=== PATIENT | female | born 1940 | race Caucasian/White ===

== ENCOUNTER → 2019-07-02 | Outpatient (CLI) | payer MEDICARE, SELFPAY ==
[2019-07-02 11:42] LABS: Thyroid Stim Hormone (TSH) 3.13 uIU/mL (0.358-3.74)
[2019-07-02 12:14] LABS: Vitamin B12 382 pg/mL (211-911)
[2019-07-04 11:07] LABS: Ceruloplasmin 30.5 mg/dL (19.0-39.0)
[2019-07-04 12:59] LABS: Copper, Serum or Plasma 143 ug/dL (72-166)
[2019-07-04 13:06] LABS: ANTINUCLEAR ANTIBODIES DIRECT Negative (Negative)
== END | disposition home or self-care (01) ==
PROVIDERS: Family Provider Family Medicine; PCP Family Medicine; Referring Provider Psychiatry & Neurology Neurology; Visit Provider Psychiatry & Neurology Neurology
DX: R25.1 Tremor, unspecified (principal)
CPT/HCPCS: 36415; 82390; 82525; 82607; 84443; 86038

== ENCOUNTER → 2019-09-12 | Outpatient (CLI) | payer MEDICARE, SELFPAY ==
[2019-09-12 12:14] LABS: Hematocrit 33.5 % (37-47); Hemoglobin 10.7 g/dL (12.0-15.0); Mean Corp Hgb Conc 31.9 g/dL (32-36); Mean Corpuscular Hgb 28.8 pg (27.0-32.0); Mean Corpuscular Volume 90.1 fL (81-99); Mean Platelet Vol. 12.4 fl (6.2-12.0); Platelet Count 112 K/mm3 (150-450); RBC Distribution Width CV 13.3 % (11.6-14.6); RBC Distribution Width SD 43.8 fl (35.1-43.9); Red Blood Count 3.72 M/mm3 (4.2-5.4)
[2019-09-12 13:42] LABS: ALB/GLOB Ratio 0.8 RATIO (0.9-2.4); AST(SGOT) 31 U/L (15-37); Alanine Aminotransfer ALT/SGPT 36 U/L (13-56); Albumin, Serum 3.4 g/dL (3.2-5.0); Alkaline Phosphatase 78 U/L (45-117); Anion Gap 11 (5-15); BUN 68 mg/dL (7-18); BUN/Creat Ratio 40.5 RATIO (10-20); Chloride 106 mmol/L (98-107); Creatinine, Serum 1.68 mg/dL (0.55-1.02); EST Glomerular Filtration Rate 31 mL/min (>60); Est Glom Filt Rate - Afr Amer 38 mL/min (>60); Globulin 4.4 g/dL (2.2-4.2); Glucose 97 mg/dL (74-106); Potassium 3.7 mmol/L (3.5-5.1); Protein, Total 7.8 g/dL (6.4-8.2); Sodium Level 142 mmol/L (136-145)
== END | disposition home or self-care (01) ==
LOC: LAB 11:10
PROVIDERS: Family Provider Family Medicine; PCP Family Medicine; Referring Provider Psychiatry & Neurology Neurology; Visit Provider Psychiatry & Neurology Neurology
DX: R25.1 Tremor, unspecified (principal)
CPT/HCPCS: 36415; 80053; 85027

== ENCOUNTER → 2025-03-04 | Outpatient (CLI) | payer MEDICARE, OTHER, SELFPAY ==
--- NOTE | 2025-03-04 13:13 | VDUE_ITS ---
Reason For Study Reason For Study: Pre-op AVF planning Right Lower Arm Left Arm Distal Radial artery diameter 0.18 x 0.20 cm. Left Brachial artery diameter 0.41 x 0.43 mm. Proximal Radial artery waveform is triphasic . Left Brachial artery waveform is triphasic . Proximal Radial artery PSV = 130.0 cm/s. Left Brachial artery PSV = 164.4 cm/s. Right Arm Cephalic Vein at distal forearm measures 0.16 x 0.16 Right Brachial artery diameter 0.36 x 0.44 mm. cm. Right Brachial artery waveform is triphasic . Cephalic Vein at mid forearm measures 0.20 x 0.22 cm. Right Brachial artery PSV = 146.2 cm/s. Cephalic Vein proximal forearm measures 0.20 x 0.18 Cephalic Vein at distal forearm measures 0.19 x 0.19 cm. cm. Cephalic Vein distal upper arm measures 0.18 x 0.20 Cephalic Vein at mid forearm measures 0.20 x 0.19 cm. cm. Cephalic Vein proximal forearm measures 0.19 x 0.18 Cephalic Vein at mid upper arm measures 0.20 x 0.20 cm. cm. Cephalic Vein distal upper arm measures 0.24 x 0.23 Cephalic Vein at proximal upper arm measures 0.19 x cm. 0.21 cm. Cephalic Vein at mid upper arm measures 0.28 x 0.30 Unable to visualize Lt Basilic Vein. cm. Left Lower Arm Cephalic Vein at proximal upper arm measures 0.30 x Distal Radial artery diameter 0.22 x 0.22 mm. 0.32 cm. Proximal Radial artery waveform is triphasic . Proximal Basilic vein measures 0.57 x 0.63 cm. Proximal Radial artery PSV =162.9/2.3 cm/s. Mid Basilic vein measures 0.42 x 0.37 cm. Distal Basilic vein measures 0.48 x 0.51 cm. Procedure This was a bilateral upper extremity venous doppler examination. Exam performed in department. VL/Dialysis Vein Map PRE-OP BILAT Interpretation Summary Bilateral upper extremity veins patent with measurements above. Bilateral upper extremity arteries patent with normal waveforms and measurement s above. Ordering Physician: Lindsey Simon Referring Physician: Gigi Deleon Performed By: Dilip Lawrence RVT ???
== END | disposition home or self-care (01) ==
PROVIDERS: PCP Internal Medicine; Referring Provider Physician Assistant; Visit Provider Physician Assistant
DX: Z01.818 Encounter for other preprocedural examination (principal); N18.4 Chronic kidney disease, stage 4 (severe)
CPT/HCPCS: 93985

== ENCOUNTER 2025-04-27 05:27 | Day surgery (SDC) | payer MEDICARE, OTHER, SELFPAY ==
--- NOTE | 2025-04-06 10:44 | PAT.ANESEVAL ---
Pre-Assessment Diagnosis/Proposed Procedure Planned Operative Procedure(s): (R) Right Arm Arteriovenous Fistula,Creation Anesthesia History Anesthesia History - clinical transformation specialist: Anesthesia History - clinical transformation specialist Hx Hospitalization No 04/03/25 15:27 Any Problems With Anesthesia No 04/03/25 15:27 Cholinesterase deficiency No 04/03/25 15:27 You/Your Family Experience No 04/03/25 15:27 fever (hyperthermia) with Relationship Recent Exposure to Contagious Disease Does patient have nerve No 04/03/25 15:27 stimulator Patient instructed to have device shut off --Does patient have Pacemaker or ICD? When Was Last Pacemaker Check QUESTION #4 FULL TEXT: You/Your Family Experience fever (hyperthermia) with Anesthesia Last Oral Intake Last Oral intake: Last Oral Intake NPO since Meds taken in AM with sips of water? Meds patient instructed to take am of surgery PONV PONV - clinical transformation specialist: PONV - clinical transformation specialist Female Yes 04/03/25 15:27 HX of Motion Sickness No 04/03/25 15:27 HX of N/V After Surgery No 04/03/25 15:27 Non-Smoker Yes 04/03/25 15:27 Duration of Surgery greater No 04/03/25 15:27 than 60 minutes Number of Risk Factors 2 04/03/25 15:27 PONV Score Moderate Risk 04/03/25 15:27 Respiratory Assessment Respiratory Assessment - clinical transformation specialist: Respiratory Tract Infection Hx - clinical transformation specialist Hx Respiratory Tract Infection No 04/03/25 15:27 STOP Sleep Apnea STOP Sleep Apnea - clinical transformation specialist: STOP Sleep Apnea - clinical transformation specialist Hx Hypertension Yes: CONTROLLED ON MED 04/03/25 15:27 Hx Sleep Apnea No 04/03/25 15:27 CPAP BIPAP Do you snore loudly (louder No 04/03/25 15:27 than talking or can be heard Do you often feel tired/ No 04/03/25 15:27 fatigued/ sleepy during daytime? Has anyone observed you stop No 04/03/25 15:27 breathing during sleep? STOP Results Negative 04/03/25 15:27 QUESTION #5 FULL TEXT : Do you snore loudly (louder than talking or can be heard through closed doors)? 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 Specify any problems Hx of Preganancy in last 3 No 04/03/25 15:27 Months Nurse Filling Out Transfusion VCHRISTIN 04/03/25 15:27 & Questions: Date: 04/03/25 04/03/25 15:27 Time: 04/03/25 15:27 Patient unable to answer at this time (ie. confused, unrespo /Reproduction History /Reproductive History - clinical transformation specialist: /Reproductive Hx- clinical transformation specialist Hx Now No 04/03/25 15:27 Gestational Age (in weeks): EDC: Hx Hx Para Hx Section SAB No 04/03/25 15:27 PFSH Medical History (Updated 04/06/25 @ 10:33 by Evelyn Gorman) Wears dentures Wears glasses Post-menopausal Depression Diabetes Walker as ambulation aid Arthritis History of renal disease Tremor Stroke/cerebrovascular accident Non-smoker BiPAP (biphasic positive airway pressure) dependence Sleep apnea Shortness of breath on exertion History of pain when walking History of edema History of echocardiogram Cardiology follow-up encounter Anemia in chronic kidney disease Secondary hyperparathyroidism Essential hypertension CKD (chronic kidney disease), stage IV Home Medications ?Medication ?Instructions ?Recorded ?Last Taken ?Type acetaminophen 325 mg capsule 325 mg PO QHS 02/23/25 Unknown History allopurinol 100 mg tablet 100 mg PO DAILY 02/23/25 Unknown History amlodipine 10 mg tablet 10 mg PO QDAY 02/23/25 Unknown History aspirin 81 mg tablet,delayed 81 mg PO QDAY 02/23/25 Unknown History release atorvastatin 40 mg tablet 40 mg PO QDAY 02/23/25 Unknown History buspirone 10 mg tablet 10 mg PO BID 02/23/25 Unknown History calcitriol 0.5 mcg capsule 0.5 mcg PO QDAY 02/23/25 Unknown History cholecalciferol (vitamin D3) 25 25 mcg PO QDAY 02/23/25 Unknown History mcg (1,000 unit) capsule clonidine HCl 0.2 mg tablet 0.2 mg PO BID 02/23/25 Unknown History furosemide 40 mg tablet (Lasix) 40 mg PO BID 02/23/25 Unknown History hydralazine 25 mg tablet 25 mg PO TID 02/23/25 Unknown History magnesium oxide 400 mg (241.3 mg 400 mg PO BID 02/23/25 Unknown History magnesium) tablet melatonin 3 mg capsule 3 mg PO HS 02/23/25 Unknown History metolazone 5 mg tablet 5 mg PO Q12H 02/23/25 Unknown History ropinirole 0.25 mg tablet 0.5 mg PO QHS 02/23/25 Unknown History spironolactone 100 mg tablet 100 mg PO QDAY 02/23/25 Unknown History carboxymethylcellulose sodium 0.5 1 drp EACH EYE DAILY 04/06/25 Unknown History % eye drops (Refresh Tears) epoetin herbert-epbx 10,000 unit/mL 10,000 unit subcut .[id number] 04/06/25 Unknown History injection solution (Retacrit) Allergy/AdvReac Type Severity Reaction Status Date / Time No Known Allergies Allergy Verified 04/03/25 15:13 Surgical History Hx of bilateral cataract extraction Hx of eye surgery Hx of hernia repair Hx laparoscopic cholecystectomy Hx of hysterectomy History of renal stent Social History adopted: No current occupational exposures/hazards: No pets and animals: No history of recent travel: No Smoking Status: Never smoker Electronic Cigarette Use: not used second hand exposure: No alcohol intake: never substance use type: does not use diet: diabetic Audit: Pertinent Findings Pertinent Findings EKG Perinent findings: 07/2022: Sinus Bradycardia with Sinus arrhythmia, nonspecific T wave abnormality Echo (EF%) pertinent findings: TTE 10/2021: Normal LV size and systolic function LVEF of 55-60%; Mild TR with normal PA pressures Recommendation Anesthesia Recommendation Anesthesia recommendation: F/U recommended (She was admitted for decompensated heart failure in the last two years. I did not see a cardiology note, but she should have cardiac clearance done (along with having cardiology note available))
--- NOTE | 2025-04-20 19:34 | PAT.ANE_ITS ---
Pre-Assessment Diagnosis/Proposed Procedure Planned Operative Procedure(s): (R) Right Arm Arteriovenous Fistula,Creation Anesthesia History Anesthesia History - role player: Anesthesia History - role player Hx Hospitalization No 04/03/25 15:27 Any Problems With Anesthesia No 04/03/25 15:27 Cholinesterase deficiency No 04/03/25 15:27 You/Your Family Experience No 04/03/25 15:27 fever (hyperthermia) with Relationship Recent Exposure to Contagious Disease Does patient have nerve No 04/03/25 15:27 stimulator Patient instructed to have device shut off --Does patient have Pacemaker or ICD? When Was Last Pacemaker Check QUESTION #4 FULL TEXT: You/Your Family Experience fever (hyperthermia) with Anesthesia Last Oral Intake Last Oral intake: Last Oral Intake NPO since Meds taken in AM with sips of water? Meds patient instructed to take am of surgery PONV PONV - role player: PONV - role player Female Yes 04/03/25 15:27 HX of Motion Sickness No 04/03/25 15:27 HX of N/V After Surgery No 04/03/25 15:27 Non-Smoker Yes 04/03/25 15:27 Duration of Surgery greater No 04/03/25 15:27 than 60 minutes Number of Risk Factors 2 04/03/25 15:27 PONV Score Moderate Risk 04/03/25 15:27 Respiratory Assessment Respiratory Assessment - role player: Respiratory Tract Infection Hx - role player Hx Respiratory Tract Infection No 04/03/25 15:27 STOP Sleep Apnea STOP Sleep Apnea - role player: STOP Sleep Apnea - role player Hx Hypertension Yes: CONTROLLED ON MED 04/03/25 15:27 Hx Sleep Apnea No 04/03/25 15:27 CPAP BIPAP Do you snore loudly (louder No 04/03/25 15:27 than talking or can be heard Do you often feel tired/ No 04/03/25 15:27 fatigued/ sleepy during daytime? Has anyone observed you stop No 04/03/25 15:27 breathing during sleep? STOP Results Negative 04/03/25 15:27 QUESTION #5 FULL TEXT : Do you snore loudly (louder than talking or can be heard through closed doors)? 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 Specify any problems Hx of Preganancy in last 3 No 04/03/25 15:27 Months Nurse Filling Out Transfusion VCHRISTIN 04/03/25 15:27 & Questions: Date: 04/03/25 04/03/25 15:27 Time: 04/03/25 15:27 Patient unable to answer at this time (ie. confused, unrespo /Reproduction History /Reproductive History - role player: /Reproductive Hx- role player Hx Now No 04/03/25 15:27 Gestational Age (in weeks): EDC: Hx Hx Para Hx Section SAB No 04/03/25 15:27 PFSH Medical History Wears dentures Wears glasses Post-menopausal Depression Diabetes Walker as ambulation aid Arthritis History of renal disease Tremor Stroke/cerebrovascular accident Non-smoker BiPAP (biphasic positive airway pressure) dependence Sleep apnea Shortness of breath on exertion History of pain when walking History of edema History of echocardiogram Cardiology follow-up encounter Anemia in chronic kidney disease Secondary hyperparathyroidism Essential hypertension CKD (chronic kidney disease), stage IV Home Medications ?Medication ?Instructions ?Recorded ?Last Taken ?Type acetaminophen 325 mg capsule 325 mg PO PRN pain Unknown History allopurinol 100 mg tablet 50 mg PO DAILY 02/23/25 Unkn own History amlodipine 10 mg tablet 10 mg PO QDAY 02/23/25 Unkno wn History aspirin 81 mg tablet,delayed 81 mg PO QDAY 02/23/25 Un known History release atorvastatin 40 mg tablet 40 mg PO QDAY 02/23/25 Unkno wn History buspirone 10 mg tablet 10 mg PO BID 02/23/25 Unknow n History calcitriol 0.5 mcg capsule 0.5 mcg PO QDAY 02/23/25 Un known History cholecalciferol (vitamin D3) 25 25 mcg PO QDAY 5 Unknown History mcg (1,000 unit) capsule clonidine HCl 0.2 mg tablet 0.2 mg PO TID 02/23/25 Unk nown History furosemide 40 mg tablet (Lasix) 40 mg PO BID 02/23/25 Unknown History hydralazine 25 mg tablet 25 mg PO TID 02/23/25 Unknow n History magnesium oxide 400 mg (241.3 mg 400 mg PO BID 5 Unknown History magnesium) tablet melatonin 3 mg capsule 3 mg PO HS 02/23/25 Unknown History ropinirole 0.25 mg tablet 0.5 mg PO QHS 02/23/25 Unkno wn History spironolactone 100 mg tablet 100 mg PO QDAY 02/23/25 U nknown History carboxymethylcellulose sodium 0.5 1 drp EACH EYE DAILY 04/06/25 Unknown History % eye drops (Refresh Tears) epoetin herbert-epbx 10,000 unit/mL 10,000 unit subcut .Q 2WEEKS 04/06/25 Unknown History injection solution (Retacrit) Allergy/AdvReac Type Severity Reaction Status Date / Time No Known Allergies Allergy Verified 04/03/25 15:13 Surgical History Hx of bilateral cataract extraction Hx of eye surgery Hx of hernia repair Hx laparoscopic cholecystectomy Hx of hysterectomy History of renal stent Social History adopted: No current occupational exposures/hazards: No pets and animals: No history of recent travel: No Smoking Status: Never smoker Electronic Cigarette Use: not used second hand exposure: No alcohol intake: never substance use type: does not use diet: diabetic Audit: Pertinent Findings HISTORY of Pertinent Findings History of Pertinent Findings: EKG Pertinent Findings EKG Perinent findings 07/2022: Sinus Bradycardia 04/06/25 10:47 with Sinus arrhythmia, nonspecific T wave abnormality Echo Pertinent Findings Echo (EF%) pertinent findings TTE 10/2021: Normal LV size 04/06/25 10:47 and systolic function LVEF of 55-60%; Mild TR with normal PA pressures Pertinent Findings Consult pertinent findings: April 10, 2025. aVldo Gray CNP. No further testing needed prior to procedure. Patient is cleared for surgery. Recommendation Anesthesia Recommendation Anesthesia recommendation: OPTIMIZED for anesthesia
[2025-04-27] VITALS (8 sets, daily range): BP systolic 165–195; BP diastolic 45–63; PULSE 66–79; RESP 16–18; TEMP 36.3–36.9; O2SAT 92–97; BMI 26.2
--- OUTSIDE RECORDS SUMMARY | 2025-04-27 05:37 | XMS RPT_ITS | CCD ---
Author Organization [facility] ion [facility] [employer] [facility] Care Team Providers Care Dental Practice Manager Name Role Phone Unavailable Primary Care Provider UnavailAvelino Macias MD Primary Care Provider [phone] Avelino Deleon MD Primary Care Provider Avelino Deleon MD Primary Care Provider LAURIE STEIN Attending Unavailable LAURIE STEIN Attending Unavailable LATOUF, BUTROS Referring Unavailable Latouf, Butros Primary Care Provider Charlene PROCUREMENT SPECIALIST - ECONOMIC DEVELOPMENT DIRECTOR, Rosario K Unavailable CHARLIE SYED Referring Unavailable LATOUF, BUTROS Primary Care Unavailable NONE, PCP Referring Unavailable JOY PAGE Admitting Unavailable LATOUF, BUTROS Primary Care Unavailable REBECCA RODRIGUEZ Consulting Unavailable LAURIE TAMEZ Attending Unavailable Avelino Deleon MD Primary Care Provider [phone] Corporate, Doctor Attending Unavailable Devon Toussaint Attending Unavailable Devon Toussaint Referring Unavailable Corporate, Doctor Attending Unavailable Dr. Avelino Deleon MD Primary Care Provider [phone] Dr. Avelino Deleon MD Referring Provider [phone] Lindsey Godinez Attending Provider Lindsey Godinez Referring Provider Dr. Jose C Ashraf MD Attending Provider HAMZAH KILPATRICK Attending Unavailable LATOUF, BUTROS Primary Care Unavailable LUCY SNEED MD Attending Unava ilable LUCY SNEED MD Primary Care Unava ilable BUCKTOWARSINKaitlynn, LUCY HOWARD Admitting Unava ilable AVELINO DELEON MD Consulting Unavailable PROVIDER, UNKNOWN Consulting Unavailable PROVIDER, UNKNOWN Consulting Unavailable PROVIDER, UNKNOWN Consulting Unavailable BUCKTOWARLUCY GONZALES MD Attending Unava ilable BUCKTOWARSINKaitlynn, LUCY HOWARD Admitting Unava ilable BUCKTOWARSINKaitlynn, LUCY HOWARD Primary Care Unava ilable AVELINO DELEON MD Consulting Unavailable PROVIDER, UNKNOWN Consulting Unavailable PROVIDER, UNKNOWN Consulting Unavailable PROVIDER, UNKNOWN Consulting Unavailable BUCKTOWARSINKaitlynn, LUCY HOWARD Attending Unava ilable BUCKTOWARSING, LUCY HOWARD Admitting Unava ilable BUCKTOWARSING, LUCY HOWARD Primary Care Unava ilable LATOUAVELINO Domínguez MD Consulting Unavailable PROVIDER, UNKNOWN Consulting Unavailable PROVIDER, UNKNOWN Consulting Unavailable PROVIDER, UNKNOWN Consulting Unavailable BUCKTOWARSINKaitlynn, LUCY HOWARD Attending Unava ilable BUCKTOWARSINKaitlynn, LUCY HOWARD Primary Care Unava ilable BUCKTOWARCHRISTIAN, LUCY HOWARD Admitting Unava ilable LATOUAVELINO Domínguez MD Consulting Unavailable PROVIDER, UNKNOWN Consulting Unavailable PROVIDER, UNKNOWN Consulting Unavailable PROVIDER, UNKNOWN Consulting Unavailable BUCKTOWARLUCY GONZALES MD Primary Care Unava ilable BUCKTOWARCHRISTIAN, LUCY HOWARD Admitting Unava ilable BUCKTOWARSING, LUCY HOWARD Attending Unava ilable KENROYOUAVELINO Domínguez MD Consulting Unavailable PROVIDER, UNKNOWN Consulting Unavailable PROVIDER, UNKNOWN Consulting Unavailable PROVIDER, UNKNOWN Consulting Unavailable AVELINO DELEON MD Consulting Unavailable AVELINO DELEON MD Attending Unavailable AVELINO DELEON MD Primary Care Unavailable AVELINO DELEON MD Admitting Unavailable PROVIDER, UNKNOWN Consulting Unavailable PROVIDER, UNKNOWN Consulting Unavailable PROVIDER, UNKNOWN Consulting Unavailable AVELINO DELEON MD Attending Unavailable AVELINO DELEON MD Consulting Unavailable AVELINO DELEON MD Admitting Unavailable AVELINO DELEON MD Primary Care Unavailable PROVIDER, UNKNOWN Consulting Unavailable PROVIDER, UNKNOWN Consulting Unavailable PROVIDER, UNKNOWN Consulting Unavailable LUCY SNEED MD Referring Unava ilable AVELINO DELEON MD Attending Unavailable AVELINO DELEON MD Primary Care Unavailable AVELINO DELEON MD Consulting Unavailable AVELINO DELEON MD Admitting Unavailable PROVIDER, UNKNOWN Consulting Unavailable PROVIDER, UNKNOWN Consulting Unavailable PROVIDER, UNKNOWN Consulting Unavailable BUCKTOWARSINLUCY Calderón MD Attending Unava ilable BUCKTOWARSINLUCY Calderón MD Admitting Unava ilable BUCKTOWARLUCY GONZALES MD Primary Care Unava ilable LATOUCatrachita, AVELINO HOWARD Consulting Unavailable PROVIDER, UNKNOWN Consulting Unavailable PROVIDER, UNKNOWN Consulting Unavailable PROVIDER, UNKNOWN Consulting Unavailable YOLANDATOLUCY JAIME MD Attending Unava ilable BUCKTOWARCHRISTIAN, LUCY HOWARD Primary Care Unava ilable YOLANDATOWARLUCY GONZALES MD Admitting Unava ilable LATOUF, AVELINO HOWARD Consulting Unavailable PROVIDER, UNKNOWN Consulting Unavailable PROVIDER, UNKNOWN Consulting Unavailable PROVIDER, UNKNOWN Consulting Unavailable BUCKTOWARCHRISTIAN, LUCY HOWARD Attending Unava ilable BUCKTOWARSINLUCY Calderón MD Primary Care Unava ilable BUCKTOWARSINKaitlynn, LUCY HOWARD Admitting Unava ilable LATOUF, AVELINO HOWARD Consulting Unavailable PROVIDER, UNKNOWN Consulting Unavailable PROVIDER, UNKNOWN Consulting Unavailable PROVIDER, UNKNOWN Consulting Unavailable BUCKTOYENI, LUCY HOWARD Attending Unava ilable BUCKTOWARCHRISTIAN, LUCY HOWARD Primary Care Unava ilable BUCKTOWARSINKaitlnyn, LUCY HOWARD Admitting Unava ilable LATOUF, AVELINO HOWARD Referring Unavailable LATOUCatrachita, AVELINO HOWARD Consulting Unavailable PROVIDER, UNKNOWN Consulting Unavailable PROVIDER, UNKNOWN Consulting Unavailable PROVIDER, UNKNOWN Consulting Unavailable BUCKTOWARLUCY GONZALES MD Attending Unava ilable BUCKTOWARSINLUCY Calderón MD Primary Care Unava ilable YOLANDATOWARLUCY GONZALES MD Admitting Unava ilable LATOUF, AVELINO HOWARD Consulting Unavailable PROVIDER, UNKNOWN Consulting Unavailable PROVIDER, UNKNOWN Consulting Unavailable PROVIDER, UNKNOWN Consulting Unavailable BUCKTOLUCY JAIME MD Attending Unava ilable BUCKTOWARSINLUCY Calderón MD Primary Care Unava ilable BUCKTOWARCHRISTIAN, LUCY HOWARD Admitting Unava ilable LATOUF, AVELINO HOWARD Consulting Unavailable PROVIDER, UNKNOWN Consulting Unavailable PROVIDER, UNKNOWN Consulting Unavailable PROVIDER, UNKNOWN Consulting Unavailable BUCKTOLUCY JAIME MD Attending Unava ilable BUCKTOWARSINLUCY Calderón MD Primary Care Unava ilable BUCKTOWARCHRISTIAN, LUCY HOWARD Admitting Unava ilable LATOUF, AVELINO HOWARD Consulting Unavailable PROVIDER, UNKNOWN Consulting Unavailable PROVIDER, UNKNOWN Consulting Unavailable PROVIDER, UNKNOWN Consulting Unavailable AVELINO DELEON MD Attending Unavailable LATOUAVELINO Domínguez MD Primary Care Unavailable KENROYOUCatrachita, AVELINO HOWARD Consulting Unavailable LATOUF, AVELINO HOWARD Admitting Unavailable PROVIDER, UNKNOWN Consulting Unavailable PROVIDER, UNKNOWN Consulting Unavailable PROVIDER, UNKNOWN Consulting Unavailable LUCY SNEED MD Primary Care Unava ilable YOLANDATOWARLUCY GONZALES MD Attending Unava ilable BUCKTOWARSINKatilynn, LUCY HOWARD Admitting Unava ilable LATOUF, AVELINO HOWARD Referring Unavailable LATOUCatrachita, AVELINO HOWARD Consulting Unavailable PROVIDER, UNKNOWN Consulting Unavailable PROVIDER, UNKNOWN Consulting Unavailable PROVIDER, UNKNOWN Consulting Unavailable YOLANDATOWARLUCY GONZALES MD Primary Care Unava ilable BUCKTOWARSINKaitlynn, LUCY HOWARD Attending Unava ilable BUCKTOWARSINKaitlynn, LUCY HOWARD Admitting Unava ilable LATOUF, AVELINO HOWARD Consulting Unavailable PROVIDER, UNKNOWN Consulting Unavailable PROVIDER, UNKNOWN Consulting Unavailable PROVIDER, UNKNOWN Consulting Unavailable YOLANDATOLUCY JAIME MD Primary Care Unava ilable BUCKTOWARSINKaitlynn, LUCY HOWARD Attending Unava ilable BUCKTOWARSING, LUCY HOWARD Admitting Unava ilable LATOUF, AVELINO HOWARD Referring Unavailable LATFRANCOIS, AVELINO HOWARD Consulting Unavailable PROVIDER, UNKNOWN Consulting Unavailable PROVIDER, UNKNOWN Consulting Unavailable PROVIDER, UNKNOWN Consulting Unavailable YOLANDATOLUCY JAIME MD Referring Unava ilable LATOUF, AVELINO HOWARD Attending Unavailable MARY JO, AVELINO HOWARD Primary Care Unavailable AVELINO DELEON MD Consulting Unavailable MARY JO, AVELINO HOWARD Admitting Unavailable PROVIDER, UNKNOWN Consulting Unavailable PROVIDER, UNKNOWN Consulting Unavailable PROVIDER, UNKNOWN Consulting Unavailable AVELINO DELEON MD Attending Unavailable KENROYOUAVELINO Domínguez MD Primary Care Unavailable LATOUCatrachita, AVELINO HOWARD Admitting Unavailable LATOUF, AVELINO HOWARD Consulting Unavailable PROVIDER, UNKNOWN Consulting Unavailable PROVIDER, UNKNOWN Consulting Unavailable PROVIDER, UNKNOWN Consulting Unavailable YOLANDATOLUCY JAIME MD Attending Unava ilable BUCKTOWARSINKaitlynn, LUCY HOWARD Admitting Unava ilable BUCKTOWARSINLUCY Calderón MD Primary Care Unava ilable LATOUF, AVELINO HOWARD Consulting Unavailable PROVIDER, UNKNOWN Consulting Unavailable PROVIDER, UNKNOWN Consulting Unavailable PROVIDER, UNKNOWN Consulting Unavailable YOLANDATOLUYC JAIME MD Attending Unava ilable BUCKTOWARSING, BHAVNISH MD Primary Care Unava ilable YOLANDATOWARLUCY GONZALES MD Admitting Unava ilable LATOUFAVELINO MD Consulting Unavailable PROVIDER, UNKNOWN Consulting Unavailable PROVIDER, UNKNOWN Consulting Unavailable PROVIDER, UNKNOWN Consulting Unavailable BUCKTOWARLUCY GONZALES MD Attending Unava ilable YOLANDATOWARLUCY GONZALES MD Primary Care Unava ilable YOLANDATOWARCHRISTIAN, LUCY HOWARD Admitting Unava ilable LATOUF, AVELINO HOWARD Consulting Unavailable PROVIDER, UNKNOWN Consulting Unavailable PROVIDER, UNKNOWN Consulting Unavailable PROVIDER, UNKNOWN Consulting Unavailable LATOUAVELINO Domínguez MD Consulting Unavailable BUCKTOWARLUCY GONZALES MD Attending Unava ilable BUCKTOWARLUCY GONZALES MD Primary Care Unava ilable BUCKTOWARCHRISTIAN, LUCY HOWARD Admitting Unava ilable PROVIDER, UNKNOWN Consulting Unavailable PROVIDER, UNKNOWN Consulting Unavailable PROVIDER, UNKNOWN Consulting Unavailable BUCKTOLUCY JAIME MD Attending Unava ilable BUCKTOWARCHRISTIAN, LUCY HOWARD Admitting Unava ilable BUCKTOWARCHRISTIAN, LUCY HOWARD Primary Care Unava ilable LATOUCatrachita, AVELINO HOWARD Consulting Unavailable PROVIDER, UNKNOWN Consulting Unavailable PROVIDER, UNKNOWN Consulting Unavailable PROVIDER, UNKNOWN Consulting Unavailable BUCKTOWARLUCY GONZALES MD Admitting Unava ilable BUCKTOWARSINKaitlynn, LUCY HOWARD Attending Unava ilable BUCKTOWARCHRISTIAN, LUCY HOWARD Primary Care Unava ilable AVELINO DELEON MD Consulting Unavailable AVELINO DELEON MD Referring Unavailable PROVIDER, UNKNOWN Consulting Unavailable PROVIDER, UNKNOWN Consulting Unavailable PROVIDER, UNKNOWN Consulting Unavailable BUCKTOLUCY JAIME MD Attending Unava ilable BUCKTOWARSINKaitlynn, LUCY HOWARD Primary Care Unava ilable BUCKTOWARLUCY GONZALES MD Admitting Unava ilable LATOUF, AVELINO HOWARD Consulting Unavailable PROVIDER, UNKNOWN Consulting Unavailable PROVIDER, UNKNOWN Consulting Unavailable PROVIDER, UNKNOWN Consulting Unavailable BUCKTOLUCY JAIME MD Attending Unava ilable BUCKTOWARCHRISTIAN, LUCY HOWARD Primary Care Unava ilable YOLANDATOWARLUCY GONZALES MD Admitting Unava ilable LATOUCatrachita, AVELINO HOWARD Consulting Unavailable PROVIDER, UNKNOWN Consulting Unavailable PROVIDER, UNKNOWN Consulting Unavailable PROVIDER, UNKNOWN Consulting Unavailable BUCKTOLUCY JAIME MD Attending LUCY Sam MD Primary Care LUCY Sam MD Admitting AVELINO Bee MD Consulting Unavailable PROVIDER, UNKNOWN Consulting Unavailable PROVIDER, UNKNOWN Consulting Unavailable PROVIDER, UNKNOWN Consulting Unavailable Latouf, Butros Primary Care Unavailable Jose C Ashraf Attending Unavailable Latouf, Butros Primary Care Unavailable Simon, Lindsey Attending Unavailable Simon, Lindsey Referring Unavailable Cedar GlenJose C juan Attending Unavailable Latouf, Butros Primary Care Unavailable Latouf, Butros Primary Care Unavailable Latouf, Butros Referring Unavailable Lindsey Simon Attending Unavailable Latouf, Butros Referring Unavailable Jose C Ashraf Attending Unavailable Latouf, Butros Primary Care Unavailable Medications Current Medications Medication Drug Class(es) Dates Sig (Normalized) Sig (Original) calcitriol 0.0005 mg oral capsule (2 sources) Vitamin D3 Analog Start: 04-06-2025 take 1 capsule by mouth once daily calcitriol (ROCALTROL) 0.5 mcg capsule Take 0.5 mcg by mouth once daily. 04/06/2025 Active Start: 02-23-2025 take 1 capsule by mo uth once daily Calcitriol 0.5 mcg capsule Discontinued 0.5 ug PO daily February 23, 2025 12:00am chlorthalidone 25 mg oral tablet (12 sources) Thiazide-like Diuretic Start: 02-16-2024 End: 03-17-2024 take 0.5 tablet by mouth once daily chlorthalidone (Hygroton) 25 MG tablet Take 0.5 tablets (12.5 mg) by mouth daily. 15 tablet 0 02/16/2024 03/17/2024 Active Start: 02-13-2024 End: 02-16-2024 chlorthalidone (Hygroton) ta blet 12.5 mg Start: 02-18-2022 End: 04-10-2025 chlorthalidone (HYGROTON) 25 mg tablet Take 25 mg by mouth every 48 hours. 02/18/2022 04/10/2025 Discontinued (Discontinued by another Health Care Provider) End: 02-16-2024 take 1 tablet by mouth every other day chlorthalidone (Hygroton) 25 MG tablet Take 25 mg by mouth every other day. 0 02/16/2024 Discontinued (Stop taking at discharge) Comment on above: Take 25 mg by mouth every 48 hours. cloNIDine hydrochloride 0.2 mg oral tablet (14 sources) Central alpha-2 Adrenergic Agonist Start: take 1 tablet by mouth three times daily cloNIDine HCl (CATAPRES) 0.2 mg tablet Take 0.2 mg by mouth three times a day. 04/06/2025 Active Start: 02-23-2025 take 1 tablet by adali th twice daily Clonidine Hcl 0.2 mg tablet Discontinued 0.2 mg PO TWICE A DAY February 23, 2025 12:00am Start: 05-12-2022 End: 04-10-2025 take 1 tablet by mouth every eight hours as needed cloNIDine HCl (CATAPRES) 0.1 mg tablet Take 1 tablet by mouth every 8 hours as needed (For systolic > 180mmHG). 05/12/2022 04/10/2025 Discontinued (Dosage adjustment) Start: 12-07-2021 take 1 tablet by adali th twice daily cloNIDine HCl (CATAPRES) 0.1 mg tablet Take 1 tablet by mouth twice daily. 60 tablet 1 12/07/2021 Active Comment on above: Take 1 tablet by adali th twice daily. Take 1 tablet by adali th every 8 hours as needed (For systolic > 180mmHG). furosemide 40 mg oral tablet (2 sources) Loop Diuretic Start: 04-08-2025 take 1 tablet by mouth twice daily furosemide (LASIX) 40 mg tablet Take 40 mg by mouth two times a day. 04/08/2025 Active Start: 02-23-2025 take 1 tablet by adali th twice daily as needed Furosemide (Lasix) 40 mg tablet Discontinued 40 mg PO TWICE A DAY as needed February 23, 2025 12:00am metOLazone 5 mg oral tablet (2 sources) Thiazide-like Diuretic Start: 04-06-2025 take 1 tablet by mouth twice daily metOLazone (ZAROXOLYN) 5 mg tablet Take 5 mg by mouth two times a day. 04/06/2025 Active Start: 02-23-2025 take 1 tablet by adali th every twelve hours Metolazone 5 mg tablet Discontinued 5 mg PO Q12H February 23, 2025 12:00am rOPINIRole 0.5 mg oral tablet (2 sources) Nonergot Dopamine Agonist Start: 03-25-2025 take 1 tablet by mouth once daily in the evening rOPINIRole (REQUIP) 0.5 mg tablet Take 0.5 mg by mouth every evening. 03/25/2025 Active Start: 02-23-2025 take 1 tablet by adali th at bedtime Ropinirole 0.25 mg tablet Discontinued 0.25 mg PO AT BEDTIME February 23, 2025 12:00am administer 1-3 hours before bedtime spironolactone 100 mg oral tablet (18 sources) Aldosterone Antagonist Start: 03-31-2025 take 1 tablet by mouth once daily spironolactone (ALDACTONE) 100 mg tablet Take 100 mg by mouth once daily. 03/31/2025 Active Start: 02-23-2025 take 1 tablet by adali th once daily Spironolactone 100 mg tablet Discontinued 100 mg PO daily February 23, 2025 12:00am Start: 02-16-2024 End: 02-15-2025 take 1 tablet by mouth once daily spironolactone (Aldactone) 50 MG tablet Take 1 tablet (50 mg) by mouth daily. 30 tablet 11 02/16/2024 02/15/2025 Active Start: 02-16-2024 End: 02-16-2024 spironolactone (Aldactone) t ablet 50 mg Start: 05-13-2022 End: 04-10-2025 spironolactone (ALDACTONE) 2 5 mg tablet Take 1 tablet by mouth every 48 hours. 05/13/2022 04/10/2025 Discontinued (Dosage adjustment) Start: 12-20-2021 take 1 tablet by adali th once daily spironolactone (ALDACTONE) 100 mg tablet Take 1 tablet by mouth once daily. 90 tablet 3 12/20/2021 Active End: 02-16-2024 take 1 tablet by mouth once daily spironolactone (Aldactone) 25 MG tablet Take 25 mg by mouth daily. 0 02/16/2024 Discontinued (Stop taking at discharge) Comment on above: Take 1 tablet by adali th once daily. Take 1 tablet by adali th every 48 hours. Completed/Discontinued Medications Medication Drug Class(es) Dates Sig (Normalized) Sig (Original) acetaminophen 325 mg oral capsule (11 sources) Start: 04-21-2025 take 1 capsule by mouth once as needed Acetaminophen 325 mg capsule Discontinued 325 mg PO ONCE as needed February 23, 2025 12:00am Start: 02-11-2024 End: 02-16-2024 take 1 tablet by mouth every six hours as needed for pain and fever acetaminophen (Tylenol) tablet 650 mg take 1 tablet by adali th every four hours as needed acetaminophen 650 mg CR tablet Take 650 mg by mouth every 4 hours as needed. Active take 650 mg rectal r oute every four hours as needed for pain acetaminophen (Tylenol) 650 MG suppository Insert 650 mg into the rectum every 4 hours as needed for mild pain (1-3). 0 Active take 1 tablet by adali th every eight hours as needed acetaminophen (TYLENOL 8 HOUR) 650 mg CR tablet Take 650 mg by mouth every 8 hours as needed. 0 Active Comment on above: Take 650 mg by mouth every 8 hours as needed. Take 650 mg by mouth every 4 hours as needed. allopurinol 100 mg oral tablet (4 sources) Xanthine Oxidase Inhibitor Start: 02-23-2025 Allopurinol 100 mg tablet Discontinued 50 mg PO .every other day February 23, 2025 12:00am Start: 09-11-2023 allopurinol (Z YLOPRIM) 100 mg tablet Take 50 mg by mouth once daily. 09/11/2023 Active take 2 tablets by mo wih once daily allopurinol (Zyloprim) 100 MG tablet Take 200 mg by mouth daily. 0 Active amLODIPine 10 mg oral tablet (8 sources) Dihydropyridine Calcium Channel Guevara Start: 02-13-2024 End: 02-15-2025 take 1 tablet by mouth once daily Amlodipine 10 mg tablet Discontinued 10 mg PO daily February 23, 2025 12:00am Start: 02-12-2024 End: 02-13-2024 amLODIPine (Norvasc) tablet 5 mg aspirin 81 mg delayed release oral tablet (16 sources) Platelet Aggregation Inhibitor, Nonsteroidal Anti-inflammatory Drug Start: 02-23-2025 take 1 tablet by mouth once daily Aspirin 81 mg tablet,delayed release (DR/EC) Discontinued 81 mg PO daily February 23, 2025 12:00am Start: 12-07-2021 End: 03-17-2024 take 1 tablet by mouth once daily aspirin 81 MG EC tablet Take 1 tablet (81 mg) by mouth daily. 30 tablet 0 02/16/2024 03/17/2024 Active End: 04-10-2025 take 1 tablet by mouth once daily aspirin 325 mg tablet Take 325 mg by mouth once daily. 04/10/2025 Discontinued (Discontinued by another Health Care Provider) Comment on above: Take 1 tablet by adali th once daily. Take 325 mg by mouth once daily. atorvastatin 40 mg oral tablet (8 sources) HMG-CoA Reductase Inhibitor Start: End: take 1 tablet by mouth once daily Atorvastatin 40 mg tablet Discontinued 40 mg PO daily February 23, 2025 12:00am Start: 02-12-2024 End: 02-12-2024 atorvastatin (Lipitor) table t 40 mg bisacodyl 10 mg rectal suppository (2 sources) Stimulant Laxative Start: 02-11-2024 End: 02-16-2024 take 10 mg rectal route every twenty-four hours as needed for constipation bisacodyl (Dulcolax) suppository 10 mg busPIRone hydrochloride 10 mg oral tablet (13 sources) Start: 02-12-2024 End: 02-16-2024 busPIRone (Buspar) tablet 10 mg Start: 09-27-2021 take 1 tablet by adali th twice daily Buspirone 10 mg tablet Discontinued 10 mg PO TWICE A DAY February 23, 2025 12:00am Start: 09-27-2021 take 1 tablet by adali th once daily busPIRone (BUSPAR) 10 mg tablet Take 10 mg by mouth once daily. 0 09/27/2021 Active Comment on above: Take 10 mg by mouth once daily. Take 10 mg by mouth twice daily. carvedilol 25 mg oral tablet (8 sources) alpha-Adrenergic Guevara, beta-Adrenergic Guevara Start: 12-07-2021 take 0.5 tablet by mouth twice daily carvedilol (COREG) 25 mg tablet Take 0.5 tablets by mouth twice daily. 60 tablet 1 12/07/2021 Active End: 04-10-2025 take 1 tablet by mouth twice daily at mealtime carvedilol (COREG) 12.5 mg tablet Take 12.5 mg by mouth twice daily with meals. 04/10/2025 Discontinued (Discontinued by another Health Care Provider) Comment on above: Take 0.5 tablets by mouth twice daily. Take 12.5 mg by mout h twice daily with meals. cholecalciferol 0.025 mg oral capsule (12 sources) Vitamin D Start: 02-24-20 take 1 capsule by mouth once daily Cholecalciferol (Vitamin D3) 25 mcg (1,000 unit) capsule Discontinued 25 ug PO daily February 23, 2025 12:00am End: 04-10-2025 take 1 capsule by mouth once daily Cholecalciferol, Vitamin D3, 25 mcg (1,000 unit) cap Take 1,000 Units by mouth once daily. Active Cholecalciferol, Vitamin D3, (VITAMIN D) 25 mcg (1,000 unit) cap Take 1,000 Units by mouth once daily. 0 Active Comment on above: Take 1,000 Units by mouth once daily. clopidogrel 75 mg oral tablet (7 sources) P2Y12 Platelet Inhibitor Start: 2 End: 5 take 1 tablet by mouth once daily clopidogrel (PLAVIX) 75 mg tablet Take 1 tablet by mouth once daily. 90 tablet 05/04/2022 04/10/2025 Discontinued (Discontinued by another Health Care Provider) Comment on above: Take 1 tablet by adali th once daily. docusate sodium 50 mg / sennosides, jail 8.6 mg oral tablet (2 sources) Start: 4 End: 4 senna-docusate sodium (Senokot-S) 8.6-50 MG tablet 2 tablet doxazosin 2 mg oral tablet (12 sources) alpha-Adrenergic Guevara Start: 4 End: 4 doxazosin (Cardura) tablet 2 mg Start: 05-12-2022 End: 04-10-2025 take 1 tablet by mouth twice daily doxazosin (CARDURA) 4 mg tablet Take 1 tablet by mouth twice daily. 05/12/2022 04/10/2025 Discontinued (Discontinued by another Health Care Provider) Start: 11-28-2021 take 1 tablet by adali th once daily at bedtime doxazosin (CARDURA) 4 mg tablet Indications: Localized edema Take 1 tablet by mouth daily at bedtime. 90 tablet 3 11/28/2021 Active Comment on above: Take 1 tablet by adali th daily at bedtime. Take 1 tablet by adali th twice daily. 1 ml epoetin herbert 89462 unt/ml injection (2 sources) Erythropoiesis-sti mulating Agent End: 4 epoetin herbert (Epogen,Procrit) 78226 UNIT/ML injection Inject 10,000 Units under the skin every 14 (fourteen) days. 0 02/16/2024 Discontinued (Stop taking at discharge) escitalopram 20 mg oral tablet (10 sources) Serotonin Reuptake Inhibitor Start: End: 5 take 1 tablet by mouth once daily escitalopram oxalate (LEXAPRO) 20 mg tablet Take 20 mg by mouth once daily. 08/27/2021 04/10/2025 Discontinued (Discontinued by another Health Care Provider) Start: 08-27-2021 take 1 tablet by adali th every week escitalopram oxalate (LEXAPRO) 20 mg tablet Take 20 mg by mouth one time a week. 0 08/27/2021 Active Comment on above: Take 20 mg by mouth one time a week. Take 20 mg by mouth once daily. ferrous sulfate 325 mg oral tablet (10 sources) End: 04-10-2025 take 1 tablet by mouth once daily at breakfast ferrous sulfate 325 mg (65 mg iron) tablet Take 325 mg by mouth daily with breakfast. 04/10/2025 Discontinued (Discontinued by another Health Care Provider) End: 02-16-2024 take 1 tablet by mouth once daily at breakfast ferrous sulfate 325 (65 Fe) MG EC tablet Take 325 mg by mouth daily (with breakfast). Do not crush, chew, or split. 0 02/16/2024 Discontinued (Stop taking at discharge) Comment on above: Take 325 mg by mouth daily with breakfast. folic acid 1 mg oral tablet (2 sources) End: 4 take 1 tablet by mouth once daily folic acid (Folvite) 1 MG tablet Take 1 mg by mouth daily. 0 02/16/2024 Discontinued (Stop taking at discharge) gadobutrol (Gadavist) injection 12 mL (2 sources) Start: 4 End: 4 gadobutrol (Gadavist) injection 12 mL hydrALAZINE hydrochloride 25 mg oral tablet (11 sources) Arteriolar Vasodilator Start: 4 take 1 tablet by mouth three times daily Hydralazine 25 mg tablet Discontinued 25 mg PO THREE TIMES A DAY February 23, 2025 12:00am Start: 02-15-2024 End: 03-16-2024 hydrALAZINE (Apresoline) tab let 25 mg Start: 02-12-2024 End: 02-15-2024 take 10 mg intravenously every four hours as needed for hypertension hydrALAZINE (Apresoline) injection 10 mg Start: 12-07-2021 take 1 tablet by adali th three times daily hydrALAZINE (APRESOLINE) 25 mg tablet Take 1 tablet by mouth three times daily. 90 tablet 1 12/07/2021 Active Comment on above: Take 1 tablet by adali th three times daily. labetalol hydrochloride 5 mg/ml injectable solution (4 sources) beta-Adrenergic Guevara Start: 4 End: labetalol (Normodyne,Trandate) injection 10 mg losartan potassium 50 mg oral tablet (8 sources) Angiotensin 2 Receptor Guevara Start: 2 End: 5 take 1 tablet by mouth twice daily losartan (COZAAR) 50 mg tablet Take 1 tablet by mouth twice daily. 60 tablet 1 12/07/2021 04/10/2025 Discontinued (Discontinued by another Health Care Provider) Comment on above: Take 1 tablet by adali th twice daily. magnesium oxide 400 mg oral tablet (2 sources) Start: 5 take 1 tablet by mouth once daily Magnesium Oxide 400 mg (241.3 mg magnesium) tablet Discontinued 400 mg PO daily February 23, 2025 12:00am take 1 tablet by mouth twice anita ly magnesium oxide (MAG-OX) 400 mg (241.3 mg magnesium) tablet Take 400 mg by mouth two times a day. Active melatonin 3 mg oral capsule (1 source) Start: 02-23-2025 take 1 capsule by mouth at bedtime as needed Melatonin 3 mg capsule Discontinued 3 mg PO BEDTIME as needed February 23, 2025 12:00am niCARdipine (Cardene) infusion 20mg in 0.9 % sodium chloride 200mL (premix) (2 sources) Start: 02-11-2024 End: 02-12-2024 niCARdipine (Cardene) infusion 20mg in 0.9 % sodium chloride 200mL (premix) ondansetron ODT (Zofran-ODT) disintegrating tablet 4 mg (2 sources) Start: 02-11-2024 End: 02-16-2024 take 1 tablet by mouth every eight hours as needed for nausea and vomiting ondansetron ODT (Zofran-ODT) disintegrating tablet 4 mg patiromer 8400 mg powder for oral suspension (6 sources) Potassium Binder Start: 04-12-2022 End: 04-10-2025 take 1 dose by mouth once daily VELTASSA 8.4 gram pwpk MIX 1 PACKET IN WATER. DRINK BY MOUTH ONCE DAILY 04/12/2022 04/10/2025 Discontinued (Discontinued by another Health Care Provider) Comment on above: MIX 1 PACKET IN WATE R. DRINK BY MOUTH ONCE DAILY perflutren protein A microsphere (Optison) 3 mL in sodium chloride (PF) 0.9 % 10 mL IV syringe (2 sources) Start: 02-12-2024 End: 02-12-2024 perflutren protein A microsphere (Optison) 3 mL in sodium chloride (PF) 0.9 % 10 mL IV syringe polyethylene glycol 3350 85728 mg powder for oral solution (2 sources) Osmotic Laxative Start: 02-11-2024 End: 02-16-2024 take 17 g by mouth every twenty-four hours as needed for constipation polyethylene glycol (PEG) 3350 (Miralax) packet 17 g Potassium Chloride (1 source) POTASSIUM CHLORI DE 2.5 MEQ TAB prazosin 5 mg oral capsule (1 source) alpha-Adrenerg ic Guevara Start: 11-28-2021 take 1 capsule by mouth twice daily prazosin (MINIPRESS) 5 mg cap Indications: Localized edema Take 1 capsule by mouth twice daily. 180 capsule 3 11/28/2021 Active Comment on above: Take 1 capsule by [facility] twice daily. rosuvastatin calcium 10 mg oral tablet (10 sources) HMG-CoA Reductase Inhibitor End: 04-10-2025 take 1 tablet by mouth once daily rosuvastatin (CRESTOR) 10 mg tablet Take 10 mg by mouth once daily. 04/10/2025 Discontinued (Discontinued by another Health Care Provider) Comment on above: Take 10 mg by mouth once daily. sodium bicarbonate 650 mg oral tablet (6 sources) Start: 04-27-2022 End: 04-10-2025 sodium bicarbonate 650 mg tablet 04/27/2022 04/10/2025 Discontinued (Discontinued by another Health Care Provider) 5 ml sodium chloride 9 mg/ml injection (8 sources) Start: 02-11-2024 End: 02-16-2024 sodium chloride 0.9 % infusion Start: 02-11-2024 End: 02-16-2024 take 5-40 mL intravenously every twelve hours sodium chloride 0.9% (NS) flush 5-40 mL torsemide 20 mg oral tablet (8 sources) Loop Diuretic Start: 05-13-2022 End: 04-10-2025 take 1 tablet by mouth once daily torsemide (DEMADEX) 20 mg tablet Take 1 tablet by mouth once daily. 05/13/2022 04/10/2025 Discontinued (Discontinued by another Health Care Provider) Start: 12-07-2021 take 2 tablets by mo ut once daily torsemide (DEMADEX) 20 mg tablet Take 2 tablets by mouth once daily. 60 tablet 1 12/07/2021 Active Comment on above: Take 2 tablets by mo uth once daily. Take 1 tablet by adali once daily. Problems Active Problems Problem Classification Problem Date Documented Date Episodic/Chronic Acute cerebrovascular disease (8 sources) Ischemic stroke; Translations: [Cerebral infarction, unspecified] Onset: 4 02-12-2024 Chronic Chronic kidney disease (19 sources) Chronic kidney disease stage 4; Translations: [Chronic kidney disease, stage 4 (severe)] Onset: 2 05-12-2022 Chronic Congestive heart failure; nonhypertensive (1 source) Unspecified diastolic (congestive) heart failure; Translations: [Unspecified diastolic (congestive) heart failure] Onset: 5 Chronic Deficiency and other anemia (1 source) Anemia in chronic kidney disease; Translations: [Anemia in chronic kidney disease] Onset: 5 Chronic Deficiency and other anemia (1 source) Iron deficiency anemia, unspecified; Translations: [Iron deficiency anemia, unspecified] Onset: 5 Episodic Diabetes mellitus with complications (3 sources) Type 2 diabetes mellitus with diabetic chronic kidney disease; Translations: [Type 2 diabetes mellitus with other specified complication] Onset: 5 Chronic Diabetes mellitus without complication (8 sources) Diabetes mellitus; Translations: [Type 2 diabetes mellitus without complications] Onset: 2 11-24-2021 Chronic Disorders of lipid metabolism (2 sources) Hyperlipidemia; Translations: [Hyperlipidemia, unspecified] Onset: 5 04-10-2025 Chronic Essential hypertension (15 sources) Hypertensive disorder; Translations: [Essential (primary) hypertension] Onset: 2 11-24-2021 Chronic Fluid and electrolyte disorders (1 source) Hyperkalemia; Translations: [Hyperkalemia] Onset: 5 Episodic Hypertension with complications and secondary hypertension (4 sources) Renovascular hypertension; Translations: [Renovascular hypertension] Onset: 4 02-12-2024 Chronic Nutritional deficiencies (1 source) Vitamin D deficiency, unspecified; Translations: [Vitamin D deficiency, unspecified] Onset: 5 Chronic Other aftercare (1 source) Post-discharge follow-up; Translations: [Encounter for follow-up examination after completed treatment for conditions other than malignant neoplasm] Episodic Other diseases of kidney and ureters (1 source) Secondary hyperparathyroidism; Translations: [Secondary hyperparathyroidism of renal origin] 01-20-2025 Chronic Other endocrine disorders (1 source) Secondary hyperparathyroidism, not elsewhere classified; Translations: [Secondary hyperparathyroidism, not elsewhere classified] Onset: 5 Chronic Other eye disorders (1 source) Central corneal opacity, right eye; Translations: [Central corneal opacity, right eye] Onset: 4 Episodic Other hereditary and degenerative nervous system conditions (1 source) Restless legs syndrome; Translations: [Restless legs syndrome] Onset: 5 Chronic Other nutritional; endocrine; and metabolic disorders (2 sources) Severe obesity; Translations: [Class 3 severe obesity due to excess calories with serious comorbidity and body mass index (BMI) of 40.0 to 44.9 in adult ([facility])] Onset: 5 04-10-2025 Chronic Other nutritional; endocrine; and metabolic disorders (1 source) Body mass index (BMI) 40.0-44.9, adult; Translations: [Class 3 severe obesity due to excess calories with serious comorbidity and body mass index (BMI) of 40.0 to 44.9 in adult ([facility])] Onset: 5 Chronic Other nutritional; endocrine; and metabolic disorders (1 source) H/O: diabetes mellitus; Translations: [Personal history of other endocrine, nutritional and metabolic disease] Episodic Other nutritional; endocrine; and metabolic disorders (2 sources) Hyperuricemia without signs of inflammatory arthritis and tophaceous disease; Translations: [Hyperuricemia without signs of inflammatory arthritis and tophaceous disease] Onset: 5 Episodic Peripheral and visceral atherosclerosis (9 sources) Renal artery stenosis; Translations: [Atherosclerosis of renal artery] Onset: 2 05-04-2022 Chronic Residual codes; unclassified (9 sources) Obstructive sleep apnea syndrome; Translations: [Obstructive sleep apnea (adult) (pediatric)] Onset: 2 11-24-2021 Chronic Residual codes; unclassified (11 sources) Past history of procedure; Translations: [Personal history of other medical treatment] Onset: 2 12-07-2021 Episodic Residual codes; unclassified (1 source) Never smoked tobacco; Translations: [Other specified health status] Episodic Residual codes; unclassified (2 sources) Localized edema; Translations: [Localized edema] Onset: 4 Episodic Residual codes; unclassified (1 source) Non-smoker; Translations: [Other specified health status] Episodic Residual codes; unclassified (2 sources) Edema of left upper limb; Translations: [Localized edema] 02-12-2024 Episodic Residual codes; unclassified (1 source) Localized edema; Translations: [Localized edema] Onset: 4 Episodic Syncope (8 sources) Near syncope; Translations: [Syncope and collapse] Onset: 4 02-16-2024 Episodic Unclassified (1 source) Class 3 severe obesity due to excess calories with serious comorbidity and body mass index (BMI) of 40.0 to 44.9 in adult ([facility]); Translations: [Class 3 severe obesity due to excess calories with serious comorbidity and body mass index (BMI) of 40.0 to 44.9 in adult ([facility])] Onset: 5 Past or Other Problems Problem Classification Problem Date Documented Da te Episodic/Chronic Acute and unspecified renal failure (5 sources) [id number] renal failure; Translations: [Acute kidney failure, unspecified] Onset: 11-24-2021 Resolved: 07-08-2022 01-20-2022 Episodic Aortic; peripheral; and visceral artery aneurysms (4 sources) Femoral false aneurysm; 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] Onset: 05-06-2022 Resolved: 05-12-2022 Chronic Genitourinary symptoms and ill-defined conditions (1 source) Other difficulties with micturition; Translations: [Other difficulties with micturition] Onset: 2024 Episodic Other nervous system disorders (3 sources) Metabolic encephalopathy; Translations: [Metabolic encephalopathy] Onset: 05-08-2022 Resolved: 05-12-2022 05-12-2022 Chronic Other nervous system disorders (1 source) Tremor, unspecified; Translations: [Tremor, unspecified] Onset: 11-19-2024 Episodic Residual codes; unclassified (7 sources) Edema; Translations: [Edema, unspecified] Onset: 11-24-2021 11-24-2021 Episodic Residual codes; unclassified (9 sources) Bilateral lower limb edema; Translations: [Localized edema] Onset: 12-07-2021 12-07-2021 Episodic Results Test Name Value Interpretation Reference Range Facility FERRITIN [CCL]on 04-23-2025 Ferritin [Mass/Vol] 61.1 ng/mL Normal 14.7-205.1 [facility] Comment on above: Result Comment: [facility] [id number] [place], [place] [address]BdzdvjJose A Black III, M.D.[id number] Performed By: #### 2 66457 ####[facility],[address] [place] [address] CBC + DIFFon 04-22-2025 Baso # 0.04 x10EE3/UL Normal 0.00 - 0.10 [facility] Comment on above: Performed By: #### 2 81673 ####[address] [address] Basophils/100 WBC (Bld) 0.6 % Normal 0.0 - 2.0 [facility] Comment on above: Performed By: #### 2 76973 ####[facility],[address] [place] [address] CBC + DIFF Normal [facility] Comment on above: Result Comment: CBC- COMPLETE BLOOD COUNT Performed By: #### 2 36933 ####[facility],[address] [place] [address] EO # 0.03 x10EE3/UL Normal 0.00 - 0.50 [facility] Comment on above: Performed By: #### 2 34267 ####[facility],[address] [place] [address] Eosinophils/100 WBC (Bld) 0.5 % Normal 0.0 - 7.0 [facility] Comment on above: Performed By: #### 2 53112 ####[facility],[address] [place] [address] Erythrocyte distribution width (RBC) [Ratio] 14.5 % Normal 12.0 - 15.6 [facility] Comment on above: Performed By: #### 2 85492 ####[facility],[address] [place] [address] Hematocrit (Bld) [Volume fraction] 32.5 % Low 34.0 - 46.0 [facility] Comment on above: Performed By: #### 2 77592 ####[facility],[address] [place], [place] [id number] Hemoglobin (Bld) [Mass/Vol] 11.2 g/dL Low 12.0 - 16.0 [facility] Comment on above: Performed By: #### 2 66756 ####[facility],[address] [place], [place] [address] Lymph # 1.36 x10EE3/UL Normal 0.80 - 2.80 [facility] Comment on above: Performed By: #### 2 79464 ####[facility],[address] [place], [place] [id number] Lymphocytes/100 WBC (Bld) 21.7 % Normal 20.0 - 45.0 [facility] Comment on above: Performed By: #### 2 42973 ####[facility],[address] [place] [address] MANUAL DIFF N/A Normal [facility] Comment on above: Performed By: #### 2 11127 ####[facility],[address] [place] [address] MCH (RBC) [Entitic mass] 31 pg Normal 27 - 33 [facility] Comment on above: Performed By: #### 2 37507 ####[facility],[address] [place] [address] MCHC 34 X10 3 Normal 32 - 36 [facility] Comment on above: Performed By: #### 2 54429 ####[facility],[address] [place] [address] MCV (RBC) [Entitic vol] 91 fL Normal 80 - 99 [facility] Comment on above: Performed By: #### 2 91030 ####[facility],[address] [place] [address] [place] # 0.61 x10EE3/UL Normal 0.20 - 1.00 [facility] Comment on above: Performed By: #### 2 99858 ####[facility],[address] [place] [address] MONOS % 9.8 % Normal 0.0 - 10.0 [facility] Comment on above: Performed By: #### 2 40137 ####[facility],[address] [place] [address] Morphology Souleymane (Bld) [Interp] N/A Normal [facility] Comment on above: Performed By: #### 2 97344 ####[facility],[address] [place] [address] Neut # 4.22 x10EE3/UL Normal 1.50 - 7.10 [facility] Comment on above: Performed By: #### 2 58634 ####[facility],[address],[place] [address] Neutrophils/100 WBC (Bld) 67.4 % Normal 46.0 - 76.0 [facility] Comment on above: Performed By: #### 2 96559 ####[facility],[address] [place] [address] PLATELET 135 x10EE3/UL Low 150 - 450 [facility] Comment on above: Performed By: #### 2 98403 ####[facility],[address] [place] [address] 94148 Platelet mean volume (Bld) [Entitic vol] 9.9 fL Normal 6.6 - 10.5 [facility] Comment on above: Result Comment: AUTO MATED DIFFERENTIAL Performed By: #### 2 05514 ####[facility],[address] [place] [address] 81394 RBC 3.58 x 10EE6/UL Low 4.10 - 5.30 [facility] Comment on above: Performed By: #### 2 78885 ####[facility],[address] [place] [address]60 WBC 6.3 x 10EE3/UL Normal 4.5 - 10.8 [facility] Comment on above: Performed By: #### 2 21575 ####[facility],[address] [place] [address] 24057 Ferritin SerPl-mCncon 2024 Ferritin [Mass/Vol] 61.1 ng/mL Normal 14.7-205.1 [facility] Comment on above: Order Comment: Speci men Type: BLOOD SPECIMEN Ordering Facility: [facility] Address: [address] [place] [address] Performed By: #### 2 276-4 #### [facility] CLIA [id number] [address] [place] [address] [place] IRON AND TIBCon 04-22-2025 %SATURATION 36 % Normal [facility] Comment on above: Performed By: #### 2 20703 ####[facility],[address] [place] [address] Iron [Mass/Vol] 109 ug/dL Normal 50 - 170 [facility] Comment on above: Performed By: #### 2 84733 ####[facility],[address] [place] [address] 54642 TIBC 305 ug/dl Normal 250 - 450 [facility] Comment on above: Performed By: #### 2 39592 ####[facility],[address] [place] [address] 05207 UIBC 196 ug/dL Normal 155 - 355 [facility] Comment on above: Performed By: #### 2 94899 ####[facility],[address] [place] [address] 36971 RENAL FUNCTION PANELon 04-22 Albumin [Mass/Vol] 3.6 g/dL Normal 3.4 - 5.0 [facility] Comment on above: Performed By: #### 2 56030 ####[facility],[address] [place] [address] 41100 B/C RATIO 19 ratio Normal 0 - 30 [facility] Comment on above: Performed By: #### 2 42574 ####[facility],[address] [place] [address] Calcium [Mass/Vol] 12.6 mg/dL High 8.5 - 10.1 [facility] Comment on above: Performed By: #### 2 85245 ####[facility],[address] [place] [address]459 Chloride [Moles/Vol] 98 mmol/L Normal 98 - 107 [facility] Comment on above: Performed By: #### 2 61218 ####[facility],[address] [place] [address] 33265 CO2 [Moles/Vol] 27.3 mmol/L Normal 21.0 - 32.0 [facility] Comment on above: Performed By: #### 2 86085 ####[facility],[address] [place] [address] 20061 Creatinine [Mass/Vol] 3.24 mg/dL High 0.55 - 1.02 [facility] Comment on above: Performed By: #### 2 50399 ####[facility],[address] [place] [address]4410 Glucose [Mass/Vol] 123 mg/dL High 74 - 106 [facility] Comment on above: Performed By: #### 2 33026 ####[facility],[address] [place] [address] 61355 Phosphate [Mass/Vol] 4.8 mg/dL High 2.6 - 4.7 [facility] Comment on above: Performed By: #### 2 78694 ####[facility],[address] [place] [address] 19412 Potassium [Moles/Vol] 4.6 mmol/L Normal 3.5 - 5.1 [facility] Comment on above: Performed By: #### 2 71591 ####[facility],[address] [place] [address] 02828 RENAL FUNCTION PANEL Normal [facility] Comment on above: Result Comment: SUSAN L FUNCTION PANEL Performed By: #### 2 45235 ####[facility],[address] [place] [address] 34720 Sodium [Moles/Vol] 135 mmol/L Low 136 - 145 [facility] Comment on above: Performed By: #### 2 59893 ####[facility],[address] [place] [address] 55198 Urea nitrogen [Mass/Vol] 61 mg/dL High 7 - 18 [facility] Comment on above: Performed By: #### 2 97739 ####[facility],[address] [place] [address] MR/Enrico 04-20-2025 MR/[facility] Medical Records Department [address] [place] [address] [place] [address] PAT - Anesthesia 04/20/251933 MR#: [id number] Acct: [id number] Name: LUCHO BROWNE Rep #: [id number] : 1940 84 From: Praful Augustin MD PCP: Dr. Avelino Deleon MD Status:PRE SDC Y Race: C Location: 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 When Was Last Pacemaker Check QUESTION #4 FULL TEXT: You/Your Family Experience fever (hyperthermia) with Anesthesia Last Oral Intake Last Oral intake: Last Oral Intake NPO since Meds taken in AM with sips of water? 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 Has anyone observed you stop No 04/03/25 15:27 breathing during sleep? STOP Results Negative 04/03/25 15:27 QUESTION #5 FULL TEXT : Do you snore loudly (louder than talking or can be heard through closed doors)? 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 Specify any problems Hx of Preganancy in last 3 No 04/03/25 15:27 Months Nurse Filling Out Transfusion VCHRISTIN 04/03/25 15:27 Questions: Date: 04/03/25 04/03/25 15:27 Time: 15:04/03/25 15:27 Patient unable to answer at this time (ie. 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 cable equipment technician: /Reproductive Hx- submarine cable equipment technician Hx Now No 04/03/25 15:27 Gestational Age (in weeks): EDC: Hx Hx Para Hx Section SAB No 04/03/25 15:27 PFSH Medical History Wears dentures Wears glasses Post-menopausal Depression Diabetes Walker as ambulation aid Arthritis History of renal disease Tremor Stroke/cerebrovascular accident Non-smoker BiPAP (biphasic positive airway pressure) dependence Sleep apnea Shortness of breath on exertion History of pain when walking History of edema History of echocardiogram Cardiology follow-up encounter Anemia in chronic kidney disease Secondary hyperparathyroidism Essential hypertension CKD (chronic kidney disease), stage IV Home Medications ???Medication ???Instructions ???Recorded ???Last Taken ???Type acetaminophen 325 mg capsule 325 mg PO PRN pain 02/23/25 Unknow n History allopurinol 100 mg tablet 50 mg PO DAILY 02/23/25 Unknown Hi story amlodipine 10 mg tablet 10 mg PO QDAY 02/23/25 Unknown His tory aspirin 81 mg tablet,delayed 81 mg PO QDAY 02/23/25 Unknown His tory release atorvastatin 40 mg tablet 40 mg PO QDAY 02/23/25 Unknown His tory (more content not included)... Normal [facility] CNOVon 04-10-2025 CNOV Office Visit (CAUNDO ) LUCHO BROWNE ([id number]) 1940 F Date Time Provider Department 04/10/25 8:20 AM HAMZAH KILPATRICK During your visit today, we recorded the following information about you: Pulse Respiration Blood pressure Weight 66/minute 16/minute 132/60 107.2 kg Height 1.607 m Hamzah Kilpatrick APRN.ECONOMIC DEVELOPMENT DIRECTOR 04/10/2025 10:12 AM Signed Date: April 10, 2025 Chief Complaint: Upcoming fistula creation HISTORY OF PRESENT ILLNESS: Lucho Browne is a 84 year old female who presents to discuss cardiac clearance for right arm fistula creation surgery. Patient that she is scheduled for right arm fistula creation for dialysis in 4 days on 04/14/2025 with Vascular Surgeon Dr. Jose C Ashraf. 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 Patient underwent echocardiogram in 2020 which showed normal systolic function. Patient denies chest pain, palpitations, dyspnea, lightheadedness, or edema. Patient is clear from a cardiac standpoint for surgery. Revised Cardiac Risk Index: zero (4% risk of cardiac event). ALLERGIES No Known Allergies PAST MEDICAL HISTORY: PAST MEDICAL HISTORY Diagnosis Date Edema ESRD on dialysis ([facility]) [employer] Dr. 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 Normal systolic function. Moderate concentric LVH. Mild TR. History of stent insertion of renal artery 05/04/2022 Right renal artery stent. Vascular Surgeon Dr. Jerome Hanna. Hypertension Obstructive sleep apnea treated with bilevel positive airway pressure (BiPAP) PAST SURGICAL HISTORY Procedure Laterality Date HYSTERECTOMY N/A 1989 REMOVAL GALLBLADDER N/A 2011 History reviewed. No pertinent family history. SOCIAL HISTORY: Tobacco Use: Never Alcohol Use: Not Currently Drug Use: Not Currently Employer And Job Title: None on file Years Of Education Completed: Not specified Marital Status: MEDICATIONS: Current Outpatient Medications Medication Sig hydrALAZINE (APRESOLINE) 25 mg tablet Take 25 mg by mouth three times a day as needed. (Patient taking differently: Take 25 mg by mouth three times a day.) furosemide (LASIX) 40 mg tablet Take 40 mg by mouth two times a day. cloNIDine HCl (CATAPRES) 0.2 mg tablet Take 0.2 mg by mouth three times a day. Cholecalciferol, Vitamin D3, 25 mcg (1,000 unit) cap Take 1,000 Units by mouth once daily. spironolactone (ALDACTONE) 100 mg tablet Take 100 mg by mouth once daily. calcitriol (ROCALTROL) 0.5 mcg capsule Take 0.5 mcg by mouth once daily. aspirin, enteric coated (ASPIRIN, ENTERIC COATED) 81 mg EC tablet Take 81 mg by mouth once daily. amLODIPine (NORVASC) 10 mg tablet Take 10 mg by mouth once daily. allopurinol (ZYLOPRIM) 100 mg tablet Take 50 mg by mouth once daily. magnesium oxide (MAG-OX) 400 mg (241.3 mg magnesium) tablet Take 400 mg by mouth two times a day. metOLazone (ZAROXOLYN) 5 mg tablet Take 5 mg by mouth two times a day. rOPINIRole (REQUIP) 0.5 mg tablet Take 0.5 mg by mouth every evening. atorvastatin (LIPITOR) 40 mg tablet Take 40 mg by mouth daily at bedtime. acetaminophen 650 mg CR tablet Take 650 mg by mouth every 4 hours as needed. busPIRone (BUSPAR) 10 mg tablet Take 10 mg by mouth twice daily. No current facility-administered medications for this visit. I have personally reviewed the patients past medical history including social, family, surgical, diagnostics, and medications. REVIEW OF SYSTEMS: Review of Systems Constitutional: Negative for chills and fatigue. Respiratory: Negative for chest tightness and shortness of breath. Cardiovascular: Positive for leg swelling (chronic). Negative for chest pain and palpitations. Gastrointestinal: Negative. Musculoskeletal: Gait problem: ambulates with walker. Skin: Negative. Neurological: Negative for dizziness, syncope, weakness, light-headedness, numbness and headaches. Hematological: Does not bruise/bleed easily. Psychiatric/Behavioral: Negative for confusion and hallucinations. PHYSICAL EXAMINATION: BP 132/60 (BP Site: Left Arm, BP Position: Sitting) Pulse 66 Resp 16 Ht 160.7 cm (5' 3.25) Wt 107.2 kg (236 lb 5.3 oz) SpO2 97% BMI 41.53 kg/m? Last 3 Encounter BP Readings: Date: BP: 01/01/2023 132/60 07/12/2022 142/56 05/05/2022 116/40 Last 3 Encounter Pulse Readings: Date: Pulse: 01/01/2023 64 07/12/2022 57 05/05/2022 88 Last 3 Encounter Wt Readings: Date: Wt: 01/01/2023 101.2 kg (223 lb) 07/12/2022 93 kg (205 lb) 05/05/2022 104.6 kg (230 lb 11.2 oz) Physical Exam LABS: Glucose (mg/dL) Date Value 05/12/2022 196 12/14/2021 115 Potassium (mmol/L) Date Value 05/12/2022 4.1 12/14/2021 4.0 Sodium (mmol/L) Date Value 05/12/2022 139 12/14/2021 142 Chloride (mmol/L) Date Value 05/12/2022 109 12/14/2021 104 CO2 (mmol/L (more content not included)... Normal [facility] ECG COMPLETEon 04-10-2025 ECG COMPLETE Ventricular Rate : 6 5 BPM Atrial Rate : 65 BPM P-R Interval : 172 ms QRS Duration : 94 ms Q-T Interval : 424 ms QTC Calculation(Bazett) : 440 ms Calculated P [place] : 42 degrees Calculated R [place] : -5 degrees Calculated T [place] : 14 degrees Normal sinus rhythm Moderate voltage criteria for LVH, may be normal variant Borderline ECG No previous ECGs available Confirmed by BENJAMIN RUDD DO ([id number]) on 04/19/2025 6:33:25 PM NAME : LUCHO BROWNE PID : [id number] : 1940 Gender : Female Race : ORD : [id number] Procedure Date : Apr 10 2025 08:46:18 Edit Date : Apr 19 2025 18:33:26 Diagnosis: Normal sinus rhythm Moderate voltage criteria for LVH, may be normal variant Borderline ECG No previous ECGs available Confirmed by BENJAMIN RUDD DO ([id number]) on 04/19/2025 6:33:25 PM Test Reason : HCS Location : 2 : [place] Overread By : BENJAMIN RUDD DO Edited By : BENJAMIN RUDD DO Referred By : , Acquired by : , [facility] PTH, INTACT [CCL]on 04-09-20 25 PTH, Intact 40 pg/mL Normal 15-65 [facility] Comment on above: Result Comment: [facility] [place], [place] [address]Ogwflt Sofia NELSON M.D.[id number] Performed By: #### 2 49599 ####[address] [address] BMP with eGFRon 04-08-2025 AGE 84 years Normal [facility] Comment on above: Performed By: #### 2 44698 ####[address] [address] Anion gap [Moles/Vol] 14 mmol/L Normal 10 - 20 [facility] Comment on above: Performed By: #### 2 97425 ####[address] [address] BMP with eGFR Normal [facility] Comment on above: Result Comment: BASI C METABOLIC PANEL Performed By: #### 2 91253 ####[address] [address] Calcium [Mass/Vol] 12.3 mg/dL High 8.5 - 10.1 [facility] Comment on above: Performed By: #### 2 25994 ####[facility],[address] [place] [address] Chloride [Moles/Vol] 104 mmol/L Normal 98 - 107 [facility] Comment on above: Performed By: #### 2 66933 ####[facility],[address] [place] [address] CO2 [Moles/Vol] 28.0 mmol/L Normal 21.0 - 32.0 [facility] Comment on above: Performed By: #### 2 29810 ####[facility],[address] [place] [address] Creatinine [Mass/Vol] 3.36 mg/dL High 0.55 - 1.02 [facility] Comment on above: Performed By: #### 2 31690 ####[facility],[address] [place] [address]268 eGFR 13 ML/MINUTE Low 60 - 999 [facility] Comment on above: Performed By: #### 2 33801 ####[facility],[address] [place] [address] eGFR(AA) 16 ML/MINUTE Low 60 - 999 [facility] Comment on above: Result Comment: ACCO RDING TO THE NATIONAL KIDNEY DISEASE EDUCATION PROGRAM(NKDE), A NORMAL eGFRIS A VALUE GREATER THAN OR EQUAL TO 60 ML/MIN/1.73 SQ METERS.CHRONIC KIDNEY DISEASE: <60mL/MIN/1.73 SQ METERSKIDNEY FAILURE: <15mL/MIN/1.73 SQ METERSTHIS TEST SHOULD ONLY BE USED FOR PATIENTS 18 YEARS OF AGE AND OLDER. Performed By: #### 2 83788 ####[facility],[address] [place] [address] Glucose [Mass/Vol] 126 mg/dL High 74 - 106 [facility] Comment on above: Performed By: #### 2 09641 ####[facility],[address] [place] [address] Potassium [Moles/Vol] 4.4 mmol/L Normal 3.5 - 5.1 [facility] Comment on above: Performed By: #### 2 51821 ####[facility],[address] [place] [address] Sodium [Moles/Vol] 142 mmol/L Normal 136 - 145 [facility] Comment on above: Performed By: #### 2 65586 ####[facility],[address] [place] [address] Urea nitrogen [Mass/Vol] 69 mg/dL High 7 - 18 [facility] Comment on above: Performed By: #### 2 78684 ####[facility],[address] [place] [address] CBC + DIFFon 04-08-2025 Baso # 0.03 x10EE3/UL Normal 0.00 - 0.10 [facility] Comment on above: Performed By: #### 2 97960 ####[facility],[address] [place] [address] Basophils/100 WBC (Bld) 0.5 % Normal 0.0 - 2.0 [facility] Comment on above: Performed By: #### 2 99988 ####[facility],[address] [place] [address] CBC + DIFF Normal [facility] Comment on above: Result Comment: CBC- COMPLETE BLOOD COUNT Performed By: #### 2 47130 ####[facility],[address] [place] [address] EO # 0.03 x10EE3/UL Normal 0.00 - 0.50 [facility] Comment on above: Performed By: #### 2 86945 ####[facility],[address] [place] [address] Eosinophils/100 WBC (Bld) 0.6 % Normal 0.0 - 7.0 [facility] Comment on above: Performed By: #### 2 56230 ####[facility],[address] [place] [address] Erythrocyte distribution width (RBC) [Ratio] 15.5 % Normal 12.0 - 15.6 [facility] Comment on above: Performed By: #### 2 01484 ####[facility],[address] [place] [address] Hematocrit (Bld) [Volume fraction] 28.7 % Low 34.0 - 46.0 [facility] Comment on above: Performed By: #### 2 18393 ####[facility],[address] [place] [address] Hemoglobin (Bld) [Mass/Vol] 9.7 g/dL Low 12.0 - 16.0 [facility] Comment on above: Performed By: #### 2 29648 ####[facility],[address] [place] [address] Lymph # 1.36 x10EE3/UL Normal 0.80 - 2.80 [facility] Comment on above: Performed By: #### 2 39655 ####[facility],[address] [place] [address] Lymphocytes/100 WBC (Bld) 24.3 % Normal 20.0 - 45.0 [facility] Comment on above: Performed By: #### 2 71272 ####[facility],[address] [place], [place] [id number] MANUAL DIFF N/A Normal [facility] Comment on above: Performed By: #### 2 43742 ####[facility],[address] [place], [place] [address] MCH (RBC) [Entitic mass] 30 pg Normal 27 - 33 [facility] Comment on above: Performed By: #### 2 02298 ####[place] [id number] MCHC 34 X10 3 Normal 32 - 36 [facility] Comment on above: Performed By: #### 2 93563 ####[place] [id number] MCV (RBC) [Entitic vol] 90 fL Normal 80 - 99 [facility] Comment on above: Performed By: #### 2 60874 ####[facility],[address] [place] [address] [place] # 0.54 x10EE3/UL Normal 0.20 - 1.00 [facility] Comment on above: Performed By: #### 2 72112 ####[facility],[address] [place] [address] MONOS % 9.6 % Normal 0.0 - 10.0 [facility] Comment on above: Performed By: #### 2 57637 ####[facility],[address] [place] [address] Morphology Souleymane (Bld) [Interp] N/A Normal [facility] Comment on above: Performed By: #### 2 10515 ####[facility],[address] [place] [address] Neut # 3.63 x10EE3/UL Normal 1.50 - 7.10 [facility] Comment on above: Performed By: #### 2 08135 ####[facility],[address] [place] [address] Neutrophils/100 WBC (Bld) 65.0 % Normal 46.0 - 76.0 [facility] Comment on above: Performed By: #### 2 10168 ####[facility],[address] [place] [address] PLATELET 120 x10EE3/UL Low 150 - 450 [facility] Comment on above: Performed By: #### 2 92315 ####[facility],[address] [place] [address] Platelet mean volume (Bld) [Entitic vol] 9.3 fL Normal 6.6 - 10.5 [facility] Comment on above: Result Comment: AUTO MATED DIFFERENTIAL Performed By: #### 2 14902 ####[facility],[address],[place] [address] RBC 3.19 x 10EE6/UL Low 4.10 - 5.30 [facility] Comment on above: Performed By: #### 2 58633 ####[facility],[address] [place] [address] WBC 5.6 x 10EE3/UL Normal 4.5 - 10.8 [facility] Comment on above: Performed By: #### 2 24671 ####[facility],[address] [place] [address] PTH-Intact SerPl-mCncon - Parathyrin.intact [Mass/Vol] 40 pg/mL Normal 15-65 [facility] Comment on above: Order Comment: Speci men Type: BLOOD SPECIMEN Ordering Facility: [facility] Address: [address] [place], [place] [id number] Performed By: #### 2 731-8 #### [facility] CLIA [id number] [address] [place] [address] [place] URIC ACIDon 04-08-2025 Urate [Mass/Vol] 8.2 mg/dL High 2.6 - 6.0 [facility] Comment on above: Performed By: #### 2 17668 ####[facility],[address] [place] [address] VITAMIN D, 25 HYDROXYon VitD 37.60 ng/mL Normal 30.00 - 100 [facility] Comment on above: Result Comment: 25-O HD3 indicates both endogenous production and supplementation. 25-OHD2 is anindicator of exogenous sources, such as diet or supplementation. Therapy isbased on measurement of Total 25-OHD, with levels <20 ng/mL indicative ofVitamin D deficiency, while levels between 20 ng/mL and 30 ng/mL suggestinsufficiency. Optimal levels are >=30ng/mL.Vitamin D, 25-OH D3 Not EstablishedVitamin D, 25-OH D2 Not Established Performed By: #### 2 93557 ####[facility],[address] [place] [address] BMP with eGFRon 04-06-2025 AGE 84 years Normal [facility] Comment on above: Performed By: #### 2 47869 ####[facility],[address] [place] [address] Anion gap [Moles/Vol] 12 mmol/L Normal 10 - 20 [facility] Comment on above: Performed By: #### 2 30501 ####[facility],[address] [place] [address] BMP with eGFR Normal [facility] Comment on above: Result Comment: BASI C METABOLIC PANEL Performed By: #### 2 13147 ####[facility],[address] [place] [address] Calcium [Mass/Vol] 12.4 mg/dL High 8.5 - 10.1 [facility] Comment on above: Performed By: #### 2 65390 ####[facility],[address] [place], [place] [address] Chloride [Moles/Vol] 101 mmol/L Normal 98 - 107 [facility] Comment on above: Performed By: #### 2 11759 ####[facility],[address] [place] [address] CO2 [Moles/Vol] 27.6 mmol/L Normal 21.0 - 32.0 [facility] Comment on above: Performed By: #### 2 40223 ####[facility],[address] [place] [address] Creatinine [Mass/Vol] 3.47 mg/dL High 0.55 - 1.02 [facility] Comment on above: Performed By: #### 2 81321 ####[facility],[address] [place] [address]756 eGFR 13 ML/MINUTE Low 60 - 999 [facility] Comment on above: Performed By: #### 2 61485 ####[facility],[address] [place] [address] eGFR(AA) 15 ML/MINUTE Low 60 - 999 [facility] Comment on above: Result Comment: ACCO RDING TO THE NATIONAL KIDNEY DISEASE EDUCATION PROGRAM(NKDE), A NORMAL eGFRIS A VALUE GREATER THAN OR EQUAL TO 60 ML/MIN/1.73 SQ METERS.CHRONIC KIDNEY DISEASE: <60mL/MIN/1.73 SQ METERSKIDNEY FAILURE: <15mL/MIN/1.73 SQ METERSTHIS TEST SHOULD ONLY BE USED FOR PATIENTS 18 YEARS OF AGE AND OLDER. Performed By: #### 2 50056 ####[facility],[address] [place] [address] Glucose [Mass/Vol] 133 mg/dL High 74 - 106 [facility] Comment on above: Performed By: #### 2 87915 ####[address] [address] Potassium [Moles/Vol] 4.4 mmol/L Normal 3.5 - 5.1 [facility] Comment on above: Performed By: #### 2 52081 ####[facility],[address] [place] [address] Sodium [Moles/Vol] 136 mmol/L Normal 136 - 145 [facility] Comment on above: Performed By: #### 2 79491 ####[facility],[address] [place] [address] Urea nitrogen [Mass/Vol] 67 mg/dL High 7 - 18 [facility] Comment on above: Performed By: #### 2 03417 ####[facility],[address] [place] [address] CBC + DIFFon 04-06-2025 Baso # 0.04 x10EE3/UL Normal 0.00 - 0.10 [facility] Comment on above: Performed By: #### 2 46702 ####[address] [address] Basophils/100 WBC (Bld) 0.6 % Normal 0.0 - 2.0 [facility] Comment on above: Performed By: #### 2 45150 ####[place] [address] CBC + DIFF Normal [facility] Comment on above: Result Comment: CBC- COMPLETE BLOOD COUNT Performed By: #### 2 19126 ####[place] [address] EO # 0.02 x10EE3/UL Normal 0.00 - 0.50 [facility] Comment on above: Performed By: #### 2 50814 ####[place] [address] Eosinophils/100 WBC (Bld) 0.3 % Normal 0.0 - 7.0 [facility] Comment on above: Performed By: #### 2 44343 ####[place] [address] Erythrocyte distribution width (RBC) [Ratio] 15.5 % Normal 12.0 - 15.6 [facility] Comment on above: Performed By: #### 2 82833 ####[place] [address] Hematocrit (Bld) [Volume fraction] 30.2 % Low 34.0 - 46.0 [facility] Comment on above: Performed By: #### 2 83774 ####[facility],[address] [place] [address] Hemoglobin (Bld) [Mass/Vol] 10.2 g/dL Low 12.0 - 16.0 [facility] Comment on above: Performed By: #### 2 40180 ####[place] [address] Lymph # 1.66 x10EE3/UL Normal 0.80 - 2.80 [facility] Comment on above: Performed By: #### 2 74120 ####[address],[place] [address] Lymphocytes/100 WBC (Bld) 26.3 % Normal 20.0 - 45.0 [facility] Comment on above: Performed By: #### 2 71737 ####[facility],[address] [place] [address] MANUAL DIFF N/A Normal [facility] Comment on above: Performed By: #### 2 23251 ####[facility],[address] [place] [address] MCH (RBC) [Entitic mass] 31 pg Normal 27 - 33 [facility] Comment on above: Performed By: #### 2 50159 ####[facility],[address] [place] [address] MCHC 34 X10 3 Normal 32 - 36 [facility] Comment on above: Performed By: #### 2 27180 ####[facility],[address] [place] [address] MCV (RBC) [Entitic vol] 91 fL Normal 80 - 99 [facility] Comment on above: Performed By: #### 2 26425 ####[facility],[address] [place] [address] [place] # 0.63 x10EE3/UL Normal 0.20 - 1.00 [facility] Comment on above: Performed By: #### 2 60939 ####[facility],[address] [place] [address] MONOS % 9.9 % Normal 0.0 - 10.0 [facility] Comment on above: Performed By: #### 2 18731 ####[place] [address] Morphology Souleymane (Bld) [Interp] N/A Normal [facility] Comment on above: Performed By: #### 2 27273 ####[facility],[address],[place] [address] Neut # 3.97 x10EE3/UL Normal 1.50 - 7.10 [facility] Comment on above: Performed By: #### 2 77895 ####[facility],[address] [place] [address] Neutrophils/100 WBC (Bld) 62.9 % Normal 46.0 - 76.0 [facility] Comment on above: Performed By: #### 2 49182 ####[facility],[address] [place] [address] PLATELET 140 x10EE3/UL Low 150 - 450 [facility] Comment on above: Performed By: #### 2 15970 ####[facility],[address] [place] [address] Platelet mean volume (Bld) [Entitic vol] 9.0 fL Normal 6.6 - 10.5 [facility] Comment on above: Result Comment: AUTO MATED DIFFERENTIAL Performed By: #### 2 82215 ####[facility],[address] [place], [place] [id number] RBC 3.32 x 10EE6/UL Low 4.10 - 5.30 [facility] Comment on above: Performed By: #### 2 14473 ####[facility],[address] [place], [place] [id number] WBC 6.3 x 10EE3/UL Normal 4.5 - 10.8 [facility] Comment on above: Performed By: #### 2 46259 ####[facility],[address] [place], [place] [id number] CNPJennifer 04-06-2025 DOMINIQUEN Telephone (AMBER) LUCHO BROWNE ([id number]) 1940 F Date Time Provider Department 04/06/25 BENJAMIN RUDD During your visit today, we recorded the following information about you: Izzy Brian RN 04/06/2025 2:27 PM Signed Left message for patient's daughter Marixa, to return call. Received cardiac clearance from [facility] for a procedure on 04/14/25. Patient has not been seen in our office since 12/2022 and will need to be seen before getting cleared. Izzy Brian RN 04/07/2025 8:45 AM Signed Message left for Marixa to return call to schedule appointment for patient. Izzy Brian RN 04/08/2025 10:07 AM Signed Patient scheduled to see Hamzah Kilpatrick 04/10/25 Allergies As of Date: 04/06/2025 (No Known Allergies) Date Reviewed: 01/01/2023 Reviewed by: Fide Crouch MA - Fully Assessed Reason for Visit: Appointment [186] Prescriptions as of 04/08/2025 - acetaminophen 650 mg CR tablet Take 650 mg by mouth every 4 hours as needed. - doxazosin (CARDURA) 4 mg tablet Take 1 tablet by mouth twice daily. - spironolactone (ALDACTONE) 25 mg tablet Take 1 tablet by mouth every 48 hours. - torsemide (DEMADEX) 20 mg tablet Take 1 tablet by mouth once daily. - cloNIDine HCl (CATAPRES) 0.1 mg tablet Take 1 tablet by mouth every 8 hours as needed (For systolic > 180mmHG). - chlorthalidone (HYGROTON) 25 mg tablet Take 25 mg by mouth every 48 hours. - VELTASSA 8.4 gram pwpk MIX 1 PACKET IN WATER. DRINK BY MOUTH ONCE DAILY - sodium bicarbonate 650 mg tablet - aspirin 325 mg tablet Take 325 mg by mouth once daily. - carvedilol (COREG) 12.5 mg tablet Take 12.5 mg by mouth twice daily with meals. - clopidogrel (PLAVIX) 75 mg tablet Take 1 tablet by mouth once daily. - Cholecalciferol, Vitamin D3, 25 mcg (1,000 unit) cap Take 1,000 Units by mouth once daily. - losartan (COZAAR) 50 mg tablet Take 1 tablet by mouth twice daily. - busPIRone (BUSPAR) 10 mg tablet Take 10 mg by mouth twice daily. - escitalopram oxalate (LEXAPRO) 20 mg tablet Take 20 mg by mouth once daily. - ferrous sulfate 325 mg (65 mg iron) tablet Take 325 mg by mouth daily with breakfast. - rosuvastatin (CRESTOR) 10 mg tablet Take 10 mg by mouth once daily. 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 MR/[place] 04-06-2025 MR/[facility] Medical Records Department [address] [place] [address] PAT - Anesthesia 04/06/25 1044 MR#: [id number] Acct: [id number] Name: PAVANLUCHO TAFOYA Rep #: [id number] : 1940 84 From: Gustavo Sanford MD PCP: Dr. 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 When Was Last Pacemaker Check QUESTION #4 FULL TEXT: You/Your Family Experience fever (hyperthermia) with Anesthesia Last Oral Intake Last Oral intake: Last Oral Intake NPO since Meds taken in AM with sips of water? 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 Has anyone observed you stop No 04/03/25 15:27 breathing during sleep? STOP Results Negative 04/03/25 15:27 QUESTION #5 FULL TEXT : Do you snore loudly (louder than talking or can be heard through closed doors)? 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 Specify any problems Hx of Preganancy in last 3 No 04/03/25 15:27 Months Nurse Filling Out Transfusion VCHRISTIN 04/03/25 15:27 Questions: Date: 04/03/25 04/03/25 15:27 Time: 15:04/03/25 15:27 Patient unable to answer at this time (ie. 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 cable equipment technician: /Reproductive Hx- submarine cable equipment technician Hx Now No 04/03/25 15:27 Gestational Age (in weeks): EDC: Hx Hx Para Hx Section SAB No 04/03/25 15:27 [facility] Medical History (Updated 04/06/25 @ 10:33 by Evelyn Gorman) Wears dentures Wears glasses Post-menopausal Depression Diabetes Walker as ambulation aid Arthritis History of renal disease Tremor Stroke/cerebrovascular accident Non-smoker BiPAP (biphasic positive airway pressure) dependence Sleep apnea Shortness of breath on exertion History of pain when walking History of edema History of echocardiogram Cardiology follow-up encounter Anemia in chronic kidney disease Secondary hyperparathyroidism Essential hypertension CKD (chronic kidney disease), stage IV Home Medications ???Medication ???Instructions ???Recorded ???Last Taken ???Type acetaminophen 325 mg capsule 325 mg PO QHS 02/23/25 Unknown His tory allopurinol 100 mg tablet 100 mg PO DAILY 02/23/25 Unknown H istory amlodipine 10 mg tablet 10 mg PO QDAY 02/23/25 Unknown His tory aspirin 81 mg tablet,delayed 81 mg PO QDAY 02/23/25 Unknown His tory release atorvastatin 40 mg tablet 40 mg PO QDAY 02/23/25 Unknown His tory bus (more content not included)... Normal [facility] FERRITIN [CCL]on 03-26-2025 Ferritin [Mass/Vol] 74.0 ng/mL Normal 14.7-205.1 [facility] Comment on above: Result Comment: [facility] [address] [place], [place] [address]AtkitaJose A Black III, M.D.[id number] Performed By: #### 2 13524 ####[facility],[address] [facility] [address] MR/BMSRicha 03-26-2025 MR/KIMBERLY [facility] Vascular Surgery [address] [facility] [place] [address] OFFICE VISIT Date of Service: 03/26/25 MR#: [id number] Acct: [id number] Name: LUCHO BROWNE Rep #: [id number] : 1940 Provider: Dr. Jose C Ashraf MD Age/Sex: 84/F Location: [facility] Status: Signed Intake Vital Signs 03/26/25 14:28 Weight: 242 lb BP 150/61 H Blood Pressure Location Rt radial Position Sitting Respiration 18 Pulse 60 Pulse Source Monitor Temp 97.7 F L Temp Source Temporal Pulse Oximetry (%) 98 Oxygen Delivery Method room air Intake Visit Reasons: Discuss Vein Mapping Chief Complaint: New Patient Is patient in pain?: No Allergies No Known Allergies Allergy (Verified 03/26/25 14:28) Medications ???Medication ???Instructions ???Recorded ???Confirmed ???Type acetaminophen 325 mg capsule 325 mg PO ONCE PRN 02/23/25 History allopurinol 100 mg tablet 50 mg PO .every other day 02/23/25 03/26/25 History amlodipine 10 mg tablet 10 mg PO QDAY 02/23/25 03/26/25 Hi story aspirin 81 mg tablet,delayed 81 mg PO QDAY 02/23/25 03/26/25 Hi story release atorvastatin 40 mg tablet 40 mg PO QDAY 02/23/25 03/26/25 Hi story buspirone 10 mg tablet 10 mg PO BID 02/23/25 03/26/25 His tory calcitriol 0.5 mcg capsule 0.5 mcg PO QDAY 02/23/25 03/26/25 History cholecalciferol (vitamin D3) 25 25 mcg PO QDAY 02/23/25 03/26/25 H istory mcg (1,000 unit) capsule clonidine HCl 0.2 mg tablet 0.2 mg PO BID 02/23/25 03/26/25 Hi story furosemide 40 mg tablet (Lasix) 40 mg PO BID PRN 02/23/25 03/26/25 History hydralazine 25 mg tablet 25 mg PO TID 02/23/25 03/26/25 His tory magnesium oxide 400 mg (241.3 mg 400 mg PO QDAY 02/23/25 03/26/25 H istory magnesium) tablet melatonin 3 mg capsule 3 mg PO HS PRN 02/23/25 03/26/25 H istory metolazone 5 mg tablet 5 mg PO Q12H 02/23/25 03/26/25 His tory ropinirole 0.25 mg tablet 0.25 mg PO QHS 02/23/25 03/26/25 H istory spironolactone 100 mg tablet 100 mg PO QDAY 02/23/25 03/26/25 H istory Is last menstrual period known: No Post menopausal: Yes Patient : No Have you fallen in the past year?: Yes [facility] Medical History Anemia in chronic kidney disease Secondary hyperparathyroidism Essential hypertension CKD (chronic kidney disease), stage IV Social History adopted: No current occupational exposures/hazards: No pets and animals: No history of recent travel: No Smoking Status: Never smoker Electronic Cigarette Use: not used second hand exposure: No alcohol intake: never substance use type: does not use diet: diabetic HPI HPI HPI: LUCHO BROWNE, is a 84 F who presents to the office today for follow up discussion of dialysis options, has had her vein mapping complete. Followed for renal decline for several years, not yet on dialysis. ROS General General: Yes fatigue; No weight change, appetite, colon cancer, breast cancer or weakness HEENT HEENT: No difficulty swallowing, eye injury, eye surgery, swollen glands or hoarseness Endo Endocrine: Yes diabetes mellitus; No thyroid disease, thyroid cancer, Hair loss, heat intolerance or cold intolerance Skin Skin: No rash or changing moles Musc Musculoskeletal: No back problems, arthritis, rheumatoid arthritis, gout or joint pain Cardio Cardiovascular: Yes high blood pressure and shortness of breath with exertion; No murmur, pacemaker, heart disease, atrial fibrillation, heart attack, heart stent, palpitations or chest pain Psych Psychiatric: Yes depression and anxiety; No hearing voices Resp Respiratory: No shortness of breath, Yes sleep apnea, No cough, No COPD, No asthma, No emphysema and No wheezing Gastro Gastrointestinal: No abdominal pain, No nausea or vomiting, No diarrhea, No constipation, No blood in stool, No acid reflux, No hemorrhoids, No ulcers, No gallbladder problem and No black,tarry stools Samuel Hematologic: Yes blood thinners, No blood disorders, No bleeding, No anemia and No blood clots Neuro Neurologic: No system reviewed and no additional complaints, except as documented, No as per HPI, No abnormal gait, No abnormal hearing, No abnormal movements, No abnormal speech, No behavioral changes, No burning sensations, No confusion, No convulsions, Yes disequilibrium, No dizziness, No localized weakness, No frequent falls, No headache(s), No lack of coordination, No loss of vision, No memory loss, No numbness, No other visual disturbances, No radicular pain, Yes restless legs, No sensory deficit, No syncope, No tingling, Yes tremor(s), No weakness and Yes other (stroke) Exam Const General: cooperative, (more content not included)... Normal [facility] PTH, INTACT [CCL]on 03-26-20 25 PTH, Intact 40 pg/mL Normal 15-65 [facility] Comment on above: Result Comment: [facility] [place], [place] [address]EyythbOmalley III, M.D.[id number] Performed By: #### 2 27561 ####[address] [address] CBC + DIFFon 03-25-2025 Baso # 0.02 x10EE3/UL Normal 0.00 - 0.10 [facility] Comment on above: Performed By: #### 2 75544 ####[address] [address] Basophils/100 WBC (Bld) 0.3 % Normal 0.0 - 2.0 [facility] Comment on above: Performed By: #### 2 33414 ####[facility] [place] [address] CBC + DIFF Normal [facility] Comment on above: Result Comment: CBC- COMPLETE BLOOD COUNT Performed By: #### 2 06174 ####[facility],[address] [place] [address] EO # 0.03 x10EE3/UL Normal 0.00 - 0.50 [facility] Comment on above: Performed By: #### 2 58996 ####[facility],[address] [place] [address] Eosinophils/100 WBC (Bld) 0.5 % Normal 0.0 - 7.0 [facility] Comment on above: Performed By: #### 2 49038 ####[facility],[address] [place] [address] Erythrocyte distribution width (RBC) [Ratio] 15.2 % Normal 12.0 - 15.6 [facility] Comment on above: Performed By: #### 2 38624 ####[facility],[address] [place] [address] Hematocrit (Bld) [Volume fraction] 31.7 % Low 34.0 - 46.0 [facility] Comment on above: Performed By: #### 2 73504 ####[facility],[address] [place] [address] Hemoglobin (Bld) [Mass/Vol] 11.0 g/dL Low 12.0 - 16.0 [facility] Comment on above: Performed By: #### 2 52174 ####[facility],[address] [place] [address] Lymph # 1.22 x10EE3/UL Normal 0.80 - 2.80 [facility] Comment on above: Performed By: #### 2 01991 ####[facility],[address] [place] [address] Lymphocytes/100 WBC (Bld) 21.7 % Normal 20.0 - 45.0 [facility] Comment on above: Performed By: #### 2 15179 ####[facility],[address] [place] [address] MANUAL DIFF N/A Normal [facility] Comment on above: Performed By: #### 2 74362 ####[facility],[address] [place] [address] MCH (RBC) [Entitic mass] 32 pg Normal 27 - 33 [facility] Comment on above: Performed By: #### 2 89811 ####[facility],[address] [place] [address] MCHC 35 X10 3 Normal 32 - 36 [facility] Comment on above: Performed By: #### 2 76831 ####[facility],[address] [place] [address] MCV (RBC) [Entitic vol] 91 fL Normal 80 - 99 [facility] Comment on above: Performed By: #### 2 78361 ####[facility],[address] [place] [address] [place] # 0.50 x10EE3/UL Normal 0.20 - 1.00 [facility] Comment on above: Performed By: #### 2 57343 ####[facility],[address] [place] [address] MONOS % 8.9 % Normal 0.0 - 10.0 [facility] Comment on above: Performed By: #### 2 07797 ####[facility],[address] [place] [address] Morphology Souleymane (Bld) [Interp] N/A Normal [facility] Comment on above: Performed By: #### 2 70879 ####[facility],[address] [place] [address] Neut # 3.86 x10EE3/UL Normal 1.50 - 7.10 [facility] Comment on above: Performed By: #### 2 27360 ####[facility],[address] [place] [address] Neutrophils/100 WBC (Bld) 68.6 % Normal 46.0 - 76.0 [facility] Comment on above: Performed By: #### 2 80938 ####[facility],[address] [place] [address] PLATELET 145 x10EE3/UL Low 150 - 450 [facility] Comment on above: Performed By: #### 2 32761 ####[facility],[address] [place] [address] Platelet mean volume (Bld) [Entitic vol] 9.2 fL Normal 6.6 - 10.5 [facility] Comment on above: Result Comment: AUTO MATED DIFFERENTIAL Performed By: #### 2 65283 ####[facility],[address] [place] [address] RBC 3.49 x 10EE6/UL Low 4.10 - 5.30 [facility] Comment on above: Performed By: #### 2 29952 ####[facility],[address] [place] [address] WBC 5.6 x 10EE3/UL Normal 4.5 - 10.8 [facility] Comment on above: Performed By: #### 2 06226 ####[facility],[address] [place] [address] Ferritin SerPl-mCncon 2024 Ferritin [Mass/Vol] 74.0 ng/mL Normal 14.7-205.1 [facility] Comment on above: Order Comment: Speci men Type: BLOOD SPECIMEN Ordering Facility: [facility] Address: [address] [place] [address] Performed By: #### 2 276-4 #### [facility] CLIA [id number] [address] [place] [address] [place] IRON AND TIBCon 03-25-2025 %SATURATION 31 % Normal [facility] Comment on above: Performed By: #### 2 37967 ####[facility],[address] [place] [address] [place] [address] Iron [Mass/Vol] 96 ug/dL Normal 50 - 170 [facility] Comment on above: Performed By: #### 2 74096 ####[facility],[address] [place] [address] [place] [address] TIBC 310 ug/dl Normal 250 - 450 [facility] Comment on above: Performed By: #### 2 21862 ####[facility],[address] [place] [address] [place] [address] UIBC 214 ug/dL Normal 155 - 355 [facility] Comment on above: Performed By: #### 2 32092 ####[facility],[address] [place] [address] PTH-Intact SerPl-mCncon 03-06 Parathyrin.intact [Mass/Vol] 40 pg/mL Normal 15-65 [facility] Comment on above: Order Comment: Speci men Type: BLOOD SPECIMEN Ordering Facility: [facility] Address: [address] [place], [place] [address] Performed By: #### 2 731-8 #### [facility] CLIA [id number] [address] [place] [address] STATES OF [facility] RENAL FUNCTION PANELon 03-25 Albumin [Mass/Vol] 3.6 g/dL Normal 3.4 - 5.0 [facility] Comment on above: Performed By: #### 2 13906 ####[facility],[address] [place] [address] [place] [address] B/C RATIO 20 ratio Normal 0 - 30 [facility] Comment on above: Performed By: #### 2 26292 ####[facility],[address] [place] [address] Calcium [Mass/Vol] 12.4 mg/dL High 8.5 - 10.1 [facility] Comment on above: Performed By: #### 2 20840 ####[facility],[address] [place] [address] Chloride [Moles/Vol] 103 mmol/L Normal 98 - 107 [facility] Comment on above: Performed By: #### 2 46185 ####[facility],[address] [place] [address] CO2 [Moles/Vol] 26.4 mmol/L Normal 21.0 - 32.0 [facility] Comment on above: Performed By: #### 2 44194 ####[facility],[address] [place] [address] Creatinine [Mass/Vol] 3.36 mg/dL High 0.55 - 1.02 [facility] Comment on above: Performed By: #### 2 16064 ####[facility],[address] [place] [address]297 Glucose [Mass/Vol] 155 mg/dL High 74 - 106 [facility] Comment on above: Performed By: #### 2 70238 ####[facility],[address] [place] [address] Phosphate [Mass/Vol] 4.7 mg/dL Normal 2.6 - 4.7 [facility] Comment on above: Performed By: #### 2 14048 ####[facility],[address] [place] [address]64 Potassium [Moles/Vol] 4.6 mmol/L Normal 3.5 - 5.1 [facility] Comment on above: Performed By: #### 2 73438 ####[facility],[address] [place] [address] RENAL FUNCTION PANEL Normal [facility] Comment on above: Result Comment: SUSAN L FUNCTION PANEL Performed By: #### 2 87028 ####[facility],[address] [place] [address] Sodium [Moles/Vol] 140 mmol/L Normal 136 - 145 [facility] Comment on above: Performed By: #### 2 88817 ####[facility],[address] [facility] [address] Urea nitrogen [Mass/Vol] 66 mg/dL High 7 - 18 [facility] Comment on above: Performed By: #### 2 58985 ####[facility],[address] [facility] [address] Venous duplex ultrasound rep ortOrdered By: Jose C Ashraf on 03-05-2025 US Vein [facility] Cardiovascular Services [address] [place] [address] Dialysis Vein Map PRE-OP BILAT 03/04/25 1342 MR#: [id number] Acct: [id number] Name: LUCHO BROWNE Rep #:[id number] : 1940 84 From: Jose C Singh Attending Dr: EH Trevino Stat us: REG CLI Ordering Dr: Lindsey Simon Date: Location: [facility] Sex: F C Admitted: Reason For Study Reason For Study: Pre-op AVF planning Right Lower Arm Left Arm Distal Radial artery diameter 0.18 x 0.20 cm. Left Brachial artery diameter 0.41 x 0.43 mm. Proximal Radial artery waveform is triphasic . Left Brachial artery waveform is triphasic . Proximal Radial artery PSV = 130.0 cm/s. Left Brachial artery PSV = 164.4 cm/s. Right Arm Cephalic Vein at distal forearm measures 0.16 x 0.16 Right Brachial artery diameter 0.36 x 0.44 mm. cm. Right Brachial artery waveform is triphasic . Cephalic Vein at mid forearm measures 0.20 x 0.22 cm. Right Brachial artery PSV = 146.2 cm/s. Cephalic Vein proximal forearm measures 0.20 x 0.18 Cephalic Vein at distal forearm measures 0.19 x 0.19 cm. cm. Cephalic Vein distal upper arm measures 0.18 x 0.20 Cephalic Vein at mid forearm measures 0.20 x 0.19 cm. cm. Cephalic Vein proximal forearm measures 0.19 x 0.18 Cephalic Vein at mid upper arm measures 0.20 x 0.20 cm. cm. Cephalic Vein distal upper arm measures 0.24 x 0.23 Cephalic Vein at proximal upper arm measures 0.19 x cm. 0.21 cm. Cephalic Vein at mid upper arm measures 0.28 x 0.30 Unable to visualize Lt Basilic Vein. cm. Left Lower Arm Cephalic Vein at proximal upper arm measures 0.30 x Distal Radial artery diameter 0.22 x 0.22 mm. 0.32 cm. Proximal Radial artery waveform is triphasic . Proximal Basilic vein measures 0.57 x 0.63 cm. Proximal Radial artery PSV =162.9/2.3 cm/s. Mid Basilic vein measures 0.42 x 0.37 cm. Distal Basilic vein measures 0.48 x 0.51 cm. Procedure This was a bilateral upper extremity venous doppler examination. Exam performed in department. VL/Dialysis Vein Map PRE-OP BILAT Interpretation Summary Bilateral upper extremity veins patent with measurements above. Bilateral upper extremity arteries patent with normal waveforms and measurementsabove. Ordering Physician: Lindsey Simon Referring Physician: Avelino Deleon Performed By: Dilip Lawrence, T ??? 03/05/25745 Date _ Jose C Ashraf MD CC: EH Trevino; Dr. Avelino Deleon MD ~ Date Dictated: 03/04/25 1342 Date Transcribed: 03/05/25745 Cleaner And Dyer: Signed [facility] Work Phone: Dialysis Vein Map PRE-OP ANGELINE ATon 03-04-2025 Dialysis Vein Map PRE-OP BILAT [facility] [address] [place] [address] Dialysis Vein Map PRE-OP BILAT 03/04/25 1342 MR#: [id number] Acct: [id number] Name: LUCHO BROWNE Rep #: [id number] : 1940 84 From: Jose C Ashraf MD Attending Dr: EH Trevino Status: REG CLI Ordering Dr: Lindsey Simon Date: 03/04/25 Location: [facility] Sex: F C Admitted: Reason For Study Reason For Study: Pre-op AVF planning Right Lower Arm Left Arm Distal Radial artery diameter 0.18 x 0.20 cm. Left Brachial artery diameter 0.41 x 0.43 mm. Proximal Radial artery waveform is triphasic . Left Brachial artery waveform is triphasic . Proximal Radial artery PSV = 130.0 cm/s. Left Brachial artery PSV = 164.4 cm/s. Right Arm Cephalic Vein at distal forearm measures 0.16 x 0.16 Right Brachial artery diameter 0.36 x 0.44 mm. cm. Right Brachial artery waveform is triphasic . Cephalic Vein at mid forearm measures 0.20 x 0.22 cm. Right Brachial artery PSV = 146.2 cm/s. Cephalic Vein proximal forearm measures 0.20 x 0.18 Cephalic Vein at distal forearm measures 0.19 x 0.19 cm. cm. Cephalic Vein distal upper arm measures 0.18 x 0.20 Cephalic Vein at mid forearm measures 0.20 x 0.19 cm. cm. Cephalic Vein proximal forearm measures 0.19 x 0.18 Cephalic Vein at mid upper arm measures 0.20 x 0.20 cm. cm. Cephalic Vein distal upper arm measures 0.24 x 0.23 Cephalic Vein at proximal upper arm measures 0.19 x cm. 0.21 cm. Cephalic Vein at mid upper arm measures 0.28 x 0.30 Unable to visualize Lt Basilic Vein. cm. Left Lower Arm Cephalic Vein at proximal upper arm measures 0.30 x Distal Radial artery diameter 0.22 x 0.22 mm. 0.32 cm. Proximal Radial artery waveform is triphasic . Proximal Basilic vein measures 0.57 x 0.63 cm. Proximal Radial artery PSV =162.9/2.3 cm/s. Mid Basilic vein measures 0.42 x 0.37 cm. Distal Basilic vein measures 0.48 x 0.51 cm. Procedure This was a bilateral upper extremity venous doppler examination. Exam performed in department. VL/Dialysis Vein Map PRE-OP BILAT Interpretation Summary Bilateral upper extremity veins patent with measurements above. Bilateral upper extremity arteries patent with normal waveforms and measurements above. Ordering Physician: Lindsey Simon Referring Physician: Avelino Deleon Performed By: Dilip Lawrence, T ??? 03/05/2546 Date Jose C Ashraf MD CC: EH Trevino; Dr. Avelino Deleon MD Date Dictated: 03/04/25 1342 Date Transcribed: 03/05/25745 Cleaner And Dyer: Signed Normal [facility] FERRITIN [CCL]on 02-26-2025 Ferritin [Mass/Vol] 173.0 ng/mL Normal 14.7-205.1 [facility] Comment on above: Result Comment: [facility] [address] [place], [place] [address]OmyintJose A Black III, M.D.[id number] Performed By: #### 2 40874 ####[facility],[address] [place] [address] 23498 CBC + DIFFon 02-25-2025 Baso # 0.04 x10EE3/UL Normal 0.00 - 0.10 [facility] Comment on above: Performed By: #### 2 37820 ####[facility],[address] [place] [address] Basophils/100 WBC (Bld) 0.5 % Normal 0.0 - 2.0 [facility] Comment on above: Performed By: #### 2 68221 ####[facility],[address] [place] [address] CBC + DIFF Normal [facility] Comment on above: Result Comment: CBC- COMPLETE BLOOD COUNT Performed By: #### 2 19517 ####[facility],[address] [place] [address] EO # 0.04 x10EE3/UL Normal 0.00 - 0.50 [facility] Comment on above: Performed By: #### 2 08021 ####[facility],[address] [place], [place] [address] Eosinophils/100 WBC (Bld) 0.5 % Normal 0.0 - 7.0 [facility] Comment on above: Performed By: #### 2 50550 ####[facility],[address] [place] [address] Erythrocyte distribution width (RBC) [Ratio] 14.3 % Normal 12.0 - 15.6 [facility] Comment on above: Performed By: #### 2 51090 ####[facility],[address] [place] [address] Hematocrit (Bld) [Volume fraction] 28.0 % Low 34.0 - 46.0 [facility] Comment on above: Performed By: #### 2 20114 ####[facility],[address] [place], [place] [address] Hemoglobin (Bld) [Mass/Vol] 9.9 g/dL Low 12.0 - 16.0 [facility] Comment on above: Performed By: #### 2 44512 ####[facility] [facility] [place] [address] Lymph # 1.29 x10EE3/UL Normal 0.80 - 2.80 [facility] Comment on above: Performed By: #### 2 48385 ####[facility],[address] [place], [place] [address] Lymphocytes/100 WBC (Bld) 16.4 % Low 20.0 - 45.0 [facility] Comment on above: Performed By: #### 2 77462 ####[facility],[address] [place] [address] MANUAL DIFF N/A Normal [facility] Comment on above: Performed By: #### 2 66004 ####[facility],[address] [place] [address] MCH (RBC) [Entitic mass] 31 pg Normal 27 - 33 [facility] Comment on above: Performed By: #### 2 26433 ####[place] [address] MCHC 35 X10 3 Normal 32 - 36 [facility] Comment on above: Performed By: #### 2 81364 ####[place] [id number] MCV (RBC) [Entitic vol] 89 fL Normal 80 - 99 [facility] Comment on above: Performed By: #### 2 94689 ####[facility],[address] [place] [address] [place] # 0.59 x10EE3/UL Normal 0.20 - 1.00 [facility] Comment on above: Performed By: #### 2 14017 ####[address] [address] MONOS % 7.4 % Normal 0.0 - 10.0 [facility] Comment on above: Performed By: #### 2 16221 ####[facility],[address] [place] [address] 11735 Morphology Souleymane (Bld) [Interp] N/A Normal [facility] Comment on above: Performed By: #### 2 14806 ####[facility],[address] [place] [address] 81126 Neut # 5.92 x10EE3/UL Normal 1.50 - 7.10 [facility] Comment on above: Performed By: #### 2 62219 ####[facility],[address] [place] [address] 46775 Neutrophils/100 WBC (Bld) 75.3 % Normal 46.0 - 76.0 [facility] Comment on above: Performed By: #### 2 13889 ####[facility],[address] [place] [address] 10013 PLATELET 140 x10EE3/UL Low 150 - 450 [facility] Comment on above: Performed By: #### 2 70532 ####[facility],[address] [place] [address] 26693 Platelet mean volume (Bld) [Entitic vol] 9.4 fL Normal 6.6 - 10.5 [facility] Comment on above: Result Comment: AUTO MATED DIFFERENTIAL Performed By: #### 2 25588 ####[facility],[address] [place] [address] RBC 3.16 x 10EE6/UL Low 4.10 - 5.30 [facility] Comment on above: Performed By: #### 2 44834 ####[facility],[address] [place] [address] 96142 WBC 7.9 x 10EE3/UL Normal 4.5 - 10.8 [facility] Comment on above: Performed By: #### 2 44436 ####[facility],[address] [place], [place] [address] Ferritin SerPl-mCncon 2024 Ferritin [Mass/Vol] 173.0 ng/mL Normal 14.7-205.1 [facility] Comment on above: Order Comment: Speci men Type: BLOOD SPECIMEN Ordering Facility: [facility] Address: [address] [place] [address] Performed By: #### 2 276-4 #### [facility] CLIA [id number] [address] [place] [address] [place] IRON AND TIBCon 02-25-2025 %SATURATION 29 % Normal [facility] Comment on above: Performed By: #### 2 17475 ####[facility],[address] [place] [address] 04304 Iron [Mass/Vol] 75 ug/dL Normal 50 - 170 [facility] Comment on above: Performed By: #### 2 45075 ####[facility],[address] [place] [address] TIBC 257 ug/dl Normal 250 - 450 [facility] Comment on above: Performed By: #### 2 66849 ####[facility],[address] [place], [place] [address] UIBC 182 ug/dL Normal 155 - 355 [facility] Comment on above: Performed By: #### 2 85141 ####[facility],[address] [place] [address] 09617 RENAL FUNCTION PANELon 02-25 Albumin [Mass/Vol] 3.6 g/dL Normal 3.4 - 5.0 [facility] Comment on above: Performed By: #### 2 71661 ####[facility],[address] [place] [address] 82696 B/C RATIO 19 ratio Normal 0 - 30 [facility] Comment on above: Performed By: #### 2 61673 ####[facility],[address] [place] [address] 20152 Calcium [Mass/Vol] 11.8 mg/dL High 8.5 - 10.1 [facility] Comment on above: Performed By: #### 2 74159 ####[facility],[address] [place] [address] 08802 Chloride [Moles/Vol] 103 mmol/L Normal 98 - 107 [facility] Comment on above: Performed By: #### 2 51962 ####[facility],[address] [place] [address] 97956 CO2 [Moles/Vol] 28.8 mmol/L Normal 21.0 - 32.0 [facility] Comment on above: Performed By: #### 2 13515 ####[facility],[address] [place] [address] 09161 Creatinine [Mass/Vol] 3.44 mg/dL High 0.55 - 1.02 [facility] Comment on above: Performed By: #### 2 54674 ####[facility],[address] [place] [address] 26652 Glucose [Mass/Vol] 193 mg/dL High 74 - 106 [facility] Comment on above: Performed By: #### 2 76984 ####[facility],[address] [place] [address] 28278 Phosphate [Mass/Vol] 3.7 mg/dL Normal 2.6 - 4.7 [facility] Comment on above: Performed By: #### 2 98133 ####[facility],[address] [place] [address] 39836 Potassium [Moles/Vol] 4.5 mmol/L Normal 3.5 - 5.1 [facility] Comment on above: Performed By: #### 2 34965 ####[facility],[address] [place] [address] 49739 RENAL FUNCTION PANEL Normal [facility] Comment on above: Result Comment: SUSAN L FUNCTION PANEL Performed By: #### 2 60645 ####[facility],[address] [place] [address] 49380 Sodium [Moles/Vol] 139 mmol/L Normal 136 - 145 [facility] Comment on above: Performed By: #### 2 63810 ####[facility],[address] [place] [address] 05412 Urea nitrogen [Mass/Vol] 66 mg/dL High 7 - 18 [facility] Comment on above: Performed By: #### 2 51849 ####[facility],[address] [facility] [address] MR/BMSRicha 02-24-2025 MR/BMS.RUTH [facility] 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 Is patient in pain?: No Allergies No Known Allergies Allergy (Unverified 01/20/25 08:26) Medications ???Medication ???Instructions ???Recorded ???Confirmed ???Type acetaminophen 325 mg capsule 325 mg PO ONCE PRN 02/23/25 History allopurinol 100 mg tablet 50 mg PO .every other day 02/23/25 02/23/25 History amlodipine 10 mg tablet 10 mg PO QDAY 02/23/25 02/23/25 Hi story aspirin 81 mg tablet,delayed 81 mg PO QDAY 02/23/25 02/23/25 Hi story release atorvastatin 40 mg tablet 40 mg PO QDAY 02/23/25 02/23/25 Hi story buspirone 10 mg tablet 10 mg PO BID 02/23/25 02/23/25 His tory calcitriol 0.5 mcg capsule 0.5 mcg PO QDAY 02/23/25 02/23/25 History cholecalciferol (vitamin D3) 25 25 mcg PO QDAY 02/23/25 02/23/25 H istory mcg (1,000 unit) capsule clonidine HCl 0.2 mg tablet 0.2 mg PO BID 02/23/25 02/23/25 Hi story furosemide 40 mg tablet (Lasix) 40 mg PO BID PRN 02/23/25 02/23/25 History hydralazine 25 mg tablet 25 mg PO TID 02/23/25 02/23/25 His tory magnesium oxide 400 mg (241.3 mg 400 mg PO QDAY 02/23/25 02/23/25 H istory magnesium) tablet melatonin 3 mg capsule 3 mg PO HS PRN 02/23/25 02/23/25 H istory metolazone 5 mg tablet 5 mg PO Q12H 02/23/25 02/23/25 His tory ropinirole 0.25 mg tablet 0.25 mg PO QHS 02/23/25 02/23/25 H istory spironolactone 100 mg tablet 100 mg PO QDAY 02/23/25 02/23/25 H istory Is last menstrual period known: No Post menopausal: Yes Patient : No Have you fallen in the past year?: Yes PFSH Medical History Anemia in chronic kidney disease Secondary hyperparathyroidism Essential hypertension CKD (chronic kidney disease), stage IV Social History adopted: No service: No current occupational exposures/hazards: No pets and animals: No history of recent travel: No current gender identity: female Smoking Status: Never smoker Electronic Cigarette Use: not used second hand exposure: No alcohol intake: never substance use type: does not use diet: diabetic HPI HPI HPI: LUCHO BROWNE, is a 84 F who presents to the office today for consultation for dialysis access creation by Dr. Sneed from [facility]. She is accompanied to her appointment today by her daughter who helps to coordinate her healthcare. She is not yet on dialysis. 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 She is R hand dominant. She denies any history of arm/clavicle fracture, lymph node dissection, VTE, pacemaker/defibrillator placement, PICC line/med ports. She has not had any imaging with respect to dialysis access creation. ROS General General: Yes fatigue; No weight change, appetite, colon cancer, breast cancer or weakness HEENT HEENT: No difficulty swallowing, eye injury, eye surgery, swollen glands or hoarseness Endo Endocrine: Yes diabetes mellitus; No thyroid disease, thyroid cancer, Hair loss, heat intolerance or cold intolerance Skin Skin: No rash or changing moles Musc Musculoskeletal: No back problems, arthritis, rheumatoid arthritis, gout or joint pain Cardio Cardiovascular: Yes high blood pressure; No murmur, pacemaker, heart disease, atrial fibrillation, heart attack, heart stent, palpitations, shortness of breath with exertion or chest pain Psych Psychiatric: Yes depression and anxiety; No hearing voices Resp Respiratory: Yes shortness of breath, Yes sleep apnea, No cough, No COPD, No asthma, No emphysema and No wheezing Gastro Gastrointestinal: No abdominal pain, No nausea or vomiting, No diarrhea, No constipation, No blood in stool, No acid reflux, No hemorrhoids, No ulcers, No gallbladder problem and No black,tarry stools Samuel Hematologic: Yes blood thinners, No blood disorders, No bleeding, No anemia and No blood clots Neuro Neurologic: No system reviewed and no additional complaints, except as documented, No (more content not included)... Normal [facility] BMP with eGFRon 02-23-2025 AGE 84 years Normal [facility] Comment on above: Performed By: #### 2 53321 ####[facility],[address] [place] [address] Anion gap [Moles/Vol] 15 mmol/L Normal 10 - 20 [facility] Comment on above: Performed By: #### 2 39169 ####[facility],[address] [place] [address] BMP with eGFR Normal [facility] Comment on above: Result Comment: BASI C METABOLIC PANEL Performed By: #### 2 76095 ####[facility],[address] [place] [address] Calcium [Mass/Vol] 12.1 mg/dL High 8.5 - 10.1 [facility] Comment on above: Result Comment: REPE ATED Performed By: #### 2 19768 ####[facility],[address] [place] [address] 92525 Chloride [Moles/Vol] 103 mmol/L Normal 98 - 107 [facility] Comment on above: Performed By: #### 2 22456 ####[facility],[address] [place] [address] 64853 CO2 [Moles/Vol] 26.2 mmol/L Normal 21.0 - 32.0 [facility] Comment on above: Performed By: #### 2 52208 ####[facility],[address] [place] [address] 26082 Creatinine [Mass/Vol] 3.44 mg/dL High 0.55 - 1.02 [facility] Comment on above: Performed By: #### 2 39992 ####[facility],[address] [place] [address] 36908 eGFR 13 ML/MINUTE Low 60 - 999 [facility] Comment on above: Performed By: #### 2 79125 ####[facility],[address] [place] [address] 49192 eGFR(AA) 15 ML/MINUTE Low 60 - 999 [facility] Comment on above: Result Comment: ACCO RDING TO THE NATIONAL KIDNEY DISEASE EDUCATION PROGRAM(NKDE), A NORMAL eGFRIS A VALUE GREATER THAN OR EQUAL TO 60 ML/MIN/1.73 SQ METERS.CHRONIC KIDNEY DISEASE: <60mL/MIN/1.73 SQ METERSKIDNEY FAILURE: <15mL/MIN/1.73 SQ METERSTHIS TEST SHOULD ONLY BE USED FOR PATIENTS 18 YEARS OF AGE AND OLDER. Performed By: #### 2 64112 ####[facility],[address] [place] [address] 02779 Glucose [Mass/Vol] 142 mg/dL High 74 - 106 [facility] Comment on above: Performed By: #### 2 43107 ####[facility],[address] [place] [address] 14641 Potassium [Moles/Vol] 4.4 mmol/L Normal 3.5 - 5.1 [facility] Comment on above: Performed By: #### 2 53758 ####[facility],[address] [place] [address] 87318 Sodium [Moles/Vol] 140 mmol/L Normal 136 - 145 [facility] Comment on above: Performed By: #### 2 51859 ####[facility],[address] [place] [address] Urea nitrogen [Mass/Vol] 70 mg/dL High 7 - 18 [facility] Comment on above: Performed By: #### 2 46570 ####[facility],[address] [place] [address] CBC + DIFFon 01-28-2025 Baso # 0.04 x10EE3/UL Normal 0.00 - 0.10 [facility] Comment on above: Performed By: #### 2 18621 ####[facility],[address] [place] [address] 86340 Basophils/100 WBC (Bld) 0.6 % Normal 0.0 - 2.0 [facility] Comment on above: Performed By: #### 2 57010 ####[facility],[address] [place] [address] 39912 CBC + DIFF Normal [facility] Comment on above: Result Comment: CBC- COMPLETE BLOOD COUNT Performed By: #### 2 94212 ####[facility],[address] [place] [address] 95546 EO # 0.04 x10EE3/UL Normal 0.00 - 0.50 [facility] Comment on above: Performed By: #### 2 04919 ####[address] [address] Eosinophils/100 WBC (Bld) 0.6 % Normal 0.0 - 7.0 [facility] Comment on above: Performed By: #### 2 95410 ####[facility],[address] [place] [address] Erythrocyte distribution width (RBC) [Ratio] 14.7 % Normal 12.0 - 15.6 [facility] Comment on above: Performed By: #### 2 84001 ####[facility],[address] [place], [place] [address] Hematocrit (Bld) [Volume fraction] 30.8 % Low 34.0 - 46.0 [facility] Comment on above: Performed By: #### 2 84743 ####[facility],[address] [place] [address] Hemoglobin (Bld) [Mass/Vol] 10.5 g/dL Low 12.0 - 16.0 [facility] Comment on above: Performed By: #### 2 40551 ####[facility],[address] [place] [address] Lymph # 1.13 x10EE3/UL Normal 0.80 - 2.80 [facility] Comment on above: Performed By: #### 2 88551 ####[facility],[address] [place], [place] [address] Lymphocytes/100 WBC (Bld) 16.6 % Low 20.0 - 45.0 [facility] Comment on above: Performed By: #### 2 20812 ####[facility],[address] [place] [address] 69919 MANUAL DIFF N/A Normal [facility] Comment on above: Performed By: #### 2 06381 ####[facility],[address] [place] [address] 44969 MCH (RBC) [Entitic mass] 30 pg Normal 27 - 33 [facility] Comment on above: Performed By: #### 2 21213 ####[facility],[address] [place] [address] 07517 MCHC 34 X10 3 Normal 32 - 36 [facility] Comment on above: Performed By: #### 2 18497 ####[facility],[address] [place], [place] [address] MCV (RBC) [Entitic vol] 89 fL Normal 80 - 99 [facility] Comment on above: Performed By: #### 2 12662 ####[facility],[address] [place] [address] 30410 [place] # 0.55 x10EE3/UL Normal 0.20 - 1.00 [facility] Comment on above: Performed By: #### 2 74975 ####[facility],[address] [place] [address] 74001 MONOS % 8.0 % Normal 0.0 - 10.0 [facility] Comment on above: Performed By: #### 2 89564 ####[facility],[address] [place], [place] [address] Morphology Souleymane (Bld) [Interp] N/A Normal [facility] Comment on above: Performed By: #### 2 19135 ####[facility],[address] [place] [address] Neut # 5.09 x10EE3/UL Normal 1.50 - 7.10 [facility] Comment on above: Performed By: #### 2 61766 ####[facility],[address] [place] [address] 16562 Neutrophils/100 WBC (Bld) 74.3 % Normal 46.0 - 76.0 [facility] Comment on above: Performed By: #### 2 14404 ####[facility],[address] [place] [address] 61942 PLATELET 94 x10EE3/UL Low 150 - 450 [facility] Comment on above: Performed By: #### 2 98284 ####[facility],[address] [place] [address] 22855 Platelet mean volume (Bld) [Entitic vol] 10.2 fL Normal 6.6 - 10.5 [facility] Comment on above: Result Comment: AUTO MATED DIFFERENTIAL Performed By: #### 2 63265 ####[facility],[address] [place] [address] 43783 RBC 3.48 x 10EE6/UL Low 4.10 - 5.30 [facility] Comment on above: Performed By: #### 2 93139 ####[facility],[address] [place] [address] 40526 WBC 6.9 x 10EE3/UL Normal 4.5 - 10.8 [facility] Comment on above: Performed By: #### 2 74455 ####[facility],[address] [place] [address] 97585 FERRITIN [CCL]on 01-28-2025 Ferritin [Mass/Vol] 87.2 ng/mL Normal 14.7-205.1 [facility] Comment on above: Result Comment: [place], [place] [address]Jose A Black III, M.D.[id number] Performed By: #### 2 48870 ####[facility],[address] [place] [address] 62885 Ferritin SerPl-mCncon 2024 Ferritin [Mass/Vol] 87.2 ng/mL Normal 14.7-205.1 [facility] Comment on above: Order Comment: Speci men Type: BLOOD SPECIMEN Ordering Facility: [facility] Address: [address] [place], [place] [address] Performed By: #### 2 276-4 #### [facility] CLIA [id number] [address] [place] [address] [place] IRON AND TIBCon 01-28-2025 %SATURATION 34 % Normal [facility] Comment on above: Performed By: #### 2 52981 ####[facility],[address] [place] [address] 40317 Iron [Mass/Vol] 100 ug/dL Normal 50 - 170 [facility] Comment on above: Performed By: #### 2 59617 ####[facility],[address] [place] [address] 55211 TIBC 294 ug/dl Normal 250 - 450 [facility] Comment on above: Performed By: #### 2 25418 ####[facility],[address] [place] [address] 32384 UIBC 194 ug/dL Normal 155 - 355 [facility] Comment on above: Performed By: #### 2 82660 ####[facility],[address] [place] [address] 13475 RENAL FUNCTION PANELon 01-28 Albumin [Mass/Vol] 3.7 g/dL Normal 3.4 - 5.0 [facility] Comment on above: Performed By: #### 2 04245 ####[facility],[address] [place] [address] 50692 B/C RATIO 24 ratio Normal 0 - 30 [facility] Comment on above: Performed By: #### 2 79613 ####[facility],[address] [place] [address] 35915 Calcium [Mass/Vol] 11.3 mg/dL High 8.5 - 10.1 [facility] Comment on above: Performed By: #### 2 90379 ####[facility],[address] [place] [address] 24347 Chloride [Moles/Vol] 99 mmol/L Normal 98 - 107 [facility] Comment on above: Performed By: #### 2 29411 ####[facility],[address] [place] [address] 90309 CO2 [Moles/Vol] 26.0 mmol/L Normal 21.0 - 32.0 [facility] Comment on above: Performed By: #### 2 39443 ####[facility],[address] [place] [address] 37271 Creatinine [Mass/Vol] 3.47 mg/dL High 0.55 - 1.02 [facility] Comment on above: Performed By: #### 2 87057 ####[facility],[address] [place] [address] 12170 Glucose [Mass/Vol] 196 mg/dL High 74 - 106 [facility] Comment on above: Performed By: #### 2 55110 ####[facility],[address] [place] [address] 76005 Phosphate [Mass/Vol] 4.4 mg/dL Normal 2.6 - 4.7 [facility] Comment on above: Performed By: #### 2 21801 ####[facility],[address] [place] [address] 68189 Potassium [Moles/Vol] 5.2 mmol/L High 3.5 - 5.1 [facility] Comment on above: Performed By: #### 2 02614 ####[facility],[address] [place] [address] 85308 RENAL FUNCTION PANEL Normal [facility] Comment on above: Result Comment: SUSAN L FUNCTION PANEL Performed By: #### 2 69074 ####[facility],[address] [place] [address] 87164 Sodium [Moles/Vol] 136 mmol/L Normal 136 - 145 [facility] Comment on above: Performed By: #### 2 49408 ####[facility],[address] [place] [address] 61366 Urea nitrogen [Mass/Vol] 82 mg/dL High 7 - 18 [facility] Comment on above: Performed By: #### 2 43623 ####[facility],[address] [place] [address] [place] [address] PTH, INTACT [CCL]on 01-09-20 25 PTH, Intact 19 pg/mL Normal 15-65 [facility] Comment on above: Result Comment: [facility] [place], [place] [address]HvrvqrOmalley III, M.D.[id number] Performed By: #### 2 76023 ####[facility],[address] [place] [address] 34611 BMP with eGFRon 01-07-2025 AGE 84 years Normal [facility] Comment on above: Performed By: #### 2 78299 ####[facility],[address] [place] [address] 70696 Anion gap [Moles/Vol] 12 mmol/L Normal 10 - 20 [facility] Comment on above: Performed By: #### 2 26602 ####[facility],[address] [place] [address] 98744 BMP with eGFR Normal [facility] Comment on above: Result Comment: BASI C METABOLIC PANEL Performed By: #### 2 53579 ####[facility],[address] [place] [address] 89809 Calcium [Mass/Vol] 10.9 mg/dL High 8.5 - 10.1 [facility] Comment on above: Performed By: #### 2 10151 ####[facility],[address] [place] [address] 91590 Chloride [Moles/Vol] 101 mmol/L Normal 98 - 107 [facility] Comment on above: Performed By: #### 2 67164 ####[facility],[address] [place] [address] 83198 CO2 [Moles/Vol] 28.3 mmol/L Normal 21.0 - 32.0 [facility] Comment on above: Performed By: #### 2 20690 ####[facility],[address] [place] [address] 45877 Creatinine [Mass/Vol] 2.89 mg/dL High 0.55 - 1.02 [facility] Comment on above: Performed By: #### 2 86500 ####[facility],[address] [place] [address] 67002 eGFR 16 ML/MINUTE Low 60 - 999 [facility] Comment on above: Performed By: #### 2 53820 ####[facility],[address] [place] [address] 32618 eGFR(AA) 19 ML/MINUTE Low 60 - 999 [facility] Comment on above: Result Comment: ACCO RDING TO THE NATIONAL KIDNEY DISEASE EDUCATION PROGRAM(NKDE), A NORMAL eGFRIS A VALUE GREATER THAN OR EQUAL TO 60 ML/MIN/1.73 SQ METERS.CHRONIC KIDNEY DISEASE: <60mL/MIN/1.73 SQ METERSKIDNEY FAILURE: <15mL/MIN/1.73 SQ METERSTHIS TEST SHOULD ONLY BE USED FOR PATIENTS 18 YEARS OF AGE AND OLDER. Performed By: #### 2 72238 ####[address] [address] Glucose [Mass/Vol] 136 mg/dL High 74 - 106 [facility] Comment on above: Performed By: #### 2 21313 ####[address] [address] Potassium [Moles/Vol] 4.5 mmol/L Normal 3.5 - 5.1 [facility] [facility] Comment on above: Performed By: #### 2 60023 ####[address] [address] Sodium [Moles/Vol] 137 mmol/L Normal 136 - 145 [facility] Comment on above: Performed By: #### 2 48894 ####[address] [address] Urea nitrogen [Mass/Vol] 74 mg/dL High 7 - 18 [facility] Comment on above: Performed By: #### 2 42890 ####[address] [address] CBC + DIFFon 01-07-2025 Baso # 0.03 x10EE3/UL Normal 0.00 - 0.10 [facility] Comment on above: Performed By: #### 2 20672 ####[facility],[address] [place], [place] [address] Basophils/100 WBC (Bld) 0.5 % Normal 0.0 - 2.0 [facility] Comment on above: Performed By: #### 2 17953 ####[facility],[address] [place] [address] CBC + DIFF Normal [facility] Comment on above: Result Comment: CBC- COMPLETE BLOOD COUNT Performed By: #### 2 43825 ####[facility],[address] [place] [address] EO # 0.04 x10EE3/UL Normal 0.00 - 0.50 [facility] Comment on above: Performed By: #### 2 49580 ####[facility],[address] [place] [address] Eosinophils/100 WBC (Bld) 0.6 % Normal 0.0 - 7.0 [facility] Comment on above: Performed By: #### 2 72325 ####[facility],[address] [place] [address] Erythrocyte distribution width (RBC) [Ratio] 14.9 % Normal 12.0 - 15.6 [facility] Comment on above: Performed By: #### 2 62111 ####[facility],[address] [place] [address] Hematocrit (Bld) [Volume fraction] 28.7 % Low 34.0 - 46.0 [facility] Comment on above: Performed By: #### 2 23707 ####[facility],[address] [place], [place] [address] Hemoglobin (Bld) [Mass/Vol] 9.9 g/dL Low 12.0 - 16.0 [facility] Comment on above: Performed By: #### 2 93925 ####[facility],[address] [place] [address] Lymph # 1.48 x10EE3/UL Normal 0.80 - 2.80 [facility] Comment on above: Performed By: #### 2 40044 ####[facility],[address] [place] [address] Lymphocytes/100 WBC (Bld) 23.5 % Normal 20.0 - 45.0 [facility] Comment on above: Performed By: #### 2 70046 ####[facility],[address] [place] [address] MANUAL DIFF N/A Normal [facility] Comment on above: Performed By: #### 2 76080 ####[facility],[address] [place] [address] MCH (RBC) [Entitic mass] 31 pg Normal 27 - 33 [facility] Comment on above: Performed By: #### 2 83455 ####[facility],[address] [place] [address] MCHC 35 X10 3 Normal 32 - 36 [facility] Comment on above: Performed By: #### 2 30704 ####[facility],[address] [place], [place] [address] MCV (RBC) [Entitic vol] 90 fL Normal 80 - 99 [facility] Comment on above: Performed By: #### 2 04599 ####[facility],[address] [place] [address] [place] # 0.68 x10EE3/UL Normal 0.20 - 1.00 [facility] Comment on above: Performed By: #### 2 32301 ####[facility],[address] [place] [address] MONOS % 10.7 % High 0.0 - 10.0 [facility] Comment on above: Performed By: #### 2 55473 ####[facility],[address] [place] [address] Morphology Souleymane (Bld) [Interp] N/A Normal [facility] Comment on above: Performed By: #### 2 82405 ####[facility],[address] [place] [address] Neut # 4.09 x10EE3/UL Normal 1.50 - 7.10 [facility] Comment on above: Performed By: #### 2 27296 ####[facility],[address] [place] [address] Neutrophils/100 WBC (Bld) 64.8 % Normal 46.0 - 76.0 [facility] Comment on above: Performed By: #### 2 09248 ####[facility],[address] [place] [address] PLATELET 158 x10EE3/UL Normal 150 - 450 [facility] Comment on above: Performed By: #### 2 30005 ####[facility],[address] [place] [address] Platelet mean volume (Bld) [Entitic vol] 9.4 fL Normal 6.6 - 10.5 [facility] Comment on above: Result Comment: AUTO MATED DIFFERENTIAL Performed By: #### 2 06915 ####[facility],[address] [place] [address] RBC 3.20 x 10EE6/UL Low 4.10 - 5.30 [facility] Comment on above: Performed By: #### 2 56260 ####[facility],[address] [place] [address] WBC 6.3 x 10EE3/UL Normal 4.5 - 10.8 [facility] Comment on above: Performed By: #### 2 45689 ####[facility],[address] [place] [address] [facility] Parathyrin.intact [Mass/Vol] 19 pg/mL Normal 15-65 [facility] Comment on above: Order Comment: Speci men Type: BLOOD SPECIMEN Ordering Facility: [facility] Address: [address] [place] [address] Performed By: #### 2 731-8 #### [facility] CLIA [id number] [address] [place] [address] [place] URIC ACIDon 01-07-2025 Urate [Mass/Vol] 8.7 mg/dL High 2.6 - 6.0 [facility] Comment on above: Performed By: #### 2 17801 ####[facility],[address] [place] [address] URINE CREATININE AND PROTEIN RATIOon 01-07-2025 CREATININE UR 35.53 mg/dl Normal [facility] Comment on above: Performed By: #### 2 79346 ####[facility],[address] [place] [address] PC RATIO 1.34 mg/dL Normal 0.00 - 10.00 [facility] Comment on above: Performed By: #### 2 92554 ####[facility],[address] [place] [address] Protein (U) [Mass/Vol] 47.50 mg/dL High 0.00 - 10.00 [facility] Comment on above: Performed By: #### 2 65563 ####[facility],[address] [place] [address] VITAMIN D, 25 HYDROXYon VitD 40.30 ng/mL Normal 30.00 - 100 [facility] Comment on above: Result Comment: 25-O HD3 indicates both endogenous production and supplementation. 25-OHD2 is anindicator of exogenous sources, such as diet or supplementation. Therapy isbased on measurement of Total 25-OHD, with levels <20 ng/mL indicative ofVitamin D deficiency, while levels between 20 ng/mL and 30 ng/mL suggestinsufficiency. Optimal levels are >=30ng/mL.Vitamin D, 25-OH D3 Not EstablishedVitamin D, 25-OH D2 Not Established Performed By: #### 2 24071 ####[address] [address] PTH, INTACT [CCL]on 01-01-20 25 PTH, Intact 21 pg/mL Normal 15-65 [facility] Comment on above: Result Comment: [facility] [id number] [place], [place] [address]HyrbmfOmalley III, M.D.[id number] Performed By: #### 2 90022 ####[facility],[address] [place] [address] CBC + DIFFon 12-31-2024 Baso # 0.04 x10EE3/UL Normal 0.00 - 0.10 [facility] Comment on above: Performed By: #### 2 48533 ####[address] [address] Basophils/100 WBC (Bld) 0.6 % Normal 0.0 - 2.0 [facility] Comment on above: Performed By: #### 2 00607 ####[facility],[address] [place], [place] [address] CBC + DIFF Normal [facility] Comment on above: Result Comment: CBC- COMPLETE BLOOD COUNT Performed By: #### 2 64105 ####[address] [address] EO # 0.01 x10EE3/UL Normal 0.00 - 0.50 [facility] Comment on above: Performed By: #### 2 17269 ####[address] [address] Eosinophils/100 WBC (Bld) 0.2 % Normal 0.0 - 7.0 [facility] Comment on above: Performed By: #### 2 00897 ####[address] [address] Erythrocyte distribution width (RBC) [Ratio] 14.7 % Normal 12.0 - 15.6 [facility] Comment on above: Performed By: #### 2 15620 ####[place] [id number] Hematocrit (Bld) [Volume fraction] 31.1 % Low 34.0 - 46.0 [facility] Comment on above: Performed By: #### 2 24065 ####[facility],[address] [place], [place] [address] Hemoglobin (Bld) [Mass/Vol] 10.3 g/dL Low 12.0 - 16.0 [facility] Comment on above: Performed By: #### 2 55702 ####[facility],[address] [place] [address] Lymph # 1.28 x10EE3/UL Normal 0.80 - 2.80 [facility] Comment on above: Performed By: #### 2 13596 ####[facility],[address] [place] [address] Lymphocytes/100 WBC (Bld) 21.5 % Normal 20.0 - 45.0 [facility] Comment on above: Performed By: #### 2 06115 ####[facility],[address] [place], [place] [address] MANUAL DIFF N/A Normal [facility] Comment on above: Performed By: #### 2 92713 ####[facility],[address] [place], [place] [address] MCH (RBC) [Entitic mass] 30 pg Normal 27 - 33 [facility] Comment on above: Performed By: #### 2 95416 ####[facility],[address] [place], [place] [address] MCHC 33 X10 3 Normal 32 - 36 [facility] Comment on above: Performed By: #### 2 51923 ####[facility],[address] [place] [address] MCV (RBC) [Entitic vol] 90 fL Normal 80 - 99 [facility] Comment on above: Performed By: #### 2 60337 ####[facility],[address] [place], [place] [address] [place] # 0.48 x10EE3/UL Normal 0.20 - 1.00 [facility] Comment on above: Performed By: #### 2 00454 ####[facility],[address] [place] [address] MONOS % 8.0 % Normal 0.0 - 10.0 [facility] Comment on above: Performed By: #### 2 08477 ####[facility],[address] [place] [address] Morphology Souleymane (Bld) [Interp] N/A Normal [facility] Comment on above: Performed By: #### 2 33786 ####[facility],[address] [place] [address] Neut # 4.15 x10EE3/UL Normal 1.50 - 7.10 [facility] Comment on above: Performed By: #### 2 38828 ####[facility],[address] [place] [address] Neutrophils/100 WBC (Bld) 69.7 % Normal 46.0 - 76.0 [facility] Comment on above: Performed By: #### 2 85427 ####[facility],[address] [place] [address] PLATELET 123 x10EE3/UL Low 150 - 450 [facility] Comment on above: Performed By: #### 2 10291 ####[facility],[address] [place] [address] Platelet mean volume (Bld) [Entitic vol] 9.4 fL Normal 6.6 - 10.5 [facility] Comment on above: Result Comment: AUTO MATED DIFFERENTIAL Performed By: #### 2 79670 ####[facility],[address] [place] [address] RBC 3.47 x 10EE6/UL Low 4.10 - 5.30 [facility] Comment on above: Performed By: #### 2 72048 ####[facility],[address] [place] [address] WBC 6.0 x 10EE3/UL Normal 4.5 - 10.8 [facility] Comment on above: Performed By: #### 2 17860 ####[facility],[address] [place] [address] FERRITINon 12-31-2024 Ferritin [Mass/Vol] 45 ng/mL Normal 8 - 388 [facility] Comment on above: Performed By: #### 2 84890 ####[facility],[address] [place] [address]179 IRON AND TIBCon 12-31-2024 %SATURATION 30 % Normal [facility] Comment on above: Performed By: #### 2 60688 ####[facility],[address] [place] [address] Iron [Mass/Vol] 95 ug/dL Normal 50 - 170 [facility] Comment on above: Performed By: #### 2 88053 ####[facility],[address] [place] [address]68 TIBC 322 ug/dl Normal 250 - 450 [facility] Comment on above: Performed By: #### 2 82538 ####[facility],[address] [place] [address] UIBC 227 ug/dL Normal 155 - 355 [facility] Comment on above: Performed By: #### 2 82749 ####[facility],[address] [place] [address] PTH-Intact SerPl-mCncon 12-07 Parathyrin.intact [Mass/Vol] 21 pg/mL Normal 15-65 [facility] Comment on above: Order Comment: Speci men Type: BLOOD SPECIMEN Ordering Facility: [facility] Address: [address] [place], [place] [address] Performed By: #### 2 731-8 #### [facility] CLIA [id number] [address] [place] [address] [place] RENAL FUNCTION PANELon 12-31 Albumin [Mass/Vol] 3.5 g/dL Normal 3.4 - 5.0 [facility] Comment on above: Performed By: #### 2 25485 ####[facility],[address] [place] [address] B/C RATIO 25 ratio Normal 0 - 30 [facility] Comment on above: Performed By: #### 2 12917 ####[facility],[address] [place] [address] Calcium [Mass/Vol] 10.8 mg/dL High 8.5 - 10.1 [facility] Comment on above: Performed By: #### 2 12935 ####[facility],[address] [place] [address] Chloride [Moles/Vol] 104 mmol/L Normal 98 - 107 [facility] Comment on above: Performed By: #### 2 38420 ####[facility],[address] [place] [address] CO2 [Moles/Vol] 27.1 mmol/L Normal 21.0 - 32.0 [facility] Comment on above: Performed By: #### 2 07936 ####[facility],[address] [place] [address] Creatinine [Mass/Vol] 3.18 mg/dL High 0.55 - 1.02 [facility] Comment on above: Performed By: #### 2 86472 ####[facility],[address] [place] [address] Glucose [Mass/Vol] 165 mg/dL High 74 - 106 [facility] Comment on above: Performed By: #### 2 29821 ####[facility],[address] [place] [address] Phosphate [Mass/Vol] 5.8 mg/dL High 2.6 - 4.7 [facility] Comment on above: Performed By: #### 2 77016 ####[facility],[address] [place] [address] Potassium [Moles/Vol] 4.6 mmol/L Normal 3.5 - 5.1 [facility] Comment on above: Performed By: #### 2 47899 ####[facility],[address] [place] [address] 48854 RENAL FUNCTION PANEL Normal [facility] Comment on above: Result Comment: SUSAN L FUNCTION PANEL Performed By: #### 2 59472 ####[facility],[address] [place] [address] 22992 Sodium [Moles/Vol] 141 mmol/L Normal 136 - 145 [facility] Comment on above: Performed By: #### 2 55889 ####[facility],[address] [place] [address] Urea nitrogen [Mass/Vol] 78 mg/dL High 7 - 18 [facility] Comment on above: Performed By: #### 2 22350 ####[facility],[address] [place] [address] CBC + DIFFon 12-03-2024 Baso # 0.02 x10EE3/UL Normal 0.00 - 0.10 [facility] Comment on above: Performed By: #### 2 09526 ####[facility],[address] [place] [address]139 Basophils/100 WBC (Bld) 0.3 % Normal 0.0 - 2.0 [facility] Comment on above: Performed By: #### 2 63646 ####[facility],[address] [place] [address] 61476 CBC + DIFF Normal [facility] Comment on above: Result Comment: CBC- COMPLETE BLOOD COUNT Performed By: #### 2 80861 ####[facility],[address] [place] [address] EO # 0.02 x10EE3/UL Normal 0.00 - 0.50 [facility] Comment on above: Performed By: #### 2 64734 ####[facility],[address] [place], [place] [address] Eosinophils/100 WBC (Bld) 0.4 % Normal 0.0 - 7.0 [facility] Comment on above: Performed By: #### 2 90063 ####[facility],[address] [place] [address] Erythrocyte distribution width (RBC) [Ratio] 15.1 % Normal 12.0 - 15.6 [facility] Comment on above: Performed By: #### 2 69789 ####[facility],[address] [place] [address] Hematocrit (Bld) [Volume fraction] 28.9 % Low 34.0 - 46.0 [facility] Comment on above: Performed By: #### 2 31086 ####[facility],[address] [place] [address] Hemoglobin (Bld) [Mass/Vol] 9.9 g/dL Low 12.0 - 16.0 [facility] Comment on above: Performed By: #### 2 02591 ####[facility],[address] [place] [address] Lymph # 1.05 x10EE3/UL Normal 0.80 - 2.80 [facility] Comment on above: Performed By: #### 2 04665 ####[facility],[address] [place], [place] [address] Lymphocytes/100 WBC (Bld) 21.4 % Normal 20.0 - 45.0 [facility] Comment on above: Performed By: #### 2 49780 ####[facility],[address] [place] [address] MANUAL DIFF N/A Normal [facility] Comment on above: Performed By: #### 2 47105 ####[facility],[address] [place], [place] [address] MCH (RBC) [Entitic mass] 31 pg Normal 27 - 33 [facility] Comment on above: Performed By: #### 2 44237 ####[facility],[address] [place] [address] MCHC 34 X10 3 Normal 32 - 36 [facility] Comment on above: Performed By: #### 2 98130 ####[facility],[address] [place] [address] MCV (RBC) [Entitic vol] 90 fL Normal 80 - 99 [facility] Comment on above: Performed By: #### 2 50294 ####[place] [address] [place] # 0.42 x10EE3/UL Normal 0.20 - 1.00 [facility] Comment on above: Performed By: #### 2 53283 ####[facility],[address] [place] [address] MONOS % 8.5 % Normal 0.0 - 10.0 [facility] Comment on above: Performed By: #### 2 00992 ####[facility],[address] [place] [address] Morphology Souleymane (Bld) [Interp] N/A Normal [facility] Comment on above: Performed By: #### 2 96328 ####[place] [address] Neut # 3.41 x10EE3/UL Normal 1.50 - 7.10 [facility] Comment on above: Performed By: #### 2 84592 ####[place] [address] Neutrophils/100 WBC (Bld) 69.4 % Normal 46.0 - 76.0 [facility] Comment on above: Performed By: #### 2 32433 ####[place] [address] PLATELET 119 x10EE3/UL Low 150 - 450 [facility] Comment on above: Performed By: #### 2 65390 ####[facility],[address] [place] [address]793 Platelet mean volume (Bld) [Entitic vol] 9.4 fL Normal 6.6 - 10.5 [facility] Comment on above: Result Comment: AUTO MATED DIFFERENTIAL Performed By: #### 2 21256 ####[facility],[address] [place] [address] RBC 3.22 x 10EE6/UL Low 4.10 - 5.30 [facility] Comment on above: Performed By: #### 2 29554 ####[facility],[address] [place] [address] 12952 WBC 4.9 x 10EE3/UL Normal 4.5 - 10.8 [facility] Comment on above: Performed By: #### 2 40148 ####[facility],[address] [place] [address] 932[address] FERRITINon 12-03-2024 Ferritin [Mass/Vol] 53 ng/mL Normal 8 - 388 [facility] Comment on above: Performed By: #### 2 46889 ####[facility],[address] [place] [address] 72813 IRON AND TIBCon 12-03-2024 %SATURATION 33 % Normal [facility] Comment on above: Performed By: #### 2 71587 ####[facility],[address] [place] [address] 28416 Iron [Mass/Vol] 104 ug/dL Normal 50 - 170 [facility] Comment on above: Performed By: #### 2 97932 ####[facility],[address] [place] [address] 55332 TIBC 313 ug/dl Normal 250 - 450 [facility] Comment on above: Performed By: #### 2 06377 ####[facility],[address] [place] [address] 71933 UIBC 209 ug/dL Normal 155 - 355 [facility] Comment on above: Performed By: #### 2 65603 ####[facility],[address] [place] [address] 96711 RENAL FUNCTION PANELon 12-03 Albumin [Mass/Vol] 3.7 g/dL Normal 3.4 - 5.0 [facility] Comment on above: Performed By: #### 2 71893 ####[facility],[address] [place] [address] 77646 B/C RATIO 27 ratio Normal 0 - 30 [facility] Comment on above: Performed By: #### 2 58569 ####[facility],[address] [place] [address] 43016 Calcium [Mass/Vol] 10.2 mg/dL High 8.5 - 10.1 [facility] Comment on above: Performed By: #### 2 37521 ####[facility],[address] [place] [address] 77833 Chloride [Moles/Vol] 101 mmol/L Normal 98 - 107 [facility] Comment on above: Performed By: #### 2 12095 ####[facility],[address] [place] [address] 84867 CO2 [Moles/Vol] 28.8 mmol/L Normal 21.0 - 32.0 [facility] Comment on above: Performed By: #### 2 07204 ####[facility],[address] [place] [address] 49056 Creatinine [Mass/Vol] 3.01 mg/dL High 0.55 - 1.02 [facility] Comment on above: Performed By: #### 2 19871 ####[facility],[address] [place] [address] 74233 Glucose [Mass/Vol] 170 mg/dL High 74 - 106 [facility] Comment on above: Performed By: #### 2 83526 ####[facility],[address] [place] [address] 12645 Phosphate [Mass/Vol] 4.7 mg/dL Normal 2.6 - 4.7 [facility] Comment on above: Performed By: #### 2 35182 ####[facility],[address] [place] [address] 51774 Potassium [Moles/Vol] 4.7 mmol/L Normal 3.5 - 5.1 [facility] Comment on above: Performed By: #### 2 84175 ####[facility],[address] [place] [address] 28861 RENAL FUNCTION PANEL Normal [facility] Comment on above: Result Comment: SUSAN L FUNCTION PANEL Performed By: #### 2 59660 ####[facility],[address] [place] [address] 06047 Sodium [Moles/Vol] 138 mmol/L Normal 136 - 145 [facility] Comment on above: Performed By: #### 2 78339 ####[facility],[address] [place] [address] 97697 Urea nitrogen [Mass/Vol] 81 mg/dL High 7 - 18 [facility] Comment on above: Performed By: #### 2 54622 ####[facility],[address] [place] [address] 32033 CBC + DIFFon 11-06-2024 Baso # 0.02 x10EE3/UL Normal 0.00 - 0.10 [facility] Comment on above: Performed By: #### 2 92202 ####[facility],[address] [place] [address] 61994 Basophils/100 WBC (Bld) 0.5 % Normal 0.0 - 2.0 [facility] Comment on above: Performed By: #### 2 57041 ####[facility],[address] [place] [address] 25407 CBC + DIFF Normal [facility] Comment on above: Result Comment: CBC- COMPLETE BLOOD COUNT Performed By: #### 2 68750 ####[place] [address] EO # 0.03 x10EE3/UL Normal 0.00 - 0.50 [facility] Comment on above: Performed By: #### 2 79298 ####[place] [address] Eosinophils/100 WBC (Bld) 0.5 % Normal 0.0 - 7.0 [facility] Comment on above: Performed By: #### 2 23133 ####[place] [address] Erythrocyte distribution width (RBC) [Ratio] 14.6 % Normal 12.0 - 15.6 [facility] Comment on above: Performed By: #### 2 19629 ####[place] [address] Hematocrit (Bld) [Volume fraction] 27.9 % Low 34.0 - 46.0 [facility] Comment on above: Performed By: #### 2 33216 ####[place] [address] Hemoglobin (Bld) [Mass/Vol] 9.0 g/dL Low 12.0 - 16.0 [facility] Comment on above: Performed By: #### 2 90986 ####[place] [id number] Lymph # 1.16 x10EE3/UL Normal 0.80 - 2.80 [facility] Comment on above: Performed By: #### 2 73761 ####[place] [address] Lymphocytes/100 WBC (Bld) 23.3 % Normal 20.0 - 45.0 [facility] Comment on above: Performed By: #### 2 94005 ####[address] [place] [address] MANUAL DIFF N/A Normal [facility] Comment on above: Performed By: #### 2 29903 ####[facility],[address] [place] [address] MCH (RBC) [Entitic mass] 29 pg Normal 27 - 33 [facility] Comment on above: Performed By: #### 2 36045 ####[place] [address] MCHC 32 X10 3 Normal 32 - 36 [facility] Comment on above: Performed By: #### 2 70232 ####[place] [address] MCV (RBC) [Entitic vol] 90 fL Normal 80 - 99 [facility] Comment on above: Performed By: #### 2 49510 ####[place] [address] [place] # 0.48 x10EE3/UL Normal 0.20 - 1.00 [facility] Comment on above: Performed By: #### 2 64715 ####[place] [address] MONOS % 9.7 % Normal 0.0 - 10.0 [facility] Comment on above: Performed By: #### 2 77575 ####[facility],[address] [place] [address] Morphology Souleymane (Bld) [Interp] N/A Normal [facility] Comment on above: Performed By: #### 2 52913 ####[place] [address] Neut # 3.31 x10EE3/UL Normal 1.50 - 7.10 [facility] Comment on above: Performed By: #### 2 29287 ####[place] [address] Neutrophils/100 WBC (Bld) 66.1 % Normal 46.0 - 76.0 [facility] Comment on above: Performed By: #### 2 98526 ####[facility],[address] [place] [address] PLATELET 118 x10EE3/UL Low 150 - 450 [facility] Comment on above: Performed By: #### 2 23473 ####[facility],[address] [place] [address] Platelet mean volume (Bld) [Entitic vol] 9.1 fL Normal 6.6 - 10.5 [facility] Comment on above: Result Comment: AUTO MATED DIFFERENTIAL Performed By: #### 2 69574 ####[facility],[address] [place] [address] RBC 3.09 x 10EE6/UL Low 4.10 - 5.30 [facility] Comment on above: Performed By: #### 2 06706 ####[facility],[address] [place] [address] WBC 5.0 x 10EE3/UL Normal 4.5 - 10.8 [facility] Comment on above: Performed By: #### 2 60294 ####[facility],[address] [place] [address] FERRITINon 11-04-2024 Ferritin [Mass/Vol] 62 ng/mL Normal 8 - 388 [facility] Comment on above: Performed By: #### 2 14232 ####[facility],[address] [place], [place] [address] IRON AND TIBCon 11-04-2024 %SATURATION 27 % Normal [facility] Comment on above: Performed By: #### 2 73631 ####[facility],[address] [place], [place] [address] Iron [Mass/Vol] 92 ug/dL Normal 50 - 170 [facility] Comment on above: Performed By: #### 2 16650 ####[facility],[address],[place] [address] TIBC 335 ug/dl Normal 250 - 450 [facility] Comment on above: Performed By: #### 2 85428 ####[facility],[address] [place] [address] 65024 UIBC 243 ug/dL Normal 155 - 355 [facility] Comment on above: Performed By: #### 2 40432 ####[facility],[address] [place] [address] 57480 RENAL FUNCTION PANELon 11-04 Albumin [Mass/Vol] 3.5 g/dL Normal 3.4 - 5.0 [facility] Comment on above: Performed By: #### 2 06379 ####[facility],[address] [place], [place] [address] B/C RATIO 28 ratio Normal 0 - 30 [facility] Comment on above: Performed By: #### 2 67545 ####[facility],[address] [place] [address] 52514 Calcium [Mass/Vol] 10.0 mg/dL Normal 8.5 - 10.1 [facility] Comment on above: Performed By: #### 2 36403 ####[facility],[address] [place] [address] 07358 Chloride [Moles/Vol] 102 mmol/L Normal 98 - 107 [facility] Comment on above: Performed By: #### 2 28576 ####[facility],[address] [place] [address] 14277 CO2 [Moles/Vol] 28.3 mmol/L Normal 21.0 - 32.0 [facility] Comment on above: Performed By: #### 2 26906 ####[facility],[address] [place] [address] 96908 Creatinine [Mass/Vol] 2.72 mg/dL High 0.55 - 1.02 [facility] Comment on above: Performed By: #### 2 58936 ####[facility],[address] [place] [address] 39639 Glucose [Mass/Vol] 140 mg/dL High 74 - 106 [facility] Comment on above: Performed By: #### 2 44292 ####[facility],[address] [place] [address] 07533 Phosphate [Mass/Vol] 4.2 mg/dL Normal 2.6 - 4.7 [facility] Comment on above: Performed By: #### 2 99848 ####[facility],[address] [place] [address] 90772 Potassium [Moles/Vol] 4.6 mmol/L Normal 3.5 - 5.1 [facility] Comment on above: Performed By: #### 2 88883 ####[facility],[address] [place] [address] 82797 RENAL FUNCTION PANEL Normal [facility] Comment on above: Result Comment: SUSAN L FUNCTION PANEL Performed By: #### 2 26364 ####[facility],[address] [place] [address] 68967 Sodium [Moles/Vol] 141 mmol/L Normal 136 - 145 [facility] Comment on above: Performed By: #### 2 88222 ####[facility],[address] [place] [address] 09187 Urea nitrogen [Mass/Vol] 77 mg/dL High 7 - 18 [facility] Comment on above: Performed By: #### 2 67750 ####[facility],[address] [place] [address] 63431 PTH, INTACT [CCL]on 10-09-20 24 PTH, Intact 120 pg/mL High 15-65 [facility] Comment on above: Result Comment: [facility] [place], [place] [address]ZjxbdsJose A Black III, M.D.[id number] Performed By: #### 2 29345 ####[facility],[address] [place] [address] 04997 CBC + DIFFon 10-08-2024 Baso # 0.03 x10EE3/UL Normal 0.00 - 0.10 [facility] Comment on above: Performed By: #### 2 48712 ####[facility],[address] [place] [address] 53040 Basophils/100 WBC (Bld) 0.6 % Normal 0.0 - 2.0 [facility] Comment on above: Performed By: #### 2 61132 ####[facility],[address] [place] [address] 93644 CBC + DIFF Normal [facility] Comment on above: Result Comment: CBC- COMPLETE BLOOD COUNT Performed By: #### 2 70086 ####[facility],[address] [place] [address] 28213 EO # 0.02 x10EE3/UL Normal 0.00 - 0.50 [facility] Comment on above: Performed By: #### 2 01248 ####[facility],[address] [place] [address] 00133 Eosinophils/100 WBC (Bld) 0.4 % Normal 0.0 - 7.0 [facility] Comment on above: Performed By: #### 2 88411 ####[facility],[address] [place] [address] 25995 Erythrocyte distribution width (RBC) [Ratio] 14.6 % Normal 12.0 - 15.6 [facility] Comment on above: Performed By: #### 2 91050 ####[facility],[address] [place] [address] 09660 Hematocrit (Bld) [Volume fraction] 31.6 % Low 34.0 - 46.0 [facility] Comment on above: Performed By: #### 2 32492 ####[facility],[address] [place] [address] 16745 Hemoglobin (Bld) [Mass/Vol] 10.1 g/dL Low 12.0 - 16.0 [facility] Comment on above: Performed By: #### 2 72853 ####[facility],[address] [place] [address] Lymph # 1.11 x10EE3/UL Normal 0.80 - 2.80 [facility] Comment on above: Performed By: #### 2 90822 ####[facility],[address] [place], [place] [address] Lymphocytes/100 WBC (Bld) 19.9 % Low 20.0 - 45.0 [facility] Comment on above: Performed By: #### 2 55494 ####[facility],[address] [place], [place] [address] MANUAL DIFF N/A Normal [facility] Comment on above: Performed By: #### 2 06241 ####[facility],[address] [place] [address] MCH (RBC) [Entitic mass] 29 pg Normal 27 - 33 [facility] Comment on above: Performed By: #### 2 40591 ####[facility],[address] [place] [address] 81846 MCHC 32 X10 3 Normal 32 - 36 [facility] Comment on above: Performed By: #### 2 53653 ####[facility],[address] [place], [place] [address] MCV (RBC) [Entitic vol] 91 fL Normal 80 - 99 [facility] Comment on above: Performed By: #### 2 52202 ####[facility],[address] [place] [address] 20470 [place] # 0.45 x10EE3/UL Normal 0.20 - 1.00 [facility] Comment on above: Performed By: #### 2 27252 ####[facility],[address] [place] [address] 60878 MONOS % 8.1 % Normal 0.0 - 10.0 [facility] Comment on above: Performed By: #### 2 90188 ####[facility],[address] [place] [address] 50450 Morphology Souleymane (Bld) [Interp] N/A Normal [facility] Comment on above: Performed By: #### 2 12212 ####[facility],[address] [place] [address] 75282 Neut # 3.94 x10EE3/UL Normal 1.50 - 7.10 [facility] Comment on above: Performed By: #### 2 93152 ####[facility],[address] [place] [address] 69454 Neutrophils/100 WBC (Bld) 70.9 % Normal 46.0 - 76.0 [facility] Comment on above: Performed By: #### 2 32732 ####[address] [address] PLATELET 153 x10EE3/UL Normal 150 - 450 [facility] Comment on above: Performed By: #### 2 06845 ####[facility],[address] [place] [address] 48712 Platelet mean volume (Bld) [Entitic vol] 9.0 fL Normal 6.6 - 10.5 [facility] Comment on above: Result Comment: AUTO MATED DIFFERENTIAL Performed By: #### 2 22489 ####[facility],[address] [place] [address] 06737 RBC 3.48 x 10EE6/UL Low 4.10 - 5.30 [facility] Comment on above: Performed By: #### 2 66153 ####[facility],[address] [place] [address] 94266 WBC 5.6 x 10EE3/UL Normal 4.5 - 10.8 [facility] Comment on above: Performed By: #### 2 84711 ####[address] [address] FERRITINon 10-08-2024 Ferritin [Mass/Vol] 85 ng/mL Normal 8 - 388 [facility] Comment on above: Performed By: #### 2 58945 ####[facility],[address] [place] [address] 07052 IRON AND TIBCon 10-08-2024 %SATURATION 30 % Normal [facility] Comment on above: Performed By: #### 2 52108 ####[facility],[address] [place] [address] 66266 Iron [Mass/Vol] 92 ug/dL Normal 50 - 170 [facility] Comment on above: Performed By: #### 2 93023 ####[facility],[address] [place] [address] 61828 TIBC 310 ug/dl Normal 250 - 450 [facility] Comment on above: Performed By: #### 2 76491 ####[facility],[address] [place] [address] 92214 UIBC 218 ug/dL Normal 155 - 355 [facility] Comment on above: Performed By: #### 2 04096 ####[facility],[address] [place] [address] 93890 [facility]- Parathyrin.intact [Mass/Vol] 120 pg/mL High 15-65 [facility] Comment on above: Order Comment: Speci men Type: BLOOD SPECIMEN Ordering Facility: [facility] Address: [address] [place], [place] [id number] Performed By: #### 2 731-8 #### [facility] CLIA [id number] [address] [place] [address] [place] RENAL FUNCTION PANELon 10-08 Albumin [Mass/Vol] 3.8 g/dL Normal 3.4 - 5.0 [facility] Comment on above: Performed By: #### 2 94898 ####[facility],[address] [place] [address] 74436 B/C RATIO 25 ratio Normal 0 - 30 [facility] Comment on above: Performed By: #### 2 62005 ####[facility],[address] [place] [address] 56804 Calcium [Mass/Vol] 9.4 mg/dL Normal 8.5 - 10.1 [facility] Comment on above: Performed By: #### 2 18429 ####[facility],[address] [place] [address] 51491 Chloride [Moles/Vol] 102 mmol/L Normal 98 - 107 [facility] Comment on above: Performed By: #### 2 75323 ####[facility],[address] [place] [address] 48441 CO2 [Moles/Vol] 27.0 mmol/L Normal 21.0 - 32.0 [facility] Comment on above: Performed By: #### 2 50045 ####[facility],[address] [place] [address] 68276 Creatinine [Mass/Vol] 2.52 mg/dL High 0.55 - 1.02 [facility] Comment on above: Performed By: #### 2 35957 ####[facility],[address] [place] [address] 05098 Glucose [Mass/Vol] 171 mg/dL High 74 - 106 [facility] Comment on above: Performed By: #### 2 84342 ####[facility],[address] [place] [address] 02301 Phosphate [Mass/Vol] 4.7 mg/dL Normal 2.6 - 4.7 [facility] Comment on above: Performed By: #### 2 78251 ####[facility],[address] [place] [address] 94818 Potassium [Moles/Vol] 5.0 mmol/L Normal 3.5 - 5.1 [facility] Comment on above: Performed By: #### 2 83654 ####[facility],[address] [place] [address] RENAL FUNCTION PANEL Normal [facility] Comment on above: Result Comment: SUSAN L FUNCTION PANEL Performed By: #### 2 68223 ####[facility],[address] [place], [place] [address] Sodium [Moles/Vol] 140 mmol/L Normal 136 - 145 [facility] Comment on above: Performed By: #### 2 04678 ####[facility],[address] [place] [address] Urea nitrogen [Mass/Vol] 62 mg/dL High 7 - 18 [facility] Comment on above: Performed By: #### 2 81441 ####[facility],[address] [place] [address] CBC + DIFFon 09-10-2024 Baso # 0.05 x10EE3/UL Normal 0.00 - 0.10 [facility] Comment on above: Performed By: #### 2 03469 ####[facility],[address] [place] [address] 79337 Basophils/100 WBC (Bld) 0.8 % Normal 0.0 - 2.0 [facility] Comment on above: Performed By: #### 2 29389 ####[facility],[address] [place] [address] 87662 CBC + DIFF Normal [facility] Comment on above: Result Comment: CBC- COMPLETE BLOOD COUNT Performed By: #### 2 10077 ####[facility],[address] [place] [address] 48456 EO # 0.04 x10EE3/UL Normal 0.00 - 0.50 [facility] Comment on above: Performed By: #### 2 60033 ####[facility],[address] [place] [address] 38885 Eosinophils/100 WBC (Bld) 0.7 % Normal 0.0 - 7.0 [facility] Comment on above: Performed By: #### 2 05071 ####[facility],[address] [place] [address] 17143 Erythrocyte distribution width (RBC) [Ratio] 14.0 % Normal 12.0 - 15.6 [facility] Comment on above: Performed By: #### 2 99667 ####[facility],[address] [place] [address] 58452 Hematocrit (Bld) [Volume fraction] 28.6 % Low 34.0 - 46.0 [facility] Comment on above: Performed By: #### 2 98410 ####[facility],[address] [place] [address] Hemoglobin (Bld) [Mass/Vol] 9.4 g/dL Low 12.0 - 16.0 [facility] Comment on above: Performed By: #### 2 57784 ####[facility],[address] [place], [place] [address] Lymph # 1.12 x10EE3/UL Normal 0.80 - 2.80 [facility] Comment on above: Performed By: #### 2 96953 ####[facility],[address] [place], [place] [address] Lymphocytes/100 WBC (Bld) 19.0 % Low 20.0 - 45.0 [facility] Comment on above: Performed By: #### 2 88600 ####[facility],[address] [place] [address] 40780 MANUAL DIFF N/A Normal [facility] Comment on above: Performed By: #### 2 41680 ####[facility],[address] [place] [address] 78911 MCH (RBC) [Entitic mass] 30 pg Normal 27 - 33 [facility] Comment on above: Performed By: #### 2 43018 ####[facility],[address] [place] [address] 71110 MCHC 33 X10 3 Normal 32 - 36 [facility] Comment on above: Performed By: #### 2 20016 ####[facility],[address] [place] [address] 56632 MCV (RBC) [Entitic vol] 91 fL Normal 80 - 99 [facility] Comment on above: Performed By: #### 2 95721 ####[facility],[address] [place] [address] 57913 [place] # 0.45 x10EE3/UL Normal 0.20 - 1.00 [facility] Comment on above: Performed By: #### 2 43722 ####[facility],[address] [place] [address] 14749 MONOS % 7.6 % Normal 0.0 - 10.0 [facility] Comment on above: Performed By: #### 2 09552 ####[facility],[address] [place] [address] 97595 Morphology Souleymane (Bld) [Interp] N/A Normal [facility] Comment on above: Performed By: #### 2 77132 ####[facility],[address] [place] [address] 27414 Neut # 4.24 x10EE3/UL Normal 1.50 - 7.10 [facility] Comment on above: Performed By: #### 2 66741 ####[facility],[address] [place] [address] 17096 Neutrophils/100 WBC (Bld) 71.9 % Normal 46.0 - 76.0 [facility] Comment on above: Performed By: #### 2 48529 ####[facility],[address] [place] [address] 91412 PLATELET 140 x10EE3/UL Low 150 - 450 [facility] Comment on above: Performed By: #### 2 09881 ####[facility],[address] [place] [address] 53274 Platelet mean volume (Bld) [Entitic vol] 9.1 fL Normal 6.6 - 10.5 [facility] Comment on above: Result Comment: AUTO MATED DIFFERENTIAL Performed By: #### 2 02235 ####[facility],[address] [place] [address] 50269 RBC 3.15 x 10EE6/UL Low 4.10 - 5.30 [facility] Comment on above: Performed By: #### 2 55362 ####[facility],[address] [place] [address] 00168 WBC 5.9 x 10EE3/UL Normal 4.5 - 10.8 [facility] Comment on above: Performed By: #### 2 25046 ####[facility],[address] [place] [address] 12654 FERRITINon 09-10-2024 Ferritin [Mass/Vol] 101 ng/mL Normal 8 - 388 [facility] Comment on above: Performed By: #### 2 19205 ####[facility],[address] [place] [address] 04730 IRON AND TIBCon 09-10-2024 %SATURATION 29 % Normal [facility] Comment on above: Performed By: #### 2 58584 ####[facility],[address] [place] [address] 95796 Iron [Mass/Vol] 81 ug/dL Normal 50 - 170 [facility] Comment on above: Performed By: #### 2 72665 ####[facility],[address] [place] [address] 87934 TIBC 275 ug/dl Normal 250 - 450 [facility] Comment on above: Performed By: #### 2 17974 ####[facility],[address] [place] [address] 48722 UIBC 194 ug/dL Normal 155 - 355 [facility] Comment on above: Performed By: #### 2 94753 ####[facility],[address] [place] [address] 02691 RENAL FUNCTION PANELon 09-10 Albumin [Mass/Vol] 3.5 g/dL Normal 3.4 - 5.0 [facility] Comment on above: Performed By: #### 2 61815 ####[facility],[address] [place] [address] 34807 B/C RATIO 29 ratio Normal 0 - 30 [facility] Comment on above: Performed By: #### 2 06864 ####[facility],[address] [place] [address] 57542 Calcium [Mass/Vol] 9.3 mg/dL Normal 8.5 - 10.1 [facility] Comment on above: Performed By: #### 2 14648 ####[facility],[address] [place] [address] 62652 Chloride [Moles/Vol] 102 mmol/L Normal 98 - 107 [facility] Comment on above: Performed By: #### 2 65474 ####[facility],[address] [place] [address] 13853 CO2 [Moles/Vol] 26.5 mmol/L Normal 21.0 - 32.0 [facility] Comment on above: Performed By: #### 2 60054 ####[facility],[address] [place] [address] 03016 Creatinine [Mass/Vol] 2.70 mg/dL High 0.55 - 1.02 [facility] Comment on above: Performed By: #### 2 29785 ####[facility],[address] [place] [address] 22592 Glucose [Mass/Vol] 185 mg/dL High 74 - 106 [facility] Comment on above: Performed By: #### 2 90219 ####[facility],[address] [place] [address] 04163 Phosphate [Mass/Vol] 4.6 mg/dL Normal 2.6 - 4.7 [facility] Comment on above: Performed By: #### 2 52122 ####[facility],[address] [place] [address] 08341 Potassium [Moles/Vol] 5.0 mmol/L Normal 3.5 - 5.1 [facility] Comment on above: Performed By: #### 2 68921 ####[facility],[address] [place] [address] RENAL FUNCTION PANEL Normal [facility] Comment on above: Result Comment: SUSAN L FUNCTION PANEL Performed By: #### 2 91410 ####[facility],[address] [place] [address] Sodium [Moles/Vol] 140 mmol/L Normal 136 - 145 [facility] Comment on above: Performed By: #### 2 32878 ####[facility],[address] [place] [address] Urea nitrogen [Mass/Vol] 78 mg/dL High 7 - 18 [facility] Comment on above: Performed By: #### 2 32652 ####[facility],[address] [place] [address] CBC + DIFFon 08-20-2024 Baso # 0.02 x10EE3/UL Normal 0.00 - 0.10 [facility] Comment on above: Performed By: #### 2 38083 ####[facility],[address] [place] [address] 28413 Basophils/100 WBC (Bld) 0.5 % Normal 0.0 - 2.0 [facility] Comment on above: Performed By: #### 2 37950 ####[facility],[address] [place] [address] CBC + DIFF Normal [facility] Comment on above: Result Comment: CBC- COMPLETE BLOOD COUNT Performed By: #### 2 38710 ####[facility],[address] [place] [address] EO # 0.06 x10EE3/UL Normal 0.00 - 0.50 [facility] Comment on above: Performed By: #### 2 98267 ####[facility],[address] [place] [address] 87882 Eosinophils/100 WBC (Bld) 1.2 % Normal 0.0 - 7.0 [facility] Comment on above: Performed By: #### 2 07765 ####[facility],[address] [place], [place] [address] Erythrocyte distribution width (RBC) [Ratio] 14.9 % Normal 12.0 - 15.6 [facility] Comment on above: Performed By: #### 2 95005 ####[facility],[address] [place] [address] Hematocrit (Bld) [Volume fraction] 28.2 % Low 34.0 - 46.0 [facility] Comment on above: Performed By: #### 2 15001 ####[facility],[address] [place] [address] Hemoglobin (Bld) [Mass/Vol] 9.3 g/dL Low 12.0 - 16.0 [facility] Comment on above: Performed By: #### 2 45474 ####[facility],[address] [place] [address] 37201 Lymph # 1.05 x10EE3/UL Normal 0.80 - 2.80 [facility] Comment on above: Performed By: #### 2 89995 ####[facility],[address] [place], [place] [address] Lymphocytes/100 WBC (Bld) 21.7 % Normal 20.0 - 45.0 [facility] Comment on above: Performed By: #### 2 78636 ####[facility],[address] [place] [address] 39590 MANUAL DIFF N/A Normal [facility] Comment on above: Performed By: #### 2 80753 ####[facility],[address] [place] [address] 15727 MCH (RBC) [Entitic mass] 30 pg Normal 27 - 33 [facility] Comment on above: Performed By: #### 2 74429 ####[facility],[address] [place] [address] 72261 MCHC 33 X10 3 Normal 32 - 36 [facility] Comment on above: Performed By: #### 2 10215 ####[facility],[address] [place] [address] 60974 MCV (RBC) [Entitic vol] 92 fL Normal 80 - 99 [facility] Comment on above: Performed By: #### 2 32141 ####[facility],[address] [place] [address] [place] # 0.49 x10EE3/UL Normal 0.20 - 1.00 [facility] Comment on above: Performed By: #### 2 60240 ####[facility],[address] [place] [address] MONOS % 10.1 % High 0.0 - 10.0 [facility] Comment on above: Performed By: #### 2 56987 ####[facility],[address] [place], [place] [address] Morphology Souleymane (Bld) [Interp] N/A Normal [facility] Comment on above: Performed By: #### 2 59976 ####[facility],[address] [place] [address] Neut # 3.23 x10EE3/UL Normal 1.50 - 7.10 [facility] Comment on above: Performed By: #### 2 05035 ####[facility],[address] [place] [address] Neutrophils/100 WBC (Bld) 66.6 % Normal 46.0 - 76.0 [facility] Comment on above: Performed By: #### 2 02972 ####[facility],[address] [place], [place] [address] PLATELET 128 x10EE3/UL Low 150 - 450 [facility] Comment on above: Performed By: #### 2 96033 ####[facility],[address] [place] [address] 12663 Platelet mean volume (Bld) [Entitic vol] 9.2 fL Normal 6.6 - 10.5 [facility] Comment on above: Result Comment: AUTO MATED DIFFERENTIAL Performed By: #### 2 52167 ####[facility],[address] [place] [address] 26204 RBC 3.07 x 10EE6/UL Low 4.10 - 5.30 [facility] Comment on above: Performed By: #### 2 84567 ####[facility],[address] [place] [address] 99601 WBC 4.9 x 10EE3/UL Normal 4.5 - 10.8 [facility] Comment on above: Performed By: #### 2 20751 ####[facility],[address] [place] [address] 59870 CMP with eGFRon 08-20-2024 AGE 83 years Normal [facility] Comment on above: Performed By: #### 2 20371 ####[facility],[address] [place] [address] 55558 Albumin [Mass/Vol] 3.3 g/dL Low 3.4 - 5.0 [facility] Comment on above: Performed By: #### 2 93631 ####[facility],[address] [place] [address] 34438 Albumin/Globulin [Mass ratio] 1.0 {ratio} Normal 0.9 - 1.6 [facility] Comment on above: Performed By: #### 2 30056 ####[facility],[address] [place] [address] 17876 ALK PHOS 68 U/L Normal 46 - 116 [facility] Comment on above: Performed By: #### 2 54856 ####[facility],[address] [place] [address] 94515 ALT [Catalytic activity/Vol] 22 U/L Normal 16 - 63 [facility] Comment on above: Performed By: #### 2 39190 ####[facility],[address] [place] [address] 66630 Anion gap [Moles/Vol] 15 mmol/L Normal 10 - 20 [facility] Comment on above: Performed By: #### 2 11805 ####[facility],[address] [place] [address] 23086 AST [Catalytic activity/Vol] 20 U/L Normal 13 - 39 [facility] Comment on above: Performed By: #### 2 71235 ####[facility],[address] [place] [address] 33402 B/C RATIO 27 ratio Normal 0 - 30 [facility] Comment on above: Performed By: #### 2 21126 ####[facility],[address] [place] [address] 91264 Bilirubin [Mass/Vol] 0.5 mg/dL Normal 0.2 - 1.0 [facility] Comment on above: Performed By: #### 2 59073 ####[facility],[address] [place] [address] 13391 Calcium [Mass/Vol] 8.7 mg/dL Normal 8.5 - 10.1 [facility] Comment on above: Performed By: #### 2 57663 ####[facility],[address] [place] [address] 53836 Chloride [Moles/Vol] 103 mmol/L Normal 98 - 107 [facility] Comment on above: Performed By: #### 2 82441 ####[facility],[address] [place] [address] 74087 CMP with eGFR Normal [facility] Comment on above: Result Comment: COMP REHENSIVE METABOLIC PANEL Performed By: #### 2 25974 ####[facility],[address] [place] [address] 15428 CO2 [Moles/Vol] 27.3 mmol/L Normal 21.0 - 32.0 [facility] Comment on above: Performed By: #### 2 85918 ####[facility],[address] [place] [address] 77451 Creatinine [Mass/Vol] 2.47 mg/dL High 0.55 - 1.02 [facility] Comment on above: Performed By: #### 2 81360 ####[facility],[address] [place] [address] 48928 eGFR 19 ML/MINUTE Low 60 - 999 [facility] Comment on above: Performed By: #### 2 29835 ####[facility],[address] [place] [address] 77456 eGFR(AA) 23 ML/MINUTE Low 60 - 999 [facility] Comment on above: Result Comment: ACCO RDING TO THE NATIONAL KIDNEY DISEASE EDUCATION PROGRAM(NKDE), A NORMAL eGFRIS A VALUE GREATER THAN OR EQUAL TO 60 ML/MIN/1.73 SQ METERS.CHRONIC KIDNEY DISEASE: <60mL/MIN/1.73 SQ METERSKIDNEY FAILURE: <15mL/MIN/1.73 SQ METERSTHIS TEST SHOULD ONLY BE USED FOR PATIENTS 18 YEARS OF AGE AND OLDER. Performed By: #### 2 65445 ####[facility],[address] [place] [address] 04836 Globulin (S) [Mass/Vol] 3.3 g/dL Normal 1.5 - 3.8 [facility] Comment on above: Performed By: #### 2 04003 ####[facility],[address] [place] [address] 83962 Glucose [Mass/Vol] 132 mg/dL High 74 - 106 [facility] Comment on above: Performed By: #### 2 07987 ####[facility],[address] [place] [address] 43553 Potassium [Moles/Vol] 5.3 mmol/L High 3.5 - 5.1 [facility] Comment on above: Performed By: #### 2 22117 ####[facility] [place] [address] 75824 Protein [Mass/Vol] 6.6 g/dL Normal 6.4 - 8.2 [facility] Comment on above: Performed By: #### 2 04918 ####[facility],[address] [place] [address] 21237 Sodium [Moles/Vol] 140 mmol/L Normal 136 - 145 [facility] Comment on above: Performed By: #### 2 49571 ####[facility],[address] [place] [address] 58658 Urea nitrogen [Mass/Vol] 66 mg/dL High 7 - 18 [facility] Comment on above: Performed By: #### 2 30063 ####[facility],[address] [place] [address] 09972 FERRITINon 08-20-2024 Ferritin [Mass/Vol] 76 ng/mL Normal 8 - 388 [facility] Comment on above: Performed By: #### 2 68451 ####[facility],[address] [place] [address] 95178 HEMOGLOBIN A1C (POM)on 08-20 Glucose [Mass/Vol] 111.2 mg/dL High 0.0 - 0.0 [facility] Comment on above: Result Comment: BLDo HEMOGLOBIN A1C REFERENCE RANGESBLDo Suggested Diagnosis HbA1c(%) HbA1C (mmol/mol Diabetic >/=6.5 >/=48 Prediabetes 5.7 - 6.4 39 - 47 Normal <5.7 <39 Performed By: #### 2 17697 ####[facility],[address] [place] [address] 25642 HbA1c (Bld) [Mass fraction] 5.5 % Normal 0.0 - 6.5 [facility] Comment on above: Performed By: #### 2 57381 ####[facility],[address] [place] [address] 09925 IRON AND TIBCon 08-20-2024 %SATURATION 24 % Normal [facility] Comment on above: Performed By: #### 2 65986 ####[facility],[address] [place] [address] 60426 Iron [Mass/Vol] 62 ug/dL Normal 50 - 170 [facility] Comment on above: Performed By: #### 2 79432 ####[facility],[address] [place] [address] 38268 TIBC 260 ug/dl Normal 250 - 450 [facility] Comment on above: Performed By: #### 2 14917 ####[facility],[address] [place] [address] 62791 UIBC 198 ug/dL Normal 155 - 355 [facility] Comment on above: Performed By: #### 2 03602 ####[facility],[address] [place] [address] 97609 LIPID PROFILEon 08-20-2024 Cholesterol [Mass/Vol] 123 mg/dL Normal 0 - 240 [facility] Comment on above: Performed By: #### 2 59696 ####[facility],[address] [place] [address] 02294 Cholesterol in HDL [Mass/Vol] 38 mg/dL Low 40 - 60 [facility] Comment on above: Performed By: #### 2 51881 ####[facility],[address] [place] [address] 06334 Cholesterol in LDL [Mass/Vol] 67 mg/dL Normal 0 - 129 [facility] Comment on above: Performed By: #### 2 66813 ####[facility],[address] [place] [address] 45435 Cholesterol.total/Jyothi sterol in HDL [Mass ratio] 3.2 {ratio} Normal 0.0 - 5.0 [facility] Comment on above: Performed By: #### 2 06836 ####[facility],[address] [place] [address] 65092 Lipid 1996 panel Normal [facility] Comment on above: Result Comment: LIPI D PROFILE Performed By: #### 2 71125 ####[facility],[address] [place] [address] 71607 Triglyceride [Mass/Vol] 88 mg/dL Normal 0 - 150 [facility] Comment on above: Performed By: #### 2 55233 ####[facility],[address] [place] [address] 79659 TSHon 08-20-2024 TSH Qn 1.64 m[IU]/L Normal 0.35 - 3.74 [facility] Comment on above: Performed By: #### 2 21457 ####[facility],[address] [place] [address] 87709 URIC ACIDon 08-20-2024 Urate [Mass/Vol] 9.2 mg/dL High 2.6 - 6.0 [facility] Comment on above: Performed By: #### 2 77332 ####[address] [address] VITAMIN D, 25 HYDROXYon 08-05 VitD 37.50 ng/mL Normal 30.00 - 100 [facility] Comment on above: Result Comment: 25-O HD3 indicates both endogenous production and supplementation. 25-OHD2 is anindicator of exogenous sources, such as diet or supplementation. Therapy isbased on measurement of Total 25-OHD, with levels <20 ng/mL indicative ofVitamin D deficiency, while levels between 20 ng/mL and 30 ng/mL suggestinsufficiency. Optimal levels are >=30ng/mL.Vitamin D, 25-OH D3 Not EstablishedVitamin D, 25-OH D2 Not Established Performed By: #### 2 09663 ####[address] [address] PTH, INTACT [CCL]on 07-24-20 24 PTH, Intact 94 pg/mL High 15-65 [facility] Comment on above: Result Comment: [facility] [place], [place] [address]EnarncJose A Black III, M.D.[id number] Performed By: #### 2 71138 ####[facility],[address] [place] [address] 04839 BMP with eGFRon 07-23-2024 AGE 83 years Normal [facility] Comment on above: Performed By: #### 2 40235 ####[facility],[address] [place] [address] 28763 Anion gap [Moles/Vol] 14 mmol/L Normal 10 - 20 [facility] Comment on above: Performed By: #### 2 84997 ####[facility],[address] [place] [address] 59354 BMP with eGFR Normal [facility] Comment on above: Result Comment: BASI C METABOLIC PANEL Performed By: #### 2 51071 ####[facility],[address] [place] [address] 96587 Calcium [Mass/Vol] 8.9 mg/dL Normal 8.5 - 10.1 [facility] Comment on above: Performed By: #### 2 56658 ####[facility],[address] [place] [address] 00671 Chloride [Moles/Vol] 101 mmol/L Normal 98 - 107 [facility] Comment on above: Performed By: #### 2 31597 ####[facility],[address] [place] [address] 30086 CO2 [Moles/Vol] 28.4 mmol/L Normal 21.0 - 32.0 [facility] Comment on above: Performed By: #### 2 52075 ####[facility],[address] [place] [address] 54653 Creatinine [Mass/Vol] 2.37 mg/dL High 0.55 - 1.02 [facility] Comment on above: Performed By: #### 2 36793 ####[facility],[address] [place] [address] 91362 eGFR 20 ML/MINUTE Low 60 - 999 [facility] Comment on above: Performed By: #### 2 68193 ####[facility],[address] [place] [address] 30712 eGFR(AA) 24 ML/MINUTE Low 60 - 999 [facility] Comment on above: Result Comment: ACCO RDING TO THE NATIONAL KIDNEY DISEASE EDUCATION PROGRAM(NKDE), A NORMAL eGFRIS A VALUE GREATER THAN OR EQUAL TO 60 ML/MIN/1.73 SQ METERS.CHRONIC KIDNEY DISEASE: <60mL/MIN/1.73 SQ METERSKIDNEY FAILURE: <15mL/MIN/1.73 SQ METERSTHIS TEST SHOULD ONLY BE USED FOR PATIENTS 18 YEARS OF AGE AND OLDER. Performed By: #### 2 46473 ####[facility],[address] [place] [address] 85286 Glucose [Mass/Vol] 141 mg/dL High 74 - 106 [facility] Comment on above: Performed By: #### 2 62412 ####[facility],[address] [place] [address] 42519 Potassium [Moles/Vol] 5.2 mmol/L High 3.5 - 5.1 [facility] Comment on above: Performed By: #### 2 06388 ####[facility],[address] [place] [address] 43909 Sodium [Moles/Vol] 138 mmol/L Normal 136 - 145 [facility] Comment on above: Performed By: #### 2 72506 ####[facility],[address] [place] [address] 19212 Urea nitrogen [Mass/Vol] 65 mg/dL High 7 - 18 [facility] Comment on above: Performed By: #### 2 75658 ####[facility],[address] [place] [address] 42352 CBC + DIFFon 07-23-2024 Baso # 0.03 x10EE3/UL Normal 0.00 - 0.10 [facility] Comment on above: Performed By: #### 2 82054 ####[facility],[address] [place] [address] 55163 Basophils/100 WBC (Bld) 0.5 % Normal 0.0 - 2.0 [facility] Comment on above: Performed By: #### 2 37577 ####[facility],[address] [place], [place] [address] CBC + DIFF Normal [facility] Comment on above: Result Comment: CBC- COMPLETE BLOOD COUNT Performed By: #### 2 97306 ####[facility],[address] [place] [address] 76643 EO # 0.01 x10EE3/UL Normal 0.00 - 0.50 [facility] Comment on above: Performed By: #### 2 31464 ####[facility],[address] [place] [address] 37729 Eosinophils/100 WBC (Bld) 0.3 % Normal 0.0 - 7.0 [facility] Comment on above: Performed By: #### 2 36130 ####[facility],[address] [place] [address] Erythrocyte distribution width (RBC) [Ratio] 14.9 % Normal 12.0 - 15.6 [facility] Comment on above: Performed By: #### 2 98795 ####[facility],[address] [place], [place] [address] Hematocrit (Bld) [Volume fraction] 26.2 % Low 34.0 - 46.0 [facility] Comment on above: Performed By: #### 2 36825 ####[facility],[address] [place] [address] 53189 Hemoglobin (Bld) [Mass/Vol] 8.7 g/dL Low 12.0 - 16.0 [facility] Comment on above: Performed By: #### 2 68624 ####[facility],[address] [place] [address] 26703 Lymph # 1.18 x10EE3/UL Normal 0.80 - 2.80 [facility] Comment on above: Performed By: #### 2 49629 ####[facility],[address] [place] [address] 11168 Lymphocytes/100 WBC (Bld) 22.3 % Normal 20.0 - 45.0 [facility] Comment on above: Performed By: #### 2 96036 ####[facility],[address] [place] [address] 43011 MANUAL DIFF N/A Normal [facility] Comment on above: Performed By: #### 2 96673 ####[facility],[address] [place], [place] [address] MCH (RBC) [Entitic mass] 30 pg Normal 27 - 33 [facility] Comment on above: Performed By: #### 2 31137 ####[facility],[address] [place] [address] MCHC 33 X10 3 Normal 32 - 36 [facility] Comment on above: Performed By: #### 2 16531 ####[facility],[address] [place] [address] 37969 MCV (RBC) [Entitic vol] 90 fL Normal 80 - 99 [facility] Comment on above: Performed By: #### 2 62310 ####[facility],[address] [place] [address] 19979 [place] # 0.57 x10EE3/UL Normal 0.20 - 1.00 [facility] Comment on above: Performed By: #### 2 48533 ####[facility],[address] [place] [address] 49771 MONOS % 10.8 % High 0.0 - 10.0 [facility] Comment on above: Performed By: #### 2 19570 ####[facility],[address] [place] [address] 38851 Morphology Souleymane (Bld) [Interp] N/A Normal [facility] Comment on above: Performed By: #### 2 03140 ####[facility],[address] [place] [address] 90590 Neut # 3.51 x10EE3/UL Normal 1.50 - 7.10 [facility] Comment on above: Performed By: #### 2 59322 ####[facility],[address] [place] [address] 15621 Neutrophils/100 WBC (Bld) 66.2 % Normal 46.0 - 76.0 [facility] Comment on above: Performed By: #### 2 67579 ####[facility],[address] [place] [address] 84778 PLATELET 130 x10EE3/UL Low 150 - 450 [facility] Comment on above: Performed By: #### 2 70733 ####[facility],[address] [place] [address] 58881 Platelet mean volume (Bld) [Entitic vol] 9.4 fL Normal 6.6 - 10.5 [facility] Comment on above: Result Comment: AUTO MATED DIFFERENTIAL Performed By: #### 2 28652 ####[facility],[address] [place] [address] 10457 RBC 2.90 x 10EE6/UL Low 4.10 - 5.30 [facility] Comment on above: Performed By: #### 2 33634 ####[facility],[address] [place] [address] 59734 WBC 5.3 x 10EE3/UL Normal 4.5 - 10.8 [facility] Comment on above: Performed By: #### 2 64544 ####[facility],[address] [place] [address] 64392 PTH-Intact Lydial-sarthakon 07-06 Parathyrin.intact [Mass/Vol] 94 pg/mL High 15-65 [facility] Comment on above: Order Comment: Speci men Type: BLOOD SPECIMEN Ordering Facility: [facility] Address: [address] [place] [address] Performed By: #### 2 731-8 #### [facility] CLIA [id number] [address] [facility] [place] [address] [place] URIC ACIDon 07-23-2024 Urate [Mass/Vol] 9.0 mg/dL High 2.6 - 6.0 [facility] Comment on above: Performed By: #### 2 25065 ####[facility],[address] [place] [address] 19005 URINE CREATININE AND PROTEIN RATIOon 07-23-2024 CREATININE UR 77.20 mg/dl Normal [facility] Comment on above: Performed By: #### 2 94513 ####[facility],[address] [place] [address] 09459 PC RATIO 0.81 mg/dL Normal 0.00 - 10.00 [facility] Comment on above: Performed By: #### 2 85331 ####[facility],[address] [place] [address] 10252 Protein (U) [Mass/Vol] 62.80 mg/dL High 0.00 - 10.00 [facility] Comment on above: Performed By: #### 2 10228 ####[facility],[address] [place] [address] 73945 VITAMIN D, 25 HYDROXYon 07-06 VitD 36.00 ng/mL Normal 30.00 - 100 [facility] Comment on above: Result Comment: 25-O HD3 indicates both endogenous production and supplementation. 25-OHD2 is anindicator of exogenous sources, such as diet or supplementation. Therapy isbased on measurement of Total 25-OHD, with levels <20 ng/mL indicative ofVitamin D deficiency, while levels between 20 ng/mL and 30 ng/mL suggestinsufficiency. Optimal levels are >=30ng/mL.Vitamin D, 25-OH D3 Not EstablishedVitamin D, 25-OH D2 Not Established Performed By: #### 2 28694 ####[address] [address] CBC + DIFFon 07-16-2024 Baso # 0.03 x10EE3/UL Normal 0.00 - 0.10 [facility] Comment on above: Performed By: #### 2 50154 ####[facility],[address] [place] [address] 79600 Basophils/100 WBC (Bld) 0.5 % Normal 0.0 - 2.0 [facility] Comment on above: Performed By: #### 2 37115 ####[facility],[address] [place] [address] 31652 Basophils/100 WBC (Bld) 2.0 % Normal 0.0 - 2.0 [facility] Comment on above: Performed By: #### 2 32902 ####[facility],[address] [place] [address] 67491 CBC + DIFF Normal [facility] Comment on above: Result Comment: CBC- COMPLETE BLOOD COUNT Performed By: #### 2 25304 ####[facility],[address] [place] [address] 85387 CELL COUNT 100 Normal [facility] Comment on above: Performed By: #### 2 56851 ####[facility],[address] [place] [address] 36809 EO # 0.03 x10EE3/UL Normal 0.00 - 0.50 [facility] Comment on above: Performed By: #### 2 43478 ####[facility],[address] [place] [address] 93367 Eosinophils/100 WBC (Bld) 0.5 % Normal 0.0 - 7.0 [facility] Comment on above: Performed By: #### 2 60443 ####[facility],[address] [place] [address] 27850 Erythrocyte distribution width (RBC) [Ratio] 14.7 % Normal 12.0 - 15.6 [facility] Comment on above: Performed By: #### 2 14332 ####[facility],[address] [place] [address] 16223 Hematocrit (Bld) [Volume fraction] 30.1 % Low 34.0 - 46.0 [facility] Comment on above: Performed By: #### 2 89562 ####[facility],[address] [place] [address] 19253 Hemoglobin (Bld) [Mass/Vol] 10.2 g/dL Low 12.0 - 16.0 [facility] Comment on above: Performed By: #### 2 85645 ####[facility],[address] [place] [address] Lymph # 1.35 x10EE3/UL Normal 0.80 - 2.80 [facility] Comment on above: Performed By: #### 2 62035 ####[facility],[address] [place] [address] 05572 Lymphocytes/100 WBC (Bld) 19.4 % Low 20.0 - 45.0 [facility] Comment on above: Performed By: #### 2 97582 ####[facility],[address] [place] [address] 60610 Lymphocytes/100 WBC (Bld) 25 % Normal 20 - 45 [facility] Comment on above: Performed By: #### 2 62906 ####[facility],[address] [place] [address] 13742 MANUAL DIFF SEE BELOW Normal [facility] Comment on above: Performed By: #### 2 11301 ####[facility],[address] [place] [address] 90440 MCH (RBC) [Entitic mass] 30 pg Normal 27 - 33 [facility] Comment on above: Performed By: #### 2 86161 ####[facility],[address] [place] [address] 60541 MCHC 34 X10 3 Normal 32 - 36 [facility] Comment on above: Performed By: #### 2 88652 ####[facility],[address] [place] [address] MCV (RBC) [Entitic vol] 90 fL Normal 80 - 99 [facility] Comment on above: Performed By: #### 2 16786 ####[facility],[address] [place] [address] [place] # 0.60 x10EE3/UL Normal 0.20 - 1.00 [facility] Comment on above: Performed By: #### 2 48775 ####[facility],[address] [place] [address] MONOS 6 % Normal 0 - 10 [facility] Comment on above: Performed By: #### 2 59020 ####[facility],[address] [place] [address] MONOS % 8.5 % Normal 0.0 - 10.0 [facility] Comment on above: Performed By: #### 2 09743 ####[facility],[address] [place] [address] Morphology Souleymane (Bld) [Interp] REVIEWED Normal [facility] Comment on above: Performed By: #### 2 05740 ####[facility],[address] [place] [address] Neut # 4.98 x10EE3/UL Normal 1.50 - 7.10 [facility] Comment on above: Performed By: #### 2 30740 ####[facility],[address] [place] [address] Neutrophils/100 WBC (Bld) 71.2 % Normal 46.0 - 76.0 [facility] Comment on above: Performed By: #### 2 08376 ####[facility],[address] [place] [address] PLATELET 140 x10EE3/UL Low 150 - 450 [facility] Comment on above: Performed By: #### 2 76541 ####[facility],[address],[place] [address] Platelet mean volume (Bld) [Entitic vol] 9.0 fL Normal 6.6 - 10.5 [facility] Comment on above: Result Comment: AUTO MATED DIFFERENTIAL Performed By: #### 2 82461 ####[facility],[address] [place] [address] 02865 RBC 3.36 x 10EE6/UL Low 4.10 - 5.30 [facility] Comment on above: Performed By: #### 2 46368 ####[facility],[address] [place] [address] 15672 SEGS 67 % Normal 46 - 76 [facility] Comment on above: Performed By: #### 2 09911 ####[facility],[address] [place] [address] 94750 WBC 7.0 x 10EE3/UL Normal 4.5 - 10.8 [facility] Comment on above: Performed By: #### 2 84301 ####[facility],[address] [place] [address] 94297 FERRITINon 07-16-2024 Ferritin [Mass/Vol] 136 ng/mL Normal 8 - 388 [facility] Comment on above: Performed By: #### 2 18633 ####[facility],[address] [place] [address] 98433 IRON AND TIBCon 07-16-2024 %SATURATION 32 % Normal [facility] Comment on above: Performed By: #### 2 66160 ####[facility],[address] [place] [address] 77859 Iron [Mass/Vol] 92 ug/dL Normal 50 - 170 [facility] Comment on above: Performed By: #### 2 32290 ####[facility],[address] [place] [address] 98921 TIBC 285 ug/dl Normal 250 - 450 [facility] Comment on above: Performed By: #### 2 52699 ####[facility],[address] [place] [address] 62900 UIBC 193 ug/dL Normal 155 - 355 [facility] Comment on above: Performed By: #### 2 41372 ####[facility],[address] [place] [address] 60429 RENAL FUNCTION PANELon 07-16 Albumin [Mass/Vol] 3.8 g/dL Normal 3.4 - 5.0 [facility] Comment on above: Performed By: #### 2 36641 ####[facility],[address] [place] [address] 04771 B/C RATIO 27 ratio Normal 0 - 30 [facility] Comment on above: Performed By: #### 2 19959 ####[facility],[address] [place] [address] 59424 Calcium [Mass/Vol] 8.9 mg/dL Normal 8.5 - 10.1 [facility] Comment on above: Performed By: #### 2 45599 ####[facility],[address] [place] [address] 34854 Chloride [Moles/Vol] 99 mmol/L Normal 98 - 107 [facility] Comment on above: Performed By: #### 2 06933 ####[facility],[address] [place] [address] 55199 CO2 [Moles/Vol] 26.1 mmol/L Normal 21.0 - 32.0 [facility] Comment on above: Performed By: #### 2 98277 ####[facility],[address] [place] [address] 98526 Creatinine [Mass/Vol] 2.53 mg/dL High 0.55 - 1.02 [facility] Comment on above: Performed By: #### 2 47261 ####[facility],[address] [place] [address] 82007 Glucose [Mass/Vol] 110 mg/dL High 74 - 106 [facility] Comment on above: Performed By: #### 2 99019 ####[facility],[address] [place] [address] 52019 Phosphate [Mass/Vol] 4.5 mg/dL Normal 2.6 - 4.7 [facility] Comment on above: Performed By: #### 2 71289 ####[facility],[address] [place] [address] 82373 Potassium [Moles/Vol] 4.8 mmol/L Normal 3.5 - 5.1 [facility] Comment on above: Performed By: #### 2 36368 ####[facility],[address] [place] [address] 70903 RENAL FUNCTION PANEL Normal [facility] Comment on above: Result Comment: SUSAN L FUNCTION PANEL Performed By: #### 2 08908 ####[facility],[address] [place] [address] 53689 Sodium [Moles/Vol] 135 mmol/L Low 136 - 145 [facility] Comment on above: Performed By: #### 2 91797 ####[facility],[address] [place] [address] 97721 Urea nitrogen [Mass/Vol] 68 mg/dL High 7 - 18 [facility] Comment on above: Performed By: #### 2 90382 ####[facility],[address] [place] [address] 81079 CBC + DIFFon 06-17-2024 Baso # 0.03 x10EE3/UL Normal 0.00 - 0.10 [facility] Comment on above: Performed By: #### 2 29297 ####[facility],[address] [place] [address] 75284 Basophils/100 WBC (Bld) 0.4 % Normal 0.0 - 2.0 [facility] Comment on above: Performed By: #### 2 04340 ####[facility],[address] [place] [address] 47315 CBC + DIFF Normal [facility] Comment on above: Result Comment: CBC- COMPLETE BLOOD COUNT Performed By: #### 2 61365 ####[place] [address] EO # 0.03 x10EE3/UL Normal 0.00 - 0.50 [facility] Comment on above: Performed By: #### 2 83640 ####[place] [address] Eosinophils/100 WBC (Bld) 0.5 % Normal 0.0 - 7.0 [facility] Comment on above: Performed By: #### 2 78959 ####[place] [address] Erythrocyte distribution width (RBC) [Ratio] 13.8 % Normal 12.0 - 15.6 [facility] Comment on above: Performed By: #### 2 88235 ####[place] [address] Hematocrit (Bld) [Volume fraction] 29.7 % Low 34.0 - 46.0 [facility] Comment on above: Performed By: #### 2 42429 ####[place] [address] Hemoglobin (Bld) [Mass/Vol] 10.1 g/dL Low 12.0 - 16.0 [facility] Comment on above: Performed By: #### 2 70180 ####[place] [address] Lymph # 1.40 x10EE3/UL Normal 0.80 - 2.80 [facility] Comment on above: Performed By: #### 2 85715 ####[place] [address] Lymphocytes/100 WBC (Bld) 19.0 % Low 20.0 - 45.0 [facility] Comment on above: Performed By: #### 2 70727 ####[place] [address] MANUAL DIFF N/A Normal [facility] Comment on above: Performed By: #### 2 89455 ####[facility],[address] [place] [address] MCH (RBC) [Entitic mass] 30 pg Normal 27 - 33 [facility] Comment on above: Performed By: #### 2 33025 ####[facility],[address] [place] [address] MCHC 34 X10 3 Normal 32 - 36 [facility] Comment on above: Performed By: #### 2 10011 ####[facility],[address] [place] [address] MCV (RBC) [Entitic vol] 88 fL Normal 80 - 99 [facility] Comment on above: Performed By: #### 2 00615 ####[facility],[address] [place] [address] [place] # 0.62 x10EE3/UL Normal 0.20 - 1.00 [facility] Comment on above: Performed By: #### 2 59458 ####[facility],[address] [place] [address] MONOS % 8.4 % Normal 0.0 - 10.0 [facility] Comment on above: Performed By: #### 2 71378 ####[facility],[address] [place] [address] Morphology Souleymane (Bld) [Interp] N/A Normal [facility] Comment on above: Performed By: #### 2 17404 ####[facility],[address] [place] [address] Neut # 5.30 x10EE3/UL Normal 1.50 - 7.10 [facility] Comment on above: Performed By: #### 2 89883 ####[facility],[address] [place] [address] Neutrophils/100 WBC (Bld) 71.7 % Normal 46.0 - 76.0 [facility] Comment on above: Performed By: #### 2 09949 ####[facility],[address] [place] [address] 73264 PLATELET 140 x10EE3/UL Low 150 - 450 [facility] Comment on above: Performed By: #### 2 76808 ####[facility],[address] [place] [address] Platelet mean volume (Bld) [Entitic vol] 8.8 fL Normal 6.6 - 10.5 [facility] Comment on above: Result Comment: AUTO MATED DIFFERENTIAL Performed By: #### 2 93653 ####[facility],[address] [place] [address] RBC 3.38 x 10EE6/UL Low 4.10 - 5.30 [facility] Comment on above: Performed By: #### 2 19428 ####[facility],[address] [place], [place] [address] WBC 7.4 x 10EE3/UL Normal 4.5 - 10.8 [facility] Comment on above: Performed By: #### 2 85415 ####[facility],[address] [place] [address] FERRITINon 06-17-2024 Ferritin [Mass/Vol] 134 ng/mL Normal 8 - 388 [facility] Comment on above: Performed By: #### 2 35261 ####[facility],[address] [place], [place] [address] IRON AND TIBCon 06-17-2024 %SATURATION 32 % Normal [facility] Comment on above: Performed By: #### 2 38950 ####[facility],[address] [place] [address] 89073 Iron [Mass/Vol] 96 ug/dL Normal 50 - 170 [facility] Comment on above: Performed By: #### 2 36968 ####[facility],[address],[place] [address] TIBC 298 ug/dl Normal 250 - 450 [facility] Comment on above: Performed By: #### 2 20251 ####[facility],[address] [place] [address] 21941 UIBC 202 ug/dL Normal 155 - 355 [facility] Comment on above: Performed By: #### 2 43880 ####[facility],[address] [place] [address] 88448 RENAL FUNCTION PANELon 06-17 Albumin [Mass/Vol] 3.7 g/dL Normal 3.4 - 5.0 [facility] Comment on above: Performed By: #### 2 24577 ####[facility],[address] [place] [address] 79345 B/C RATIO 32 ratio High 0 - 30 [facility] Comment on above: Performed By: #### 2 16225 ####[facility],[address] [place] [address] 29144 Calcium [Mass/Vol] 9.1 mg/dL Normal 8.5 - 10.1 [facility] Comment on above: Performed By: #### 2 60930 ####[facility],[address] [place] [address] 48687 Chloride [Moles/Vol] 99 mmol/L Normal 98 - 107 [facility] Comment on above: Performed By: #### 2 36675 ####[facility],[address] [place] [address] 87692 CO2 [Moles/Vol] 27.2 mmol/L Normal 21.0 - 32.0 [facility] Comment on above: Performed By: #### 2 17970 ####[facility],[address] [place] [address] 87947 Creatinine [Mass/Vol] 2.40 mg/dL High 0.55 - 1.02 [facility] Comment on above: Performed By: #### 2 19525 ####[facility],[address] [place] [address] 26979 Glucose [Mass/Vol] 109 mg/dL High 74 - 106 [facility] Comment on above: Performed By: #### 2 44927 ####[facility],[address] [place] [address] 69799 Phosphate [Mass/Vol] 5.3 mg/dL High 2.6 - 4.7 [facility] Comment on above: Performed By: #### 2 41236 ####[facility],[address] [place] [address] 43779 Potassium [Moles/Vol] 4.9 mmol/L Normal 3.5 - 5.1 [facility] Comment on above: Performed By: #### 2 22901 ####[facility],[address] [place] [address] 00701 RENAL FUNCTION PANEL Normal [facility] Comment on above: Result Comment: SUSAN L FUNCTION PANEL Performed By: #### 2 60749 ####[facility],[address] [place] [address] 60413 Sodium [Moles/Vol] 136 mmol/L Normal 136 - 145 [facility] Comment on above: Performed By: #### 2 06476 ####[facility],[address] [place] [address] 40474 Urea nitrogen [Mass/Vol] 77 mg/dL High 7 - 18 [facility] Comment on above: Performed By: #### 2 77987 ####[facility],[address] [place] [address] 37453 PTH, INTACT [CCL]on 05-28- 24 PTH, Intact 129 pg/mL High 15-65 [facility] Comment on above: Result Comment: [facility] [place], [place] [address]TlebzjOmalley III, M.[id number] Performed By: #### 2 22451 ####[facility],[address] [place] [address] 03681 BMP with eGFRon 05-27-2024 AGE 83 years Normal [facility] Comment on above: Performed By: #### 2 62745 ####[facility],[address] [place] [address] 71355 Anion gap [Moles/Vol] 11 mmol/L Normal 10 - 20 [facility] Comment on above: Performed By: #### 2 91916 ####[facility],[address] [place] [address] 91584 BMP with eGFR Normal [facility] Comment on above: Result Comment: BASI C METABOLIC PANEL Performed By: #### 2 40202 ####[facility],[address] [place] [address] 90030 Calcium [Mass/Vol] 9.0 mg/dL Normal 8.5 - 10.1 [facility] Comment on above: Performed By: #### 2 79539 ####[facility],[address] [place] [address] 41216 Chloride [Moles/Vol] 104 mmol/L Normal 98 - 107 [facility] Comment on above: Performed By: #### 2 04969 ####[facility],[address] [place] [address] 24665 CO2 [Moles/Vol] 28.4 mmol/L Normal 21.0 - 32.0 [facility] Comment on above: Performed By: #### 2 28285 ####[facility],[address] [place] [address] 99101 Creatinine [Mass/Vol] 2.55 mg/dL High 0.55 - 1.02 [facility] Comment on above: Performed By: #### 2 95246 ####[facility],[address] [place] [address] 23058 eGFR 18 ML/MINUTE Low 60 - 999 [facility] Comment on above: Performed By: #### 2 29634 ####[facility],[address] [place] [address] 31017 eGFR(AA) 22 ML/MINUTE Low 60 - 999 [facility] Comment on above: Result Comment: ACCO RDING TO THE NATIONAL KIDNEY DISEASE EDUCATION PROGRAM(NKDE), A NORMAL eGFRIS A VALUE GREATER THAN OR EQUAL TO 60 ML/MIN/1.73 SQ METERS.CHRONIC KIDNEY DISEASE: <60mL/MIN/1.73 SQ METERSKIDNEY FAILURE: <15mL/MIN/1.73 SQ METERSTHIS TEST SHOULD ONLY BE USED FOR PATIENTS 18 YEARS OF AGE AND OLDER. Performed By: #### 2 12477 ####[address] [address] Glucose [Mass/Vol] 152 mg/dL High 74 - 106 [facility] Comment on above: Performed By: #### 2 87424 ####[address] [address] Potassium [Moles/Vol] 5.1 mmol/L Normal 3.5 - 5.1 [facility] Comment on above: Performed By: #### 2 42042 ####[address] [address] Sodium [Moles/Vol] 138 mmol/L Normal 136 - 145 [facility] Comment on above: Performed By: #### 2 48976 ####[address] [address] Urea nitrogen [Mass/Vol] 78 mg/dL High 7 - 18 [facility] Comment on above: Performed By: #### 2 07047 ####[address] [address] CBC + DIFFon 05-27-2024 Baso # 0.04 x10EE3/UL Normal 0.00 - 0.10 [facility] Comment on above: Performed By: #### 2 22014 ####[address] [address] Basophils/100 WBC (Bld) 0.8 % Normal 0.0 - 2.0 [facility] Comment on above: Performed By: #### 2 99665 ####[place] [address] CBC + DIFF Normal [facility] Comment on above: Result Comment: CBC- COMPLETE BLOOD COUNT Performed By: #### 2 46838 ####[facility],[address] [place] [address] EO # 0.02 x10EE3/UL Normal 0.00 - 0.50 [facility] Comment on above: Performed By: #### 2 47203 ####[place] [address] Eosinophils/100 WBC (Bld) 0.3 % Normal 0.0 - 7.0 [facility] Comment on above: Performed By: #### 2 14422 ####[place] [address] Erythrocyte distribution width (RBC) [Ratio] 14.0 % Normal 12.0 - 15.6 [facility] Comment on above: Performed By: #### 2 77312 ####[place] [address] Hematocrit (Bld) [Volume fraction] 29.1 % Low 34.0 - 46.0 [facility] Comment on above: Performed By: #### 2 95952 ####[facility],[address] [place] [address] Hemoglobin (Bld) [Mass/Vol] 9.7 g/dL Low 12.0 - 16.0 [facility] Comment on above: Performed By: #### 2 26049 ####[place] [address] Lymph # 1.01 x10EE3/UL Normal 0.80 - 2.80 [facility] Comment on above: Performed By: #### 2 27255 ####[facility],[address] [place] [address] Lymphocytes/100 WBC (Bld) 19.8 % Low 20.0 - 45.0 [facility] Comment on above: Performed By: #### 2 51915 ####[facility],[address] [place] [address] MANUAL DIFF N/A Normal [facility] Comment on above: Performed By: #### 2 14647 ####[facility],[address] [place] [address] MCH (RBC) [Entitic mass] 30 pg Normal 27 - 33 [facility] Comment on above: Performed By: #### 2 30137 ####[facility],[address] [place] [address] MCHC 34 X10 3 Normal 32 - 36 [facility] Comment on above: Performed By: #### 2 11599 ####[facility],[address] [place] [address] MCV (RBC) [Entitic vol] 90 fL Normal 80 - 99 [facility] Comment on above: Performed By: #### 2 54596 ####[facility],[address] [place] [address] [place] # 0.47 x10EE3/UL Normal 0.20 - 1.00 [facility] Comment on above: Performed By: #### 2 02213 ####[facility],[address] [place] [address] MONOS % 9.3 % Normal 0.0 - 10.0 [facility] Comment on above: Performed By: #### 2 41303 ####[place] [address] Morphology Souleymane (Bld) [Interp] N/A Normal [facility] Comment on above: Performed By: #### 2 31180 ####[facility],[address],[place] [address] Neut # 3.57 x10EE3/UL Normal 1.50 - 7.10 [facility] Comment on above: Performed By: #### 2 67566 ####[facility],[address] [place] [address] 63108 Neutrophils/100 WBC (Bld) 69.8 % Normal 46.0 - 76.0 [facility] Comment on above: Performed By: #### 2 74576 ####[facility],[address] [place] [address] 41008 PLATELET 102 x10EE3/UL Low 150 - 450 [facility] Comment on above: Performed By: #### 2 19142 ####[facility],[address] [place] [address] 79721 Platelet mean volume (Bld) [Entitic vol] 9.7 fL Normal 6.6 - 10.5 [facility] Comment on above: Result Comment: AUTO MATED DIFFERENTIAL Performed By: #### 2 63840 ####[facility],[address] [place] [address] 88193 RBC 3.23 x 10EE6/UL Low 4.10 - 5.30 [facility] Comment on above: Performed By: #### 2 76472 ####[facility],[address] [place] [address] 55415 WBC 5.1 x 10EE3/UL Normal 4.5 - 10.8 [facility] Comment on above: Performed By: #### 2 41735 ####[facility],[address] [place] [address] 94264 PTH-Intact SerPl-ncon 07- Parathyrin.intact [Mass/Vol] 129 pg/mL High 15-65 [facility] Comment on above: Order Comment: Speci men Type: BLOOD SPECIMEN Ordering Facility: [facility] Address: [address] [place], [place] [id number] Performed By: #### 2 731-8 #### [facility] CLIA [id number] [place] [address] [place] URIC ACIDon 05-27-2024 Urate [Mass/Vol] 9.0 mg/dL High 2.6 - 6.0 [facility] Comment on above: Performed By: #### 2 05951 ####[facility],[address] [place] [address] 51592 URINE CREATININE AND PROTEIN RATIOon 05-27-2024 CREATININE UR 33.37 mg/dl Normal [facility] Comment on above: Performed By: #### 2 33815 ####[facility],[address] [place] [address] 72786 PC RATIO 1.17 mg/dL Normal 0.00 - 10.00 [facility] Comment on above: Performed By: #### 2 77746 ####[facility],[address] [place] [address] 59339 Protein (U) [Mass/Vol] 39.00 mg/dL High 0.00 - 10.00 [facility] Comment on above: Performed By: #### 2 55392 ####[facility],[address] [place] [address] 06234 VITAMIN D, 25 HYDROXYon 05-06 VitD 35.10 ng/mL Normal 30.00 - 100 [facility] Comment on above: Result Comment: 25-O HD3 indicates both endogenous production and supplementation. 25-OHD2 is anindicator of exogenous sources, such as diet or supplementation. Therapy isbased on measurement of Total 25-OHD, with levels <20 ng/mL indicative ofVitamin D deficiency, while levels between 20 ng/mL and 30 ng/mL suggestinsufficiency. Optimal levels are >=30ng/mL.Vitamin D, 25-OH D3 Not EstablishedVitamin D, 25-OH D2 Not Established Performed By: #### 2 88834 ####[facility],[address] [place] [address] 47765 CBC (NO DIFF)on 05-14-2024 CBC panel Auto (Bld) Normal [facility] Comment on above: Result Comment: CBC( WITHOUT DIFFERENTIAL) Performed By: #### 2 01333 ####[facility],[address] [place] [address] Erythrocyte distribution width (RBC) [Ratio] 14.8 % Normal 12.0 - 15.6 [facility] Comment on above: Performed By: #### 2 78812 ####[facility],[address] [place] [address] Hematocrit (Bld) [Volume fraction] 32.4 % Low 34.0 - 46.0 [facility] Comment on above: Performed By: #### 2 90518 ####[facility],[address] [place] [address] Hemoglobin (Bld) [Mass/Vol] 11.1 g/dL Low 12.0 - 16.0 [facility] Comment on above: Performed By: #### 2 36204 ####[facility],[address] [place], [place] [address] MCH (RBC) [Entitic mass] 30 pg Normal 27 - 33 [facility] Comment on above: Performed By: #### 2 61821 ####[facility],[address] [place], [place] [address] MCHC 34 X10 3 Normal 32 - 36 [facility] Comment on above: Performed By: #### 2 81384 ####[facility],[address] [place] [address] 46299 MCV (RBC) [Entitic vol] 89 fL Normal 80 - 99 [facility] Comment on above: Performed By: #### 2 22488 ####[address] [address] PLATELET 125 x10EE3/UL Low 150 - 450 [facility] Comment on above: Performed By: #### 2 48148 ####[facility],[address] [place] [address] 97989 Platelet mean volume (Bld) [Entitic vol] 9.6 fL Normal 6.6 - 10.5 [facility] Comment on above: Performed By: #### 2 27098 ####[facility],[address] [place] [address] 47102 RBC 3.66 x 10EE6/UL Low 4.10 - 5.30 [facility] Comment on above: Performed By: #### 2 40886 ####[facility],[address] [place] [address] 37123 WBC 7.0 x 10EE3/UL Normal 4.5 - 10.8 [facility] Comment on above: Performed By: #### 2 81372 ####[facility],[address] [place] [address] 18750 FERRITINon 05-14-2024 Ferritin [Mass/Vol] 93 ng/mL Normal 8 - 388 [facility] Comment on above: Performed By: #### 2 57459 ####[facility],[address] [place] [address] 16577 IRON AND TIBCon 05-14-2024 %SATURATION 30 % Normal [facility] Comment on above: Performed By: #### 2 52942 ####[facility],[address] [place] [address] 62543 Iron [Mass/Vol] 94 ug/dL Normal 50 - 170 [facility] Comment on above: Performed By: #### 2 06378 ####[facility],[address] [place] [address] 66181 TIBC 311 ug/dl Normal 250 - 450 [facility] Comment on above: Performed By: #### 2 31195 ####[facility],[address] [place] [address] 10337 UIBC 217 ug/dL Normal 155 - 355 [facility] Comment on above: Performed By: #### 2 57408 ####[facility],[address] [place] [address] 14997 RENAL FUNCTION PANELon 05-14 Albumin [Mass/Vol] 3.4 g/dL Normal 3.4 - 5.0 [facility] Comment on above: Performed By: #### 2 02557 ####[facility],[address] [place] [address] 84757 B/C RATIO 31 ratio High 0 - 30 [facility] Comment on above: Performed By: #### 2 13129 ####[facility],[address] [place] [address] 26772 Calcium [Mass/Vol] 9.1 mg/dL Normal 8.5 - 10.1 [facility] Comment on above: Performed By: #### 2 74181 ####[facility],[address] [place] [address] 27145 Chloride [Moles/Vol] 100 mmol/L Normal 98 - 107 [facility] Comment on above: Performed By: #### 2 36428 ####[facility],[address] [place] [address] 52694 CO2 [Moles/Vol] 23.4 mmol/L Normal 21.0 - 32.0 [facility] Comment on above: Performed By: #### 2 37734 ####[facility],[address] [place] [address] 41413 Creatinine [Mass/Vol] 2.42 mg/dL High 0.55 - 1.02 [facility] Comment on above: Performed By: #### 2 94158 ####[facility],[address] [place] [address] 01498 Glucose [Mass/Vol] 227 mg/dL High 74 - 106 [facility] Comment on above: Performed By: #### 2 72937 ####[facility],[address] [place] [address] 69402 Phosphate [Mass/Vol] 4.1 mg/dL Normal 2.6 - 4.7 [facility] Comment on above: Performed By: #### 2 27025 ####[facility],[address] [place] [address] 68859 Potassium [Moles/Vol] 5.1 mmol/L Normal 3.5 - 5.1 [facility] Comment on above: Performed By: #### 2 23224 ####[facility],[address] [place] [address] 36666 RENAL FUNCTION PANEL Normal [facility] Comment on above: Result Comment: SUSAN L FUNCTION PANEL Performed By: #### 2 94436 ####[facility],[address] [place] [address] 18348 Sodium [Moles/Vol] 136 mmol/L Normal 136 - 145 [facility] Comment on above: Performed By: #### 2 36039 ####[facility],[address] [place] [address] 42443 Urea nitrogen [Mass/Vol] 74 mg/dL High 7 - 18 [facility] Comment on above: Performed By: #### 2 61740 ####[facility],[address] [place] [address] 13054 URINE CREATININE AND PROTEIN RATIOon 04-28-2024 CREATININE UR 35.65 mg/dl Normal [facility] Comment on above: Performed By: #### 2 [id number] ####[facility],[address] [place] [address] 45294 PC RATIO 1.36 mg/dL Normal 0.00 - 10.00 [facility] Comment on above: Performed By: #### 2 [id number] ####[facility],[address] [place] [address] 44561 Protein (U) [Mass/Vol] 48.50 mg/dL High 0.00 - 10.00 [facility] Comment on above: Performed By: #### 2 [id number] ####[facility],[address] [place] [address] 54466 BASIC METABOLIC PANELon - Anion gap [Moles/Vol] 9 mmol/L Normal 3-13 [facility] Comment on above: Performed By: #### L [id number] ####Event Lighting Specialist: PAO CARDOZO ([phone])[facility] ([facility])[address] [place] [address] Calcium [Mass/Vol] 8.8 mg/dL Normal 8.4-10.4 [facility] Comment on above: Performed By: #### L [id number] ####Event Lighting Specialist: PAO CARDOZO ([phone])[facility])[address] [place] [address] [place] Chloride [Moles/Vol] 110 mmol/L High 98-107 [facility] Comment on above: Performed By: #### L [id number] ####Event Lighting Specialist: PAO CARDOZO ([phone])[facility] ([facility])[address] [place] [address] CO2 [Moles/Vol] 21 mmol/L Low 22-30 [facility] Comment on above: Performed By: #### L [id number] ####Event Lighting Specialist: PAO CARDOZO ([phone])[facility] ([facility])[address] [place] [address] [place] Creatinine [Mass/Vol] 1.66 mg/dL High 0.52-1.04 [facility] Comment on above: Performed By: #### L AB15 ####Event Lighting Specialist: PAO CARDOZO ([phone])[facility] ([facility])[address] [place] [address] [place] GLOMERULAR FILTRATION RATE ML/MIN/1.73 SQ M.PREDICTED 30.9 mL/min/1.73m*2 Low >60.0 [facility] Comment on above: Result Comment: Calc ulation based on the Chronic Kidney Disease Epidemiology Collaboration (CKD-EPI) equation refit without adjustment for race Performed By: #### L [id number] ####Event Lighting Specialist: PAO CARDOZO ([phone])[facility] ([facility])[address] [place] [address] [place] Glucose [Mass/Vol] 149 mg/dL High 70-100 [facility] Comment on above: Performed By: #### L [id number] ####Event Lighting Specialist: PAO CARDOZO ([phone])[facility] ([facility])[address] [place] [address] Potassium [Moles/Vol] 4.4 mmol/L Normal 3.5-5.1 [facility] Comment on above: Performed By: #### L AB15 ####Event Lighting Specialist: PAO CARDOZO ([id number])[facility] ([facility])[address] [place] [address] Sodium [Moles/Vol] 140 mmol/L Normal 135-145 [facility] Comment on above: Performed By: #### L [id number] ####Event Lighting Specialist: PAO CARDOZO ([phone])[facility] ([facility])[address] [place] [address] Urea nitrogen [Mass/Vol] 50 mg/dL High 7-17 [facility] Comment on above: Performed By: #### L [id number] ####Event Lighting Specialist: PAO CARDOZO ([id number])[facility] ([facility])[address] [place] [address] Basic metabolic 1998 panelon 02-16-2024 Anion gap [Moles/Vol] 9 mmol/L 3 - 13 mmol/L [facility] Calcium [Mass/Vol] 8.8 mg/dL 8.4 - 10. 4 mg/dL [facility] Chloride [Moles/Vol] 110 mmol/L High 98 - 10 7 mmol/L [facility] CO2 [Moles/Vol] 21 mmol/L Low 22 - 30 mmol/L [facility] Creatinine [Mass/Vol] 1.66 mg/dL High 0.52 - 1.04 mg/dL [facility] GFR/1.73 sq M.predicted MDRD (S/P/Bld) [Vol rate/Area] 30.9 mL/min/{1.73_m2} Low - PINF [facility] Comment on above: Calculation based on the Chronic Kidney Disease Epidemiology Collaboration (CKD-EPI) equation refit without adjustment for race Glucose [Mass/Vol] 149 mg/dL High 70 - 100 mg/dL [facility] Interpretation and review of laboratory results Abnormal [facility] Potassium [Moles/Vol] 4.4 mmol/L 3.5 - 5.1 mmol/L [facility] Sodium [Moles/Vol] 140 mmol/L 135 - 145 mmol/L [facility] Urea nitrogen [Mass/Vol] 50 mg/dL High 7 - 17 mg/dL [facility] CARECOORDon 02-16-2024 [facility] DCP- [facility]- [facility]- No auth needed. Pt able to dc to facility once medically stable. Messaged Dr. Tamez to update on the above. Received message back from Dr Tamez who reports pt planned for dc today. DC orders completed. Family plans to transport pt to [facility]. Son Antonio in pt room- aware of dc. Updated RN on the above. No add'l needs for dc noted or identified at this time. Normal [facility] CBC (HEMOGRAM)on 02-16-2024 Erythrocyte distribution width (RBC) [Ratio] 14.1 % Normal 11.5-15.0 [facility] Comment on above: Performed By: #### L [id number] ####Event Lighting Specialist: PAO CARDOZO ([id number])[address] Hematocrit (Bld) [Volume fraction] 30.4 % Low 35.0-47.0 [facility] Comment on above: Performed By: #### L [id number] ####Event Lighting Specialist: PAO [id number])[address] Hemoglobin (Bld) [Mass/Vol] 9.8 g/dL Low 11.7-16.0 [facility] Comment on above: Performed By: #### L [id number] ####Event Lighting Specialist: PAO [id number])[address] IPF 6 Normal [facility] Comment on above: Performed By: #### L [id number] ####Event Lighting Specialist: PAO [id number])[facility] ([facility])[address] [place] [address] MCH (RBC) [Entitic mass] 30.0 pg Normal 26.0-34.0 [facility] Comment on above: Performed By: #### L [id number] ####Event Lighting Specialist: PAO CARDOZO ([phone])[facility])[address] [place] [address] MCHC 32.2 % Normal 30.5-36.0 [facility] Comment on above: Performed By: #### L [id number] ####Event Lighting Specialist: PAO CARDOZO ([id number])[facility] ([facility])[address] [place] [address] MCV (RBC) [Entitic vol] 93.0 fL Normal 77.0-99.0 S [facility] Comment on above: Performed By: #### L [id number] ####Event Lighting Specialist: PAO CARDOZO ([phone])[facility] ([facility])[address] [place] [address] Platelet mean volume (Bld) [Entitic vol] 12.8 fL High 9.0-12.7 [facility] Comment on above: Performed By: #### L [id number] ####Event Lighting Specialist: PAO CARDOZO ([id number])[facility] ([facility])[address] [place] [address] Platelets (Bld) [#/Vol] 73 10*3/uL Low 140-440 S [facility] Comment on above: Performed By: #### L [id number] ####Event Lighting Specialist: PAO CARDOZO ([id number])[facility] ([facility])[address] [place] [address] RBC (Bld) [#/Vol] 3.27 10*6/uL Low 3.80-5.20 [facility] Comment on above: Performed By: #### L [id number] ####Event Lighting Specialist: PAO CARDOZO ([phone])[facility])[address] [place] [address] WBC (Bld) [#/Vol] 5.5 10*3/uL Normal 3.6-10.7 [facility] Comment on above: Performed By: #### L [id number] ####Event Lighting Specialist: PAO CARDOZO ([id number])[facility] ([facility])[address] [place] [address] CBC panel Auto (Bld)on 02-15 Erythrocyte distribution width (RBC) [Ratio] 14.1 % 11.5 - 15.0 % [facility] Hematocrit (Bld) [Volume fraction] 30.4 % Low 35.0 - 47.0 % [facility] Hemoglobin (Bld) [Mass/Vol] 9.8 g/dL Low 11.7 - 16.0 g/dL [facility] Interpretation and review of laboratory results Abnormal [facility] IPF 6 [facility] MCH (RBC) [Entitic mass] 30.0 pg 26.0 - 34.0 pg [facility] MCHC (RBC) [Mass/Vol] 32.2 % 30.5 - 36.0 % [facility] MCV (RBC) [Entitic vol] 93.0 fL 77.0 - 99.0 fL [facility] Platelet mean volume (Bld) [Entitic vol] 12.8 fL High 9.0 - 12.7 fL [facility] Platelets (Bld) [#/Vol] 73 10*3/uL Low 140 - 440 10*3/uL [facility] RBC (Bld) [#/Vol] 3.27 10*6/uL Low 3.80 - 5.2 0 10*6/uL [facility] WBC (Bld) [#/Vol] 5.5 10*3/uL 3.6 - 10.7 10*3/uL [facility] Progress Noteon 02-16-2024 Progress Note Message left at [facility] facility to contact if they would like report on pt returning to them Normal [facility] Progress Note Pt with son Antonio at bedside notified of discharge status, pt and son state they would like to leave [facility]. Pt made ready to travel, pt transported to discharge via wheelchair son to transport back to [facility] Normal [facility] Progress Note Dr Tamez notified of pt family request to go over rest results Normal [facility] Progress Note OCCUPATIONAL THERAPY [facility] Treatment Note Name/MRN: Lucho Gillespie ([id number]) Date of : 1940 Age: 83 y.o. Room/Bed: W3-324/W3-324 B Discharge Recommendation: Care Home Facility Prior Level of Function ADL Assistance: Needs Assist Ambulation Assistance: Independent Transfer Assistance: Independent Assessment Max-mod assist for bed mobility, sit<->stand, standing, transfer, LE bathing, UE/LE dressing. Supv for UE bathing and grooming. Pt. Is deconditioned, fatigues quickly and HIGH risk for falls. See above for dc recommendation. Subjective Pt. Was in bed at the start of OT but now sitting in recliner. Pt. Denies pain, pleasant and agreeable to OT. Medical Precautions: No active isolations Proper PPE donned/doffed in accordance with facility standards. Fall Risk: Stephen Fall Risk Score: 85 (High Risk) Precautions/Restriction s: Lines/Drains/Airways: tele, chair alarm Family/Caregiver Present: none Objective ADLs Grooming: Supervision, after setup to wash/dry hands, face, shampoo cap and oral care UE Bathing: Supervision, after setup LE Bathing: Max Assist, after set up UE Dressing: Mod Assist, Max Assist, after set up [facility] gown LE Dressing: Max Assist after set up todon socks sitting EOB Bed Mobility Supine to sit: Mod Assist, Max Assist Rolling to right: Mod Assist, Max Assist Scooting: Mod Assist, Max Assist Transfers/Mobility Sit to stand: Min Assist, Mod Assist Stand to sit: Min Assist, Mod Assist Stand step: Mod Assist Bed to chair: Mod Assist Sitting balance: SBA Standing balance: Mod Assist Device(s) used: none Cognition - Arousal/alertness: appropriate responses to stimuli - Following commands: follows one step commands consistently - Safety judgement: decreased awareness of need for assistance and decreased awareness of need for safety - Initiation: does not require cues Plan Continue acute OT per plan of care. Safety/Education Safety Safety Devices in place: All fall risk precautions in place, call light within reach, left in chair, chair alarm in place, gait belt, patient at risk for falls, nurse notified, and no alarms engaged upon entry Restraints: No Education Education Given To: patient Education Provided: OT Role, Plan of Care, ADL Adaptive Strategies, Transfer Training, Orientation, Fall Prevention Education, and Benefits of Increasing Activity Education Method: Verbal and Demonstration Barriers to Learning: None Education Outcome: Verbalized Understanding, Demonstrated Understanding, and Continued Education Needed AM-PAC AM-PAC Inpatient Daily Activity Raw Score: 15 ADL Inpatient CMS G-Code Modifier: CK Goals Patient Stated Goal: home Encounter Problems Encounter Problems (Active) Balance Patient will maintain static standing balance for 3 minutes with CGA in order to demonstrate decreased risk of falling. (Progressing) Start: 02/13/24 Expected End: 03/12/24 Dressings Lower Extremities Patient will dress lower body with min assist (Slowly Progressing) Start: 02/13/24 Expected End: 03/12/24 Mobility Patient will demonstrate functional ambulation with CGA and LRD (Not Addressed) Start: 02/13/24 Expected End: 03/12/24 Toileting Patient will complete toileting tasks at bedside commode with CGA. (Not Addressed) Start: 02/13/24 Expected End: 03/12/24 Transfers Patient will complete functional transfer with least restrictive device with CGA in order to prepare for ambulation. (Progressing) Start: 02/13/24 Expected End: 03/12/24 Patient will perform bed mobility with min assist in order to improve independence and prepare for out of bed mobility. (Progressing) Start: 02/13/24 Expected End: 03/12/24 Encounter Problems (Resolved) Grooming Patient will complete daily grooming tasks with set up (Goal Met) Start: 02/13/24 Expected End: 03/12/24 Resolved: 02/16/24 Therapy Time Individual Co-treatment Time In 715 Time Out 08 Minutes 61 Timed Code Treatment Minutes: 61 Minutes (selfcare-3, ther act-1) ALICE Lambert [facility] Progress Note --- Attestation signed by Pérez Polanco MD at 02/16/2024 2:55 PM I have reviewed the above assessment and plan with the FORENSIC SPECIALIST. I agree with above note. Mri findings noted. Has right sided renal artery stent. BP regimen as outlined in PA note. 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 [facility] Progress Note Subjective/ 83 y.o. year old female who we are seeing in consultation for FREDO on CKD4. NAEON BP remains suboptimally controlled Edema is trace Camacho is absent, no issues with UOP No other new issues at this time No interval changes to [facility]. All interval notes/labs/imaging reviewed. Objective/ Vitals: 02/16/24 0231 02/16/24 0551 02/16/24 0820 02/16/24 1013 BP: (!) 172/62 (!) 162/68 (!) 172/88 BP Location: Right arm Right arm Patient Position: Lying Sitting Pulse: 77 64 Resp: 16 16 Temp: 36.4 ?C (97.5 ?F) 36.8 ?C (98.2 ?F) TempSrc: Temporal Temporal SpO2: 95% 96% Weight: Height: 24HR INTAKE/OUTPUT: Intake/Output Summary (Last 24 hours) at 02/16/2024 1217 Last data filed at 02/15/2024 1848 Gross per 24 hour Intake -- Output 1200 ml Net -1200 ml Constitutional: Alert, awake, no apparent distress Head: AT NC Neck: No JVD, no thyromegaly Cardiovascular: S1, S2 without m/r/g Respiratory: CTA B without w/r/r Abdomen: soft, nt, non-distended : Camacho is absent Ext: trace LE edema Scheduled Meds:amLODIPine, 10 mg, Oral, Daily aspirin, 81 mg, Oral, Daily atorvastatin, 40 mg, Oral, Nightly busPIRone, 10 mg, Oral, BID chlorthalidone, 12.5 mg, Oral, Daily cloNIDine, 0.1 mg, Oral, BID doxazosin, 2 mg, Oral, BID senna-docusate sodium, 2 tablet, Oral, BID sodium chloride 0.9%, 5-40 mL, IntraVENous, q12h spironolactone, 50 mg, Oral, Daily Continuous Infusions: PRN Meds:.PRN medications: acetaminophen OR acetaminophen, bisacodyl, hydrALAZINE, labetalol, ondansetron ODT OR ondansetron, polyethylene glycol (PEG) 3350, sodium chloride, sodium chloride 0.9% Data/ Recent Labs 02/14/2412902/15/2442802/16/24423 WBC 6.3 5.1 5.5 HGB 9.5* 9.1* 9.8* HCT 29.6* 28.4* 30.4* MCV 92.8 93.7 93.0 PLT 69* 65* 73* Recent Labs 02/14/2412902/15/2442802/16/24423 NA 140 139 140 K 4.7 4.5 4.4 CL 109* 111* 110* CO2 21* GLUCOSE 123* 132* 149* PHOS 3.7 -- -- MG 2.0 -- -- BUN 52* 52* 50* CREATININE 1.69* 1.79* 1.66* Imaging reviewed: MRA abdomen 02/15/2024: IMPRESSION: 1. Probable right proximal renal artery stent with associated susceptibility artifact limiting evaluation. If there is no history of stent placement, this appearance is suggestive of severe narrowing. 2. Moderate narrowing in the proximal left renal artery. 3. 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 4. T2 hyperintense lesions in the liver and spleen which are not fully characterized and nonspecific in etiology. Follow-up multiphase CT or MRI should be considered if these lesions have not been previously characterized. Assessment/ CKD stage 4 at baseline (N18.4) Acute ischemic stroke (I63.9) Uncontrolled hypertension (I10) Anemia Carotid artery stenosis Hx right renal stenosis (s/p stent 2019) FREDO on CKD4 (resolved) Plan/ -Scr fluctuating, likely around patient's baseline function given known hx of CKD stage 4, baseline scr likely 1.6-1.7 -BP noted, increase spironolactone to 50 mg daily -Continue with current regimen on discharge -Started on prn oral hydralazine 25 mg for SBP > 170 on discharge -MRI results reviewed: right renal artery with prior stent in place, left renal artery with moderate narrowing unchanged from prior exam, will require follow up -Rest of management per primary team From renal standpoint patient ok for discharge with close outpatient follow up with 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 Josette Morgan [facility], PA-C [facility] Office Normal [facility] BASIC METABOLIC PANELon 02-03 Anion gap [Moles/Vol] 5 mmol/L Normal 3-13 [facility] Comment on above: Performed By: #### L [id number] #### Event Lighting Specialist: APO CARDOZO ([id number]) [facility] ([facility]) [address] [place] [address] Calcium [Mass/Vol] 8.4 mg/dL Normal 8.4-10.4 [facility] Comment on above: Performed By: #### L [id number] #### Event Lighting Specialist: PAO CARDOZO ([id number]) [facility]) [address] [place] [address] [place] Chloride [Moles/Vol] 111 mmol/L High 98-107 [facility] Comment on above: Performed By: #### L [id number] #### Event Lighting Specialist: PAO CARDOZO ([id number]) [facility]) [address] [place] [address] [place] CO2 [Moles/Vol] 24 mmol/L Normal 22-30 [facility] Comment on above: Performed By: #### L [id number] #### Event Lighting Specialist: PAO CARDOZO ([phone]) [facility]) [address] [place] [address] [place] Creatinine [Mass/Vol] 1.79 mg/dL High 0.52-1.04 [facility] Comment on above: Performed By: #### L [id number] #### Event Lighting Specialist: PAO CARDOZO ([id number]) [facility]) [address] [place] [address] GLOMERULAR FILTRATION RATE ML/MIN/1.73 SQ M.PREDICTED 28.2 mL/min/1.73m*2 Low >60.0 [facility] Comment on above: Result Comment: Calc ulation based on the Chronic Kidney Disease Epidemiology Collaboration (CKD-EPI) equation refit without adjustment for race Performed By: #### L [id number] #### Event Lighting Specialist: PAO CARDOZO ([id number]) [facility] ([facility]) [address] [place] [address] [place] Glucose [Mass/Vol] 132 mg/dL High 70-100 [facility] Comment on above: Performed By: #### L [id number] #### Event Lighting Specialist: PAO CARDOZO ([phone]) [facility]) [address] [place] [address] Potassium [Moles/Vol] 4.5 mmol/L Normal 3.5-5.1 [facility] Comment on above: Performed By: #### L [id number] #### Event Lighting Specialist: PAO CARDOZO ([phone]) [facility] ([facility]) [address] [place] [address] [place] Sodium [Moles/Vol] 139 mmol/L Normal 135-145 [facility] Comment on above: Performed By: #### L [id number] #### Event Lighting Specialist: PAO CARDOZO ([id number]) [facility] ([facility]) [address] [place] [address] Urea nitrogen [Mass/Vol] 52 mg/dL High 7-17 [facility] Comment on above: Performed By: #### L [id number] #### Event Lighting Specialist: PAO CARDOZO ([phone]) [facility] ([facility]) [address] [place] [address] [place] Basic metabolic 1998 panelon 02-15-2024 Anion gap [Moles/Vol] 5 mmol/L 3 - 13 mmol/L [facility] Calcium [Mass/Vol] 8.4 mg/dL 8.4 - 10. 4 mg/dL [facility] Chloride [Moles/Vol] 111 mmol/L High 98 - 10 7 mmol/L [facility] CO2 [Moles/Vol] 24 mmol/L 22 - 30 mmol/L [facility] Creatinine [Mass/Vol] 1.79 mg/dL High 0.52 - 1.04 mg/dL [facility] GFR/1.73 sq M.predicted MDRD (S/P/Bld) [Vol rate/Area] 28.2 mL/min/{1.73_m2} Low - PINF [facility] Comment on above: Calculation based on the Chronic Kidney Disease Epidemiology Collaboration (CKD-EPI) equation refit without adjustment for race Glucose [Mass/Vol] 132 mg/dL High 70 - 100 mg/dL [facility] Potassium [Moles/Vol] 4.5 mmol/L 3.5 - 5.1 mmol/L [facility] Sodium [Moles/Vol] 139 mmol/L 135 - 145 mmol/L [facility] Urea nitrogen [Mass/Vol] 52 mg/dL High 7 - 17 mg/dL [facility] C-REACTIVE PROTEINon 024 CRP [Mass/Vol] 12.6 mg/L High <10.0 [facility] Comment on above: Performed By: #### L [id number] #### Event Lighting Specialist: PAO CARDOZO ([id number]) [facility] ([facility]) [address] [place] [address] CARECOORDon 02-15-2024 CARECOORD Tcc called and left VM for lulu VAZQUEZ and all clinicals and 7000 kia done. Med rec sent. They are expecting her today . Family to transport - staff to call report to call report to [phone] ext [phone] . MRI is done . Need discharge orders . Normal [facility] CBC (HEMOGRAM)on 02-15-2024 Erythrocyte distribution width (RBC) [Ratio] 14.4 % Normal 11.5-15.0 [facility] Comment on above: Performed By: #### L [id number] #### Event Lighting Specialist: PAO CARDOZO ([phone]) [facility] ([facility]) [address] [place] [address] Hematocrit (Bld) [Volume fraction] 28.4 % Low 35.0-47.0 [facility] Comment on above: Performed By: #### L [id number] #### Event Lighting Specialist: PAO CARDOZO ([phone]) [facility] ([facility]) [address] [place] [address] Hemoglobin (Bld) [Mass/Vol] 9.1 g/dL Low 11.7-16.0 [facility] Comment on above: Performed By: #### L [id number] #### Event Lighting Specialist: PAO CARDOZO ([id number]) [facility] ([facility]) [address] [place] [address] IPF 5 Normal [facility] Comment on above: Performed By: #### L [id number] #### Event Lighting Specialist: PAO CARDOZO ([phone]) [facility]) [address] [place] [address] MCH (RBC) [Entitic mass] 30.0 pg Normal 26.0-34.0 [facility] Comment on above: Performed By: #### L [id number] #### Event Lighting Specialist: PAO CARDOZO ([id number]) [facility] ([facility]) [address] [place] [address] MCHC 32.0 % Normal 30.5-36.0 [facility] Comment on above: Performed By: #### L [id number] #### Event Lighting Specialist: PAO CARDOZO ([phone]) [facility] ([facility]) [address] [place] [address] MCV (RBC) [Entitic vol] 93.7 fL Normal 77.0-99.0 S [facility] Comment on above: Performed By: #### L [id number] #### Event Lighting Specialist: PAO CARDOZO ([id number]) [facility] ([facility]) [address] [place] [address] Platelet mean volume (Bld) [Entitic vol] 12.8 fL High 9.0-12.7 [facility] Comment on above: Performed By: #### L [id number] #### Event Lighting Specialist: PAO CARDOZO ([phone]) [facility] ([facility]) [address] [place] [address] Platelets (Bld) [#/Vol] 65 10*3/uL Low 140-440 S [facility] Comment on above: Performed By: #### L [id number] #### Event Lighting Specialist: PAO CARDOZO ([id number]) [facility] ([facility]) [address] [place] [address] RBC (Bld) [#/Vol] 3.03 10*6/uL Low 3.80-5.20 [facility] Comment on above: Performed By: #### L [id number] #### Event Lighting Specialist: PAO CARDOZO ([id number]) [facility] ([facility]) [address] [place] [address] WBC (Bld) [#/Vol] 5.1 10*3/uL Normal 3.6-10.7 [facility] Comment on above: Performed By: #### L [id number] #### Event Lighting Specialist: PAO CARDOZO ([id number]) [facility] ([facility]) [address] [place] [address] CBC panel Auto (Bld)on 02-14 Erythrocyte distribution width (RBC) [Ratio] 14.4 % 11.5 - 15.0 % [facility] Hematocrit (Bld) [Volume fraction] 28.4 % Low 35.0 - 47.0 % [facility] Hemoglobin (Bld) [Mass/Vol] 9.1 g/dL Low 11.7 - 16.0 g/dL [facility] Interpretation and review of laboratory results Abnormal [facility] IPF 5 [facility] MCH (RBC) [Entitic mass] 30.0 pg 26.0 - 34.0 pg [facility] MCHC (RBC) [Mass/Vol] 32.0 % 30.5 - 36.0 % [facility] MCV (RBC) [Entitic vol] 93.7 fL 77.0 - 99.0 fL [facility] Platelet mean volume (Bld) [Entitic vol] 12.8 fL High 9.0 - 12.7 fL [facility] Platelets (Bld) [#/Vol] 65 10*3/uL Low 140 - 440 10*3/uL [facility] RBC (Bld) [#/Vol] 3.03 10*6/uL Low 3.80 - 5.2 0 10*6/uL [facility] WBC (Bld) [#/Vol] 5.1 10*3/uL 3.6 - 10.7 10*3/uL [facility] ESR (Bld) [Velocity]on 02-14 Interpretation and review of laboratory results Normal [facility] Laboratory - Chemistry and C hemistry - challengeon 02-15-2024 CRP [Mass/Vol] 12.6 mg/L High NINF - 10.0 mg/L [facility] Laboratory - Hematology and Cell countson 02-15-2024 ESR (Bld) [Velocity] 17 mm/h [facility] MRA Abdominal vessels WO and W contrast [place] 02-15-2024 Patient Name: LUCHO OLIVARES : 1940 Exam Date/Time: 02/15/2024 11:26 Procedure: MR ABDOMEN ANGIO W AND WO IV CONTRAST Ordering Provider: RODRIGUEZ PRANJAL Reason For Exam: Renal artery stenosis MR ANGIOGRAPHY OF THE AORTA WITH ATTENTION TO THE RENAL ARTERIES: Indication: Renal artery stenosis, acute on chronic kidney injury. Scan parameters: Coronal T1 and express T2 , gradient-echo along with dynamic contrast-enhanced MRA evaluation of the abdominal aorta was performed with administration of gadolinium. Multiplanar and three-dimensional reconstruction were evaluated as well. Comparison: Radiographs from 02/12/2024 Findings: The abdominal aorta maintains a normal caliber. There is moderate to severe narrowing of the celiac artery origin and mild narrowing of the SMA origin. A single renal artery is identified on the left and on the right. There is suggestion of stent within the proximal right renal artery with associated susceptibility artifact versus severe narrowing. Moderate narrowing is seen in the proximal left renal artery. No hydronephrosis. Fluid attenuation cyst in the left kidney measuring up to 5 cm with no enhancement. T2 hyperintense lesions are seen in the liver and spleen, suboptimally characterized but some of which demonstrate suggestion of peripheral nodular enhancement on postcontrast imaging suggestive of hemangiomas. The adrenals and pancreas are unremarkable. [facility] Cami, Maurisio Sahni MD - 02/15/2024 Patient Name: LUCHO GILLESPIE : 1940 [facility]#: [id number] Exam Date/Time: 02/15/2024 11:26 Procedure: MR ABDOMEN ANGIO W AND WO IV CONTRAST Ordering Provider: RODRIGUEZ PRANJAL Reason For Exam: Renal artery stenosis MR ANGIOGRAPHY OF THE AORTA WITH ATTENTION TO THE RENAL ARTERIES: Indication: Renal artery stenosis, acute on chronic kidney injury. Scan parameters: Coronal T1 and express T2 , gradient-echo along with dynamic contrast-enhanced MRA evaluation of the abdominal aorta was performed with administration of gadolinium. Multiplanar and three-dimensional reconstruction were evaluated as well. Comparison: Radiographs from 02/12/2024 Findings: The abdominal aorta maintains a normal caliber. There is moderate to severe narrowing of the celiac artery origin and mild narrowing of the SMA origin. A single renal artery is identified on the left and on the right. There is suggestion of stent within the proximal right renal artery with associated susceptibility artifact versus severe narrowing. Moderate narrowing is seen in the proximal left renal artery. No hydronephrosis. Fluid attenuation cyst in the left kidney measuring up to 5 cm with no enhancement. T2 hyperintense lesions are seen in the liver and spleen, suboptimally characterized but some of which demonstrate suggestion of peripheral nodular enhancement on postcontrast imaging suggestive of hemangiomas. The adrenals and pancreas are unremarkable. IMPRESSION: 1. Probable right proximal renal artery stent with associated susceptibility artifact limiting evaluation. If there is no history of stent placement, this appearance is suggestive of severe narrowing. 2. Moderate narrowing in the proximal left renal artery. 3. 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 4. T2 hyperintense lesions in the liver and spleen which are not fully characterized and nonspecific in etiology. Follow-up multiphase CT or MRI should be considered if these lesions have not been previously characterized. Report Dictated on Electronically Signed By: Maurisio Almanza DR Electronically Signed Date/Time: 02/15/2024 8:03 PM EDT [facility] Radiology Study observation (narrative) Nino naina MRA Abdominal vessels WO and W contrast IVOrdered By: Maurisio Almanza on 02-15-2024 [employer] Work Phone: No Panel Informationon 02-14 Interpretation and review of laboratory results Abnormal [facility] Progress Noteon 02-15-2024 Progress Note --- Attestation signed by Win Baez, PT at 02/15/2024 4:05 PM Recommend post-acute PT. If tolerance for activity increased, please consider rehab-level PT as an option for discharge PHYSICAL THERAPY [facility] Treatment Note Name/MRN: Lucho Gillespie ([id number]) Date of : 1940 Age: 83 y.o. Room/Bed: W3-324/W3-324 B Discharge Recommendation: Care Home Facility Equipment Needed: No Other: owns rollator Prior Level of Function ADL Assistance: Needs Assist Ambulation Assistance: Independent Transfer Assistance: Independent Assessment Patient performed bed mobility, CGA with minimal cueing for initiation of sequence, able to utilize BUE on bed rails to assist trunk movement, and perform AROM BLE movement. Patient able to bridge hips to move side to side when on bed but required Max x 2 to assist patient hips backwards in bed Patient required increased time sitting EOB due to lightheadedness but resolved with pursed lip breathing technique. Patient performed all transfers Min A with cues for hand placement. Patient able to increase amb distance, Min A, with minimal cueing for normalized gait pattern. Recommend SNF at discharge. Subjective Patient found supine in bed with son in room. Patient states increased fatigue from test done earlier that day. Patient notes wanting to keep Purewick in during bed mobility and transfers due to increased urgency to urinate during movement. Patient left supine in bed. Pain: Slight soreness in LUE from earlier test. Medical Precautions: No active isolations Proper PPE donned/doffed in accordance with facility standards. Fall Risk: Stephen Fall Risk Score: 85 (High Risk) Precautions/Restriction s: Lines/Drains/Airways: tele, Purewick Bed alarm and chair alarm Overall Cognitive Status: WNL Overall Orientation Status: Oriented x4 Family/Caregiver Present: child(katelyn) Objective Ambulation Ambulation 1 Assistive device(s) used: rollator Assist level: Min Assist Distance (ft): 50' x 1 Quality of gait: wide ASHLY, slow sultana Patient able to perform reciprocal stepping, cued for increased sultana. Transfers/Mobility Sit to stand: Min Assist Stand to sit: Min Assist Patient able to initiate transfer but requires verbal cueing for anterior trunk lean for sit to stand, and reaching BUE back when stand to sit. Device(s) used: none Exercises Exercises Straight Leg Raise: Supine x 10 reps, BLE Quad Sets: Supine x 10 reps, BLE Heelslides: Supine x10 reps, BLE Gluteal Sets: Supine, x 10 reps, BLE Hip Abduction: Supine x 10 reps, BLE Knee Long Arc Quad: Seated, x 10 reps, BLE Ankle Pumps: Supine x 10 reps, BLE Upper Extremity: BUE shouler flexion, elbow flexion, SA punches x 10 reps each Comments: all exercises AROM Bed Mobility Supine to sit: Contact Guard Sit to supine: Contact Guard Rolling to left: Contact Guard Scooting: Contact Guard for L<>R, Max A x2 for backward scooting Patient performed bridge for side to side movement but requires Max A x2 for backward movement in bed. Balance: good sitting EOB balance, able to perform BLE LAQ, patient demoing slight L lateral shift, cued for upright trunk Good immediate standing balance with cues for upright posture. Plan Continue acute PT per plan of care. Safety/Education Safety Safety Devices in place: All fall risk precautions in place, call light within reach, left in bed, bed alarm in place, and gait belt Restraints: No Education Gait training, bed mobility, Transfer training, TherEx, Postural education Outcome Measures AM-PAC AM-PAC Inpatient Mobility Raw Score (No Stairs) : 16 JH-HLM JH-HLM Score: Walked 25 ft or more (i.e. walked outside of room) Goals Patient Stated Goal: to go home Encounter Problems Encounter Problems (Active) Balance Patient will maintain dynamic standing balance for 8 minutes with supervision in order to demonstrate decreased risk of falling. (Progressing) Start: 02/13/24 Expected End: 03/12/24 Mobility Patient will ambulate 50 feet with supervision and least restrictive device in order to improve safety and independence with mobility. (Progressing) Start: 02/13/24 Expected End: 03/12/24 Transfers Patient will perform bed mobility with modified independence in order to improve independence and prepare for out of bed mobility. (Progressing) Start: 02/13/24 Expected End: 03/12/24 Patient will complete functional transfer with least restrictive device with supervision in order to prepare for ambulation. (Progressing) Start: 02/13/24 Expected End: 03/12/24 Therapy Time Individual Co-treatment Time In 1155 Time Out 1220 Minutes 25 Timed Code Treatment Minutes: 25 Minutes (gait, TP) Ysabel Robison, SPTBora Bell, HOSPICE FELLOW [facility] Progress Note OCCUPATIONAL THERAPY [facility] Name/MRN: Lucho Gillespie ([id number]) Date: 02/15/2024 OT attempted, pt OOR for MRI. Will reattempt as able. ALICE Holley [facility] Progress Note This is a non-bilabl e note. Following peripherally. PLT count stable. The labs we sent were normal. Smear without blasts. Awaiting MRI abdomen. Recommend follow up with previously scheduled intensive care nurse at discharge. Rosario Mace, PROCUREMENT SPECIALIST - ECONOMIC DEVELOPMENT DIRECTOR [facility] Progress Note --- Attestation signed by Rebecca Rodriguez MD at 02/15/2024 3:27 PM Patient was seen and examined by me. Notes reviewed and plan discussed with the PA. Agree with above note except Any variance is noted below. Renal function relatively stable. BP fluctuating. Await results of MRI for eval of renal art stenosis. Cont same Tx for HTN and add prn hydralazine. Rebecca Rodriguez MD [facility] [phone] [facility] Nephrology Progress Note Subjective/ 83 y.o. year old female who we are seeing in consultation for FREDO on CKD4. SUSIEEON Feels ok Blood pressure is improving Edema is trace Camacho is absent, no issues with UOP Responding to current rx No other new issues at this time No interval changes to [facility]. All interval notes/labs/imaging reviewed. Objective/ Vitals: 02/14/24 2300 02/15/24 0212 02/15/24 0400 02/15/24 0559 BP: 132/58 BP Location: Right arm Patient Position: Pulse: 71 63 61 71 Resp: 18 14 Temp: 36.5 ?C (97.7 ?F) 36.3 ?C (97.4 ?F) TempSrc: Temporal Temporal SpO2: 94% 95% Weight: Height: 24HR INTAKE/OUTPUT: No intake or output data in the 24 hours ending 02/15/24 0858 Constitutional: Alert, awake, no apparent distress Head: AT NC Neck: No JVD, no thyromegaly Cardiovascular: S1, S2 without m/r/g Respiratory: CTA B without w/r/r Abdomen: soft, nt, non-distended : Camacho is absent Ext: trace LE edema Scheduled Meds:amLODIPine, 10 mg, Oral, Daily aspirin, 81 mg, Oral, Daily atorvastatin, 40 mg, Oral, Nightly busPIRone, 10 mg, Oral, BID chlorthalidone, 12.5 mg, Oral, Daily cloNIDine, 0.1 mg, Oral, BID doxazosin, 2 mg, Oral, BID senna-docusate sodium, 2 tablet, Oral, BID sodium chloride 0.9%, 5-40 mL, IntraVENous, q12h spironolactone, 25 mg, Oral, Daily Continuous Infusions: PRN Meds:.PRN medications: acetaminophen OR acetaminophen, bisacodyl, hydrALAZINE, labetalol, ondansetron ODT OR ondansetron, polyethylene glycol (PEG) 3350, sodium chloride, sodium chloride 0.9% Data/ Recent Labs 02/13/2441302/14/2412902/15/24428 WBC 6.5 6.3 5.1 HGB 9.3* 9.5* 9.1* HCT 29.4* 29.6* 28.4* MCV 94.2 92.8 93.7 PLT 67* 69* 65* Recent Labs 02/13/2441302/14/2412902/15/24428 NA 139 140 139 K 4.5 4.7 4.5 CL 111* 109* 111* CO2 24 GLUCOSE 131* 123* 132* PHOS 4.1 3.7 -- MG 1.9 2.0 -- BUN 50* 52* 52* CREATININE 1.75* 1.69* 1.79* Assessment/ CKD stage 4 at baseline (N18.4) Acute ischemic stroke (I63.9) Uncontrolled hypertension (I10) Anemia Carotid artery stenosis FREDO on CKD4 (resolved) Plan/ -Scr fluctuating, likely around patient's baseline function given known hx of CKD stage 4, cont to trend to establish baseline -BP improving, c/w current regimen -Start on prn oral hydralazine 25 mg for SBP > 170 on discharge -Follow up on results of abdominal MRI w and w/o contrast to assess for renal artery stenosis -Rest of management per primary team -From renal standpoint patient ok for discharge planning with close outpatient 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 Thank you for the consult and the opportunity to participate in the care of this patient. Please do not hesitate to call with any questions or concerns. Josette Morgan [facility], PA-C [facility] Office Normal [facility] SEDIMENTATION RATE, AUTOMATE Don 02-15-2024 SEDIMENTATION RATE, ERYTHROCYTE 17 mm/hr Normal 0-20 [facility] Comment on above: Performed By: #### L [id number], [id number] ####Event Lighting Specialist: PAO CARDOZO ([id number])[facility] ([facility])[address] [place] [address] BASIC METABOLIC PANELon 02-03 Anion gap [Moles/Vol] 8 mmol/L Normal 3-13 [facility] Comment on above: Performed By: #### L [id number] #### Event Lighting Specialist: PAO CARDOZO ([id number]) [facility] ([facility]) [address] [place] [address] Calcium [Mass/Vol] 8.6 mg/dL Normal 8.4-10.4 [facility] Comment on above: Performed By: #### L [id number] #### Event Lighting Specialist: PAO CARDOZO ([id number]) [facility] ([facility]) [address] [place] [address] Chloride [Moles/Vol] 109 mmol/L High 98-107 [facility] Comment on above: Performed By: #### L [id number] #### Event Lighting Specialist: PAO CARDOZO ([phone]) [facility] ([facility]) [address] [place] [address] [place] CO2 [Moles/Vol] 24 mmol/L Normal 22-30 [facility] Comment on above: Performed By: #### L [id number] #### Event Lighting Specialist: PAO CARDOZO ([id number]) [facility] [address] [place] [address] [place] Creatinine [Mass/Vol] 1.69 mg/dL High 0.52-1.04 [facility] Comment on above: Performed By: #### L [id number] #### Event Lighting Specialist: PAO CARDOZO ([id number]) [facility]) [address] [place] [address] [place] GLOMERULAR FILTRATION RATE ML/MIN/1.73 SQ M.PREDICTED 30.2 mL/min/1.73m*2 Low >60.0 [facility] Comment on above: Result Comment: Calc ulation based on the Chronic Kidney Disease Epidemiology Collaboration (CKD-EPI) equation refit without adjustment for race Performed By: #### L [id number] #### Event Lighting Specialist: PAO CARDOZO ([id number]) [facility] ([facility]) [address] [place] [address] Glucose [Mass/Vol] 123 mg/dL High 70-100 [facility] Comment on above: Performed By: #### L [id number] #### Event Lighting Specialist: PAO CARDOZO ([id number]) [facility] [address] [place] [address] [place] Potassium [Moles/Vol] 4.7 mmol/L Normal 3.5-5.1 [facility] Comment on above: Performed By: #### L [id number] #### Event Lighting Specialist: PAO CARDOZO ([id number]) [facility] [address] [place] [address] Sodium [Moles/Vol] 140 mmol/L Normal 135-145 [facility] Comment on above: Performed By: #### L [id number] #### Event Lighting Specialist: PAO CARDOZO ([phone]) [facility] [address] [place] [address] Urea nitrogen [Mass/Vol] 52 mg/dL High 7-17 [facility] Comment on above: Performed By: #### L [id number] #### Event Lighting Specialist: PAO CARDOZO ([id number]) [facility] ([facility]) [address] [place] [address] Basic metabolic 1998 panelon 02-14-2024 Anion gap [Moles/Vol] 8 mmol/L 3 - 13 mmol/L [facility] Calcium [Mass/Vol] 8.6 mg/dL 8.4 - 10. 4 mg/dL [facility] Chloride [Moles/Vol] 109 mmol/L High 98 - 10 7 mmol/L [facility] CO2 [Moles/Vol] 24 mmol/L 22 - 30 mmol/L [facility] Creatinine [Mass/Vol] 1.69 mg/dL High 0.52 - 1.04 mg/dL [facility] GFR/1.73 sq M.predicted MDRD (S/P/Bld) [Vol rate/Area] 30.2 mL/min/{1.73_m2} Low - PINF [facility] Comment on above: Calculation based on the Chronic Kidney Disease Epidemiology Collaboration (CKD-EPI) equation refit without adjustment for race Glucose [Mass/Vol] 123 mg/dL High 70 - 100 mg/dL [facility] Potassium [Moles/Vol] 4.7 mmol/L 3.5 - 5.1 mmol/L [facility] Sodium [Moles/Vol] 140 mmol/L 135 - 145 mmol/L [facility] Urea nitrogen [Mass/Vol] 52 mg/dL High 7 - 17 mg/dL [facility] CBC W Auto Differential pane l (Bld)on 02-14-2024 Basophils (Bld) [#/Vol] 0.0 10*3/uL 0.0 - 0.2 10*3/uL [facility] Basophils/100 WBC (Bld) 0.3 % 0.0 - 2.0 % [facility] Eosinophils (Bld) [#/Vol] 0.2 10*3/uL 0.0 - 0.5 10*3/uL [facility] Eosinophils/100 WBC (Bld) 2.6 % 0.0 - 6.0 % [facility] Erythrocyte distribution width (RBC) [Ratio] 14.3 % 11.5 - 15.0 % [facility] Hematocrit (Bld) [Volume fraction] 29.6 % Low 35.0 - 47.0 % [facility] Hemoglobin (Bld) [Mass/Vol] 9.5 g/dL Low 11.7 - 16.0 g/dL [facility] Immature granulocytes (Bld) [#/Vol] 0.0 10*3/uL NINF - 0.1 10*3/uL [facility] Immature granulocytes/100 WBC (Bld) 0.5 % 0.0 - 2.0 % [facility] Interpretation and review of laboratory results Abnormal [facility] IPF 4 [facility] Lymphocytes (Bld) [#/Vol] 0.8 10*3/uL Low 1.0 - 4.3 10*3/uL [facility] Lymphocytes/100 WBC (Bld) 12.8 % Low 15.0 - 45.0 % [facility] MCH (RBC) [Entitic mass] 29.8 pg 26.0 - 34.0 pg [facility] MCHC (RBC) [Mass/Vol] 32.1 % 30.5 - 36.0 % [facility] MCV (RBC) [Entitic vol] 92.8 fL 77.0 - 99.0 fL [facility] Monocytes (Bld) [#/Vol] 0.5 10*3/uL 0.0 - 0.9 10*3/uL [facility] Monocytes/100 WBC (Bld) 7.5 % 5.0 - 13.0 % [facility] Neutrophils (Bld) [#/Vol] 4.8 10*3/uL 1.8 - 7.5 10*3/uL [facility] Neutrophils/100 WBC (Bld) 76.3 % 38.0 - 82.0 % [facility] Nucleated RBC/100 WBC (Bld) [Ratio] 0.0 % [facility] Platelet mean volume (Bld) [Entitic vol] 13.4 fL High 9.0 - 12.7 fL [facility] Platelets (Bld) [#/Vol] 69 10*3/uL Low 140 - 440 10*3/uL [facility] RBC (Bld) [#/Vol] 3.19 10*6/uL Low 3.80 - 5.2 0 10*6/uL [facility] WBC (Bld) [#/Vol] 6.3 10*3/uL 3.6 - 10.7 10*3/uL [facility] CBC WITH AUTO DIFFERENTIALon 02-14-2024 Basophils (Bld) [#/Vol] 0.0 10*3/uL Normal 0.0-0.2 [facility] Comment on above: Performed By: #### Sriram [id number], [id number] ####Event Lighting Specialist: PAO CARDOZO ([id number])[facility] ([facility])[address] [place] [address] Basophils/100 WBC (Bld) 0.3 % Normal 0.0-2.0 S [facility] Comment on above: Performed By: #### Sriram [id number], [id number] ####Event Lighting Specialist: PAO CARDOZO ([id number])[facility] ([facility])[address] [place] [address] Eosinophils (Bld) [#/Vol] 0.2 10*3/uL Normal 0.0-0.5 [facility] Comment on above: Performed By: #### L [id number], [id number] ####Event Lighting Specialist: PAO CARDOZO ([id number])[address] Eosinophils/100 WBC (Bld) 2.6 % Normal 0.0-6.0 [facility] Comment on above: Performed By: #### Sriram [id number], [id number] ####Event Lighting Specialist: PAO CARDOZO ([id number])[address] Erythrocyte distribution width (RBC) [Ratio] 14.3 % Normal 11.5-15.0 [facility] Comment on above: Performed By: #### Sriram [id number], [id number] ####Event Lighting Specialist: PAO CARDOZO ([id number])[address] Hematocrit (Bld) [Volume fraction] 29.6 % Low 35.0-47.0 [facility] Comment on above: Performed By: #### Sriram [id number], [id number] ####Event Lighting Specialist: PAO CARDOZO ([phone])[address] Hemoglobin (Bld) [Mass/Vol] 9.5 g/dL Low 11.7-16.0 [facility] Comment on above: Performed By: #### Sriram [id number], [id number] ####Event Lighting Specialist: PAO CARDOZO ([phone])[facility])[address] [place] [address] IMMATURE GRANS % 0.5 % Normal 0.0-2.0 [facility] Comment on above: Performed By: #### L [id number], [id number] ####Event Lighting Specialist: PAO CARDOZO ([phone])[address] IMMATURE GRANS ABSOLUTE 0.0 10*3/uL Normal <0.1 [facility] Comment on above: Performed By: #### Sriram [id number], [id number] ####Event Lighting Specialist: PAO CARDOZO ([phone])[address] IPF 4 Normal [facility] Comment on above: Performed By: #### Sriram [id number], [id number] ####Event Lighting Specialist: PAO CARDOZO ([phone])[facility])[address] [place] [address] Lymphocytes (Bld) [#/Vol] 0.8 10*3/uL Low 1.0-4.3 [facility] Comment on above: Performed By: #### Sriram [id number], [id number] ####Event Lighting Specialist: PAO CARDOZO ([id number])[address] Lymphocytes/100 WBC (Bld) 12.8 % Low 15.0-45.0 [facility] Comment on above: Performed By: #### Sriram [id number], [id number] ####Event Lighting Specialist: PAO CRADOZO ([phone])[address] MCH (RBC) [Entitic mass] 29.8 pg Normal 26.0-34.0 [facility] Comment on above: Performed By: #### Sriram [id number], [id number] ####Event Lighting Specialist: PAO CARDOZO ([phone])[address] MCHC 32.1 % Normal 30.5-36.0 [facility] Comment on above: Performed By: #### Sriram [id number], [id number] ####Event Lighting Specialist: PAO CARDOZO ([phone])[address] MCV (RBC) [Entitic vol] 92.8 fL Normal 77.0-99.0 [facility] Comment on above: Performed By: #### Sriram [id number], [id number] ####Event Lighting Specialist: PAO CARDOZO ([phone])[facility] ([facility])[address] [place] [address] Monocytes (Bld) [#/Vol] 0.5 10*3/uL Normal 0.0-0.9 [facility] Comment on above: Performed By: #### L [id number], [id number] ####Event Lighting Specialist: PAO CARDOZO ([phone])[facility] ([facility])[address] [place] [address] Monocytes/100 WBC (Bld) 7.5 % Normal 5.0-13.0 [facility] Comment on above: Performed By: #### Sriram [id number], [id number] ####Event Lighting Specialist: PAO CARDOZO ([id number])[facility] ([facility])[address] [place] [address] NEUTROPHILS ABSOLUTE 4.8 10*3/uL Normal 1.8-7.5 [facility] Comment on above: Performed By: #### Sriram [id number], [id number] ####Event Lighting Specialist: PAO CARDOZO ([phone])[facility] ([facility])[address] [place] [address] Neutrophils/100 WBC (Bld) 76.3 % Normal 38.0-82.0 [facility] Comment on above: Performed By: #### Sriram [id number], [id number] ####Event Lighting Specialist: PAO CARDOZO ([phone])[facility] ([facility])[address] [place] [address] NRBC 0.0 /100 WBCs Normal 0.0-2.0 [facility] Comment on above: Performed By: #### L [id number], [id number] ####Event Lighting Specialist: PAO CARDOZO ([phone])[facility])[address] [place] [address] Platelet mean volume (Bld) [Entitic vol] 13.4 fL High 9.0-12.7 [facility] Comment on above: Performed By: #### L [id number], [id number] ####Event Lighting Specialist: PAO CARDOZO ([id number])[facility] ([facility])[address] [place] [address] Platelets (Bld) [#/Vol] 69 10*3/uL Low 140-440 [facility] Comment on above: Performed By: #### L [id number], [id number] ####Event Lighting Specialist: PAO CARDOZO ([phone])[facility] ([facility])[address] [place] [address] RBC (Bld) [#/Vol] 3.19 10*6/uL Low 3.80-5.20 [facility] Comment on above: Performed By: #### L [id number], [id number] ####Event Lighting Specialist: PAO CARDOZO ([phone])[facility] ([facility])[address] [place] [address] WBC (Bld) [#/Vol] 6.3 10*3/uL Normal 3.6-10.7 [facility] Comment on above: Performed By: #### L [id number], [id number] ####Event Lighting Specialist: PAO CARDOZO ([phone])[facility] ([facility])[address] [place] [address] HEPATIC FUNCTION PANELon Albumin [Mass/Vol] 3.1 g/dL Low 3.5-5.0 [facility] Comment on above: Performed By: #### L [id number] #### Event Lighting Specialist: PAO CARDOZO ([phone]) [facility] ([facility]) [address] [place] [address] ALP [Catalytic activity/Vol] 58 U/L Normal 38-126 [facility] Comment on above: Performed By: #### L [id number] #### Event Lighting Specialist: PAO CARDOZO ([phone]) [facility]) [address] [place] [address] ALT [Catalytic activity/Vol] 18 U/L Normal 0-34 [facility] Comment on above: Performed By: #### L [id number] #### Event Lighting Specialist: PAO CARDOZO ([id number]) [facility]) [address] [place] [address] AST [Catalytic activity/Vol] 30 U/L Normal 15-46 [facility] Comment on above: Performed By: #### L [id number] #### Event Lighting Specialist: PAO CARDOZO ([phone]) [facility] ([facility]) [address] [place] [address] Bilirubin [Mass/Vol] 0.7 mg/dL Normal 0.2-1.3 [facility] Comment on above: Performed By: #### L [id number] #### Event Lighting Specialist: PAO CARDOZO ([id number]) [facility] ([facility]) [address] [place] [address] Bilirubin.indirect [Mass/Vol] 0.0 mg/dL Normal 0.0-0.3 [facility] Comment on above: Performed By: #### L [id number] #### Event Lighting Specialist: PAO CARDOZO ([id number]) [facility] ([facility]) [address] [place] [address] Protein [Mass/Vol] 6.1 g/dL Low 6.3-8.2 [facility] Comment on above: Performed By: #### L [id number] #### Event Lighting Specialist: PAO CARDOZO ([id number]) [facility] ([facility]) [address] [place] [address] Hepatic function 2000 panelo n 02-14-2024 Albumin [Mass/Vol] 3.1 g/dL Low 3.5 - 5.0 g/dL [facility] ALP [Catalytic activity/Vol] 58 U/L 38 - 126 U/L [facility] ALT [Catalytic activity/Vol] 18 U/L 0 - 34 U/L [facility] AST [Catalytic activity/Vol] 30 U/L 15 - 46 U/L [facility] Bilirubin [Mass/Vol] 0.7 mg/dL 0.2 - 1 .3 mg/dL [facility] Bilirubin.conjugated [Mass/Vol] 0.0 mg/dL 0.0 - 0.3 mg/dL [facility] Protein [Mass/Vol] 6.1 g/dL Low 6.3 - 8.2 g/dL [facility] IDNon 02-14-2024 IDN The patient is Moderately Stable - Low risk of patient condition declining or worsening The patient's goals for the shift include The clinical goals for the shift include safety Over the shift, the patient did not make progress toward the following goals. Barriers to progression include Problem: Knowledge Deficit Goal: Patient/family/caregive r demonstrates understanding of disease process, treatment plan, medications, and discharge instructions Outcome: Progressing Problem: Potential for Compromised Skin Integrity Goal: Skin Integrity is Maintained or Improved Outcome: Progressing Goal: Nutritional status is improving Outcome: Progressing Problem: Potential for Aspiration Goal: Non-ventilated patient's risk of aspiration is minimized Outcome: Progressing Normal [facility] LACTATE DEHYDROGENASEon 02-03 LDH [Catalytic activity/Vol] 213 U/L Normal 120-246 [facility] Comment on above: Performed By: #### L [id number] #### Event Lighting Specialist: PAO CARDOZO ([id number]) [facility] ([facility]) [address] [place] [address] Laboratory - Chemistry and C hemistry - challengeon 02-14-2024 TSH Qn 2.991 m[IU]/L [facility] h LDH Lactate to pyruvate reaction [Catalytic activity/Vol] 213 U/L 120 - 246 U/L [facility] Magnesium [Mass/Vol] 2.0 mg/dL 1.6 - 2 .3 mg/dL [facility] MAGNESIUMon 02-14-2024 Magnesium [Mass/Vol] 2.0 mg/dL Normal 1.6-2.3 [facility] Comment on above: Performed By: #### L [id number] #### Event Lighting Specialist: PAO CARDOZO ([phone]) [facility] ([facility]) [address] [place] [address] No Panel Informationon 02-13 Interpretation and review of laboratory results Normal [facility] Interpretation and review of laboratory results Abnormal [facility] PHOSPHORUSon 02-14-2024 Phosphate [Mass/Vol] 3.7 mg/dL Normal 2.5-4.5 [facility] Comment on above: Performed By: #### L [id number] #### Event Lighting Specialist: PAO CARDOZO ([id number]) [facility] ([facility]) [address] [place] [address] Phosphate [Moles/Vol]on 02-03 Phosphate [Mass/Vol] 3.7 mg/dL 2.5 - 4 .5 mg/dL [facility] Progress Noteon 02-14-2024 Progress Note PHYSICAL THERAPY [facility] Treatment Note Name/MRN: Lucho Gillespie ([id number]) Date of : 1940 Age: 83 y.o. Room/Bed: W3-324/W3-324 B Discharge Recommendation: Care Home Facility Equipment Needed: No Other: owns rollator Prior Level of Function ADL Assistance: Needs Assist Ambulation Assistance: Independent Transfer Assistance: Independent Assessment Patient able to perform all BLE exercises AROM increasing strength and mobility. Patient performed bed mobility Min A with minimal cueing for sequence, able to utilize BUE on bed rails to assist with trunk. Patient able to scoot to EOB Min A, with cues for anterior trunk lean. Patient performed sit to stand transfer, Mod A with cues for hand placement, and increased anterior trunk shift to initiate movement. Patient cued to not hold breath during transfers. Patient able to increase amb distance, CGA with minimal cueing for proper postural positioning in rollator for safety. Recommend IP rehab at discharge. Subjective Patient found supine in bed with daughter and son present. Patient agreeable to PT. Patient reported feeling lightheaded when sitting EOB, resolved after drinking water and taking deep breaths. Patient reported some fatigue in legs while ambulating. Patient left in bed. Pain: Pt denies any current pain. Medical Precautions: No active isolations Proper PPE donned/doffed in accordance with facility standards. Fall Risk: Stephen Fall Risk Score: 85 (High Risk) Precautions/Restriction s: Lines/Drains/Airways: tele, Purewick chair alarm Overall Cognitive Status: WNL Overall Orientation Status: Oriented x4 Family/Caregiver Present: child(katelyn) Objective Ambulation Ambulation 1 Assistive device(s) used: rollator Assist level: Contact Guard Distance (ft): 50' x 1 Quality of gait: wide ASHLY, slow sultana Patient cued for postural position in rollator for increased safety awareness. Patient cued for deep breathing. Transfers/Mobility Sit to stand: Mod Assist Stand to sit: Min Assist Patient cued for hand placement and anterior trunk shift. Patient performed two STS transfers decreasing assistance level on second trial to Min A/CGA Device(s) used: none Exercises Exercises Quad Sets: Supine x 10 reps, BLE Heelslides: Supine x10 reps, BLE Gluteal Sets: Supine, x 10 reps, BLE Hip Abduction: Supine x 10 reps, BLE Knee Long Arc Quad: Seated, x 10 reps, BLE Ankle Pumps: Supine x 10 reps, BLE Upper Extremity: BUE shouler flexion, elbow flexion, SA punches x 10 reps each Comments: all exercises AROM Bed Mobility Supine to sit: Min Assist Sit to supine: Min Assist Scooting: Min Assist Patient able to initiate bed mobility with BUE support on bed rails, patient cued to assist trunk movement with L elbow. Balance: Sitting EOB, SBA, x 3 minutes with cues for pursed lip breathing. Good immediate standing balance, with little to no cueing for correct posture. Plan Continue acute PT per plan of care. Safety/Education Safety Safety Devices in place: All fall risk precautions in place, call light within reach, left in bed, bed alarm in place, and gait belt Restraints: No Education Gait training, Transfer Training, Bed Mobility, TherEx Outcome Measures AM-PAC AM-PAC Inpatient Mobility Raw Score (No Stairs) : 16 JH-HLM JH-HLM Score: Walked 25 ft or more (i.e. walked outside of room) Goals Patient Stated Goal: to go home Encounter Problems Encounter Problems (Active) Balance Patient will maintain dynamic standing balance for 8 minutes with supervision in order to demonstrate decreased risk of falling. (Progressing) Start: 02/13/24 Expected End: 03/12/24 Mobility Patient will ambulate 50 feet with supervision and least restrictive device in order to improve safety and independence with mobility. (Progressing) Start: 02/13/24 Expected End: 03/12/24 Transfers Patient will perform bed mobility with modified independence in order to improve independence and prepare for out of bed mobility. (Progressing) Start: 02/13/24 Expected End: 03/12/24 Patient will complete functional transfer with least restrictive device with supervision in order to prepare for ambulation. (Progressing) Start: 02/13/24 Expected End: 03/12/24 Therapy Time Individual Co-treatment Time In 1500 Time Out 1534 Minutes 34 Timed Code Treatment Minutes: 34 Minutes (Gait, TP) Ysabel Robison, SPTA Joan Segal, HOSPICE FELLOW Normal [facility] RETICULOCYTESon 02-14-2024 Reticulocytes/100 RBC (Bld) 1.93 % Normal [facility] Comment on above: Result Comment: Newb orn < 5% Adults 0.4 - 2.0% Performed By: #### L [id number], [id number] ####Event Lighting Specialist: PAO CARDOZO ([id number])[facility] ([facility])[address] [place] [address] Reticulocytes panel (Bld)Ord ered By: Rico Recio on 02-14-2024 Reticulocytes/100 RBC (Bld) 1.93 % [facility] Comment on above: < 5% Adults 0.4 - 2.0% [facility] THYROID STIMULATING HORMONEo n 02-14-2024 THYROID STIMULATING HORMONE 2.991 uIU/mL Normal 0.465-4.680 [facility] Comment on above: Performed By: #### L [id number] #### Event Lighting Specialist: PAO CARDOZO ([phone]) [facility]) [address] [place] [address] TSH Qnon 02-14-2024 Interpretation and review of laboratory results Normal [facility] US ABDOMEN COMPLETEon 2023 US ABDOMEN COMPLETE Patient Name: LUCHO OLIVARES : 1940 Exam Date/Time: 02/14/2024 11:08 Procedure: US ABDOMEN COMPLETE Ordering Provider: MACE AMANDA Reason For Exam: THROMBOCYTOPENIA ULTRASOUND ABDOMEN COMPLETE EXAM DATE AND TIME: 02/14/2024 11:08 AM EDT INDICATION: 83 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 The remainder of the pancreas is obscured by bowel gas Liver: Cystic lesion in the right hepatic lobe, measuring 4.2 x 3.7 x 2.9 cm. This appears to contain echogenic thickened internal septations. No internal vascularity. Cystic lesion in the right hepatic lobe, measuring 1.4 x 1.5 x 1.4 cm. This contains a single echogenic slightly thickened septation. The liver is smooth in contour. Liver is normal in size. Mild coarsening of the hepatic echotexture. Gallbladder: Status post cholecystectomy. Per the applied technologist, the sonographic Monet's sign was negative. Bile ducts: No intrahepatic and extrahepatic biliary dilatation Common bile duct: 5 mm Right kidney: Normal size measuring 12.7 cm. No hydronephrosis. Mild right renal cortical thinning.. Left kidney: Normal size measuring 11.0 cm. 5.2 cm left renal cortical cyst, which contains a single slightly thickened internal septation. Mild left renal cortical thinning. Spleen: Upper normal size measuring 13.1 cm. Slightly echogenic lesion within the spleen, measuring 1.7 x 1.7 x 1.7 cm. Several additional smaller echogenic splenic lesions. Aorta and Inferior vena cava: Visualized portions are normal Ascites: None IMPRESSION: 1. Several slightly echogenic splenic lesions, which may represent hemangiomas, but are not definitively characterized. Cannot exclude splenic metastases, lymphoma, or other splenic neoplasm. Recommend further evaluation with multiphasic MRI of the abdomen. 2. Complex cystic hepatic lesions. Recommend attention on follow-up MRI. 3. Left renal cyst, containing a slightly thickened septation. Recommend attention on follow-up MRI. Report Dictated on Electronically Signed By: Yancy Bolivar MD Electronically Signed Date/Time: 02/14/2024 12:06 PM EDT [facility] US Abdomenon 02-14-2024 1. Several slightly echogenic splenic lesions, which may represent hemangiomas, but are not definitively characterized. Cannot exclude splenic metastases, lymphoma, or other splenic neoplasm. Recommend further evaluation with multiphasic MRI of the abdomen. 2. Complex cystic hepatic lesions. Recommend attention on follow-up MRI. 3. Left renal cyst, containing a slightly thickened septation. Recommend attention on follow-up MRI. 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 The remainder of the pancreas is obscured by bowel gas Liver: Cystic lesion in the right hepatic lobe, measuring 4.2 x 3.7 x 2.9 cm. This appears to contain echogenic thickened internal septations. No internal vascularity. Cystic lesion in the right hepatic lobe, measuring 1.4 x 1.5 x 1.4 cm. This contains a single echogenic slightly thickened septation. The liver is smooth in contour. Liver is normal in size. Mild coarsening of the hepatic echotexture. Gallbladder: Status post cholecystectomy. Per the applied technologist, the sonographic Monet's sign was negative. Bile ducts: No intrahepatic and extrahepatic biliary dilatation Common bile duct: 5 mm Right kidney: Normal size measuring 12.7 cm. No hydronephrosis. Mild right renal cortical thinning.. Left kidney: Normal size measuring 11.0 cm. 5.2 cm left renal cortical cyst, which contains a single slightly thickened internal septation. Mild left renal cortical thinning. Spleen: Upper normal size measuring 13.1 cm. Slightly echogenic lesion within the spleen, measuring 1.7 x 1.7 x 1.7 cm. Several additional smaller echogenic splenic lesions. 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 The remainder of the pancreas is obscured by bowel gas Liver: Cystic lesion in the right hepatic lobe, measuring 4.2 x 3.7 x 2.9 cm. This appears to contain echogenic thickened internal septations. No internal vascularity. Cystic lesion in the right hepatic lobe, measuring 1.4 x 1.5 x 1.4 cm. This contains a single echogenic slightly thickened septation. The liver is smooth in contour. Liver is normal in size. Mild coarsening of the hepatic echotexture. Gallbladder: Status post cholecystectomy. Per the applied technologist, the sonographic Monet's sign was negative. Bile ducts: No intrahepatic and extrahepatic biliary dilatation Common bile duct: 5 mm Right kidney: Normal size measuring 12.7 cm. No hydronephrosis. Mild right renal cortical thinning.. Left kidney: Normal size measuring 11.0 cm. 5.2 cm left renal cortical cyst, which contains a single slightly thickened internal septation. Mild left renal cortical thinning. Spleen: Upper normal size measuring 13.1 cm. Slightly echogenic lesion within the spleen, measuring 1.7 x 1.7 x 1.7 cm. Several additional smaller echogenic splenic lesions. Aorta and Inferior vena cava: Visualized portions are normal Ascites: None IMPRESSION: 1. Several slightly echogenic splenic lesions, which may represent hemangiomas, but are not definitively characterized. Cannot exclude splenic metastases, lymphoma, or other splenic neoplasm. Recommend further evaluation with multiphasic MRI of the abdomen. 2. Complex cystic hepatic lesions. Recommend attention on follow-up MRI. 3. Left renal cyst, containing a slightly thickened septation. Recommend attention on follow-up MRI. Report Dictated on Electronically Signed By: Yancy Bolivar MD Electronically Signed Date/Time: 02/14/2024 12:06 PM EDT [facility] Radiology Study observation (narrative) [facility]th US AbdomenOrdered By: Yancy Bolivar on 02-14-2024 [employer] Work Phone: BASIC METABOLIC PANELon 02-03 Anion gap [Moles/Vol] 7 mmol/L Normal 3-13 [facility] Comment on above: Performed By: #### L AB103, [id number], LAB15, LAB20, LAB68, LAB67, LAB69 ####Event Lighting Specialist: PAO CARDOZO ([phone])[facility])[address] [place] [address] Calcium [Mass/Vol] 8.4 mg/dL Normal 8.4-10.4 [facility] Comment on above: Performed By: #### L AB103, [id number], LAB15, LAB20, LAB68, LAB67, LAB69 ####Event Lighting Specialist: PAO CARDOZO ([id number])[facility] ([facility])[address] [place] [address] Chloride [Moles/Vol] 111 mmol/L High 98-107 [facility] Comment on above: Performed By: #### L AB103, [id number], LAB15, LAB20, LAB68, LAB67, LAB69 ####Event Lighting Specialist: PAO CARDOZO ([phone])[facility] ([facility])[address] [place] [address] CO2 [Moles/Vol] 21 mmol/L Low 22-30 [facility] Comment on above: Performed By: #### L AB103, [id number], LAB15, LAB20, LAB68, LAB67, LAB69 ####Event Lighting Specialist: PAO CARDOZO ([phone])[facility] ([facility])[address] [place] [address] Creatinine [Mass/Vol] 1.75 mg/dL High 0.52-1.04 [facility] Comment on above: Performed By: #### L AB103, [id number], LAB15, LAB20, LAB68, LAB67, LAB69 ####Event Lighting Specialist: PAO CARDOZO ([phone])[facility])[address] [place] [address] [place] GLOMERULAR FILTRATION RATE ML/MIN/1.73 SQ M.PREDICTED 29.0 mL/min/1.73m*2 Low >60.0 [facility] Comment on above: Result Comment: Calc ulation based on the Chronic Kidney Disease Epidemiology Collaboration (CKD-EPI) equation refit without adjustment for race Performed By: #### L AB103, [id number], LAB15, LAB20, LAB68, LAB67, LAB69 ####Event Lighting Specialist: PAO CARDOZO ([phone])[facility])[address] [place] [address] Glucose [Mass/Vol] 131 mg/dL High 70-100 [facility] Comment on above: Performed By: #### L AB103, [id number], LAB15, LAB20, LAB68, LAB67, LAB69 ####Event Lighting Specialist: PAO CARDOZO ([phone])[facility] ([facility])[address] [place] [address] Potassium [Moles/Vol] 4.5 mmol/L Normal 3.5-5.1 [facility] Comment on above: Performed By: #### L AB103, [id number], LAB15, LAB20, LAB68, LAB67, LAB69 ####Event Lighting Specialist: PAO CARDOZO ([phone])[facility] ([facility])[address] [place] [address] Sodium [Moles/Vol] 139 mmol/L Normal 135-145 [facility] Comment on above: Performed By: #### L AB103, [id number], LAB15, LAB20, LAB68, LAB67, LAB69 ####Event Lighting Specialist: PAO CARDOZO ([phone])[facility])[address] [place] [address] Urea nitrogen [Mass/Vol] 50 mg/dL High 7-17 [facility] Comment on above: Performed By: #### L AB103, [id number], LAB15, LAB20, LAB68, LAB67, LAB69 ####Event Lighting Specialist: PAO CARDOZO ([phone])[facility])[address] [place] [address] Basic metabolic 1998 panelon 02-13-2024 Anion gap [Moles/Vol] 7 mmol/L 3 - 13 mmol/L [facility] Calcium [Mass/Vol] 8.4 mg/dL 8.4 - 10. 4 mg/dL [facility] Chloride [Moles/Vol] 111 mmol/L High 98 - 10 7 mmol/L [facility] CO2 [Moles/Vol] 21 mmol/L Low 22 - 30 mmol/L [facility] Creatinine [Mass/Vol] 1.75 mg/dL High 0.52 - 1.04 mg/dL [facility] GFR/1.73 sq M.predicted MDRD (S/P/Bld) [Vol rate/Area] 29.0 mL/min/{1.73_m2} Low - PINF [facility] Comment on above: Calculation based on the Chronic Kidney Disease Epidemiology Collaboration (CKD-EPI) equation refit without adjustment for race Glucose [Mass/Vol] 131 mg/dL High 70 - 100 mg/dL [facility] Potassium [Moles/Vol] 4.5 mmol/L 3.5 - 5.1 mmol/L [facility] Sodium [Moles/Vol] 139 mmol/L 135 - 145 mmol/L [facility] Urea nitrogen [Mass/Vol] 50 mg/dL High 7 - 17 mg/dL [facility] CARECOORDon 02-13-2024 [facility] requested PT/OT/ PELLETISING EXTRUDER OPERATOR for PT/OT to see today. Normal [facility] CBC W Auto Differential pane l (Bld)Ordered By: Moon López on 02-13-2024 Basophils (Bld) [#/Vol] 0.0 10*3/uL 0.0 - 0.2 10*3/uL [facility] Basophils/100 WBC (Bld) 0.5 % 0.0 - 2.0 % [facility] Eosinophils (Bld) [#/Vol] 0.1 10*3/uL 0.0 - 0.5 10*3/uL [facility] Eosinophils/100 WBC (Bld) 2.2 % 0.0 - 6.0 % [facility] Erythrocyte distribution width (RBC) [Ratio] 14.5 % 11.5 - 15.0 % [facility] Hematocrit (Bld) [Volume fraction] 29.4 % Low 35.0 - 47.0 % [facility] Hemoglobin (Bld) [Mass/Vol] 9.3 g/dL Low 11.7 - 16.0 g/dL [facility] Immature granulocytes (Bld) [#/Vol] 0.0 10*3/uL NINF - 0.1 10*3/uL [facility] Immature granulocytes/100 WBC (Bld) 0.3 % 0.0 - 2.0 % [facility] Interpretation and review of laboratory results Abnormal [facility] IPF 4 [facility] Lymphocytes (Bld) [#/Vol] 0.8 10*3/uL Low 1.0 - 4.3 10*3/uL [facility] Lymphocytes/100 WBC (Bld) 11.6 % Low 15.0 - 45.0 % [facility] MCH (RBC) [Entitic mass] 29.8 pg 26.0 - 34.0 pg [facility] MCHC (RBC) [Mass/Vol] 31.6 % 30.5 - 36.0 % [facility] MCV (RBC) [Entitic vol] 94.2 fL 77.0 - 99.0 fL [facility] Monocytes (Bld) [#/Vol] 0.4 10*3/uL 0.0 - 0.9 10*3/uL [facility] Monocytes/100 WBC (Bld) 6.5 % 5.0 - 13.0 % [facility] Neutrophils (Bld) [#/Vol] 5.1 10*3/uL 1.8 - 7.5 10*3/uL [facility] Neutrophils/100 WBC (Bld) 78.9 % 38.0 - 82.0 % [facility] Nucleated RBC/100 WBC (Bld) [Ratio] 0.0 % [facility] Platelet mean volume (Bld) [Entitic vol] 13.2 fL High 9.0 - 12.7 fL [facility] Platelets (Bld) [#/Vol] 67 10*3/uL Low 140 - 440 10*3/uL [facility] RBC (Bld) [#/Vol] 3.12 10*6/uL Low 3.80 - 5.2 0 10*6/uL [facility] WBC (Bld) [#/Vol] 6.5 10*3/uL 3.6 - 10.7 10*3/uL [facility] CBC WITH AUTO DIFFERENTIALon 02-13-2024 Basophils (Bld) [#/Vol] 0.0 10*3/uL Normal 0.0-0.2 [facility] Comment on above: Performed By: #### L [id number] #### Event Lighting Specialist: PAO CARDOZO ([phone]) [facility] ([facility]) [address] [place] [address] Basophils/100 WBC (Bld) 0.5 % Normal 0.0-2.0 S [facility] Comment on above: Performed By: #### L [id number] #### Event Lighting Specialist: PAO CARDOZO ([phone]) [facility] ([facility]) [address] [place] [address] Eosinophils (Bld) [#/Vol] 0.1 10*3/uL Normal 0.0-0.5 [facility] Comment on above: Performed By: #### L [id number] #### Event Lighting Specialist: PAO CARDOZO ([phone]) [facility]) [address] [place] [address] Eosinophils/100 WBC (Bld) 2.2 % Normal 0.0-6.0 [facility] Comment on above: Performed By: #### L [id number] #### Event Lighting Specialist: PAO CARDOZO ([id number]) [facility] ([facility]) [address] [place] [address] Erythrocyte distribution width (RBC) [Ratio] 14.5 % Normal 11.5-15.0 [facility] Comment on above: Performed By: #### L [id number] #### Event Lighting Specialist: PAO CARDOZO ([id number]) [facility]) [address] [place] [address] Hematocrit (Bld) [Volume fraction] 29.4 % Low 35.0-47.0 [facility] Comment on above: Performed By: #### L [id number] #### Event Lighting Specialist: PAO CARDOZO ([id number]) [facility]) [address] [place] [address] Hemoglobin (Bld) [Mass/Vol] 9.3 g/dL Low 11.7-16.0 [facility] Comment on above: Performed By: #### L [id number] #### Event Lighting Specialist: PAO CARDOZO ([phone]) [facility]) [address] [place] [address] IMMATURE GRANS % 0.3 % Normal 0.0-2.0 [facility] Comment on above: Performed By: #### L [id number] #### Event Lighting Specialist: PAO CARDOZO ([phone]) [facility]) [address] [place] [address] IMMATURE GRANS ABSOLUTE 0.0 10*3/uL Normal <0.1 [facility] Comment on above: Performed By: #### L [id number] #### Event Lighting Specialist: PAO CARDOZO ([phone]) [facility]) [address] [place] [address] [place] IPF 4 Normal [facility] Comment on above: Performed By: #### L [id number] #### Event Lighting Specialist: PAO CARDOZO ([id number]) [facility]) [address] [place] [address] Lymphocytes (Bld) [#/Vol] 0.8 10*3/uL Low 1.0-4.3 [facility] Comment on above: Performed By: #### L [id number] #### Event Lighting Specialist: PAO CARDOZO ([phone]) [facility]) [address] [place] [address] Lymphocytes/100 WBC (Bld) 11.6 % Low 15.0-45.0 [facility] Comment on above: Performed By: #### L [id number] #### Event Lighting Specialist: PAO CARDOZO ([phone]) [facility]) [address] [place] [address] MCH (RBC) [Entitic mass] 29.8 pg Normal 26.0-34.0 [facility] Comment on above: Performed By: #### L [id number] #### Event Lighting Specialist: PAO CARDOZO ([phone]) [facility]) [address] [place] [address] MCHC 31.6 % Normal 30.5-36.0 [facility] Comment on above: Performed By: #### L [id number] #### Event Lighting Specialist: PAO CARDOZO ([phone]) [facility]) [address] [place] [address] MCV (RBC) [Entitic vol] 94.2 fL Normal 77.0-99.0 S [facility] Comment on above: Performed By: #### L [id number] #### Event Lighting Specialist: PAO CARDOZO ([id number]) [facility]) [address] [place] [address] Monocytes (Bld) [#/Vol] 0.4 10*3/uL Normal 0.0-0.9 [facility] Comment on above: Performed By: #### L [id number] #### Event Lighting Specialist: PAO CARDOZO ([id number]) [facility] ([facility]) [address] [place] [address] Monocytes/100 WBC (Bld) 6.5 % Normal 5.0-13.0 S [facility] Comment on above: Performed By: #### L [id number] #### Event Lighting Specialist: PAO CARDOZO ([phone]) [facility]) [address] [place] [address] NEUTROPHILS ABSOLUTE 5.1 10*3/uL Normal 1.8-7.5 [facility] Comment on above: Performed By: #### L [id number] #### Event Lighting Specialist: PAO CARDOZO ([phone]) [facility]) [address] [place] [address] Neutrophils/100 WBC (Bld) 78.9 % Normal 38.0-82.0 [facility] Comment on above: Performed By: #### L [id number] #### Event Lighting Specialist: PAO CARDOZO ([phone]) [facility] ([facility]) [address] [place] [address] NRBC 0.0 /100 WBCs Normal 0.0-2.0 [facility] Comment on above: Performed By: #### L [id number] #### Event Lighting Specialist: PAO CARDOZO ([id number]) [facility] ([facility]) [address] [place] [address] Platelet mean volume (Bld) [Entitic vol] 13.2 fL High 9.0-12.7 [facility] Comment on above: Performed By: #### L [id number] #### Event Lighting Specialist: PAO CARDOZO ([id number]) [facility] ([facility]) [address] [place] [address] Platelets (Bld) [#/Vol] 67 10*3/uL Low 140-440 S [facility] Comment on above: Performed By: #### L [id number] #### Event Lighting Specialist: PAO CARDOZO ([phone]) [facility] ([facility]) [address] [place] [address] RBC (Bld) [#/Vol] 3.12 10*6/uL Low 3.80-5.20 [facility] Comment on above: Performed By: #### L [id number] #### Event Lighting Specialist: PAO CARDOZO ([id number]) [facility] ([facility]) [address] [place] [address] WBC (Bld) [#/Vol] 6.5 10*3/uL Normal 3.6-10.7 [facility] Comment on above: Performed By: #### L [id number] #### Event Lighting Specialist: PAO CARDOZO ([phone]) [facility] ([facility]) [address] [place] [address] ECG 12-LEADon 02-13-2024 ECG 12-LEAD IMPRESSION: Sinus rhythm Atrial premature complex LVH by voltage Nonspecific T abnormalities, lateral leads Electronically Signed On 02-13-2024 10:34:21 EDT by Sixto Limon Normal [facility] FERRITINon 02-13-2024 Ferritin [Mass/Vol] 50 ng/mL Normal 11-264 [facility] Comment on above: Performed By: #### L AB103, [id number], LAB15, LAB20, LAB68, LAB67, LAB69 ####Event Lighting Specialist: PAO CARDOZO ([phone])[facility] ([facility])[address] [place] [address] FOLATEon 02-13-2024 FOLATE RESULT >20.0 Normal >=2.9 [facility] Comment on above: Performed By: #### L AB103, [id number], LAB15, LAB20, LAB68, LAB67, LAB69 ####Event Lighting Specialist: PAO CARDOZO ([phone])[facility] ([facility])[address] [place] [address] Ferritin [Mass/Vol]on 2023 Interpretation and review of laboratory results Normal [facility] HEPATIC FUNCTION PANELon Albumin [Mass/Vol] 3.1 g/dL Low 3.5-5.0 [facility] Comment on above: Performed By: #### L AB103, [id number], LAB15, LAB20, LAB68, LAB67, LAB69 ####Event Lighting Specialist: PAO CARDOZO ([phone])[facility] ([facility])[address] [place] [address] ALP [Catalytic activity/Vol] 59 U/L Normal 38-126 [facility] Comment on above: Performed By: #### L AB103, [id number], LAB15, LAB20, LAB68, LAB67, LAB69 ####Event Lighting Specialist: PAO CARDOZO ([phone])[facility] ([facility])[address] [place] [address] ALT [Catalytic activity/Vol] 17 U/L Normal 0-34 [facility] Comment on above: Performed By: #### L AB103, [id number], LAB15, LAB20, LAB68, LAB67, LAB69 ####Event Lighting Specialist: PAO CARDOZO ([phone])[facility] ([facility])[address] [place] [address] AST [Catalytic activity/Vol] 30 U/L Normal 15-46 [facility] Comment on above: Performed By: #### L AB103, [id number], LAB15, LAB20, LAB68, LAB67, LAB69 ####Event Lighting Specialist: PAO CARDOZO ([phone])[facility])[address] [place] [address] Bilirubin [Mass/Vol] 0.7 mg/dL Normal 0.2-1.3 [facility] Comment on above: Performed By: #### L AB103, [id number], LAB15, LAB20, LAB68, LAB67, LAB69 ####Event Lighting Specialist: PAO CARDOZO ([phone])[facility] ([facility])[address] [place] [address] Bilirubin.indirect [Mass/Vol] 0.0 mg/dL Normal 0.0-0.3 [facility] Comment on above: Performed By: #### L AB103, [id number], LAB15, LAB20, LAB68, LAB67, LAB69 ####Event Lighting Specialist: PAO CARDOZO ([phone])[facility])[address] [place] [address] Protein [Mass/Vol] 6.2 g/dL Low 6.3-8.2 [facility] Comment on above: Performed By: #### L AB103, [id number], LAB15, LAB20, LAB68, LAB67, LAB69 ####Event Lighting Specialist: PAO CARDOZO ([phone])[facility] ([facility])[address] [place] [address] HEPATITIS B SURFACE ANTIGENo n 02-13-2024 HEPATITIS B VIRUS SURFACE AG Not detected Normal Not Detected [facility] Comment on above: Performed By: #### L [id number], [id number] ####Event Lighting Specialist: PAO CARDOZO ([phone])[facility])[address] [place] [address] HEPATITIS C ANTIBODYon 02-12 HCV Ab IA Ql Not detected Normal Not Detected [facility] Comment on above: Result Comment: Toña ents with DETECTED Hepatitis C Ab results should have a new specimen submitted for supplemental testing with a Hepatitis C Quantitative RNA assay (viral load), if clinically indicated. Performed By: #### L [id number], [id number] ####Event Lighting Specialist: PAO CARDOZO ([phone])[facility])[address] [place] [address] Hepatic function 2000 panelo n 02-13-2024 Albumin [Mass/Vol] 3.1 g/dL Low 3.5 - 5.0 g/dL [facility] ALP [Catalytic activity/Vol] 59 U/L 38 - 126 U/L [facility] ALT [Catalytic activity/Vol] 17 U/L 0 - 34 U/L [facility] AST [Catalytic activity/Vol] 30 U/L 15 - 46 U/L [facility] Bilirubin [Mass/Vol] 0.7 mg/dL 0.2 - 1 .3 mg/dL [facility] Bilirubin.conjugated [Mass/Vol] 0.0 mg/dL 0.0 - 0.3 mg/dL [facility] Protein [Mass/Vol] 6.2 g/dL Low 6.3 - 8.2 g/dL [facility] Laboratory - Chemistry and C hemistry - challengeon 02-13-2024 Cobalamin (Vitamin B12) [Mass/Vol] 526 pg/mL 239 - 931 pg/mL [facility] Folate [Mass/Vol] ng/mL 2.9 - PINF ng/mL [facility] Ferritin [Mass/Vol] 50 ng/mL 11 - 264 ng/mL [facility] Magnesium [Mass/Vol] 1.9 mg/dL 1.6 - 2 .3 mg/dL [facility] Laboratory - Microbiology an d Antimicrobial susceptibilityon 02-13-2024 HBV surface Ag IA Ql Not detected Not Detected [facility] HCV Ab IA Ql Not detected Not Detected [facility] Comment on above: Patients with DETECT ED Hepatitis C Ab results should have a new specimen submitted for supplemental testing with a Hepatitis C Quantitative RNA assay (viral load), if clinically indicated. MAGNESIUMon 02-13-2024 Magnesium [Mass/Vol] 1.9 mg/dL Normal 1.6-2.3 [facility] Comment on above: Performed By: #### L AB103, [id number], LAB15, LAB20, LAB68, LAB67, LAB69 ####Event Lighting Specialist: PAO CARDOZO ([phone])[facility] ([address] No Panel Informationon 02-12 Interpretation and review of laboratory results Normal [facility] Left CCA dist EDV 12.8 cm/s [facility] ealt Left CCA dist PSV 89.1 cm/s [facility] Left CCA mid EDV 9.60 cm/s [facility] Left CCA mid PSV 72.80 cm/s [facility] Left CCA prox EDV 11.2 cm/s [facility] Left CCA prox PSV 110.2 cm/s [facility] Left ECA EDV 0.00 cm/s [facility] Left ECA PSV 130.8 cm/s [facility] Left ICA dist EDV 20.5 cm/s [facility] Left ICA dist PSV 114.8 cm/s [facility] Left ICA mid EDV 20.5 cm/s [facility] Left ICA mid PSV 126.2 cm/s [facility] Left ICA prox EDV 25.1 cm/s [facility] Left ICA prox PSV 112.5 cm/s [facility] Left ICA/CCA PSV 1.73 [facility] Left subclavian mid EDV 12.6 cm/s [facility] Left subclavian mid PSV 197.8 cm/s [facility] Left vertebral EDV 14.60 cm/s [facility] Left vertebral PSV 64.8 cm/s [facility] Right CCA dist EDV 8.5 cm/s [facility] Right cca dist PSV 81.9 cm/s [facility] Right CCA mid EDV 10.60 cm/s [facility] Right CCA mid PSV 88.40 cm/s [facility] Right CCA prox EDV 12.8 cm/s [facility] Right CCA prox PSV 103.7 cm/s [facility] Right ECA EDV 12.60 cm/s [facility] Right ECA PSV 179.8 cm/s [facility] Right ICA dist EDV 17.7 cm/s [facility] Right ICA dist PSV 84.2 cm/s [facility] Right ICA mid EDV 11.2 cm/s [facility] Right ICA mid PSV 89.1 cm/s [facility] Right ICA prox EDV 31.1 cm/s [facility] Right ICA prox PSV 202.5 cm/s [facility] Right ICA/CCA PSV 2.29 [facility] Right subclavian mid EDV 9.7 cm/s [facility] Right subclavian mid PSV 74.4 cm/s [facility] Right vertebral EDV 10.00 cm/s [facility] Right vertebral PSV 35.3 cm/s [facility] 60-69% stenosis in t he right internal carotid artery. Moderate, heterogeneous and calcific plaque in the right internal carotid artery. <50% stenosis in the left internal carotid artery. Mild, heterogeneous and calcific plaque in the left internal carotid artery. Normal antegrade flow involving the right vertebral artery. Normal antegrade flow involving the left vertebral artery. Right clavicle to bifurcation measurement: 3.5 cm. Right Carotid Common Carotid Artery: Patent. Mild plaque. Internal Carotid Artery: 60-69% stenosis in the proximal ICA. Moderate, heterogeneous and calcific plaque. External Carotid Artery: Patent. Vertebral Artery: Flow is antegrade. Subclavian Artery: Normal. Vertebral is exhibiting a pre steal waveform. Left Carotid Common Carotid Artery: Patent. Mild and heterogeneous plaque. Internal Carotid Artery: <50% stenosis. Mild, heterogeneous and calcific plaque. External Carotid Artery: Patent. Vertebral Artery: Flow is antegrade. Subclavian Artery: Normal. Associate Accountant Details A obregon scale, color Doppler imaging and spectral Doppler analysis ultrasound was performed. During the study longitudinal and transverse views were obtained. Pulsed wave doppler was performed. The exam was performed with the patient in the supine position. Overall the study quality was adequate. Study was technically difficult due to: acoustic shadowing, body habitus and bedside exam. 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 No evidence of deep vein thrombosis in the left lower extremity. No evidence of deep vein or superficial vein thrombosis in the right lower extremity. Vessels demonstrate normal compressibility, color filling, and phasic and spontaneous flow. Right Lower Venous No evidence of deep vein or superficial vein thrombosis. The common femoral, saphenofemoral junction, femoral, popliteal, gastrocnemius, soleal, greater saphenous, posterior tibial, and peroneal veins were imaged in the transverse view and showed normal compressibility. The common femoral, middle femoral, and popliteal veins were imaged in the longitudinal view and showed normal color filling and normal phasic and spontaneous flow. Left Lower Venous No evidence of deep vein thrombosis in the left lower extremity. Common Femoral Vein: Patent, normal phasicity, spontaneous, normal augmentation, compressible. Greater Saphenous Vein: Chronic non-occlusive thrombus located in the thigh region. Calf and ankle patent, compressible. Saphenofemoral Junction: Patent, compressible. Small Saphenous Vein: Patent, compressible. Profunda Femoral Vein: Patent. Femoral Vein: Patent, normal phasicity, spontaneous, normal augmentation, compressible. Popliteal Vein: Patent, normal phasicity, spontaneous, normal augmentation, compressible. Gastrocnemius Vein: Patent, compressible. Soleal Vein: Patent, compressible. Posterior Tibial Vein: Patent, compressible. Peroneal Vein: Patent, compressible. Associate Accountant Details A obregon scale, color Doppler imaging and spectral Doppler analysis ultrasound was performed. During the study longitudinal and transverse views were obtained. Pulsed wave doppler was performed. The exam was performed with the patient in the supine position. Overall the study quality was adequate. Study was technically difficult due to: body habitus, IV or catheters and bedside exam. CV CPACS Interpretation and review of laboratory results Normal [facility] Sinus rhythm Atrial premature complex LVH by voltage Nonspecific T abnormalities, lateral leads Electronically Signed On 02-13-2024 10:34:21 EDT by Sixto Limon Sixto Segura MD - 02/13/2024 IMPRESSION: Sinus rhythm Atrial premature complex LVH by voltage Nonspecific T abnormalities, lateral leads Electronically Signed On 02-13-2024 10:34:21 EDT by Sixto Limon [facility] Kris Shahid MD 02/13/2024 9:47 AM [facility] [address] [place] [id number] ROUTINE EEG REPORT Patient Name: Lucho Gillespie : 1940 Date of Study: 02/13/24 Duration Recorded: 22 minutes EEG#: [id number] HEATING EQUIPMENT INSTALLER: Rufina Beltran PROVIDER REQUESTING STUDY: Charlie Syed MD REASON FOR EXAM: Evaluate for seizures DIAGNOSIS TAG: Stroke Remote (RS) HISTORY: Lucho Gillespie is a 83 y.o. female patient with hypertension, renal artery stenosis, CKD and previous ischemic stroke-[facility] of sudden onset of right hemiparesis and aphasia. Received the initial phone call from OSH ER physician-patient had been given IV tenecteplase within the window at [place] ED. patient was markedly hypertensive with a systolic blood pressure in the 200s requiring Cardene infusion before she was able to safely receive the IV tenecteplase dose. CTA head and neck and noncontrast CT head revealed no acute LVO. Initial NIHSS of 14-patient was transported by ground ED to ED for stroke team evaluation. NIHSS improved to 8-patient with right arm drift, expressive and receptive aphasia, and a visual field deficit. On further evaluation patient was noted to have left eye ptosis as well as a large left pupil that was 4 mm and nonreactive to light, compared to the right pupil which was 2 mm and briskly reactive to light. Although this would be concerning for intracranial compression, patient's mental status was alert and interactive and neurological exam is actually improved. She was aphasic and unable to tell us if this was a previous finding due to for example and eye surgery. Therefore we obtained a stat CT head to ensure there was no hemorrhagic transformation after tenecteplase. Stat CT head revealed evidence of an old ischemic stroke with encephalomalacia in the left parietal occipital cortex. But there was no acute intracranial hemorrhage. Patient was taken to T2 ICU for continued post tenecteplase care-please see stroke order set. MEDICATIONS: Current Facility-Administered Medications Medication Dose Route Frequency Provider Last Rate Last Admin acetaminophen (Tylenol) tablet 650 mg 650 mg Oral q6h PRN Jose C Kiza, DO Or acetaminophen (Tylenol) suppository 650 mg 650 mg Rectal q6h PRN Jose C Kiza, DO amLODIPine (Norvasc) tablet 5 mg 5 mg Oral Daily Rosario Pratt, DO 5 mg at 02/12/241857 aspirin EC tablet 81 mg 81 mg Oral Daily Charlie Syed MD 81 mg at 02/12/241857 atorvastatin (Lipitor) tablet 40 mg 40 mg Oral Nightly Jose C Kiza, DO bisacodyl (Dulcolax) suppository 10 mg 10 mg Rectal Daily PRN Jose C Kiza, DO busPIRone (Buspar) tablet 10 mg 10 mg Oral BID Charlie Syed MD 10 mg at 02/12/242009 cloNIDine (Catapres) tablet 0.1 mg 0.1 mg Oral BID Charlie Syed MD 0.1 mg at 02/13/24 0602 hydrALAZINE (Apresoline) injection 10 mg 10 mg IntraVENous q4h PRN Charlie Syed MD 10 mg at 02/12/24 1806 labetalol (Normodyne,Trandate) injection 10 mg 10 mg IntraVENous q1h PRN Charlie Syed MD 10 mg at 02/12/24 1725 ondansetron ODT (Zofran-ODT) disintegrating tablet 4 mg 4 mg Oral q8h PRN Jose C Kiza, DO Or ondansetron (Zofran) injection 4 mg 4 mg IntraVENous q6h PRN Jose C Kiza, DO polyethylene glycol (PEG) 3350 (Miralax) packet 17 g 17 g Oral Daily PRN Jose C Kiza, DO sodium chloride 0.9 % infusion 5-250 mL/hr IntraVENous PRN Jose C Kiza, DO sodium chloride 0.9 % infusion 50 mL/hr IntraVENous Continuous Charlie Syed MD 50 mL/hr at 02/12/24 1622 50 mL/hr at 02/12/24 1622 sodium chloride 0.9% (NS) flush 5-40 mL 5-40 mL IntraVENous q12h Jose C Kiza, DO 10 mL at 02/12/24 2333 sodium chloride 0.9% (NS) flush 5-40 mL 5-40 mL IntraVENous PRN Jose C Kiza, DO spironolactone (Aldactone) tablet 25 mg 25 mg Oral Daily Rosario Pratt, DO 25 mg at 02/12/242009 TECHNICAL ASPECTS: This routine scalp EEG study with video was carried out at [facility]. Scalp electrodes were positioned in person by an computer technologist, following patient education, according to the 10-20 International system of electrode placement and maintained for integrity and quality of the recording. EEG data was recorded continuously and digitally stored. The computer technologist reviewed all automated detections and manual events and prepared the data for archiving and provider review. Referential and bipolar montages were used for review. TECHNOLOGIST NOTES: No skull or scalp defects were observed. BACKGROUND ACTIVITY: Posterior background activity: A continuous organized and well-modulated 8.5-9.5 Hz, 20-40 uV rhythm was seen over the posterior head regions bilaterally with a right sided predominance. Beta range: Fronto-centrally predominant beta ran (more content not included)... daPulse Interpretation and review of laboratory results Abnormal [facility] Better [employer] Interpretation and review of laboratory results Normal [facility] BG Medicine Better Bean No Panel InformationOrdered By: Juan Bacon on 02-13-2024 Case Report Peripheral Smear Marbin e: [id number] Authorizing Provider: Charlie Syed MD Collected: 02/13/2024413 Ordering Location: [facility] Surgical Trauma Neuro Received: 02/13/2024423 Intensive Care Unit STN ICU T2 Pathologist: Juan Bacon, Specimen: Blood, Venous [employer]in Phone: Pathologist Interpretation Location [facility], [address] [place] [address], CLIA: [id number]; Joint Commission: [facility]; CAP: [id number] iT[employer]in Phone: Pathology report final diagnosis Narrative b8rirDLmDDFojEKeVSVwMQm pnxRhYFPnqSXfD0LjiilkDI waSK7cFP8kjHsihRMkuXIzO IKdIjHpx6frg403gMTka2wi UVINNAtjNLNJMWu6q6urPIC UBWUyEB5vO572OXFvLRNngB XtWRGhWwX8Y495HZVfHSzxd gpazH8bems5cHylQ15ta3D1 VlvqP997KOlnjKudbKMfYgs pa2nscXI7XApgj5KpPFS1XD u9VUr2DFzncYH4bUPlrDvxa RNjZO8pi4fqvGG9czVrEZN1 lSbijVH9yWenwrjay7slbRW 9hEU3DRmwpMD1LJudCfZiQ9 bbRNCbqA8rY29gT0haMOMxr EojYOimBQBaiPN5EQG2HMUk v9lgLHYjdYTppDXjFaMfOBJ 5QmU9HApdDDW5gQbqwWN0NB oqrZ6qYDQpV52aStJwxLefA jBcZmktMzYwfXtcbGlzdGxl dmVsXGxldmVsbmZjMjNcbGV 2BQgmQsUjQdGyjVQ0GSqlNa HhaIR7APjveJXssKJ6YVfwi WH3SRe5XHi1HUzbYK97tSmr jRY9JPtxiY8gMAQwE12aFaG zoLscMBzmDQXzTOE1QC97CT oqs7FnJRQbpYpiEAFzjW5nE zIzXGxldmVsbmZjbjIzXGxl pxGiqxGgWYxmyrTcc9JxgnV bvCD5WGjzamNqjPG9iLrvMC VfaJ3jKLY3OR01cCcczNB9C DywmL0tGLMgK26uIuIouDfe GTThNQTdIDV1VB22JPulg6Y mMOVipYmgZAHmjN1xEmQaMZ xldmVsbmZjbjIzXGxldmVsa bHwYVilzkUba9JedwMgmXW0 ADlfrjAnzAO7jTgeZJEdlDk fYrIdSCc9FSc1v5bqIQUtgW 81fPZpxnW9rDyoIGzptZN6L jBcZmktMzYwfXtcbGlzdGxl dmVsXGxldmVsbmZjMjNcbGV 9KOelBgXiTlAmrVU5ZKqoRv LsxCT0NIvumDLxdAO9HOcxw WX9NNu8WEw8ZAxcNG10aRee cNC2YHvsgR9oHDRfD84sDsZ nsMfrIxFmKACaOJF4PE91LK hzh6WtPFLcxBnmHFCsqU6jZ zIzXGxldmVsbmZjbjIzXGxl qkAtdeEcEDbvnxOdp3CzvfM inTS0SLpzdgMouGX5rCbnCK DxrV8vAJV1IP76yKgpuJR5O XnjtR4bJFPsY74vBeIcjXqd WXLmDXZkCGO2CM31KHirf3F cUFOiiYbbJTMiqR6oBpZqVA xldmVsbmZjbjIzXGxldmVsa iUwKJtelkMzt7RyhqSqjRW9 NVaxwuGkoPN3xMwiUHChpJt wChFyEEs0XKi7x3vgJTKotL 62pUHgnkJ2bOsxMNocwHG9H DBcZmktMzYwfXtcbGlzdGxl dmVsXGxldmVsbmZjMjNcbGV 6RBhdHiOqLnVuvFD3HQjnAo EsyDV9WLxdvKMsrVT1ZXanw OQ1NCb3AXo6YSmlSI05tNou nQJ6PZprfU9mEPTgR30iBrC hdEz9FQBsCPWvPYF9QM20DD tll0XwWFQzoSkkSNYspB1aZ zIzXGxldmVsbmZjbjIzXGxl lkLpsoLaXGwbtmWkp6VygyZ prZD1BBhyofEneXR3kErhPF XiwV3cTNF1ON96kLcerIZ9Y HsmfK9nFQDrL91uFvUruUq6 UGRbDCDaIVZ7DZ41pTcyIxy bcWI0x1MylbFvQMN0XWVcPD lbCqommLS0e9EfmiLyUAYrk TuigKwrANV7EMXlYxT2APrf v4YycoVbziirVARdrE59ZXk bmlN4nXtrGRYbwaapNfM9SA xgNWBldkjeSHx4CAgkFZQoe JX0ZEVgkXDvY9UmHYZsMT4q yyh8FZD2XDpmLLAuLtV9XVM pyPNbAEOyoUjzDMiec683FE D0RtByZVZnnbMqeBixtG8mS nMyMCBQZXJpcGhlcmFsIGJs p78wCPXiHDFeVsvqSCUapMe oInFfWlhiSqQxYHugenM3GS conmWgbVi5eUTkoZyrkY1sU rHzUHKUy5Ooq9O4qKlfOULd k4Axb7Hjwp1coLApKR2feFl dEykmHGYjHGubm39um0N4wV 5jYW9zJX9qcKAwNR9ggMCnn HltcGhvcGVuaWEuXHBhciBS aLuuUM96zVAxwB2bZJScr3Z qLQIrmFPhfDNjt26koYUqGX XwR5pavgAfDCPeXWXyaFkma FghdaBbqO7bDRzlnNWpLNUu WlXydKKlPOBfFI9fLPPmFeB mcXBkejjiROYvs7Bqg6QkdC 3wtYDrgOB3wU6wONUlgsGpI 2Ugu68kQHDkyhDxa4SxZ2ki j64pKsWzquDuCQ7lGPCkmbd dd3QfeUTaT32xIUh7aU3oeu 4qjREkLGAlSZB6ftKnyfVeU FkrI9WjztGko5PsjYXozYHx HLXzNJ0ajMCjDZWreKzwbAT vLfbwPJXeFe2dxU1kbsFyn3 IijI4fn2MrtQC3b2H1xUEsH QccDSUyIA5gSJUtmo2= [employer] Work Phone: [employer] Work Phone: No Panel InformationOrdered By: Sixto Limon on 02-13-2024 P [place] 40 degrees [employer] Work Phone: MN Interval 191 ms [employer] Work Phone: QRS [place] -1 degrees [employer] Work Phone: QRSD Interval 96 ms [employer] Work Phone: QT Interval 415 ms [employer] Work Phone: QTC Interval 453 ms [employer] Work Phone: T Wave [place] 100 degrees [facility] Better [employer] Work Phone: [facility] Better [employer] Work Phone: Nursing Noteon 02-13-2024 Nursing Note Report called to [address]. Will put patient in for transport. Normal [facility] Nursing Note Dr. Syed talking with patient and family. Normal [facility] PHOSPHORUSon 02-13-2024 Phosphate [Mass/Vol] 4.1 mg/dL Normal 2.5-4.5 [facility] Comment on above: Performed By: #### L AB103, [id number], LAB15, LAB20, LAB68, LAB67, LAB69 ####Event Lighting Specialist: PAO CARDOZO ([phone])[facility] ([address] Phosphate [Moles/Vol]on 02-03 Phosphate [Mass/Vol] 4.1 mg/dL 2.5 - 4 .5 mg/dL [facility] Progress Noteon 02-13-2024 Progress Note ICU Transfer [facility] Transfer Med Reconciliation (resume home meds if able, convert to PO if able) Complete Antibiotics (name, indication, duration, convert to PO if able) None Steroid (indication, duration, convert to PO if able) None Anticipated Peavine Medications (ICU initiated) or Dose Changes and Indication Yes, indication BP regimen, prevent recurrence of HTN emergency Permanently Discontinued Home Medications and Reason for medication contraindication No Camacho Catheter (please remove if able. Note: place DC order) No Central Line (please remove if able. Note: place DC order) No Transfer Discussed with: Dr. Cooley If additional questions for ICU team within 24 hours of ICU transfer, page myself for clarifications. Normal [facility] Progress Note Speech-Language Pathology SPEECH LANGUAGE PATHOLOGY [facility] Language Treatment Note Patient Name: Lucho Gillespie Evaluation Date: 02/13/2024 Date of : 1940 Admission Date: 02/11/2024 11:08 PM Age: 83 y.o. Room/Bed: T2/T2-213 A Subjective Patient alert and cooperative. Seen upright in bed. Visitors at bedside - daughter. Spoke with RN Markie who cleared pt for treatment. Pain: RN managing pain. PPE Worn: surgical mask, gloves Objective & Assessment Language Treatment # of Activities: 1 Language Activity 1: Verbal explanation Patient completes multiple activities to increase verbal explanation. Patient is able to state why multiple sentences don't make sense and how to make them correct. Patient completes this activity independently with 100% accuracy. Patient is able to state a solution if a problem occurs from a given scenario with 100% accuracy and minimal cueing. Patient is asked to list at least three items for each given scenario things to do on the weekend. patient requires minimal cueing, but overall is able to complete this activity with 90% accuracy. Plan & Recommendations Plan: Please re-consult if indicated. 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 Speech therapy to sign off at this time. D/C Recommendations: OP speech therapy if desired Education Education Given: communication Given To: patient and daughter Response: verbalizes understanding Goals Patient Stated Goal: To rest. Encounter Problems Encounter Problems (Active) PELLETISING EXTRUDER OPERATOR Misc Verbal Explanation (Completed) Start: 02/12/24 Expected End: 02/26/24 Resolved: 02/13/24 Sequencing (Adequate for Discharge) Start: 02/12/24 Expected End: 02/26/24 Therapy Time PELLETISING EXTRUDER OPERATOR Individual Minutes Time In: 1445 Time Out: 1455 Minutes: 10 Carol Brian [facility] Progress Note --- Attestation signed by Robby Rosenberg MD at 02/13/2024 5:32 PM I have personally seen the patient and examined along with the resident. I personally obtained the mayen and relevent portions of the history and performed physical exam. I reviewed the chart including MAR, labs, and radiology and agree with the patient's plan of action as discussed with the resident. This note reflects my plan of care as I have edited the note to reflect my findings and my assessment and plan. ROS documentation was reviewed and negative unless otherwise stated in HPI. Chief Complaint: Acute ischemic stroke Additional pertinent interval history, ROS, and physical exam findings: Patient seen and examined. Awake, alert, oriented. Feeling improved. Denies further complaints. Moving extremities equally. Non-labored breathing. Assessment and Plan: Hypertensive Emergency in setting of prior strokes Transient aphasia/R hemiparesis s/p TNK Hx Remote L CHIEF JAILER stroke Thrombocytopenia CKD HLD Morbid obesity LISA - patient doing well today - US pending to rule out thrombosis - Renal artery US pending to evaluate stent patency - SBP goal <160 - continue home chlorthalidone daily, increase amlodipine, continue aldactone and clonidine. PRN meds available. - continue ASA/Statin - holding DVT ppx given thrombocytopenia - Hem/onc consult for thrombocytopenia and follow up. - PT/OT/speech eval - needs outpatient event monitoring to rule out etiologies such as Afib - outpatient neurology follow up. Code Status: Full Code Disposition: Transfer to [facility] Time spent preparing to see the patient, obtaining/reviewing separately obtained history, completing an appropriate medical examination of the patient, ordering medications/tests/proce dures, documenting clinical information on the EMR, and/or coordinating care is a subsequent visit: 50 minutes (Level III). Robby Rosenberg MD Pulmonary and Critical Care Medicine Attending Pager #[phone] ICU Progress Note Name: Lucho Gillespie : 1940(83 y.o.) Date: 02/13/24 Team: MICU Attending: Dr. Robby Rosenberg Subjective: Hospital Summary: Lucho Gillespie is an 83yo female w/PMHx of hypertension, renal artery stenosis, CKD and previous ischemic stroke who presented to [facility] as an OSH transfer from [place] for presumed CVA (NIH of 14) s/p TNK. Pt was found to have initial L facial and RUE weakness w/aphasia at SNF and brought to the hospital. Pt was also noted to be hypertensive w/SBP in 200's, started on a cardene gtt prior to TNK. Upon arrival, pt's NIH was 8, with partial hemianopia on the right, L facial palsy, RUE weakness, and tactile extinction/inattention. Anisocoria was noted that night, prompting head CT to r/o hemorrhage, in which it was negative. 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 Later it was learned from family that anisocoria has been present since prior stroke in 2021. Interval Events: Re-evaluation of pt shows resolution of facial weakness, UE weakness. Remaining are aphasia, improved, and her baseline anisocoria. Pt's LUE also became erythemetous w/purple discoloration, sensation in tact and painless, but venous duplex US of LUE was negative. MRI revealed remote L CHIEF JAILER infarct w/small lacunar ichemia in cerebellum and L frontal lobe. No evidence of new stroke. Pt deemed to not have had a stroke, but HTN emergency with stroke recrudescence. EEG negative for seizure activity, confirmed voltage asymmetry on the left posterior quadrant aligning w/prior stroke. TTE showed no embolic source, EF of 77%. US of Carotid Artery BL ordered, but not completed. Pt's HTN improved in that SBP<180 off Cardene gtt. Resumed much of her home medication, added amlodipine 10mg, and today adding chlorthalidone but 12.5mg daily rather than 25mg every other day. Thrombocytopenia noted, per family, this was noted in nephrology labs a few weeks ago OP and hematology referral was placed. Neurology ordered peripheral smear and duplex US of BL LE to r/o consumptive coagulopathy. Currently not on prophylaxis for DVT as a result. Pt stable and is cleared for transfer to [facility] for further HTN regimen and thrombocytopenia workup. Scheduled Meds:amLODIPine, 10 mg, Oral, Daily aspirin, 81 mg, Oral, Daily atorvastatin, 40 mg, Oral, Nightly busPIRone, 10 mg, Oral, BID chlorthalidone, 12.5 mg, Oral, Daily cloNIDine, 0.1 mg, Oral, BID sodium chloride 0.9%, 5-40 mL, IntraVENous, q12h spironolactone, 25 mg, Oral, Daily Continuous Infusions: Objective: Last Vitals: BP MAP (!) 170/58 (02/13/24 1000) 91 (02/13/24 1000) Arterial BP MAP Temp 36.8 ? (more content not included)... Normal [facility] VITAMIN B12on 02-13-2024 Cobalamin (Vitamin B12) [Mass/Vol] 526 pg/mL Normal 239-931 [facility] Comment on above: Performed By: #### L AB103, [id number], LAB15, LAB20, LAB68, LAB67, LAB69 ####Event Lighting Specialist: PAO CARDOZO ([phone])[facility] ([facility])[address] [place] [address] Vital signsOrdered By: Hosea Limon on 02-13-2024 Heart rate 72 /min bpm [facility] Work Phone: BASIC METABOLIC PANELon Anion gap [Moles/Vol] 7 mmol/L Normal 3-13 [facility] Comment on above: Performed By: #### L AB103, [id number], LAB15, LAB18, LAB20, [id number] ####Event Lighting Specialist: PAO CARDOZO ([phone])[facility])[address] [place] [address] Calcium [Mass/Vol] 8.8 mg/dL Normal 8.4-10.4 [facility] Comment on above: Performed By: #### L AB103, [id number], LAB15, LAB18, LAB20, [id number] ####Event Lighting Specialist: PAO CARDOZO ([id number])[facility] ([facility])[address] [place] [address] Chloride [Moles/Vol] 108 mmol/L High 98-107 [facility] Comment on above: Performed By: #### L AB103, [id number], LAB15, LAB18, LAB20, [id number] ####Event Lighting Specialist: PAO CARDOZO ([id number])[facility] ([facility])[address] [place] [address] CO2 [Moles/Vol] 24 mmol/L Normal 22-30 [facility] Comment on above: Performed By: #### L AB103, [id number], LAB15, LAB18, LAB20, [id number] ####Event Lighting Specialist: PAO CARDOZO ([id number])[facility] ([facility])[address] [place] [address] Creatinine [Mass/Vol] 2.13 mg/dL High 0.52-1.04 [facility] Comment on above: Performed By: #### L AB103, DOU811, LAB15, LAB18, LAB20, [id number] ####Event Lighting Specialist: PAO CARDOZO ([phone])[facility])[address] [place] [address] GLOMERULAR FILTRATION RATE ML/MIN/1.73 SQ M.PREDICTED 22.9 mL/min/1.73m*2 Low >60.0 [facility] Comment on above: Result Comment: Calc ulation based on the Chronic Kidney Disease Epidemiology Collaboration (CKD-EPI) equation refit without adjustment for race Performed By: #### L AB103, [id number], LAB15, LAB18, LAB20, [id number] ####Event Lighting Specialist: PAO CARDOZO ([phone])[facility])[address] [place] [address] Glucose [Mass/Vol] 159 mg/dL High 70-100 [facility] Comment on above: Performed By: #### L AB103, [id number], LAB15, LAB18, LAB20, [id number] ####Event Lighting Specialist: PAO CARDOZO ([id number])[facility] ([facility])[address] [place] [address] Potassium [Moles/Vol] 4.6 mmol/L Normal 3.5-5.1 [facility] Comment on above: Performed By: #### L AB103, KFS153, LAB15, LAB18, LAB20, [id number] ####Event Lighting Specialist: PAO CARDOZO ([phone])[facility])[address] [place] [address] Sodium [Moles/Vol] 139 mmol/L Normal 135-145 [facility] Comment on above: Performed By: #### L AB103, CTP350, LAB15, LAB18, LAB20, [id number] ####Event Lighting Specialist: PAO CARDOZO ([id number])[facility] ([facility])[address] [place] [address] Urea nitrogen [Mass/Vol] 54 mg/dL High 7-17 [facility] Comment on above: Performed By: #### L AB103, [id number], LAB15, LAB18, LAB20, [id number] ####Event Lighting Specialist: PAO CARDOZO ([id number])[facility] ([facility])[address] [place] [address] Basic metabolic 1998 panelon 02-12-2024 Anion gap [Moles/Vol] 7 mmol/L 3 - 13 mmol/L [facility] Calcium [Mass/Vol] 8.8 mg/dL 8.4 - 10. 4 mg/dL [facility] Chloride [Moles/Vol] 108 mmol/L High 98 - 10 7 mmol/L [facility] CO2 [Moles/Vol] 24 mmol/L 22 - 30 mmol/L [facility] Creatinine [Mass/Vol] 2.13 mg/dL High 0.52 - 1.04 mg/dL [facility] GFR/1.73 sq M.predicted MDRD (S/P/Bld) [Vol rate/Area] 22.9 mL/min/{1.73_m2} Low - PINF [facility] Comment on above: Calculation based on the Chronic Kidney Disease Epidemiology Collaboration (CKD-EPI) equation refit without adjustment for race Glucose [Mass/Vol] 159 mg/dL High 70 - 100 mg/dL [facility] Potassium [Moles/Vol] 4.6 mmol/L 3.5 - 5.1 mmol/L [facility] Sodium [Moles/Vol] 139 mmol/L 135 - 145 mmol/L [facility] Urea nitrogen [Mass/Vol] 54 mg/dL High 7 - 17 mg/dL [facility] CARECOORDon 02-12-2024 [facility] Care Managment Initi al Assessment Date: 02/12/2024 Patient Name: Lucho Gillespie : 1940 Patient Information Source of Information: Patient Echo Vasc Tech Name/Contact Information: Jose C Hernandez Son [phone] Cognition/Language: Confused at baseline Permission given to speak with patient customer care representative/caregive r as indicated: Yes Confirmation of Payer with patient/family: Yes Payer Name: Medicare/Medco : No Confirmation of Primary Care Physician: Confirmed PCP Name: Silvana Deleon Seen in last 2 years?: Yes Primary Caregiver: Self If assistance needed, confirmed caregiver ready, willing and able to care for patient at discharge: Confirmed with: Living Arrangements Current Residence: Number of Floors Number of Entry Steps: Bed/Bath Levels: Facility: [facility] Facility Name: [facility] Plan to Return: Yes Lives with: Other (Comment) (facility) Support Systems: Comments (Other), Children (facility) Activities of Daily Living Ambulation: Assistance Bathing/Dressing: Assistance Elimination/Continence/ Toileting: Assistance Feeding: Independent Who Assists with Activities of Daily Living: Instrumental Activities of Daily Living Prescription Coverage: Yes Pharmacy Used: facility Medication Management: Medication dispenser Who assists with medication securing and setup?: facility Transportation/Shopping : Assistance Provider Transportation/Shopping Assistance Provider Name: facility/family Transportation Mode: Payer provided transport service Needs Assistance with Transportation at Discharge: Yes Meal Preparation: Assistance Provider Meal Prep Assistance Provider Name: facility Laundry/Cleaning: Assistance Provider Laundry/Cleaning Assistance Provider Name: facility Finances/Bill Paying: Assistance Provider Finances/Bill Payer Assistance Provider Name: family Communication: Independent Types of Care Services/Equipment Utilized Care Services: Dialysis Type: NA Durable Medical Equipment: Walker Patient's Goal/Discharge Plan Patient expects to be discharged to: [facility] Discharge Planning Actions: Continue to follow Patient's Choice Rights and [employer] and Collaborative Relationships Disclosed as Indicated for Post-Acute Care: Interdisciplinary Team Engagement: PT/OT Social Work Referral for: Transportation Assistance Additional Information: Chart reviewed. Patient admitted to [facility] ICU for ischemic stroke s/p TNK 02/11/2024. Consults to IP CONSULT TO CASE MANAGEMENT IP CONSULT TO NEUROLOGY IP WOUND CARE NURSE CONSULT TO EVAL Initial Assessment: Spoke with patient and son Jose C at bedside. Introduced myself and role as TCC. IA complete. Patient personal information confirmed. TCC updated EC section of EHR. Jose C states that he has her insurance information and HCPOA; Jose C plans to email copies to [facility]. Patient currently from [facility]. TCC called facility to confirm services [phone] - [facility] tasked APRON MAN to send referral via careport. SW following for transportation and an AL assistance. Discharge Planning Barrier: NIH 4. 2LNC- none baseline. IVMF. PT/OT pending. Discharge Plan: [facility] Living vs Care Home. Awaiting PT/OT evals, clinical stability and medical clearance. Will continue to follow with SW. Cherise Fonseca RN Normal [facility] CBC W Auto Differential pane l (Bld)Ordered By: Jose Ramon Jack on 02-12-2024 Basophils (Bld) [#/Vol] 0.0 10*3/uL 0.0 - 0.2 10*3/uL [facility] Basophils/100 WBC (Bld) 0.3 % 0.0 - 2.0 % [facility] Eosinophils (Bld) [#/Vol] 0.0 10*3/uL 0.0 - 0.5 10*3/uL [facility] Eosinophils/100 WBC (Bld) 0.1 % 0.0 - 6.0 % [facility] Erythrocyte distribution width (RBC) [Ratio] 14.3 % 11.5 - 15.0 % [facility] Hematocrit (Bld) [Volume fraction] 31.4 % Low 35.0 - 47.0 % [facility] Hemoglobin (Bld) [Mass/Vol] 10.2 g/dL Low 11.7 - 16.0 g/dL [facility] Immature granulocytes (Bld) [#/Vol] 0.0 10*3/uL NINF - 0.1 10*3/uL [facility] Immature granulocytes/100 WBC (Bld) 0.4 % 0.0 - 2.0 % [facility] Interpretation and review of laboratory results Abnormal [facility] IPF 4 [facility] Lymphocytes (Bld) [#/Vol] 0.5 10*3/uL Low 1.0 - 4.3 10*3/uL [facility] Health Lymphocytes/100 WBC (Bld) 7.5 % Low 15.0 - 45.0 % [facility] MCH (RBC) [Entitic mass] 29.7 pg 26.0 - 34.0 pg [facility] MCHC (RBC) [Mass/Vol] 32.5 % 30.5 - 36.0 % [facility] MCV (RBC) [Entitic vol] 91.5 fL 77.0 - 99.0 fL [facility] Monocytes (Bld) [#/Vol] 0.3 10*3/uL 0.0 - 0.9 10*3/uL [facility] Monocytes/100 WBC (Bld) 4.0 % Low 5.0 - 13.0 % [facility] Neutrophils (Bld) [#/Vol] 6.4 10*3/uL 1.8 - 7.5 10*3/uL [facility] Neutrophils/100 WBC (Bld) 87.7 % High 38.0 - 82.0 % [facility] Nucleated RBC/100 WBC (Bld) [Ratio] 0.0 % [facility] Platelet mean volume (Bld) [Entitic vol] 13.1 fL High 9.0 - 12.7 fL [facility] Platelets (Bld) [#/Vol] 74 10*3/uL Low 140 - 440 10*3/uL [facility] RBC (Bld) [#/Vol] 3.43 10*6/uL Low 3.80 - 5.2 0 10*6/uL [facility] WBC (Bld) [#/Vol] 7.2 10*3/uL 3.6 - 10.7 10*3/uL [facility] CBC WITH AUTO DIFFERENTIALon 02-12-2024 Basophils (Bld) [#/Vol] 0.0 10*3/uL Normal 0.0-0.2 [facility] Comment on above: Performed By: #### L [id number] ####Event Lighting Specialist: PAO CARDOZO ([id number])[address] Basophils/100 WBC (Bld) 0.3 % Normal 0.0-2.0 S [facility] Comment on above: Performed By: #### L [id number] ####Event Lighting Specialist: PAO [id number])[facility])[address] [place] [address] Eosinophils (Bld) [#/Vol] 0.0 10*3/uL Normal 0.0-0.5 [facility] Comment on above: Performed By: #### L [id number] ####Event Lighting Specialist: PAO CARDOZO ([phone])[facility])[address] [place] [address] Eosinophils/100 WBC (Bld) 0.1 % Normal 0.0-6.0 [facility] Comment on above: Performed By: #### L [id number] ####Event Lighting Specialist: PAO CARDOZO ([id number])[address] Erythrocyte distribution width (RBC) [Ratio] 14.3 % Normal 11.5-15.0 [facility] Comment on above: Performed By: #### L [id number] ####Event Lighting Specialist: PAO CARDOZO ([phone])[facility])[address] [place] [address] Hematocrit (Bld) [Volume fraction] 31.4 % Low 35.0-47.0 [facility] Comment on above: Performed By: #### L [id number] ####Event Lighting Specialist: PAO CARDOZO ([id number])[address] Hemoglobin (Bld) [Mass/Vol] 10.2 g/dL Low 11.7-16.0 [facility] Comment on above: Performed By: #### L [id number] ####Event Lighting Specialist: PAO CARDOZO ([phone])[facility])[address] [place] [address] IMMATURE GRANS % 0.4 % Normal 0.0-2.0 [facility] Comment on above: Performed By: #### L [id number] ####Event Lighting Specialist: PAO CARDOZO ([phone])[facility])[address] [place] [address] IMMATURE GRANS ABSOLUTE 0.0 10*3/uL Normal <0.1 [facility] Comment on above: Performed By: #### L [id number] ####Event Lighting Specialist: PAO CARDOZO ([phone])[facility])[address] [place] [address] IPF 4 Normal [facility] Comment on above: Performed By: #### L [id number] ####Event Lighting Specialist: PAO CARDOZO ([id number])[facility])[address] [place] [address] Lymphocytes (Bld) [#/Vol] 0.5 10*3/uL Low 1.0-4.3 [facility] Comment on above: Performed By: #### L [id number] ####Event Lighting Specialist: PAO CARDOZO ([id number])[address] Lymphocytes/100 WBC (Bld) 7.5 % Low 15.0-45.0 [facility] Comment on above: Performed By: #### L [id number] ####Event Lighting Specialist: PAO CARDOZO ([phone])[facility])[address] [place] [address] MCH (RBC) [Entitic mass] 29.7 pg Normal 26.0-34.0 [facility] Comment on above: Performed By: #### L [id number] ####Event Lighting Specialist: PAO CARDOZO ([phone])[address] MCHC 32.5 % Normal 30.5-36.0 [facility] Comment on above: Performed By: #### L [id number] ####Event Lighting Specialist: PAO CARDOZO ([phone])[address] MCV (RBC) [Entitic vol] 91.5 fL Normal 77.0-99.0 S [facility] Comment on above: Performed By: #### L [id number] ####Event Lighting Specialist: PAO CARDOZO ([phone])[facility] ([facility])[address] [place] [address] Monocytes (Bld) [#/Vol] 0.3 10*3/uL Normal 0.0-0.9 [facility] Comment on above: Performed By: #### L [id number] ####Event Lighting Specialist: PAO CARDOZO ([id number])[facility] ([facility])[address] [place] [address] Monocytes/100 WBC (Bld) 4.0 % Low 5.0-13.0 [facility] Comment on above: Performed By: #### L [id number] ####Event Lighting Specialist: PAO CARDOZO ([phone])[facility] ([facility])[address] [place] [address] NEUTROPHILS ABSOLUTE 6.4 10*3/uL Normal 1.8-7.5 [facility] Comment on above: Performed By: #### L [id number] ####Event Lighting Specialist: PAO CARDOZO ([phone])[facility] ([facility])[address] [place] [address] Neutrophils/100 WBC (Bld) 87.7 % High 38.0-82.0 [facility] Comment on above: Performed By: #### L [id number] ####Event Lighting Specialist: PAO CARDOZO ([phone])[facility] ([facility])[address] [place] [address] NRBC 0.0 /100 WBCs Normal 0.0-2.0 [facility] Comment on above: Performed By: #### L [id number] ####Event Lighting Specialist: APO CARDOZO ([id number])[facility] ([facility])[address] [place] [address] Platelet mean volume (Bld) [Entitic vol] 13.1 fL High 9.0-12.7 [facility] Comment on above: Performed By: #### L [id number] ####Event Lighting Specialist: PAO CARDOZO ([phone])[facility] ([facility])[address] [place] [address] [place] Platelets (Bld) [#/Vol] 74 10*3/uL Low 140-440 S [facility] Comment on above: Performed By: #### L [id number] ####Event Lighting Specialist: PAO CARDOZO ([id number])[facility] ([facility])[address] [place] [address] RBC (Bld) [#/Vol] 3.43 10*6/uL Low 3.80-5.20 [facility] Comment on above: Performed By: #### L [id number] ####Event Lighting Specialist: PAO CARDOZO ([phone])[facility])[address] [place] [address] WBC (Bld) [#/Vol] 7.2 10*3/uL Normal 3.6-10.7 [facility] Comment on above: Performed By: #### L [id number] ####Event Lighting Specialist: PAO CARDOZO ([id number])[facility])[address] [place] [address] COMPREHENSIVE METABOLIC PANE Raphael 02-12-2024 Albumin [Mass/Vol] 3.3 g/dL Low 3.5-5.0 [facility] Comment on above: Performed By: #### L [id number], [id number] ####Event Lighting Specialist: PAO CARDOZO ([phone])[facility])[address] [place] [address] ALP [Catalytic activity/Vol] 57 U/L Normal 38-126 [facility] Comment on above: Performed By: #### L [id number], [id number] ####Event Lighting Specialist: PAO CARDOZO ([phone])[facility])[address] [place] [address] ALT [Catalytic activity/Vol] 18 U/L Normal 0-34 [facility] Comment on above: Performed By: #### L [id number], [id number] ####Event Lighting Specialist: PAO CARDOZO ([id number])[facility])[address] [place] [address] Anion gap [Moles/Vol] 8 mmol/L Normal 3-13 [facility] Comment on above: Performed By: #### L [id number], LAB17 ####Event Lighting Specialist: PAO CARDOZO ([id number])[facility] ([facility])[address] [place] [address] AST [Catalytic activity/Vol] 37 U/L Normal 15-46 [facility] Comment on above: Performed By: #### L [id number], LAB17 ####Event Lighting Specialist: PAO CARDOZO ([phone])[facility] ([facility])[address] [place] [address] Bilirubin [Mass/Vol] 0.6 mg/dL Normal 0.2-1.3 [facility] Comment on above: Performed By: #### L [id number], [id number] ####Event Lighting Specialist: PAO CARDOZO ([id number])[facility] ([facility])[address] [place] [address] Calcium [Mass/Vol] 8.5 mg/dL Normal 8.4-10.4 [facility] Comment on above: Performed By: #### L [id number], [id number] ####Event Lighting Specialist: PAO CARDOZO ([id number])[facility] ([facility])[address] [place] [address] [place] Chloride [Moles/Vol] 107 mmol/L Normal 98-107 [facility] Comment on above: Performed By: #### L [id number], LAB17 ####Event Lighting Specialist: PAO CARDOZO ([phone])[facility] ([facility])[address] [place] [address] [place] CO2 [Moles/Vol] 22 mmol/L Normal 22-30 [facility] Comment on above: Performed By: #### L [id number], LAB17 ####Event Lighting Specialist: PAO CARDOZO ([phone])[facility] ([facility])[address] [place] [address] [place] Creatinine [Mass/Vol] 2.02 mg/dL High 0.52-1.04 [facility] Comment on above: Performed By: #### L [id number], LAB17 ####Event Lighting Specialist: PAO CARDOZO ([id number])[facility])[address] [place] [address] GLOMERULAR FILTRATION RATE ML/MIN/1.73 SQ M.PREDICTED 24.4 mL/min/1.73m*2 Low >60.0 [facility] Comment on above: Result Comment: Calc ulation based on the Chronic Kidney Disease Epidemiology Collaboration (CKD-EPI) equation refit without adjustment for race Performed By: #### L [id number], [id number] ####Event Lighting Specialist: PAO CARDOZO ([id number])[facility] ([facility])[address] [place] [address] Glucose [Mass/Vol] 138 mg/dL High 70-100 [facility] Comment on above: Performed By: #### L [id number], LAB17 ####Event Lighting Specialist: PAO CARDOZO ([phone])[facility])[address] [place] [address] Potassium [Moles/Vol] 4.4 mmol/L Normal 3.5-5.1 [facility] Comment on above: Performed By: #### L [id number], LAB17 ####Event Lighting Specialist: PAO CARDOZO ([id number])[facility])[address] [place] [address] Protein [Mass/Vol] 6.3 g/dL Normal 6.3-8.2 [facility] Comment on above: Performed By: #### L [id number], LAB17 ####Event Lighting Specialist: PAO CARDOZO ([id number])[facility] ([facility])[address] [place] [address] [place] Sodium [Moles/Vol] 137 mmol/L Normal 135-145 [facility] Comment on above: Performed By: #### L [id number], LAB17 ####Event Lighting Specialist: PAO CARDOZO ([phone])[facility])[address] [place] [address] [place] Urea nitrogen [Mass/Vol] 53 mg/dL High 7-17 [facility] Comment on above: Performed By: #### L [id number], LAB17 ####Event Lighting Specialist: PAO CARDOZO ([phone])[facility] ([address] HEAD WO IV CONTRASTon CT HEAD WO IV CONTRAST Patient Name: LUCHO ALTAMIRANO : 1940 Exam Date/Time: 02/11/2024 23:39 Procedure: CT HEAD WO IV CONTRAST Ordering Provider: SYED MADIHAH Reason For Exam: Neuro deficit, acute, stroke suspected CT HEAD: Clinical Indication: 83-year-old female; stroke protocol; left pupil is blown; patient has received TPA at another facility a couple hours ago Imaging Technique: Multiple axial 3mm CT images of the head were obtained from the skull base to the vertex. Coronal and sagittal reconstructs were rendered. Dose reduction was employed with automated exposure control. Comparison: CT head 02/11/2024 at 15:19 (outside facility) (report not available) Time: 23:25 on 02/11/2024 FINDINGS: There is no intracranial hemorrhage. There is mild global volume loss with mild spinal vessel ischemia. There is a remote old left occipital lobe infarct with encephalomalacia changes in commensurate dilatation of the adjacent lateral ventricle occipital horn. Vascular atherosclerotic calcifications are present. The sinuses are pneumatized. The globes appear symmetric. Prior lens surgery noted. The mastoid air cells are pneumatized. IMPRESSION: There is no significant change when compared to imaging performed approximately 7 hours earlier. No acute intracranial hemorrhage. Old LEFT occipital lobe infarct. CRITICAL TEST COMMUNICATION: Dr. Syed was notified by telephone today at 11:36pm. ASPECTS: 10 Report Dictated on Electronically Signed By: Suzie Henriquez MD Electronically Signed Date/Time: 02/11/2024 11:40 PM EDT Normal [facility] Comprehensive metabolic 1998 panelon 02-12-2024 Albumin [Mass/Vol] 3.3 g/dL Low 3.5 - 5.0 g/dL [facility] ALP [Catalytic activity/Vol] 57 U/L 38 - 126 U/L [facility] ALT [Catalytic activity/Vol] 18 U/L 0 - 34 U/L [facility] Anion gap [Moles/Vol] 8 mmol/L 3 - 13 mmol/L [facility] AST [Catalytic activity/Vol] 37 U/L 15 - 46 U/L [facility] Bilirubin [Mass/Vol] 0.6 mg/dL 0.2 - 1 .3 mg/dL [facility] Calcium [Mass/Vol] 8.5 mg/dL 8.4 - 10. 4 mg/dL [facility] Chloride [Moles/Vol] 107 mmol/L 98 - 10 7 mmol/L [facility] CO2 [Moles/Vol] 22 mmol/L 22 - 30 mmol/L [facility] Creatinine [Mass/Vol] 2.02 mg/dL High 0.52 - 1.04 mg/dL [facility] GFR/1.73 sq M.predicted MDRD (S/P/Bld) [Vol rate/Area] 24.4 mL/min/{1.73_m2} Low - PINF [facility] Comment on above: Calculation based on the Chronic Kidney Disease Epidemiology Collaboration (CKD-EPI) equation refit without adjustment for race Glucose [Mass/Vol] 138 mg/dL High 70 - 100 mg/dL [facility] Interpretation and review of laboratory results Abnormal [facility] Potassium [Moles/Vol] 4.4 mmol/L 3.5 - 5.1 mmol/L [facility] Protein [Mass/Vol] 6.3 g/dL 6.3 - 8.2 g/dL [facility] Sodium [Moles/Vol] 137 mmol/L 135 - 145 mmol/L [facility] Urea nitrogen [Mass/Vol] 53 mg/dL High 7 - 17 mg/dL [facility] Consulton 02-12-2024 Consult --- Attestation signed by Charlie Syed MD at 02/12/2024 5:19 PM Neurocritical Care Attending: Attestation of Stroke Team Date of Stroke Team 02/11/24 I personally spent total critical care time [x] 34, []50 , [] 70 minutes performing a face to face diagnostic evaluation of this patient in company of my : []BERTA [] resident [] Medical student and reviewing stat labs, stat imaging studies and the electronic medical record, performing a history/physical examination of patient; as well as counseling/coordinating care, discussion urgent management, diagnostic impressions and the plan of care with the patient/emergency department. I personally attended and ran the emergent stroke team intended for urgent evaluation and treatment of acute progressive neurological changes. I have reviewed the note written as above by my: []BERTA [x] resident and agree with all documented the following additions: 83-year-old patient with hypertension, renal artery stenosis, CKD and previous ischemic stroke-[facility] of sudden onset of right hemiparesis and aphasia. Received the initial phone call from OSH ER physician-patient had been given IV tenecteplase within the window at [place] ED. patient was markedly hypertensive with a systolic blood pressure in the 200s requiring Cardene infusion before she was able to safely receive the IV tenecteplase dose. I reviewed the CTA head and neck and noncontrast CT head which was performed at OSH prior to her transfer. There was no acute LVO. Initial NIHSS of 14-patient was transported by ground ED to ED for stroke team evaluation. On arrival to our emergency room I examined the patient via telemetry robot with assistance of stroke team. NIHSS improved to 8-patient with right arm drift, expressive and receptive aphasia, and a visual field deficit. On further evaluation patient was noted to have left eye ptosis as well as a large left pupil that was 4 mm and nonreactive to light, compared to the right pupil which was 2 mm and briskly reactive to light. Although this would be concerning for intracranial compression, patient's mental status was alert and interactive and neurological exam is actually improved. She was aphasic and unable to tell us if this was a previous finding due to for example and eye surgery. Therefore we obtained a stat CT head to ensure there was no hemorrhagic transformation after tenecteplase. Stat CT head was reviewed by myself she has evidence of an old ischemic stroke with encephalomalacia in the left parietal occipital cortex. But there was no acute intracranial hemorrhage. Patient was taken to T2 ICU for continued post tenecteplase care-please see stroke order set Charlie Syed MD Neurocritical Care Attending Pager: [phone] STROKE TEAM NOTE Patient Name: Lucho Gillespie Patient : 1940 Acct: [id number] Date of Admission: 02/11/2024 Room/Bed: T2213/T2 A PCP: No primary care provider on file. Stroke team; ED Transferred from outside hospital History of Present Ilness: 83 y.o. is R handed female with the chief Complaint of: ischemic stroke, post TNK PMH unknown Patient was transferred from OSH after receiving TNK. At OSH she was noted to have expressive aphasia, and Right hemiplegia. Her NIH was 12 at OSH. She was transferred to [facility] for further workup and treatment. Of note, she was placed on a Cardene drip to support her BP when getting transferred. At arrival to the [facility] ED, vitals were significant for BP 112/46, Cardene drip discontinued. SPO2 93% on RA. NIH completed with a total of 8 for patient not knowing month, partial hemianopia of the Right, left facial palsy, right arm drift that did not hit the bed, mild to moderate loss of sensation, aphasia, and tactile extinction/inattention. On physical exam, it was noted that she had anisocoria with the left pupil at 4mm vs the right at 2mm. A repeat CT wo contrast was completed that did not show any significant changes when compared to the CT completed approximately 7 hrs prior. No acute intracranial hemorrhage was noted. Onset time: last seen well;1300 ED arrival: 2320 Stroke teamactivation 2251 NIHSS upon arrival:8 Associated symptoms: right arm weakness, loss of sensation, left facial palsy, aphasia This occurred in the setting of: PMH unknown Current use of anticoagulants: none If on anticoagulants when was last dose:NA Preadmission secondary prevention antiplatelets and statins:unknown History of AF:Unknown Contraindications for thrombolytic treatment: Yes- received thrombolytics prior to admissions at [facility] earlier today Home Medications: Prior to Admission medications Not on File Current Hospital Medications: Current Facility-A (more content not included)... [facility] ECG 12-LEADon 02-12-2024 ECG 12-LEAD IMPRESSION: Sinus rhythm Short MN interval LVH with secondary repolarization abnormality Borderline prolonged QT interval no stemi no prior to compare Electronically Signed On 02-12-2024 11:14:10 EDT by Robby Figueredo [facility] ED Provider Noteon ED Provider Note Emergency Department Encounter [facility] EMERGENCY DEPT Patient: Lucho Gillespie : 1940 Date of Evaluation: 02/11/2024 ED Supervising Physician: Barrington Otero MD I personally saw Lucho Gillespie and made/approved the management plan and take responsibility for the patient management. This will serve as my Supervisory note and shared attestation. I did perform a substantive portion of the visit including all aspects of the Medical Decision Making. HPI: In brief, Lucho Gillespie is a 83 y.o. female presents from outside hospital with concern for stroke. Per report, patient today presented to outside [facility] with concern for aphasia, was treated with TNK, transferred for further neurologic evaluation including admission. Physical Exam: General: no apparent distress, nontoxic-appearing Eyes: Left pupil 4 mm, right pupil 2 mm HEENT: airway patent, mucous membranes moist Cardiovascular: regular rhythm, normal rate Respiratory: non-labored breathing, breath sounds clear, no wheezing crackles or rhonchi Extremities: no obvious deformity, non edematous Neurologic: 1A. Level of consciousness (0-3) = 0 1B. LOC Questions (0-2) = 1 1C. LOC Commands (0-2) = 0 2. Horizontal gaze (0-2) = 0 3. Visual rashid (0-3) = 1 4. Facial palsy (0-3) = 1 5. Motor arm Right (0-4) = 1 Left (0-4) = 0 6. Motor leg Right (0-4) = 0 Left (0-4) = 0 7. Limb ataxia (0-2) = 1 8. Sensory (0-2) = 1 9. Best Language = (0-3) = 1 10. Dysarthria (0-2) = 0 11. Extinction and inattention (0-2) = 1 Total NIHSS = 8 Brief ED course/MDM: An 83-year-old female, presents as above, transfer from outside hospital having received thrombolytics for an ischemic stroke, accepted by the stroke neurology service, on arrival her neurologic exam as above, stroke neurology service present at bedside including attending Dr. Syed via telemedicine, recommend that patient be taken for CT head en route to neuro/ICU admission. CT head per radiologist interpretation, no ICH, old left occipital lobe infarct All diagnostic, treatment, and disposition decisions were made by myself in conjunction with the resident. I also supervised mayen portions of any procedures performed by the Resident. For all further details of the patient's emergency department visit, please see their documentation. (Comment: Please note this report has been produced using speech recognition software and may contain errors related to that system including errors in grammar, punctuation, and spelling, as well as words and phrases that may be inappropriate. If there are any questions or concerns please feel free to contact the dictating provider for clarification.) Barrington Otero MD Acute Care [facility] Barrington Otero MD 02/12/24 0721 Normal [facility] HEMOGLOBIN A1Con 02-12-2024 Glucose [Mass/Vol] 137 mg/dL Normal [facility] Comment on above: Performed By: #### L AB90 ####Event Lighting Specialist: PAO CARDOZO ([phone])[facility] ([id number] HbA1c (Bld) [Mass fraction] 6.4 % High <5.7 [facility] Comment on above: Result Comment: Norm al less than 5.7% Prediabetes 5.7% to 6.4% Diabetes 6.5% or higher --HgbA1C levels may not be accurate in patients who have renal disease, received recent blood transfusions, are anemic, or who have dyshemoglobinemia. Performed By: #### L AB90 ####Event Lighting Specialist: PAO CARDOZO ([phone])[facility])[address] [place] [address] HEPATIC FUNCTION PANELon Albumin [Mass/Vol] 3.5 g/dL Normal 3.5-5.0 [facility] Comment on above: Performed By: #### L AB103, [id number], LAB15, LAB18, LAB20, [id number] ####Event Lighting Specialist: PAO CARDOZO ([phone])[facility])[address] [place] [address] ALP [Catalytic activity/Vol] 64 U/L Normal 38-126 [facility] Comment on above: Performed By: #### L AB103, [id number], LAB15, LAB18, LAB20, [id number] ####Event Lighting Specialist: PAO CARDOZO ([phone])[facility])[address] [place] [address] ALT [Catalytic activity/Vol] 19 U/L Normal 0-34 [facility] Comment on above: Performed By: #### L AB103, [id number], LAB15, LAB18, LAB20, [id number] ####Event Lighting Specialist: PAO CARDOZO ([phone])[facility])[address] [place] [address] AST [Catalytic activity/Vol] 27 U/L Normal 15-46 [facility] Comment on above: Performed By: #### L AB103, [id number], LAB15, LAB18, LAB20, [id number] ####Event Lighting Specialist: PAO CARDOZO ([phone])[facility])[address] [place] [address] Bilirubin [Mass/Vol] 0.6 mg/dL Normal 0.2-1.3 [facility] Comment on above: Performed By: #### L AB103, [id number], LAB15, LAB18, LAB20, [id number] ####Event Lighting Specialist: PAO CARDOZO ([phone])[facility])[address] [place] [address] Bilirubin.indirect [Mass/Vol] 0.0 mg/dL Normal 0.0-0.3 [facility] Comment on above: Performed By: #### L AB103, [id number], LAB15, LAB18, LAB20, [id number] ####Event Lighting Specialist: PAO CARDOZO ([phone])[facility] ([facility])[address] [place] [address] Protein [Mass/Vol] 6.7 g/dL Normal 6.3-8.2 [facility] Comment on above: Performed By: #### L AB103, [id number], LAB15, LAB18, LAB20, [id number] ####Event Lighting Specialist: PAO CARDOZO ([phone])[facility])[address] [place] [address] Hepatic function 2000 panelo n 02-12-2024 Albumin [Mass/Vol] 3.5 g/dL 3.5 - 5.0 g/dL [facility] ALP [Catalytic activity/Vol] 64 U/L 38 - 126 U/L [facility] ALT [Catalytic activity/Vol] 19 U/L 0 - 34 U/L [facility] AST [Catalytic activity/Vol] 27 U/L 15 - 46 U/L [facility] Bilirubin [Mass/Vol] 0.6 mg/dL 0.2 - 1 .3 mg/dL [facility] Bilirubin.conjugated [Mass/Vol] 0.0 mg/dL 0.0 - 0.3 mg/dL [facility] Protein [Mass/Vol] 6.7 g/dL 6.3 - 8.2 g/dL [facility] LIPID PANELon 02-12-2024 Cholesterol [Mass/Vol] 158 mg/dL Normal <200 [facility] Comment on above: Performed By: #### L AB103, [id number], LAB15, LAB18, LAB20, [id number] ####Event Lighting Specialist: PAO CARDOZO ([phone])[facility])[address] [place] [address] Cholesterol in HDL [Mass/Vol] 31 mg/dL Low 40-60 [facility] Comment on above: Performed By: #### L AB103, [id number], LAB15, LAB18, LAB20, [id number] ####Event Lighting Specialist: PAO CARDOZO ([phone])[facility])[address] [place] [address] Cholesterol.total/Jyothi sterol in HDL [Mass ratio] 5 {ratio} Normal [facility] Comment on above: Result Comment: Ref Range: < 3 Low Risk for CHD 3-6 Mod Risk for CHD > 6 High Risk for CHD Performed By: #### L AB103, [id number], LAB15, LAB18, LAB20, [id number] ####Event Lighting Specialist: PAO CARDOZO ([phone])[facility] ([facility])[address] [place] [address] LOW DENSITY LIPOPROTEIN 102 mg/dL High 0-<100 [facility] Comment on above: Performed By: #### L AB103, TOD201, LAB15, LAB18, LAB20, [id number] ####Event Lighting Specialist: PAO CARDOZO ([phone])[facility] ([facility])[address] [place] [address] Triglyceride [Mass/Vol] 123 mg/dL Normal <150 [facility] Comment on above: Performed By: #### L AB103, [id number], LAB15, LAB18, LAB20, [id number] ####Event Lighting Specialist: PAO CARDOZO ([phone])[facility] ([facility])[address] [place] [address] Laboratory - Chemistry and C hemistry - challengeon 02-12-2024 Troponin I.cardiac [Mass/Vol] 0.318 ng/mL Critically high [facility] ng/mL [facility] Troponin I.cardiac [Mass/Vol] 0.245 ng/mL Critically high NINF - 0.034 ng/mL [facility] Average glucose Estimated from glycated hemoglobin (Bld) [Mass/Vol] 137 mg/dL [facility] Magnesium [Mass/Vol] 1.7 mg/dL 1.6 - 2 .3 mg/dL [facility] Laboratory - Chemistry and C hemistry - challengeOrdered By: Devon Healy on 02-12-2024 Troponin I.cardiac [Mass/Vol] 0.341 ng/mL Critically high NINF - 0.034 ng/mL [facility] Laboratory - Chemistry and C hemistry - challengeOrdered By: Nate Brink on 02-12-2024 Troponin I.cardiac [Mass/Vol] 0.127 ng/mL Critically high NINF - 0.034 ng/mL [facility] Laboratory - Hematology and Cell countson 02-12-2024 HbA1c (Bld) [Mass fraction] 6.4 % High [facility] - 5.7 % [facility] Comment on above: Normal less than 5.7 % Prediabetes 5.7% to 6.4% Diabetes 6.5% or higher --HgbA1C levels may not be accurate in patients who have renal disease, received recent blood transfusions, are anemic, or who have dyshemoglobinemia. Lipid 1996 panelon Cholesterol [Mass/Vol] 158 mg/dL NINF - 200 mg/dL [facility] Cholesterol in HDL [Mass/Vol] 31 mg/dL Low 40 - 60 mg/dL [facility] Cholesterol in LDL [Mass/Vol] 102 mg/dL High 0 - <100 [facility] Cholesterol.total/Jyothi sterol in HDL [Mass ratio] 5 {ratio} [facility] Comment on above: Ref Range: < 3 Low Risk for CHD 3-6 Mod Risk for CHD > 6 High Risk for CHD Triglyceride [Mass/Vol] 123 mg/dL NINF - 150 mg/dL [facility] MAGNESIUMon 02-12-2024 Magnesium [Mass/Vol] 1.7 mg/dL Normal 1.6-2.3 [facility] Comment on above: Performed By: #### L AB103, [id number], LAB15, LAB18, LAB20, [id number] ####Event Lighting Specialist: PAO CARDOZO ([id number])[facility] ([address] MR Brain WO contraston 02-11 1. No acute intracranial abnormalities. 2. Remote left CHIEF JAILER territory infarct and small remote lacunar infarcts in the cerebellum and left frontal lobe. Report Dictated on Electronically Signed By: River Irizarry MD Electronically Signed Date/Time: 02/12/2024 6:46 PM EDT [facility] Patient Name: LUCHO OLIVARES : 1940 Exam Date/Time: 02/12/2024 16:28 Procedure: MR BRAIN WO CONTRAST Ordering Provider: ROSENBERG MICHAEL Reason For Exam: Stroke, follow up MRI BRAIN WITHOUT CONTRAST INDICATIONS: Stroke, follow up COMPARISON: None TECHNIQUE: Multiplanar, multisequence MRI of the brain was performed without contrast. FINDINGS: Acute Change: No evidence of acute infarction. No fluid collection or intracranial hemorrhage. Mass Lesion: None. Parenchyma: Encephalomalacia and gliosis in the left occipital lobe from a remote CHIEF JAILER territory infarct. Small remote lacunar infarcts in the cerebellar white matter bilaterally and left frontal subcortical white matter. Ventricles and sulci: Moderate generalized brain parenchymal volume loss with mild proportionate ventricular enlargement. Superimposed ex vacuo enlargement of the atrium of the left lateral ventricle. Skull base: Normal appearance of the pituitary gland. Normal position of the cerebellar tonsils. Vessels: The major intracranial flow voids are preserved. Extracranial structures: Bilateral lens replacements; otherwise, the orbits are unremarkable. No extracranial soft tissue abnormalities. Sinuses/mastoids: Clear Bones: No pathologic marrow infiltration. [facility] River Irizarry M D - 02/12/2024 Patient Name: LUCHO GILLESPIE : 1940 Exam Date/Time: 02/12/2024 16:28 Procedure: MR BRAIN WO CONTRAST Ordering Provider: ROSENBERG MICHAEL Reason For Exam: Stroke, follow up MRI BRAIN WITHOUT CONTRAST INDICATIONS: Stroke, follow up COMPARISON: None TECHNIQUE: Multiplanar, multisequence MRI of the brain was performed without contrast. FINDINGS: Acute Change: No evidence of acute infarction. No fluid collection or intracranial hemorrhage. Mass Lesion: None. Parenchyma: Encephalomalacia and gliosis in the left occipital lobe from a remote CHIEF JAILER territory infarct. Small remote lacunar infarcts in the cerebellar white matter bilaterally and left frontal subcortical white matter. Ventricles and sulci: Moderate generalized brain parenchymal volume loss with mild proportionate ventricular enlargement. Superimposed ex vacuo enlargement of the atrium of the left lateral ventricle. Skull base: Normal appearance of the pituitary gland. Normal position of the cerebellar tonsils. Vessels: The major intracranial flow voids are preserved. Extracranial structures: Bilateral lens replacements; otherwise, the orbits are unremarkable. No extracranial soft tissue abnormalities. Sinuses/mastoids: Clear Bones: No pathologic marrow infiltration. IMPRESSION: 1. No acute intracranial abnormalities. 2. Remote left CHIEF JAILER territory infarct and small remote lacunar infarcts in the cerebellum and left frontal lobe. Report Dictated on Electronically Signed By: River Irizarry MD Electronically Signed Date/Time: 02/12/2024 6:46 PM EDT [facility] Rad[facility] Study observation (narrative) [facility] Pillo alth MR Brain WO contrastOrdered By: River Irizarry on 02-12-2024 [employer] Work Phone: No Panel Informationon 02-11 No evidence of deep vein or superficial vein thrombosis in the left upper extremity. Vessels demonstrate normal compressibility, color filling, and phasic and spontaneous flow. Contralateral imaging of the right subclavian vein was normal. Right Upper Venous For comparison purposes, the right subclavian vein was investigated. This vein appeared to show normal color filling and Doppler interrogation showed phasic, spontaneous, and somewhat pulsatile flow. Left Upper Venous No evidence of deep vein or superficial vein thrombosis. The internal jugular, subclavian, axillary, brachial, radial, ulnar, basilic, and cephalic veins were imaged in the transverse view and showed normal compressibility. The internal jugular, innominate, subclavian, and axillary veins were imaged in the longitudinal view and showed normal color filling and normal phasic and spontaneous flow. Associate Accountant Details A obregon scale, color Doppler imaging and spectral Doppler analysis ultrasound was performed. During the study longitudinal and transverse views were obtained. Pulsed wave doppler was performed. The exam was performed with the patient in the supine position. Overall the study quality was adequate. Study was technically difficult due to: bedside exam. CV CPACS Sinus rhythm Short MN interval LVH with secondary repolarization abnormality Borderline prolonged QT interval no stemi no prior to compare Electronically Signed On 02-12-2024 11:14:10 EDT by Robby Alvarenga MD - 02/12/2024 IMPRESSION: Sinus rhythm Short MN interval LVH with secondary repolarization abnormality Borderline prolonged QT interval no stemi no prior to compare Electronically Signed On 02-12-2024 11:14:10 EDT by Robby Figueredo [facility] Interpretation and review of laboratory results Abnormal [facility] [place] Interpretation and review of laboratory results Abnormal [facility] Interpretation and review of laboratory results Normal [facility] [email or web address] [facility] No Panel InformationOrdered By: Robby Figueredo on 02-12-2024 P [place] 0 degrees [employer] Work Phone: MN Interval 70 ms [facility] Work Phone: QRS [place] 1 degrees [employer] Work Phone: QRSD Interval 99 ms [facility] Work Phone: QT Interval 432 ms [facility] Work Phone: QTC Interval 493 ms [facility] Work Phone: T Wave [place] 35 degrees [employer] Work Phone: [facility] Work Phone: PHOSPHORUSon 02-12-2024 Phosphate [Mass/Vol] 3.6 mg/dL Normal 2.5-4.5 [facility] Comment on above: Performed By: #### L AB103, [id number], LAB15, LAB18, LAB20, [id number] ####Event Lighting Specialist: PAO CARDOZO ([phone])[address] Phosphate [Moles/Vol]on Phosphate [Mass/Vol] 3.6 mg/dL 2.5 - 4 .5 mg/dL [facility] Progress Noteon 02-12-2024 Progress Note Nutrition Assessment Type and Reason for Visit: Initial Nutrition Recommendations/Plan: Continue with Regular diet. Sign off to dietitian teacher Monitor nutritional status. Nutrition Assessment: Pt is an [id number]-female who was transferred from OSH after receiving TNK. At OSH she was noted to have expressive aphasia, and Right hemiplegia. Her NIH was 12 at OSH. She was transferred to [facility] for further workup and treatment. Of note, she was placed on a Cardene drip to support her BP when getting transferred. NIH completed with a total of 8 for patient not knowing month, partial hemianopia of the Right, left facial palsy, right arm drift that did not hit the bed, mild to moderate loss of sensation, aphasia, and tactile extinction/inattention. On physical exam, it was noted that she had anisocoria with the left pupil at 4mm vs the right at 2mm. A repeat CT wo contrast was completed that did not show anysignificant changes when compared to the CT completed approximately 7 hrs prior. No acute intracranial hemorrhage was noted. 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 Regular diet approved. Current Nutrition Therapies: Adult diet Regular Smiley Phillip RD,LD,CNSC Contact: *[phone] or Epic Chat Normal [facility] Progress Note PHYSICAL THERAPY [facility] Name/MRN: Lucho Gillespie ([id number]) Date: 02/12/2024 PT orders received. Pt with active strict bedrest orders. Will attempt eval with updated activity orders. Lo Redyd, PT Normal [facility] Progress Note Speech-Language Pathology SPEECH LANGUAGE PATHOLOGY [facility] Speech Language Evaluation Patient Name: Lucho Gillespie Evaluation Date: 02/12/2024 Date of : 1940 Admission Date: 02/11/2024 11:08 PM Age: 83 y.o. Room/Bed: T2-213/T2-213 A Subjective Patient alert and cooperative. Seen laying in bed. No visitors at bedside. Spoke with TRUONG Segal who cleared pt to be evaluated. Past Medical History: No past medical history on file. Past Surgical History: No past surgical history on file. Admission Diagnosis: Patient Active Problem List Diagnosis Date Noted Ischemic stroke (HCC) 02/11/2024 CT/MRI Results: CT head wo IV contrast 02/11/2024 Impression There is no significant change when compared to imaging performed approximately 7 hours earlier. No acute intracranial hemorrhage. Old LEFT occipital lobe infarct. CRITICAL TEST COMMUNICATION: Dr. Syed was notified by telephone today at 11:36pm. ASPECTS: 10 Report Dictated on Electronically Signed By: Suzie Henriquez MD Electronically Signed Date/Time: 02/11/2024 11:40 PM EDT History of Present Illness: Patient was transferred from OSH after receiving TNK. At OSH she was noted to have expressive aphasia, and Right hemiplegia. Her NIH was 12 at OSH. She was transferred to [facility] for further workup and treatment. Of note, she was placed on a Cardene drip to support her BP when getting transferred. At arrival to the [facility] ED, vitals were significant for BP 112/46, Cardene drip discontinued. SPO2 93% on RA. NIH completed with a total of 8 for patient not knowing month, partial hemianopia of the Right, left facial palsy, right arm drift that did not hit the bed, mild to moderate loss of sensation, aphasia, and tactile extinction/inattention. On physical exam, it was noted that she had anisocoria with the left pupil at 4mm vs the right at 2mm. A repeat CT wo contrast was completed that did not show any significant changes when compared to the CT completed approximately 7 hrs prior. No acute intracranial hemorrhage was noted. Ischemic stroke: partial hemianopia of the Right, left facial palsy, right arm drift, loss of sensation, aphasia, and tactile extinction/inattention. Status post TNK. Debility Patient Complaint: Patient voices no complaints at bedside. ST eval for language secondary to ischemic stroke. Pain: RN managing pain. PPE Worn: surgical mask, gloves Objective Orientation: oriented to person, place, time, and general circumstances Oral Motor Mechanism: Adequate structure, strength, and ROM in lingual, labial, and buccal musculature. Auditory Comprehension: Object Identification: 100% Body Parts: 100% Following 1-step commands: 100% Following 2-step commands: 100% Following 3-step commands: completed 2 of the steps, asked for repetition of the last step. Answering Yes/No Questions: Simple: 100% Abstract: 100% Summary: Pt presents within normal limits in auditory comprehension. Verbal Expression: Automatic Speech Tasks: Counting 1 - 10: 100% Days of Week: 100% Confrontation Namin% Function of Object: 100% Responsive Namin% Divergent Namin% could not state 5 occupations. Verbal Explanation: 70% needed minimal cueing to expand and sequence steps. Summary: Pt presents with mild impairment in verbal expression. Basic Cognition: Attention: adequate Verbal Problem Solving: adequate Assessment/Plan IMPRESSION: Patient presents WFL concerning receptive language skills and demonstrates mild impairments with expressive language skills. Patient demonstrates the most difficulty when asked to sequence steps or produce longer verbal explanations. Pt would benefit from skilled acute PELLETISING EXTRUDER OPERATOR services to address expressive language. Frequency: 3 days/wk for 2 weeks Barriers: Medical complications Prognosis: good D/C Recommendations: to be determined Education Given: communication Given To: patient and RN Response: verbalizes understanding Goals Patient Stated Goal: To rest. Encounter Problems Encounter Problems (Active) PELLETISING EXTRUDER OPERATOR Misc Verbal Explanation Start: 02/12/24 Expected End: 02/26/24 Sequencing Start: 02/12/24 Expected End: 02/26/24 Therapy Time PELLETISING EXTRUDER OPERATOR Individual Minutes Time In: 1050 Time Out: 1110 Minutes: 20 Carol Brian Normal [facility] Progress Note Wound Care consulted for Pressure Injury Prevention. Pt's Nayan score= 15 on 02/11 Pt's pressure points assessed. Pt's Heels, Buttocks/coccyx, Back, Elbows, Occiput and ears all intact. Prevention Measures in place, including: Bristol sheet with pillows/wedges, Foam heel protectors, Heels elevated off bed on pillows, Sacral foam, Moisture Barrier ointment, Waffle chair cushion (obtained for pt). Skin Care precaution order set in place. Information Systems Security Manager consult N/A, subscore=3. PT consult order in place. D/W nursing staff. Will continue to follow pt. Please Voicera for any questions or concerns. Amanda Elder RN, CWCN Normal [facility] Progress Note Speech-Language Pathology Patient passed the Nursing Swallowing Screening and is on a Regular diet, Cardiac: Low fat, Low cholesterol. High Fiber, ASHLEY with Thin liquids. Completed speech orders as per stroke protocol. Normal [facility] TROPONIN Ion 02-12-2024 Troponin I.cardiac [Mass/Vol] 0.341 ng/mL Critically high <0.034 [facility] Comment on above: Result Comment: SHANNAN Neumann COMMENTS: Patients with high levels of Biotin oral intake (ie >5 mg/day) may have falsely decreased Troponin levels. Performed By: #### L [id number] ####Event Lighting Specialist: PAO CARDOZO ([phone])[facility] ([address] Troponin I.cardiac [Mass/Vol] 0.245 ng/mL Critically high <0.034 [facility] Comment on above: Result Comment: SHANNAN Neumann COMMENTS: Patients with high levels of Biotin oral intake (ie >5 mg/day) may have falsely decreased Troponin levels. Performed By: #### L AB747 ####Event Lighting Specialist: PAO CARDOZO ([phone])[facility] ([facility] [place] [address] TROPONIN, WITH SERIAL REFLEX on 02-12-2024 Troponin I.cardiac [Mass/Vol] 0.318 ng/mL Critically high <0.034 [facility] Comment on above: Result Comment: SHANNAN Neumann COMMENTS: Patients with high levels of Biotin oral intake (ie >5 mg/day) may have falsely decreased Troponin levels. Performed By: #### L [id number], LAB17 ####Event Lighting Specialist: PAO CARDOZO ([id number])[facility] ([facility] [place] [address] Troponin I.cardiac [Mass/Vol] 0.127 ng/mL Critically high <0.034 [facility] Comment on above: Result Comment: SHANNAN Neumann COMMENTS: Patients with high levels of Biotin oral intake (ie >5 mg/day) may have falsely decreased Troponin levels. Performed By: #### L AB103, OCB531, LAB15, LAB18, LAB20, [id number] ####Event Lighting Specialist: PAO CARDOZO ([id number])[facility] ([facility] [place] [address] [place] Troponin I.cardiac [Mass/Vol ]on 02-12-2024 Interpretation and review of laboratory results Abnormal [facility] Patients with high levels of Biotin oral intake (ie >5 mg/day) may have falsely decreased Troponin levels. [facility] Interpretation and review of laboratory results Abnormal [facility] Patients with high levels of Biotin oral intake (ie >5 mg/day) may have falsely decreased Troponin levels. [facility] Troponin I.cardiac [Mass/Vol ]Ordered By: Devon Healy on 02-12-2024 Interpretation and review of laboratory results Abnormal [facility] Patients with high levels of Biotin oral intake (ie >5 mg/day) may have falsely decreased Troponin levels. [facility] Troponin I.cardiac [Mass/Vol ]Ordered By: Nate Brink on 02-12-2024 Interpretation and review of laboratory results Abnormal [facility] Patients with high levels of Biotin oral intake (ie >5 mg/day) may have falsely decreased Troponin levels. [facility] [employer] [facility] [employer] US Heart TransthoracicOrdere d By: Sixto Ma on 02-12-2024 Aortic Root 3.5 cm [facility] Work Phone: Ascending Aorta 3.5 cm [facility] Work Phone: [phone] AV Area by Peak Velocity 2.7 cm2 [facility] Work Phone: [phone] AV Area by VTI 2.6 cm2 [facility] Work Phone: [phone] AV AT 125.59 ms [facility] Work Phone: [phone] AV Mean Gradient 5 mmHg [facility] Work Phone: [phone] AV Mean Velocity 1.1 m/s [facility] Work Phone: [phone] AV Peak Gradient 9 mmHg [facility] Work Phone: [phone] AV Peak Velocity 1.5 m/s [facility] Work Phone: [phone] AV Velocity Ratio 0.67 [facility] Work Phone: AV VTI 40.5 cm [facility] [employer] Work Phone: [phone] E/E' Lateral 26.50 [facility] [employer] Work Phone: E/E' Ratio (Averaged) 26.50 [facility] Work Phone: E/E' Septal 26.50 [facility] [employer] Work Phone: EF BP 77 % 55 - 100 % [facility] [employer] Work Phone: [phone] Fractional Shortening 2D 42 % 28 - 44 % [facility] [employer] Work Phone: [phone] Interpretation and review of laboratory results Abnormal [facility] [employer] Work Phone: IVC Diameter 1.6 cm [facility] [employer] Work Phone: IVSd 1.3 cm Abnormal 0.6 - 0.9 cm [facility] [employer] Work Phone: [phone] LA Diameter 4.6 cm [facility] [employer] Work Phone: LA Volume 4C 98 mL Abnormal 22 - 52 mL [facility] [employer] Work Phone: LA/AO Root Ratio 1.31 [facility] Work Phone: LV E' Lateral Velocity 4 cm/s [facility] Work Phone: LV E' Septal Velocity 4 cm/s [facility] Work Phone: LV EDV A2C 142 mL [facility] [employer] Work Phone: LV EDV A4C 125 mL [facility] [employer] Work Phone: LV EDV BP 139 mL Abnormal 56 - 104 mL [facility] [employer] Work Phone: LV Ejection Fraction A2C 78 % [facility] [employer] Work Phone: LV Ejection Fraction A4C 72 % [facility] [employer] Work Phone: LV ESV A2C 31 mL [facility] [employer] Work Phone: LV ESV A4C 34 mL [facility] [employer] Work Phone: LV ESV BP 32 mL 19 - 49 mL [facility] [employer] Work Phone: LV Mass 2D 305.5 g Abnormal 67 - 162 g [facility] [employer] Work Phone: LV RWT Ratio 0.37 [facility] [employer] Work Phone: LVIDd 5.9 cm Abnormal 3.9 - 5.3 cm [facility] [employer] Work Phone: LVIDs 3.4 cm [facility] [employer] Work Phone: LVOT Area 4.2 cm2 [facility] [employer] Work Phone: LVOT Cardiac Output 7.8 liter/mi nut e [facility] [employer] Work Phone: LVOT Diameter 2.3 cm [facility] Work Phone: LVOT Mean Gradient 2 mmHg [facility] [employer] Work Phone: LVOT Peak Gradient 4 mmHg [facility] [employer] Work Phone: LVOT Peak Velocity 1.0 m/s [facility] [employer] Work Phone: LVOT SV 106.3 ml [facility] Work Phone: [phone] LVOT VTI 25.6 cm [facility] Work Phone: [phone] LVOT:AV VTI Index 0.63 [facility] Work Phone: [phone] LVPWd 1.1 cm Abnormal 0.6 - 0.9 cm [facility] Work Phone: [phone] A Velocity 1.62 m/s [facility] Work Phone: [phone] E Velocity 1.06 m/s [facility] Work Phone: [phone] MV E Wave Deceleration Time 235.4 ms [facility] [employer] Work Phone: [phone] MV E/A 0.65 [facility] [employer] Work Phone: [phone] RA Area 4C 45.8 mL [facility] Work Phone: [phone] RA Area 4C 44.5 mL [facility] [employer] Work Phone: [phone] RV Basal Dimension 4.3 cm [facility] [employer] Work Phone: [phone] RV Free Wall Peak S' 18 cm/s [facility] Work Phone: [phone] RV Longitudinal Dimension 7.3 cm [facility] [employer] Work Phone: [phone] RV Mid Dimension 2.5 cm [facility] Work Phone: [phone] TAPSE 2.7 cm 1.7 cm [facility] Work Phone: [phone] [facility] [employer] Work Phone: [phone] Heart Transthoracicon Left Ventricle: Left ventricle size is normal. Mildly increased wall thickness. Moderate septal thickening. Normal left ventricular systolic function. EF by 2D Simpsons Biplane is 77%. Normal wall motion. No thrombus or other source of embolic event is identified. Interatrial Septum: No interatrial shunt visualized on color Doppler. Right Ventricle: Right ventricle is mildly dilated. Normal systolic function. Aortic Valve: Trileaflet. No cusp thickening. Mildly calcified cusps. Mild annular calcification. Trace regurgitation. No stenosis. Left Atrium: Left atrium is mildly dilated. Aorta: Normal sized sinuses of Valsalva. Mildly dilated ascending aorta. Ao ascending diameter is 3.5 cm. Left Ventricle Left ventricle size is normal. Mildly increased wall thickness. Moderate septal thickening. Normal left ventricular systolic function. EF by 2D Simpsons Biplane is 77%. Normal wall motion. Right Ventricle Right ventricle is mildly dilated. Normal systolic function. Left Atrium Left atrium is mildly dilated. Right Atrium Right atrium size is normal. IVC/SVC IVC diameter is normal and decreases greater than 50% during inspiration; therefore the estimated right atrial pressure is normal (~3 mmHg). Mitral Valve Moderate annular calcification (posterior). No regurgitation. No stenosis noted. Tricuspid Valve Valve structure is normal. No regurgitation. Unable to assess RVSP due to insignificant tricuspid regurgitation. Aortic Valve Trileaflet. No cusp thickening. Mildly calcified cusps. Mild annular calcification. Trace regurgitation. No stenosis. Pulmonic Valve Valve structure is normal. Trace regurgitation. Ascending Aorta Normal sized sinuses of Valsalva. Mildly dilated ascending aorta. Ao ascending diameter is 3.5 cm. Pericardium Evidence of prominent epicardial fat. No pericardial effusion. Septum No interatrial shunt visualized on color Doppler. Pulmonary Artery Pulmonary artery was not well visualized. Study Details Image quality: adequate. Heart rate: 72 bpm. Blood pressure: 181/53 mmHg. The underlying ECG rhythm was sinus rhythm. Ultrasound enhancement agent was given to enhance imaging. Echo Additional Conclusions No thrombus or other source of embolic event is identified. Wall Scoring Baseline Score Index: 1.00 The left ventricular wall motion is normal. CV CPACS Vital signsOrdered By: Tommy Figueredo on 02-12-2024 Heart rate 78 /min bpm [facility]: XR ABDOMEN 1 VIEWon 02-12-20 24 XR ABDOMEN 1 VIEW Patient Name: [facility]AR[facility] 1940 [id number] Exam Date/Time: 02/12/2024 11:00 Procedure: XR ABDOMEN 1 VIEW Ordering Provider: ROSENBERG MICHAEL Reason For Exam: MRI clearance ABDOMEN: CLINICAL INDICATION: MRI clearance. TECHNIQUE: Supine AP view of abdomen and pelvis. COMPARISON: None. FINDINGS: Eventration of right hemidiaphragm. The bowel gas pattern is unremarkable. There are scattered calculi in the distribution of the right and left kidney. Splenic artery and/or spleen calcifications are seen.. There is no organomegaly. Lumbar degenerative spondylosis. Urinary bladder is opacified with contrast. No radiopaque foreign body. IMPRESSION: No acute abdominal process. No radiopaque foreign body. Suspect tiny bilateral renal calculi Report Dictated on Electronically Signed By: Rico Hines DO Electronically Signed Date/Time: 02/12/2024 11:22 AM EDT [facility] XR Abdomen Single viewon No acute abdominal process. No radiopaque foreign body. Suspect tiny bilateral renal calculi Report Dictated on Electronically Signed By: Rico Hines DO Electronically Signed Date/Time: 02/12/2024 11:22 AM EDT [facility] Patient Name: LUCHO OLIVARES : 1940 Exam Date/Time: 02/12/2024 11:00 Procedure: XR ABDOMEN 1 VIEW Ordering Provider: ROSENBERG MICHAEL Reason For Exam: MRI clearance ABDOMEN: CLINICAL INDICATION: MRI clearance. TECHNIQUE: Supine AP view of abdomen and pelvis. COMPARISON: None. FINDINGS: Eventration of right hemidiaphragm. The bowel gas pattern is unremarkable. There are scattered calculi in the distribution of the right and left kidney. Splenic artery and/or spleen calcifications are seen.. There is no organomegaly. Lumbar degenerative spondylosis. Urinary bladder is opacified with contrast. No radiopaque foreign body. [facility] Rico Hines DO - 02/12/2024 Patient Name: LUCHO GILLESPIE : 1940 Exam Date/Time: 02/12/2024 11:00 Procedure: XR ABDOMEN 1 VIEW Ordering Provider: ROSENBERG MICHAEL Reason For Exam: MRI clearance ABDOMEN: CLINICAL INDICATION: MRI clearance. TECHNIQUE: Supine AP view of abdomen and pelvis. COMPARISON: None. FINDINGS: Eventration of right hemidiaphragm. The bowel gas pattern is unremarkable. There are scattered calculi in the distribution of the right and left kidney. Splenic artery and/or spleen calcifications are seen.. There is no organomegaly. Lumbar degenerative spondylosis. Urinary bladder is opacified with contrast. No radiopaque foreign body. IMPRESSION: No acute abdominal process. No radiopaque foreign body. Suspect tiny bilateral renal calculi Report Dictated on Electronically Signed By: Rico Hines DO Electronically Signed Date/Time: 02/12/2024 11:22 AM EDT [facility] Radiology Study observation (narrative) [facility] XR CHEST 1 VIEWon 02-12-2024 XR CHEST 1 VIEW Patient Name: LUCHO OLIVARES : 1940 Exam Date/Time: 02/12/2024 11:00 Procedure: XR CHEST 1 VIEW Ordering Provider: ROSENBERG MICHAEL Reason For Exam: MRI clearance PORTABLE CHEST CLINICAL INDICATION: MRI clearance. COMPARISON: None. TECHNIQUE: A single frontal view of thorax was obtained and reviewed. IMPRESSION: 1. Lines/ tubes/ devices: None. 2. Lungs and Pleura: No infiltrate or mass. No pneumothorax or pleural effusion. 3. Heart and mediastinum: Mild cardiomegaly. 4. Bones: Thoracic degenerative spondylosis. No radiopaque foreign body. Report Dictated on Electronically Signed By: Rico Hines DO Electronically Signed Date/Time: 02/12/2024 11:19 AM EDT [facility] XR Chest Single viewon 02-11 1. Lines/ tubes/ devices: None. 2. Lungs and Pleura: No infiltrate or mass. No pneumothorax or pleural effusion. 3. Heart and mediastinum: Mild cardiomegaly. 4. Bones: Thoracic degenerative spondylosis. No radiopaque foreign body. Report Dictated on Electronically Signed By: Rico Hines DO Electronically Signed Date/Time: 02/12/2024 11:19 AM EDT [facility] Patient Name: LUCHO OLIVARES : 1940 Exam Date/Time: 02/12/2024 11:00 Procedure: XR CHEST 1 VIEW Ordering Provider: ROSENBERG MICHAEL Reason For Exam: MRI clearance PORTABLE CHEST CLINICAL INDICATION: MRI clearance. COMPARISON: None. TECHNIQUE: A single frontal view of thorax was obtained and reviewed. [facility] Rico Hines DO - 02/12/2024 Patient Name: LUCHO GILLESPIE : 1940 Exam Date/Time: 02/12/2024 11:00 Procedure: XR CHEST 1 VIEW Ordering Provider: ROSENBERG MICHAEL Reason For Exam: MRI clearance PORTABLE CHEST CLINICAL INDICATION: MRI clearance. COMPARISON: None. TECHNIQUE: A single frontal view of thorax was obtained and reviewed. IMPRESSION: 1. Lines/ tubes/ devices: None. 2. Lungs and Pleura: No infiltrate or mass. No pneumothorax or pleural effusion. 3. Heart and mediastinum: Mild cardiomegaly. 4. Bones: Thoracic degenerative spondylosis. No radiopaque foreign body. Report Dictated on Electronically Signed By: Rico Hines DO Electronically Signed Date/Time: 02/12/2024 11:19 AM EDT [facility] Radiology Study observation (narrative) [facility] XR Chest Single viewOrdered By: Rico Hines on 02-12-2024 [facility] [employer] Work Phone: CT Head WO contraston 2023 There is no signific ant change when compared to imaging performed approximately 7 hours earlier. No acute intracranial hemorrhage. Old LEFT occipital lobe infarct. CRITICAL TEST COMMUNICATION: Dr. Syed was notified by telephone today at 11:36pm. ASPECTS: 10 Report Dictated on Electronically Signed By: Suzie Henriquez MD Electronically Signed Date/Time: 02/11/2024 11:40 PM EDT [facility] Patient Name: LUCHO OLIVARES : 1940 Exam Date/Time: 02/11/2024 23:39 Procedure: CT HEAD WO IV CONTRAST Ordering Provider: SYED MADIHAH Reason For Exam: Neuro deficit, acute, stroke suspected CT HEAD: Clinical Indication: 83-year-old female; stroke protocol; left pupil is blown; patient has received TPA at another facility a couple hours ago Imaging Technique: Multiple axial 3mm CT images of the head were obtained from the skull base to the vertex. Coronal and sagittal reconstructs were rendered. Dose reduction was employed with automated exposure control. Comparison: CT head 02/11/2024 at 15:19 (outside facility) (report not available) Time: 23:25 on 02/11/2024 FINDINGS: There is no intracranial hemorrhage. There is mild global volume loss with mild spinal vessel ischemia. There is a remote old left occipital lobe infarct with encephalomalacia changes in commensurate dilatation of the adjacent lateral ventricle occipital horn. Vascular atherosclerotic calcifications are present. The sinuses are pneumatized. The globes appear symmetric. Prior lens surgery noted. The mastoid air cells are pneumatized. [facility] Suzie Henriquez MD - 02/11/2024 Patient Name: LUCHO GILLESPIE : 1940 Exam Date/Time: 02/11/2024 23:39 Procedure: CT HEAD WO IV CONTRAST Ordering Provider: SYED MADIHAH Reason For Exam: Neuro deficit, acute, stroke suspected CT HEAD: Clinical Indication: 83-year-old female; stroke protocol; left pupil is blown; patient has received TPA at another facility a couple hours ago Imaging Technique: Multiple axial 3mm CT images of the head were obtained from the skull base to the vertex. Coronal and sagittal reconstructs were rendered. Dose reduction was employed with automated exposure control. Comparison: CT head 02/11/2024 at 15:19 (outside facility) (report not available) Time: 23:25 on 02/11/2024 FINDINGS: There is no intracranial hemorrhage. There is mild global volume loss with mild spinal vessel ischemia. There is a remote old left occipital lobe infarct with encephalomalacia changes in commensurate dilatation of the adjacent lateral ventricle occipital horn. Vascular atherosclerotic calcifications are present. The sinuses are pneumatized. The globes appear symmetric. Prior lens surgery noted. The mastoid air cells are pneumatized. IMPRESSION: There is no significant change when compared to imaging performed approximately 7 hours earlier. No acute intracranial hemorrhage. Old LEFT occipital lobe infarct. CRITICAL TEST COMMUNICATION: Dr. Syed was notified by telephone today at 11:36pm. ASPECTS: 10 Report Dictated on Electronically Signed By: Suzie Henriquez MD Electronically Signed Date/Time: 02/11/2024 11:40 PM EDT [facility] Radiology Study observation (narrative) [facility] CT Head WO contrastOrdered B y: Suzie Henriquez on 02-11-2024 [facility] [employer] Work Phone: Basic metabolic 2000 panelon 05-12-2022 Anion gap [Moles/Vol] 4 mmol/L Low 5-16 [facility] Comment on above: Order Comment: Speci men Type: BLOOD SPECIMENOrdering Facility: [facility] Address: [address] [place] [address] Performed By: #### 2 4321-2 ####[facility]ORY[facility] [id number] [place] [address] [place] Calcium [Mass/Vol] 8.0 mg/dL Low 8.5-10.5 [facility] Comment on above: Order Comment: Speci men Type: BLOOD SPECIMENOrdering Facility: [facility] Address: [address] [place] [address] Performed By: #### 2 4321-2 ####[facility]ORYCL[facility] [id number] [place] [address] [place] Chloride [Moles/Vol] 109 mmol/L High 98-107 [facility] Comment on above: Order Comment: Speci men Type: BLOOD SPECIMENOrdering Facility: [facility] Address: [address] [place] [address] Performed By: #### 2 4321-2 ####[facility]ORYCL[facility] [id number] [place] [address] [place] CO2 [Moles/Vol] 26 mmol/L Normal 21-32 [facility] Comment on above: Order Comment: Speci men Type: BLOOD SPECIMENOrdering Facility: [facility] Address: [address] [address] Performed By: #### 2 4321-2 ####[facility]ORYCL[facility] [id number] [place] [id number] [place] Creatinine [Mass/Vol] 1.23 mg/dL High 0.51-0.95 [facility] Comment on above: Order Comment: Speci men Type: BLOOD SPECIMENOrdering Facility: [facility] Address: [address] [address] Result Comment: Toña ents receiving either N-Acetylcysteine (NAC) or Metamizole prior to venipuncture, may have falsely depressed results. Performed By: #### 2 4321-2 ####[facility]ORYCLIA [id number] [place] [address] [place] ESTIMATED GLOMERULAR FILTRATION RATE 45 mL/min/1.73m??? Low >=60 [facility] Comment on above: Order Comment: Speci men Type: BLOOD SPECIMENOrdering Facility: [facility] Address: [address] [place] [address] Result Comment: Janice mated Glomerular Filtration Rate (eGFR) is calculated using the 2020 CKD-EPI creatinine equation. This equation utilizes serum creatinine, sex, and age as parameters. The creatinine assay has traceable calibration to isotope dilution-mass spectrometry. Refer to KDIGO guidelines for clinical interpretation. In patients with unstable renal function, e.g. those with acute kidney injury, the eGFR may not accurately reflect actual GFR. Performed By: #### 2 4321-2 ####[facility]ORYCLIA [id number] [place] [address] [place] Glucose [Mass/Vol] 196 mg/dL High 70-100 [facility] Comment on above: Order Comment: Speci men Type: BLOOD SPECIMENOrdering Facility: [facility] Address: [address] [address] Result Comment: The [place] [employer] (ADA) provides guidance for cutoff values for fasting glucose and random glucose. The ADA defines fasting as no caloric intake for at least 8 hours. Fasting plasma glucose results between 100 to 125 mg/dL indicate increased risk for diabetes (prediabetes). Fasting plasma glucose results greater than or equal to 126 mg/dL meet the criteria for diagnosis of diabetes. In the absence of unequivocal hyperglycemia, results should be confirmed by repeat testing. In a patient with classic symptoms of hyperglycemia or hyperglycemic crisis, random plasma glucose results greater than or equal to 200 mg/dL meet the criteria for diagnosis of diabetes. Reference: Standards of Medical Care in Diabetes 2016, [place] [employer]. Diabetes Care. 2016.39(Suppl 1). Results may be falsely elevated after the administration of Sulfapyridine. Results may be falsely depressed after the administration of Sulfasalazine. Performed By: #### 2 4321-2 ####[facility]ORYCLIA [id number] [place] [address] [place] Potassium [Moles/Vol] 4.1 mmol/L Normal 3.5-5.1 [facility] Comment on above: Order Comment: Speci men Type: BLOOD SPECIMENOrdering Facility: [facility] Address: [address] [place] [address] Performed By: #### 2 4321-2 ####[facility]ORYCLIA [id number] [place] [address] [place] Sodium [Moles/Vol] 139 mmol/L Normal 136-145 [facility] Comment on above: Order Comment: Speci men Type: BLOOD SPECIMENOrdering Facility: [facility] Address: [address] [address] Performed By: #### 2 4321-2 ####[facility]ORYCLIA [id number] [place] [address] [place] Urea nitrogen [Mass/Vol] 45 mg/dL High 7-26 [facility] Comment on above: Order Comment: Speci men Type: BLOOD SPECIMENOrdering Facility: [facility] Address: [address] [address] Performed By: #### 2 4321-2 ####[facility]ORYCLIA [id number] [address] CNDSon 05-12-2022 CNDS HNO ID: [id number] Author: Pascual Medina MD Service: General Internal Medicine Author Type: Physician Type: Discharge Summary Filed: 05/12/2022 5:09 PM Note Text: DISCHARGE SUMMARY PATIENT NAME: Lucho Browne ADMISSION DATE: 05/05/2022 DISCHARGE DATE: 05/12/2022 ATTENDING PHYSICIAN: Pascual Medina MD Code Status: Not on file Highest Readmission Risk Score: 26 The 30 day readmissions risk score is derived from an internally validated risk model which evaluates patient level characteristics, utilization history, medication orders and lab results up until the day of discharge. Patients with a score of 40 or above are considered highest risk for readmission. Specific patient level drivers will be listed at the bottom of the summary. CONSULTING TEAMS DURING HOSPITALIZATION: None Treatment Team: Attending Provider: Pascual Medina MD Attending: Jerome Hanna MD Attending: Dirk Charles MD Attending: MR EMERALD DALTON Consulting: Lucy Sneed MD REASON FOR HOSPITALIZATION: This is a 81-year-old female who yesterday 05/04/2022 underwent a procedure for right renal arterial stenosis with stent placement. Dr. He Koehler performed this procedure, however on the day of admission today, began having right flank pain. Her daughter recounts, that she has had increased confusion weakness and was found on the floor. She then presented to [place] via ambulance, CT scan of the head without contrast was negative, however CT of the abdomen showed a large peritoneal hematoma extending to the right groin. Her hemoglobin normally runs around 10.0, at the hospital emergency room was always in the range of 7.7. She did receive 2 units of packed red blood cells. She currently is being admitted for further evaluation and observation. DIAGNOSIS: Principal Problem (Resolved): Pseudoaneurysm of femoral artery (HCC) POA: Yes Active Problems: Diabetes (HCC) POA: Yes Chronic kidney disease, stage IV (severe) (HCC) POA: Unknown Resolved Problems: Acute renal failure superimposed on stage 3b chronic kidney disease (HCC) POA: Yes Metabolic encephalopathy POA: Yes Sepsis Ruled Out OPERATIONS DURING HOSPITALIZATION: Ultrasound-guided thrombin injection of right femoral pseudoaneurysm PROCEDURES DURING HOSPITALIZATION: No procedures performed HOSPITAL COURSE: Principal Problem: ??Pseudoaneurysm of femoral artery (HCC) POA: Yes ?Assessment AND?Plan: Patient with pseudoaneurysm status post thrombin injection. ?Patient also with hypertension continue aggressive blood pressure management with home medications addition of oral hydralazine and as needed hydralazine intravenous . ? Metabolic encephalopathy: ?Patient found to have urinary tract infection currently initiated on Rocephin will await urine culture ? 81-year-old female history of CKD stage III, diabetes, edema, hypertension, obstructive sleep apnea. ?Patient presents to the hospital with right groin pseudoaneurysm. ?Patient recently had procedure and was recently discharged 05/04 for right-sided renal artery stenosis status post stenting. ?Patient underwent ultrasound confirming pseudoaneurysm status post thrombin injection yesterday unfortunately still area and patient had sandbags placed yesterday. ?Patient will be going for repeat thrombin injection today. ?Patient's blood pressure has been difficult to control patient did make some improvement yesterday with IV hydralazine. ?Patient will be started on oral hydralazine with IV hydralazine as needed for breakthrough hypertension. ?We will need to maintain tight blood pressure control in setting of pseudoaneurysm formation. ?Patient will have close monitoring of hemoglobin we will transfuse if hemoglobin goes below 7. ?Patient will have a.m. labs performed on 05/08 ?05/08 patient today is more confused than yesterday. Yesterday when I spoke with patient she was alert and oriented x3. ?Patient today is alert x1. ?Patient is at risk for infection developing. ?We will obtain blood culture arterial blood gas ammonia urinalysis procalcitonin. ?I have very low suspicion of stroke given no focal deficits this appears to be more delirium present. ?Patient is going for repeat vascular ultrasound to evaluate pseudoaneurysm. ?Patient's hemoglobin remained stable patient does not need transfusion at this time. ?05/09?patient today still confused. ?Patient on IV antibiotics. ?I expect mental status to improve likely tomorrow. ?In regards to patient's pseudoaneurysm patient's arterial duplex today preliminarily showed resolution of pseudoaneurysm. ?But will wait for final result after read from vascular surgery. ?Patient hemoglobin has remained stable we will recheck again this morning and tomorrow. ? 05/10/2022: Hemoglobin stable at 7.2 and this is in the context of continuous (more content not included)... [facility] NUTRITIONon 05-12-2022 NUTRITION HNO ID: [id number] Author: Rema Valverde RD Service: Nutrition Therapy Author Type: Registered Dietitian Type: Nutrition Filed: 05/12/2022 11:44 AM Note Text: NUTRITION THERAPY SCREEN NOTE SERVICE DATE: 05/12/2022 SERVICE TIME: 1144 Care Plan: Continue current diet order. Discharge Recommendations: Diet Diet: Carbohydrate controlled Intake History: Nutrition Intake Prior to Admission: Greater than 75% estimated energy needs greater than or equal to 1 month Current Intake: Greater than 75% estimated energy needs Diet Orders (From admission, onward) Start Ordered 05/06/22114 DIET CARBOHYDRATE CONTROLLED START NOW Question: Carbohydrate Control Answer: CONSISTENT CARBOHYDRATE 05/06/22111 Anthropometrics: Height: 160 cm (5' 3) Weight: 104.6 kg (230 lb 11.2 oz) Usual Weight: (Pt unsure of UBW. Stated weight tends to fluctuate a lot.) Weight change percentage over time: Weight has been stable since admission. MNT Billing: $ Initial Assessment: 1-15 minutes SIGNATURE: Rema Valverde RD PATIENT NAME: Lucho Browne DATE: May 12, 2022 TIME: 11:44 AM [facility] SARS-CoV-2 RNA Resp Ql DIONNA+p robeon 05-12-2022 SARS-CoV-2 (COVID-19) RNA DIONNA+probe Ql (Resp) COVID 19 RESULT: SARS-CoV-2 (Agent of COVID-19) Not Detected by RT-PCR or equivalent method. This test has been authorized by FDA under an Emergency Use Authorization (EUA). [facility] Comment on above: Performed By: #### 9 4500-6 ####[facility]ORY[facility]IA [id number] [place] [id number] [facility] CONSULTon 05-11-2022 CONSULT HNO ID: [id number] Author: Lucy Sneed MD Service: Nephrology Author Type: Physician Type: Consults Filed: 05/11/2022 1:47 PM Note Text: CONSULT: NEPHROLOGY SERVICE SERVICE DATE: 05/11/2022 SERVICE TIME: 1:32 PM REASON FOR CONSULT: I am asked to see this patient in consultation for my opinion regarding blood pressure management. My recommendations will be communicated by way of shared medical record. REQUESTING PHYSICIAN: PRIMARY CARE PHYSICIAN: Avelino Deleon MD Subjective CHIEF COMPLAINT: Hypertension HPI: Ms. Browne is a 81 year old female who is very well-known to me on an outpatient basis. I am seeing her mainly for management of chronic kidney disease in the setting of very difficult to control hypertensive nephropathy. She also has diastolic heart failure, severe LISA. Her creatinine has been fluctuating lately around 2 to 2.4 mg/dL. She has a GFR in stage IV kidney disease. Her blood pressure was getting 1 more difficult to control and eventually her renal artery Doppler did show right renal artery stenosis. She was referred to vascular surgery, Dr. Hanna, and after coordinated care and discussion we have decided to proceed cautiously with right renal artery stenosis in order to better control her blood pressure. This decision was made because she was maxed out on several medications including at least 2 diuretics such as torsemide and spironolactone. The patient eventually did receive right renal artery stenting but unfortunately developed right femoral pseudoaneurysm. She was then admitted to the hospital for management of the same. She has been seen by Dr. Hanna who has treated her with thrombin injection. Since then the hematoma has resolved. Her kidney function actually is better than her baseline. Creatinine is right now at 1.35 mg/dL with GFR 40. Her potassium level is 3.9 [she usually struggles with hyperkalemia secondary to needing spironolactone and ARB]. She takes Veltassa at home on a regular basis to control potassium. Nephrology was consulted to help manage hypertension and to watch her kidney function. Of note during the course of this hospitalization the patient was found to have a urinary tract infection which seems to be polymicrobial. She has been treated with IV ceftriaxone. She has been having waxing and waning mental status. Currently she is resting comfortably in bed. No acute complaints. PAST MEDICAL HISTORY Diagnosis Date - Acute renal failure superimposed on stage 3b chronic kidney disease (HCC) - Diabetes (HCC) type 2 - Edema - History of echocardiogram 11/2021 ef60, severe lvh - Hypertension - Obstructive sleep apnea treated with bilevel positive airway pressure (BiPAP) PAST SURGICAL HISTORY Procedure Laterality Date - HYSTERECTOMY N/A 1989 - REMOVAL GALLBLADDER N/A 2011 No family history on file. Social History Tobacco Use - Smoking status: Never Smoker - Smokeless tobacco: Never Used Substance Use Topics - Alcohol use: Not Currently - Drug use: Not Currently MEDICATIONS: Prior to Admission Medications aspirin 325 mg tablet, Take 325 mg by mouth once daily., Disp: , Rfl: , 05/05/2022 at Unknown time carvedilol (COREG) 12.5 mg tablet, Take 12.5 mg by mouth twice daily with meals., Disp: , Rfl: , 05/05/2022 at Unknown time clopidogrel (PLAVIX) 75 mg tablet, Take 1 tablet by mouth once daily., Disp: 90 tablet, Rfl: 0, 05/05/2022 at Unknown time spironolactone (ALDACTONE) 100 mg tablet, Take 1 tablet by mouth once daily. (Patient taking differently: Take 50 mg by mouth every other day. ), Disp: 90 tablet, Rfl: 3, 05/05/2022 at Unknown time Cholecalciferol, Vitamin D3, (VITAMIN D) 25 mcg (1,000 unit) cap, Take 1,000 Units by mouth once daily., Disp: , Rfl: , 05/05/2022 at Unknown time losartan (COZAAR) 50 mg tablet, Take 1 tablet by mouth twice daily., Disp: 60 tablet, Rfl: 1, 05/05/2022 at Unknown time torsemide (DEMADEX) 20 mg tablet, Take 2 tablets by mouth once daily., Disp: 60 tablet, Rfl: 1, 05/05/2022 at Unknown time busPIRone (BUSPAR) 10 mg tablet, Take 10 mg by mouth twice daily. , Disp: , Rfl: , 05/05/2022 at Unknown time doxazosin (CARDURA) 4 mg tablet, Take 1 tablet by mouth daily at bedtime. (Patient taking differently: Take 4 mg by mouth twice daily. ), Disp: 90 tablet, Rfl: 3, 05/05/2022 at Unknown time escitalopram oxalate (LEXAPRO) 20 mg tablet, Take 20 mg by mouth once daily. , Disp: , Rfl: , 05/05/2022 at Unknown time ferrous sulfate 325 mg (65 mg iron) tablet, Take 325 mg by mouth daily with breakfast., Disp: , Rfl: , 05/05/2022 at Unknown time rosuvastatin (CRESTOR) 10 mg tablet, Take 10 mg by mouth once daily., Disp: , Rfl: , 05/05/2022 at Unknown time chlorthalidone (HYGROTON) 25 mg tablet, Take 25 mg by mouth every 48 hours., Disp: , Rfl: VELTASSA 8.4 gram pwpk, MIX 1 PACKET IN WATER. DRINK BY MOUTH ONCE DAILY, Disp: , Rfl: sodium bicarbonate 650 mg table (more content not included)... Normal [facility] Hematocrit Auto (Bld) [Volum e fraction]on 05-11-2022 Hematocrit (Bld) [Volume fraction] 22.0 % Low 36.0-46.0 [facility] Comment on above: Order Comment: Speci men Type: BLOOD SPECIMENOrdering Facility: [facility] Address: [address] [place] [address] Performed By: #### 4 544-3, 718-7 ####[facility]ORYCLIA [id number] [address] [facility] Hgb Bld-mCncon 05-11-2022 Hemoglobin (Bld) [Mass/Vol] 7.3 g/dL Low 11.5-15.5 [facility] Comment on above: Order Comment: Speci men Type: BLOOD SPECIMENOrdering Facility: [facility] Address: [address] [place] [address] Performed By: #### 4 544-3, 718-7 ####[facility]ORYCLIA [id number] [address] OF [place] THERAPY NTon 05-11-2022 THERAPY NT HNO ID: [id number] Author: Aguilar C Trembley, HOSPICE FELLOW Service: Physical Therapy Author Type: Mechanical Piping Designer Type: Therapy (PT/OT/Speech/Resp) Filed: 05/11/2022 4:11 PM Note Text: Attestation signed by Tanya Gray PT at 05/11/2022 4:22 PM I reviewed and agree with the documentation corresponding to this therapy visit. SIGNATURE: Tanya Gray PT DATE: May 11, 2022 TIME: 4:20 PM Physical Therapy Treatment SERVICE DATE: 05/11/2022 SERVICE TIME: 1519 to 1546 ROOM: [place] [address] Recommended Discharge Disposition: Subacute/SNF Recommended Discharge Disposition Comments: Pt is MAX/MIN Ax1 for all aspects oif functional mobility Recommended Discharge Disposition Due to: Patient requires an active, intensive rehabilitation therapy program due to: Anticipated Discharge Needs: Physical Assist at Home;Equipment Physical Assist at Home for: Transfers;Ambulation Supervision at Home due to: Decreased safety awareness;Impaired cognition Recommended Discharge Equipment: Wheeled Walker PT 6 Clicks Score: 12 Precautions/Activity Restrictions: Fall Risk Isolation Type: None Current Hospital Course: no changes Reason for Hospital Admission: right renal arterial stenosis with stent placement, (R) inguinal hernia, femoral artery psuedoaneurysm Relevant Past Medical History: HTN Response to Therapy Interventions: Good participation in activities Continue skilled needs due to: Functional mobility/skill impairments Physical Therapy Problem List: Safety Deficits;Decreased Activity Tolerance Treatment Interventions: Education;Strengthening ;Balance Training;Functional Mobility Training;Neuromuscular Re-education Plan for next visit: Bed mobility, Gait training, Sit to Stand Transfers, Standing Balance Home Environment Patient Lives With: Self/Alone Assistance Available: None Tub/Shower Type: walk in shower Equipment Owned: Cane;Grab Bars-Shower;Shower Chair Prior Functional Level: Within Functional Limits Prior Functional Level Comments: Pt reports independence with all activity prior to admission. She reports ambulating with a cane Patient Report: I am okay, I am uncomfortable. CURRENT FUNCTIONAL STATUS: Most recent performance Current Functional Mobility Assist Level Additional Information Rolling Supine to Sit Moderate Assistance Sit to Supine Scooting Minimal Assistance Sit to Stand Maximal Assistance (Pt able to achieve x3 sit<>stand trial with this therapist in anterior position. Pt able to take appox 5 lateral steps towards HOB MAX Ax1) Stand to Sit Maximal Assistance Bed to Chair Toilet/Commode Gait Moderate Assistance Gait Device: Wheeled Walker Gait Distance (feet): 5 Stairs Curb Step Car Transfer Blank rashid indicate activity not attempted General Deviations/Observations : Difficulty changing direction/turning;Loss of Balance;Non-functional gait speed;Shuffling Gait;Step length decreased Exercise Ankle Pumps (number of reps): 10 Glut Sets (number of reps): 10 LAQ (number of reps): 10 Balance: Static Sitting;Dynamic Sitting;Static Standing;Dynamic Standing Static Sitting Balance: Good Patient able to maintain balance without handhold support, limited postural sway Dynamic Sitting Balance: Good Patient accepts moderate challenge, able to maintain balance while picking up object off floor Static Standing Balance: Fair Patient able to maintain balance with handhold support, may require occasional minimal assistance Dynamic Standing Balance: Poor Patient unable to accept challenge or move without loss of balance JH-HLM: 5: Standing (1 or more minutes) Learning/Educational Needs: Plan of Care Goals for Plan of Care: Patient /Caregiver Goals: Walk;Go Home Goals: Patient will demonstrate understanding of importance of mobility during hospital stay and resolve all functional needs identified. Transfer supine to/from sit with: Supervision Transfer sit to/from stand with: Supervision Ambulate with: Supervision Distance: 40 Device: Wheeled Walker Rehab Potential: Good Patient will be discontinued from Physical Therapy when no further skilled needs are identified in this setting. PLAN: PT Frequency: 3 times per week Plan of Care developed with: Patient TREATMENT INTERVENTIONS: Therapy Diagnosis: Unsteadiness on feet Interventions Provided: Therapeutic Activity (17136);Therapeutic Exercise (82730) Therapeutic Exercise (02410) Treatment Minutes: 13 $ Therapeutic Exercise (19255) Billed Units: 1 unit Therapeutic Activity (97024) Treatment Minutes: 14 $ Therapeutic Activity (14686) Billed Units: 1 unit Training AND education provided in: Anatomy and impact on deficits, Standing balance, Transfers, Assistive device use The following therapeutic ski (more content not included)... Normal [facility] Basic metabolic 2000 panelon 05-10-2022 Anion gap [Moles/Vol] 6 mmol/L Normal 5-16 [facility] Comment on above: Order Comment: Speci men Type: BLOOD SPECIMENOrdering Facility: [facility] Address: [address] [place] [place] [address] Performed By: #### 2 4321-2 ####[facility]ATORYCLIA [id number] [place] [address] [place] Calcium [Mass/Vol] 8.1 mg/dL Low 8.5-10.5 [facility] Comment on above: Order Comment: Speci men Type: BLOOD SPECIMENOrdering Facility: [facility] Address: [address] [place] [address] Performed By: #### 2 4321-2 ####[facility]ATORYCLIA [id number] [place] [address] [place] Chloride [Moles/Vol] 111 mmol/L High 98-107 [facility] Comment on above: Order Comment: Speci men Type: BLOOD SPECIMENOrdering Facility: [facility] Address: [address] [place] [place] [address] Performed By: #### 2 4321-2 ####[facility]ATORYCLIA [id number] [place] [address] [place] CO2 [Moles/Vol] 27 mmol/L Normal 21-32 [facility] Comment on above: Order Comment: Speci men Type: BLOOD SPECIMENOrdering Facility: [facility] Address: [address] [place] [place] [address] Performed By: #### 2 4321-2 ####[facility]ORYCLIA [id number] [place] [address] [place] Creatinine [Mass/Vol] 1.35 mg/dL High 0.51-0.95 [facility] Comment on above: Order Comment: Ulises heredia Type: BLOOD SPECIMENOrdering Facility: [facility] Address: [address] [place] [id number] Result Comment: Toña ents receiving either N-Acetylcysteine (NAC) or Metamizole prior to venipuncture, may have falsely depressed results. Performed By: #### 2 4321-2 ####[facility]ORYCLIA [id number] [address] OF [place] ESTIMATED GLOMERULAR FILTRATION RATE 40 mL/min/1.73m??? Low >=60 [facility] Comment on above: Order Comment: Ulises heredia Type: BLOOD SPECIMENOrdering Facility: [facility] Address: [address] [place] [address] Result Comment: Janice mated Glomerular Filtration Rate (eGFR) is calculated using the 2020 CKD-EPI creatinine equation. This equation utilizes serum creatinine, sex, and age as parameters. The creatinine assay has traceable calibration to isotope dilution-mass spectrometry. Refer to KDIGO guidelines for clinical interpretation. In patients with unstable renal function, e.g. those with acute kidney injury, the eGFR may not accurately reflect actual GFR. Performed By: #### 2 4321-2 ####[facility]ATORYCLIA [id number] [place] [address] [place] Glucose [Mass/Vol] 112 mg/dL High 70-100 [facility] Comment on above: Order Comment: Ulises heredia Type: BLOOD SPECIMENOrdering Facility: [facility] Address: [address] [place] [phone] Result Comment: The [place] Diabetes Association (ADA) provides guidance for cutoff values for fasting glucose and random glucose. The ADA defines fasting as no caloric intake for at least 8 hours. Fasting plasma glucose results between 100 to 125 mg/dL indicate increased risk for diabetes (prediabetes). Fasting plasma glucose results greater than or equal to 126 mg/dL meet the criteria for diagnosis of diabetes. In the absence of unequivocal hyperglycemia, results should be confirmed by repeat testing. In a patient with classic symptoms of hyperglycemia or hyperglycemic crisis, random plasma glucose results greater than or equal to 200 mg/dL meet the criteria for diagnosis of diabetes. Reference: Standards of Medical Care in Diabetes 2016, [place] [employer]. Diabetes Care. 2016.39(Suppl 1). Results may be falsely elevated after the administration of Sulfapyridine. Results may be falsely depressed after the administration of Sulfasalazine. Performed By: #### 2 4321-2 ####[facility]ATORYCLIA [id number] [place] [address] [place] Potassium [Moles/Vol] 3.9 mmol/L Normal 3.5-5.1 [facility] Comment on above: Order Comment: Keshai men Type: BLOOD SPECIMENOrdering Facility: [facility] Address: [address] [place] [address] Performed By: #### 2 4321-2 ####[facility]ORYCLIA [id number] [address] [place] Sodium [Moles/Vol] 144 mmol/L Normal 136-145 [facility] Comment on above: Order Comment: Speci men Type: BLOOD SPECIMENOrdering Facility: [facility] Address: [address] [place] [address] Performed By: #### 2 4321-2 ####[facility]ORYCLIA [id number] [place] [address] [place] Urea nitrogen [Mass/Vol] 54 mg/dL High 7-26 [facility] Comment on above: Order Comment: Speci men Type: BLOOD SPECIMENOrdering Facility: [facility] Address: [address] [place] [address] Performed By: #### 2 4321-2 ####[facility]ATORYCLIA [id number] [place] [address] [place] CBC panel Auto (Bld)on 05-10 Erythrocyte distribution width (RBC) [Ratio] 13.3 % Normal 11.5-15.0 [facility] Comment on above: Order Comment: Speci men Type: BLOOD SPECIMENOrdering Facility: [facility] Address: [address] [place] [address] Performed By: #### 5 8410-2 ####[facility]ORYCLIA [id number] [address] [place] Hematocrit (Bld) [Volume fraction] 21.4 % Low 36.0-46.0 [facility] Comment on above: Order Comment: Speci men Type: BLOOD SPECIMENOrdering Facility: [facility] Address: [address] [place] [address] Performed By: #### 5 8410-2 ####[facility]ORYCLIA [id number] [address] [place] Hemoglobin (Bld) [Mass/Vol] 7.2 g/dL Low 11.5-15.5 [facility] Comment on above: Order Comment: Speci men Type: BLOOD SPECIMENOrdering Facility: [facility] Address: [address] [place] [address] Performed By: #### 5 8410-2 ####[facility]ATORYCLIA [id number] [address] [place] MCH (RBC) [Entitic mass] 30.5 pg Normal 26.0-34.0 [facility] Comment on above: Order Comment: Speci men Type: BLOOD SPECIMENOrdering Facility: [facility] Address: [address] [place] [address] Performed By: #### 5 8410-2 ####[facility]ORYCLIA [id number] [place] [address] [place] MCHC (RBC) [Mass/Vol] 33.6 g/dL Normal 30.5-36.0 [facility] Comment on above: Order Comment: Speci men Type: BLOOD SPECIMENOrdering Facility: [facility] Address: [address] [place] [address] Performed By: #### 5 8410-2 ####[facility]ORYCLIA [id number] [place] [address] [place] MCV (RBC) [Entitic vol] 90.7 fL Normal 80.0-100.0 M [facility] Comment on above: Order Comment: Speci men Type: BLOOD SPECIMENOrdering Facility: [facility] Address: [address] [place] [address] Performed By: #### 5 8410-2 ####[facility]ORYCLIA [id number] [place] [address] [place] Nucleated RBC (Bld) [#/Vol] 10*3/uL Normal <0.01 [facility] Comment on above: Order Comment: Speci men Type: BLOOD SPECIMENOrdering Facility: [facility] Address: [address] [place] [address] Performed By: #### 5 8410-2 ####[facility]ORYCLIA [id number] [place] [address] [place] Platelet mean volume (Bld) [Entitic vol] 12.8 fL High 9.0-12.7 [facility] Comment on above: Order Comment: Speci men Type: BLOOD SPECIMENOrdering Facility: [facility] Address: [address] [place] [address] Performed By: #### 5 8410-2 ####[facility]ORYCLIA [id number] [address] [place] Platelets (Bld) [#/Vol] 80 10*3/uL Low 150-400 M [facility] Comment on above: Order Comment: Speci men Type: BLOOD SPECIMENOrdering Facility: [facility] Address: [address] [place] [address] Result Comment: No c lot detected Performed By: #### 5 8410-2 ####[facility]ORYCLIA [id number] [address] [place] RBC (Bld) [#/Vol] 2.36 10*6/uL Low 3.90-5.20 [facility] Comment on above: Order Comment: Speci men Type: BLOOD SPECIMENOrdering Facility: [facility] Address: [address] [place] [address] Performed By: #### 5 8410-2 ####[facility]ATORYCLIA [id number] [place] [id number] [facility] WBC (Bld) [#/Vol] 5.45 10*3/uL Normal 3.70-11.00 [facility] Comment on above: Order Comment: Speci men Type: BLOOD SPECIMENOrdering Facility: [facility] Address: [address] [place] [address] Performed By: #### 5 8410-2 ####[facility]ATORYCLIA [id number] [place] [id number] [facility] NURSING PROGon 05-10-2022 NURSING PROG HNO ID: [id number] Author: Mariah Echols RN Service: Nursing Author Type: Registered Nurse Type: Nursing Progress Note Filed: 05/10/2022 7:55 PM Note Text: POTASSIUM WAS NOT 6.6. WRONG PATIENT AND DR. MEDINA AWARE. POTASSIUM WAS 3.9. DR. SNEED GOING TO BE CONSULTED FOR HYPERTENSION. SBP RUNNING IN UPPER 150'S 160'S AND DR. ADAM AQUINO. PT. UP IN CHAIR X 4 HRS WITH ASSIST OF [address]. [address] [facility] THERAPY NTon 05-10-2022 THERAPY NT HNO ID: [id number] Author: Maurisio Colon, PT Service: Physical Therapy Author Type: Physical Therapist Type: Therapy (PT/OT/Speech/Resp) Filed: 05/10/2022 4:07 PM Note Text: Physical Therapy Evaluation SERVICE DATE: 05/10/2022 SERVICE TIME: 1443 to 1507 ROOM: [place] [address] Recommended Discharge Disposition: Subacute/SNF Recommended Discharge Disposition Due to: Patient requires daily, facility-based rehabilitation from at least one discipline due to:;body-weight supported gait training needs;decline in functional status requiring daily skilled care;high level balance deficits Anticipated Discharge Needs: Physical Assist at Home;Supervision at Home Physical Assist at Home for: Transfers;Ambulation;St airs;Safety Supervision at Home due to: Decreased safety awareness PT 6 Clicks Score: 12 Precautions/Activity Restrictions: Fall Risk Isolation Type: None Pt tolerated PT evaluation fairly. Pt presents with limitations in all mobility and required physical assist and cuing for safety. They would be unsafe to return home at this time. They would benefit from further therapeutic services in order to decrease their impairments and increase their function Current Hospital Course: This is a 81-year-old female who yesterday 05/04/2022 underwent a procedure for right renal arterial stenosis with stent placement. Dr. He Koehler performed this procedure, however on the day of admission today, began having right flank pain. Her daughter recounts, that she has had increased confusion weakness and was found on the floor. She then presented to Hospital via ambulance, CT scan of the head without contrast was negative, however CT of the abdomen showed a large peritoneal hematoma Reason for Hospital Admission: right renal arterial stenosis with stent placement, (R) inguinal hernia, femoral artery psuedoaneurysm Relevant Past Medical History: HTN Response to Therapy Interventions: Good participation in activities Continue skilled needs due to: Functional mobility/skill impairments, Safety concerns Physical Therapy Problem List: Safety Deficits;Decreased Activity Tolerance;Functional Mobility Impairment;Balance Impaired Treatment Interventions: Education;Strengthening ;Balance Training;Functional Mobility Training;Neuromuscular Re-education Plan for next visit: Bed mobility, Fall prevention, Gait training, Sit to Stand Transfers, Standing Balance Home Environment Patient Lives With: Self/Alone Assistance Available: None Tub/Shower Type: walk in shower Equipment Owned: Cane;Grab Bars-Shower;Shower Chair Prior Functional Level: Within Functional Limits Prior Functional Level Comments: Pt reports independence with all activity prior to admission. She reports ambulating with a cane CURRENT FUNCTIONAL STATUS: Most recent performance Current Functional Mobility Assist Level Additional Information Rolling Supine to Sit Moderate Assistance Sit to Supine Scooting Sit to Stand Maximal Assistance Stand to Sit Maximal Assistance Bed to Chair Toilet/Commode Gait Moderate Assistance Gait Device: Wheeled Walker Gait Distance (feet): 5 Stairs Curb Step Car Transfer Blank rashid indicate activity not attempted General Deviations/Observations : Difficulty changing direction/turning;Loss of Balance;Non-functional gait speed;Shuffling Gait;Step length decreased Range of Motion: WFL Strength: Strength Limitation Comments Strength Limitation Comments: (B) LE grossly 3/5 Vital Signs Pre Assessment: Heart Rate, SpO2 Pre Heart Rate: 58 Pre SpO2: 98 (room air) Intra Assessment 1: Heart Rate Intra 1, SpO2 Intra 1 Intra Heart Rate 1: 71 Intra SpO2 1: 98 (room air) Post Assessment: Heart Rate Post, SpO2 Post Post Heart Rate: 72 Post SpO2: 98 (room air) Balance: Static Sitting;Dynamic Sitting;Static Standing;Dynamic Standing Static Sitting Balance: Good Patient able to maintain balance without handhold support, limited postural sway Dynamic Sitting Balance: Good Patient accepts moderate challenge, able to maintain balance while picking up object off floor Static Standing Balance: Fair Patient able to maintain balance with handhold support, may require occasional minimal assistance Dynamic Standing Balance: Poor Patient unable to accept challenge or move without loss of balance JH-HLM: 5: Standing (1 or more minutes) Learning/Educational Needs: Plan of Care Goals for Plan of Care: Patient /Caregiver Goals: Walk;Go Home Goals: Patient will demonstrate understanding of importance of mobility during hospital stay and resolve all functional needs identified. Transfer supine to/from sit with: Supervision Transfer sit to/from stand with: Supervision Ambulate with: Supervision Distance: 40 Device: Wheeled Walker Rehab Potential: Good Patient will be discontinued from Physical Therapy when no further skilled needs are identified in this setting. PLAN: PT Fr (more content not included)... Normal [facility] CBC panel Auto (Bld)on 05-09 Erythrocyte distribution width (RBC) [Ratio] 13.5 % Normal 11.5-15.0 [facility] Comment on above: Order Comment: Speci men Type: BLOOD SPECIMENOrdering Facility: [facility] Address: [address] [place] [address] Performed By: #### 5 8410-2 ####[facility]ATORYCLIA [id number] [place] [address] [place] Hematocrit (Bld) [Volume fraction] 19.8 % Low 36.0-46.0 [facility] Comment on above: Order Comment: Speci men Type: BLOOD SPECIMENOrdering Facility: [facility] Address: [address] [place] [address] Performed By: #### 5 8410-2 ####[facility]ATORYCLIA [id number] [place] [address] [place] Hemoglobin (Bld) [Mass/Vol] 6.6 g/dL Low 11.5-15.5 [facility] Comment on above: Order Comment: Speci men Type: BLOOD SPECIMENOrdering Facility: [facility] Address: [address] [place] [address] Performed By: #### 5 8410-2 ####[facility]ATORYCLIA [id number] [place] [address] [place] MCH (RBC) [Entitic mass] 30.1 pg Normal 26.0-34.0 [facility] Comment on above: Order Comment: Speci men Type: BLOOD SPECIMENOrdering Facility: [facility] Address: [address] [place] [address] Performed By: #### 5 8410-2 ####[facility]ATORYCLIA [id number] [place] [address] [place] MCHC (RBC) [Mass/Vol] 33.3 g/dL Normal 30.5-36.0 [facility] Comment on above: Order Comment: Speci men Type: BLOOD SPECIMENOrdering Facility: [facility] Address: [address] [place] [address] Performed By: #### 5 8410-2 ####[facility]ATORYCLIA [id number] [place] [address] [place] MCV (RBC) [Entitic vol] 90.4 fL Normal 80.0-100.0 M [facility] Comment on above: Order Comment: Speci men Type: BLOOD SPECIMENOrdering Facility: [facility] Address: [address] [place], [place] [address] Performed By: #### 5 8410-2 ####[facility]ATORYCLIA [id number] [place] [address] [place] Nucleated RBC (Bld) [#/Vol] 10*3/uL Normal <0.01 [facility] Comment on above: Order Comment: Speci men Type: BLOOD SPECIMENOrdering Facility: [facility] Address: [address] [place], [place] [address] Performed By: #### 5 8410-2 ####[facility]ATORYCLIA [id number] [place] [address] [place] Platelet mean volume (Bld) [Entitic vol] 12.9 fL High 9.0-12.7 [facility] Comment on above: Order Comment: Speci men Type: BLOOD SPECIMENOrdering Facility: [facility] Address: [address] [place], [place] [address] Performed By: #### 5 8410-2 ####[facility]ATORYCLIA [id number] [place] [address] [place] Platelets (Bld) [#/Vol] 82 10*3/uL Low 150-400 M [facility] Comment on above: Order Comment: Speci men Type: BLOOD SPECIMENOrdering Facility: [facility] Address: [address] [place] [address] Result Comment: No c lot detected Performed By: #### 5 8410-2 ####[facility]ATORYCLIA [id number] [place] [address] [place] RBC (Bld) [#/Vol] 2.19 10*6/uL Low 3.90-5.20 [facility] Comment on above: Order Comment: Speci men Type: BLOOD SPECIMENOrdering Facility: [facility] Address: [address] [place], [place] [address] Performed By: #### 5 8410-2 ####[facility]ATORYCLIA [id number] [place] [address] [place] WBC (Bld) [#/Vol] 6.26 10*3/uL Normal 3.70-11.00 [facility] Comment on above: Order Comment: Speci men Type: BLOOD SPECIMENOrdering Facility: [facility] Address: [address] [place], [place] [address] Performed By: #### 5 8410-2 ####[facility]ATORYCLIA [id number] [place] [id number] [facility] THERAPY NTon 05-09-2022 THERAPY NT HNO ID: [id number] Author: Maurisio Colon PT Service: Physical Therapy Author Type: Physical Therapist Type: Therapy (PT/OT/Speech/Resp) Filed: 05/09/2022 1:56 PM Note Text: PHYSICAL THERAPY MISSED VISIT SERVICE DATE: 05/09/2022 SERVICE TIME: 1356 to 1356 ROOM: [place] [address] Patient not seen due to Hold: Clinical Appropriateness (low hgb). SIGNATURE: Maurisio Colon PT PATIENT NAME: Lucho Browne DATE: May 09, 2022 TIME: 1:[address] [facility] VDUGRSon 05-09-2022 VDUGRS Non-Invasive Vascula r Laboratory [facility] Lower Extremity Arterial Duplex for Pseudoaneurysm Unilateral - Right Date of service/time: 05/09/2022 7:36:49 AM Name: LUCHO BROWNE Date of : 1940 Age: 81 years Gender: F Clinical Indication Recheck following thrombin injection. TECHNIQUE -------- An arterial duplex ultrasound examination was performed, including grayscale imaging and color Doppler and spectral Doppler examination of the below mentioned arteries. FINDINGS -------- RIGHT SIDE Common femoral artery : PSV: 183 cm/s. Biphasic waveform. Superficial femoral artery : PSV: 162 cm/s. Biphasic waveform. Profunda femoral artery : PSV: 71 cm/s. Biphasic waveform. Common femoral vein: Doppler: normal, respirophasic flow. Femoral vein: Doppler: normal, respirophasic flow. Profunda vein: Doppler: normal, respirophasic flow. IMPRESSION RIGHT SIDE Negative for pseudoaneurysm. Common femoral artery, Profunda femoral artery and Superficial femoral artery patent . . Psuedoaneurysm resolved status post thrombin injection. Technologist: Jerry Mendoza Ordering physician: JEROME HANNA Interpreting physician: Jerome Hanna MD Final CC [employer] Image : [id number] SUID See Link below for Image Normal [facility] ARTERIAL BLOOD GASESon 05-08 Base excess Calc (Bld) [Moles/Vol] 1 mmol/L Normal 0-2 [facility] Comment on above: Order Comment: Speci men Type: ARTERIAL BLOOD SPECIMENOrdering Facility: [facility] Address: [address] [place] [address] Performed By: #### A LLBG ####[facility] RESPIRATORY THERAPYCLIA [id number] [address] Body temperature 98.6 [degF] Normal [facility] Comment on above: Order Comment: Speci men Type: ARTERIAL BLOOD SPECIMENOrdering Facility: [facility] Address: [address] [place] [address] Performed By: #### A LLBG ####[facility] RESPIRATORY THERAPYCLIA [id number] [place] [address] [place] Calcium.ionized (Bld) [Mass/Vol] 1.12 mmol/L Normal 1.08-1.30 [facility] Comment on above: Order Comment: Speci men Type: ARTERIAL BLOOD SPECIMENOrdering Facility: [facility] Address: [address] [place] [address] Performed By: #### A LLBG ####[facility] RESPIRATORY THERAPYCLIA [id number] [address] [place] Carboxyhemoglobin (BldA) [Mass fraction] 0.6 % Normal 0.0-2.0 [facility] Comment on above: Order Comment: Speci men Type: ARTERIAL BLOOD SPECIMENOrdering Facility: [facility] Address: [address] [place] [address] Result Comment: Carb oxyhemoglobin Reference Range for Smokers: 2.0-8.0% Performed By: #### A LLBG ####[facility] RESPIRATORY THERAPYCLIA [id number] [place] [address] [place] CO2 (Bld) [Partial pressure] 35 mm Hg Low 36-46 [facility] Comment on above: Order Comment: Speci men Type: ARTERIAL BLOOD SPECIMENOrdering Facility: [facility] Address: [address] [place] [address] Performed By: #### A LLBG ####[facility] RESPIRATORY THERAPYCLIA [id number] [place] [address] [place] FIO2 21.0 % Normal [facility] Comment on above: Order Comment: Speci men Type: ARTERIAL BLOOD SPECIMENOrdering Facility: [facility] Address: [address] [place] [address] Performed By: #### A LLBG ####[facility] RESPIRATORY THERAPYCLIA [id number] [address] [place] Glucose [Mass/Vol] 154 mg/dL High 60-105 [facility] Comment on above: Order Comment: Speci men Type: ARTERIAL BLOOD SPECIMENOrdering Facility: [facility] Address: [address] [place] [address] Performed By: #### A LLBG ####[facility] RESPIRATORY THERAPYCLIA [id number] [place] [address] [place] HCO3 (Bld) [Moles/Vol] 25 mmol/L Normal 22-26 [facility] Comment on above: Order Comment: Speci men Type: ARTERIAL BLOOD SPECIMENOrdering Facility: [facility] Address: [address] [place] [address] Performed By: #### A LLBG ####[facility] RESPIRATORY THERAPYCLIA [id number] [place] [address] [place] Hemoglobin (Bld) [Mass/Vol] 7.7 g/dL Low 11.5-15.5 [facility] Comment on above: Order Comment: Speci men Type: ARTERIAL BLOOD SPECIMENOrdering Facility: [facility] Address: [address] [place] [address] Performed By: #### A LLBG ####[facility] RESPIRATORY THERAPYCLIA [id number] [place] [address] [place] Lactate [Moles/Vol] 1.4 mmol/L Normal 0.5-2.2 [facility] Comment on above: Order Comment: Speci men Type: ARTERIAL BLOOD SPECIMENOrdering Facility: [facility] Address: [address] [place] [address] Performed By: #### A LLBG ####[facility] RESPIRATORY THERAPYCLIA [id number] [place] [address] [place] Methemoglobin (Bld) [Mass fraction] 0.3 % Normal 0.0-1.5 [facility] Comment on above: Order Comment: Speci men Type: ARTERIAL BLOOD SPECIMENOrdering Facility: [facility] Address: [address] [place] [address] Performed By: #### A LLBG ####[facility] RESPIRATORY THERAPYCLIA [id number] [address] [place] O2 THERAPY RA=Room Air Normal [facility] Comment on above: Order Comment: Speci men Type: ARTERIAL BLOOD SPECIMENOrdering Facility: [facility] Address: [address] [place] [address] Performed By: #### A LLBG ####[facility] RESPIRATORY THERAPYCLIA [id number] [place] [address] [place] [facility] [place] Oxygen (Bld) [Partial pressure] 83 mm Hg Low 85-95 [facility] Comment on above: Order Comment: Speci men Type: ARTERIAL BLOOD SPECIMENOrdering Facility: [facility] Address: [address] [place] [address] Performed By: #### A LLBG ####[facility] RESPIRATORY THERAPYCLIA [id number] [place] [address] [place] Oxyhemoglobin (BldA) [Mass fraction] 94 % Low 95-98 [facility] Comment on above: Order Comment: Speci men Type: ARTERIAL BLOOD SPECIMENOrdering Facility: [facility] Address: [address] [place] [address] Performed By: #### A LLBG ####[facility] RESPIRATORY THERAPYCLIA [id number] [place] [address] [place] pH (Bld) 7.47 [pH] High 7.35-7.45 [facility] Comment on above: Order Comment: Speci men Type: ARTERIAL BLOOD SPECIMENOrdering Facility: [facility] Address: [address] [place] [address] Performed By: #### A LLBG ####[facility] RESPIRATORY THERAPYCLIA [id number] [address] [place] Potassium [Moles/Vol] 4.0 mmol/L Normal 2.5-6.0 [facility] Comment on above: Order Comment: Speci men Type: ARTERIAL BLOOD SPECIMENOrdering Facility: [facility] Address: [address] [place] [address] Performed By: #### A LLBG ####[facility] RESPIRATORY THERAPYCLIA [id number] [place] [address] [place] Sodium [Moles/Vol] 135 mmol/L Low 136-144 [facility] Comment on above: Order Comment: Speci men Type: ARTERIAL BLOOD SPECIMENOrdering Facility: [facility] Address: [address] [place] [address] Performed By: #### A LLBG ####[facility] RESPIRATORY THERAPYCLIA [id number] [place] [address] [place] Ammonia Plas-sCncon 05-08-20 Ammonia (P) [Moles/Vol] 15 umol/L Normal 11-32 M [facility] Comment on above: Order Comment: Speci men Type: BLOOD SPECIMENOrdering Facility: [facility] Address: [address] [place] [address] Result Comment: Resu lts may be falsely depressed after the administration of Sulfapyridine. Results may be falsely elevated after the administration of Sulfasalazine. Performed By: #### 1 6362-6 ####[facility]ORYCLIA [id number] [place] [address] [place] Bacteria Bld Culton 05-08-20 22 Bacteria identified Cx Nom (Bld) CULTURE, BLOOD: No growth [address] [facility] Comment on above: Performed By: #### 6 00-7 ####[facility]ATORYCLIA [id number] [place] [address] [place] Bacteria Ur Culton 2 Bacteria identified Cx Nom (U) CULTURE, URINE: >=100,000 CFU/mL Three or more organisms, no one type predominant, suggesting contamination during collection. Recollect if clinically indicated. Abnormal [facility] Comment on above: Performed By: #### 6 30-4 ####[facility]ATORYCLIA [id number] [place] [address] [place] Basic metabolic 2000 panelon 05-08-2022 Anion gap [Moles/Vol] 5 mmol/L Normal 5-16 [facility] Comment on above: Order Comment: Speci men Type: BLOOD SPECIMEN [facility] Address: [address] [place] [address] Performed By: #### 5 7021-8 #### [facility] CLIA [id number] [address] [place] [address] [place] Calcium [Mass/Vol] 8.2 mg/dL Low 8.5-10.5 [facility] Comment on above: Order Comment: Speci men Type: BLOOD SPECIMEN [facility] Address: [address] [place] [address] Performed By: #### 5 7021-8 #### [facility] CLIA [id number] [address] [place] [address] [place] Chloride [Moles/Vol] 107 mmol/L Normal 98-107 [facility] Comment on above: Order Comment: Speci men Type: BLOOD SPECIMEN [facility] Address: [address] [address] Performed By: #### 5 7021-8 #### [facility] CLIA [id number] [address] [place] [address] [place] CO2 [Moles/Vol] 27 mmol/L Normal 21-32 [facility] Comment on above: Order Comment: Ulises heredia Type: BLOOD SPECIMEN [facility] Address: [address] [place] [address] Performed By: #### 5 7021-8 #### [facility] CLIA [id number] [address] [place] [address] [place] Creatinine [Mass/Vol] 1.83 mg/dL High 0.51-0.95 [facility] Comment on above: Order Comment: Ulises heredia Type: BLOOD SPECIMEN [facility] Address: [address] [place] [address] Result Comment: Toña ents receiving either N-Acetylcysteine (NAC) or Metamizole prior to venipuncture, may have falsely depressed results. Performed By: #### 5 7021-8 #### [facility] CLIA [id number] [address] [place] [address] [place] ESTIMATED GLOMERULAR FILTRATION RATE 28 mL/min/1.73m??? Low >=60 [facility] Comment on above: Order Comment: Ulises heredia Type: BLOOD SPECIMEN [facility] Address: [address] [place] [address] Result Comment: Janice mated Glomerular Filtration Rate (eGFR) is calculated using the 2020 CKD-EPI creatinine equation. This equation utilizes serum creatinine, sex, and age as parameters. The creatinine assay has traceable calibration to isotope dilution-mass spectrometry. Refer to KDIGO guidelines for clinical interpretation. In patients with unstable renal function, e.g. those with acute kidney injury, the eGFR may not accurately reflect actual GFR. Performed By: #### 5 7021-8 #### [facility] CLIA [id number] [address] [place] [address] [place] Glucose [Mass/Vol] 114 mg/dL High 70-100 [facility] Comment on above: Order Comment: Ulises heredia Type: BLOOD SPECIMEN [facility] Address: [address] [place], [place] [id number] Result Comment: The [place] [employer] (ADA) provides guidance for cutoff values for fasting glucose and random glucose. The ADA defines fasting as no caloric intake for at least 8 hours. Fasting plasma glucose results between 100 to 125 mg/dL indicate increased risk for diabetes (prediabetes). Fasting plasma glucose results greater than or equal to 126 mg/dL meet the criteria for diagnosis of diabetes. In the absence of unequivocal hyperglycemia, results should be confirmed by repeat testing. In a patient with classic symptoms of hyperglycemia or hyperglycemic crisis, random plasma glucose results greater than or equal to 200 mg/dL meet the criteria for diagnosis of diabetes. Reference: Standards of Medical Care in Diabetes 2016, [place] [employer]. Diabetes Care. 2016.39(Suppl 1). Results may be falsely elevated after the administration of Sulfapyridine. Results may be falsely depressed after the administration of Sulfasalazine. Performed By: #### 5 7021-8 #### [facility] CLIA [id number] [address] [place] [address] [place] Potassium [Moles/Vol] 4.3 mmol/L Normal 3.5-5.1 [facility] Comment on above: Order Comment: Ulises heredia Type: BLOOD SPECIMEN Ordering Facility: [facility] Address: [address] [place] [address] Performed By: #### 5 7021-8 #### [facility] CLIA [id number] [address] [place] [address] [place] Sodium [Moles/Vol] 139 mmol/L Normal 136-145 [facility] Comment on above: Order Comment: Keshai giovanna Type: BLOOD SPECIMEN Ordering Facility: [facility] Address: [address] [place] [address] Performed By: #### 5 7021-8 #### [facility] CLIA [id number] [address] [place] [address] [place] Urea nitrogen [Mass/Vol] 64 mg/dL High 7-26 [facility] Comment on above: Order Comment: Keshai men Type: BLOOD SPECIMEN Ordering Facility: [facility] Address: [address] [place] [address] Performed By: #### 5 7021-8 #### [facility] CLIA [id number] [address] [place] [address] [place] CBC panel Auto (Bld)on 05-08 Erythrocyte distribution width (RBC) [Ratio] 13.5 % Normal 11.5-15.0 [facility] Comment on above: Order Comment: Speci men Type: BLOOD SPECIMEN Ordering Facility: [facility] Address: [address] [place] [address] Performed By: #### 5 7021-8 #### [facility] CLIA [id number] [address] [place] [address] [place] Hematocrit (Bld) [Volume fraction] 21.1 % Low 36.0-46.0 [facility] Comment on above: Order Comment: Speci men Type: BLOOD SPECIMEN Ordering Facility: [facility] Address: [address] [place] [address] Performed By: #### 5 7021-8 #### [facility] CLIA [id number] [address] [place] [address] [place] Hemoglobin (Bld) [Mass/Vol] 7.1 g/dL Low 11.5-15.5 [facility] Comment on above: Order Comment: Speci men Type: BLOOD SPECIMEN Ordering Facility: [facility] Address: [address] [place] [address] Performed By: #### 5 7021-8 #### [facility] CLIA [id number] [address] [place] [address] [place] MCH (RBC) [Entitic mass] 29.8 pg Normal 26.0-34.0 [facility] Comment on above: Order Comment: Speci men Type: BLOOD SPECIMEN Ordering Facility: [facility] Address: [address] [place] [address] Performed By: #### 5 7021-8 #### [facility] CLIA [id number] [address] [place] [address] [place] MCHC (RBC) [Mass/Vol] 33.6 g/dL Normal 30.5-36.0 [facility] Comment on above: Order Comment: Speci men Type: BLOOD SPECIMEN Ordering Facility: [facility] Address: [address] [place] [address] Performed By: #### 5 7021-8 #### [facility] CLIA [id number] [address] [place] [address] [place] MCV (RBC) [Entitic vol] 88.7 fL Normal 80.0-100.0 M [facility] Comment on above: Order Comment: Speci men Type: BLOOD SPECIMEN Ordering Facility: [facility] Address: [address] [place] [address] Performed By: #### 5 7021-8 #### [facility] CLIA [id number] [address] [place] [address] [place] Nucleated RBC (Bld) [#/Vol] 10*3/uL Normal <0.01 [facility] Comment on above: Order Comment: Speci men Type: BLOOD SPECIMEN Ordering Facility: [facility] Address: [address] [place] [address] Performed By: #### 5 7021-8 #### [facility] CLIA [id number] [address] [place] [address] [place] Platelet mean volume (Bld) [Entitic vol] 12.4 fL Normal 9.0-12.7 [facility] Comment on above: Order Comment: Speci men Type: BLOOD SPECIMEN Ordering Facility: [facility] Address: [address] [place] [address] Performed By: #### 5 7021-8 #### [facility] CLIA [id number] [address] [place] [address] [place] Platelets (Bld) [#/Vol] 74 10*3/uL Low 150-400 M [facility] Comment on above: Order Comment: Speci men Type: BLOOD SPECIMEN Ordering Facility: [facility] Address: [address] [place], [place] [address] Result Comment: No c lot detected Performed By: #### 5 7021-8 #### [facility] CLIA [id number] [address] [place], [place] [address] [facility] RBC (Bld) [#/Vol] 2.38 10*6/uL Low 3.90-5.20 [facility] Comment on above: Order Comment: Speci men Type: BLOOD SPECIMEN Ordering Facility: [facility] Address: [address] [place], [place] [address] Performed By: #### 5 7021-8 #### [facility] CLIA [id number] [address] [place], [place] [address] [facility] WBC (Bld) [#/Vol] 7.25 10*3/uL Normal 3.70-11.00 [facility] Comment on above: Order Comment: Speci men Type: BLOOD SPECIMEN Ordering Facility: [facility] Address: [address] [place] [address] Performed By: #### 5 7021-8 #### [facility] CLIA [id number] [address] [place] [address] NURSING PROGon 05-08-2022 NURSING PROG HNO ID: [id number] Author: Caty Snyder RN Service: Nursing Author Type: Registered Nurse Type: Nursing Progress Note Filed: 05/07/2022 10:25 PM Note Text: Direct messaged Joy Gonzales in regards to low BP of patient 130/43 and patient to be receiving 3 BP meds. Was told to hold losartan and hydralazine but give Cardura tablet. Normal [facility] Procalcitonin SerPl-mCncon 0 05-08-2022 Procalcitonin [Mass/Vol] 0.13 ng/mL Normal 0.00-0.50 [facility] Comment on above: Order Comment: Speci men Type: BLOOD SPECIMENOrdering Facility: [facility] Address: [address] [place] [address] Result Comment: PCT Concentration Interpretation PCT <=0.1 ng/mL: Normal range for healthy adults PCT >0.1 ng/mL and <0.5 ng/mL: Systemic infection (sepsis) is possible and may require antibiotic treatment, but other conditions are known to elevate PCT as well. PCT >0.5 ng/mL: Should be considered at risk for developing severe sepsis or septic shock. PCT >2.0 ng/mL: Important systemic inflammatory response. Almost exclusively indicates episode of severe bacterial sepsis or septic shock. Performed By: #### 3 3959-8 ####[facility] [id number] [address] [place] Urinalysis complete panel (U )on 05-08-2022 Bacteria LM.HPF (Urine sed) [#/Area] Rare Abnormal None Seen [facility] Comment on above: Order Comment: Speci men Type: BLOOD SPECIMEN Ordering Facility: [facility] Address: [address] [place] [address] Performed By: #### 5 7021-8 #### [facility] CLIA [id number] [address] [place] [address] [place] Bilirubin Ql (U) Negative Normal Negative [facility] Comment on above: Order Comment: Speci men Type: BLOOD SPECIMEN Ordering Facility: [facility] Address: [address] [place] [address] Performed By: #### 5 7021-8 #### [facility] CLIA [id number] [address] [place] [address] [place] Clarity (Unsp spec) Cloudy Abnormal Clear [facility] Comment on above: Order Comment: Speci men Type: BLOOD SPECIMEN Ordering Facility: [facility] Address: [address] [place] [address] Performed By: #### 5 7021-8 #### [facility] CLIA [id number] [address] [place] [address] [place] Color (U) Marlene Abnormal Yellow [facility] Comment on above: Order Comment: Speci men Type: BLOOD SPECIMEN Ordering Facility: [facility] Address: [address] [place], [place] [address] Performed By: #### 5 7021-8 #### [facility] CLIA [id number] [address] [place] [address] [place] Epithelial cells LM.HPF (Urine sed) [#/Area] Few Normal [facility] Comment on above: Order Comment: Speci men Type: BLOOD SPECIMEN Ordering Facility: [facility] Address: [address] [place] [address] Performed By: #### 5 7021-8 #### [facility] CLIA [id number] [address] [place] [address] [place] Glucose Test strip (U) [Mass/Vol] Negative Normal Negative [facility] Comment on above: Order Comment: Speci men Type: BLOOD SPECIMEN Ordering Facility: [facility] Address: [address] [place] [address] Performed By: #### 5 7021-8 #### [facility] CLIA [id number] [address] [place] [address] [place] Hemoglobin Ql (U) 2+ Abnormal Negative [facility] Comment on above: Order Comment: Speci men Type: BLOOD SPECIMEN Ordering Facility: [facility] Address: [address] [place] [address] Performed By: #### 5 7021-8 #### [facility] CLIA [id number] [address] [place] [address] [place] Ketones Ql (U) Negative Normal Negative [facility] Comment on above: Order Comment: Speci men Type: BLOOD SPECIMEN Ordering Facility: [facility] Address: [address] [place], [place] [address] Performed By: #### 5 7021-8 #### [facility] CLIA [id number] [address] [place] [address] [place] Leukocyte esterase Test strip Ql (U) 3+ Abnormal Negative [facility] Comment on above: Order Comment: Speci men Type: BLOOD SPECIMEN Ordering Facility: [facility] Address: [address] [place], [place] [address] Performed By: #### 5 7021-8 #### [facility] CLIA [id number] [address] [place] [address] [place] Nitrite Ql (U) Positive Abnormal Negative [facility] Comment on above: Order Comment: Speci men Type: BLOOD SPECIMEN Ordering Facility: [facility] Address: [address] [place] [address] Performed By: #### 5 7021-8 #### [facility] CLIA [id number] [address] [place] [address] [place] pH (U) 8.0 [pH] Normal 5.0-8.0 [facility] Comment on above: Order Comment: Speci men Type: BLOOD SPECIMEN Ordering Facility: [facility] Address: [address] [place] [address] Performed By: #### 5 7021-8 #### [facility] CLIA [id number] [address] [place] [address] [place] Protein (U) [Mass/Vol] Normal [facility] Comment on above: Order Comment: Speci men Type: BLOOD SPECIMEN Ordering Facility: [facility] Address: [address] [place] [address] Result Comment: Visi ble blood causes falsely elevated results for analyte Protein. Due to this limitation, Protein will not be reported for patients whose urine contains visible blood. Performed By: #### 5 7021-8 #### [facility] CLIA [id number] [address] [place] [address] [place] RBC LM.HPF (Urine sed) [#/Area] 0-3 /HPF Normal 0-3 /HPF [facility] Comment on above: Order Comment: Speci men Type: BLOOD SPECIMEN Ordering Facility: [facility] Address: [address] [place] [address] Performed By: #### 5 7021-8 #### [facility] CLIA [id number] [address] [place], [place] [address] [place] Specific gravity (U) [Rel density] 1.016 Normal 1.005-1.030 [facility] Comment on above: Order Comment: Speci men Type: BLOOD SPECIMEN Ordering Facility: [facility] Address: [address] [place] [address] Performed By: #### 5 7021-8 #### [facility] CLIA [id number] [address] [place] [address] Urobilinogen Ql (U) Negative Normal Negative [facility] Comment on above: Order Comment: Speci men Type: BLOOD SPECIMEN Ordering Facility: [facility] Address: [address] [place] [address] Performed By: #### 5 7021-8 #### [facility] CLIA [id number] [address] [place] [address] [place] WBC LM.HPF (Urine sed) [#/Area] 6-10 /HPF Abnormal 0-5 /HPF [facility] Comment on above: Order Comment: Speci men Type: BLOOD SPECIMEN Ordering Facility: [facility] Address: [address] [place] [address] Performed By: #### 5 7021-8 #### [facility] CLIA [id number] [address] [place] [address] [place] Hgb Bld-mCncon 05-07-2022 Hemoglobin (Bld) [Mass/Vol] 7.6 g/dL Low 11.5-15.5 [facility] Comment on above: Order Comment: Speci men Type: BLOOD SPECIMEN Ordering Facility: [facility] Address: [address] [place] [address] Performed By: #### 5 7021-8 #### [facility] CLIA [id number] [address] [place] [address] [place] Hemoglobin (Bld) [Mass/Vol] 7.1 g/dL Low 11.5-15.5 [facility] Comment on above: Order Comment: Speci men Type: BLOOD SPECIMEN Ordering Facility: [facility] Address: [address] [place], [place] [address], [place] [address] Performed By: #### 2 4321-2 #### [facility] CLIA [id number] [address] [place], [place] [address] [place] Hemoglobin (Bld) [Mass/Vol] 7.0 g/dL Low 11.5-15.5 [facility] Comment on above: Order Comment: Speci men Type: BLOOD SPECIMEN Ordering Facility: [facility] Address: [address] [place] [address] Performed By: #### 2 4321-2 #### [facility] CLIA [id number] [address] [place], [place] [address] [facility] OPERATIVE NOon 05-07-2022 OPERATIVE NO HNO ID: [id number] Author: Jerome Hanna MD Service: Vascular Surgery Author Type: Physician Type: Operative Report Filed: 05/07/2022 1:28 PM Note Text: OPERATIVE/PROCEDURE REPORT LOG ID: * No surgery found * SURGERY/PROCEDURE DATE: 05/07/2022 INCISION/PROCEDURE START TIME: 1300 INCISION CLOSE/PROCEDURE END TIME: 1:26 PM SURGEON(S)/PROCEDURALIS T(S) AND [employer] SERVICES DEVELOPER(S): Dr. Hanna * Surgery not found * SURGERY/PROCEDURE(S): Ultrasound-guided thrombin injection of right femoral pseudoaneurysm ANESTHESIA: Local SURGERY/PROCEDURE DETAILS: After obtaining informed consent, the right groin was prepped and draped in a sterile fashion. With the assistance of the metal technician, the pseudoaneurysm was identified with duplex ultrasound. This evening, the pseudoaneurysm was slightly smaller than when it was injected yesterday afternoon. Skin overlying the area was infiltrated with local anesthetic. Using an echogenic needle, the pseudoaneurysm was cannulated under ultrasound guidance. Under color-flow duplex, a small amount of thrombin was injected directly into the pseudoaneurysm sac, showing successful thrombosis. It almost appeared as if a small area was still patent at the very proximal neck, but as we observe this area under ultrasound guidance for a few minutes, it completely thrombosed off. Patient will be transferred back to her room with sandbag in place and bedrest orders until the morning. I will repeat right groin arterial duplex tomorrow morning. The femoral vessels remained widely patent. Pre and post procedure vascular exam of the affected extremity remained stable. Pre and post procedure ABIs were also stable. PRE-OP/PRE-PROCEDURE DIAGNOSIS: Right femoral pseudoaneurysm POST-OP/POST-PROCEDURE DIAGNOSIS: Same as Preop ESTIMATED BLOOD LOSS: Minimal SPECIMENS: None IMPLANTABLE DEVICES: None DRAINS: None COMPLICATIONS: None PARTICIPATION IN SURGERY/PROCEDURE: I/primary surgeon/proceduralist performed the entire procedure. SIGNATURE: Jerome Hanna MD PATIENT NAME: Lucho Browne DATE: May 07, 2022 TIME: 1:[address] [facility] VDUGRSon 05-07-2022 VDUGRS Non-Invasive Vascula r Laboratory [facility] Lower Extremity Arterial Duplex for Pseudoaneurysm Unilateral - Right Date of service/time: 05/07/2022 12:41:56 PM Name: LUCHO BROWNE Date of : 1940 Age: 81 years Gender: F Clinical Indication Hematoma following a procedure and recheck following thrombin injection. TECHNIQUE -------- An arterial duplex ultrasound examination was performed, including grayscale imaging and color Doppler and spectral Doppler examination of the below mentioned arteries. FINDINGS -------- RIGHT SIDE Common femoral artery proximal : PSV: 221 cm/s. Biphasic waveform. Profunda femoral artery proximal : PSV: 80 cm/s. Biphasic waveform. Superficial femoral artery origin : PSV: 111 cm/s. Biphasic waveform. Common femoral vein: Doppler: normal, respirophasic flow. Femoral vein: Doppler: normal, respirophasic flow. Profunda vein: Doppler: normal, respirophasic flow. IMPRESSION RIGHT SIDE Negative for pseudoaneurysm. Common femoral artery patent at proximal . Profunda femoral artery patent at proximal . Superficial femoral artery patent at proximal . Hematoma noted at the level of common femoral artery at proximal. Chamber 1 measures 2.5 cm x 3.9 cm No evicence of flow in the pseudo aneurysm status post injection. Technologist: Floresita Harper Ordering physician: JEROME HANNA Interpreting physician: Jerome Hanna MD Final CC [facility] Image : [id number] SUID See Link below for Image Normal [facility] VDUGRS Non-Invasive Vascula r Laboratory [facility] Lower Extremity Arterial Duplex for Pseudoaneurysm Unilateral - Right Date of service/time: 05/07/2022 9:23:48 AM Name: LUCHO BROWNE Date of : 1940 Age: 81 years Gender: F Clinical Indication Recheck following thrombin injection. 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 Previous study: 05/06/2022. TECHNIQUE -------- An arterial duplex ultrasound examination was performed, including grayscale imaging and color Doppler and spectral Doppler examination of the below mentioned arteries. FINDINGS -------- RIGHT SIDE Common femoral artery proximal : PSV: 142 cm/s. EDV: 0 cm/s. Biphasic waveform. Profunda femoral artery proximal : PSV: 150 cm/s. EDV: 0 cm/s. Biphasic waveform. Superficial femoral artery proximal : PSV: 140 cm/s. EDV: 0 cm/s. Biphasic waveform. Common femoral vein: Doppler: normal, respirophasic flow. Femoral vein: Doppler: normal, respirophasic flow. Profunda vein: Doppler: normal, respirophasic flow. IMPRESSION RIGHT SIDE Common femoral artery, Profunda femoral artery and Superficial femoral artery patent at proximal . Pseudoaneurysm arising from common femoral artery at proximal. Chamber 1 measures 1.4 cm x 1.5 cm Pseudoaneurysm tract length measures 1.4 cm. Pseudoaneurysm tract width measures 0.4 cm. Original sac measures 2.2 x 3.4 cm. Active portion measures 1.4 x 1.5 cm. Technologist: Floresita Harper Ordering physician: JEROME HANNA Interpreting physician: Jerome Hanna MD Final CC [facility] Image : [id number] SUID See Link below for Image Normal [facility] Basic metabolic 2000 panelon 05-06-2022 Anion gap [Moles/Vol] 5 mmol/L Normal 5-16 [facility] Comment on above: Order Comment: Speci men Type: BLOOD SPECIMEN Ordering Facility: [facility] Address: [address] [place] [address] Performed By: #### 2 4321-2 #### [facility] CLIA [id number] [address] [place] [address] [place] Calcium [Mass/Vol] 8.3 mg/dL Low 8.5-10.5 [facility] Comment on above: Order Comment: Speci men Type: BLOOD SPECIMEN Ordering Facility: [facility] Address: [address] [place] [address] Performed By: #### 2 4321-2 #### [facility] CLIA [id number] [address] [place] [address] [place] Chloride [Moles/Vol] 110 mmol/L High 98-107 [facility] Comment on above: Order Comment: Speci men Type: BLOOD SPECIMEN Ordering Facility: [facility] Address: [address] Performed By: #### 2 4321-2 #### [facility] CLIA [id number] [address] [place] [address] [place] CO2 [Moles/Vol] 24 mmol/L Normal 21-32 [facility] Comment on above: Order Comment: Speci men Type: BLOOD SPECIMEN Ordering Facility: [facility] Address: [address] [place] [address] Performed By: #### 2 4321-2 #### [facility] CLIA [id number] [address] [place] [address] [place] Creatinine [Mass/Vol] 1.55 mg/dL High 0.51-0.95 [facility] Comment on above: Order Comment: Ulises heredia Type: BLOOD SPECIMEN Ordering Facility: [facility] Address: [address] [place] [address] Result Comment: Toña ents receiving either N-Acetylcysteine (NAC) or Metamizole prior to venipuncture, may have falsely depressed results. Performed By: #### 2 4321-2 #### [facility] CLIA [id number] [address] [place] [address] [place] ESTIMATED GLOMERULAR FILTRATION RATE 34 mL/min/1.73m??? Low >=60 [facility] Comment on above: Order Comment: Ulises heredia Type: BLOOD SPECIMEN Ordering Facility: [facility] Address: [address] [place] [address] Result Comment: Janice mated Glomerular Filtration Rate (eGFR) is calculated using the 2020 CKD-EPI creatinine equation. This equation utilizes serum creatinine, sex, and age as parameters. The creatinine assay has traceable calibration to isotope dilution-mass spectrometry. Refer to KDIGO guidelines for clinical interpretation. In patients with unstable renal function, e.g. those with acute kidney injury, the eGFR may not accurately reflect actual GFR. Performed By: #### 2 4321-2 #### [facility] CLIA [id number] [address] [place] [address] [place] Glucose [Mass/Vol] 124 mg/dL High 70-100 [facility] Comment on above: Order Comment: Keshai giovanna Type: BLOOD SPECIMEN Ordering Facility: [facility] Address: [address] [place] [address] Result Comment: The [place] [employer] (ADA) provides guidance for cutoff values for fasting glucose and random glucose. The ADA defines fasting as no caloric intake for at least 8 hours. Fasting plasma glucose results between 100 to 125 mg/dL indicate increased risk for diabetes (prediabetes). Fasting plasma glucose results greater than or equal to 126 mg/dL meet the criteria for diagnosis of diabetes. In the absence of unequivocal hyperglycemia, results should be confirmed by repeat testing. In a patient with classic symptoms of hyperglycemia or hyperglycemic crisis, random plasma glucose results greater than or equal to 200 mg/dL meet the criteria for diagnosis of diabetes. Reference: Standards of Medical Care in Diabetes 2016, [place] [employer]. Diabetes Care. 2016.39(Suppl 1). Results may be falsely elevated after the administration of Sulfapyridine. Results may be falsely depressed after the administration of Sulfasalazine. Performed By: #### 2 4321-2 #### [facility] CLIA [id number] [address] [place] [address] [place] Potassium [Moles/Vol] 4.7 mmol/L Normal 3.5-5.1 [facility] Comment on above: Order Comment: Ulises heredia Type: BLOOD SPECIMEN Ordering Facility: [facility] Address: [address] [place] [address] Performed By: #### 2 4321-2 #### [facility] CLIA [id number] [address] [place] [address] [place] Sodium [Moles/Vol] 139 mmol/L Normal 136-145 [facility] Comment on above: Order Comment: Ulises heredia Type: BLOOD SPECIMEN Ordering Facility: [facility] Address: [address] [place] [address] Performed By: #### 2 4321-2 #### [facility] CLIA [id number] [address] [place] [address] [place] Urea nitrogen [Mass/Vol] 54 mg/dL High 7-26 [facility] Comment on above: Order Comment: Ulises heredia Type: BLOOD SPECIMEN Ordering Facility: [facility] Address: [address] [place] [address] Performed By: #### 2 4321-2 #### [facility] CLIA [id number] [address] [place] [address] [place] CBC W Auto Differential pane l (Bld)on 05-06-2022 Basophils (Bld) [#/Vol] 10*3/uL Normal <0.11 [facility] Comment on above: Order Comment: Speci men Type: BLOOD SPECIMEN Ordering Facility: [facility] Address: [address] [place] [address] Performed By: #### 2 4321-2 #### [facility] CLIA [id number] [address] [place], [place] [address] [place] Basophils/100 WBC (Bld) 0.1 % Normal [facility] Comment on above: Order Comment: Speci men Type: BLOOD SPECIMEN Ordering Facility: [facility] Address: [address] [place] [address] Performed By: #### 2 4321-2 #### [facility] CLIA [id number] [address] [place] [address] [place] Differential cell count method Nom (Bld) Auto Normal [facility] Comment on above: Order Comment: Speci men Type: BLOOD SPECIMEN Ordering Facility: [facility] Address: [address] [place] [address] Performed By: #### 2 4321-2 #### [facility] CLIA [id number] [address] [place] [address] [place] Eosinophils (Bld) [#/Vol] 10*3/uL Normal <0.46 [facility] Comment on above: Order Comment: Speci men Type: BLOOD SPECIMEN Ordering Facility: [facility] Address: [address] [place] [address] Performed By: #### 2 4321-2 #### [facility] CLIA [id number] [address] [place] [address] [place] Eosinophils/100 WBC (Bld) 0.1 % Normal [facility] Comment on above: Order Comment: Speci men Type: BLOOD SPECIMEN Ordering Facility: [facility] Address: [address] [place] [address] Performed By: #### 2 4321-2 #### [facility] CLIA [id number] [place] Erythrocyte distribution width (RBC) [Ratio] 13.7 % Normal 11.5-15.0 [facility] Comment on above: Order Comment: Speci men Type: BLOOD SPECIMEN Ordering Facility: [facility] Address: [address] [place] [address] Performed By: #### 2 4321-2 #### [facility] CLIA [id number] [address] [place] [address] [place] Hematocrit (Bld) [Volume fraction] 21.3 % Low 36.0-46.0 [facility] Comment on above: Order Comment: Speci men Type: BLOOD SPECIMEN Ordering Facility: [facility] Address: [address] [place] [address] Performed By: #### 2 4321-2 #### [facility] CLIA [id number] [address] [place] [address] [place] Hemoglobin (Bld) [Mass/Vol] 7.1 g/dL Low 11.5-15.5 [facility] Comment on above: Order Comment: Speci men Type: BLOOD SPECIMEN Ordering Facility: [facility] Address: [address] [place] [address] Performed By: #### 2 4321-2 #### [facility] CLIA [id number] [address] [place] [address] [place] IMMATURE GRAN % 0.3 % Normal [facility] Comment on above: Order Comment: Speci men Type: BLOOD SPECIMEN Ordering Facility: [facility] Address: [address] [place] [address] Performed By: #### 2 4321-2 #### [facility] CLIA [id number] [address] [place] [address] [place] IMMATURE GRAN ABS <0.03 Normal <0.10 [facility] Comment on above: Order Comment: Speci men Type: BLOOD SPECIMEN Ordering Facility: [facility] Address: [address] [place] [address] Performed By: #### 2 4321-2 #### [facility] CLIA [id number] [address] [place] [address] [place] Lymphocytes (Bld) [#/Vol] 1.08 10*3/uL Normal 1.00-4.00 [facility] Comment on above: Order Comment: Speci men Type: BLOOD SPECIMEN Ordering Facility: [facility] Address: [address] [place] [address] Performed By: #### 2 4321-2 #### [facility] CLIA [id number] [address] [place] [address] [place] Lymphocytes/100 WBC (Bld) 13.8 % Normal [facility] Comment on above: Order Comment: Speci men Type: BLOOD SPECIMEN Ordering Facility: [facility] Address: [address] [place] [address] Performed By: #### 2 4321-2 #### [facility] CLIA [id number] [address] [place] [address] [place] MCH (RBC) [Entitic mass] 30.1 pg Normal 26.0-34.0 [facility] Comment on above: Order Comment: Speci men Type: BLOOD SPECIMEN Ordering Facility: [facility] Address: [address] [place] [address] Performed By: #### 2 4321-2 #### [facility] CLIA [id number] [address] [place] [address] [place] MCHC (RBC) [Mass/Vol] 33.3 g/dL Normal 30.5-36.0 [facility] Comment on above: Order Comment: Speci men Type: BLOOD SPECIMEN Ordering Facility: [facility] Address: [address] [place] [address] Performed By: #### 2 4321-2 #### [facility] CLIA [id number] [address] [place] [address] [place] MCV (RBC) [Entitic vol] 90.3 fL Normal 80.0-100.0 M [facility] Comment on above: Order Comment: Speci men Type: BLOOD SPECIMEN Ordering Facility: [facility] Address: [address] [place] [address] Performed By: #### 2 4321-2 #### [facility] CLIA [id number] [address] [place] [address] [place] Monocytes (Bld) [#/Vol] 0.63 10*3/uL Normal <0.87 [facility] Comment on above: Order Comment: Speci men Type: BLOOD SPECIMEN Ordering Facility: [facility] Address: [address] [place] [address] Performed By: #### 2 4321-2 #### [facility] CLIA [id number] [address] [place] [address] [place] Monocytes/100 WBC (Bld) 8.0 % Normal [facility] Comment on above: Order Comment: Speci men Type: BLOOD SPECIMEN Ordering Facility: [facility] Address: [address] [place] [address] Performed By: #### 2 4321-2 #### [facility] CLIA [id number] [address] [place] [address] [place] Neutrophils (Bld) [#/Vol] 6.09 10*3/uL Normal 1.45-7.50 [facility] Comment on above: Order Comment: Speci men Type: BLOOD SPECIMEN Ordering Facility: [facility] Address: [address] [place], [place] [address] Performed By: #### 2 4321-2 #### [facility] CLIA [id number] [address] [place] [address] [place] Neutrophils/100 WBC (Bld) 77.7 % Normal [facility] Comment on above: Order Comment: Speci men Type: BLOOD SPECIMEN Ordering Facility: [facility] Address: [address] [place] [address] Performed By: #### 2 4321-2 #### [facility] CLIA [id number] [address] [place], [place] [address] [place] Nucleated RBC (Bld) [#/Vol] 10*3/uL Normal <0.01 [facility] Comment on above: Order Comment: Speci men Type: BLOOD SPECIMEN Ordering Facility: [facility] Address: [address] [place] [address] Performed By: #### 2 4321-2 #### [facility] CLIA [id number] [address] [place] [address] [place] Nucleated RBC/100 WBC (Bld) [Ratio] 0.0 /[address] [facility] Comment on above: Order Comment: Speci men Type: BLOOD SPECIMEN Ordering Facility: [facility] Address: [address] [place] [address] Performed By: #### 2 4321-2 #### [facility] CLIA [id number] [address] [place] [address] [place] Platelet mean volume (Bld) [Entitic vol] 12.6 fL Normal 9.0-12.7 [facility] Comment on above: Order Comment: Speci men Type: BLOOD SPECIMEN Ordering Facility: [facility] Address: [address] [place] [address] Performed By: #### 2 4321-2 #### [facility] CLIA [id number] [address] [place] [address] [place] Platelets (Bld) [#/Vol] 68 10*3/uL Low 150-400 M [facility] Comment on above: Order Comment: Speci men Type: BLOOD SPECIMEN Ordering Facility: [facility] Address: [address] [place] [address] Result Comment: No c lot detected Performed By: #### 2 4321-2 #### [facility] CLIA [id number] [address] [place] [address] [place] RBC (Bld) [#/Vol] 2.36 10*6/uL Low 3.90-5.20 [facility] Comment on above: Order Comment: Speci men Type: BLOOD SPECIMEN Ordering Facility: [facility] Address: [address] [place] [address] Performed By: #### 2 4321-2 #### [facility] CLIA [id number] [address] [place] [address] [place] WBC (Bld) [#/Vol] 7.84 10*3/uL Normal 3.70-11.00 [facility] Comment on above: Order Comment: Speci men Type: BLOOD SPECIMEN Ordering Facility: [facility] Address: [address] [place] [address] Performed By: #### 2 4321-2 #### [facility] CLIA [id number] [address] [place] [address] [place] Basophils (Bld) [#/Vol] 10*3/uL Normal <0.11 [facility] Comment on above: Order Comment: Speci men Type: BLOOD SPECIMEN Ordering Facility: [facility] Address: [address] [place] [address] Performed By: #### 2 4321-2 #### [facility] CLIA [id number] [address] [place] [address] [place] Basophils/100 WBC (Bld) 0.3 % Normal [facility] Comment on above: Order Comment: Speci men Type: BLOOD SPECIMEN Ordering Facility: [facility] Address: [address] [place] [address] Performed By: #### 2 4321-2 #### [facility] CLIA [id number] [address] [place] [address] [place] Differential cell count method Nom (Bld) Auto Normal [facility] Comment on above: Order Comment: Speci men Type: BLOOD SPECIMEN Ordering Facility: [facility] Address: [address] [place] [address] Performed By: #### 2 4321-2 #### [facility] CLIA [id number] [address] [place] [address] [place] Eosinophils (Bld) [#/Vol] 10*3/uL Normal <0.46 [facility] Comment on above: Order Comment: Speci men Type: BLOOD SPECIMEN Ordering Facility: [facility] Address: [address] [place] [address] Performed By: #### 2 4321-2 #### [facility] CLIA [id number] [address] [place] [address] [place] Eosinophils/100 WBC (Bld) 0.0 % Normal [facility] Comment on above: Order Comment: Speci men Type: BLOOD SPECIMEN Ordering Facility: [facility] Address: [address] [place] [address] Performed By: #### 2 4321-2 #### [facility] CLIA [id number] [address] [place] [address] [place] Erythrocyte distribution width (RBC) [Ratio] 13.7 % Normal 11.5-15.0 [facility] Comment on above: Order Comment: Speci men Type: BLOOD SPECIMEN Ordering Facility: [facility] Address: [address] [place] [address] Performed By: #### 2 4321-2 #### [facility] CLIA [id number] [address] [place] [address] [place] Hematocrit (Bld) [Volume fraction] 21.9 % Low 36.0-46.0 [facility] Comment on above: Order Comment: Speci men Type: BLOOD SPECIMEN Ordering Facility: [facility] Address: [address] [place], [place] [address] Performed By: #### 2 4321-2 #### [facility] CLIA [id number] [address] [place] [address] [place] Hemoglobin (Bld) [Mass/Vol] 7.5 g/dL Low 11.5-15.5 [facility] Comment on above: Order Comment: Speci men Type: BLOOD SPECIMEN Ordering Facility: [facility] Address: [address] [place] [address] Performed By: #### 2 4321-2 #### [facility] CLIA [id number] [address] [place] [address] [place] IMMATURE GRAN % 0.5 % Normal [facility] Comment on above: Order Comment: Speci men Type: BLOOD SPECIMEN Ordering Facility: [facility] Address: [address] [place] [address] Performed By: #### 2 4321-2 #### [facility] CLIA [id number] [address] [place] [address] [place] IMMATURE GRAN ABS 0.04 k/uL Normal <0.10 [facility] Comment on above: Order Comment: Speci men Type: BLOOD SPECIMEN Ordering Facility: [facility] Address: [address] [place] [address] Performed By: #### 2 4321-2 #### [facility] CLIA [id number] [address] [place] [address] [place] Lymphocytes (Bld) [#/Vol] 0.98 10*3/uL Low 1.00-4.00 [facility] Comment on above: Order Comment: Speci men Type: BLOOD SPECIMEN Ordering Facility: [facility] Address: [address] [place] [address] Performed By: #### 2 4321-2 #### [facility] CLIA [id number] [address] [place] [address] [place] Lymphocytes/100 WBC (Bld) 12.7 % Normal [facility] Comment on above: Order Comment: Speci men Type: BLOOD SPECIMEN Ordering Facility: [facility] Address: [address] [place] [address] Performed By: #### 2 4321-2 #### [facility] CLIA [id number] [address] [place] [address] [place] MCH (RBC) [Entitic mass] 29.8 pg Normal 26.0-34.0 [facility] Comment on above: Order Comment: Speci men Type: BLOOD SPECIMEN Ordering Facility: [facility] Address: [address] [place], [place] [address] Performed By: #### 2 4321-2 #### [facility] CLIA [id number] [address] [place] [address] [place] MCHC (RBC) [Mass/Vol] 34.2 g/dL Normal 30.5-36.0 [facility] Comment on above: Order Comment: Speci men Type: BLOOD SPECIMEN Ordering Facility: [facility] Address: [address] [place] [address] Performed By: #### 2 4321-2 #### [facility] CLIA [id number] [address] [place] [address] [place] MCV (RBC) [Entitic vol] 86.9 fL Normal 80.0-100.0 [facility] Comment on above: Order Comment: Speci men Type: BLOOD SPECIMEN Ordering Facility: [facility] Address: [address] [place] [address] Performed By: #### 2 4321-2 #### [facility] CLIA [id number] [address] [place] [address] [place] Monocytes (Bld) [#/Vol] 0.48 10*3/uL Normal <0.87 [facility] Comment on above: Order Comment: Speci men Type: BLOOD SPECIMEN Ordering Facility: [facility] Address: [address] [place] [address] Performed By: #### 2 4321-2 #### [facility] CLIA [id number] [address] [place] [address] [place] Monocytes/100 WBC (Bld) 6.2 % Normal [facility] Comment on above: Order Comment: Speci men Type: BLOOD SPECIMEN Ordering Facility: [facility] Address: [address] [place], [place] [address] Performed By: #### 2 4321-2 #### [facility] CLIA [id number] [address] [place] [address] [place] Neutrophils (Bld) [#/Vol] 6.21 10*3/uL Normal 1.45-7.50 [facility] Comment on above: Order Comment: Speci men Type: BLOOD SPECIMEN Ordering Facility: [facility] Address: [address] [place], [place] [address] Performed By: #### 2 4321-2 #### [facility] CLIA [id number] [address] [place] [address] [place] Neutrophils/100 WBC (Bld) 80.3 % Normal [facility] Comment on above: Order Comment: Speci men Type: BLOOD SPECIMEN Ordering Facility: [facility] Address: [address] [place] [address] Performed By: #### 2 4321-2 #### [facility] CLIA [id number] [address] [place] [address] [place] Nucleated RBC (Bld) [#/Vol] 10*3/uL Normal <0.01 [facility] Comment on above: Order Comment: Speci men Type: BLOOD SPECIMEN Ordering Facility: [facility] Address: [address] [place], [place] [address] Performed By: #### 2 4321-2 #### [facility] CLIA [id number] [address] [place] [address] [place] Nucleated RBC/100 WBC (Bld) [Ratio] 0.0 /[address] [facility] Comment on above: Order Comment: Speci men Type: BLOOD SPECIMEN Ordering Facility: [facility] Address: [address] [place], [place] [address] Performed By: #### 2 4321-2 #### [facility] CLIA [id number] [address] [place] [address] [place] Platelet mean volume (Bld) [Entitic vol] 12.3 fL Normal 9.0-12.7 [facility] Comment on above: Order Comment: Speci men Type: BLOOD SPECIMEN Ordering Facility: [facility] Address: [address] [place], [place] [address] Performed By: #### 2 4321-2 #### [facility] CLIA [id number] [address] [place] [address] [place] [facility] [place] Platelets (Bld) [#/Vol] 73 10*3/uL Low 150-400 M [facility] Comment on above: Order Comment: Speci men Type: BLOOD SPECIMEN Ordering Facility: [facility] Address: [address] [place] [address] Result Comment: No c lot detected Performed By: #### 2 4321-2 #### [facility] CLIA [id number] [address] [place] [address] [place] RBC (Bld) [#/Vol] 2.52 10*6/uL Low 3.90-5.20 [facility] Comment on above: Order Comment: Speci men Type: BLOOD SPECIMEN Ordering Facility: [facility] Address: [address] [place] [address] Performed By: #### 2 4321-2 #### [facility] CLIA [id number] [address] [place] [address] [place] WBC (Bld) [#/Vol] 7.73 10*3/uL Normal 3.70-11.00 [facility] Comment on above: Order Comment: Speci men Type: BLOOD SPECIMEN Ordering Facility: [facility] Address: [address] [place] [address] Performed By: #### 2 4321-2 #### [facility] CLIA [id number] [address] [place] [address] OF [facility] CONFIRM BLOOD TYPEon [address] [facility] Comment on above: Order Comment: Speci men Type: BLOOD SPECIMEN Ordering Facility: [facility] Address: [address] [place] [address] Performed By: #### 2 4321-2 #### [facility] CLIA [id number] [address] [place] [address] [place] Rh Nom (Bld) Positive Normal [facility] Comment on above: Order Comment: Speci men Type: BLOOD SPECIMEN Ordering Facility: [facility] Address: [address] [place] [address] Performed By: #### 2 4321-2 #### [facility] GILLIA [id number] [address] [place] [address] [place] CONSULTon 05-06-2022 CONSULT HNO ID: [id number] Author: Jerome Hanna MD Service: Vascular Surgery Author Type: Physician Type: Consults Filed: 05/06/2022 11:52 AM Note Text: VASCULAR SURGERY CONSULT SERVICE DATE: 05/06/2022 SERVICE TIME: 11:48 AM Subjective CHIEF COMPLAINT: Right groin pain HPI: Lucho Browne is a 81 year old White female is being seen for right femoral pseudoaneurysm. Patient underwent right renal artery stenting on 05/04/2022. She was discharged home without issue. The following morning, her daughter found her slumped over in the bathroom. She was very confused. She presented to an outside emergency department and underwent a stroke work-up. She did have a drop in her hemoglobin. I discussed with her PCP who had admitted her at that facility, and I explained my concern for issues with her access site. Apparently, at the outside facility, she underwent a noncontrast CT abdomen and pelvis that showed a right groin hematoma. She was transferred to our facility for definitive care. This morning, she underwent right groin arterial duplex that showed a pseudoaneurysm. Her only complaint is right back pain. She has been hemodynamically stable. Her hemoglobin appears to be stable as well. PAST MEDICAL HISTORY: PAST MEDICAL HISTORY Diagnosis Date - Acute renal failure superimposed on stage 3b chronic kidney disease (HCC) - Diabetes (HCC) type 2 - Edema - History of echocardiogram 11/2021 ef60, severe lvh - Hypertension - Obstructive sleep apnea treated with bilevel positive airway pressure (BiPAP) PAST SURGICAL HISTORY: PAST SURGICAL HISTORY Procedure Laterality Date - HYSTERECTOMY N/A 1989 - REMOVAL GALLBLADDER N/A 2011 FAMILY HISTORY: No family history on file. SOCIAL HISTORY: Social History Tobacco Use - Smoking status: Never Smoker - Smokeless tobacco: Never Used Substance Use Topics - Alcohol use: Not Currently - Drug use: Not Currently MEDICATIONS: Prior to Admission Medications: aspirin 325 mg tablet Take 325 mg by mouth once daily. carvedilol (COREG) 12.5 mg tablet Take 12.5 mg by mouth twice daily with meals. clopidogrel (PLAVIX) 75 mg tablet Take 1 tablet by mouth once daily. spironolactone (ALDACTONE) 100 mg tablet Take 1 tablet by mouth once daily. Cholecalciferol, Vitamin D3, (VITAMIN D) 25 mcg (1,000 unit) cap Take 1,000 Units by mouth once daily. losartan (COZAAR) 50 mg tablet Take 1 tablet by mouth twice daily. torsemide (DEMADEX) 20 mg tablet Take 2 tablets by mouth once daily. busPIRone (BUSPAR) 10 mg tablet Take 10 mg by mouth twice daily. doxazosin (CARDURA) 4 mg tablet Take 1 tablet by mouth daily at bedtime. escitalopram oxalate (LEXAPRO) 20 mg tablet Take 20 mg by mouth once daily. ferrous sulfate 325 mg (65 mg iron) tablet Take 325 mg by mouth daily with breakfast. rosuvastatin (CRESTOR) 10 mg tablet Take 10 mg by mouth once daily. chlorthalidone (HYGROTON) 25 mg tablet Take 25 mg by mouth every 48 hours. VELTASSA 8.4 gram pwpk MIX 1 PACKET IN WATER. DRINK BY MOUTH ONCE DAILY sodium bicarbonate 650 mg tablet Current Facility-Administered Medications Medication Dose Route Frequency - thrombin 5,000 Units topical liquid 5,000 Units TOPICAL ONCE - lidocaine 10 mg/mL (1 %) 100 mg injection (XYLOCAINE) 10 mL INTRADERMAL ONCE ALLERGIES: Patient has no known allergies. COMPLETE REVIEW OF SYSTEMS: A 14 point review of systems was discussed and was negative besides what is mentioned in the above HPI Objective PHYSICAL EXAM: Patient Vitals for the past 24 hrs: BP Temp Temp src Pulse Resp SpO2 Height Weight 05/06/22 0706 153/52 37.7 ?C (99.9 ?F) Oral 71 20 95 % ? 103.4 kg (228 lb) 05/06/22 0045 ? 160 cm (5' 3) 103 kg (227 lb) 05/06/22 0041 ? 103 kg (227 lb) 05/05/22 2250 (!) 140/48 37.1 ?C (98.7 ?F) Oral 70 18 96 % 160 cm (5' 3) 104.4 kg (230 lb 1.6 oz) General: Patient is alert and oriented x3 and is in no acute respiratory distress Neck: Negative hepatojugular reflux or jugular venous distention, negative carotid bruit. Lungs: Clear to auscultation, no wheezing, rales, or rhonchi. Cardiac: Regular rhythm and rate, S1-S2 within normal limits, no murmurs, gallops were appreciated, no rubs. Abdomen: Soft, nontender, nondistended, bowel sounds are positive. Mild hematoma to right groin; morbidly obese Extremities: No edema, cyanosis, or clubbing. Skin: No rashes or breakdown. Lymphatic: Negative cervical, supra-clavicular lymphadenopathy. Neurologic: Cranial nerves from II-XII intact grossly. Psychiatry: Normal affect. DATA: LABS: Recent Labs 05/06/22 0647 05/04/22 0734 WBC 7.73 4.89 HB 7.5* 9.0* HCT 21.9* 27.6* PLT 73* 80* Recent Labs 05/06/22 0647 05/04/22 0734 NA 139 143 K 4.7 5.6* CHLOR 110* 113* CO2 24 27 BUN 54* 76* CREAT 1.55* 1.57* GLUC 124* 83 DATA: Imaging: Right groin arterial duplex shows a right femoral pseudoaneurysm (more content not included)... Normal [facility] HISTORY PHYSICALon HISTORY PHYSICAL HNO ID: [id number] Author: Dirk Charles MD Service: Hospital Medicine Author Type: Physician Type: HANDP Filed: 05/06/2022 1:00 AM Note Text: HISTORY AND PHYSICAL EXAMINATION SERVICE DATE: 05/06/2022 SERVICE TIME: 00 48 PRIMARY CARE PHYSICIAN: Avelino Deleon MD Subjective CHIEF COMPLAINT: This is a 81-year-old female who yesterday 05/04/2022 underwent a procedure for right renal arterial stenosis with stent placement. Dr. He Koehler performed this procedure, however on the day of admission today, began having right flank pain. Her daughter recounts, that she has had increased confusion weakness and was found on the floor. She then presented to [place] via ambulance, CT scan of the head without contrast was negative, however CT of the abdomen showed a large peritoneal hematoma extending to the right groin. Her hemoglobin normally runs around 10.0, at the hospital emergency room was always in the range of 7.7. She did receive 2 units of packed red blood cells. She currently is being admitted for further evaluation and observation. HPI: This is a 81 year old female who presents with right flank pain, and right inguinal pain. She also has had some confusion. FUNCTIONAL STATUS: Partially dependent PAST MEDICAL HISTORY Diagnosis Date - Acute renal failure superimposed on stage 3b chronic kidney disease (HCC) - Diabetes (HCC) type 2 - Edema - History of echocardiogram 11/2021 ef60, severe lvh - Hypertension - Obstructive sleep apnea treated with bilevel positive airway pressure (BiPAP) PAST SURGICAL HISTORY Procedure Laterality Date - HYSTERECTOMY N/A 1989 - REMOVAL GALLBLADDER N/A 2011 No family history on file. Social History Tobacco Use - Smoking status: Never Smoker - Smokeless tobacco: Never Used Substance Use Topics - Alcohol use: Not Currently - Drug use: Not Currently aspirin 325 mg tablet, Take 325 mg by mouth once daily., Disp: , Rfl: , 05/05/2022 at Unknown time carvedilol (COREG) 12.5 mg tablet, Take 12.5 mg by mouth twice daily with meals., Disp: , Rfl: , 05/05/2022 at Unknown time clopidogrel (PLAVIX) 75 mg tablet, Take 1 tablet by mouth once daily., Disp: 90 tablet, Rfl: 0, 05/05/2022 at Unknown time spironolactone (ALDACTONE) 100 mg tablet, Take 1 tablet by mouth once daily. (Patient taking differently: Take 50 mg by mouth every other day. ), Disp: 90 tablet, Rfl: 3, 05/05/2022 at Unknown time Cholecalciferol, Vitamin D3, (VITAMIN D) 25 mcg (1,000 unit) cap, Take 1,000 Units by mouth once daily., Disp: , Rfl: , 05/05/2022 at Unknown time losartan (COZAAR) 50 mg tablet, Take 1 tablet by mouth twice daily., Disp: 60 tablet, Rfl: 1, 05/05/2022 at Unknown time torsemide (DEMADEX) 20 mg tablet, Take 2 tablets by mouth once daily., Disp: 60 tablet, Rfl: 1, 05/05/2022 at Unknown time busPIRone (BUSPAR) 10 mg tablet, Take 10 mg by mouth twice daily. , Disp: , Rfl: , 05/05/2022 at Unknown time doxazosin (CARDURA) 4 mg tablet, Take 1 tablet by mouth daily at bedtime. (Patient taking differently: Take 4 mg by mouth twice daily. ), Disp: 90 tablet, Rfl: 3, 05/05/2022 at Unknown time escitalopram oxalate (LEXAPRO) 20 mg tablet, Take 20 mg by mouth once daily. , Disp: , Rfl: , 05/05/2022 at Unknown time ferrous sulfate 325 mg (65 mg iron) tablet, Take 325 mg by mouth daily with breakfast., Disp: , Rfl: , 05/05/2022 at Unknown time rosuvastatin (CRESTOR) 10 mg tablet, Take 10 mg by mouth once daily., Disp: , Rfl: , 05/05/2022 at Unknown time ALLERGIES No Known Allergies COMPLETE REVIEW OF SYSTEMS: PAIN ASSESSMENT: Negative for pain, history of chronic pain, or current treatment for a chronic pain condition. GENERAL: No weight loss, malaise or fevers HEENT: Negative for frequent or significant headaches, No changes in hearing or vision, no nose bleeds or other nasal problems NECK: Negative for lumps, goiter, pain and significant neck swelling RESPIRATORY: Negative for cough, hemoptysis, wheezing, COPD, dyspnea or shortness of breath CARDIOVASCULAR: Negative for chest pain, leg swelling, hypertension, CHF or palpitations GI: No nausea, vomiting, or diarrhea : No history of dysuria, frequency or incontinence MEDICAL MANAGEMENT SPECIALIST: Negative for abnormal vaginal bleeding, abnormal vaginal discharge MUSCULOSKELETAL: Negative for joint pain or swelling, back pain or muscle pain SKIN: Negative for lesions, rash, and itching PSYCH: Negative for sleep disturbance, mood disorder and recent psychosocial stressors HEMATOLOGY/LYMPHOLOGY: Negative for prolonged bleeding, bruising easily or swollen nodes ENDOCRINE: Negative for cold or heat intolerance, polyuria, polydipsia and goiter NEURO: No history of headaches, syncope, paralysis, seizures or tremors Objective PHYSICAL EXAM: Physical Exam Performed: GENERAL: Alert, no distress, cooperative SKIN: Skin color, texture, turgor normal. No rashes or lesions. HEAD/SINUSES: No significant findin (more content not included)... [facility] OPERATIVE NOon 05-06-2022 OPERATIVE NO HNO ID: [id number] Author: Jerome Hanna MD Service: Vascular Surgery Author Type: Physician Type: Operative Report Filed: 05/06/2022 11:56 AM Note Text: OPERATIVE/PROCEDURE REPORT LOG ID: * No surgery found * SURGERY/PROCEDURE DATE: 05/06/2022 INCISION/PROCEDURE START TIME: 11 AM INCISION CLOSE/PROCEDURE END TIME: 1130 SURGEON(S)/PROCEDURALIS T(S) AND JAVA WEB SERVICES DEVELOPER(S): Dr. Hanna * Surgery not found * SURGERY/PROCEDURE(S): Ultrasound-guided thrombin injection of right femoral pseudoaneurysm ANESTHESIA: Local SURGERY/PROCEDURE DETAILS: After obtaining informed consent, the right groin was prepped and draped in a sterile fashion. With the assistance of the metal technician, the pseudoaneurysm was identified with duplex ultrasound. Skin overlying the area was infiltrated with local anesthetic. Using an echogenic needle, the pseudoaneurysm was cannulated under ultrasound guidance. Under color-flow duplex, a small amount of thrombin was injected directly into the pseudoaneurysm sac, showing successful thrombosis. Upon further evaluation, a small segment of pseudoaneurysm appeared to be patent at the most proximal portion of the pseudoaneurysm sac. It was very difficult due to her large size and depth of the pseudoaneurysm sac to get the needle exactly into the pseudoaneurysm that remained patent. The vast majority of the pseudoaneurysm is now thrombosed. Patient will be transferred back to her room with sandbag in place and bedrest orders until the morning. I will repeat right groin arterial duplex tomorrow morning. The femoral vessels remained widely patent. Pre and post procedure vascular exam of the affected extremity remained stable. Pre and post procedure ABIs were also stable. PRE-OP/PRE-PROCEDURE DIAGNOSIS: Right femoral pseudoaneurysm POST-OP/POST-PROCEDURE DIAGNOSIS: Same as Preop ESTIMATED BLOOD LOSS: Minimal SPECIMENS: None IMPLANTABLE DEVICES: None DRAINS: None COMPLICATIONS: None PARTICIPATION IN SURGERY/PROCEDURE: I/primary surgeon/proceduralist performed the entire procedure. SIGNATURE: Jerome Hanna MD PATIENT NAME: Lucho Browne DATE: May 06, 2022 TIME: 11:53 AM [facility] TYPE + SCREENon 05-06-[address] [facility] Comment on above: Order Comment: Speci men Type: BLOOD SPECIMEN Ordering Facility: [facility] Address: [address] [place] [address] Performed By: #### 2 4321-2 #### [facility] CLIA [id number] [address] [place] [address] HISTORICAL AB SCR STATUS Negative [facility] Comment on above: Order Comment: Speci men Type: BLOOD SPECIMEN Ordering Facility: [facility] Address: [address] [place] [address] Performed By: #### 2 4321-2 #### [facility] CLIA [id number] [address] [place] [address] Rh Nom (Bld) Positive [facility] Comment on above: Order Comment: Speci men Type: BLOOD SPECIMEN Ordering Facility: [facility] Address: [address] [place] [address] Performed By: #### 2 4321-2 #### [facility] CLIA [id number] [address] [place] [address] TYPE AND SCREEN EXPIRATION 05/09/2022 23:[address] [facility] Comment on above: Order Comment: Speci men Type: BLOOD SPECIMEN Ordering Facility: [facility] Address: [address] [place] [address] Performed By: #### 2 4321-2 #### [facility] CLIA [id number] [address] [place] [address] OF [facility] VDUGRSon 05-06-2022 VDUGRS Non-Invasive Vascula r Laboratory [facility] Lower Extremity Arterial Duplex for Pseudoaneurysm Unilateral - Right Date of service/time: 05/06/2022 10:24:04 AM Name: LUCHO BROWNE Date of : 1940 Age: 81 years Gender: F Clinical Indication Hematoma following a procedure. TECHNIQUE -------- An arterial duplex ultrasound examination was performed, including grayscale imaging and color Doppler and spectral Doppler examination of the below mentioned arteries. FINDINGS -------- RIGHT SIDE Common femoral artery proximal : PSV: 92 cm/s. Profunda femoral artery : PSV: 41 cm/s. Superficial femoral artery : PSV: 62 cm/s. Common femoral vein: Doppler: normal, respirophasic flow. Femoral vein: Doppler: normal, respirophasic flow. Profunda vein: Doppler: normal, respirophasic flow. IMPRESSION Difficult study secondary to patient body habitus. RIGHT SIDE Common femoral artery, Profunda femoral artery and Superficial femoral artery patent . Pseudoaneurysm arising from common femoral artery at proximal. Chamber 1 measures 6.7 cm x 4.3 cm x 2.0 cm. Pseudoaneurysm tract length measures 1.2 cm. Pseudoaneurysm tract width measures 0.3 cm. Small area measuring 1.1 x 0.7 cm still active status post injection. Recheck scheduled for next day. Difficult injection secondary to patient large body habitus. Technologist: Floresita Harper Ordering physician: JEROME HANNA Interpreting physician: Jerome Hanna MD Final (Updated) [facility] Image : [id number] SUID See Link below for Image Normal [facility] VDUGRS Non-Invasive Vascula r Laboratory [facility] Lower Extremity Arterial Duplex for Pseudoaneurysm Unilateral - Right Date of service/time: 05/06/2022 8:46:06 AM Name: LUCHO BROWNE Date of : 1940 Age: 81 years Gender: F Clinical Indication Suspected local complication of arterial access procedure. TECHNIQUE -------- An arterial duplex ultrasound examination was performed, including grayscale imaging and color Doppler and spectral Doppler examination of the below mentioned arteries. FINDINGS -------- RIGHT SIDE Common femoral artery proximal : PSV: 150 cm/s. EDV: 0 cm/s. Biphasic waveform. Superficial femoral artery proximal : PSV: 151 cm/s. EDV: 0 cm/s. Biphasic waveform. Profunda femoral artery proximal : PSV: 152 cm/s. EDV: 0 cm/s. Biphasic waveform. Common femoral vein: Doppler: normal, respirophasic flow. Femoral vein: Doppler: normal, respirophasic flow. Profunda vein: Doppler: normal, respirophasic flow. IMPRESSION RIGHT SIDE Common femoral artery patent . Superficial femoral artery patent . Profunda femoral artery patent . Pseudoaneurysm arising from common femoral artery at proximal. Chamber 1 measures 2.4 cm x 6.6 cm Pseudoaneurysm tract length measures 1.5 cm. Pseudoaneurysm tract width measures 0.2 cm. Technologist: Floresita Harper Ordering physician: JEROME HANNA Interpreting physician: Jerome Hanna MD Final (Updated) [facility] Image : [id number] SUID See Link below for Image Normal [facility] Basic metabolic 2000 panelon 05-04-2022 Anion gap [Moles/Vol] 3 mmol/L Low 5-16 [facility] Comment on above: Order Comment: Speci men Type: BLOOD SPECIMEN Ordering Facility: [facility] Address: [address] [id number] Performed By: #### 2 4321-2 #### [facility] CLIA [id number] [address] [place] [address] [place] Calcium [Mass/Vol] 9.3 mg/dL Normal 8.5-10.5 [facility] Comment on above: Order Comment: Speci men Type: BLOOD SPECIMEN Ordering Facility: [facility] Address: [address] [id number] Performed By: #### 2 4321-2 #### [facility] CLIA [id number] [address] [place] [address] [place] Chloride [Moles/Vol] 113 mmol/L High 98-107 [facility] Comment on above: Order Comment: Speci men Type: BLOOD SPECIMEN Ordering Facility: [facility] Address: [address] [place] [address] Performed By: #### 2 4321-2 #### [facility] CLIA [id number] [address] [place] [address] [place] CO2 [Moles/Vol] 27 mmol/L Normal 21-32 [facility] Comment on above: Order Comment: Speci men Type: BLOOD SPECIMEN Ordering Facility: [facility] Address: [address] [place] [address] Performed By: #### 2 4321-2 #### [facility] CLIA [id number] [address] [place] [address] [place] Creatinine [Mass/Vol] 1.57 mg/dL High 0.51-0.95 [facility] Comment on above: Order Comment: Speci men Type: BLOOD SPECIMEN Ordering Facility: [facility] Address: [address] [place] [address] Result Comment: Toña ents receiving either N-Acetylcysteine (NAC) or Metamizole prior to venipuncture, may have falsely depressed results. Performed By: #### 2 4321-2 #### [facility] CLIA [id number] [address] [place] [address] [place] ESTIMATED GLOMERULAR FILTRATION RATE 33 mL/min/1.73m??? Low >=60 [facility] Comment on above: Order Comment: Speci men Type: BLOOD SPECIMEN Ordering Facility: [facility] Address: [address] [place] [address] Result Comment: Janice mated Glomerular Filtration Rate (eGFR) is calculated using the 2020 CKD-EPI creatinine equation. This equation utilizes serum creatinine, sex, and age as parameters. The creatinine assay has traceable calibration to isotope dilution-mass spectrometry. Refer to KDIGO guidelines for clinical interpretation. In patients with unstable renal function, e.g. those with acute kidney injury, the eGFR may not accurately reflect actual GFR. Performed By: #### 2 4321-2 #### [facility] CLIA [id number] [address] [place] [address] [place] Glucose [Mass/Vol] 83 mg/dL Normal 70-100 [facility] Comment on above: Order Comment: Ulises heredia Type: BLOOD SPECIMEN Ordering Facility: [facility] Address: [address] [phone] Result Comment: The [place] Diabetes [employer] (ADA) provides guidance for cutoff values for fasting glucose and random glucose. The ADA defines fasting as no caloric intake for at least 8 hours. Fasting plasma glucose results between 100 to 125 mg/dL indicate increased risk for diabetes (prediabetes). Fasting plasma glucose results greater than or equal to 126 mg/dL meet the criteria for diagnosis of diabetes. In the absence of unequivocal hyperglycemia, results should be confirmed by repeat testing. In a patient with classic symptoms of hyperglycemia or hyperglycemic crisis, random plasma glucose results greater than or equal to 200 mg/dL meet the criteria for diagnosis of diabetes. Reference: Standards of Medical Care in Diabetes 2016, [place] [employer]. Diabetes Care. 2016.39(Suppl 1). Results may be falsely elevated after the administration of Sulfapyridine. Results may be falsely depressed after the administration of Sulfasalazine. Performed By: #### 2 4321-2 #### [facility] CLIA [id number] [address] [place] [address] [place] Potassium [Moles/Vol] 5.6 mmol/L High 3.5-5.1 [facility] Comment on above: Order Comment: Ulises heredia Type: BLOOD SPECIMEN Ordering Facility: [facility] Address: [address] [place] [address] Performed By: #### 2 4321-2 #### [facility] CLIA [id number] [address] [place] [address] [place] Sodium [Moles/Vol] 143 mmol/L Normal 136-145 [facility] Comment on above: Order Comment: Ulises heredia Type: BLOOD SPECIMEN Ordering Facility: [facility] Address: [address] [place], [place] [id number] Performed By: #### 2 4321-2 #### [facility] CLIA [id number] [address] [place] [address] [place] Urea nitrogen [Mass/Vol] 76 mg/dL High 05-30 [facility] Comment on above: Order Comment: Speci men Type: BLOOD SPECIMEN Ordering Facility: [facility] Address: [address] [place], [place] [id number] Performed By: #### 2 4321-2 #### [facility] CLIA [id number] [address] [place] [address] [place] CBC W Auto Differential pane l (Bld)on 05-04-2022 Basophils (Bld) [#/Vol] 10*3/uL Normal <0.11 [facility] Comment on above: Order Comment: Speci men Type: BLOOD SPECIMEN Ordering Facility: [facility] Address: [address] [place] [address] Performed By: #### 5 7021-8 #### [facility] CLIA [id number] [address] [place] [address] [place] Basophils/100 WBC (Bld) 0.4 % Normal [facility] Comment on above: Order Comment: Speci men Type: BLOOD SPECIMEN Ordering Facility: [facility] Address: [address] [place] [address] Performed By: #### 5 7021-8 #### [facility] CLIA [id number] [address] [place] [address] [place] Differential cell count method Nom (Bld) Auto Normal [facility] Comment on above: Order Comment: Speci men Type: BLOOD SPECIMEN Ordering Facility: [facility] Address: [address] [place], [place] [id number] Performed By: #### 5 7021-8 #### [facility] CLIA [id number] [address] [place] [address] [place] Eosinophils (Bld) [#/Vol] 0.15 10*3/uL Normal <0.46 [facility] Comment on above: Order Comment: Speci men Type: BLOOD SPECIMEN Ordering Facility: [facility] Address: [address] [place], [place] [id number] Performed By: #### 5 7021-8 #### [facility] CLIA [id number] [address] [place] [address] [place] Eosinophils/100 WBC (Bld) 3.1 % Normal [facility] Comment on above: Order Comment: Speci men Type: BLOOD SPECIMEN Ordering Facility: [facility] Address: [address] [place], [place] [id number] Performed By: #### 5 7021-8 #### [facility] CLIA [id number] [address] [place] [address] [place] Erythrocyte distribution width (RBC) [Ratio] 13.4 % Normal 11.5-15.0 [facility] Comment on above: Order Comment: Speci men Type: BLOOD SPECIMEN Ordering Facility: [facility] Address: [address] [place], [place] [id number] Performed By: #### 5 7021-8 #### [facility] CLIA [id number] [address] [place] [address] [place] Hematocrit (Bld) [Volume fraction] 27.6 % Low 36.0-46.0 [facility] Comment on above: Order Comment: Speci men Type: BLOOD SPECIMEN Ordering Facility: [facility] Address: [address] [place], [place] [id number] Performed By: #### 5 7021-8 #### [facility] CLIA [id number] [address] [place] [address] [place] Hemoglobin (Bld) [Mass/Vol] 9.0 g/dL Low 11.5-15.5 [facility] Comment on above: Order Comment: Speci men Type: BLOOD SPECIMEN Ordering Facility: [facility] Address: [address] [place], [place] [id number] Performed By: #### 5 7021-8 #### [facility] CLIA [id number] [address] [place] [address] [place] IMMATURE GRAN % 0.0 % Normal [facility] Comment on above: Order Comment: Speci men Type: BLOOD SPECIMEN Ordering Facility: [facility] Address: [address] [place] [address] Performed By: #### 5 7021-8 #### [facility] CLIA [id number] [address] [place] [address] [place] [facility] IMMATURE GRAN ABS <0.03 Normal <0.10 [facility] Comment on above: Order Comment: Speci men Type: BLOOD SPECIMEN Ordering Facility: [facility] Address: [address] [place] [address] Performed By: #### 5 7021-8 #### [facility] CLIA [id number] [address] [place] [address] [place] Lymphocytes (Bld) [#/Vol] 1.11 10*3/uL Normal 1.00-4.00 [facility] Comment on above: Order Comment: Speci men Type: BLOOD SPECIMEN Ordering Facility: [facility] Address: [address] [place] [address] Performed By: #### 5 7021-8 #### [facility] CLIA [id number] [address] [place] [address] [place] Lymphocytes/100 WBC (Bld) 22.7 % Normal [facility] Comment on above: Order Comment: Speci men Type: BLOOD SPECIMEN Ordering Facility: [facility] Address: [address] [place] [address] Performed By: #### 5 7021-8 #### [facility] CLIA [id number] [address] [place] [address] [place] MCH (RBC) [Entitic mass] 29.3 pg Normal 26.0-34.0 [facility] Comment on above: Order Comment: Speci men Type: BLOOD SPECIMEN Ordering Facility: [facility] Address: [address] [address] Performed By: #### 5 7021-8 #### [facility] CLIA [id number] [address] [place] [address] [place] MCHC (RBC) [Mass/Vol] 32.6 g/dL Normal 30.5-36.0 [facility] Comment on above: Order Comment: Speci men Type: BLOOD SPECIMEN Ordering Facility: [facility] Address: [address] [place] [address] Performed By: #### 5 7021-8 #### [facility] CLIA [id number] [address] [place] [address] [place] MCV (RBC) [Entitic vol] 89.9 fL Normal 80.0-100.0 [facility] Comment on above: Order Comment: Speci men Type: BLOOD SPECIMEN Ordering Facility: [facility] Address: [address] [place] [address] Performed By: #### 5 7021-8 #### [facility] CLIA [id number] [address] [place] [address] [place] Monocytes (Bld) [#/Vol] 0.39 10*3/uL Normal <0.87 [facility] Comment on above: Order Comment: Speci men Type: BLOOD SPECIMEN Ordering Facility: [facility] Address: [address] [place] [address] Performed By: #### 5 7021-8 #### [facility] CLIA [id number] [address] [place] [address] [place] Monocytes/100 WBC (Bld) 8.0 % Normal [facility] Comment on above: Order Comment: Speci men Type: BLOOD SPECIMEN Ordering Facility: [facility] Address: [address] [place] [address] Performed By: #### 5 7021-8 #### [facility] CLIA [id number] [address] [place] [address] [place] Neutrophils (Bld) [#/Vol] 3.22 10*3/uL Normal 1.45-7.50 [facility] Comment on above: Order Comment: Speci men Type: BLOOD SPECIMEN Ordering Facility: [facility] Address: [address] [place] [address] Performed By: #### 5 7021-8 #### [facility] CLIA [id number] [address] [place] [address] [place] Neutrophils/100 WBC (Bld) 65.8 % Normal [facility] Comment on above: Order Comment: Speci men Type: BLOOD SPECIMEN Ordering Facility: [facility] Address: [address] [place] [address] Performed By: #### 5 7021-8 #### [facility] CLIA [id number] [address] [place] [address] [place] Nucleated RBC (Bld) [#/Vol] 10*3/uL Normal <0.01 [facility] Comment on above: Order Comment: Speci men Type: BLOOD SPECIMEN Ordering Facility: [facility] Address: [address] [place], [place] [id number] Performed By: #### 5 7021-8 #### [facility] CLIA [id number] [address] [place] [address] [place] Nucleated RBC/100 WBC (Bld) [Ratio] 0.0 /[address] [facility] Comment on above: Order Comment: Speci men Type: BLOOD SPECIMEN Ordering Facility: [facility] Address: [address] [place], [place] [id number] Performed By: #### 5 7021-8 #### [facility] CLIA [id number] [address] [place] [address] [place] Ovalocytes LM Ql (Bld) Few Normal [facility] Comment on above: Order Comment: Speci men Type: BLOOD SPECIMEN Ordering Facility: [facility] Address: [address] [place], [place] [id number] Performed By: #### 5 7021-8 #### [facility] CLIA [id number] [address] [place] [address] [place] PLATELET ESTIMATE Decreased Normal [facility] Comment on above: Order Comment: Speci men Type: BLOOD SPECIMEN Ordering Facility: [facility] Address: [address] [place] [address] Performed By: #### 5 7021-8 #### [facility] CLIA [id number] [address] [place] [address] [place] Platelet mean volume (Bld) [Entitic vol] 12.1 fL Normal 9.0-12.7 [facility] Comment on above: Order Comment: Speci men Type: BLOOD SPECIMEN Ordering Facility: [facility] Address: [address] [place] [address] Performed By: #### 5 7021-8 #### [facility] IA [id number] [address] [place] [address] [place] Platelets (Bld) [#/Vol] 80 10*3/uL Low 150-400 M [facility] Comment on above: Order Comment: Speci men Type: BLOOD SPECIMEN Ordering Facility: [facility] Address: [address] [place] [address] Result Comment: Plat elet count confirmed by manual review of peripheral blood smear Performed By: #### 5 7021-8 #### [facility] [place] [id number] [address] [place] [address] [place] RBC (Bld) [#/Vol] 3.07 10*6/uL Low 3.90-5.20 [facility] Comment on above: Order Comment: Speci men Type: BLOOD SPECIMEN Ordering Facility: [facility] Address: [address] [place] [address] Performed By: #### 5 7021-8 #### [facility] CLIA [id number] [address] [place] [address] [place] RED CELL MORPH Reviewed: see result s of individual morphologies Normal [facility] Comment on above: Order Comment: Speci men Type: BLOOD SPECIMEN Ordering Facility: [facility] Address: [address] [place] [address] Performed By: #### 5 7021-8 #### [facility] IA [id number] [address] [place], [place] [address] [facility] WBC (Bld) [#/Vol] 4.89 10*3/uL Normal 3.70-11.00 [facility] Comment on above: Order Comment: Speci men Type: BLOOD SPECIMEN Ordering Facility: [facility] Address: [address] [place], [place] [address] [address] Performed By: #### 5 7021-8 #### [facility] CLIA [id number] [address] [place] [address] [facility] HISTORY PHYSICALon HISTORY PHYSICAL HNO ID: [id number] Author: Jerome Hanna MD Service: Vascular Surgery Author Type: Physician Type: HANDP Filed: 05/04/2022 8:19 AM Note Text: VASCULAR HISTORY AND PHYSICAL EXAMINATION UPDATE EVALUATION DATE: 05/04/2022 EVALUATION TIME: 0800 PHYSICAL EXAM MUST BE COMPLETED ON ADMISSION The History and Physical (completed in the past 30 days) has been reviewed and the patient has been examined. The contents accurately reflect the patient's condition with the following additions or revisions since the HANDP was completed. Examination indicates no changes. This HANDP can be found in the paper record dated 05/04/2022. SIGNATURE: Jerome Hanna MD PATIENT NAME: Lucho Browne DATE: May 04, 2022 TIME: 8:[address] [facility] NURSING PROGon 05-04-2022 NURSING PROG HNO ID: [id number] Author: Arlen Davila RN Service: ? Author Type: Registered Nurse Type: Nursing Progress Note Filed: 05/04/2022 11:34 AM Note Text: Nursing Progress Note Patient Name: Lucho Browne Patient Location: SURGERY ABINGDON/ SURGERY POOL Daily Note: BILATERAL PEDAL AND POSTERIOR TIBIAL PULSE AUDIBLE WITH DOPPLER. This note was completed by: Arlen [facility] NURSING PROG HNO ID: [id number] Author: Arlen Davila RN Service: ? Author Type: Registered Nurse Type: Nursing Progress Note Filed: 05/04/2022 11:19 AM Note Text: Nursing Progress Note Patient Name: Lucho Browne Patient Location: SURGERY ABINGDON/ SURGERY POOL Daily Note:79ML OF ISOVIEW USED FOR INTRA-OP PROCEDURE PER PROTOCOL. This note was completed by: Arlen [facility] NURSING PROG HNO ID: [id number] Author: Arlen Davila RN Service: ? Author Type: Registered Nurse Type: Nursing Progress Note Filed: 05/04/2022 10:29 AM Note Text: Nursing Progress Note Patient Name: Lucho Browne Patient Location: SURGERY ABINGDON/ SURGERY POOL Daily Note: Sodium bicarb rate decrease intra-op to 97ml/hr at 1026. This note was completed by: Arlen [facility] OPERATIVE NOon 05-04-2022 OPERATIVE NO HNO ID: [id number] Author: Jerome Hanna MD Service: Vascular Surgery Author Type: Physician Type: Operative Report Filed: 05/04/2022 12:56 PM Note Text: OPERATIVE/PROCEDURE REPORT LOG ID: [id number] SURGERY/PROCEDURE DATE: 05/04/2022 INCISION/PROCEDURE START TIME: 10:02 AM INCISION CLOSE/PROCEDURE END TIME: 11:28 AM SURGEON(S)/PROCEDURALIS T(S) AND [employer] DEVELOPER(S): Surgeon(s) and Role: * Jerome Hanna MD - Primary No Additional Staff SURGERY/PROCEDURE(S): 1. Bilateral renal angiogram via ultrasound-guided right common femoral artery access 2. HOSPICE FELLOW and stenting of right renal artery using 5 x 15 mm express SD stent ANESTHESIA: Procedural Sedation SURGERY/PROCEDURE DETAILS: After obtaining informed consent, the patient was brought to the operating room placed in the supine position. Bilateral groins were prepped and draped in a sterile fashion. After performing an appropriate timeout, right groin was infiltrated with local anesthetic. Using ultrasound guidance, the right common femoral artery was cannulated with a micropuncture needle and wire and upsized to a micropuncture sheath. Bentson wire was directed into the infrarenal aorta. 4 Lao sheath was placed. Marking pigtail catheter was brought up to the L1 vertebral body. Aortogram was performed using power injector. There was a severe stenosis of the proximal right renal artery. There was a large calcified plaque causing a mild to moderate stenosis of the left renal artery. Bentson wire was replaced. 4 Lao sheath was exchanged for a 6 Lao by 11 cm sheath. Patient was given 4000 units of intravenous heparin. Glidewire was brought up to the level of the right renal artery. Guiding catheter GUTIERREZ was brought up to this level. I did selectively imaged the right renal artery, and this showed the severe stenosis again. Glidewire was used to select the right renal artery. GUTIERREZ catheter was advanced. I then exchanged the 035 for an 018 wire. I attempted to place the 5 x 15 mm express SD stent, but it would not traverse the severe stenosis. I then predilated it with a 3 x 20 mm Keshav balloon for 1 minute. Stent was then brought back in and deployed under fluoroscopic guidance in excellent position. There continued to be a waste in the midportion of the stent. I brought a 6 x 20 mm Keshav balloon and treated the proximal edge and midportion of the stent, but the balloon ruptured. I then brought a 5 x 20 mm Keshav balloon across the stent and inflated this to 10 helen for 1 minute. There was still a slight waist, but significant improvement in the flow through the proximal right renal artery. Guiding catheter and wire were removed. 6 Lao sheath in right groin was removed using a Vascade closure device and manual pressure. Dressing was applied to the right groin access site, and the patient was transported to the recovery room in stable condition. Radiology: 22.1 minutes fluoroscopy time; 238 mGy; 79 cc contrast Conscious sedation: This is a 81-year-old female that underwent right renal artery stenting. She was given 1 mg of Versed and 25 mcg of fentanyl. The patient was monitored for greater than 30 minutes using blood pressure monitoring, telemetry, and pulse oximetry. PRE-OP/PRE-PROCEDURE DIAGNOSIS: Right renal artery stenosis; renovascular hypertension POST-OP/POST-PROCEDURE DIAGNOSIS: Same as Preop ESTIMATED BLOOD LOSS: Minimal SPECIMENS: None IMPLANTABLE DEVICES: None DRAINS: None COMPLICATIONS: None PARTICIPATION IN SURGERY/PROCEDURE: I/primary surgeon/proceduralist performed the entire procedure. SIGNATURE: Jerome Hanna MD PATIENT NAME: Lucho Browne DATE: May 04, 2022 TIME: 12:[address] [facility] MRI ABDOMEN W/O CONon 2021 MRI ABDOMEN W/O CON MRI ABDOMEN WITHOUT CONTRAST Clinical information: Diabetes mellitus. Hypertension. Renal artery stenosis. Multiplanar multisequence noncontrast MRI of the abdomen was performed utilizing renal protocol Comparison: None Contrast: None Findings: LIVER: There are 2 lobulated T2 hyperintense lesions in the right hepatic lobe measuring up to 3.9 cm and 1.3 cm in maximum diameters with subtle internal septation. BILIARY: Cholecystectomy. No biliary ductal dilatation. PANCREAS: Normal in size and signal. No focal abnormalities. No dilatation of the pancreatic duct. SPLEEN: Borderline splenomegaly. Multiple T2 hyperintense foci in the spleen measuring up to 1.3 cm. KIDNEYS: Nonobstructing 0.4 cm calculus in the right lower renal calyx (axial T2 46). No hydronephrosis. Minimally complex left exophytic cortical renal cyst measuring up to 5.7 cm demonstrating subtle internal septum. ADRENALS: No mass. BOWEL: No bowel loop dilatation. MESENTERY/PERITONEUM: No mass. No ascites. No mesenteric or retroperitoneal lymphadenopathy. VASCULAR: Suboptimal evaluation of the vascular structures without IV contrast. Abdominal aorta is nonaneurysmal. MUSCULOSKELETAL: No vertebral compression or suspicious marrow signal. LOWER THORAX: No large pleural effusion. IMPRESSION: 1. Nonobstructing 0.4 cm right renal stone. No hydroureteronephrosis bilaterally. 2. Limited Evaluation of the renal arteries on this noncontrast. If there is clinical concern of renal artery stenosis to be confirmed, consider further evaluation with renal Doppler ultrasound. 3. Minimally complex exophytic left renal cyst with thin internal septum. 4. Multiloculated right hepatic lobe T2 hyperintensities. Several splenic T2 hyperintensities. These could represent hepatic and splenic cysts versus hemangiomas. If needed, ultrasound can be considered. 5. Borderline splenomegaly. This report was electronically signed by Jossy Chong MD 04/05/2022 3:19 PM Reported By: JOSSY CHONG Signed By: JOSSY CHONG Normal [facility] CREATININE W.B.on 02-09-2022 Creatinine [Mass/Vol] 1.7 mg/dL High 0.6-1.3 [facility] Creatinine [Mass/Vol] 1.8 mg/dL High 0.6-1.3 [facility] RENAL ARTERY ULTRASOUNDon [place] [address] Vascular Lab - [facility] Accredited in: Extracranial Cerebrovascular, Visceral Vascular, Vascular Screening & Peripheral Arterial & Venous Testing Quu REPORT Patient: LUCHO BROWNE Dr: LUCY SNEED M.D. [id number] F Status: REG CLI CARD Reason for Visit: HYPERTENSION Service Date: 12/14/21 Access#: [id number] Procedure: RENAL ARTERY ULTRASOUND Conclusions: *This was a very limited exam due to bowel gas and vessel depth. Right- 1. Velocities of 487/49.5 and 456/53.7 cm-s were obtained in the area in which the right renal artery origin and the right proximal renal artery are located. This is suspicious for the presence of a stenosis > 60% in the right renal artery. No views of the mid right renal artery were obtained. The renal aortic ratio is greater than 3.5 which is also concerning for the presence of a stenosis > 60% in the right renal artery. Left- 1. High resistant parenchymal arterial flow is noted in the left kidney. 2. There is a left renal cyst measuring 4.59 x 5.51 cm. 3. Despite attempting multiple different viewing windows, no diagnostic views of the left renal artery could be obtained. Abbreviated Final Report. Full Report available via Link to [employer] in [employer] Image Viewer . Electronically Signed by: Hayden BRIAN M.D. 12/15/21 1243 Hayden BRIAN M.D. cc: LUCY SNEED M.D. << Signature on File>> Reported By: Hayden BRIAN M.D. Signed By: Hayden BRIAN M.D. Tests performed at: [address] [address] Normal [facility] Hemoglobin A1con 2021 Glucose [Mass/Vol] 100 mg/dL Normal [facility] Reference Lab Comment on above: Performed By: #### H BA1C #### [facility] Routine Lab [address] [place] [address] HbA1c (Bld) [Mass fraction] 5.1 % Normal 4.3-5.6 [facility] Comment on above: Performed By: #### H BA1C #### [facility] [address] [place], [place] [address] Hemoglobin A1con 10-05-2021 Glucose [Mass/Vol] 100 mg/dL Normal [facility] Reference Lab Comment on above: Performed By: #### H BA1C #### [facility] [address] [place], [place] [address] HbA1c (Bld) [Mass fraction] 5.1 % Normal 4.3-5.6 [facility] Comment on above: Performed By: #### H BA1C #### [facility] [address] [place] [address] PTH, [place] 10-05-2021 PTH, Intact 77 pg/mL High 15-65 [facility] Comment on above: Performed By: #### P THI #### [facility] Routine Lab [address] [place], [place] [address] PTH, [place] 07-15-2021 PTH, Intact 94 pg/mL High 15-65 [facility] Comment on above: Performed By: #### P THI #### [facility] [address] [place], [place] [address] PTH, [place] 07-07-2021 PTH, Intact 105 pg/mL High 15-65 [facility] Comment on above: Performed By: #### P THI #### [facility] [address] [place], [place] [address] PTH, [place] 05-18-2021 PTH, Intact 150 pg/mL High 15-65 [facility] Comment on above: Performed By: #### P THI #### [facility] [address] [place], [place] [address] PTH, [place] 04-14-2021 PTH, Intact 92 pg/mL High 15-65 [facility] Comment on above: Performed By: #### P THI #### [facility] [address] [place], [place] [address] PTH, [place] 11-11-2020 PTH, Intact 107 pg/mL High 15-65 [facility] Comment on above: Performed By: #### P THI #### [facility] [address] [place], [place] [address] Vital Signs Date Time Vital Sign Value Performing Clinician Delma reyna 04-10-2025 08:43-0400 Diastolic blood pressure 60 mm[Hg] Hamzah Kilpatrick APRN.ECONOMIC DEVELOPMENT DIRECTOR Work Phone: [facility] 04-10-2025 08:43-0400 Heart rate 66 /min Hamzah Kilpatrick APRN.CNP Work Phone: [facility] 04-10-2025 08:43-0400 Systolic blood pressure 132 mm[Hg] Hamzah Kilpatrick PROCUREMENT SPECIALIST.ECONOMIC DEVELOPMENT DIRECTOR Work Phone: [facility] 04-10-2025 08:31-0400 Body height 160.7 cm Hamzah Kilpatrick PROCUREMENT SPECIALIST.ECONOMIC DEVELOPMENT DIRECTOR Work Phone: [facility] 04-10-2025 08:31-0400 Body mass index (BMI) [Ratio] 41.53 kg/m2 Hamzah Kilpatrick PROCUREMENT SPECIALIST.ECONOMIC DEVELOPMENT DIRECTOR Work Phone: [facility] 04-10-2025 08:31-0400 Body weight 107.2 kg Hamzah Kilpatrick PROCUREMENT SPECIALIST.ECONOMIC DEVELOPMENT DIRECTOR Work Phone: [facility] 04-10-2025 08:31-0400 Respiratory rate 16 /min Hamzah Kilpatrick PROCUREMENT SPECIALIST.ECONOMIC DEVELOPMENT DIRECTOR Work Phone: [facility] 04-10-2025 08:31-0400 SaO2% (BldA) [Mass fraction] 97 % Hamzah Kilpatrick PROCUREMENT SPECIALIST.ECONOMIC DEVELOPMENT DIRECTOR Work Phone: [facility] 02-24-2025 15:02-0400 Body temperature 98 [degF] Dr. Avelino Deleon MD Work Phone: [facility] 02-24-2025 15:02-0400 Body weight 112.[address] Avelino Deleon MD Work Phone: [facility] 02-24-2025 15:02-0400 Diastolic blood pressure 90 mm[Hg] Dr. Avelino Deleon MD Work Phone: [facility] 02-24-2025 15:02-0400 Heart rate 96 /min Dr. Avelino Deleon MD Work Phone: [facility] 02-24-2025 15:02-0400 Respiratory rate 17 /min Dr. Avelino Deleon MD Work Phone: [facility] 02-24-2025 15:02-0400 SaO2% (BldA) [Mass fraction] 96 % Dr. Avelino Deleon MD Work Phone: [facility] 02-24-2025 15:02-0400 Systolic blood pressure 140 mm[Hg] Dr. Avelino Deleon MD Work Phone: [facility] 02-16-2024 14:11-0400 Body temperature 97.7 [degF] Barrington Otero MD Work Phone: [facility] 02-16-2024 14:11-0400 Heart rate 73 /min Barrington Otero MD Work Phone: [facility] 02-16-2024 14:11-0400 Respiratory rate 16 /min Barrington Otero MD Work Phone: [facility] 02-16-2024 14:11-0400 SaO2% (BldA) [Mass fraction] 95 % Barrington Otero MD Work Phone: [facility] 02-16-2024 12:23-0400 Diastolic blood pressure 70 mm[Hg] Barrington Otero MD Work Phone: [facility] 02-16-2024 12:23-0400 Systolic blood pressure 160 mm[Hg] Barrington Otero MD Work Phone: [facility] 02-14-2024 14:17-0400 Body height 160 cm Barrington Otero MD Work Phone: [facility] 02-14-2024 14:17-0400 Body mass index (BMI) [Ratio] 48.89 kg/m2 Barrington Otero MD Work Phone: [facility] 02-14-2024 14:17-0400 Body weight 125.19 kg Barrington Otero MD Work Phone: [facility] [employer] 01-01-2023 13:05-0500 Body height 162.6 cm Benjamin Doximity Work Phone: [facility] 01-01-2023 13:05-0500 Body weight 101.15 kg Benjamin Doximity Work Phone: [facility] 01-01-2023 13:05-0500 Diastolic blood pressure 60 mm[Hg] Benjamin Gross DO Work Phone: [facility] 01-01-2023 13:05-0500 Heart rate 64 /min Benjamin Gross DO Work Phone: [facility] 01-01-2023 13:05-0500 SaO2% (BldA) [Mass fraction] 97 % Benjamin Gross DO Work Phone: [facility] 01-01-2023 13:05-0500 Systolic blood pressure 132 mm[Hg] Benjamin Gross DO Work Phone: [facility] 07-12-2022 14:24-0400 Body height 160 cm Susie Hope PROCUREMENT SPECIALIST.ECONOMIC DEVELOPMENT DIRECTOR Work Phone: [facility] 07-12-2022 14:24-0400 Body weight 92.99 kg Susie Hope PROCUREMENT SPECIALIST.ECONOMIC DEVELOPMENT DIRECTOR Work Phone: [facility] 07-12-2022 14:24-0400 Diastolic blood pressure 56 mm[Hg] Susie Hope PROCUREMENT SPECIALIST.ECONOMIC DEVELOPMENT DIRECTOR Work Phone: [facility] 07-12-2022 14:24-0400 Heart rate 57 /min Susie Hope PROCUREMENT SPECIALIST.ECONOMIC DEVELOPMENT DIRECTOR Work Phone: [facility] 07-12-2022 14:24-0400 Systolic blood pressure 142 mm[Hg] Susie Hope PROCUREMENT SPECIALIST.ECONOMIC DEVELOPMENT DIRECTOR Work Phone: [facility] Encounters Encounter Date Encounter Type Care Provider Facility Start: 04-27-2025 ambulatory [facility] Facility:[facility] Start: 04-22-2025 End: 04-22-2025 ambulatory LUCY SNEED [facility] Start: 04-10-2025 End: 04-10-2025 Patient encounter procedure Hamzah Kilpatrick PROCUREMENT SPECIALIST.ECONOMIC DEVELOPMENT DIRECTOR Work Phone: [facility] Comment on above: 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); Renal artery stenosis; Primary hypertension; Class 3 severe obesity due to excess calories with serious comorbidity and body mass index (BMI) of 40.0 to 44.9 in adult (HCC); History of echocardiogram Start: 04-10-2025 End: 04-10-2025 ambulatory HAMZAH KILPATRICK Facility:[id number] Start: 04-09-2025 End: 04-09-2025 ambulatory [facility] Start: 04-06-2025 End: 04-07-2025 Telephone encounter Benjamin Rudd DO Work Phone: [facility] Comment on above: Appointment Start: 04-02-2025 ambulatory [facility] Start: 03-26-2025 End: 03-26-2025 ambulatory [facility] Facility[facility] Start: 03-25-2025 End: 03-25-2025 ambulatory [facility] Start: 03-11-2025 Encounter for other preprocedural examination Lindsey Simon [facility] Start: 03-11-2025 End: 03-11-2025 ambulatory [facility] Start: 03-04-2025 Non-patient / Non-visit [facility]. Jose C trinidad MD [facility] Start: 03-04-2025 End: 03-04-[address] Avelino Deleon MD Work Phone: [facility] Work Phone: Start: 03-04-2025 End: 03-04-2025 Patient encounter procedure Lindsey STAUFFER -Cardiovascular Services Work Phone: Start: 03-04-2025 End: 03-04-2025 ambulatory [facility] Facility:[facility] Start: 02-25-2025 End: 02-25-2025 ambulatory [facility] Start: 02-24-2025 End: 02-24-2025 Patient encounter procedure Lindsey STAUFFER [facility] Work Phone: Start: 02-24-2025 End: 02-24-2025 ambulatory Avelino Deleon Facility:[facility] Start: 01-28-2025 End: 01-28-2025 ambulatory [facility] Start: 01-14-2025 End: 01-14-2025 ambulatory [facility] Start: 12-31-2024 End: 12-31-2024 ambulatory [facility] Start: 12-19-2024 End: 12-19-2024 ambulatory [facility] Start: 12-03-2024 End: 12-03-2024 ambulatory [facility] Start: 11-19-2024 End: 11-19-2024 ambulatory [facility] Start: 11-19-2024 [facility]: [facility]24 [facility] Start: 11-04-2024 End: 11-04-2024 ambulatory [facility] Start: 10-22-2024 End: 10-22-2024 ambulatory [facility] Start: 10-08-2024 End: 10-08-2024 ambulatory [facility] Start: 09-24-2024 End: 09-24-2024 ambulatory [facility] Start: 09-10-2024 End: 09-10-2024 ambulatory [facility] Start: 08-27-2024 End: 08-27-2024 ambulatory [facility] Start: 08-12-2024 End: 08-12-2024 ambulatory [facility] Start: 08-11-2024 ambulatory [facility] Start: 08-07-2024 ambulatory Devon [facility] Start: 08-07-2024 Office outpatient vi sit 15 minutes [facility] Start: 08-05-2024 ambulatory [facility] Start: 07-30-2024 End: 07-30-2024 ambulatory AVELINO HOWARD [facility] Start: 07-16-2024 End: 07-16-2024 ambulatory [facility] Start: 07-02-2024 End: 07-02-2024 ambulatory [facility] Start: 06-17-2024 End: 06-17-2024 ambulatory AVELINO HOWARD [facility] Start: 06-04-2024 End: 06-04-2024 ambulatory [facility] Start: 05-14-2024 End: 05-14-2024 ambulatory [facility] Start: 04-30-2024 End: 04-30-2024 ambulatory [facility] Start: 02-26-2024 Telephone encounter Aj rouse MD Work Phone: [facility] Neurology Comment on above: Appointment Start: 02-13-2024 End: 02-13-2024 ambulatory CHARLIE SYED [facility] Start: 02-12-2024 End: 02-16-2024 Evaluation and management of inpatient PCP TERRENCE [facility] Start: 02-11-2024 End: 02-16-2024 Evaluation and management of inpatient Barrington Otero MD Work Phone: [facility] Trauma Neuro Progressive Care Unit PCU 3W Comment on above: Ischemic stroke (HCC ) (Primary Dx); Edema of left upper extremity; Renovascular hypertension; Pre-syncope Start: 11-01-2023 End: 11-01-2023 ambulatory LAURIE STEIN Not Available Start: 09-24-2023 End: 09-24-2023 ambulatory LAURIE STEIN Not Available Start: 01-01-2023 End: 01-01-2023 Patient encounter procedure Benjamin Rudd DO Work Phone: [facility] Cardiology Comment on above: Localized edema (Rajani laura Dx); Essential hypertension, benign; Chronic kidney disease, stage IV (severe) (HCC); Type 2 diabetes mellitus without complication, without long-term current use of insulin (HCC); Obstructive sleep apnea treated with bilevel positive airway pressure (BiPAP); History of echocardiogram; Non-smoker Start: 07-12-2022 End: 07-12-2022 Patient encounter procedure Susie Hope APRN.ECONOMIC DEVELOPMENT DIRECTOR Work Phone: [facility] Cardiology Comment on above: Hospital discharge f ollow-up (Primary Dx); Pseudoaneurysm of femoral artery (HCC); Hypertension, unspecified type; Bilateral lower extremity edema; History of echocardiogram; History of diabetes mellitus; Never smoked cigarettes Start: 07-07-2022 Orders Only Susie Hope APRN.ECONOMIC DEVELOPMENT DIRECTOR Work Phone: [facility] Comment on above: Hypertension, unspec ified type (Primary Dx) Start: 04-05-2022 End: 04-05-2022 Subsequent hospital visit by physician Jerome Hanna MD Work Phone: [facility] Comment on above: I70.1 Start: 02-09-2022 End: 02-09-2022 Subsequent hospital visit by physician Jerome Hanna MD Work Phone: [facility] Comment on above: I77.1,I70.1 Procedures Date Procedure Procedure Detail Performing Clinician Start: 04-10-2025 Ecg routine ecg w/le ast 12 lds i&r only Hamzah Kilpatrick APRN.ECONOMIC DEVELOPMENT DIRECTOR Work Phone: Start: 02-16-2024 Basic metabolic pane l calcium total Ge Ojy Jose DO Work Phone: Start: 02-15-2024 Mra abdomen w/wo con trast material Rebecca Rodriguez MD Work Phone: Start: 02-15-2024 Basic metabolic pane l calcium total Ge Joy Garcia DO Work Phone: Start: 02-15-2024 C-reactive protein Sushil is Joy Garcia DO Work Phone: Start: 02-14-2024 Us abdominal real ti me w/image documentation Rosario Flowerssemaj PROCUREMENT SPECIALIST - ECONOMIC DEVELOPMENT DIRECTOR Work Phone: Start: 02-14-2024 Basic metabolic pane l calcium total Jose C Kiza DO Work Phone: Start: 02-13-2024 Duplex scan extracra nial art compl bi study Charlie Syed MD Work Phone: Start: 02-13-2024 Dup-scan xtr veins c omplete bilateral study Charlie Syed MD Work Phone: Start: 02-13-2024 Electroencephalogram w/rec awake&drowsy Charlie Syed MD Work Phone: Start: 02-13-2024 Basic metabolic pane l calcium total Jose C Kiza DO Work Phone: Start: 02-13-2024 Hepatitis c antibody Am ej Flowerssemaj PROCUREMENT SPECIALIST - ECONOMIC DEVELOPMENT DIRECTOR Work Phone: Start: 02-13-2024 Iaad ia hepatitis b surface antigen Rosario Flowerssemaj PROCUREMENT SPECIALIST - ECONOMIC DEVELOPMENT DIRECTOR Work Phone: Start: 02-12-2024 Mri brain brain stem w/o contrast material [employer] DO Work Phone: Start: 02-12-2024 Dup-scan xtr veins unilateral/limited study Rosario Tiffany Pratt DO Work Phone: Start: 02-12-2024 Comprehensive metabolic panel Karthikeyan Rosenberg MD Work Phone: Start: 02-12-2024 Radiologic exam abdomen 1 view [email or web address]Scott Salina DO Work Phone: Start: 02-12-2024 Radiologic exam ches t single view [email or web address]Scott Salina DO Work Phone: Start: 02-12-2024 TTE w or wo fol wcon,Doppler Jose Cmarcelina Rueda DO Work Phone: Start: 02-12-2024 Ecg routine ecg w/le ast 12 lds i&r only Rosario Pratt DO Work Phone: Start: 02-12-2024 Assay of troponin quantitative Jose C Arceza DO Work Phone: Start: 02-12-2024 Assay of troponin quantitative Jose C Claudeza DO Work Phone: Start: 02-12-2024 Lipid 1996 panel - S lan or Plasma Barrington Otero MD Work Phone: Start: 02-12-2024 Basic metabolic pane l calcium total Jose C Claudeza DO Work Phone: Start: 02-12-2024 Lipid panel Jose C Claudeza DO Work Phone: Start: 02-12-2024 Ecg routine ecg w/le ast 12 lds trcg only w/o i&r Jose C Rueda DO Work Phone: Start: 02-11-2024 Ct head/brain w/o co ntrast material Charlie Syed MD Work Phone: Start: 05-06-2022 Antibody screen Comment on above: Order Comment: Speci men Type: BLOOD SPECIMEN Ordering Facility: [facility] Address: [address] [place], [place] [address] Performed By: #### 2 [id number] #### [facility] CLIA [id number] [address] [place], [place] [id number] [facility] Plan of Treatment Date Care Activity Detail Author Start: 02-11-2029 Lipid panel Lipid Panel [facility] Start: 02-15-2027 Diabetes Screening Diabetes Screenin g [facility] Start: 07-06-2025 Influenza vaccination Influenz a Vaccine (Season Ended) [facility] Start: 04-02-2025 Covid-19 Vaccine ( season) Covid-19 Vaccine ( season) [facility] Start: 2024 Advance Directive Discussion Advance Directive Discussion [facility] Start: 07-06-2024 Covid-19 Vaccine () Covid-19 Vaccine () [facility] Start: 07-06-2024 Influenza vaccination Influenz a Vaccine (Season Ended) [facility] Start: 02-09-2024 Hepatitis B screening Urine Albumin:Creatinine Ratio [facility] Start: 2023 Advance Directive Discussion Advance Directive Discussion [facility] Start: 2023 Behavioral Health Screening Behavioral Health Screening [facility] Start: 08-10-2023 Hemoglobin A1c measurement HbA1C [facility] Start: 07-12-2023 Hepatitis B screening URINE ALBUMIN:CREATININE RATIO [facility] Start: 07-06-2023 COVID-19 Vaccine () COVID-19 Vaccine () [facility] Start: 07-06-2023 Covid-19 Vaccine () Covid-19 Vaccine () [facility] Start: 05-12-2023 SERUM CREATININE SERUM CREATININE [facility] Start: 05-11-2023 HEMOGLOBIN/HEMATOCRIT HEMOGLOBIN/HEM ATOCRIT [facility] Start: 03-06-2023 BP CONTROLLED (<130/80) BP CONTROLLE D (<130/80) [facility] Start: 01-09-2023 Hemoglobin A1c/Hemoglobin.total in Blood HBA1C [facility] Start: 12-14-2022 HEMOGLOBIN/HEMATOCRIT HEMOGLOBIN/HEM ATOCRIT [facility] Start: 12-14-2022 SERUM CREATININE SERUM CREATININE [facility] Start: 11-16-2022 Hemoglobin A1c/Hemoglobin.total in Blood HBA1C [facility] Start: 2022 ADVANCE DIRECTIVE DISCUSSION ADVANCE DIRECTIVE DISCUSSION [facility] Start: 2022 DEPRESSION ASSESSMENT DEPRESSION ASS ESSMENT [facility] Start: 09-13-2022 Hemoglobin A1c/Hemoglobin.total in Blood HBA1C [facility] Start: 07-06-2022 Influenza vaccination INFLUENZA (#1) [facility] Start: 02-01-2022 COVID-19 VACCINE (4 - Booster for Moderna series) COVID-19 VACCINE (4 - Booster for Moderna series) [facility] Start: 11-29-2021 COVID-19 VACCINE (4 - Booster for Moderna series) COVID-19 VACCINE (4 - Booster for Moderna series) [facility] Start: 2021 ADVANCE DIRECTIVE DISCUSSION ADVANCE DIRECTIVE DISCUSSION [facility] Start: 2017 RSV Vaccine (1 - 1-d ose 75+ series) RSV Vaccine (1 - 1-dose 75+ series) [facility] Start: 2007 BONE DENSITY BONE DENSITY [facility] Start: 2007 Pneumococcal Vaccine : 65+ Years (1 of 1 - PCV) Pneumococcal Vaccine: 65+ Years (1 of 1 - PCV) [facility] Start: 2007 PNEUMOVAX AGE 65 AND OVER WITH 5YR LOOKBACK (#1) PNEUMOVAX AGE 65 AND OVER WITH 5YR LOOKBACK (#1) [facility] Start: 2007 Screening for osteoporosis Bone Density Screening [facility] Start: 2002 RSV Immunization age d 60 or older (1 - 1-dose 60+ series) RSV Immunization aged 60 or older (1 - 1-dose 60+ series) [facility] Start: 2002 RSV Vaccine (1 - 1-d ose 60+ series) RSV Vaccine (1 - 1-dose 60+ series) [facility] Start: 1992 SHINGRIX VACCINE (1 of 2) SHINGRIX VACCINE (1 of 2) [facility] Start: 1992 Zoster Vaccines (1 o f 2) Zoster Vaccines (1 of 2) [facility] Start: 1962 Hepatitis B Vaccine (1 of 3 - Risk Dialysis 4-dose series) Hepatitis B Vaccine (1 of 3 - Risk Dialysis 4-dose series) [facility] Start: 1961 DTaP/Tdap/Td Vaccine s (1 - Tdap) DTaP/Tdap/Td Vaccines (1 - Tdap) [facility] Start: 1961 Urine microalbumin profile [facility] Start: 1960 ANNUAL PCP TEAM INFORMATION ANALYST HAM DISEASE VISIT ANNUAL PCP TEAM CHRONIC DISEASE VISIT [facility] Start: 1960 Anxiety Screening Anxiety Screening [facility] Start: 1960 BP CONTROLLED (<130/80) BP CONTROLLE D (<130/80) [facility] Start: 1960 Depression Screening Depression Scre ening [facility] Start: 01-01-1961 Hepatitis B surface antibody level LDL CHOLESTEROL [facility] Start: 1954 Adult depression screening assessment DEPRESSION SCREENING [facility] Start: 1952 3 comp foot exam completed DIABETIC FOOT EXAM [facility] Start: 1952 Diabetic foot examination Diabetic Foot Exam [facility] Start: 1952 Glaucoma screening Dilated Retinal E xam [facility] Start: 1952 Hepatitis B screening URINE ALBUMIN:CREATININE RATIO [facility] Start: 1952 Hepatitis C antibody , confirmatory test DILATED RETINAL EXAM [facility] Start: 1948 PNEUMOCOCCAL: 65+ (1 - PCV) PNEUMOCOCCAL: 65+ (1 - PCV) [facility] Start: 1947 Hemoglobin A1c/Hemoglobin.total in Blood HBA1C [facility] Start: 1942 Medicare Annual Wellness (AWV) Medicare Annual Wellness (AWV) [facility] Start: 1942 Screening for osteoporosis Bone Density Scan [facility] End: 07-07-2023 ECG COMPLETE ECG COMPLETE ECG Routine Hypertension, unspecified type 1 Occurrences starting 07/07/2022 until 07/07/2023 [facility] Work Phone: Comment on above: 1 Occurrences starti ng 07/07/2022 until 07/07/2023 ECG COMPLETE ECG COMPLETE ECG Routine Primary hypertension 04/10/2025 8:46 AM EDT [facility] Work Phone: [facility] Immunizations Immunization Date Immunization Notes Care Provider Fa cilipal 08-17-2021 influenza virus vacc ine, unspecified formulation Aj Layton MD Work Phone: [facility] Payers Date Payer Category Payer Self-pay 2020 Private Health Insurance [employer] [place] [id number] 2020 Unknown [employer] 2N D [id number] 2020-Present [phone] [address] [address] [place] [id number] Indemnity [id number] .2.7.3.251835.315 2020 Unknown [id number]. 1.13.159 .2.7.3.133362.315 2020 Unknown [id number] 2007 Medicare MEDICARE MEDICAR E A AND B [id number] 2007-Present [phone] [place] [address] Medicare [id number] .2.7.3.100549.315 2007 Medicare [id number]. 1.13.159 .2.7.3.092449.315 2006 Medicare [id number] 1942 Unknown [id number] 2.16.840.1.014963.3.579 .2.1259 1942 Unknown [id number] 2.16.840.1.586519.3.579 .2.1259 1942 Unknown [id number] 2.16.840.1.070982.3.579 .2.1347 1942 Unknown [id number] 2.16.840.1.551715.3.579 .2.1347 1942 Unknown [id number] 2.16.840.1.580533.3.579 .2.651 1942 Unknown [id number] 2.16.840.1.781003.3.579 .2.651 1942 Unknown [id number] 2.16.840.1.844481.3.579 .2.65 1942 Unknown [id number] 2.16.840.1.664161.3.579 .2.65 1942 Unknown [id number] 2.16.840.1.413600.3.579 .2.65 1942 Unknown [id number] 2.16.840.1.834151.3.579 .2.65 1942 Unknown [id number] 2.16.840.1.858525.3.579 .2. 1942 Unknown [id number] 2.16.840.1.752763.3.579 .2. 1942 Unknown [id number] 2.16.840.1.831843.3.579 .2. 1942 Unknown [id number] 2.16.840.1.608180.3.579 .2.65 1942 Unknown [id number] 2.16.840.1.992586.3.579 .2. 1942 Unknown [id number] 2.16.840.1.838929.3.579 .2.65 1942 Unknown [id number] 2.16.840.1.811658.3.579 .2.65 1942 Unknown [id number] 2.16.840.1.068788.3.579 .2.65 1942 Unknown [id number] 2.16.840.1.332009.3.579 .2.65 1942 Unknown [id number] 2.16.840.1.283371.3.579 .2.65 1942 Unknown [id number] 2.16.840.1.199211.3.579 .2.651 1942 Unknown [id number] 2.16.840.1.852508.3.579 .2.651 1942 Unknown [id number] 2.16.840.1.197700.3.579 .2.651 1942 Unknown [id number] 2.16.840.1.842618.3.579 .2.65 1942 Unknown [id number] 2.16.840.1.002433.3.579 .2.651 1942 Unknown [id number] 2.16.840.1.248562.3.579 .2.65 1942 Unknown [id number] 2.16.840.1.723429.3.579 .2.65 1942 Unknown [id number] 2.16.840.1.238806.3.579 .2.65 1942 Unknown [id number] 2.16.840.1.771520.3.579 .2.651 1942 Unknown [id number] 2.16.840.1.897355.3.579 .2.65 1942 Unknown [id number] 2.16.840.1.591996.3.579 .2.651 1942 Unknown [id number] 2.16.840.1.504242.3.579 .2.65 1942 Unknown [id number] 2.16.840.1.497593.3.579 .2.651 1942 Unknown [id number] 2.16.840.1.676504.3.579 .2.651 Private Health Insurance [id number] Unknown [id number] 2.16.840.1.849701.3.579 .2.462 Unknown [id number] 2.16.840.1.586086.3.579 .2.462 Unknown [id number] 2.840.1.649062.3.579 .2.462 Unknown [id number] 2.840.1.178841.3.579 .2.462 Unknown [id number] 2.840.1.024702.3.579 .2.462 Social History Date Type Detail Facility Start: 12-07-2021 End: 02-24-2025 Tobacco smoking status NHIS Never smoked tobacco [facility] Start: 12-07-2021 Tobacco use and exposure Smokeless tobacco non-user [facility] Start: 12-14-2021 End: 01-01-2023 Alcohol intake Ex-drinker (finding) [facility] Start: 1940 Sex Assigned At Not on file [facility] Start: 02-24-2022 End: 07-12-2022 Exposure to SARS-CoV-2 (event) Not sure [facility] Tobacco smoking stat us NVIS Tobacco smoking consumption unknown [facility] Start: 01-01-2023 End: 02-14-2024 History of Social function [facility] Start: 01-01-2023 End: 02-14-2024 [facility] Utilities [facility] Has the [employer], or [employer] threatened to shut off services in your home in past 12Mo Patient declined [facility] Within the last year , have you been afraid of your partner or ex-partner? No [facility] How often to you hav e a drink containing alcohol? Never [facility] Start: 1940 Sex Assigned At Female [facility] Medical Equipment Procedure Code Equipment Code Equipment Origin al Text Equipment Identifier Dates System Vascade 6 /7fr Collagen Compression Bioabsorbable Vascular - [id number] Start: 05-04-2022 Stent Express Sd Monorail 5mm Stainless Steel 15mm 90cm Biliary Premount - [id number] Start: 05-04-2022 System Vascade 6 /7fr Collagen Compression Bioabsorbable Vascular - [id number] Start: 05-04-2022 Goals Date Patient Goal Desired Activity /State Personal health goal Functional Status Date Assessment Result Facility 05-12-2022 Are you deaf, or do you have serious difficulty hearing No 05/12/2022 8:32 PM EDTracey Skinner RN No [facility] 05-12-2022 Are you blind, or do you have serious difficulty seeing, even when wearing glasses No 05/12/2022 8:32 PM EDT Tracey Altamirano RN No [facility] 05-12-2022 Do you have serious difficulty walking or climbing stairs No 05/12/2022 8:32 PM EDTracey Skinner RN No [facility] 05-12-2022 Do you have difficul ty dressing or bathing No 05/12/2022 8:32 PM EDTracey Skinner RN No [facility] 05-12-2022 Because of a physica l, mental, or emotional condition, do you have difficulty doing errands alone such as visiting a physician's office or shopping No 05/12/2022 8:32 PM EDTracey Skinner RN No [facility] Mental Status Date Assessment Result Facility 05-12-2022 Because of a physica l, mental, or emotional condition, do you have serious difficulty concentrating, remembering, or making decisions No 05/12/2022 8:32 PM EDT Tracey Altamirano RN No [facility] Clinical Notes 05-04-2022 to 04-10-2025 Hamzah Kilpatrick APRN.ECONOMIC DEVELOPMENT DIRECTOR - 04/10/2025 8:22 AM EDTTelephone Encounter - Izzy Brian RN - 04/07/2025 8:45 AM EDTTelephone Encounter - Izzy Brian RN - 04/07/2025 8:45 AM EDT Note Date & Type Note Facility 04-10-2025 Note HNO ID: [id number] Author: HAMZAH KILPATRICK APRN.DOMINIQUE Service: ? Author Type: Nurse Practitioner Type: Progress Notes Filed: 04/10/2025 10:12 Note Text: Date: April 10, 2025 Chief Complaint: Upcoming fistula creation HISTORY OF PRESENT ILLNESS: Lucho Browne is a 84 year old female who presents to discuss cardiac clearance for right arm fistula creation surgery. Patient that she is scheduled for right arm fistula creation for dialysis in 4 days on 04/14/[address] Jose C Ashraf. 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 Patient underwent echocardiogram in 2020 which showed normal systolic function. Patient denies chest pain, palpitations, dyspnea, lightheadedness, or edema. Patient is clear from a cardiac standpoint for surgery. Revised Cardiac Risk Index: zero (4% risk of cardiac event). ALLERGIES No Known Allergies PAST MEDICAL HISTORY: PAST MEDICAL HISTORY Diagnosis Date Edema ESRD on dialysis ([facility]) [facility] [facility] Dr. 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 Normal systolic function. Moderate concentric LVH. Mild TR. History of stent insertion of renal artery 05/04/2022 Right renal artery stent. Vascular Surgeon Dr. Jerome Hanna. Hypertension Obstructive sleep apnea treated with bilevel positive airway pressure (BiPAP) PAST SURGICAL HISTORY Procedure Laterality Date HYSTERECTOMY N/A 1989 REMOVAL GALLBLADDER N/A 2011 History reviewed. No pertinent family history. SOCIAL HISTORY: Tobacco Use: Never Alcohol Use: Not Currently Drug Use: Not Currently Employer And Job Title: None on file Years Of Education Completed: Not specified Marital Status: MEDICATIONS: Current Outpatient Medications Medication Sig hydrALAZINE (APRESOLINE) 25 mg tablet Take 25 mg by mouth three times a day as needed. (Patient taking differently: Take 25 mg by mouth three times a day.) furosemide (LASIX) 40 mg tablet Take 40 mg by mouth two times a day. cloNIDine HCl (CATAPRES) 0.2 mg tablet Take 0.2 mg by mouth three times a day. Cholecalciferol, Vitamin D3, 25 mcg (1,000 unit) cap Take 1,000 Units by mouth once daily. spironolactone (ALDACTONE) 100 mg tablet Take 100 mg by mouth once daily. calcitriol (ROCALTROL) 0.5 mcg capsule Take 0.5 mcg by mouth once daily. aspirin, enteric coated (ASPIRIN, ENTERIC COATED) 81 mg EC tablet Take 81 mg by mouth once daily. amLODIPine (NORVASC) 10 mg tablet Take 10 mg by mouth once daily. allopurinol (ZYLOPRIM) 100 mg tablet Take 50 mg by mouth once daily. magnesium oxide (MAG-OX) 400 mg (241.3 mg magnesium) tablet Take 400 mg by mouth two times a day. metOLazone (ZAROXOLYN) 5 mg tablet Take 5 mg by mouth two times a day. rOPINIRole (REQUIP) 0.5 mg tablet Take 0.5 mg by mouth every evening. atorvastatin (LIPITOR) 40 mg tablet Take 40 mg by mouth daily at bedtime. acetaminophen 650 mg CR tablet Take 650 mg by mouth every 4 hours as needed. busPIRone (BUSPAR) 10 mg tablet Take 10 mg by mouth twice daily. No current facility-administered medications for this visit. I have personally reviewed the patients past medical history including social, family, surgical, diagnostics, and medications. REVIEW OF SYSTEMS: Review of Systems Constitutional: Negative for chills and fatigue. Respiratory: Negative for chest tightness and shortness of breath. Cardiovascular: Positive for leg swelling (chronic). Negative for chest pain and palpitations. Gastrointestinal: Negative. Musculoskeletal: Gait problem: ambulates with walker. Skin: Negative. Neurological: Negative for dizziness, syncope, weakness, light-headedness, numbness and headaches. Hematological: Does not bruise/bleed easily. Psychiatric/Behavioral: Negative for confusion and hallucinations. PHYSICAL EXAMINATION: BP 132/60 (BP Site: Left Arm, BP Position: Sitting) Pulse 66 Resp 16 Ht 160.7 cm (5' 3.25) Wt 107.2 kg (236 lb 5.3 oz) SpO2 97% BMI 41.53 kg/m? Last 3 Encounter BP Readings: Date: BP: 01/01/2023 132/60 07/12/2022 142/56 05/05/2022 116/40 Last 3 Encounter Pulse Readings: Date: Pulse: 01/01/2023 64 07/12/2022 57 05/05/2022 88 Last 3 Encounter Wt Readings: Date: Wt: 01/01/2023 101.2 kg (223 lb) 07/12/2022 93 kg (205 lb) 05/05/2022 104.6 kg (230 lb 11.2 oz) Physical Exam LABS: Glucose (mg/dL) Date Value 05/12/2022 196 12/14/2021 115 Potassium (mmol/L) Date Value 05/12/2022 4.1 12/14/2021 4.0 Sodium (mmol/L) Date Value 05/12/2022 139 12/14/2021 142 Chloride (mmol/L) Date Value 05/12/2022 109 12/14/2021 104 CO2 (mmol/L) Date Value 05/12/2022 26 12/14/2021 27 Creatinine (mg/dL) Date Value 05/12/2022 1.23 12/14/2021 1.27 BUN (mg/dL) Date Value 05/12/2022 45 12/14/2021 45 Anion Gap (mmol/L) Date Value 05/12/2022 4 12/14/2021 11 Calcium (mg/dL) Date Value 12/14/19 (more content not included)... [facility] 04-10-2025 History of Presen t illness Narrative Images from the original note were not included. Date: April 10, 2025 Chief Complaint: Upcoming fistula creation HISTORY OF PRESENT ILLNESS: Lucho Browne is a 84 year old female who presents to discuss cardiac clearance for right arm fistula creation surgery. Patient that she is scheduled for right arm fistula creation for dialysis in 4 days on 04/14/[address] Jose C Ashraf. 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 Patient underwent echocardiogram in 2020 which showed normal systolic function. Patient denies chest pain, palpitations, dyspnea, lightheadedness, or edema. Patient is clear from a cardiac standpoint for surgery. Revised Cardiac Risk Index: zero (4% risk of cardiac event). ALLERGIES No Known Allergies PAST MEDICAL HISTORY: PAST MEDICAL HISTORY Diagnosis Date Edema ESRD on dialysis ([facility]) [employer] Dr. 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 Normal systolic function. Moderate concentric LVH. Mild TR. History of stent insertion of renal artery 05/04/2022 Right renal artery stent. Vascular Surgeon Dr. Jerome Hanna. Hypertension Obstructive sleep apnea treated with bilevel positive airway pressure (BiPAP) PAST SURGICAL HISTORY Procedure Laterality Date HYSTERECTOMY N/A 1989 REMOVAL GALLBLADDER N/A 2011 History reviewed. No pertinent family history. SOCIAL HISTORY: Tobacco Use: Never Alcohol Use: Not Currently Drug Use: Not Currently Employer And Job Title: None on file Years Of Education Completed: Not specified Marital Status: MEDICATIONS: Current Outpatient Medications Medication Sig hydrALAZINE (APRESOLINE) 25 mg tablet Take 25 mg by mouth three times a day as needed. (Patient taking differently: Take 25 mg by mouth three times a day.) furosemide (LASIX) 40 mg tablet Take 40 mg by mouth two times a day. cloNIDine HCl (CATAPRES) 0.2 mg tablet Take 0.2 mg by mouth three times a day. Cholecalciferol, Vitamin D3, 25 mcg (1,000 unit) cap Take 1,000 Units by mouth once daily. spironolactone (ALDACTONE) 100 mg tablet Take 100 mg by mouth once daily. calcitriol (ROCALTROL) 0.5 mcg capsule Take 0.5 mcg by mouth once daily. aspirin, enteric coated (ASPIRIN, ENTERIC COATED) 81 mg EC tablet Take 81 mg by mouth once daily. amLODIPine (NORVASC) 10 mg tablet Take 10 mg by mouth once daily. allopurinol (ZYLOPRIM) 100 mg tablet Take 50 mg by mouth once daily. magnesium oxide (MAG-OX) 400 mg (241.3 mg magnesium) tablet Take 400 mg by mouth two times a day. metOLazone (ZAROXOLYN) 5 mg tablet Take 5 mg by mouth two times a day. rOPINIRole (REQUIP) 0.5 mg tablet Take 0.5 mg by mouth every evening. atorvastatin (LIPITOR) 40 mg tablet Take 40 mg by mouth daily at bedtime. acetaminophen 650 mg CR tablet Take 650 mg by mouth every 4 hours as needed. busPIRone (BUSPAR) 10 mg tablet Take 10 mg by mouth twice daily. No current facility-administered medications for this visit. I have personally reviewed the patients past medical history including social, family, surgical, diagnostics, and medications. REVIEW OF SYSTEMS: Review of Systems Constitutional: Negative for chills and fatigue. Respiratory: Negative for chest tightness and shortness of breath. Cardiovascular: Positive for leg swelling (chronic). Negative for chest pain and palpitations. Gastrointestinal: Negative. Musculoskeletal: Gait problem: ambulates with walker. Skin: Negative. Neurological: Negative for dizziness, syncope, weakness, light-headedness, numbness and headaches. Hematological: Does not bruise/bleed easily. Psychiatric/Behavioral: Negative for confusion and hallucinations. PHYSICAL EXAMINATION: BP 132/60 (BP Site: Left Arm, BP Position: Sitting) Pulse 66 Resp 16 Ht 160.7 cm (5' 3.25) Wt 107.2 kg (236 lb 5.3 oz) SpO2 97% BMI 41.53 kg/m Last 3 Encounter BP Readings: Date: BP: 01/01/2023 132/60 07/12/2022 142/56 05/05/2022 116/40 Last 3 Encounter Pulse Readings: Date: Pulse: 01/01/2023 64 07/12/2022 57 05/05/2022 88 Last 3 Encounter Wt Readings: Date: Wt: 01/01/2023 101.2 kg (223 lb) 07/12/2022 93 kg (205 lb) 05/05/2022 104.6 kg (230 lb 11.2 oz) Physical Exam LABS: Glucose (mg/dL) Date Value 05/12/2022 196 12/14/2021 115 Potassium (mmol/L) Date Value 05/12/2022 4.1 12/14/2021 4.0 Sodium (mmol/L) Date Value 05/12/2022 139 12/14/2021 142 Chloride (mmol/L) Date Value 05/12/2022 109 12/14/2021 104 CO2 (mmol/L) Date Value 05/12/2022 26 12/14/2021 27 Creatinine (mg/dL) Date Value 05/12/2022 1.23 12/14/2021 1.27 BUN (mg/dL) Date Value 05/12/2022 45 12/14/2021 45 Anion Gap (mmol/L) Date Value 05/12/2022 4 12/14/2021 11 Calcium (mg/dL) Date Value 12/14/2021 9.0 Calcium, Total (mg/dL) Date Value 05/12/2022 8.0 Albumin (g/dL) Date Value 12/14/2021 3.3 Hemoglobin (g/dL) Date Value 05/11/2022 7.3 12/14/2021 9.8 Hematocrit (%) Date Value 05/11/2022 22.0 12/14/2021 30.9 WBC (k/uL) Date Value 05/10/2022 5.45 12/14/2021 4.67 No results found for: CHOL, HDL, LDL, TG EKG: DIAGNOSTIC TEST RESULTS: Recent Results (from the past 24 hours) ECG COMPLETE Collection Time: 04/10/25 8:46 AM Result Value Ref Range Ventricular Rate 65 BPM Atrial Rate 65 BPM P-R Interval 172 ms QRS Duration 94 ms QT Interval 424 ms QTC Calculation (Bazett) 440 ms Calculated P [place] 42 degrees Calculated R [place] -5 degrees Calculated T [place] 14 degrees Narrative NAME : LUCHO BROWNE PID : [id number] : 1940 Gender : Female Race : ORD : [id number] Procedure Date : Apr 10 2025 08:46:18 Edit Date : Apr 10 2025 08:41:25 Diagnosis: Normal sinus rhythm Moderate voltage criteria for LVH, may be normal variant Borderline ECG No previous ECGs available Test Reason : HCS Location : 2 : [place] Overread By : , Edited By : , Referred By : , Acquired by : , Impression Normal sinus rhythm Moderate voltage criteria for LVH, may be normal variant Borderline ECG No previous ECGs available ASSESSMENT/PLAN: 1. Stage 5 chronic kidney disease on chronic dialysis ([facility]) - ICD9: 585.6, V45.11, ICD10: N18.6, Z99.2 (primary diagnosis) - Clear from cardiac standpoint for right arm fistula creation surgery. - Counseled on low sodium diet. - Managed by [employer]. - ECG COMPLETE 2. Renal artery stenosis - ICD9: 440.1, ICD10: I70.1 - History of right renal artery stent. 3. Primary hypertension - ICD9: 401.9, ICD10: I10 - Controlled - Encouraged sodium restriction, DASH or Mediterranean diet - Recommend regular aerobic exercise - Discussed need for and benefit of weight loss. BMI 41.53 kg/(m^2) - Reviewed risks of hypertension and principles of treatment - Managed by [employer]. 4. Class 3 severe obesity due to excess calories with serious comorbidity and body mass index (BMI) of 40.0 to 44.9 in adult ([facility]) - ICD9: 278.01, V85.41, ICD10: E66.813, Z68.41 - Stable - Behavioral intervention 5. History of echocardiogram - ICD9: V15.89, ICD10: Z92.89 - EF 55-60%. Normal systolic function and wall motion. Hamzah Kilpatrick APRN.CNP Follow up as needed. Greater that 51% of my time was spent with [id number] conversation with the patient. I have discussed the recommended treatment, alternative therapies and other options in detail. I've discussed the best benefit and side effects of these recommended treatments. I've attempted to answer all the questions to the patient's satisfaction and understanding. After leaving the exam room, I went back into the patient's chart and coordinated care with my nurse ordering the proper testing and medicinal changes. Letter was performed with voice recognition algorithms and sent to the referring team. The chart was completed. Including the pre-exam, exam and post-exam, the total time spent in the patient's management was greater than 35 minutes. I, Hamzah Kilpatrick CNP have reviewed and agree with the information in the medical record. Hamzah Kilpatrick APRN.DOMINIQUE documented in this encounter [facility] 04-07-2025 Telephone encount er Note Message left for Marixa to return call to schedule appointment for patient. [facility] 04-07-2025 Miscellaneous Notes Formattin g of this note might be different from the original. Message left for Marixa to return call to schedule appointment for patient. Left message for patient's daughter Marixa, to return call. Received cardiac clearance from [facility] for a procedure on 04/14/25. Patient has not been seen in our office since 12/2022 and will need to be seen before getting cleared. documented in this encounter [facility] 04-06-2025 Telephone encount er Note Left message for patient's daughter Marixa, to return call. Received cardiac clearance from [facility] for a procedure on 04/14/25. Patient has not been seen in our office since 12/2022 and will need to be seen before getting cleared. [facility] 02-24-2025 Evaluation note Diagnosis Onset Date Resolution CKD (chronic kidney disease), stage IV chronic February 24, 2 025 2:27pm [facility] Work Phone: [phone]) 206-811804-23-2024 Telephone encounter Note* Telephone Encounter - Lorena Degroot - 02/26/2024 1:46 PM EDT Called patient's daughter to schedule an appointment with Dr. Layton she said she will call back toschedule [facility]04-23-2024 Miscellaneous Notes* Telephone Encounter - Lorena Degroot - 02/26/2024 1:46 PM EDT Called patient's daughter to schedule an appointment with Dr. Layton she said she will call back toschedule [facility] Note. MICRO - Microbiology PROCEDURE: Blood Culture (bacterial) [*1] SOURCE: Blood BODY SITE: COLLECTED DATE/TIME: 02/11/2024 17:48 EDT RECEIVED DATE/TIME: 02/12/2024 16:08 EDT START DATE/TIME: 02/12/2024 16:08 EDT FREE TEXT SOURCE: FINAL REPORTS Final Report [] Verified Date/Time/Personnel: 02/17/2024 16:59 EDT Blood Culture: No Growth at 5 days. PRELIMINARY REPORTS Preliminary Report [] Verified Date/Time/Personnel: 02/12/2024 16:59 EDT Culture has been received in lab and is no growth to date. Routine cultures are held for 5 days. Performing Locations *1: This test was performed at: [facility], [address] [place] [address], [id number] , [facility])02-17-2024 Note. MICRO - Microbiology PROCEDURE: Blood Culture (bacterial) [*1] SOURCE: Blood BODY SITE: COLLECTED DATE/TIME: 02/11/2024 17:50 EDT RECEIVED DATE/TIME: 02/12/2024 16:08 EDT START DATE/TIME: 02/12/2024 16:08 EDT FREE TEXT SOURCE: FINAL REPORTS Final Report [] Verified Date/Time/Personnel: 02/17/2024 16:59 EDT Blood Culture: No Growth at 5 days. PRELIMINARY REPORTS Preliminary Report [] Verified Date/Time/Personnel: 02/12/2024 16:59 EDT Culture has been received in lab and is no growth to date. Routine cultures are held for 5 days. 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 Hanna), CKD and previous ischemic stroke who presented to [facility] as an OSH transfer from [place] for presumed CVA (NIH of 14) s/p TNK. . Pt was found to have initial L facial and RUE weakness w/aphasia at SNF and brought to the hospital. Pt was also noted to be hypertensive w/SBP in 200's, started on a cardene gtt prior to TNK. Upon arrival, pt's NIH was 8, with partial hemianopia on the right, L facial palsy, RUE weakness, and tactile extinction/inattention. Anisocoria was noted that night, prompting head CT to r/o hemorrhage, in which it was negative. 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 Later it was learned from family that anisocoria has been present since prior stroke in 2021. NIH IMPROVED RE Acute, acute on chronic, unstable/uncontrolled chronic problems/diagnoses: Transient Aphasia/Right hemiparesis s/p tenecteplase recrudescence of remote L CHIEF JAILER stroke in the setting of HTN emergency 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 Remote left CHIEF JAILER territory infarct and small remote lacunar infarcts in the cerebellum and left frontal lobe. MRI revealed remote L CHIEF JAILER infarct w/small lacunar ichemia in cerebellum and L frontal lobe. No evidence of new stroke. Pt deemed to not have had a stroke, but HTN emergency with stroke recrudescence. EEG negative for seizure activity, confirmed voltage asymmetry on the left posterior quadrant aligning w/prior stroke. TTE showed no embolic source, EF of 77%. EEG showed findings supporting of a LEFT posterior-quadrant structural abnormality and are concordant with the patient's known remote left CHIEF JAILER stroke as seen on neuroimaging. 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 If there is no history of stent placement, this appearance is suggestive of severe narrowing. Moderate narrowing in the proximal left renal artery. 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 Lesion on the liver and spleen recommend outpatient follow-up with hematology and PCP Narrowing of celiac artery patient denies abdominal discomfort CKD stage 4 baseline unknown Thrombocytopenia Hematology cleared patient for discharge on February 15 abdominal US Several slightly echogenic splenic lesions, which may represent hemangiomas, but are not definitively characterized. Cannot exclude splenic metastases, lymphoma, or other splenic neoplasm. Recommend further evaluation with multiphasic MRI of the abdomen. 2. Complex cystic hepatic lesions. Recommend attention on follow-up MRI.. Left renal cyst, containing a slightly thickened septation. Recommend attention on follow-up MRI. Peripheral; blood smear Normocytic, normochromic anemia. Thrombocytopenia. Blasts and dysgranulopoiesis are not identified. No increase in schistocytes is seen. Chronic anemia Improving No signs of bleeding 02/13 HB 9.1 -->02/15 HB 9.8 Hospital Course: See discharge diagnoses list above and medication adjustments below in med rec.The patient is discharged in improved and stable condition. Consults: IP CONSULT TO CASE MANAGEMENT IP CONSULT TO NEUROLOGY IP WOUND CARE NURSE CONSULT TO EVAL IP CONSULT TO HEM/ONC IP CONSULT TO NEPHROLOGY Discharge Instructions: Diet: Dietary Orders (From admission, onward) Start Ordered 02/14/24813 Adult diet Regular Diet effective now Question: Diet type Answer: Regular 02/14/24812 Activity: as tolerated Recommended Outpatient Tests: Disposition: Patient discharged in stable condition to Home. Greater than 31 minutes spent discharging the patient and coming up with patient discharge plan. Vitals: BP 160/70 (BP Location: Right arm, Patient Position: Lying) Pulse 73 Temp 36.5 ?C (97.7 ?F) (Temporal) Resp 16 Ht 5' 3 (1.6 m) Wt 276 lb (125 kg) SpO2 95% BMI 48.89 kg/m? Pulse Ox: SpO2 Av.2 % Min: 94 % Max: 96 % Supplemental O2: O2 Flow Ra (more content not included)...[facility]04-13-2024 History of Present illness Narrative* Rosario Rose RN - 02/16/2024 3:21 PM EDT Message left at nursing facility to contact if they would like report on pt returning to them * Rosario Rose RN - 02/16/2024 3:18 PM EDT Pt with son Antonio at bedside notified of discharge status, pt and son state they would like to leaveASAP. Pt made ready to travel, pt transported to discharge via wheelchair son to transport back to [facility] * Laurie Tamez, DO - 02/16/2024 11:18 AM EDT Images from the original note were not included. Hospitalist Progress Note 02/16/2024 Subjective: Admit Date: 02/11/2024 PCP: Avelino Deleon Room#: W3-324/W3-324 B Interval History: family at bedside Denies cp sob abdominal pain n/v/d fever chills No overnight issues. Case and plan discussed with patient and bedside nurse. All questions answered. Adult diet Regular 24HR INTAKE/OUTPUT: Intake/Output Summary (Last 24 hours) at 02/16/2024 1118 Last data filed at 02/15/2024 1848 Gross per 24 hour Intake -- Output 1200 ml Net -1200 ml Past Medical History: No past medical history on file. LABS: CBC: Recent Labs 02/14/2412902/15/2442802/16/24423 WBC 6.3 5.1 5.5 RBC 3.19* 3.03* 3.27* HGB 9.5* 9.1* 9.8* HCT 29.6* 28.4* 30.4* MCV 92.8 93.7 93.0 RDW 14.3 14.4 14.1 PLT 69* 65* 73* BMP: Recent Labs 02/14/2412902/15/2442802/16/24423 NA 140 139 140 K 4.7 4.5 4.4 CL 109* 111* 110* CO2 21* BUN 52* 52* 50* CREATININE 1.69* 1.79* 1.66* GLUCOSE 123* 132* 149* CALCIUM 8.6 8.4 8.8 ANIONGAP 8 5 9 LIVER PROFILE: Recent Labs 02/14/24129 AST 30 ALT 18 BILITOT 0.7 ALKPHOS 58 PROT 6.1* PT/INR: No results for input(s): PROTIME, INR in the last 72 hours. CARDIAC ENZYMES: No results for input(s): TROPONINI in the last 72 hours. Procalcitonin: No results found for: PROCAL COVID-19 PCR: No results for input(s): COVID19 in the last 72 hours. Objective: Vitals: BP (!) 172/88 (BP Location: Right arm, Patient Position: Sitting) Pulse 64 Temp 36.8 C (98.2 F) (Temporal) Resp 16 Ht 5' 3 (1.6 m) Wt 276 lb (125 kg) SpO2 96% BMI 48.89 kg/m Pulse Ox: SpO2 Av.4 % Min: 94 % Max: 96 % Supplemental O2: O2 Flow Rate (L/min): 2 L/min Physical Exam Constitutional: Appearance: Normal appearance. HENT: Head: Normocephalic and atraumatic. Eyes: Extraocular Movements: Extraocular movements intact. Conjunctiva/sclera: Conjunctivae normal. Cardiovascular: Rate and Rhythm: Normal rate and regular rhythm. Pulmonary: Effort: Pulmonary effort is normal. No respiratory distress. Breath sounds: Normal breath sounds. Abdominal: General: Bowel sounds are normal. Palpations: Abdomen is soft. Skin: General: Skin is warm. Neurological: General: No focal deficit present. Mental Status: She is alert and oriented to person, place, and time. Medications: Scheduled PRN amLODIPine, 10 mg, Oral, Daily aspirin, 81 mg, Oral, Daily atorvastatin, 40 mg, Oral, Nightly busPIRone, 10 mg, Oral, BID chlorthalidone, 12.5 mg, Oral, Daily cloNIDine, 0.1 mg, Oral, BID doxazosin, 2 mg, Oral, BID senna-docusate sodium, 2 tablet, Oral, BID sodium chloride 0.9%, 5-40 mL, IntraVENous, q12h spironolactone, 50 mg, Oral, Daily PRN medications: acetaminophen OR acetaminophen, bisacodyl, hydrALAZINE, labetalol, ondansetronODT OR ondansetron, polyethylene glycol (PEG) 3350, sodium chloride, sodium chloride 0.9% Continuous Assessment Acute, acute on chronic, unstable/uncontrolled chronic problems/diagnoses: Transient Aphasia/Right hemiparesis s/p tenecteplase recrudescence of remote L CHIEF JAILER stroke in the setting of HTN emergency 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 Remote left CHIEF JAILER territory infarct and small remotelacunar infarcts in the cerebellum and left frontal lobe. Stable chronic problems affecting care, new non-acute diagnoses: HTN uncontrolled Nephrology following Norvasc clonidine chlorthalidone aldactone Renal artery stenosis 2021 2/ stent abdominal MRI w and w/o contrast Probable right proximal renal artery stent with associated susceptibility artifact limiting evaluation. If there is no history of stent placement, this appearance is suggestive of severe narrowing. Moderate narrowing in the proximal left renal artery. 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 Lesion on the liver and spleen recommend outpatient follow-up with hematology and PCP Narrowing of celiac artery patient denies abdominal discomfort CKD stage 4 baseline unknown Thrombocytopenia Hematology cleared patient for discharge on February 15 abdominal US Several slightly echogenic splenic lesions, which may represent hemangiomas, but are not definitively characterized. Cannot exclude splenic metastases, lymphoma, or other splenic neoplasm. Recommend further evaluation with multiphasic MRI of the abdomen. 2. Complex cystic hepatic lesions. Recommend attention on follow-up MRI.. Leftrenal cyst, containing a slightly thickened septation. Recommend attention on follow-up MRI. Peripheral; blood smear Normocytic, normochromic anemia. Thrombocytopenia. Blasts and dysgranulopoiesis are not identified. No increase in schistocytes is seen. Chronic anemia No signs of bleeding Plan As a result of the above findings & factors, the following mgmt was pursued: - am labs, replace lytes prn - PT/OT/CM/SW Advance Directive: Full Code Anticipated Discharge - Date - TBD - Location -SNF - Pending the following -clinical improvement, pending nephrology clearance for discharge. Hematology has cleared patient for discharge on February 15 Extended Emergency Contact Information Primary Emergency Contact: Jose C Jorge Mobile Relation: Son Secondary Emergency Contact: Violetta Koroma Mobile Relation: Daughter Laurie Tamez DO Division of Hospitalist Medicine [facility] * Rosario Rose RN - 02/16/2024 9:[address] Tamez notified of pt family request to go over rest results * EH Gerber - 02/16/2024 6:30 AM EDT [facility] Progress Note Subjective/ 83 y.o. year old female who we are seeing in consultation for FREDO on CKD4. NAEON BP remains suboptimally controlled Edema is trace Camacho is absent, no issues with UOP No other new issues at this time No interval changes to [facility]. All interval notes/labs/imaging reviewed. Objective/ Vitals: 02/16/24 0231 02/16/24 0551 02/16/24 0820 02/16/24 1013 BP: (!) 172/62 (!) 162/68 (!) 172/88 BP Location: Right arm Right arm Patient Position: Lying Sitting Pulse: 77 64 Resp: 16 16 Temp: 36.4 C (97.5 F) 36.8 C (98.2 F) TempSrc: Temporal Temporal SpO2: 95% 96% Weight: Height: 24HR INTAKE/OUTPUT: Intake/Output Summary (Last 24 hours) at 02/16/2024 1217 Last data filed at 02/15/2024 1848 Gross per 24 hour Intake -- Output 1200 ml Net -1200 ml Constitutional: Alert, awake, no apparent distress Head: AT NC Neck: No JVD, no thyromegaly Cardiovascular: S1, S2 without m/r/g Respiratory: CTA B without w/r/r Abdomen: soft, nt, non-distended : Camacho is absent Ext: trace LE edema Scheduled Meds:amLODIPine, 10 mg, Oral, Daily aspirin, 81 mg, Oral, Daily atorvastatin, 40 mg, Oral, Nightly busPIRone, 10 mg, Oral, BID chlorthalidone, 12.5 mg, Oral, Daily cloNIDine, 0.1 mg, Oral, BID doxazosin, 2 mg, Oral, BID senna-docusate sodium, 2 tablet, Oral, BID sodium chloride 0.9%, 5-40 mL, IntraVENous, q12h spironolactone, 50 mg, Oral, Daily Continuous Infusions: PRN Meds:.PRN medications: acetaminophen OR acetaminophen, bisacodyl, hydrALAZINE, labetalol, ondansetron ODT OR ondansetron, polyethylene glycol (PEG) 3350, sodium chloride, sodium chloride 0.9% Data/ Recent Labs 02/14/2412902/15/2442802/16/24423 WBC 6.3 5.1 5.5 HGB 9.5* 9.1* 9.8* HCT 29.6* 28.4* 30.4* MCV 92.8 93.7 93.0 PLT 69* 65* 73* Recent Labs 02/14/2412902/15/2442802/16/24423 NA 140 139 140 K 4.7 4.5 4.4 CL 109* 111* 110* CO2 * GLUCOSE 123* 132* 149* PHOS 3.7 -- -- MG 2.0 -- -- BUN 52* 52* 50* CREATININE 1.69* 1.79* 1.66* Imaging reviewed: MRA abdomen 02/15/2024: IMPRESSION: 1. Probable right proximal renal artery stent with associated susceptibility artifact limiting evaluation. If there is no history of stent placement, this appearance is suggestive of severe narrowing. 2. Moderate narrowing in the proximal left renal artery. 3. 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 4. T2 hyperintense lesions in the liver and spleen which are not fully characterized and nonspecific in etiology. Follow-up multiphase CT or MRI should be considered if these lesions have not been previously characterized. Assessment/ CKD stage 4 at baseline (N18.4) Acute ischemic stroke (I63.9) Uncontrolled hypertension (I10) Anemia Carotid artery stenosis Hx right renal stenosis (s/p stent 2019) FREDO on CKD4 (resolved) Plan/ -Scr fluctuating, likely around patient's baseline function given known hx of CKD stage 4, baselinescr likely 1.6-1.7 -BP noted, increase spironolactone to 50 mg daily -Continue with current regimen on discharge -Started on prn oral hydralazine 25 mg for SBP > 170 on discharge -MRI results reviewed: right renal artery with prior stent in place, left renal artery with moderate narrowing unchanged from prior exam, will require follow up -Rest of management per primary team From renal standpoint patient ok for discharge with close outpatient follow up with 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 Josette Morgan [facility], [facility] Office Associated attestation - Pérez Polanco MD - 02/16/2024 2:55 PM EDT I have reviewed the above assessment and plan with the FORENSIC SPECIALIST. I agree with above note. Mri findings noted. Has right sided renal artery stent. BP regimen as outlined in PA note. 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 * Ysabel Robison - 02/15/2024 2:05 PM EDT Images from the original note were not included. PHYSICAL THERAPY [facility] Treatment Note Name/MRN: Lucho Gillespie ([id number]) Date of : 1940 Age: 83 y.o. [facility]: [facility] Discharge Recommendation: Care Home Facility Equipment Needed: No Other: owns rollator Prior Level of Function ADL Assistance: Needs Assist Ambulation Assistance: Independent Transfer Assistance: Independent Assessment Patient performed bed mobility, CGA with minimal cueing for initiation of sequence, able to utilizeBUE on bed rails to assist trunk movement, and perform AROM BLE movement. Patient able to bridge hips to move side to side when on bed but required Max x 2 to assist patient hips backwards in bed Patient required increased time sitting EOB due to lightheadedness but resolved with pursed lip breathing technique. Patient performed all transfers Min A with cues for hand placement. Patient able to increase amb distance, Min A, with minimal cueing for normalized gait pattern. Recommend SNF at discharge. Subjective Patient found supine in bed with son in room. Patient states increased fatigue from test done earlier that day. Patient notes wanting to keep Purewick in during bed mobility and transfers due to increased urgency to urinate during movement. Patient left supine in bed. Pain: Slight soreness in LUE from earlier test. Medical Precautions: No active isolations Proper PPE donned/doffed in accordance with facility standards. Fall Risk: Stephen Fall Risk Score: 85 (High Risk) Precautions/Restrictions: Lines/Drains/Airways: tele, Purewick Bed alarm and chair alarm Overall Cognitive Status: WNL Overall Orientation Status: Oriented x4 Family/Caregiver Present: child(katelyn) Objective Ambulation Ambulation 1 Assistive device(s) used: rollator Assist level: Min Assist Distance (ft): 50' x 1 Quality of gait: wide ASHLY, slow sultana Patient able to perform reciprocal stepping, cued for increased sultana. Transfers/Mobility Sit to stand: Min Assist Stand to sit: Min Assist Patient able to initiate transfer but requires verbal cueing for anterior trunk lean for sit to stand, and reaching BUE back when stand to sit. Device(s) used: none Exercises Exercises Straight Leg Raise: Supine x 10 reps, BLE Quad Sets: Supine x 10 reps, BLE Heelslides: Supine x10 reps, BLE Gluteal Sets: Supine, x 10 reps, BLE Hip Abduction: Supine x 10 reps, BLE Knee Long Arc Quad: Seated, x 10 reps, BLE Ankle Pumps: Supine x 10 reps, BLE Upper Extremity: BUE shouler flexion, elbow flexion, SA punches x 10 reps each Comments: all exercises AROM Bed Mobility Supine to sit: Contact Guard Sit to supine: Contact Guard Rolling to left: Contact Guard Scooting: Contact Guard for L<>R, Max A x2 for backward scooting Patient performed bridge for side to side movement but requires Max A x2 for backward movement in bed. Balance: good sitting EOB balance, able to perform BLE LAQ, patient demoing slight L lateral shift,cued for upright trunk Good immediate standing balance with cues for upright posture. Plan Continue acute PT per plan of care. Safety/Education Safety Safety Devices in place: All fall risk precautions in place, call light within reach, left in bed, bed alarm in place, and gait belt Restraints: No Education Gait training, bed mobility, Transfer training, TherEx, Postural education Outcome Measures AM-PAC AM-PAC Inpatient Mobility Raw Score (No Stairs) : 16 JH-HLM JH-HLM Score: Walked 25 ft or more (i.e. walked outside of room) Goals Patient Stated Goal: to go home Encounter Problems Encounter Problems (Active) Balance Patient will maintain dynamic standing balance for 8 minutes with supervision in order to demonstrate decreased risk of falling. (Progressing) Start: 02/13/24 Expected End: 03/12/24 Mobility Patient will ambulate 50 feet with supervision and least restrictive device in order to improve safety and independence with mobility. (Progressing) Start: 02/13/24 Expected End: 03/12/24 Transfers Patient will perform bed mobility with modified independence in order to improve independence and prepare for out of bed mobility. (Progressing) Start: 02/13/24 Expected End: 03/12/24 Patient will complete functional transfer with least restrictive device with supervision in order to prepare for ambulation. (Progressing) Start: 02/13/24 Expected End: 03/12/24 Therapy Time Individual Co-treatment Time In 1155 Time Out 1220 Minutes 25 Timed Code Treatment Minutes: 25 Minutes (gait, TP) Ysabel Robison, SPTBora Bell HOSPICE FELLOW Associated attestation - Win Baez PT - 02/15/2024 4:05 PM EDT Recommend post-acute PT. If tolerance for activity increased, please consider rehab-level PT as an option for discharge * Laurie Tamez DO - 02/15/2024 9:45 AM EDT Images from the original note were not included. Hospitalist Progress Note 02/15/2024 Subjective: Admit Date: 02/11/2024 PCP: Avelino Deleon Room#: W3-324/W3-324 B Interval History: family at bedside Denies cp sob abdominal pain n/v/d fever chills No overnight issues. Case and plan discussed with patient and bedside nurse. All questions answered. Adult diet Regular 24HR INTAKE/OUTPUT: No intake or output data in the 24 hours ending 02/15/24 0946 Past Medical History: No past medical history on file. LABS: CBC: Recent Labs 02/13/24 0414 02/14/24 0130 02/15/24 0429 WBC 6.5 6.3 5.1 RBC 3.12* 3.19* 3.03* HGB 9.3* 9.5* 9.1* HCT 29.4* 29.6* 28.4* MCV 94.2 92.8 93.7 RDW 14.5 14.3 14.4 PLT 67* 69* 65* BMP: Recent Labs 02/13/24 0414 02/14/24 0130 02/15/24 0429 NA 139 140 139 K 4.5 4.7 4.5 CL 111* 109* 111* CO2 BUN 50* 52* 52* CREATININE 1.75* 1.69* 1.79* GLUCOSE 131* 123* 132* CALCIUM 8.4 8.6 8.4 ANIONGAP 7 8 5 LIVER PROFILE: Recent Labs 02/12/24 1128 02/13/24 0414 02/14/24 0130 AST 37 30 30 ALT 18 17 18 BILITOT 0.6 0.7 0.7 ALKPHOS 57 59 58 PROT 6.3 6.2* 6.1* PT/INR: No results for input(s): PROTIME, INR in the last 72 hours. CARDIAC ENZYMES: Recent Labs 02/12/241127 TROPONINI 0.318* Procalcitonin: No results found for: PROCAL COVID-19 PCR: No results for input(s): COVID19 in the last 72 hours. Objective: Vitals: BP 132/58 (BP Location: Right arm) Pulse 71 Temp 36.3 C (97.4 F) (Temporal) Resp 14 Ht 5' 3 (1.6 m) Wt 276 lb (125 kg) SpO2 95% BMI 48.89 kg/m Pulse Ox: SpO2 Av.7 % Min: 94 % Max: 96 % Supplemental O2: O2 Flow Rate (L/min): 2 L/min Physical Exam Constitutional: Appearance: Normal appearance. HENT: Head: Normocephalic and atraumatic. Eyes: Extraocular Movements: Extraocular movements intact. Conjunctiva/sclera: Conjunctivae normal. Cardiovascular: Rate and Rhythm: Normal rate and regular rhythm. Pulmonary: Effort: Pulmonary effort is normal. No respiratory distress. Breath sounds: Normal breath sounds. Abdominal: General: Bowel sounds are normal. Palpations: Abdomen is soft. Skin: General: Skin is warm. Neurological: General: No focal deficit present. Mental Status: She is alert and oriented to person, place, and time. Medications: Scheduled PRN amLODIPine, 10 mg, Oral, Daily aspirin, 81 mg, Oral, Daily atorvastatin, 40 mg, Oral, Nightly busPIRone, 10 mg, Oral, BID chlorthalidone, 12.5 mg, Oral, Daily cloNIDine, 0.1 mg, Oral, BID doxazosin, 2 mg, Oral, BID senna-docusate sodium, 2 tablet, Oral, BID sodium chloride 0.9%, 5-40 mL, IntraVENous, q12h spironolactone, 25 mg, Oral, Daily PRN medications: acetaminophen OR acetaminophen, bisacodyl, hydrALAZINE, labetalol, ondansetronODT OR ondansetron, polyethylene glycol (PEG) 3350, sodium chloride, sodium chloride 0.9% Continuous Assessment Acute, acute on chronic, unstable/uncontrolled chronic problems/diagnoses: Transient Aphasia/Right hemiparesis s/p tenecteplase recrudescence of remote L CHIEF JAILER stroke in the setting of HTN emergency 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 Remote left CHIEF JAILER territory infarct and small remotelacunar infarcts in the cerebellum and left frontal lobe. Stable chronic problems affecting care, new non-acute diagnoses: HTN uncontrolled Nephrology following Norvasc clonidine chlorthalidone aldactone Renal artery stenosis 12/07 stent abdominal MRI w and w/o contrast to assess for renal artery stenosis. CKD stage 4 baseline unknown Thrombocytopenia Evaluated by hematology Abdominal US Several slightly echogenic splenic lesions, which may represent hemangiomas, but are not definitively characterized. Cannot exclude splenic metastases, lymphoma, or other splenic neoplasm. Recommend further evaluation with multiphasic MRI of the abdomen. 2. Complex cystic hepatic lesions. Recommend attention on follow-up MRI.. Left renal cyst, containing a slightly thickened septation. Recommend attention on follow-up MRI. Peripheral; blood smear Normocytic, normochromic anemia. Thrombocytopenia. Blasts and dysgranulopoiesis are not identified. No increase in schistocytes is seen. Chronic anemia No signs of bleeding Plan As a result of the above findings & factors, the following mgmt was pursued: - am labs, replace lytes prn - PT/OT/CM/SW Advance Directive: Full Code Anticipated Discharge - Date - TBD - Location -SNF - Pending the following -clinical improvement, nephrology clearance HTN control Extended Emergency Contact Information Primary Emergency Contact: Jose C Jorge Mobile Relation: Son Secondary Emergency Contact: Violetta Koroma Mobile Relation: Daughter Laurie DO Jacques Division of Hospitalist Medicine [facility] * CARYN Madison CNP - 02/15/2024 9:00 AM EDT This is a non-bilable note. Following peripherally. PLT count stable. The labs we sent were normal. Smear without blasts. Awaiting MRI abdomen. Recommend follow up with previously scheduled intensive care nurse at discharge. CARYN Madison CNP * EH Gerber - 02/15/2024 8:58 AM EDT [facility] Progress Note Subjective/ 83 y.o. year old female who we are seeing in consultation for FERDO on CKD4. SUSIEEDEONDRE Feels ok Blood pressure is improving Edema is trace Camacho is absent, no issues with UOP Responding to current rx No other new issues at this time No interval changes to [facility]. All interval notes/labs/imaging reviewed. Objective/ Vitals: 02/14/24 2300 02/15/24 0212 02/15/24 0400 02/15/24 0559 BP: 132/58 BP Location: Right arm Patient Position: Pulse: 71 63 61 71 Resp: 18 14 Temp: 36.5 C (97.7 F) 36.3 C (97.4 F) TempSrc: Temporal Temporal SpO2: 94% 95% Weight: Height: 24HR INTAKE/OUTPUT: No intake or output data in the 24 hours ending 02/15/24 0858 Constitutional: Alert, awake, no apparent distress Head: AT NC Neck: No JVD, no thyromegaly Cardiovascular: S1, S2 without m/r/g Respiratory: CTA B without w/r/r Abdomen: soft, nt, non-distended : Camacho is absent Ext: trace LE edema Scheduled Meds:amLODIPine, 10 mg, Oral, Daily aspirin, 81 mg, Oral, Daily atorvastatin, 40 mg, Oral, Nightly busPIRone, 10 mg, Oral, BID chlorthalidone, 12.5 mg, Oral, Daily cloNIDine, 0.1 mg, Oral, BID doxazosin, 2 mg, Oral, BID senna-docusate sodium, 2 tablet, Oral, BID sodium chloride 0.9%, 5-40 mL, IntraVENous, q12h spironolactone, 25 mg, Oral, Daily Continuous Infusions: PRN Meds:.PRN medications: acetaminophen OR acetaminophen, bisacodyl, hydrALAZINE, labetalol, ondansetron ODT OR ondansetron, polyethylene glycol (PEG) 3350, sodium chloride, sodium chloride 0.9% Data/ Recent Labs 02/13/2441302/14/2412902/15/24 042 WBC 6.5 6.3 5.1 HGB 9.3* 9.5* 9.1* HCT 29.4* 29.6* 28.4* MCV 94.2 92.8 93.7 PLT 67* 69* 65* Recent Labs 02/13/244 02/14/2412902/15/24 042 NA 139 140 139 K 4.5 4.7 4.5 CL 111* 109* 111* CO2 * 24 24 GLUCOSE 131* 123* 132* PHOS 4.1 3.7 -- MG 1.9 2.0 -- BUN 50* 52* 52* CREATININE 1.75* 1.69* 1.79* Assessment/ CKD stage 4 at baseline (N18.4) Acute ischemic stroke (I63.9) Uncontrolled hypertension (I10) Anemia Carotid artery stenosis FREDO on CKD4 (resolved) Plan/ -Scr fluctuating, likely around patient's baseline function given known hx of CKD stage 4, cont to trend to establish baseline -BP improving, c/w current regimen -Start on prn oral hydralazine 25 mg for SBP > 170 on discharge -Follow up on results of abdominal MRI w and w/o contrast to assess for renal artery stenosis -Rest of management per primary team -From renal standpoint patient ok for discharge planning with close outpatient 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 Thank you for the consult and the opportunity to participate in the care of this patient. Please donot hesitate to call with any questions or concerns. Josette Morgan [facility], [facility] Office Associated attestation - Rebecca Rodriguez MD - 02/15/2024 3:27 PM EDT Patient was seen and examined by me. Notes reviewed and plan discussed with the PA. Agree with above note except Any variance is noted below. Renal function relatively stable. BP fluctuating. Await results of MRI for eval of renal art stenosis. Cont same Tx for HTN and add prn hydralazine. Rebecca Rodriguez MD [facility] [phone] * Ysabel Ricki - 02/14/2024 3:43 PM EDT Images from the original note were not included. PHYSICAL THERAPY [facility] Treatment Note Name/MRN: Lucho Gillespie ([id number]) Date of : 1940 Age: 83 y.o. Room/Bed: W3-324/W3-324 B Discharge Recommendation: Care Home Facility Equipment Needed: No Other: owns rollator Prior Level of Function ADL Assistance: Needs Assist Ambulation Assistance: Independent Transfer Assistance: Independent Assessment Patient able to perform all BLE exercises AROM increasing strength and mobility. Patient performed bed mobility Min A with minimal cueing for sequence, able to utilize BUE on bed rails to assist withtrunk. Patient able to scoot to EOB Min A, with cues for anterior trunk lean. Patient performed sitto stand transfer, Mod A with cues for hand placement, and increased anterior trunk shift to initiate movement. Patient cued to not hold breath during transfers. Patient able to increase amb distance, CGA with minimal cueing for proper postural positioning in rollator for safety. Recommend IP rehabat discharge. Subjective Patient found supine in bed with daughter and son present. Patient agreeable to PT. Patient reported feeling lightheaded when sitting EOB, resolved after drinking water and taking deep breaths. Patient reported some fatigue in legs while ambulating. Patient left in bed. Pain: Pt denies any current pain. Medical Precautions: No active isolations Proper PPE donned/doffed in accordance with facility standards. Fall Risk: Stephen Fall Risk Score: 85 (High Risk) Precautions/Restrictions: Lines/Drains/Airways: tele, Purewick chair alarm Overall Cognitive Status: WNL Overall Orientation Status: Oriented x4 Family/Caregiver Present: child(katelyn) Objective Ambulation Ambulation 1 Assistive device(s) used: rollator Assist level: Contact Guard Distance (ft): 50' x 1 Quality of gait: wide ASHLY, slow sultana Patient cued for postural position in rollator for increased safety awareness. Patient cued for deep breathing. Transfers/Mobility Sit to stand: Mod Assist Stand to sit: Min Assist Patient cued for hand placement and anterior trunk shift. Patient performed two STS transfers decreasing assistance level on second trial to Min A/CGA Device(s) used: none Exercises Exercises Quad Sets: Supine x 10 reps, BLE Heelslides: Supine x10 reps, BLE Gluteal Sets: Supine, x 10 reps, BLE Hip Abduction: Supine x 10 reps, BLE Knee Long Arc Quad: Seated, x 10 reps, BLE Ankle Pumps: Supine x 10 reps, BLE Upper Extremity: BUE shouler flexion, elbow flexion, SA punches x 10 reps each Comments: all exercises AROM Bed Mobility Supine to sit: Min Assist Sit to supine: Min Assist Scooting: Min Assist Patient able to initiate bed mobility with BUE support on bed rails, patient cued to assist trunk movement with L elbow. Balance: Sitting EOB, SBA, x 3 minutes with cues for pursed lip breathing. Good immediate standing balance, with little to no cueing for correct posture. Plan Continue acute PT per plan of care. Safety/Education Safety Safety Devices in place: All fall risk precautions in place, call light within reach, left in bed, bed alarm in place, and gait belt Restraints: No Education Gait training, Transfer Training, Bed Mobility, TherEx Outcome Measures AM-PAC AM-PAC Inpatient Mobility Raw Score (No Stairs) : 16 JH-HLM JH-HLM Score: Walked 25 ft or more (i.e. walked outside of room) Goals Patient Stated Goal: to go home Encounter Problems Encounter Problems (Active) Balance Patient will maintain dynamic standing balance for 8 minutes with supervision in order to demonstrate decreased risk of falling. (Progressing) Start: 02/13/24 Expected End: 03/12/24 Mobility Patient will ambulate 50 feet with supervision and least restrictive device in order to improve safety and independence with mobility. (Progressing) Start: 02/13/24 Expected End: 03/12/24 Transfers Patient will perform bed mobility with modified independence in order to improve independence and prepare for out of bed mobility. (Progressing) Start: 02/13/24 Expected End: 03/12/24 Patient will complete functional transfer with least restrictive device with supervision in order to prepare for ambulation. (Progressing) Start: 02/13/24 Expected End: 03/12/24 Therapy Time Individual Co-treatment Time In 1500 Time Out 1534 Minutes 34 Timed Code Treatment Minutes: 34 Minutes (Gait, TP) Ysabel Robison, HERO Segal, HOSPICE FELLOW * aNya Preston, CARYN - ECONOMIC DEVELOPMENT DIRECTOR - 02/14/2024 8:25 AM EDT PROGRESS NOTE. STROKE SERVICE Patient Name:Lucho Gillespie Patient : 1940 Acct: [id number] Date of Admission: 02/11/2024 [facility]: [facility] PCP: Avelino Deleon Patient location ICU Remains in the hospital due to persistent unresolved acute issues, Chief complaint: aphasia/R hemiparesis New Complain: No documented events overnight. Moved out of the ICU. SBP have been 130-170s. Afebrile. CUS and VL dup lower completed yesterday. Nursing documenting NIH of 6. Upon seeing her this morning, she was looking good awake in the bed after returning from US. Neurologically intact. Sedation:No Diet/TF:regular Camacho: No VTE prophylaxis: YES SCDs Antithrombotic therapy in first 24 hrs: YES aspirin n Statin therapy for stroke stroke patients: High intensity Anticoagulation on AF patients: N/A no history of AF Activity: PT/OT Disposition: TBD Current Hospital Medications: Current Facility-Administered Medications: acetaminophen (Tylenol) tablet 650 mg, 650 mg, Oral, q6h PRN OR acetaminophen (Tylenol) suppository 650 mg, 650 mg, Rectal, q6h PRN, Jose Cmarcelina Arceza, DO amLODIPine (Norvasc) tablet 10 mg, 10 mg, Oral, Daily, Karthikeyan Rosenberg MD, 10 mg at 02/14/24821 aspirin EC tablet 81 mg, 81 mg, Oral, Daily, Charlie Syed MD, 81 mg at 02/14/24821 atorvastatin (Lipitor) tablet 40 mg, 40 mg, Oral, Nightly, Jose Cmarcelina Rueda, DO, 40 mg at 02/13/242133 bisacodyl (Dulcolax) suppository 10 mg, 10 mg, Rectal, Daily PRN, Jose C Arceza, DO busPIRone (Buspar) tablet 10 mg, 10 mg, Oral, BID, Charlie Syed MD, 10 mg at 02/14/24821 chlorthalidone (Hygroton) tablet 12.5 mg, 12.5 mg, Oral, Daily, Farnaz Downing DO, 12.5 mg at 02/14/24821 cloNIDine (Catapres) tablet 0.1 mg, 0.1 mg, Oral, BID, Charlie Syed MD, 0.1 mg at 02/14/24 0545 hydrALAZINE (Apresoline) injection 10 mg, 10 mg, IntraVENous, q4h PRN, Charlie Syed MD, 10 mg at 02/13/24 181 labetalol (Normodyne,Trandate) injection 10 mg, 10 mg, IntraVENous, q1h PRN, Charlie Syed MD, 10 mg at 02/13/24 1737 ondansetron ODT (Zofran-ODT) disintegrating tablet 4 mg, 4 mg, Oral, q8h PRN OR ondansetron (Zofran) injection 4 mg, 4 mg, IntraVENous, q6h PRN, Jose C Rueda, DO polyethylene glycol (PEG) 3350 (Miralax) packet 17 g, 17 g, Oral, Daily PRN, Jose C Claudeza, DO, 17 g at02/13/24 213 sodium chloride 0.9 % infusion, 5-250 mL/hr, IntraVENous, PRN, Jose C Kiza, DO sodium chloride 0.9% (NS) flush 5-40 mL, 5-40 mL, IntraVENous, q12h, Jose C Kiza, DO, 10 mL at 02/13/24 2335 sodium chloride 0.9% (NS) flush 5-40 mL, 5-40 mL, IntraVENous, PRN, Jose C Kiza, DO spironolactone (Aldactone) tablet 25 mg, 25 mg, Oral, Daily, Rosario Allen Pratt, DO, 25 mg at 02/14/24 0822 Continuous Infusions: Allergies: Patient has no allergy information on record. Review of Systems Unable to perform ROS: Acuity of condition Objective: Telemetry: Arrhythmia:No Physical Examination: Patient Vitals for the past 8 hrs: BP Temp Temp src Pulse Resp SpO2 02/14/24 0543 153/64 36.3 C (97.4 F) Temporal 74 18 96 % 02/14/24 0217 (!) 130/45 36.4 C (97.5 F) Temporal 75 18 92 % I/O last 3 completed shifts: In: 3017 [P.O.:1320; I.V.:1697] Out: 1350 [Urine:1350] General Physical Examination: General:morbidly obese elderly female HEENT:Normocephalic, atraumaticl L eye ptosis CV: S1+S2, RRR, no MRG. Pulm:CTA b/l, unlabored Abdomen: Soft NT/ND. BS + Skin: petechial hemorrhages on bilateral arms into palms of hands Extremities: bilateral lower leg edema Orthopedic limitation; N/A Pulses: Intact peripherally Carotid auscultation :No bruits Neurological Examination: Higher Functions: Mental Status Exam: Level of Alertness:Awake Orientation: Normal toself, time, place Memory: Abnormal Fund of Knowledge: Normal Language: Normal Dysarthria not present Cranial Nerves: -II Visual acuity: abnormal, limited due to patient unable to perform exam -II Visualfields: partial hemianopia R lower visual field of each eye -III Pupils (~ 3 mm OD, 6 mm OU) reactive R pupil, non reactive L pupil -III-IV- Extraocular Movements: intact -Nystagmus not present -Saccades and pursuits normal -V Facial sensation: intact Corneal's Intact bilateral -VII Facial strength:intact -VIII Hearing: intact -IX-X - Gag reflex present -X Palate: intact -XI Shoulder shrug: intact -XII Tongue movement: not participant MotorExamination: Tone after evaluation of 4 limbs, the following findings applied: Normal -Bulk: normal -Muscle Stretch afterevaluation of all limbs, and axial musculature the following findings applied: Drift: absent . -Reflexes: after evaluation of 4 limbs, the following findings applied ; normal all limbs -Plantar responce: Flexor bilaterally Sensory Intact to light touch, pain / temperature, proprioception, Coordination: Arms Normal finger to nose Legs limited reliability of exam/ poor participation Tremors Resting tremor Gait abnormal, patient unable to walk due to acute circumstances / bed rest / safety concerns NIHSS 1a Level of consciousness: 0=alert; keenly responsive 1b. LOC questions: 0=Performs both tasks correctly 1c. LOC commands: 0=Performs both tasks correctly 2. Best Gaze: 0=normal 3. Visual: 1=Partial hemianopia 4. Facial Palsy: 0=Normal symmetric movement 5a. Motor left arm: 0=No drift, limb holds 90 (or 45) degrees for full 10 seconds 5b. Motor right arm: 0=No drift, limb holds 90 (or 45) degrees for full 10 seconds 6a. motor left le=No drift, limb holds 90 (or 45) degrees for full 10 seconds 6b Motor right le=No drift, limb holds 90 (or 45) degrees for full 10 seconds 7. Limb Ataxia: 0=Absent 8. Sensory: 0=Normal; no sensory loss 9. Best Language: 0=No aphasia, normal 10. Dysarthria: 0=Normal 11. Extinction and Inattention: 0=No abnormality 12. Distal motor function: 0=Normal Total: 1 NIH for visual field deficit but it is baseline form previous stroke ANCILLARY Last 24hrs Recent Results (from the past 24 hour(s)) Vascular US carotid artery duplex bilateral Collection Time: 02/13/24 11:50 AM Result Value Ref Range Right CCA prox PSV 103.7 cm/s Right CCA prox EDV 12.8 cm/s Right CCA mid PSV 88.40 cm/s Right CCA mid EDV 10.60 cm/s Right cca dist PSV 81.9 cm/s Right CCA dist EDV 8.5 cm/s Right ECA PSV 179.8 cm/s Right ECA EDV 12.60 cm/s Right ICA prox PSV 202.5 cm/s Right ICA prox EDV 31.1 cm/s Right ICA mid PSV 89.1 cm/s Right ICA mid EDV 11.2 cm/s Right ICA dist PSV 84.2 cm/s Right ICA dist EDV 17.7 cm/s Right vertebral PSV 35.3 cm/s Right vertebral EDV 10.00 cm/s Right subclavian mid PSV 74.4 cm/s Right subclavian mid EDV 9.7 cm/s Left CCA prox PSV 110.2 cm/s Left CCA prox EDV 11.2 cm/s Left CCA mid PSV 72.80 cm/s Left CCA mid EDV 9.60 cm/s Left CCA dist PSV 89.1 cm/s Left CCA dist EDV 12.8 cm/s Left ECA PSV 130.8 cm/s Left ECA EDV 0.00 cm/s Left ICA prox PSV 112.5 cm/s Left ICA prox EDV 25.1 cm/s Left ICA mid PSV 126.2 cm/s Left ICA mid EDV 20.5 cm/s Left ICA dist PSV 114.8 cm/s Left ICA dist EDV 20.5 cm/s Left vertebral PSV 64.8 cm/s Left vertebral EDV 14.60 cm/s Left subclavian mid PSV 197.8 cm/s Left subclavian mid EDV 12.6 cm/s Right ICA/CCA PSV 2.29 Left ICA/CCA PSV 1.73 CBC auto differential Collection Time: 02/14/24 1:30 AM Result Value Ref Range Auto WBC 6.3 3.6 - 10.7 10*3/uL RBC 3.19 (L) 3.80 - 5.20 10*6/uL Hemoglobin 9.5 (L) 11.7 - 16.0 g/dL Hematocrit 29.6 (L) 35.0 - 47.0 % MCV 92.8 77.0 - 99.0 fL MCH 29.8 26.0 - 34.0 pg MCHC 32.1 30.5 - 36.0 % RDW 14.3 11.5 - 15.0 % Platelets 69 (L) 140 - 440 10*3/uL MPV 13.4 (H) 9.0 - 12.7 fL nRBC 0.0 0.0 - 2.0 /100 WBCs Neutrophils Relative 76.3 38.0 - 82.0 % Lymphocytes Relative 12.8 (L) 15.0 - 45.0 % Monocytes Relative 7.5 5.0 - 13.0 % Eosinophils Relative 2.6 0.0 - 6.0 % Basophils Relative 0.3 0.0 - 2.0 % Immature Grans % 0.5 0.0 - 2.0 % Neutrophils Absolute 4.8 1.8 - 7.5 10*3/uL Lymphocytes Absolute 0.8 (L) 1.0 - 4.3 10*3/uL Monocytes Absolute 0.5 0.0 - 0.9 10*3/uL Eosinophils Absolute 0.2 0.0 - 0.5 10*3/uL Basophils Absolute 0.0 0.0 - 0.2 10*3/uL Immature Grans Absolute 0.0 <0.1 10*3/uL IPF 4 Hepatic function panel Collection Time: 02/14/24 1:30 AM Result Value Ref Range BILIRUBIN, TOTAL 0.7 0.2 - 1.3 mg/dL BILIRUBIN, DIRECT 0.0 0.0 - 0.3 mg/dL ALKALINE PHOSPHATASE 58 38 - 126 U/L AST (SGOT) 30 15 - 46 U/L ALT 18 0 - 34 U/L ALBUMIN 3.1 (L) 3.5 - 5.0 g/dL TOTAL PROTEIN 6.1 (L) 6.3 - 8.2 g/dL Basic metabolic panel Collection Time: 02/14/24 1:30 AM Result Value Ref Range SODIUM 140 135 - 145 mmol/L POTASSIUM 4.7 3.5 - 5.1 mmol/L CHLORIDE 109 (H) 98 - 107 mmol/L CARBON DIOXIDE 24 22 - 30 mmol/L UREA NITROGEN 52 (H) 7 - 17 mg/dL CREATININE 1.69 (H) 0.52 - 1.04 mg/dL GLUCOSE 123 (H) 70 - 100 mg/dL CALCIUM 8.6 8.4 - 10.4 mg/dL ANION GAP 8 3 - 13 mmol/L eGFR 30.2 (L) >60.0 mL/min/1.73m*2 Phosphorus Collection Time: 02/14/24 1:30 AM Result Value Ref Range PHOSPHORUS 3.7 2.5 - 4.5 mg/dL Magnesium Collection Time: 02/14/24 1:30 AM Result Value Ref Range MAGNESIUM 2.0 1.6 - 2.3 mg/dL Reticulocytes Collection Time: 02/14/24 1:30 AM Result Value Ref Range Retic Ct Pct 1.93 % Lactate dehydrogenase Collection Time: 02/14/24 1:30 AM Result Value Ref Range LACTATE DEHYDROGENASE 213 120 - 246 U/L Stroke Specific: Lipids: Recent Labs 02/12/24 0044 CHOL 158 TRIG 123 HDL 31* Radiology: CTH 02/11/24:There is no significant change when compared to imaging performed approximately 7 hours earlier. No acute intracranial hemorrhage. Old LEFT occipital lobe infarct. VL upper extremities 02/12/24: No evidence of deep vein or superficial vein thrombosis in the left upper extremity. Vessels demonstrate normal compressibility, color filling, and phasic and spontaneousflow. Contralateral imaging of the right subclavian vein was normal. ECHO 02/12/24: Left Ventricle: Left ventricle size is normal. Mildly increased wall thickness. Moderate septal thickening. Normal left ventricular systolic function. EF by 2D Simpsons Biplane is 77%. Normal wall motion. No thrombus or other source of embolic event is identified. Interatrial Septum: No interatrial shunt visualized on color Doppler. Right Ventricle: Right ventricle is mildly dilated. Normal systolic function. Aortic Valve: Trileaflet. No cusp thickening. Mildly calcified cusps. Mild annular calcification. Trace regurgitation. No stenosis. Left Atrium: Left atrium is mildly dilated. Aorta: Normal sized sinuses of Valsalva. Mildly dilated ascending aorta. Ao ascending diameter is 3.5 cm. MRI brain 02/12/24: 1. No acute intracranial abnormalities. 2. Remote left CHIEF JAILER territory infarct and small remote lacunar infarcts in the cerebellum and left frontal lobe. EEG 02/13/24:This routine EEG with video is abnormal. Voltage asymmetry is observed with decreased amplitudes over the LEFT posterior quadrant. No interictal epileptiform activity nor seizures are observed. Sleep architecture is seen. Normal background rhythms are observed over the right hemisphere. 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 VL carotid 02/13/24: 60-69% stenosis in the right internal carotid artery. Moderate, heterogeneous and calcific plaque in the right internal carotid artery. <50% stenosis in the left internal carotid artery. Mild, heterogeneous and calcific plaque in the left internal carotid artery. Normal antegrade flow involving the right vertebral artery. Normal antegrade flow involving the left vertebral artery. Right clavicle to bifurcation measurement: 3.5 cm. 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 No evidence of deep vein thrombosis in the left lower extremity. No evidence of deep vein or superficial vein thrombosis in the right lower extremity. Vessels demonstrate normal compressibility, color filling, and phasic and spontaneous flow. 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 uncontrolled CKD HPL uncontolled with LDL 102 Morbid obesity LISA Thrombocytopenia Bilateral carotid stenosis (R>L, R 60-69%) PLAN: -renal artery US unable to complete -abd US pending -SBP goal <160 for now, <140 in the next 2 weeks -continue and adjust home medications as needed per primary service -aspirin 81 -holding on DVT ppx at this time because of PLT count, suggest SCD and monitoring of lower duplex serially -high intensity statin -PT/OT, 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 No further inpatient neurological suggestions at this time. We will sign off. 25 minutes of my independent time was spent preparing to see the patient, obtaining/reviewing separately obtained history, completing an appropriate medical examination of the patient, ordering medications/tests/procedures, documenting clinical information on the EMR, and/or coordinatingcare. * Rosario Pratt DO - 02/13/2024 4:09 PM EDT ICU Transfer Checklist Transfer Med Reconciliation (resume home meds if able, convert to PO if able) Complete Antibiotics (name, indication, duration, convert to PO if able) None Steroid (indication, duration, convert to PO if able) None Anticipated Peavine Medications (ICU initiated) or Dose Changes and Indication Yes, indication BP regimen, prevent recurrence of HTN emergency Permanently Discontinued Home Medications and Reason for medication contraindication No Camacho Catheter (please remove if able. Note: place DC order) No Central Line (please remove if able. Note: place DC order) No Transfer Discussed with: Dr. Cooley If additional questions for ICU team within 24 hours of ICU transfer, page myself for clarifications. * Carol Brian - 02/13/2024 3:00 PM EDT Images from the original note were not included. Speech-Language Pathology SPEECH LANGUAGE PATHOLOGY [facility] Language Treatment Note Patient Name: Lucho Gillespie Evaluation Date: 02/13/2024 Date of : 1940 Admission Date: 02/11/2024 11:08 PM Age: 83 y.o. Room/Bed: T2-213/T2-213 A Subjective Patient alert and cooperative. Seen upright in bed. Visitors at bedside - daughter. Spoke with TRUONG Aden who cleared pt for treatment. Pain: RN managing pain. PPE Worn: surgical mask, gloves Objective & Assessment Language Treatment # of Activities: 1 Language Activity 1: Verbal explanation Patient completes multiple activities to increase verbal explanation. Patient is able to state why multiple sentences don't make sense and how to make them correct. Patient completes this activity independently with 100% accuracy. Patient is able to state a solution if a problem occurs from a givenscenario with 100% accuracy and minimal cueing. Patient is asked to list at least three items for each given scenario things to do on the weekend. patient requires minimal cueing, but overall is able to complete this activity with 90% accuracy. Plan & Recommendations Plan: Please re-consult if indicated. 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 Speech therapy to sign off at this time. D/C Recommendations: OP speech therapy if desired Education Education Given: communication Given To: patient and daughter Response: verbalizes understanding Goals Patient Stated Goal: To rest. 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 OCCUPATIONAL THERAPY [facility] Initial Evaluation Name/MRN: Lucho Gillespie ([id number]) Evaluation Date: 02/13/2024 Date of : 1940 Admission Date: 02/11/2024 11:08 PM Age: 83 y.o. Room/Bed: T2-213/T2-213 A Discharge Recommendation: Care Home Facility Assessment IMPRESSION: Pt presented with CVA s/p TNK. Pt previously required some assist with ADLs but IND with mobility. Pt currently requires mod assist for standing and transfers from recliner to bed, pt also required max assist for sit > supine and total assist for ADLs. OT recommending SNF Performance Deficits /Impairments: Decreased Functional Mobility, Decreased ADL status, Decreased Strength, Decreased Endurance, Decreased Balance, and Decreased High Level IADLs Prognosis: Good and Fair Decision Making: Medium Complexity Subjective Pt seated in recliner, needed back to bed for echo, agreeable to OT eval. Pain: Pt denies any current pain. Past Medical History: No past medical history on file. Past Surgical History: No past surgical history on file. Admission Diagnosis: Patient Active Problem List Diagnosis Date Noted Ischemic stroke (HCC) 02/11/2024 Medical Precautions: No active isolations Proper PPE donned/doffed in accordance with facility standards. Fall Risk: Stephen Fall Risk Score: 60 (High Risk) Precautions/Restrictions: Lines/Drains/Airways: tele, chair alarm Family/Caregiver Present: child(katelyn) Overall Cognitive Status: grossly functional, occasional cues for sequencing Overall Orientation Status: Oriented to Place and Oriented to Person Social/Functional History Patient admitted from [facility]. Assistive Equipment: rollator Prior Level of Function ADL Assistance: Needs Assist Ambulation Assistance: Independent Transfer Assistance: Independent Objective ADLs Anticipate max assist for ADLs Upper Extremity Assessment AROM: Not formally assessed this date but via observation at least WFL PROM: Not assessed this session Strength: WFL Vision: not assessed this session Hearing: normal Bed Mobility Sit to supine: Max Assist Transfers/Functional Mobility Sit to stand: Mod Assist Stand to sit: Mod Assist Stand step: Min Assist Device(s) used: front wheeled walker AM-PAC AM-PAC Inpatient Daily Activity Raw Score: 14 ADL Inpatient CMS G-Code Modifier: CK Plan Pt would benefit from skilled acute OT services to address Strengthening, Balance Training, Functional Mobility Training, Endurance Training, Safety Education and Training, Patient/Caregiver Training, Equipment Evaluation/Education, Self-Care/ADL Training, and Cognitive/Perceptual Training. Frequency: 4x/week for 4 weeks Barriers: Limited safety awareness, Limited insight into deficits, Decreased endurance, and Lower extremity weakness Prognosis: good Safety/Education Safety Safety Devices in place: All fall risk precautions in place, call light within reach, left in bed, and nurse notified Restraints: N/A Education Education Given To: patient Education Provided: OT Role, Plan of Care, and Discharge Recommendations Education Method: Verbal Barriers to Learning: Education Outcome: Continued Education Needed Goals Patient Stated Goal: home Encounter Problems Encounter Problems (Active) Balance Patient will maintain static standing balance for 3 minutes with CGA in order to demonstrate decreased risk of falling. Start: 02/13/24 Expected End: 03/12/24 Dressings Lower Extremities Patient will dress lower body with min assist Start: 02/13/24 Expected End: 03/12/24 Grooming Patient will complete daily grooming tasks with set up Start: 02/13/24 Expected End: 03/12/24 Mobility Patient will demonstrate functional ambulation with CGA and LRD Start: 02/13/24 Expected End: 03/12/24 Toileting Patient will complete toileting tasks at bedside commode with CGA. Start: 02/13/24 Expected End: 03/12/24 Transfers Patient will complete functional transfer with least restrictive device with CGA in order to prepare for ambulation. Start: 02/13/24 Expected End: 03/12/24 Patient will perform bed mobility with min assist in order to improve independence and prepare for out of bed mobility. Start: 02/13/24 Expected End: 03/12/24 Therapy Time Individual Co-treatment Time In 1100 Time Out 1108 Minutes 8 Hermelinda Haney OT Patient's Occupational Therapy Plan of Care supervision is transferred to a [facility] Therapy Services Occupational Therapist. Goals and/or treatment plan was established in collaboration with patient/family/other representatives. * Rosario Allen Santa, DO - 02/13/2024 11:45 AM EDT ICU Progress Note Name: Lucho Gillespie : 1940(83 y.o.) Date: 02/13/24 Team: MICU Attending: Dr. Robby Rosenberg Subjective: Hospital Summary: Lucho Gillespie is an 83yo female w/PMHx of hypertension, renal artery stenosis, CKD and previousischemic stroke who presented to [facility] as an OSH transfer from [place] for presumed CVA (NIH of 14) s/p TNK. Pt was found to have initial L facial and RUE weakness w/aphasia at SNF and brought to the h ospital. Pt was also noted to be hypertensive w/SBP in 200's, started on a cardene gtt prior to TNK. Upon arrival, pt's NIH was 8, with partial hemianopia on the right, L facial palsy, RUE weakness, and tactile extinction/inattention. Anisocoria was noted that night, prompting head CT to r/o hemorrhage, in which it was negative. 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 Later it was learned from family that anisocoria has been present since prior stroke in 2021. Interval Events: Re-evaluation of pt shows resolution of facial weakness, UE weakness. Remaining are aphasia, improved, and her baseline anisocoria. Pt's LUE also became erythemetous w/purple discoloration, sensationin tact and painless, but venous duplex US of LUE was negative. MRI revealed remote L CHIEF JAILER infarct w/small lacunar ichemia in cerebellum and L frontal lobe. No evidence of new stroke. Pt deemed to not have had a stroke, but HTN emergency with stroke recrudescence.EEG negative for seizure activity, confirmed voltage asymmetry on the left posterior quadrant aligning w/prior stroke. TTE showed no embolic source, EF of 77%. US of Carotid Artery BL ordered, but not completed. Pt's HTN improved in that SBP<180 off Cardene gtt. Resumed much of her home medication, added amlodipine 10mg, and today adding chlorthalidone but 12.5mg daily rather than 25mg every other day. Thrombocytopenia noted, per family, this was noted in nephrology labs a few weeks ago OP and hematology referral was placed. Neurology ordered peripheral smear and duplex US of BL LE to r/o consumptive coagulopathy. Currently not on prophylaxis for DVT as a result. Pt stable and is cleared for transfer to [facility] for further HTN regimen and thrombocytopenia workup. Scheduled Meds:amLODIPine, 10 mg, Oral, Daily aspirin, 81 mg, Oral, Daily atorvastatin, 40 mg, Oral, Nightly busPIRone, 10 mg, Oral, BID chlorthalidone, 12.5 mg, Oral, Daily cloNIDine, 0.1 mg, Oral, BID sodium chloride 0.9%, 5-40 mL, IntraVENous, q12h spironolactone, 25 mg, Oral, Daily Continuous Infusions: Objective: Last Vitals: BP MAP (!) 170/58 (02/13/24 1000) 91 (02/13/24 1000) Arterial BP MAP Temp 36.8 C (98.3 F) (02/13/24 0800) Pulse 66 (02/13/24 1000) Resp 17 (02/13/24 1000) SpO2 98 % (02/13/24 1000) Weight BMI There is no height or weight on file to calculate BMI. I/O: 02/11 0700 - 02/12 0659 In: 1915 [P.O.:400; I.V.:1515] Out: 1220 [Urine:1220] Ventilator: Oxygen Delivery: O2 Flow Rate (L/min): 2 L/min Invasive Lines / Tubes / Drains: Peripheral IV 02/11/24 Anterior;Distal;Right Wrist (Active) Number of days: 1 Peripheral IV 02/12/24 Anterior;Right Forearm (Active) Number of days: 1 External Urinary Catheter (Active) Number of days: 1 Central Line Indication: NA - patient does not have a central line Camacho Indications: NA - patient does not have a Camacho catheter Restraints: NA - patient is not restrained. Wounds: Constitutional: General Appearance []WDWN [x]Obese []Cachectic []Thin []Ill Eyes: Inspection of Pupils/Irises Pupils round and react: []Yes [x]No , anisocoria present Sclera: []Icteric [x]Non-Icteric Inspection of Conjunctiva/Lids Conjunctiva: []Injected [x]Non-Injected Lids: [x]Intact []Lesion Present ENT/Mouth: External Inspection of ears/nose [x] Normal [] Scar/Lesion/Mass Inspection of teeth/lips/gums Dentition: []Ione Teeth []Dentures Lips/Gums: []Intact []Lesion Present Mucosa: [][place] []Moist []Dry Neck: External Appearance Overall Appearance: [x]Normal []Lesion/Mass/Crepitus Present Trachea midline: [x]Yes []No Thyroid []Normal []Enlarged []Tender []Mass []Absent Respiratory: Respiratory effort []Labored [x]Non-Labored [] Mechanically-Ventilated Auscultation [x]Clear []Crackles []Wheezes []Rhonchi Cardiovascular: Auscultation Rate: [x]Regular []Irregular []Tachycardia []Bradycardia Rhythm: [x]Regular []Irregular Murmur: []Present []Absent Extremities Peripheral Edema: [x]Present []Absent Varicosities: []Present []Absent Gastrointestinal: Abdomen Palpation: [x]Soft []Firm []Tender [x]Non-Tender []Distended [x]Non-distended Mass: []Present [x]Absent Bowel Sounds: []Present []Absent Hernia: []Present []Absent Liver/Spleen: []Hepatosplenomegaly [x]Organomegaly Absent Musculoskeletal: Inspection of Digits and Nails Cyanosis: []Present [x]Absent Clubbing: []Present []Absent Ischemia: []Present [x]Absent Infection: []Present [x]Absent Extremities DE JESUS Equally: Except ([]RUE []RLE []LUE []LLE) Strength/Tone: Intact and Normal ([]RUE []RLE []LUE []LLE) Skin: Inspection [x]Normal [x]Rash, erythema of BL UE from elbow to fingertips []Lesion []Ulcer Palpation [x]Warm []Cool []Dry []Clammy []Nodules []Induration []Skin-tightening Cap-Refill: [] <3 sec [] >3 seconds (delayed) Neurologic: GCS EYE: 4 - Opens spontaneously GCS MOTOR: 6 - Obeys commands for movement GCS VERBAL: 5 - Oriented to person, place, time Total GCS: 15 [x] Sensation grossly intact Psych: Mental Status Alert: [x]Yes [] No Oriented: []x0 []X1 []X2 [x]x3 Mood/Affect [x]Normal []Flat []Agitated []Depressed []Anxious []Calm []Sedated [x]NAD Select Labs within last 24 hours- BMP: Recent Labs 02/12/244302/12/24112702/13/24 041 NA 139 137 139 K 4.6 4.4 4.5 CL 108* 107 111* CO2 24 22 21* BUN 54* 53* 50* CREATININE 2.13* 2.02* 1.75* CALCIUM 8.8 8.5 8.4 MG 1.7 -- 1.9 PHOS 3.6 -- 4.1 LFTs: Recent Labs 02/12/244302/12/248 02/13/24 0414 AST 27 37 30 ALT 19 18 17 PROT 6.7 6.3 6.2* ALBUMIN 3.5 3.3* 3.1* BILITOT 0.6 0.6 0.7 ALKPHOS 64 57 59 Glucose: Recent Labs 02/12/244302/12/24 1128 02/13/24 0414 GLUCOSE 159* 138* 131* Procal: No results for input(s): PROCAL in the last 72 hours. CBC: Recent Labs 02/12/244302/13/24 0414 WBC 7.2 6.5 HGB 10.2* 9.3* HCT 31.4* 29.4* PLT 74* 67* MCV 91.5 94.2 RDW 14.3 14.5 ABGs: No results for input(s): PHART, [id number], PO2ART, XPF9CNX, SO2ART, [id number] in thelast 72 hours. Lactic Acid: No results for input(s): LACTATE in the last 72 hours. INR: No results for input(s): INR in the last 72 hours. Cardiac Injury Profile: Recent Labs 02/12/24 0408 02/12/24 0705 02/12/24 1128 TROPONINI 0.245* 0.341* 0.318* Labs in Last 3 months: No results found for: TSH, VITD25, PSA, INR, GLUF Microbiology- Urine Cx: No results found for: URINECX Blood Cx: No results found for: BLOODCX Sputum Cx: No results found for: RESPCULT Gram Stain: No results found for: LABGRAM PNA PCR: No results found for: HUMANMETAPNE COVID19: No results found for: COVID19 Legionella Ag: No results found for: LEGIONELLAPN Strep Ag: No results for input(s): STREPPNEUMO in the last 72 hours. Imaging- MRI brain w/o contrast 02/11 IMPRESSION: 1. No acute intracranial abnormalities. 2. Remote left CHIEF JAILER territory infarct and small remote lacunar infarcts in the cerebellum and left frontal lobe. CT Head wo contrast 02/10 IMPRESSION: There is no significant change when compared to imaging performed approximately 7 hours earlier. Noacute intracranial hemorrhage. Old LEFT occipital lobe infarct. Assessment and Plan: Principal Problem: Ischemic stroke (HCC) Assessment: Stroke recrudescence 2/2 HTN emergency HTN emergency Hx of renal artery stenosis s/p stent Bruising from BP cuff 2/2 TNK Hypertropinemia 2/2 demand ischemia Thrombocytopenia Anisocoria 2/2 prior stroke Plan: NCC signed off, pt did not experience stroke as shown by MRI. Negative EEG for new changes as well.TTE negative for embolic source. Pt experienced symptoms that aligned w/prior stroke location. Stroke recrudescence 2/2 HTN emergency, resolved after BP control. Resume ASA 81mg. Watch for duplex BL carotid artery US. Hold prophylaxis for DVT at this time given thrombocytopenia. Peripheral smear ordered by NCC, watch for results. Consult heme/onc for further investigation and management regarding thrombocytopenia.BL LE duplex US ordered to r/o consumptive coagulopathy. Watch for results. Goal SBP<180, SBP<110. Add home chlorthalidone at 12.5mg daily instead of 25mg every other day. Increase amlodipine to 10mg. Continue current BP regimen: amlodipine 10mg, chlorthalidone 12.5mg,aldactone 25mg, clonidine 0.1. PRN's Lopressor and Hydralazine. Continue to hold home Cardura 2mg BID Renal duplex US ordered r/o thrombosis of stent. LUE duplex US negative for DVT. Continue to monitor improvement in LUE erythema. Pt on regular diet Renal function improving, Cr 2.13 ->1.75 CTM arms, BP cuff creating bruising BL arms s/p TNK. GI Prophylaxis: NA DVT Prophylaxis: SCDs Disposition: Transfer to [facility] Critical Care Time: Total critical care time caring for this patient with life threatening, unstable organ failure, including direct patient contact, management of life support systems, review of data including imaging and labs, discussions with other team members and physicians, excluding procedures. Associated attestation - Robby Rosenberg MD - 02/13/2024 5:32 PM EDT I have personally seen the patient and examined along with the resident. I personally obtained the mayen and relevent portions of the history and performed physical exam. I reviewed the chart includingMAR, labs, and radiology and agree with the patient's plan of action as discussed with the resident. This note reflects my plan of care as I have edited the note to reflect my findings and my assessment and plan. ROS documentation was reviewed and negative unless otherwise stated in HPI. Chief Complaint: Acute ischemic stroke Additional pertinent interval history, ROS, and physical exam findings: Patient seen and examined. Awake, alert, oriented. Feeling improved. Denies further complaints. Moving extremities equally. Non-labored breathing. Assessment and Plan: Hypertensive Emergency in setting of prior strokes Transient aphasia/R hemiparesis s/p TNK Hx Remote L CHIEF JAILER stroke Thrombocytopenia CKD HLD Morbid obesity LISA - patient doing well today - US pending to rule out thrombosis - Renal artery US pending to evaluate stent patency - SBP goal <160 - continue home chlorthalidone daily, increase amlodipine, continue aldactone and clonidine. PRN meds available. - continue ASA/Statin - holding DVT ppx given thrombocytopenia - Hem/onc consult for thrombocytopenia and follow up. - PT/OT/speech eval - needs outpatient event monitoring to rule out etiologies such as Afib - outpatient neurology follow up. Code Status: Full Code Disposition: Transfer to [facility] Time spent preparing to see the patient, obtaining/reviewing separately obtained history, completing an appropriate medical examination of the patient, ordering medications/tests/procedures, documenting clinical information on the EMR, and/or coordinating care is a subsequent visit: 50 minutes (Level III). Robby Rosenberg MD Pulmonary and Critical Care Medicine Attending Pager #[phone] * Lo Reddy, PT - 02/13/2024 10:44 AM EDT Images from the original note were not included. PHYSICAL THERAPY [facility] Initial Evaluation Name/MRN: Lucho Gillespie ([id number]) Evaluation Date: 02/13/2024 Date of : 1940 Admission Date: 02/11/2024 11:08 PM Age: 83 y.o. Room/Bed: T2-213/T2-213 A Discharge Recommendation: Care Home Facility Equipment Needed: No Assessment IMPRESSION: 83 y.o. pt admitted to [facility] for ischemic stroke s/p TNK. They were Mod A for bed mobility, Mod A for transfers, and CGA - Min A for ambulation. She if from [facility], will probably need more assist at discharge. Would recommend SNF at discharge. Diagnosis: ischemic stroke s/p TNK Prognosis: fair Performance Deficits /Impairments: Decreased Functional Mobility, Decreased Strength, Decreased Safety Awareness, Decreased Endurance, and Decreased Balance Decision Making: Medium Complexity Subjective Pt supine in bed. Agreeable to PT session. Cleared by nursing Pain: Pt denies any current pain. Past Medical History: No past medical history on file. Past Surgical History: No past surgical history on file. Admission Diagnosis: Patient Active Problem List Diagnosis Date Noted Ischemic stroke (HCC) 02/11/2024 Medical Precautions: No active isolations Proper PPE donned/doffed in accordance with facility standards. Fall Risk: Stephen Fall Risk Score: 60 (High Risk) Precautions/Restrictions: Lines/Drains/Airways: PIV, tele Family/Caregiver Present: child(katelyn) Overall Cognitive Status: Exceptions - Following commands: follows one step commands with increased time and follows one step commands with repetition - Safety judgement: decreased awareness of need for assistance and decreased awareness of need for safety - Insights: decreased awareness of deficits Overall Orientation Status: Oriented to Person (+hospital) Vision: R sided partial visual cut from previous stroke, pt denies increased difficulty with sight Hearing: normal Social/Functional History Patient admitted from [facility]. Assistive Equipment: rollator Prior Level of Function ADL Assistance: Needs Assist Ambulation Assistance: Independent Transfer Assistance: Independent Objective Lower Extremity Assessment AROM: WFL PROM: WFL Strength: WFL (grossly 3+/5 overall) Bed Mobility: Supine to sit: Mod Assist HOB elevated, BLE and trunk assist. Assist scooting to EOB prior to stand Transfers Sit to stand: Mod Assist Stand to sit: Mod Assist EOB x1, commode x1 both at FWW, cues for hand placement Ambulation Ambulation 1 Assistive device(s) used: front wheeled walker Assist level: Contact Guard, Min Assist Distance (ft): 10' + 10' Quality of gait: antalgic, shuffling, wide ASHLY, slow sultana Sensation: WFL Outcome Measures AM-PAC How much HELP from another person do you currently need Turning from your back to your side while in a flat bed without using bedrails?: None Moving from lying on your back to sitting on the side of a flat bed without using bedrails?: A Little Moving to and from a bed to a chair (including a wheelchair)?: A Little Standing up from a chair using your arms (wheelchair or bedside chair)?: A Lot Walking in a hospital room?: A Little Stair climbing assessed?: No AM-PAC Inpatient Mobility Raw Score (No Stairs) : 15 JH-HLM JH-HLM Score: Walked 10 steps or more (i.e. walked to restroom) Plan Pt would benefit from skilled acute PT services to address Strengthening, Balance Training, Functional Mobility Training, Endurance Training, Gait Training, Stair Training, Safety Education and Training, Patient/Caregiver Training, and Equipment Evaluation/Education. Frequency: 5x/week for 4 weeks Barriers: Upper extremity weakness and Lower extremity weakness Safety/Education Safety Safety Devices in place: call light within reach, left in chair, chair alarm in place, gait belt, and nurse notified Restraints: No Education Education Given To: patient Education Provided: PT Role, PT Goals, Plan of Care, Transfer Training, Equipment, Fall Prevention Education, and Benefits of Increasing Activity Education Method: Verbal Barriers to Learning: Cognition Education Outcome: Continued Education Needed Goals Patient Stated Goal: to go home Encounter Problems Encounter Problems (Active) Balance Patient will maintain dynamic standing balance for 8 minutes with supervision in order to demonstrate decreased risk of falling. Start: 02/13/24 Expected End: 03/12/24 Mobility Patient will ambulate 50 feet with supervision and least restrictive device in order to improve safety and independence with mobility. Start: 02/13/24 Expected End: 03/12/24 Transfers Patient will perform bed mobility with modified independence in order to improve independence and prepare for out of bed mobility. Start: 02/13/24 Expected End: 03/12/24 Patient will complete functional transfer with least restrictive device with supervision in order to prepare for ambulation. Start: 02/13/24 Expected End: 03/12/24 Therapy Time Individual Co-treatment Time In 0855 Time Out 0930 Minutes 35 Timed Code Treatment Minutes: (mod eval, 1 FA) Lo Reddy PT Patient's Physical Therapy Plan of Care supervision is transferred to a [facility] Therapy Services Physical Therapist. Goals and/or treatment plan was established in collaboration with patient/family/other representatives. * Naya Preston APRN - ECONOMIC DEVELOPMENT DIRECTOR - 02/13/2024 8:06 AM EDT PROGRESS NOTE. STROKE SERVICE Patient Name:Lucho Gillespie Patient : 1940 Acct: [id number] Date of Admission: 02/11/2024 Room/Bed: T2-213/T2-213 A PCP: Avelino Deleon Patient location ICU Remains in the hospital due to persistent unresolved acute issues, Chief complaint: aphasia/R hemiparesis New Complain: No documented events overnight. SBP have been 140-180's. Afebrile. MRI completed yesterday. Nursingdocumenting NIH of 4. Upon seeing her this morning, she states that she is feeling good. Denies anynew complaints. She was moving all extremities equally. She does have a R lower quadrant visual field cut and L pupil is 6mm and un reactive which she states is normal. Sedation:No Diet/TF:regular Camacho: No VTE prophylaxis: YES SCDs Antithrombotic therapy in first 24 hrs: YES aspirin n Statin therapy for stroke stroke patients: High intensity Anticoagulation on AF patients: N/A no history of AF Activity: PT/OT Disposition: TBD Current Hospital Medications: Current Facility-Administered Medications: acetaminophen (Tylenol) tablet 650 mg, 650 mg, Oral, q6h PRN OR acetaminophen (Tylenol) suppository 650 mg, 650 mg, Rectal, q6h PRN, Jose C Rueda DO amLODIPine (Norvasc) tablet 5 mg, 5 mg, Oral, Daily, Rosario Pratt DO, 5 mg at 02/12/241857 aspirin EC tablet 81 mg, 81 mg, Oral, Daily, Charlie Syed MD, 81 mg at 02/12/241857 atorvastatin (Lipitor) tablet 40 mg, 40 mg, Oral, Nightly, Jose C Rueda DO bisacodyl (Dulcolax) suppository 10 mg, 10 mg, Rectal, Daily PRN, Jose C Rueda DO busPIRone (Buspar) tablet 10 mg, 10 mg, Oral, BID, Charlie Syed MD, 10 mg at 02/12/242009 cloNIDine (Catapres) tablet 0.1 mg, 0.1 mg, Oral, BID, Charlie Syed MD, 0.1 mg at 02/13/24601 hydrALAZINE (Apresoline) injection 10 mg, 10 mg, IntraVENous, q4h PRN, Charlie Syed MD, 10 mg at 02/12/24 180 labetalol (Normodyne,Trandate) injection 10 mg, 10 mg, IntraVENous, q1h PRN, Charlie Syed MD, 10 mg at 02/12/24 1725 ondansetron ODT (Zofran-ODT) disintegrating tablet 4 mg, 4 mg, Oral, q8h PRN OR ondansetron (Zofran) injection 4 mg, 4 mg, IntraVENous, q6h PRN, Jose C Kiza, DO polyethylene glycol (PEG) 3350 (Miralax) packet 17 g, 17 g, Oral, Daily PRN, Jose C Kiza, DO sodium chloride 0.9 % infusion, 5-250 mL/hr, IntraVENous, PRN, Jose C Kiza, DO sodium chloride 0.9 % infusion, 50 mL/hr, IntraVENous, Continuous, Charlie Syed MD, Last Rate: 50 mL/hr at 02/12/24 162, 50 mL/hr at 02/12/24 162 sodium chloride 0.9% (NS) flush 5-40 mL, 5-40 mL, IntraVENous, q12h, Jose C Kiza, DO, 10 mL at 02/12/24 2333 sodium chloride 0.9% (NS) flush 5-40 mL, 5-40 mL, IntraVENous, PRN, Jose C Kiza, DO spironolactone (Aldactone) tablet 25 mg, 25 mg, Oral, Daily, Rosario Pratt, DO, 25 mg at 02/12/242009 Continuous Infusions: sodium chloride, 50 mL/hr, Last Rate: 50 mL/hr (02/12/241621) Allergies: Patient has no allergy information on record. Review of Systems Unable to perform ROS: Acuity of condition Objective: Telemetry: Arrhythmia:No Physical Examination: Patient Vitals for the past 8 hrs: BP Temp Temp src Pulse Resp SpO2 02/13/24 0700 (!) 184/36 -- -- 66 25 99 % 02/13/24 0600 (!) 188/58 -- -- 72 (!) 32 97 % 02/13/24 0500 (!) 164/5 -- -- 71 (!) 26 96 % 02/13/24 0400 160/51 36.5 C (97.7 F) Temporal 86 13 98 % 02/13/24 0300 (!) 146/46 -- -- 68 (!) 27 98 % 02/13/24 0230 (!) 159/47 -- -- 74 (!) 29 97 % 02/13/24 0200 (!) 153/49 -- -- 76 24 97 % 02/13/24 0100 (!) 146/42 -- -- 77 19 98 % I/O last 3 completed shifts: In: 3378.8 [P.O.:1400; I.V.:1978.8] Out: 1500 [Urine:1500] General Physical Examination: General:morbidly obese elderly female HEENT:Normocephalic, atraumaticl L eye ptosis CV: S1+S2, RRR, no MRG. Pulm:CTA b/l, unlabored Abdomen: Soft NT/ND. BS + Skin: petechial hemorrhages on bilateral arms into palms of hands Extremities: bilateral lower leg edema Orthopedic limitation; N/A Pulses: Intact peripherally Carotid auscultation :No bruits Neurological Examination: Higher Functions: Mental Status Exam: Level of Alertness:Awake Orientation: Normal toself, time, place Memory: Abnormal Fund of Knowledge: Normal Language: Normal Dysarthria not present Cranial Nerves: -II Visual acuity: abnormal, limited due to patient unable to perform exam -II Visualfields: partial hemianopia R lower visual field of each eye -III Pupils (~ 3 mm OD, 6 mm OU) reactive R pupil, non reactive L pupil -III-IV- Extraocular Movements: intact -Nystagmus not present -Saccades and pursuits normal -V Facial sensation: intact Corneal's Intact bilateral -VII Facial strength:intact -VIII Hearing: intact -IX-X - Gag reflex present -X Palate: intact -XI Shoulder shrug: intact -XII Tongue movement: not participant MotorExamination: Tone after evaluation of 4 limbs, the following findings applied: Normal -Bulk: normal -Muscle Stretch afterevaluation of all limbs, and axial musculature the following findings applied: Drift: absent . -Reflexes: after evaluation of 4 limbs, the following findings applied ; normal all limbs -Plantar responce: Flexor bilaterally Sensory Intact to light touch, pain / temperature, proprioception, Coordination: Arms Normal finger to nose Legs limited reliability of exam/ poor participation Tremors Resting tremor Gait abnormal, patient unable to walk due to acute circumstances / bed rest / safety concerns NIHSS 1a Level of consciousness: 0=alert; keenly responsive 1b. LOC questions: 0=Performs both tasks correctly 1c. LOC commands: 0=Performs both tasks correctly 2. Best Gaze: 0=normal 3. Visual: 1=Partial hemianopia 4. Facial Palsy: 0=Normal symmetric movement 5a. Motor left arm: 0=No drift, limb holds 90 (or 45) degrees for full 10 seconds 5b. Motor right arm: 0=No drift, limb holds 90 (or 45) degrees for full 10 seconds 6a. motor left le=No drift, limb holds 90 (or 45) degrees for full 10 seconds 6b Motor right le=No drift, limb holds 90 (or 45) degrees for full 10 seconds 7. Limb Ataxia: 0=Absent 8. Sensory: 0=Normal; no sensory loss 9. Best Language: 0=No aphasia, normal 10. Dysarthria: 0=Normal 11. Extinction and Inattention: 0=No abnormality 12. Distal motor function: 0=Normal Total: 1 NIH for visual field deficit but it is baseline form previous stroke ANCILLARY Last 24hrs Recent Results (from the past 24 hour(s)) ECG 12 lead Collection Time: 02/12/24 8:33 AM Result Value Ref Range Heart Rate 72 bpm QRSD Interval 96 ms QT Interval 415 ms QTC Interval 453 ms P [place] 40 degrees QRS [place] -1 degrees T Wave [place] 100 degrees [place] Interval 191 ms Transthoracic echocardiogram (TTE) complete with contrast, bubble, strain, and 3D PRN Collection Time: 02/12/24 9:39 AM Result Value Ref Range IVSd 1.3 (A) 0.6 - 0.9 cm LVIDd 5.9 (A) 3.9 - 5.3 cm LVIDs 3.4 cm LVOT Diameter 2.3 cm LVPWd 1.1 (A) 0.6 - 0.9 cm EF BP 77 55 - 100 % LV Ejection Fraction A2C 78 % LV Ejection Fraction A4C 72 % LV EDV A2C 142 mL LV EDV A4C 125 mL LV EDV BP 139 (A) 56 - 104 mL LV ESV A2C 31 mL LV ESV A4C 34 mL LV ESV BP 32 19 - 49 mL LVOT Cardiac Output 7.8 liter/minute LVOT Peak Gradient 4 mmHg LVOT Mean Gradient 2 mmHg LVOT SV 106.3 ml LVOT Peak Velocity 1.0 m/s LVOT VTI 25.6 cm RV Longitudinal Dimension 7.3 cm RV Mid Dimension 2.5 cm RV Basal Dimension 4.3 cm RV Free Wall Peak S' 18 cm/s LA Diameter 4.6 cm LA Volume 4C 98 (A) 22 - 52 mL RA Area 4C 45.8 mL RA Area 4C 44.5 mL AV Area by Peak Velocity 2.7 cm2 AV Area by VTI 2.6 cm2 AV AT 125.59 ms AV Peak Gradient 9 mmHg AV Mean Gradient 5 mmHg AV Peak Velocity 1.5 m/s AV Mean Velocity 1.1 m/s AV VTI 40.5 cm MV A Velocity 1.62 m/s MV E Wave Deceleration Time 235.4 ms MV E Velocity 1.06 m/s LV E' Lateral Velocity 4 cm/s LV E' Septal Velocity 4 cm/s TAPSE 2.7 1.7 cm Ascending Aorta 3.5 cm IVC Diameter 1.6 cm Aortic Root 3.5 cm Fractional Shortening 2D 42 28 - 44 % LV RWT Ratio 0.37 LV Mass 2D 305.5 (A) 67 - 162 g MV E/A 0.65 E/E' Ratio (Averaged) 26.50 E/E' Lateral 26.50 E/E' Septal 26.50 LVOT Area 4.2 cm2 LA/AO Root Ratio 1.31 AV Velocity Ratio 0.67 LVOT:AV VTI Index 0.63 Troponin, with Serial Reflex Collection Time: 02/12/24 11:28 AM Result Value Ref Range TROPONIN I 0.318 (HH) <0.034 ng/mL Comprehensive metabolic panel Collection Time: 02/12/24 11:28 AM Result Value Ref Range SODIUM 137 135 - 145 mmol/L POTASSIUM 4.4 3.5 - 5.1 mmol/L CHLORIDE 107 98 - 107 mmol/L CARBON DIOXIDE 22 22 - 30 mmol/L ANION GAP 8 3 - 13 mmol/L UREA NITROGEN 53 (H) 7 - 17 mg/dL CREATININE 2.02 (H) 0.52 - 1.04 mg/dL GLUCOSE 138 (H) 70 - 100 mg/dL CALCIUM 8.5 8.4 - 10.4 mg/dL AST (SGOT) 37 15 - 46 U/L ALT 18 0 - 34 U/L ALKALINE PHOSPHATASE 57 38 - 126 U/L ALBUMIN 3.3 (L) 3.5 - 5.0 g/dL BILIRUBIN, TOTAL 0.6 0.2 - 1.3 mg/dL TOTAL PROTEIN 6.3 6.3 - 8.2 g/dL eGFR 24.4 (L) >60.0 mL/min/1.73m*2 CBC auto differential Collection Time: 02/13/24 4:14 AM Result Value Ref Range Auto WBC 6.5 3.6 - 10.7 10*3/uL RBC 3.12 (L) 3.80 - 5.20 10*6/uL Hemoglobin 9.3 (L) 11.7 - 16.0 g/dL Hematocrit 29.4 (L) 35.0 - 47.0 % MCV 94.2 77.0 - 99.0 fL MCH 29.8 26.0 - 34.0 pg MCHC 31.6 30.5 - 36.0 % RDW 14.5 11.5 - 15.0 % Platelets 67 (L) 140 - 440 10*3/uL MPV 13.2 (H) 9.0 - 12.7 fL nRBC 0.0 0.0 - 2.0 /100 WBCs Neutrophils Relative 78.9 38.0 - 82.0 % Lymphocytes Relative 11.6 (L) 15.0 - 45.0 % Monocytes Relative 6.5 5.0 - 13.0 % Eosinophils Relative 2.2 0.0 - 6.0 % Basophils Relative 0.5 0.0 - 2.0 % Immature Grans % 0.3 0.0 - 2.0 % Neutrophils Absolute 5.1 1.8 - 7.5 10*3/uL Lymphocytes Absolute 0.8 (L) 1.0 - 4.3 10*3/uL Monocytes Absolute 0.4 0.0 - 0.9 10*3/uL Eosinophils Absolute 0.1 0.0 - 0.5 10*3/uL Basophils Absolute 0.0 0.0 - 0.2 10*3/uL Immature Grans Absolute 0.0 <0.1 10*3/uL IPF 4 Hepatic function panel Collection Time: 02/13/24 4:14 AM Result Value Ref Range BILIRUBIN, TOTAL 0.7 0.2 - 1.3 mg/dL BILIRUBIN, DIRECT 0.0 0.0 - 0.3 mg/dL ALKALINE PHOSPHATASE 59 38 - 126 U/L AST (SGOT) 30 15 - 46 U/L ALT 17 0 - 34 U/L ALBUMIN 3.1 (L) 3.5 - 5.0 g/dL TOTAL PROTEIN 6.2 (L) 6.3 - 8.2 g/dL Basic metabolic panel Collection Time: 02/13/24 4:14 AM Result Value Ref Range SODIUM 139 135 - 145 mmol/L POTASSIUM 4.5 3.5 - 5.1 mmol/L CHLORIDE 111 (H) 98 - 107 mmol/L CARBON DIOXIDE 21 (L) 22 - 30 mmol/L UREA NITROGEN 50 (H) 7 - 17 mg/dL CREATININE 1.75 (H) 0.52 - 1.04 mg/dL GLUCOSE 131 (H) 70 - 100 mg/dL CALCIUM 8.4 8.4 - 10.4 mg/dL ANION GAP 7 3 - 13 mmol/L eGFR 29.0 (L) >60.0 mL/min/1.73m*2 Phosphorus Collection Time: 02/13/24 4:14 AM Result Value Ref Range PHOSPHORUS 4.1 2.5 - 4.5 mg/dL Magnesium Collection Time: 02/13/24 4:14 AM Result Value Ref Range MAGNESIUM 1.9 1.6 - 2.3 mg/dL Stroke Specific: Lipids: Recent Labs 02/12/24 0044 CHOL 158 TRIG 123 HDL 31* Radiology: CTH 02/11/24:There is no significant change when compared to imaging performed approximately 7 hours earlier. No acute intracranial hemorrhage. Old LEFT occipital lobe infarct. VL upper extremities 02/12/24: No evidence of deep vein or superficial vein thrombosis in the left upper extremity. Vessels demonstrate normal compressibility, color filling, and phasic and spontaneousflow. Contralateral imaging of the right subclavian vein was normal. ECHO 02/12/24: Left Ventricle: Left ventricle size is normal. Mildly increased wall thickness. Moderate septal thickening. Normal left ventricular systolic function. EF by 2D Simpsons Biplane is 77%. Normal wall motion. No thrombus or other source of embolic event is identified. Interatrial Septum: No interatrial shunt visualized on color Doppler. Right Ventricle: Right ventricle is mildly dilated. Normal systolic function. Aortic Valve: Trileaflet. No cusp thickening. Mildly calcified cusps. Mild annular calcification. Trace regurgitation. No stenosis. Left Atrium: Left atrium is mildly dilated. Aorta: Normal sized sinuses of Valsalva. Mildly dilated ascending aorta. Ao ascending diameter is 3.5 cm. MRI brain 02/12/24: 1. No acute intracranial abnormalities. 2. Remote left CHIEF JAILER territory infarct and small remote lacunar infarcts in the cerebellum and left frontal lobe. EEG 02/13/24:This routine EEG with video is abnormal. Voltage asymmetry is observed with decreased amplitudes over the LEFT posterior quadrant. No interictal epileptiform activity nor seizures are observed. Sleep architecture is seen. Normal background rhythms are observed over the right hemisphere. 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 Morbid obesity LISA Thrombocytopenia PLAN: -CUS pending -VL lower extremity pending -renal artery US pending, will check renal stent for patency and possible cause of HTN -SBP goal <160 for now, <140 in the next 2 weeks -continue and adjust home medications as needed per primary service -aspirin 81 -holding on DVT ppx at this time because of PLT count -high intensity statin -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 We will follow with the plan above. I spent a total of 35 minutes of critical care time for this neurocritically ill patient who is at high risk for both clinical and neurological decline due to further brain injury, which can occur unpredictably and rapidly cause multi-organ dysfunction. In that time I reviewed the chart including MAR, labs, neuroimaging, other imaging studies and discussed my diagnostic impression and patient's plan of care with the consulting teamand patient's family members/surrogate decision makers (in cases where the patient is incapacitatedand unable to participate in their own care). * Charlie Syed MD - 02/12/2024 5:19 PM EDT Neurocritical Care/Stroke Service PROGRESS NOTE: Patient Name:Lucho Gillespie Patient : 1940 Acct: [id number] Date of Admission: 02/11/2024 Room/Bed: T2-213/T2-213 A PCP: Avelino Deleon Patient location ICU Interval History Aphasia improved overnight, able to be weaned off of Cardene this morning after reinitiation of herclonidine. Current Hospital Medications: Current Facility-Administered Medications: acetaminophen (Tylenol) tablet 650 mg, 650 mg, Oral, q6h PRN OR acetaminophen (Tylenol) suppository 650 mg, 650 mg, Rectal, q6h PRN, Jose C Rueda, DO amLODIPine (Norvasc) tablet 5 mg, 5 mg, Oral, Daily, Rosario Pratt DO aspirin EC tablet 81 mg, 81 mg, Oral, Daily, Charlie Syed MD [START ON 02/13/2024] atorvastatin (Lipitor) tablet 40 mg, 40 mg, Oral, Nightly, Jose C Rueda, DO bisacodyl (Dulcolax) suppository 10 mg, 10 mg, Rectal, Daily PRN, Jose C Rueda DO busPIRone (Buspar) tablet 10 mg, 10 mg, Oral, BID, Charlie Syed MD, 10 mg at 02/12/24 1033 cloNIDine (Catapres) tablet 0.1 mg, 0.1 mg, Oral, BID, Charlie Syed MD, 0.1 mg at 02/12/24 1033 hydrALAZINE (Apresoline) injection 10 mg, 10 mg, IntraVENous, q4h PRN, Charlie Syed MD labetalol (Normodyne,Trandate) injection 10 mg, 10 mg, IntraVENous, q1h PRN, Charlie Syed MD, 10 mg at 02/12/24 0810 ondansetron ODT (Zofran-ODT) disintegrating tablet 4 mg, 4 mg, Oral, q8h PRN OR ondansetron (Zofran) injection 4 mg, 4 mg, IntraVENous, q6h PRN, Jose C Rueda DO polyethylene glycol (PEG) 3350 (Miralax) packet 17 g, 17 g, Oral, Daily PRN, Jose C Rueda, DO sodium chloride 0.9 % infusion, 5-250 mL/hr, IntraVENous, PRN, Jose C Kiza, DO sodium chloride 0.9 % infusion, 50 mL/hr, IntraVENous, Continuous, Charlie Syed MD, Last Rate: 75 mL/hr at 02/12/24 0004, 75 mL/hr at 02/12/24 0004 sodium chloride 0.9% (NS) flush 5-40 mL, 5-40 mL, IntraVENous, q12h, Jose C Claudeza, DO, 10 mL at 02/12/24 1135 sodium chloride 0.9% (NS) flush 5-40 mL, 5-40 mL, IntraVENous, PRN, Jose C Kiza, DO spironolactone (Aldactone) tablet 25 mg, 25 mg, Oral, Daily, Rosario Pratt DO Continuous Infusions: sodium chloride, 50 mL/hr, Last Rate: 75 mL/hr (02/12/24 0004) Allergies: Patient has no allergy information on record. ROS: Unable to obtain ROS due to patient intubated/comatose/clinical condition Objective: Telemetry: Arrhythmia:No Physical Examination: Patient Vitals for the past 8 hrs: BP Temp Temp src Pulse Resp SpO2 02/12/24 1700 (!) 183/53 -- -- 64 16 99 % 02/12/24 1645 (!) 185/61 -- -- 63 14 99 % 02/12/24 1530 (!) 176/46 -- -- 71 16 100 % 02/12/24 1523 (!) 177/52 -- -- 69 16 100 % 02/12/24 1515 (!) 160/145 -- -- 69 15 100 % 02/12/24 1500 157/78 -- -- 69 19 98 % 02/12/24 1445 (!) 153/141 -- -- 67 17 100 % 02/12/24 1430 (!) 178/48 -- -- 68 20 100 % 02/12/24 1415 (!) 163/46 -- -- 66 22 100 % 02/12/24 1400 160/65 -- -- 65 17 100 % 02/12/24 1345 (!) 144/30 -- -- 65 18 99 % 02/12/24 1330 (!) 157/39 -- -- 64 20 98 % 02/12/24 1315 (!) 156/37 -- -- 66 20 99 % 02/12/24 1300 (!) 157/48 -- -- 65 23 99 % 02/12/24 1230 (!) 156/37 -- -- 66 17 99 % 02/12/24 1215 (!) 163/48 -- -- 65 19 99 % 02/12/24 1200 160/58 37.3 C (99.2 F) Temporal 68 25 99 % 02/12/24 1145 (!) 162/49 -- -- 68 23 100 % 02/12/24 1130 (!) 137/112 -- -- 66 18 99 % 02/12/24 1115 (!) 157/39 -- -- 66 18 99 % 02/12/24 1100 (!) 171/55 -- -- 71 21 99 % 02/12/24 1045 (!) 157/40 -- -- 69 19 99 % 02/12/24 1030 (!) 167/51 -- -- 69 22 98 % 02/12/24 1015 (!) 153/45 -- -- 70 20 99 % 02/12/24 1000 (!) 160/46 -- -- 70 17 99 % 02/12/24 0945 (!) 150/109 -- -- 68 (!) 28 99 % 02/12/24 0930 157/81 -- -- 67 25 98 % I/O last 3 completed shifts: In: 1463.8 [P.O.:1000; I.V.:463.8] Out: 280 [Urine:280] General Physical Examination: General: Elderly female with head tremor HEENT: Left pupil-irregular and enlarged-has an appearance of previous cataract surgery-no reactionto light. Right pupil 3 mm round equal reactive light and brisk. She does have left eye [id number]-ldayp patient also confirms is at baseline. CV: Regular rhythm Pulm: Nonlabored respirations Abdomen: Soft nontender Skin: Skin petechiae over arms in the area of the blood pressure cuff. Extremities: Bilateral pitting edema Neurological Examination: NIHSS 1a Level of consciousness: 0=alert; keenly responsive 1b. LOC questions: 0=Performs both tasks correctly 1c. LOC commands: 0=Performs both tasks correctly 2. Best Gaze: 0=normal 3. Visual: 1=Partial hemianopia (loss of vision in left eye- prior to admission) 4. Facial Palsy: 1=Minor paralysis (flattened nasolabial fold, asymmetric on smiling) 5a. Motor left arm: 0=No drift, limb holds 90 (or 45) degrees for full 10 seconds 5b. Motor right arm: 0=No drift, limb holds 90 (or 45) degrees for full 10 seconds 6a. motor left le=No drift, limb holds 90 (or 45) degrees for full 10 seconds 6b Motor right le=No drift, limb holds 90 (or 45) degrees for full 10 seconds 7. Limb Ataxia: 0=Absent 8. Sensory: 0=Normal; no sensory loss 9. Best Language: 1=Mild to moderate aphasia; some obvious loss of fluency or facility of comprehension without significant limitation on ideas expressed or form of expression. 10. Dysarthria: 0=Normal 11. Extinction and Inattention: 0=No abnormality Total: 2 DIAGNOSTICS Last 24hrs Recent Results (from the past 24 hour(s)) ECG 12 lead if not done in the ED Collection Time: 02/12/24 12:12 AM Result Value Ref Range Heart Rate 78 bpm QRSD Interval 99 ms QT Interval 432 ms QTC Interval 493 ms P [place] 0 degrees QRS [place] 1 degrees T Wave [place] 35 degrees [place] Interval 70 ms Troponin, with Serial Reflex Collection Time: 02/12/24 12:44 AM Result Value Ref Range TROPONIN I 0.127 (HH) <0.034 ng/mL Lipid panel Collection Time: 02/12/24 12:44 AM Result Value Ref Range TRIGLYCERIDE 123 <150 mg/dL CHOLESTEROL 158 <200 mg/dL LOW DENSITY LIPOPROTEIN 102 (H) 0 - <100 mg/dL HDL CHOLESTEROL 31 (L) 40 - 60 mg/dL CHOL/HDL 5 Hemoglobin A1c Collection Time: 02/12/24 12:44 AM Result Value Ref Range HEMOGLOBIN A1C 6.4 (H) <5.7 % ESTIMATED AVERAGE GLUCOSE 137 mg/dL CBC auto differential Collection Time: 02/12/24 12:44 AM Result Value Ref Range Auto WBC 7.2 3.6 - 10.7 10*3/uL RBC 3.43 (L) 3.80 - 5.20 10*6/uL Hemoglobin 10.2 (L) 11.7 - 16.0 g/dL Hematocrit 31.4 (L) 35.0 - 47.0 % MCV 91.5 77.0 - 99.0 fL MCH 29.7 26.0 - 34.0 pg MCHC 32.5 30.5 - 36.0 % RDW 14.3 11.5 - 15.0 % Platelets 74 (L) 140 - 440 10*3/uL MPV 13.1 (H) 9.0 - 12.7 fL nRBC 0.0 0.0 - 2.0 /100 WBCs Neutrophils Relative 87.7 (H) 38.0 - 82.0 % Lymphocytes Relative 7.5 (L) 15.0 - 45.0 % Monocytes Relative 4.0 (L) 5.0 - 13.0 % Eosinophils Relative 0.1 0.0 - 6.0 % Basophils Relative 0.3 0.0 - 2.0 % Immature Grans % 0.4 0.0 - 2.0 % Neutrophils Absolute 6.4 1.8 - 7.5 10*3/uL Lymphocytes Absolute 0.5 (L) 1.0 - 4.3 10*3/uL Monocytes Absolute 0.3 0.0 - 0.9 10*3/uL Eosinophils Absolute 0.0 0.0 - 0.5 10*3/uL Basophils Absolute 0.0 0.0 - 0.2 10*3/uL Immature Grans Absolute 0.0 <0.1 10*3/uL IPF 4 Hepatic function panel Collection Time: 02/12/24 12:44 AM Result Value Ref Range BILIRUBIN, TOTAL 0.6 0.2 - 1.3 mg/dL BILIRUBIN, DIRECT 0.0 0.0 - 0.3 mg/dL ALKALINE PHOSPHATASE 64 38 - 126 U/L AST (SGOT) 27 15 - 46 U/L ALT 19 0 - 34 U/L ALBUMIN 3.5 3.5 - 5.0 g/dL TOTAL PROTEIN 6.7 6.3 - 8.2 g/dL Basic metabolic panel Collection Time: 02/12/24 12:44 AM Result Value Ref Range SODIUM 139 135 - 145 mmol/L POTASSIUM 4.6 3.5 - 5.1 mmol/L CHLORIDE 108 (H) 98 - 107 mmol/L CARBON DIOXIDE 24 22 - 30 mmol/L UREA NITROGEN 54 (H) 7 - 17 mg/dL CREATININE 2.13 (H) 0.52 - 1.04 mg/dL GLUCOSE 159 (H) 70 - 100 mg/dL CALCIUM 8.8 8.4 - 10.4 mg/dL ANION GAP 7 3 - 13 mmol/L eGFR 22.9 (L) >60.0 mL/min/1.73m*2 Phosphorus Collection Time: 02/12/24 12:44 AM Result Value Ref Range PHOSPHORUS 3.6 2.5 - 4.5 mg/dL Magnesium Collection Time: 02/12/24 12:44 AM Result Value Ref Range MAGNESIUM 1.7 1.6 - 2.3 mg/dL Troponin I Collection Time: 02/12/24 4:08 AM Result Value Ref Range TROPONIN I 0.245 (HH) <0.034 ng/mL Troponin I Collection Time: 02/12/24 7:05 AM Result Value Ref Range TROPONIN I 0.341 (HH) <0.034 ng/mL ECG 12 lead Collection Time: 02/12/24 8:33 AM Result Value Ref Range Heart Rate 72 bpm QRSD Interval 96 ms QT Interval 415 ms QTC Interval 453 ms P [place] 40 degrees QRS [place] -1 degrees T Wave [place] 100 degrees [place] Interval 191 ms Transthoracic echocardiogram (TTE) complete with contrast, bubble, strain, and 3D PRN Collection Time: 02/12/24 9:39 AM Result Value Ref Range IVSd 1.3 (A) 0.6 - 0.9 cm LVIDd 5.9 (A) 3.9 - 5.3 cm LVIDs 3.4 cm LVOT Diameter 2.3 cm LVPWd 1.1 (A) 0.6 - 0.9 cm EF BP 77 55 - 100 % LV Ejection Fraction A2C 78 % LV Ejection Fraction A4C 72 % LV EDV A2C 142 mL LV EDV A4C 125 mL LV EDV BP 139 (A) 56 - 104 mL LV ESV A2C 31 mL LV ESV A4C 34 mL LV ESV BP 32 19 - 49 mL LVOT Cardiac Output 7.8 liter/minute LVOT Peak Gradient 4 mmHg LVOT Mean Gradient 2 mmHg LVOT SV 106.3 ml LVOT Peak Velocity 1.0 m/s LVOT VTI 25.6 cm RV Longitudinal Dimension 7.3 cm RV Mid Dimension 2.5 cm RV Basal Dimension 4.3 cm RV Free Wall Peak S' 18 cm/s LA Diameter 4.6 cm LA Volume 4C 98 (A) 22 - 52 mL RA Area 4C 45.8 mL RA Area 4C 44.5 mL AV Area by Peak Velocity 2.7 cm2 AV Area by VTI 2.6 cm2 AV AT 125.59 ms AV Peak Gradient 9 mmHg AV Mean Gradient 5 mmHg AV Peak Velocity 1.5 m/s AV Mean Velocity 1.1 m/s AV VTI 40.5 cm MV A Velocity 1.62 m/s MV E Wave Deceleration Time 235.4 ms MV E Velocity 1.06 m/s LV E' Lateral Velocity 4 cm/s LV E' Septal Velocity 4 cm/s TAPSE 2.7 1.7 cm Ascending Aorta 3.5 cm IVC Diameter 1.6 cm Aortic Root 3.5 cm Fractional Shortening 2D 42 28 - 44 % LV RWT Ratio 0.37 LV Mass 2D 305.5 (A) 67 - 162 g MV E/A 0.65 E/E' Ratio (Averaged) 26.50 E/E' Lateral 26.50 E/E' Septal 26.50 LVOT Area 4.2 cm2 LA/AO Root Ratio 1.31 AV Velocity Ratio 0.67 LVOT:AV VTI Index 0.63 Troponin, with Serial Reflex Collection Time: 02/12/24 11:28 AM Result Value Ref Range TROPONIN I 0.318 (HH) <0.034 ng/mL Comprehensive metabolic panel Collection Time: 02/12/24 11:28 AM Result Value Ref Range SODIUM 137 135 - 145 mmol/L POTASSIUM 4.4 3.5 - 5.1 mmol/L CHLORIDE 107 98 - 107 mmol/L CARBON DIOXIDE 22 22 - 30 mmol/L ANION GAP 8 3 - 13 mmol/L UREA NITROGEN 53 (H) 7 - 17 mg/dL CREATININE 2.02 (H) 0.52 - 1.04 mg/dL GLUCOSE 138 (H) 70 - 100 mg/dL CALCIUM 8.5 8.4 - 10.4 mg/dL AST (SGOT) 37 15 - 46 U/L ALT 18 0 - 34 U/L ALKALINE PHOSPHATASE 57 38 - 126 U/L ALBUMIN 3.3 (L) 3.5 - 5.0 g/dL BILIRUBIN, TOTAL 0.6 0.2 - 1.3 mg/dL TOTAL PROTEIN 6.3 6.3 - 8.2 g/dL eGFR 24.4 (L) >60.0 mL/min/1.73m*2 Results from last 7 days Lab Units 02/12/24 0044 WBC AUTO 10*3/uL 7.2 HEMOGLOBIN g/dL 10.2* HEMATOCRIT % 31.4* PLATELETS AUTO 10*3/uL 74* NEUTROS PCT AUTO % 87.7* LYMPHS PCT AUTO % 7.5* MONOS PCT AUTO % 4.0* EOS PCT AUTO % 0.1 Results from last 7 days Lab Units 02/12/24 1128 SODIUM mmol/L 137 POTASSIUM mmol/L 4.4 CHLORIDE mmol/L 107 CO2 mmol/L 22 BUN mg/dL 53* CREATININE mg/dL 2.02* GLUCOSE mg/dL 138* CALCIUM mg/dL 8.5 Results from last 7 days Lab Units 02/12/24 1128 02/12/24 0044 SODIUM mmol/L 137 139 POTASSIUM mmol/L 4.4 4.6 CHLORIDE mmol/L 107 108* CO2 mmol/L 22 24 BUN mg/dL 53* 54* CREATININE mg/dL 2.02* 2.13* CALCIUM mg/dL 8.5 8.8 PROTEIN TOTAL g/dL 6.3 6.7 BILIRUBIN TOTAL mg/dL 0.6 0.6 ALK PHOS U/L 57 64 ALT U/L 18 19 AST U/L 37 27 GLUCOSE mg/dL 138* 159* @LL(osmolality)@< Stroke Specific: HEMOGLOBIN A1C Date Value Ref Range Status 02/12/2024 6.4 (H) <5.7 % Final Comment: Normal less than 5.7% Prediabetes 5.7% to 6.4% Diabetes 6.5% or higher --HgbA1C levels may not be accurate in patients who have renal disease, received recent blood transfusions, are anemic, or who have dyshemoglobinemia. CHOLESTEROL Date Value Ref Range Status 02/12/2024 158 <200 mg/dL Final TRIGLYCERIDE Date Value Ref Range Status 02/12/2024 123 <150 mg/dL Final LOW DENSITY LIPOPROTEIN Date Value Ref Range Status 02/12/2024 102 (H) 0 - <100 mg/dL Final HDL CHOLESTEROL Date Value Ref Range Status 02/12/2024 31 (L) 40 - 60 mg/dL Final Personal Review of Imaging MRI: pending Other Diagnostics TTE: report pending ASSESSMENT / PLAN/RECOMMENDATIONS: Suspected acute ischemic stroke-expressive aphasia, right hemiparesis s/p IV tenecteplase -Patient with multiple vascular risk factors including hypertension, CKD, hyperlipidemia, obesity, LISA -Neurologically improving post tenecteplase -Stroke etiology likely to be either atheroembolic from left ICA carotid stenosis or potentially cardioembolic-Will need TTE and outpatient event monitoring for paroxysmal atrial fibrillation -Systolic blood pressure goal less than 180, restart home clonidine 0.1 mg twice daily in order to wean off of nicardipine. -MRI brain ordered for post TNK imaging -Start aspirin following 24-hour imaging if no intracranial hemorrhage -Patient with thrombocytopenia will need to compare to previous records- peripheral smear sent -Leg Dopplers and upper extremity ultrasound sent to evaluate for clots which may be contributing to consumptive coagulopathy. -Hold heparin DVT prophylaxis for now -IV fluid hydration due to recent contrast administration-patient with known renal artery stenosis and CKD stage III -Bedrest for now until 24-hour post TNK precautions completed -Still requiring ICU for frequent neuromonitoring as part of the post 24-hour thrombolytic protocol -PELLETISING EXTRUDER OPERATOR for language evaluation Patient's son was present at the bedside we discussed the neurological plan of care in the presenceof our patient, all questions answered at the end of our conversation. VTE prophylaxis: Contraindicated < 24 hr TNK SCDs Antithrombotic therapy in first 24 hrs: Contraindicated because less than 24 hr post TNK - awaitingimaging Statin therapy for stroke stroke patients: High intensity Anticoagulation on AF patients: N/A no history of AF Activity: Bed rest Disposition: pending rehab evaluation I personally spent [x] 36, []50 , [] 70 minutes in critical care time for this neurocritically ill patient who is at high risk for both clinical and neurological decline due to further brain injury, which can occur unpredictably and rapidly cause multi-organ dysfunction. During that time I performed a face to face diagnostic evaluation of this patient reviewing labs, imaging studies and the electronic medical record; as well as counseling/coordinating care and provided discussion regarding diagnostic impressions and the plan of care with the consulting team and patient's family members/surrogate decision makers (in cases where the patient is incapacitated and unable to participate in their own care). Charlie Syed MD Neurocritical Care Attending Pager: [phone] * Smiley Phillip RD - 02/12/2024 1:50 PM EDT Nutrition Assessment Type and Reason for Visit: Initial Nutrition Recommendations/Plan: Continue with Regular diet. Sign off to dietitian teacher Monitor nutritional status. Nutrition Assessment: Pt is an 87-py[age]hvj-female who was transferred from OSH after receiving TNK. At OSH she was noted to have expressive aphasia, and Right hemiplegia. Her NIH was 12 at OSH. She was transferred to [facility] for further workup and treatment. Of note, she was placed on a Cardene drip to support her BP when getting transferred. NIH completed with a total of 8 for patient not knowing month, partial hemianopia of the Right, left facial palsy, right arm drift that did not hit the bed, mild to moderate loss of sensation, aphasia, and tactile extinction/inattention. On physical exam, it was noted that she had anisocoria with the left pupil at 4mm vs the right at 2mm. A repeat CT wo contrast was completed that did not show any significant changes when compared to the CT completed approximately 7 hrs prior. No acute intracranial hemorrhage was noted. 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 Regular diet approved. Current Nutrition Therapies: Adult diet Regular Smiley Phillip RD,LD,[facility] Contact: *[phone] or [employer] * Lo Reddy PT - 02/12/2024 11:31 AM EDT Images from the original note were not included. PHYSICAL THERAPY [facility] Name/MRN: Lucho Gillespie ([id number]) Date: 02/12/2024 PT orders received. Pt with active strict bedrest orders. Will attempt eval with updated activity orders. Lo Reddy PT * Carol Brian - 02/12/2024 11:13 AM EDT Images from the original note were not included. Speech-Language Pathology SPEECH LANGUAGE PATHOLOGY [facility] Speech Language Evaluation Patient Name: Lucho Gillespie Evaluation Date: 02/12/2024 Date of : 1940 Admission Date: 02/11/2024 11:08 PM Age: 83 y.o. Room/Bed: T2-213/T2-213 A Subjective Patient alert and cooperative. Seen laying in bed. No visitors at bedside. Spoke with TRUONG Segal who cleared pt to be evaluated. Past Medical History: No past medical history on file. Past Surgical History: No past surgical history on file. Admission Diagnosis: Patient Active Problem List Diagnosis Date Noted Ischemic stroke (HCC) 02/11/2024 CT/MRI Results: CT head wo IV contrast 02/11/2024 Impression There is no significant change when compared to imaging performed approximately 7 hours earlier. Noacute intracranial hemorrhage. Old LEFT occipital lobe infarct. CRITICAL TEST COMMUNICATION: Dr. Syed was notified by telephone today at 11:36pm. ASPECTS: 10 Report Dictated on Electronically Signed By: Suzie Henriquez MD Electronically Signed Date/Time: 02/11/2024 11:40 PM EDT History of Present Illness: Patient was transferred from OSH after receiving TNK. At OSH she was noted to have expressive aphasia, and Right hemiplegia. Her NIH was 12 at OSH. She was transferred to [facility] for further workup and treatment. Of note, she was placed on a Cardene drip to support her BP when getting transferred. At arrival to the [facility] ED, vitals were significant for BP 112/46, Cardene drip discontinued. SPO2 93% on RA. NIH completed with a total of 8 for patient not knowing month, partial hemianopia of the Right, left facial palsy, right arm drift that did not hit the bed, mild to moderate loss of sensation, aphasia, and tactile extinction/inattention. On physical exam, it was noted that she had anisocoria with the left pupil at 4mm vs the right at 2mm. A repeat CT wo contrast was completed that did not show any significant changes when compared tothe CT completed approximately 7 hrs prior. No acute intracranial hemorrhage was noted. Ischemic stroke: partial hemianopia of the Right, left facial palsy, right arm drift, loss of sensation, aphasia, and tactile extinction/inattention. Status post TNK. Debility Patient Complaint: Patient voices no complaints at bedside. ST eval for language secondary to ischemic stroke. Pain: RN managing pain. PPE Worn: surgical mask, gloves Objective Orientation: oriented to person, place, time, and general circumstances Oral Motor Mechanism: Adequate structure, strength, and ROM in lingual, labial, and buccal musculature. Auditory Comprehension: Object Identification: 100% Body Parts: 100% Following 1-step commands: 100% Following 2-step commands: 100% Following 3-step commands: completed 2 of the steps, asked for repetition of the last step. Answering Yes/No Questions: Simple: 100% Abstract: 100% Summary: Pt presents within normal limits in auditory comprehension. Verbal Expression: Automatic Speech Tasks: Counting 1 - 10: 100% Days of Week: 100% Confrontation Namin% Function of Object: 100% Responsive Namin% Divergent Namin% could not state 5 occupations. Verbal Explanation: 70% needed minimal cueing to expand and sequence steps. Summary: Pt presents with mild impairment in verbal expression. Basic Cognition: Attention: adequate Verbal Problem Solving: adequate Assessment/Plan IMPRESSION: Patient presents WFL concerning receptive language skills and demonstrates mild impairments with expressive language skills. Patient demonstrates the most difficulty when asked to sequence steps or produce longer verbal explanations. Pt would benefit from skilled acute PELLETISING EXTRUDER OPERATOR services to address expressive language. Frequency: 3 days/wk for 2 weeks Barriers: Medical complications Prognosis: good D/C Recommendations: to be determined Education Given: communication Given To: patient and RN Response: verbalizes understanding Goals Patient Stated Goal: To rest. Encounter Problems Encounter Problems (Active) PELLETISING EXTRUDER OPERATOR Misc Verbal Explanation Start: 02/12/24 Expected End: 02/26/24 Sequencing Start: 02/12/24 Expected End: 02/26/24 Therapy Time PELLETISING EXTRUDER OPERATOR Individual Minutes Time In: 1050 Time Out: 1110 Minutes: 20 Carol Brian * Kaitlyn Elder RN - 02/12/2024 9:20 AM EDT Wound Care consulted for Pressure Injury Prevention. Pt's Nayan score= 15 on 02/11 Pt's pressure points assessed. Pt's Heels, Buttocks/coccyx, Back, Elbows, Occiput and ears all intact. Prevention Measures in place, including: Bristol sheet with pillows/wedges, Foam heel protectors, Heels elevated off bed on pillows, Sacral foam, Moisture Barrier ointment, Waffle chair cushion (obtained for pt). Skin Care precaution order set in place. Information Systems Security Manager consult N/A, subscore=3. PT consult order in place. D/W nursing staff. Will continue to follow pt. Please Voicera for any questions or concerns. Amanda Elder RN, CWCN * TEA Ambrosio - 02/12/2024 7:21 AM EDT Speech-Language Pathology Patient passed the Nursing Swallowing Screening and is on a Regular diet, Cardiac: Low fat, Low cholesterol. High Fiber, ASHLEY with Thin liquids. Completed speech orders as per stroke protocol. 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 Hanna), CKD and previous ischemic stroke who presented to [facility] as an OSH transfer from [place] for presumed CVA (NIH of 14) s/p TNK. . Pt was found to have initial L facialand RUE weakness w/aphasia at SNF and brought to the hospital. Pt was also noted to be hypertensivew/SBP in 200's, started on a cardene gtt prior to TNK. Upon arrival, pt's NIH was 8, with partial hemianopia on the right, L facial palsy, RUE weakness, and tactile extinction/inattention. Anisocoriawas noted that night, prompting head CT to r/o hemorrhage, in which it was negative. 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 Later it was learned from family that anisocoria has been present since prior stroke in 2021. NIH IMPROVED RE Acute, acute on chronic, unstable/uncontrolled chronic problems/diagnoses: Transient Aphasia/Right hemiparesis s/p tenecteplase recrudescence of remote L CHIEF JAILER stroke in the setting of HTN emergency 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 Remote left CHIEF JAILER territory infarct and small remotelacunar infarcts in the cerebellum and left frontal lobe. MRI revealed remote L CHIEF JAILER infarct w/small lacunar ichemia in cerebellum and L frontal lobe. No evidence of new stroke. Pt deemed to not have had a stroke, but HTN emergency with stroke recrudescence.EEG negative for seizure activity, confirmed voltage asymmetry on the left posterior quadrant aligning w/prior stroke. TTE showed no embolic source, EF of 77%. EEG showed findings supporting of a LEFT posterior-quadrant structural abnormality and are concordant with the patient's known remote left CHIEF JAILER stroke as seen on neuroimaging. 02/15 event monitor ordered the day of discharge Stable chronic problems affecting care, new non-acute diagnoses: HTN uncontrolled Nephrology cleared for dc Follow up with primary casualty insurance claim adjuster --> recommend prn hydralazine for SBP > 160 Norvasc clonidine chlorthalidone aldactone Renal artery stenosis 12/07 stent abdominal MRI w and w/o contrast Probable right proximal renal artery stent with associated susceptibility artifact limiting evaluation. If there is no history of stent placement, this appearance is suggestive of severe narrowing. Moderate narrowing in the proximal left renal artery. 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 Lesion on the liver and spleen recommend outpatient follow-up with hematology and PCP Narrowing of celiac artery patient denies abdominal discomfort CKD stage 4 baseline unknown Thrombocytopenia Hematology cleared patient for discharge on February 15 abdominal US Several slightly echogenic splenic lesions, which may represent hemangiomas, but are not definitively characterized. Cannot exclude splenic metastases, lymphoma, or other splenic neoplasm. Recommend further evaluation with multiphasic MRI of the abdomen. 2. Complex cystic hepatic lesions. Recommend attention on follow-up MRI.. Leftrenal cyst, containing a slightly thickened septation. Recommend attention on follow-up MRI. Peripheral; blood smear Normocytic, normochromic anemia. Thrombocytopenia. Blasts and dysgranulopoiesis are not identified. No increase in schistocytes is seen. Chronic anemia Improving No signs of bleeding 02/13 HB 9.1 -->02/15 HB 9.8 Hospital Course: See discharge diagnoses list above and medication adjustments below in med rec.Thepatient is discharged in improved and stable condition. Consults: IP CONSULT TO CASE MANAGEMENT IP CONSULT TO NEUROLOGY IP WOUND CARE NURSE CONSULT TO EVAL IP CONSULT TO HEM/ONC IP CONSULT TO NEPHROLOGY Discharge Instructions: Diet: Dietary Orders (From admission, onward) Start Ordered 02/14/24813 Adult diet Regular Diet effective now Question: Diet type Answer: Regular 02/14/24812 Activity: as tolerated Recommended Outpatient Tests: Disposition: Patient discharged in stable condition to Home. Greater than 31 minutes spent discharging the patient and coming up with patient discharge plan. Vitals: BP 160/70 (BP Location: Right arm, Patient Position: Lying) Pulse 73 Temp 36.5 C (97.7 F) (Temporal) Resp 16 Ht 5' 3 (1.6 m) Wt 276 lb (125 kg) SpO2 95% BMI 48.89 kg/m Pulse Ox: SpO2 Av.2 % Min: 94 % Max: 96 % Supplemental O2: O2 Flow Rate (L/min): 2 L/min LABS: Recent Labs 02/14/2412902/15/2442802/16/24423 NA 140 139 140 K 4.7 4.5 4.4 CL 109* 111* 110* CO2 21* BUN 52* 52* 50* CREATININE 1.69* 1.79* 1.66* GLUCOSE 123* 132* 149* CALCIUM 8.6 8.4 8.8 Recent Labs 02/14/2412902/15/2442802/16/24423 WBC 6.3 5.1 5.5 RBC 3.19* 3.03* 3.27* HGB 9.5* 9.1* 9.8* HCT 29.6* 28.4* 30.4* MCV 92.8 93.7 93.0 MCH 29.8 30.0 30.0 MCHC 32.1 32.0 32.2 RDW 14.3 14.4 14.1 PLT 69* 65* 73* MPV 13.4* 12.8* 12.8* Discharge Medications: Medication List START taking these medications amLODIPine 10 MG tablet Commonly known as: Norvasc Take 1 tablet (10 mg) by mouth daily. Aspirin Low Dose 81 MG EC tablet Generic drug: aspirin Take 1 tablet (81 mg) by mouth daily. Replaces: aspirin 325 MG tablet atorvastatin 40 MG tablet Commonly known as: Lipitor Take 1 tablet (40 mg) by mouth Nightly. hydrALAZINE 25 MG tablet Commonly known as: Apresoline Take 1 tablet (25 mg) by mouth every 8 hours as needed (SBP greater than 160). CHANGE how you take these medications chlorthalidone 25 MG tablet Commonly known as: Hygroton Take 0.5 tablets (12.5 mg) by mouth daily. What changed: how much to take when to take this spironolactone 50 MG tablet Commonly known as: Aldactone Take 1 tablet (50 mg) by mouth daily. What changed: medication strength how much to take CONTINUE taking these medications acetaminophen 650 MG suppository Commonly known as: Tylenol allopurinol 100 MG tablet Commonly known as: Zyloprim busPIRone 10 MG tablet Commonly known as: Buspar cholecalciferol 25 MCG (1000 UT) capsule Commonly known as: Vitamin D-3 cloNIDine 0.1 MG tablet Commonly known as: Catapres doxazosin 2 MG tablet Commonly known as: Cardura STOP taking these medications aspirin 325 MG tablet Replaced by: Aspirin Low Dose 81 MG EC tablet clopidogrel 75 MG tablet Commonly known as: Plavix epoetin herbert 69652 UNIT/ML injection Commonly known as: Epogen,Procrit escitalopram 20 MG tablet Commonly known as: Lexapro ferrous sulfate 325 (65 Fe) MG EC tablet folic acid 1 MG tablet Commonly known as: Folvite rosuvastatin 10 MG tablet Commonly known as: Crestor Where to Get Your Medications These medications were sent to [facility] [address] [place] [address] Hours: Sunday to Sunday 10 am to 6 pm amLODIPine 10 MG tablet Aspirin Low Dose 81 MG EC tablet atorvastatin 40 MG tablet chlorthalidone 25 MG tablet hydrALAZINE 25 MG tablet spironolactone 50 MG tablet Recommended Follow-up: [facility] [address] [facility] [address] Schedule an appointment as soon as possible for a visit in 4 week(s) Follow up from hospital stay referral sent office will call family to schedule. Avelino Deleon [address] [facility] [address] Schedule an appointment as soon as possible for a visit Brad Alonzo MD [address] [facility] [address] [facility] [address] Follow up in 1 week(s) Lucy Sneed [address] [facility] [address] Follow up in 1 week(s) Complexity of Follow up: [] Moderate Complexity: follow up within 7-14 calendar days (01679) [x] Severe Complexity: follow up within 7 calendar days (15800) Follow up Testing, Pending results or Referrals at Transitional Care Visit: [x] yes [] no Instructions to MA: Please call patient on day after discharge (must document patient contacted within 2 business days of discharge). Follow up questions for MA: 1. Did you get medications filled and taking them as instructed from discharge? 2. Are you following your discharge instructions from your hospital stay? 3. Please confirm patient is scheduled for a follow up appointment within the above time frame. Signed: Laurie Tamez DO Division of Hospitalist Medicine [facility] 02/16/2024, 3:37 PM documented in this [facility]04-13-2024 Note* Care Coordination - Laura Patel RN - 02/16/2024 1:45 PM EDT DCP- [facility]- [facility]- No auth needed. Pt able to dc to facility once medically stable. Messaged Dr. Tamez to update on the above. Received message back from Dr Tamez who reports pt planned for dc today. DC orders completed. Family plans to transport pt to SNF. Son Antonio in pt room- aware of dc. Updated RN on the above. No add'l needs for dc noted or identified at this time. Electronically signedby Laura Patel RN on 02/16/2024 at 2:11 PM [id number] Note* Care Coordination - Laura Patel RN - 02/16/2024 1:45 PM EDT DCP- [facility]- No auth needed. Pt able to dc to facility once medically stable. Messaged Dr. Tamez to update on the above. Received message back from Dr Tamez who reports pt planned for dc today. DC orders completed. Family plans to transport pt to SNF. Valeriano Alvarez in pt room- aware of dc. Updated RN on the above. No add'l needs for dc noted or identified at this time. Electronically signedby Laura Patel RN on 02/16/2024 at 2:11 PM [facility] [id number] Miscellaneous Notes* Care Coordination - Laura Patel RN - 02/16/2024 1:45 PM EDT DCP- [facility]- No auth needed. Pt able to dc to facility once medically stable. Messaged Dr. Tamez to update on the above. Received message back from Dr Tamez who reports pt planned for dc today. DC orders completed. Family plans to transport pt to SNF. Valeriano Alvarez in pt room- aware of dc. Updated RN on the above. No add'l needs for dc noted or identified at this time. Electronically signedby Laura Patel RN on 02/16/2024 at 2:11 PM * Care Coordination - Suzie Redding RN - 02/15/2024 12:18 PM EDT Tcc called and left VM for lulumarta VAZQUEZ and all clinicals and 7000 kia done. Med rec sent. They are expecting her today . Family to transport - staff to call report to call report to [phone] ext [phone] . MRI is done . Need discharge orders . * Care Coordination - Ayleen Gomez - 02/15/2024 9:44 AM EDT Faxed referral and updates to [facility] per TCC request. Await review and response regarding ability to accept. TCC notified. 7000 was entered into [employer] for the [facility]. * Care Coordination - Suzie Redding RN - 02/15/2024 6:45 AM EDT Images from the original note were not included. Care Management Progress Note PER IDR yesterday PLAN - [facility]. Family may transport. Kia done palliative care physician tasked to do 7000 and send clinicals As long as BP controlled will discharge SW aware of above . Discharge Milestones and Delays Expected Date/Time: 02/15/[address] discharge order Complete med reconciliation Case mgmt discharge readiness Clinical Stability Diagnsotic Workup Facility Choice Selection Expected Discharge History Expected Date/Time Set By Reviewed At 02/15/2024 Suzie Redding RN 02/15/2024 6:45 AM 02/15/2024 Suzie Redding RN 02/14/2024 7:19 AM 02/18/2024 Cherise Fonseca RN 02/13/2024 7:32 AM 02/18/2024 Cherise Fonseca RN 02/12/2024 7:45 AM 02/18/2024 Jose C Rueda DO 02/11/2024 11:39 PM 02/18/2024 Jose C Rueda, DO 02/11/2024 11:25 PM Length of Stay (Days): 4 GMLOS: 2.9 * Care Coordination - Suzie Redding RN - 02/14/2024 12:30 PM EDT Images from the original note were not included. Care Management Progress Note TCC spoke to the AL at [facility]- confirmed with lulu the don that patient is accepted at the TCU section /building- confirmed the address and attending to do kia for 7000 and [facility] to send discharge orders . Anticipate discharge in am if BP stable . Per TAYLOR . Covid is not an issue - updated dtr an patient- dtr says family may transport will let tcc know in am . Discharge Milestones and Delays Expected Date/Time: 02/15/[address] discharge order Complete med reconciliation Case mgmt discharge readiness Clinical Stability Diagnsotic Workup Facility Choice Selection Expected Discharge History Expected Date/Time Set By Reviewed At 02/15/2024 Suzie Reddnig RN 02/14/2024 7:19 AM 02/18/2024 Cherise Fonseca RN 02/13/2024 7:32 AM 02/18/2024 Cherise Fonseca RN 02/12/2024 7:45 AM 02/18/2024 Jose C Rueda DO 02/11/2024 11:39 PM 02/18/2024 Jose C Rueda, DO 02/11/2024 11:25 PM Length of Stay (Days): 3 GMLOS: 2.9 * Care Coordination - Ayleen Gomez - 02/14/2024 8:50 AM EDT [facility] [phone] TCC request. Await review and response regarding ability to accept. TCC notified. * Care Plan - Estephania Mnan RN - 02/13/2024 10:28 PM EDT The patient is Moderately Stable - Low risk of patient condition declining or worsening The patient's goals for the shift include The clinical goals for the shift include safety Over the shift, the patient did not make progress toward the following goals. Barriers to progression include Problem: Knowledge Deficit Goal: Patient/family/caregiver demonstrates understanding of disease process, treatment plan, medications, and discharge instructions Outcome: Progressing Problem: Potential for Compromised Skin Integrity Goal: Skin Integrity is Maintained or Improved Outcome: Progressing Goal: Nutritional status is improving Outcome: Progressing Problem: Potential for Aspiration Goal: Non-ventilated patient's risk of aspiration is minimized Outcome: Progressing * Care Coordination - Rufina Cervantes RN - 02/13/2024 2:51 PM EDT Spoke to patients daughter Violetta notified her that [facility] will call either her or Jose C patients son to schedule follow up. * Care Coordination - Rufina Cervantes RN - 02/13/2024 2:06 PM EDT Met with patient and her daughter Violetta, they would like patient to follow up with [facility] [place] referral sent. * Care Coordination - Cherise Fonseca RN - 02/13/2024 7:59 AM EDT TCC requested PT/OT/PELLETISING EXTRUDER OPERATOR for PT/OT to see today. * Care Coordination - Loraine Vázquez - 02/12/2024 2:49 PM EDT Referral placed to [facility] via fax per TCC request. Await review and response regarding ability to accept. TCC notified. * Care Coordination - Cherise Fonseca RN - 02/12/2024 2:29 PM EDT Images from the original note were not included. Care Management Progress Note TCC received HCPOA, Living Will and insurance information via email. TCC printed copies of each andplaced in chart. TCC forwarded copies of insurance information to financial advocates via email. TCC updated EHR emergency contacts with HCPOA information per document. Discharge Milestones and Delays Expected Date/Time: 02/18/[address] discharge order Complete med reconciliation Case mgmt discharge readiness Clinical Stability Diagnsotic Workup Expected Discharge History Expected Date/Time Set By Reviewed At 02/18/2024 Cherise Fonseca RN 02/12/2024 7:45 AM 02/18/2024 Jose C Rueda DO 02/11/2024 11:39 PM 02/18/2024 Jose C Rueda DO 02/11/2024 11:25 PM Length of Stay (Days): 1 GMLOS: No GMLOS Documented * Care Coordination - Cherise Fonseca RN - 02/12/2024 1:24 PM EDT Care Managment Initial Assessment Date: 02/12/2024 Patient Name: Lucho Gillespie : 1940 Patient Information Source of Information: Patient Echo Vasc Tech Name/Contact Information: Jose C Hernandez Son [phone] Cognition/Language: Confused at baseline Permission given to speak with patient customer care representative/caregiver as indicated: Yes Confirmation of Payer with patient/family: Yes Payer Name: Medicare/Medco : No Confirmation of Primary Care Physician: Confirmed PCP Name: Silvana Deleon Seen in last 2 years?: Yes Primary Caregiver: Self If assistance needed, confirmed caregiver ready, willing and able to care for patient at discharge: Confirmed with: Living Arrangements Current Residence: Number of Floors Number of Entry Steps: Bed/Bath Levels: Facility: [facility] Facility Name: [facility] Plan to Return: Yes Lives with: Other (Comment) (facility) Support Systems: Comments (Other), Children (facility) Activities of Daily Living Ambulation: Assistance Bathing/Dressing: Assistance Elimination/Continence/Toileting: Assistance Feeding: Independent Who Assists with Activities of Daily Living: Instrumental Activities of Daily Living Prescription Coverage: Yes Pharmacy Used: facility Medication Management: Medication dispenser Who assists with medication securing and setup?: facility Transportation/Shopping: Assistance Provider Transportation/Shopping Assistance Provider Name: facility/family Transportation Mode: Payer provided transport service Needs Assistance with Transportation at Discharge: Yes Meal Preparation: Assistance Provider Meal Prep Assistance Provider Name: facility Laundry/Cleaning: Assistance Provider Laundry/Cleaning Assistance Provider Name: facility Finances/Bill Paying: Assistance Provider Finances/Bill Payer Assistance Provider Name: family Communication: Independent Types of Care Services/Equipment Utilized Care Services: Dialysis Type: NA Durable Medical Equipment: Walker Patient's Goal/Discharge Plan Patient [facility] to be discharged to: [facility] Discharge Planning Actions: Continue to follow Patient's Choice Rights and [employer] and Collaborative Relationships Disclosed as Indicated for Post-Acute Care: Interdisciplinary Team Engagement: PT/OT Social Work Referral for: Transportation Assistance Additional Information: Chart reviewed. Patient admitted to [facility] ICU for ischemic stroke s/p TNK 02/11/2024. Consults to IP CONSULT TO CASE MANAGEMENT IP CONSULT TO NEUROLOGY IP WOUND CARE NURSE CONSULT TO EVAL Initial Assessment: Spoke with patient and son Jose C at bedside. Introduced myself and role as TCC. IA complete. Patientpersonal information confirmed. TCC updated EC section of EHR. Jose C states that he has her insurance information and HCPOA; Jose C plans to email copies to [facility]. Patient currently from [facility]. [facility] called facility to confirm services [phone] - [facility] tasked APRON MAN to send referral via careport. SW following for transportation and an AL assistance. Discharge Planning Barrier: NIH 4. 2LNC- none baseline. IVMF. PT/OT pending. Discharge Plan: [facility] Living vs Care Home. Awaiting PT/OT evals, clinical stability and medical clearance. Will continue to follow with SW. Cherise Fonseca RN documented in this [place] [address]-13-2024 NoteHospitalist Progress Note 02/16/2024 Subjective: Admit Date: 02/11/2024 PCP: Avelino Deleon Room#: W3-324/W3-324 B Interval History: family at bedside Denies cp sob abdominal pain n/v/d fever chills No overnight issues. Case and plan discussed with patient and bedside nurse. All questions answered. Adult diet Regular 24HR INTAKE/OUTPUT: Intake/Output Summary (Last 24 hours) at 02/16/2024 1118 Last data filed at 02/15/2024 1848 Gross per 24 hour Intake -- Output 1200 ml Net -1200 ml Past Medical History: No past medical history on file. LABS: CBC: Recent Labs 02/14/240 02/15/2442802/16/24423 WBC 6.3 5.1 5.5 RBC 3.19* 3.03* 3.27* HGB 9.5* 9.1* 9.8* HCT 29.6* 28.4* 30.4* MCV 92.8 93.7 93.0 RDW 14.3 14.4 14.1 PLT 69* 65* 73* BMP: Recent Labs 02/14/24 0130 02/15/2442802/16/24423 NA 140 139 140 K 4.7 4.5 4.4 CL 109* 111* 110* CO2 24 24 21* BUN 52* 52* 50* CREATININE 1.69* 1.79* 1.66* GLUCOSE 123* 132* 149* CALCIUM 8.6 8.4 8.8 ANIONGAP 8 5 9 LIVER PROFILE: Recent Labs 02/14/24 0130 AST 30 ALT 18 BILITOT 0.7 ALKPHOS 58 PROT 6.1* PT/INR: No results for input(s): PROTIME, INR in the last 72 hours. CARDIAC ENZYMES: No results for input(s): TROPONINI in the last 72 hours. Procalcitonin: No results found for: PROCAL COVID-19 PCR: No results for input(s): COVID19 in the last 72 hours. Objective: Vitals: BP (!) 172/88 (BP Location: Right arm, Patient Position: Sitting) Pulse 64 Temp 36.8 ?C (98.2 ?F) (Temporal) Resp 16 Ht 5' 3 (1.6 m) Wt 276 lb (125 kg) SpO2 96% BMI 48.89 kg/m? Pulse Ox: SpO2 Av.4 % Min: 94 % Max: 96 % Supplemental O2: O2 Flow Rate (L/min): 2 L/min Physical Exam Constitutional: Appearance: Normal appearance. HENT: Head: Normocephalic and atraumatic. Eyes: Extraocular Movements: Extraocular movements intact. Conjunctiva/sclera: Conjunctivae normal. Cardiovascular: Rate and Rhythm: Normal rate and regular rhythm. Pulmonary: Effort: Pulmonary effort is normal. No respiratory distress. Breath sounds: Normal breath sounds. Abdominal: General: Bowel sounds are normal. Palpations: Abdomen is soft. Skin: General: Skin is warm. Neurological: General: No focal deficit present. Mental Status: She is alert and oriented to person, place, and time. Medications: Scheduled PRN amLODIPine, 10 mg, Oral, Daily aspirin, 81 mg, Oral, Daily atorvastatin, 40 mg, Oral, Nightly busPIRone, 10 mg, Oral, BID chlorthalidone, 12.5 mg, Oral, Daily cloNIDine, 0.1 mg, Oral, BID doxazosin, 2 mg, Oral, BID senna-docusate sodium, 2 tablet, Oral, BID sodium chloride 0.9%, 5-40 mL, IntraVENous, q12h spironolactone, 50 mg, Oral, Daily PRN medications: acetaminophen OR acetaminophen, bisacodyl, hydrALAZINE, labetalol, ondansetron ODT OR ondansetron, polyethylene glycol (PEG) 3350, sodium chloride, sodium chloride 0.9% Continuous Assessment Acute, acute on chronic, unstable/uncontrolled chronic problems/diagnoses: Transient Aphasia/Right hemiparesis s/p tenecteplase recrudescence of remote L CHIEF JAILER stroke in the setting of HTN emergency 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 Remote left CHIEF JAILER territory infarct and small remote lacunar infarcts in the cerebellum and left frontal lobe. Stable chronic problems affecting care, new non-acute diagnoses: HTN uncontrolled Nephrology following Norvasc clonidine chlorthalidone aldactone Renal artery stenosis 12/07 stent abdominal MRI w and w/o contrast Probable right proximal renal artery stent with associated susceptibility artifact limiting evaluation. If there is no history of stent placement, this appearance is suggestive of severe narrowing. Moderate narrowing in the proximal left renal artery. 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 Lesion on the liver and spleen recommend outpatient follow-up with hematology and PCP Narrowing of celiac artery patient denies abdominal discomfort CKD stage 4 baseline unknown Thrombocytopenia Hematology cleared patient for discharge on February 15 abdominal US Several slightly echogenic splenic lesions, which may represent hemangiomas, but are not definitively characterized. Cannot exclude splenic metastases, lymphoma, or other splenic neoplasm. Recommend further evaluation with multiphasic MRI of the abdomen. 2. Complex cystic hepatic lesions. Recommend attention on follow-up MRI.. Left renal cyst, containing a slightly thickened septation. Recommend attention on follow-up MRI. Peripheral; blood smear Normocytic, normochromic anemia. Thrombocytopenia. Blasts and dysgranulopoiesis are not identified. No incr (more content not included)...[facility] [id number] Note1. Probable right proximal renal artery stent with associated susceptibility artifact limiting evaluation. If there is no history of stent placement, this appearance is suggestive of severe narrowing. 2. Moderate narrowing in the proximal left renal artery. 3. 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 4. T2 hyperintense lesions in the liver and spleen which are not fully characterized and nonspecific in etiology. Follow-up multiphase CT or MRI should be considered if these lesions have not been previously characterized. Report Dictated on Electronically Signed By: Maurisio Almanza DR Electronically Signed Date/Time: 02/15/2024 8:03 PM EDT [facility]04-12-2024 Note* Care Coordination - Suzie Redding RN - 02/15/2024 12:18 PM EDT Tcc called and left VM for lulu VAZQUEZ and all clinicals and 7000 kia done. Med rec sent. They are expecting her today . Family to transport - staff to call report to call report to [phone] ext [phone] . MRI is done . Need discharge orders . [facility] [id number] Note* Care Coordination - Suzie Redding RN - 02/15/2024 12:18 PM EDT Tcc called and left VM for lulu VAZQUEZ and all clinicals and 7000 kia done. Med rec sent. They are expecting her today . Family to transport - staff to call report to call report to [phone] ext [phone] . MRI is done . Need discharge orders . [facility] [id number] NoteHospitalist Progress Note 02/15/2024 Subjective: Admit Date: 02/11/2024 PCP: Avelino Deleon Room#: W3-324/W3-324 B Interval History: family at bedside Denies cp sob abdominal pain n/v/d fever chills No overnight issues. Case and plan discussed with patient and bedside nurse. All questions answered. Adult diet Regular 24HR INTAKE/OUTPUT: No intake or output data in the 24 hours ending 02/15/24945 Past Medical History: No past medical history on file. LABS: CBC: Recent Labs 02/13/2441302/14/2412902/15/24428 WBC 6.5 6.3 5.1 RBC 3.12* 3.19* 3.03* HGB 9.3* 9.5* 9.1* HCT 29.4* 29.6* 28.4* MCV 94.2 92.8 93.7 RDW 14.5 14.3 14.4 PLT 67* 69* 65* BMP: Recent Labs 02/13/2441302/14/2412902/15/24428 NA 139 140 139 K 4.5 4.7 4.5 CL 111* 109* 111* CO2 BUN 50* 52* 52* CREATININE 1.75* 1.69* 1.79* GLUCOSE 131* 123* 132* CALCIUM 8.4 8.6 8.4 ANIONGAP 7 8 5 LIVER PROFILE: Recent Labs 02/12/24 1128 02/13/2441302/14/24129 AST 37 30 30 ALT 18 17 18 BILITOT 0.6 0.7 0.7 ALKPHOS 57 59 58 PROT 6.3 6.2* 6.1* PT/INR: No results for input(s): PROTIME, INR in the last 72 hours. CARDIAC ENZYMES: Recent Labs 02/12/241127 TROPONINI 0.318* Procalcitonin: No results found for: PROCAL COVID-19 PCR: No results for input(s): COVID19 in the last 72 hours. Objective: Vitals: BP 132/58 (BP Location: Right arm) Pulse 71 Temp 36.3 ?C (97.4 ?F) (Temporal) Resp 14 Ht 5' 3 (1.6 m) Wt 276 lb (125 kg) SpO2 95% BMI 48.89 kg/m? Pulse Ox: SpO2 Av.7 % Min: 94 % Max: 96 % Supplemental O2: O2 Flow Rate (L/min): 2 L/min Physical Exam Constitutional: Appearance: Normal appearance. HENT: Head: Normocephalic and atraumatic. Eyes: Extraocular Movements: Extraocular movements intact. Conjunctiva/sclera: Conjunctivae normal. Cardiovascular: Rate and Rhythm: Normal rate and regular rhythm. Pulmonary: Effort: Pulmonary effort is normal. No respiratory distress. Breath sounds: Normal breath sounds. Abdominal: General: Bowel sounds are normal. Palpations: Abdomen is soft. Skin: General: Skin is warm. Neurological: General: No focal deficit present. Mental Status: She is alert and oriented to person, place, and time. Medications: Scheduled PRN amLODIPine, 10 mg, Oral, Daily aspirin, 81 mg, Oral, Daily atorvastatin, 40 mg, Oral, Nightly busPIRone, 10 mg, Oral, BID chlorthalidone, 12.5 mg, Oral, Daily cloNIDine, 0.1 mg, Oral, BID doxazosin, 2 mg, Oral, BID senna-docusate sodium, 2 tablet, Oral, BID sodium chloride 0.9%, 5-40 mL, IntraVENous, q12h spironolactone, 25 mg, Oral, Daily PRN medications: acetaminophen OR acetaminophen, bisacodyl, hydrALAZINE, labetalol, ondansetron ODT OR ondansetron, polyethylene glycol (PEG) 3350, sodium chloride, sodium chloride 0.9% Continuous Assessment Acute, acute on chronic, unstable/uncontrolled chronic problems/diagnoses: Transient Aphasia/Right hemiparesis s/p tenecteplase recrudescence of remote L CHIEF JAILER stroke in the setting of HTN emergency 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 Remote left CHIEF JAILER territory infarct and small remote lacunar infarcts in the cerebellum and left frontal lobe. Stable chronic problems affecting care, new non-acute diagnoses: HTN uncontrolled Nephrology following Norvasc clonidine chlorthalidone aldactone Renal artery stenosis 12/07 stent abdominal MRI w and w/o contrast to assess for renal artery stenosis. CKD stage 4 baseline unknown Thrombocytopenia Evaluated by hematology Abdominal US Several slightly echogenic splenic lesions, which may represent hemangiomas, but are not definitively characterized. Cannot exclude splenic metastases, lymphoma, or other splenic neoplasm. Recommend further evaluation with multiphasic MRI of the abdomen. 2. Complex cystic hepatic lesions. Recommend attention on follow-up MRI.. Left renal cyst, containing a slightly thickened septation. Recommend attention on follow-up MRI. Peripheral; blood smear Normocytic, normochromic anemia. Thrombocytopenia. Blasts and dysgranulopoiesis are not identified. No increase in schistocytes is seen. Chronic anemia No signs of bleeding Plan As a result of the above findings & factors, the following mgmt was pursued: - am labs, replace lytes prn - PT/OT/CM/SW Advance Directive: Full Code Anticipated Discharge - Date - TBD - Location -[facility] - Pending the following -clinical improvement, nephrology clearance HTN control Extended Emergency Contact Information Primary Emergency Contact: Diony Jorgeic Mobile Relation: Son Secondary Emergency Contact: C (more content not included)...[facility]04-12-2024 NoteFaxed referral and updates to [facility] per TCC request. Await review and response regarding ability to accept. TCC notified. 7000 was entered into [employer] for the [facility]. [facility]04-12-2024 Note* Care Coordination - Ayleen Gomez - 02/15/2024 9:44 AM EDT Faxed referral and updates to [facility] per TCC request. Await review and response regarding ability to accept. TCC notified. 7000 was entered into [employer] for the [facility]. [place] [id number] Note* Care Coordination - Ayleen Gomez - 02/15/2024 9:44 AM EDT Faxed referral and updates to [facility] per TCC request. Await review and response regarding ability to accept. TCC notified. 7000 was entered into [employer] for the [facility]. [id number] NoteCare Management Progress Note PER IDR yesterday PLAN - discharge today to jail facility [facility]. Family may transport. Kia done palliative care physician tasked to do 7000 and send clinicals As long as BP controlled will discharge SW aware of above . Discharge Milestones and Delays Expected Date/Time: 02/15/[address] discharge order Complete med reconciliation Case mgmt discharge readiness Clinical Stability Diagnsotic Workup Facility Choice Selection Expected Discharge History Expected Date/Time Set By Reviewed At 02/15/2024 Suzie Redding RN 02/15/2024 6:45 AM 02/15/2024 Suzie Redding RN 02/14/2024 7:19 AM 02/18/2024 Cherise Fonseca RN 02/13/2024 7:32 AM 02/18/2024 Cherise Fonseca RN 02/12/2024 7:45 AM 02/18/2024 Jose C Rueda, DO 02/11/2024 11:39 PM 02/18/2024 Jose C Rueda, DO 02/11/2024 11:25 PM Length of Stay (Days): 4 GMLOS: [address] [place], [place] [id number] Note* Care Coordination - Suzie Redding RN - 02/15/2024 6:45 AM EDT Images from the original note were not included. Care Management Progress Note PER IDR yesterday PLAN - discharge today to jail facility at [facility]. Family may transport. Kia done palliative care physician tasked to do 7000 and send clinicals As long as BP controlled will discharge SW aware of above . Discharge Milestones and Delays Expected Date/Time: 02/15/[address] discharge order Complete med reconciliation Case mgmt discharge readiness Clinical Stability Diagnsotic Workup Facility Choice Selection Expected Discharge History Expected Date/Time Set By Reviewed At 02/15/2024 Suzie Redding RN 02/15/2024 6:45 AM 02/15/2024 Suzie Redding RN 02/14/2024 7:19 AM 02/18/2024 Cherise Fonseca RN 02/13/2024 7:32 AM 02/18/2024 Cherise Fonseca RN 02/12/2024 7:45 AM 02/18/2024 Jose C Rueda DO 02/11/2024 11:39 PM 02/18/2024 Jose C Rueda DO 02/11/2024 11:25 PM Length of Stay (Days): 4 GMLOS: 2.9 [facility] [id number] Note* Care Coordination - Suzie Redding RN - 02/15/2024 6:45 AM EDT Images from the original note were not included. Care Management Progress Note PER IDR yesterday PLAN - discharge today to jail facility at [facility]. Family may transport. Kia done palliative care physician tasked to do 7000 and send clinicals As long as BP controlled will discharge SW aware of above . Discharge Milestones and Delays Expected Date/Time: 02/15/[address] discharge order Complete med reconciliation Case mgmt discharge readiness Clinical Stability Diagnsotic Workup Facility Choice Selection Expected Discharge History Expected Date/Time Set By Reviewed At 02/15/2024 Suzie Redding RN 02/15/2024 6:45 AM 02/15/2024 Suzie Redding RN 02/14/2024 7:19 AM 02/18/2024 Cherise Fonseca RN 02/13/2024 7:32 AM 02/18/2024 Cherise Fonseca RN 02/12/2024 7:45 AM 02/18/2024 Jose C Rueda DO 02/11/2024 11:39 PM 02/18/2024 Jose C Rueda DO 02/11/2024 11:25 PM Length of Stay (Days): 4 GMLOS: 2.9 Nino [id number] [facility] Reason for consultation: FREDO on CKD Chief Complaint: Stroke-like symptoms History of Presenting Illness Patient is a 83 y.o. female with PMHx significant for CKD, FAISAL, CVA, morbid obesity, renal artery stenosis, and folate deficiency who presented to [facility] ED on 02/12/2024 transferred from outside hospital after receiving TNK with chief complaint listed above, initially had presented with expressive aphasia and right hemiplegia. Of note was on cardene gtt to support her BP when getting transferred. In ED BP 112/46, Cardene gtt discontinued. Repeat CT head with no acute intracranial hemorrhage noted. Patient admitted for further evaluation and management. Hematology consulted for thrombocytopenia. Nephrology is consulted for evaluation and management of FREDO on CKD. Patient reports following with Dr Sneed in [place], [place]. Scr is currently 1.69, improving from 1.75 prior. As high as 2.13 on admission. Patient's baseline creatinine unknown, limited data for review. Per patient's daughter patient does have CKD stage 4 at baseline. Patient's home medications include spironolactone 25 mg daily as well as chlorthalidone 25 mg every other day. Patient is not on Peewee inhibitors or ARB. Patient reports not using NSAIDS. No recent exposure to IV contrast. No relative hypotension noted. No signs of hemodynamic fluctuations. Noted unable to complete renal artery duplex scan due to body habitus and bowel gas US carotid showed 60-69% stenosis in the right internal carotid artery and < 50% stenosis in the left internal carotid artery. Risk factors for CKD progression 1. Age 2. HTN 3. DM 4. Obesity Past Medical/Surgical History No past medical history on file. No past surgical history on file. Review of Systems All 12 systems reviewed and are negative except for what is mentioned in the HPI. Allergies Patient has no allergy information on record. Family History No family history on file. Social History Social History Socioeconomic History Marital status: Social Determinants of Health Food Insecurity: Patient Declined (02/14/2024) Hunger Vital Sign Worried About Running Out of Food in the Last Year: Patient declined Ran Out of Food in the Last Year: Patient declined Transportation Needs: No Transportation Needs (02/14/2024) PRAPARE - Transportation Lack of Transportation (Medical): No Lack of Transportation (Non-Medical): No Intimate Partner Violence: Not At Risk (02/14/2024) Humiliation, Afraid, Rape, and Kick questionnaire Fear of Current or Ex-Partner: No Emotionally Abused: No Physically Abused: No Sexually Abused: No Housing Stability: Unknown (02/14/2024) Housing Stability Vital Sign Unable to Pay for Housing in the Last Year: No Unstable Housing in the Last Year: No Medications Medications Prior to Admission Medication Sig Dispense Refill Last Dose acetaminophen (Tylenol) 650 MG suppository Insert 650 mg into the rectum every 4 hours as needed for mild pain (1-3). allopurinol (Zyloprim) 100 MG tablet Take 200 mg by mouth daily. aspirin 325 MG tablet Take 325 mg by mouth daily. busPIRone (Buspar) 10 MG tablet Take 10 mg by mouth 2 times daily. chlorthalidone (Hygroton) 25 MG tablet Take 25 mg by mouth every other day. cholecalciferol (Vitamin D-3) 25 MCG (1000 UT) capsule Take 1,000 Units by mouth daily. cloNIDine (Catapres) 0.1 MG tablet Take 0.1 mg by mouth 2 times daily. clopidogrel (Plavix) 75 MG tablet Take 75 mg by mouth daily. doxazosin (Cardura) 2 MG tablet Take 2 mg by mouth in the morning and 2 mg in the evening. epoetin herbert (Epogen,Procrit) 08869 UNIT/ML injection Inject 10,000 Units under the skin every 14 (fourteen) days. escitalopram (Lexapro) 20 MG tablet Take 20 mg by mouth daily. ferrous sulfate 325 (65 Fe) MG EC tablet Take 325 mg by mouth daily (with breakfast). Do not crush, chew, or split. folic acid (Folvite) 1 MG tablet Take 1 mg by mouth daily. rosuvastatin (Crestor) 10 MG tablet Take 10 mg by mouth daily. spironolactone (Aldactone) 25 MG tablet Take 25 mg by mouth daily. Current Medications: amLODIPine, 10 mg, Oral, Daily aspirin, 81 mg, Oral, Daily atorvastatin, 40 mg, Oral, Nightly busPIRone, 10 mg, Oral, BID chlorthalidone, 12.5 mg, Oral, Daily cloNIDine, 0.1 mg, Oral, BID doxazosin, 2 mg, Oral, BID senna-docusate sodium, 2 tablet, Oral, BID sodium chloride 0.9%, 5-40 mL, IntraVENous, q12h spironolactone, 25 mg, Oral, Daily Continuous Infusions: PRN Meds:PRN medications: acetaminophen OR acetaminophen, bisacodyl, hydrALAZINE, labetalol, ondansetron ODT OR ondansetron, polyethylene glycol (PEG) 3350, sodium chloride, sodium chloride 0.9% Physical Exam Vitals: 02/14/24 0217 02/14/24 0543 02/14/24 1016 02/14/24 1100 BP: (!) 130/45 153/64 (!) 209/61 150/50 BP Location: Right arm Left arm Left arm Patient Position: Lying Lying Sitting (more content not included)...[facility]04-11-2024 NoteCare Management Progress Note TCC spoke to the AL at [facility]- confirmed with dontae that patient is accepted at the TCU section /building- confirmed the address and attending to do kia for 7000 and [facility] to send discharge orders . Anticipate discharge in am if BP stable . Per TAYLOR . Covid is not an issue - updated dtr an patient- dtr says family may transport will let tcc know in am . Discharge Milestones and Delays Expected Date/Time: 02/15/[address] discharge order Complete med reconciliation Case mgmt discharge readiness Clinical Stability Diagnsotic Workup Facility Choice Selection Expected Discharge History Expected Date/Time Set By Reviewed At 02/15/2024 Suzie Redding RN 02/14/2024 7:19 AM 02/18/2024 Cherise Fonseca RN 02/13/2024 7:32 AM 02/18/2024 Cherise Fonseca RN 02/12/2024 7:45 AM 02/18/2024 Jose C Rueda DO 02/11/2024 11:39 PM 02/18/2024 Jose C Rueda, DO 02/11/2024 11:25 PM Length of Stay (Days): 3 GMLOS: [address] [place], [place] [id number] Consult note* Rebecca Rodriguez MD - 02/14/2024 1:14 PM EDTAssociated Order(s): IP CONSULT TO NEPHROLOGY [facility] Consultation Note Reason for consultation: FREDO on CKD Chief Complaint: Stroke-like symptoms History of Presenting Illness Patient is a 83 y.o. female with PMHx significant for CKD, FAISAL, CVA, morbid obesity, renal artery stenosis, and folate deficiency who presented to [facility] ED on 02/12/2024 transferred from outside hospitalafter receiving TNK with chief complaint listed above, initially had presented with expressive aphasia and right hemiplegia. Of note was on cardene gtt to support her BP when getting transferred. In ED BP 112/46, Cardene gtt discontinued. Repeat CT head with no acute intracranial hemorrhage noted. Patient admitted for further evaluation and management. Hematology consulted for thrombocytopenia. Nephrology is consulted for evaluation and management of FREDO on CKD. Patient reports following with[place] [facility] [place]. Scr is currently 1.69, improving from 1.75 prior. As high as 2.13 on admission. Patient's baseline creatinine unknown, limited data for review. Per patient's daughter patient does have CKD stage 4 at baseline. Patient's home medications include spironolactone 25 mg daily as well as chlorthalidone 25 mg everyother day. Patient is not on Peewee inhibitors or ARB. Patient reports not using NSAIDS. No recent exposure to IV contrast. No relative hypotension noted. No signs of hemodynamic fluctuations. Noted unable to complete renal artery duplex scan due to body habitus and bowel gas US carotid showed 60-69% stenosis in the right internal carotid artery and < 50% stenosis in theleft internal carotid artery. Risk factors for CKD progression 1. Age 2. HTN 3. DM 4. Obesity Past Medical/Surgical History No past medical history on file. No past surgical history on file. Review of Systems All 12 systems reviewed and are negative except for what is mentioned in the HPI. Allergies Patient has no allergy information on record. Family History No family history on file. Social History Social History Socioeconomic History Marital status: Social Determinants of Health Food Insecurity: Patient Declined (02/14/2024) Hunger Vital Sign Worried About Running Out of Food in the Last Year: Patient declined Ran Out of Food in the Last Year: Patient declined Transportation Needs: No Transportation Needs (02/14/2024) PRAPARE - Transportation Lack of Transportation (Medical): No Lack of Transportation (Non-Medical): No Intimate Partner Violence: Not At Risk (02/14/2024) Humiliation, Afraid, Rape, and Kick questionnaire Fear of Current or Ex-Partner: No Emotionally Abused: No Physically Abused: No Sexually Abused: No Housing Stability: Unknown (02/14/2024) Housing Stability Vital Sign Unable to Pay for Housing in the Last Year: No Unstable Housing in the Last Year: No Medications Medications Prior to Admission Medication Sig Dispense Refill Last Dose acetaminophen (Tylenol) 650 MG suppository Insert 650 mg into the rectum every 4 hours as needed for mild pain (1-3). allopurinol (Zyloprim) 100 MG tablet Take 200 mg by mouth daily. aspirin 325 MG tablet Take 325 mg by mouth daily. busPIRone (Buspar) 10 MG tablet Take 10 mg by mouth 2 times daily. chlorthalidone (Hygroton) 25 MG tablet Take 25 mg by mouth every other day. cholecalciferol (Vitamin D-3) 25 MCG (1000 UT) capsule Take 1,000 Units by mouth daily. cloNIDine (Catapres) 0.1 MG tablet Take 0.1 mg by mouth 2 times daily. clopidogrel (Plavix) 75 MG tablet Take 75 mg by mouth daily. doxazosin (Cardura) 2 MG tablet Take 2 mg by mouth in the morning and 2 mg in the evening. epoetin herbert (Epogen,Procrit) 09080 UNIT/ML injection Inject 10,000 Units under the skin every 14 (fourteen) days. escitalopram (Lexapro) 20 MG tablet Take 20 mg by mouth daily. ferrous sulfate 325 (65 Fe) MG EC tablet Take 325 mg by mouth daily (with breakfast). Do not crush,chew, or split. folic acid (Folvite) 1 MG tablet Take 1 mg by mouth daily. rosuvastatin (Crestor) 10 MG tablet Take 10 mg by mouth daily. spironolactone (Aldactone) 25 MG tablet Take 25 mg by mouth daily. Current Medications: amLODIPine, 10 mg, Oral, Daily aspirin, 81 mg, Oral, Daily atorvastatin, 40 mg, Oral, Nightly busPIRone, 10 mg, Oral, BID chlorthalidone, 12.5 mg, Oral, Daily cloNIDine, 0.1 mg, Oral, BID doxazosin, 2 mg, Oral, BID senna-docusate sodium, 2 tablet, Oral, BID sodium chloride 0.9%, 5-40 mL, IntraVENous, q12h spironolactone, 25 mg, Oral, Daily Continuous Infusions: PRN Meds:PRN medications: acetaminophen OR acetaminophen, bisacodyl, hydrALAZINE, labetalol, ondansetron ODT OR ondansetron, polyethylene glycol (PEG) 3350, sodium chloride, sodium chloride 0.9% Physical Exam Vitals: 02/14/24 0217 02/14/24 0543 02/14/24 1016 02/14/24 1100 BP: (!) 130/45 153/64 (!) 209/61 150/50 BP Location: Right arm Left arm Left arm Patient Position: Lying Lying Sitting Pulse: 75 74 70 Resp: 18 18 16 Temp: 36.4 C (97.5 F) 36.3 C (97.4 F) 37.1 C (98.8 F) TempSrc: Temporal Temporal Temporal SpO2: 92% 96% 94% Input / Output: 24 HR: Intake/Output Summary (Last 24 hours) at 02/14/2024 1314 Last data filed at 02/14/2024 0700 Gross per 24 hour Intake 440 ml Output 1300 ml Net -860 ml IV Intake: P.O. (mL): 200 mL Camacho: External Urinary Catheter-Output (mL): 750 mL General: Comfortable appearing, cooperative to history and physical exam. Head: NCAT Eye: anicteric sclera, conjunctiva clear Mouth: mucus membrane semi-moist Neck: Supple, no jvd Chest: B/L equal air entry, no crackles, no accessory muscles usage. CV: s1s2 heard RRR, no murmurs or rubs Abdomen: NT, distended, soft bowel sounds present, no palpable masses, obese Extremities: trace peripheral edema, no cyanosis or clubbing, bilateral UE with erythema Skin: Warm, no rash Neurological: Oriented times three, Speech clear coherent Psychiatric: normal insight and judgement, good recall Data Recent Labs 02/12/24 0044 02/13/24 0414 02/14/24 0130 WBC 7.2 6.5 6.3 HGB 10.2* 9.3* 9.5* HCT 31.4* 29.4* 29.6* MCV 91.5 94.2 92.8 PLT 74* 67* 69* Recent Labs 02/12/24 0044 02/12/24 1128 02/13/24 0414 02/14/24 0130 NA 139 137 139 140 K 4.6 4.4 4.5 4.7 CL 108* 107 111* 109* CO2 24 22 21* 24 GLUCOSE 159* 138* 131* 123* PHOS 3.6 -- 4.1 3.7 MG 1.7 -- 1.9 2.0 BUN 54* 53* 50* 52* CREATININE 2.13* 2.02* 1.75* 1.69* Albumin: No components found for: LABALBU Calcium: Lab Results Component Value Date CALCIUM 8.6 02/14/2024 Ionized Calcium: No components found for: IONCA Magnesium: Lab Results Component Value Date MG 2.0 02/14/2024 Phosphorus: Lab Results Component Value Date PHOS 3.7 02/14/2024 Imaging: reviewed ECHO 02/12/2024; Echo Findings Left Ventricle Left ventricle size is normal. Mildly increased wall thickness. Moderate septal thickening. Normal left ventricular systolic function. EF by 2D Simpsons Biplane is 77%. Normal wall motion. Right Ventricle Right ventricle is mildly dilated. Normal systolic function. Left Atrium Left atrium is mildly dilated. Interatrial Septum No interatrial shunt visualized on color Doppler. Right Atrium Right atrium size is normal. Aortic Valve Trileaflet. No cusp thickening. Mildly calcified cusps. Mild annular calcification. Trace regurgitation. No stenosis. Mitral Valve Moderate annular calcification (posterior). No regurgitation. No stenosis noted. Tricuspid Valve Valve structure is normal. No regurgitation. Unable to assess RVSP due to insignificant tricuspid regurgitation. Pulmonic Valve Valve structure is normal. Trace regurgitation. Pulmonary Artery Pulmonary artery was not well visualized. Aorta Normal sized sinuses of Valsalva. Mildly dilated ascending aorta. Ao ascending diameter is 3.5 cm. IVC/Hepatic Veins IVC diameter is normal and decreases greater than 50% during inspiration; therefore the estimated right atrial pressure is normal (~3 mmHg). Pericardium Evidence of prominent epicardial fat. No pericardial effusion. US abdomen 02/14/2024: IMPRESSION: 1. Several slightly echogenic splenic lesions, which may represent hemangiomas, but are not definitively characterized. Cannot exclude splenic metastases, lymphoma, or other splenic neoplasm. Recommend further evaluation with multiphasic MRI of the abdomen. 2. Complex cystic hepatic lesions. Recommend attention on follow-up MRI. 3. Left renal cyst, containing a slightly thickened septation. Recommend attention on follow-up MRI. No results found for: APPEARANCE, COLORU, LABSPEC, LABPH, URINE, GLUCOSEU, UROBILINOGEN, BILIRUBINUR, OCBU Assessment 83 y.o. female with FREDO on CKD (resolving) (N17.9) CKD stage 4 at baseline (N18.4) Acute ischemic stroke (I63.9) Uncontrolled hypertension (I10) Carotid artery stenosis RECOMMENDATIONS: -Scr currently 1.69, baseline unknown, non-oliguric, BP labile -Avoid hypotension and overt hemodynamic shifts -BP slowly improving, remains labile -C/w current regimen: amlodipine 10 mg daily and clonidine 0.1 mg BID started during hospitalization. Started on chlorthalidone 12.5 mg daily rather than home dose 25 mg EOD. As well as home dose spironolactone 25 mg daily and doxazosin 2mg BID -Cont to monitor blood pressures as doxazosin resumed this afternoon -Given inability to obtain renal artery duplex scan reasonable to pursue abdominal MRI w and w/o contrast to assess for renal artery stenosis. -Discussed w Radiology: Using low osmolar contrast recommended in order to prevent NSS. Risk vs benefits need to be considered. Pt also needs MRI w contrast also to evaluate spleen. -Need strict Is & Os -Daily standing weights -Dose all meds per current eGFR -Recommend close follow up with outpatient casualty insurance claim adjuster for tight control of risk factors for disease progression -Rest of management per primary team, d/w Dr Garcia We will follow along closely. Thank you for asking us to participate in the management of your patient, please do not hesitate tocontact me for any concerns regarding my recommendations as outlined above. I can be easily reachedvia Secure Chat SIGNATURE: EH Gerber PATIENT NAME: Lucho Gillespie DATE: February 14, 2024 Office [facility] [phone] [place] Phone: 1(562) 708-872404-11-2024 Consult note* Rebecca Rodriguez MD - 02/14/2024 1:14 PM EDTAssociated Order(s): IP CONSULT TO NEPHROLOGY [facility] Consultation Note Reason for consultation: FREDO on CKD Chief Complaint: Stroke-like symptoms History of Presenting Illness Patient is a 83 y.o. female with PMHx significant for CKD, FAISAL, CVA, morbid obesity, renal artery stenosis, and folate deficiency who presented to [facility] ED on 02/12/2024 transferred from outside hospitalafter receiving TNK with chief complaint listed above, initially had presented with expressive aphasia and right hemiplegia. Of note was on cardene gtt to support her BP when getting transferred. In ED BP 112/46, Cardene gtt discontinued. Repeat CT head with no acute intracranial hemorrhage noted. Patient admitted for further evaluation and management. Hematology consulted for thrombocytopenia. Nephrology is consulted for evaluation and management of FREDO on CKD. Patient reports following [place] [facility] [place]. Scr is currently 1.69, improving from 1.75 prior. As high as 2.13 on admission. Patient's baseline creatinine unknown, limited data for review. Per patient's daughter patient does have CKD stage 4 at baseline. Patient's home medications include spironolactone 25 mg daily as well as chlorthalidone 25 mg everyother day. Patient is not on Peewee inhibitors or ARB. Patient reports not using NSAIDS. No recent exposure to IV contrast. No relative hypotension noted. No signs of hemodynamic fluctuations. Noted unable to complete renal artery duplex scan due to body habitus and bowel gas US carotid showed 60-69% stenosis in the right internal carotid artery and < 50% stenosis in theleft internal carotid artery. Risk factors for CKD progression 1. Age 2. HTN 3. DM 4. Obesity Past Medical/Surgical History No past medical history on file. No past surgical history on file. Review of Systems All 12 systems reviewed and are negative except for what is mentioned in the HPI. Allergies Patient has no allergy information on record. Family History No family history on file. Social History Social History Socioeconomic History Marital status: Social Determinants of Health Food Insecurity: Patient Declined (02/14/2024) Hunger Vital Sign Worried About Running Out of Food in the Last Year: Patient declined Ran Out of Food in the Last Year: Patient declined Transportation Needs: No Transportation Needs (02/14/2024) PRAPARE - Transportation Lack of Transportation (Medical): No Lack of Transportation (Non-Medical): No Intimate Partner Violence: Not At Risk (02/14/2024) Humiliation, Afraid, Rape, and Kick questionnaire Fear of Current or Ex-Partner: No Emotionally Abused: No Physically Abused: No Sexually Abused: No Housing Stability: Unknown (02/14/2024) Housing Stability Vital Sign Unable to Pay for Housing in the Last Year: No Unstable Housing in the Last Year: No Medications Medications Prior to Admission Medication Sig Dispense Refill Last Dose acetaminophen (Tylenol) 650 MG suppository Insert 650 mg into the rectum every 4 hours as needed for mild pain (1-3). allopurinol (Zyloprim) 100 MG tablet Take 200 mg by mouth daily. aspirin 325 MG tablet Take 325 mg by mouth daily. busPIRone (Buspar) 10 MG tablet Take 10 mg by mouth 2 times daily. chlorthalidone (Hygroton) 25 MG tablet Take 25 mg by mouth every other day. cholecalciferol (Vitamin D-3) 25 MCG (1000 UT) capsule Take 1,000 Units by mouth daily. cloNIDine (Catapres) 0.1 MG tablet Take 0.1 mg by mouth 2 times daily. clopidogrel (Plavix) 75 MG tablet Take 75 mg by mouth daily. doxazosin (Cardura) 2 MG tablet Take 2 mg by mouth in the morning and 2 mg in the evening. epoetin herbert (Epogen,Procrit) 93613 UNIT/ML injection Inject 10,000 Units under the skin every 14 (fourteen) days. escitalopram (Lexapro) 20 MG tablet Take 20 mg by mouth daily. ferrous sulfate 325 (65 Fe) MG EC tablet Take 325 mg by mouth daily (with breakfast). Do not crush,chew, or split. folic acid (Folvite) 1 MG tablet Take 1 mg by mouth daily. rosuvastatin (Crestor) 10 MG tablet Take 10 mg by mouth daily. spironolactone (Aldactone) 25 MG tablet Take 25 mg by mouth daily. Current Medications: amLODIPine, 10 mg, Oral, Daily aspirin, 81 mg, Oral, Daily atorvastatin, 40 mg, Oral, Nightly busPIRone, 10 mg, Oral, BID chlorthalidone, 12.5 mg, Oral, Daily cloNIDine, 0.1 mg, Oral, BID doxazosin, 2 mg, Oral, BID senna-docusate sodium, 2 tablet, Oral, BID sodium chloride 0.9%, 5-40 mL, IntraVENous, q12h spironolactone, 25 mg, Oral, Daily Continuous Infusions: PRN Meds:PRN medications: acetaminophen OR acetaminophen, bisacodyl, hydrALAZINE, labetalol, ondansetron ODT OR ondansetron, polyethylene glycol (PEG) 3350, sodium chloride, sodium chloride 0.9% Physical Exam Vitals: 02/14/24 0217 02/14/24 0543 02/14/24 1016 02/14/24 1100 BP: (!) 130/45 153/64 (!) 209/61 150/50 BP Location: Right arm Left arm Left arm Patient Position: Lying Lying Sitting Pulse: 75 74 70 Resp: 18 18 16 Temp: 36.4 C (97.5 F) 36.3 C (97.4 F) 37.1 C (98.8 F) TempSrc: Temporal Temporal Temporal SpO2: 92% 96% 94% Input / Output: 24 HR: Intake/Output Summary (Last 24 hours) at 02/14/2024 1314 Last data filed at 02/14/2024 0700 Gross per 24 hour Intake 440 ml Output 1300 ml Net -860 ml IV Intake: P.O. (mL): 200 mL Camacho: External Urinary Catheter-Output (mL): 750 mL General: Comfortable appearing, cooperative to history and physical exam. Head: NCAT Eye: anicteric sclera, conjunctiva clear Mouth: mucus membrane semi-moist Neck: Supple, no jvd Chest: B/L equal air entry, no crackles, no accessory muscles usage. CV: s1s2 heard RRR, no murmurs or rubs Abdomen: NT, distended, soft bowel sounds present, no palpable masses, obese Extremities: trace peripheral edema, no cyanosis or clubbing, bilateral UE with erythema Skin: Warm, no rash Neurological: Oriented times three, Speech clear coherent Psychiatric: normal insight and judgement, good recall Data Recent Labs 02/12/24 0044 02/13/24 0414 02/14/24 0130 WBC 7.2 6.5 6.3 HGB 10.2* 9.3* 9.5* HCT 31.4* 29.4* 29.6* MCV 91.5 94.2 92.8 PLT 74* 67* 69* Recent Labs 02/12/24 0044 02/12/24 1128 02/13/24 0414 02/14/24 0130 NA 139 137 139 140 K 4.6 4.4 4.5 4.7 CL 108* 107 111* 109* CO2 24 22 21* 24 GLUCOSE 159* 138* 131* 123* PHOS 3.6 -- 4.1 3.7 MG 1.7 -- 1.9 2.0 BUN 54* 53* 50* 52* CREATININE 2.13* 2.02* 1.75* 1.69* Albumin: No components found for: LABALBU Calcium: Lab Results Component Value Date CALCIUM 8.6 02/14/2024 Ionized Calcium: No components found for: IONCA Magnesium: Lab Results Component Value Date MG 2.0 02/14/2024 Phosphorus: Lab Results Component Value Date PHOS 3.7 02/14/2024 Imaging: reviewed ECHO 02/12/2024; Echo Findings Left Ventricle Left ventricle size is normal. Mildly increased wall thickness. Moderate septal thickening. Normal left ventricular systolic function. EF by 2D Simpsons Biplane is 77%. Normal wall motion. Right Ventricle Right ventricle is mildly dilated. Normal systolic function. Left Atrium Left atrium is mildly dilated. Interatrial Septum No interatrial shunt visualized on color Doppler. Right Atrium Right atrium size is normal. Aortic Valve Trileaflet. No cusp thickening. Mildly calcified cusps. Mild annular calcification. Trace regurgitation. No stenosis. Mitral Valve Moderate annular calcification (posterior). No regurgitation. No stenosis noted. Tricuspid Valve Valve structure is normal. No regurgitation. Unable to assess RVSP due to insignificant tricuspid regurgitation. Pulmonic Valve Valve structure is normal. Trace regurgitation. Pulmonary Artery Pulmonary artery was not well visualized. Aorta Normal sized sinuses of Valsalva. Mildly dilated ascending aorta. Ao ascending diameter is 3.5 cm. IVC/Hepatic Veins IVC diameter is normal and decreases greater than 50% during inspiration; therefore the estimated right atrial pressure is normal (~3 mmHg). Pericardium Evidence of prominent epicardial fat. No pericardial effusion. US abdomen 02/14/2024: IMPRESSION: 1. Several slightly echogenic splenic lesions, which may represent hemangiomas, but are not definitively characterized. Cannot exclude splenic metastases, lymphoma, or other splenic neoplasm. Recommend further evaluation with multiphasic MRI of the abdomen. 2. Complex cystic hepatic lesions. Recommend attention on follow-up MRI. 3. Left renal cyst, containing a slightly thickened septation. Recommend attention on follow-up MRI. No results found for: APPEARANCE, COLORU, LABSPEC, LABPH, URINE, GLUCOSEU, UROBILINOGEN, BILIRUBINUR, OCBU Assessment 83 y.o. female with FREDO on CKD (resolving) (N17.9) CKD stage 4 at baseline (N18.4) Acute ischemic stroke (I63.9) Uncontrolled hypertension (I10) Carotid artery stenosis RECOMMENDATIONS: -Scr currently 1.69, baseline unknown, non-oliguric, BP labile -Avoid hypotension and overt hemodynamic shifts -BP slowly improving, remains labile -C/w current regimen: amlodipine 10 mg daily and clonidine 0.1 mg BID started during hospitalization. Started on chlorthalidone 12.5 mg daily rather than home dose 25 mg EOD. As well as home dose spironolactone 25 mg daily and doxazosin 2mg BID -Cont to monitor blood pressures as doxazosin resumed this afternoon -Given inability to obtain renal artery duplex scan reasonable to pursue abdominal MRI w and w/o contrast to assess for renal artery stenosis. -Discussed w Radiology: Using low osmolar contrast recommended in order to prevent NSS. Risk vs benefits need to be considered. Pt also needs MRI w contrast also to evaluate spleen. -Need strict Is & Os -Daily standing weights -Dose all meds per current eGFR -Recommend close follow up with outpatient casualty insurance claim adjuster for tight control of risk factors for disease progression -Rest of management per primary team, d/w Dr Garcia We will follow along closely. Thank you for asking us to participate in the management of your patient, please do not hesitate tocontact me for any concerns regarding my recommendations as outlined above. I can be easily reachedvia Secure Chat SIGNATURE: EH Gerber PATIENT NAME: Lucho Gillespie DATE: February 14, 2024 Office [facility] [phone] * Wilbert Chirinos MD - 02/13/2024 1:55 PM EDT Images from the original note were not included. [facility] Hematology Oncology Inpatient Consultation [facility] Lcuho Gillespie : 1940(83 y.o.) Date: February 13, 2024 Attending: Dr. Chirinos Reason for consult: thrombocytopenia Consulting - Robby Rosenberg MD Primary Care Physician - Avelino Deleon Date of Admission - 02/11/2024 11:08 PM Subjective: No chief complaint on file. HPI Lucho Gillespie is a 83 y.o. woman with a history of CKD, iron deficiency anemia on iron infusions, CVA, morbid obesity, renal artery stenosis, and folate deficiency who presented from [facility] suspected stroke, S/P TNK. We are consulted for thrombocytopenia. 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 She was referred to her PCP and has an appointment with a intensive care nurse next week for further work up. She has a long-standing history of iron deficiency anemia for which she receives iron infusions outpatient. She has not had a recent EGD or colonoscopy. Last colonoscopy was 2013, last mammogram 2014. Current Hgb is above baseline at 9.3. PLT count is 67K. We discussed checking labs and US abd to evaluate the liver/spleen and she is agreeable. 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 Never smoker. Former rare social alcohol use. No illicit drugs. No past medical history on file. No past surgical history on file. No family history on file. Social History Socioeconomic History Marital status: Spouse name: Not on file Number of children: Not on file Years of education: Not on file Highest education level: Not on file Occupational History Not on file Tobacco Use Smoking status: Not on file Smokeless tobacco: Not on file Substance and Sexual Activity Alcohol use: Not on file Drug use: Not on file Sexual activity: Not on file Other Topics Concern Not on file Social History Narrative Not on file Social Determinants of Health Financial Resource Strain: Not on file Food Insecurity: Not on file Transportation Needs: Not on file Physical Activity: Not on file Stress: Not on file Social Connections: Not on file Intimate Partner Violence: Not on file Housing Stability: Not on file Not on File Prior to Admission medications Medication Sig Start Date End Date Taking? Authorizing Provider acetaminophen (Tylenol) 650 MG suppository Insert 650 mg into the rectum every 4 hours as needed for mild pain (1-3). Historical Provider, allopurinol (Zyloprim) 100 MG tablet Take 200 mg by mouth daily. Historical Provider, aspirin 325 MG tablet Take 325 mg by mouth daily. Historical Provider, busPIRone (Buspar) 10 MG tablet Take 10 mg by mouth 2 times daily. Historical Provider, chlorthalidone (Hygroton) 25 MG tablet Take 25 mg by mouth every other day. Historical Provider, cholecalciferol (Vitamin D-3) 25 MCG (1000 UT) capsule Take 1,000 Units by mouth daily. Historical Provider, cloNIDine (Catapres) 0.1 MG tablet Take 0.1 mg by mouth 2 times daily. Historical Provider, clopidogrel (Plavix) 75 MG tablet Take 75 mg by mouth daily. Historical Provider, doxazosin (Cardura) 2 MG tablet Take 2 mg by mouth in the morning and 2 mg in the evening. Historical Provider, epoetin herbert (Epogen,Procrit) 50645 UNIT/ML injection Inject 10,000 Units under the skin every 14 (fourteen) days. Historical Provider, escitalopram (Lexapro) 20 MG tablet Take 20 mg by mouth daily. Historical Provider, ferrous sulfate 325 (65 Fe) MG EC tablet Take 325 mg by mouth daily (with breakfast). Do not crush,chew, or split. Historical ProviderMD folic acid (Folvite) 1 MG tablet Take 1 mg by mouth daily. Historical Provider, rosuvastatin (Crestor) 10 MG tablet Take 10 mg by mouth daily. Historical ProviderMD spironolactone (Aldactone) 25 MG tablet Take 25 mg by mouth daily. Historical ProviderMD Review of Systems Constitutional: Negative for activity change, appetite change, chills, diaphoresis, fatigue, fever and unexpected weight change. HENT: Negative for dental problem, facial swelling, mouth sores, nosebleeds, trouble swallowing andvoice change. No aphasia today Eyes: Negative for photophobia and visual disturbance. Respiratory: Negative for cough, shortness of breath and wheezing. Cardiovascular: Negative for chest pain and leg swelling. Gastrointestinal: Negative for abdominal distention, abdominal pain, blood in stool, constipation, diarrhea, nausea and vomiting. Endocrine: Negative for polydipsia, polyphagia and polyuria. Genitourinary: Negative for difficulty urinating and dysuria. Musculoskeletal: Negative for arthralgias, back pain and gait problem. Skin: Negative for color change, rash and wound. Neurological: Positive for weakness. Negative for dizziness, seizures, speech difficulty and headaches. Hematological: Negative for adenopathy. Bruises/bleeds easily (reports due to asa/plavix). Psychiatric/Behavioral: Negative for agitation and confusion. Objective: ECOG PS: 2 Vitals: 02/13/24 1000 02/13/24 1100 02/13/24 1200 02/13/24 1300 BP: (!) 170/58 (!) 172/54 (!) 181/62 (!) 196/116 BP Location: Left arm Patient Position: Sitting Pulse: 66 70 70 78 Resp: 17 14 20 23 Temp: TempSrc: Temporal SpO2: 98% 94% 97% 94% Wt Readings from Last 3 Encounters: No data found for Wt Physical Exam Constitutional: Appearance: Normal appearance. She is obese. She is not toxic-appearing or diaphoretic. HENT: Head: Normocephalic and atraumatic. Right Ear: External ear normal. There is no impacted cerumen. Left Ear: External ear normal. There is no impacted cerumen. Nose: Nose normal. No rhinorrhea. Mouth/Throat: Mouth: Mucous membranes are moist. Pharynx: No oropharyngeal exudate or posterior oropharyngeal erythema. Eyes: General: Right eye: No discharge. Left eye: No discharge. Conjunctiva/sclera: Conjunctivae normal. Pupils: Pupils are equal, round, and reactive to light. Cardiovascular: Rate and Rhythm: Normal rate and regular rhythm. Pulses: Normal pulses. Heart sounds: Normal heart sounds. No friction rub. No gallop. Pulmonary: Effort: Pulmonary effort is normal. No respiratory distress. Breath sounds: Normal breath sounds. No wheezing, rhonchi or rales. Chest: Chest wall: No tenderness. Abdominal: General: Bowel sounds are normal. There is no distension. Palpations: Abdomen is soft. There is no mass. Tenderness: There is no abdominal tenderness. There is no guarding. Musculoskeletal: General: No swelling, tenderness or signs of injury. Cervical back: Normal range of motion and neck supple. No rigidity. Right lower leg: Edema present. Left lower leg: Edema present. Lymphadenopathy: Cervical: No cervical adenopathy. Skin: General: Skin is warm and dry. Capillary Refill: Capillary refill takes less than 2 seconds. Coloration: Skin is not jaundiced or pale. Findings: Bruising (left hand) present. No erythema or rash. Neurological: General: No focal deficit present. Mental Status: She is alert and oriented to person, place, and time. Psychiatric: Mood and Affect: Mood normal. INTAKE/OUTPUT: Intake/Output Summary (Last 24 hours) at 02/13/2024 1355 Last data filed at 02/13/2024 1230 Gross per 24 hour Intake 2577 ml Output 800 ml Net 1777 ml Labs Lab Results Component Value Date NA 139 02/13/2024 K 4.5 02/13/2024 CL 111 (H) 02/13/2024 CO2 21 (L) 02/13/2024 BUN 50 (H) 02/13/2024 CREATININE 1.75 (H) 02/13/2024 GLUCOSE 131 (H) 02/13/2024 CALCIUM 8.4 02/13/2024 PROT 6.2 (L) 02/13/2024 BILITOT 0.7 02/13/2024 ALKPHOS 59 02/13/2024 AST 30 02/13/2024 ALT 17 02/13/2024 Lab Results Component Value Date WBC 6.5 02/13/2024 HGB 9.3 (L) 02/13/2024 HCT 29.4 (L) 02/13/2024 MCV 94.2 02/13/2024 PLT 67 (L) 02/13/2024 Imaging ECG 12 lead Result Date: 02/13/2024 Sinus rhythm Atrial premature complex LVH by voltage Nonspecific T abnormalities, lateral leads Electronically Signed On 02-13-2024 10:34:21 EDT by Sixto Limon MR brain wo contrast Result Date: 02/12/2024 Patient Name: LUCHO GILLESPIE : 1940 [facility]#: [id number] Exam Date/Time: 02/12/2024 16:28 Procedure: MR BRAIN WO CONTRAST Ordering Provider: ROSENBERG MICHAEL Reason For Exam: Stroke, follow up MRI BRAIN WITHOUT CONTRAST INDICATIONS: Stroke, follow up COMPARISON: None TECHNIQUE: Multiplanar, multisequence MRI of the brain was performed without contrast. FINDINGS: Acute Change: No evidence of acute infarction. No fluid collection or intracranial hemorrhage. Mass Lesion: None. Parenchyma: Encephalomalacia and gliosis in the left occipital lobe froma remote CHIEF JAILER territory infarct. Small remote lacunar infarcts in the cerebellar white matter bilaterally and left frontal subcortical white matter. Ventricles and sulci: Moderate generalized brain parenchymal volume loss with mild proportionate ventricular enlargement. Superimposed ex vacuo enlargement of the atrium of the left lateral ventricle. Skull base: Normal appearance of the pituitary gland. Normal position of the cerebellar tonsils. Vessels: The major intracranial flow voids are preserved. Extracranial structures: Bilateral lens replacements; otherwise, the orbits are unremarkable. No extracranial soft tissue abnormalities. Sinuses/mastoids: Clear Bones: No pathologic marrow infiltration. 1. No acute intracranial abnormalities. 2. Remote left CHIEF JAILER territory infarct and small remote lacunar infarcts in the cerebellum and left frontal lobe. Report Dictated on Electronically Signed By: River Irizarry MD Electronically Signed Date/Time: 02/12/2024 6:46 PM EDT Vascular US upper extremity venous duplex left Result Date: 02/12/2024 No evidence of deep vein or superficial vein thrombosis in the left upper extremity. Vessels demonstrate normal compressibility, color filling, and phasic and spontaneous flow. Contralateral imaging of the right subclavian vein was normal. Transthoracic echocardiogram (TTE) complete with contrast, bubble, strain, and 3D PRN Result Date: 02/12/2024 Left Ventricle: Left ventricle size is normal. Mildly increased wall thickness. Moderate septal thickening. Normal left ventricular systolic function. EF by 2D Simpsons Biplane is 77%. Normal wall motion. No thrombus or other source of embolic event is identified. Interatrial Septum: No interatrialshunt visualized on color Doppler. Right Ventricle: Right ventricle is mildly dilated. Normal systolic function. Aortic Valve: Trileaflet. No cusp thickening. Mildly calcified cusps. Mild annular calcification. Trace regurgitation. No stenosis. Left Atrium: Left atrium is mildly dilated. Aorta: Normal sized sinuses of Valsalva. Mildly dilated ascending aorta. Ao ascending diameter is 3.5 cm. XR abdomen 1 view Result Date: 02/12/2024 Patient Name: LUCHO GILLESPIE : 1940 Exam Date/Time: 02/12/2024 11:00 Procedure: XR ABDOMEN 1 VIEW Ordering Provider: ROSENBERG MICHAEL Reason For Exam: MRI clearance ABDOMEN: CLINICAL INDICATION: MRI clearance. TECHNIQUE: Supine APview of abdomen and pelvis. COMPARISON: None. FINDINGS: Eventration of right hemidiaphragm. The bowel gas pattern is unremarkable. There are scattered calculi in the distribution of the right and left kidney. Splenic artery and/or spleen calcifications are seen.. There is no organomegaly. Lumbar degenerative spondylosis. Urinary bladder is opacified with contrast. No radiopaque foreign body. No acute abdominal process. No radiopaque foreign body. Suspect tiny bilateral renal calculi ReportDictated on Electronically Signed By: Rico Hines DO ElectronicallySigned Date/Time: 02/12/2024 11:22 AM EDT XR chest 1 view Result Date: 02/12/2024 Patient Name: LUCHO GILLESPIE : 1940 Exam Date/Time: 02/12/2024 11:00 Procedure: XR CHEST 1 VIEW Ordering Provider: ROSENBERG MICHAEL Reason For Exam: MRI clearance PORTABLE CHEST CLINICAL INDICATION: MRI clearance. COMPARISON: None. TECHNIQUE: A single frontal view of thorax was obtained and reviewed. 1. Lines/ tubes/ devices: None. 2. Lungs and Pleura: No infiltrate or mass. No pneumothorax or pleural effusion. 3. Heart and mediastinum: Mild cardiomegaly. 4. Bones: Thoracic degenerative spondylosis. No radiopaque foreign body. Report Dictated on Electronically Signed By: Rico Hines DO Electronically Signed Date/Time: 02/12/2024 11:19 AM EDT ECG 12 lead if not done in the ED Sinus rhythm Short MN interval LVH with secondary repolarization abnormality Borderline prolonged QT interval no stemi no prior to compare Electronically Signed On 02-12-2024 11:14:10 EDT by Robby Figueredo CT head wo IV contrast Result Date: 02/11/2024 Patient Name: LUCHO GILLESPIE : 1940 Exam Date/Time: 02/11/2024 23:39 Procedure: CT HEAD WO IV CONTRAST Ordering Provider: SYED MADIHAH Reason For Exam: Neuro deficit, acute, stroke suspected CT HEAD: Clinical Indication: 83-year-old female; stroke protocol; left pupil is blown; patient has received TPA at another facility acouple hours ago Imaging Technique: Multiple axial 3mm CT images of the head were obtained from theskull base to the vertex. Coronal and sagittal reconstructs were rendered. Dose reduction was employed with automated exposure control. Comparison: CT head 02/11/2024 at 15:19 (outside facility) (report not available) Time: 23:25 on 02/11/2024 FINDINGS: There is no intracranial hemorrhage. There is mild global volume loss with mild spinal vessel ischemia. There is a remote old left occipital lobe infarct with encephalomalacia changes in commensurate dilatation of the adjacent lateral ventricle occipital horn. Vascular atherosclerotic calcifications are present. The sinuses are pneumatized. The globes appear symmetric. Prior lens surgery noted. The mastoid air cells are pneumatized. There is no significant change when compared to imaging performed approximately 7 hours earlier. Noacute intracranial hemorrhage. Old LEFT occipital lobe infarct. CRITICAL TEST COMMUNICATION: Dr. Syed was notified by telephone today at 11:36pm. ASPECTS: 10 Report Dictated on Electronically Signed By: Suzie Henriquez MD Electronically Signed Date/Time: 02/11/2024 11:40PM EDT Assessment and Plan: Thrombocytopenia. Check B12/folate, ferritin, peripheral smear, hepatitis studies, and US abdomen to evaluate spleen/liver. Recommend follow up with hematology closer to her home (she has an appt scheduled). Stroke recrudescence in the setting of HTN emergency. Iron deficiency anemia. Check ferritin. D/w Dr. Chirinos. The patient was given the opportunity to ask questions and all questions were answered to the best of my ability. The patient agrees with the above noted plan. Thank you for allowing us to participate in this patient's care. Please call with any questions. I have spent 17 minutes preparing to see the patient, reviewing previous notes and test results, completing clinical documentation as well as with [id number] patient care, performing a medically appropriate examination, counseling / educating the patient/family/caregiver, and ordering medications, tests, or procedures. Electronically signed by CARYN Madison CNP I have personally performed a face to face diagnostic evaluation on this patient on 02/13/24. I havereviewed and agree with the care plan. My assessment/plan are as follows: Patient is well-appearing. Unlikely to be thrombotic microangiopathy. She had thrombocytopenia 1 month ago as an outpatient. She has an appointment with hematology set up closer to home. Perform initial workup while in the hospital to evaluate reversible causes. Tests have been orderedthat include hepatitis B hepatitis C, B12, folate. I will follow-up results Patient verbalizes understanding and agrees with the plan I spent total time 55 minutes reviewing previous notes, test results, and face to face with the patient discussing the diagnosis and importance of compliance with the treatment plan as well as documenting on the day of the visit. * Katy Garcia MD - 02/11/2024 11:47 PM EDTAssociated Order(s): IP CONSULT TO NEUROLOGY STROKE TEAM NOTE Patient Name: Lucho Gillespie Patient : 1940 Acct: [id number] Date of Admission: 02/11/2024 Room/Bed: T2-213/T2-213 A PCP: No primary care provider on file. Stroke team; ED Transferred from outside hospital History of Present Ilness: 83 y.o. is R handed female with the chief Complaint of: ischemic stroke,post TNK PMH unknown Patient was transferred from OSH after receiving TNK. At OSH she was noted to have expressive aphasia, and Right hemiplegia. Her NIH was 12 at OSH. She was transferred to [facility] for further workup and treatment. Of note, she was placed on a Cardene drip to support her BP when getting transferred. At arrival to the [facility] ED, vitals were significant for BP 112/46, Cardene drip discontinued. SPO2 93% on RA. NIH completed with a total of 8 for patient not knowing month, partial hemianopia of the Right, left facial palsy, right arm drift that did not hit the bed, mild to moderate loss of sensation, aphasia, and tactile extinction/inattention. On physical exam, it was noted that she had anisocoria with the left pupil at 4mm vs the right at 2mm. A repeat CT wo contrast was completed that did not show any significant changes when compared tothe CT completed approximately 7 hrs prior. No acute intracranial hemorrhage was noted. Onset time: last seen well;1300 ED arrival: 2320 Stroke teamactivation 2251 NIHSS upon arrival:8 Associated symptoms: right arm weakness, loss of sensation, left facial palsy, aphasia This occurred in the setting of: PMH unknown Current use of anticoagulants: none If on anticoagulants when was last dose:NA Preadmission secondary prevention antiplatelets and statins:unknown History of AF:Unknown Contraindications for thrombolytic treatment: Yes- received thrombolytics prior to admissions at [facility] earlier today Home Medications: Prior to Admission medications Not on File Current Hospital Medications: Current Facility-Administered Medications: acetaminophen (Tylenol) tablet 650 mg, 650 mg, Oral, q6h PRN OR acetaminophen (Tylenol) suppository 650 mg, 650 mg, Rectal, q6h PRN, Jose C Kiza, DO atorvastatin (Lipitor) tablet 40 mg, 40 mg, Oral, Daily, Jose C Kiza, DO bisacodyl (Dulcolax) suppository 10 mg, 10 mg, Rectal, Daily PRN, Jose C Kiza, DO labetalol (Normodyne,Trandate) injection 10 mg, 10 mg, IntraVENous, q10 min PRN, Jose C Kiza, DO niCARdipine (Cardene) infusion 20mg in 0.9 % sodium chloride 200mL (premix), 2.5-15 mg/hr, IntraVENous, Continuous, Jose C Kiza, DO ondansetron ODT (Zofran-ODT) disintegrating tablet 4 mg, 4 mg, Oral, q8h PRN OR ondansetron (Zofran) injection 4 mg, 4 mg, IntraVENous, q6h PRN, Jose C Kiza, DO polyethylene glycol (PEG) 3350 (Miralax) packet 17 g, 17 g, Oral, Daily PRN, Jose C Kiza, DO sodium chloride 0.9 % infusion, 5-250 mL/hr, IntraVENous, PRN, Jose C Kiza, DO sodium chloride 0.9 % infusion, 75 mL/hr, IntraVENous, Continuous, Jose C Kiza, DO, Last Rate: 75 mL/hr at 02/12/24 0004, 75 mL/hr at 02/12/24 0004 sodium chloride 0.9% (NS) flush 5-40 mL, 5-40 mL, IntraVENous, q12h, Jose C Kiza, DO sodium chloride 0.9% (NS) flush 5-40 mL, 5-40 mL, IntraVENous, PRN, Jose C Kiza, DO Continuous Infusions: niCARdipine, 2.5-15 mg/hr sodium chloride, 75 mL/hr, Last Rate: 75 mL/hr (02/12/24 0004) Allergies: Patient has no allergy information on record. Social History: TOBACCO: has no history on file for tobacco use. ETOH: has no history on file for alcohol use. RECREATIONAL DRUG USE: Social History Substance and Sexual Activity Drug Use Not on file FamilyHistory: :. @[facility]; :A complete review of system was performed , pertinent positives noted and remainderare negative Review of Systems Respiratory: Positive for shortness of breath. Skin: Ecchymosis over dorsal left hand Neurological: Positive for tremors (bilateral upper extremities), facial asymmetry (slight left sided facial droop) and numbness. Physical Examination: Patient Vitals for the past 8 hrs: BP Temp Temp src Pulse Resp SpO2 02/12/24 0000 142/91 37.1 C (98.8 F) -- 78 16 -- 02/11/24 2326 (!) 129/113 -- -- 75 18 98 % 02/11/24 2311 (!) 112/46 37.4 C (99.4 F) Oral 78 18 93 % No intake/output data recorded. VITAL SIGNS : HR78 , BP 112/46 , RR 18. Pulse Ox 98% on 2L NC General Physical Examination: General: HEENT:Normocephalic, atraumaticl CV: S1+S2, RRR, no MRG. Pulm:CTA b/l, unlabored Abdomen: Soft NT/ND. BS + Skin: ecchymosis back of left hand Extremities: bilateral 2+ pitting edema Orthopedic limitation; N/A Pulses: Intact peripherally Carotid auscultation :No bruits Neurological Examination: Higher Functions: Mental Status Exam: Level of Alertness:Awake Orientation: Normal to self Memory: Normal Fund of Knowledge: Normal Language: Expresive aphasia Dysarthria present Cranial Nerves: -II Visual acuity: normal, wearing corrective glasses -II Visual rashid: Right Homonymous anopia -III Pupils (~ 2 mm OD, 4 mm OU) Right reactive to light -III-IV- Extraocular Movements: intact -Nystagmus not present -Saccades and pursuits normal -V Facial sensation: intact Corneal's Intact bilateral -VII Facial strength: abnormal left sided slight paralysis -VIII Hearing: intact -IX-X- Gag reflex present -X Palate:intact -XI Shoulder shrug: intactnormal -XII Tongue movement: normal Funduscopic Exam: normal, no edema or exudates both eyes Motor Examination: Tone after evaluation of 4 limbs, the following findings applied: limited testing by body habitus . all limbs -Bulk: normal -Muscle Stretchafter evaluation of all limbs, and axial musculature the following findings applied: Drift: present right arm normal other extremities -Reflexes: after evaluation of 4 limbs, the following findings applied ; normal all limbs -Plantar responce: Flexor bilaterally Sensory Decreased Coordination: Arms limited reliability of exam/ poorparticipation Legs Intact heel knee hill testing Tremors Present on both upper extremities Gait Patient unable to do gait test during evaluation NIHSS 1a Level of consciousness: 0=alert; keenly responsive 1b. LOC questions: 1=Performs one task correctly 1c. LOC commands: 0=Performs both tasks correctly 2. Best Gaze: 0=normal 3. Visual: 1=Partial hemianopia 4. Facial Palsy: 1=Minor paralysis (flattened nasolabial fold, asymmetric on smiling) 5a. Motor left arm: 0=No drift, limb holds 90 (or 45) degrees for full 10 seconds 5b. Motor right arm: 1=Drift, limb holds 90 (or 45) degrees but drifts down before full 10 seconds:does not hit bed 6a. motor left le=No drift, limb holds 90 (or 45) degrees for full 10 seconds 6b Motor right le=No drift, limb holds 90 (or 45) degrees for full 10 seconds 7. Limb Ataxia: 1=Present in one limb 8. Sensory: 1=Mild to moderate sensory loss; patient feels pinprick is less sharp or is dull on theaffected side; there is a loss of superficial pain with pinprick but patient is aware She is being touched 9. Best Language: 1=Mild to moderate aphasia; some obvious loss of fluency or facility of comprehension without significant limitation on ideas expressed or form of expression. 10. Dysarthria: 0=Normal 11. Extinction and Inattention: 1=Visual, tactile, auditory, spatial or personal inattention or extinction to bilateral simultaneous stimulation in one of the sensory modalities 12. Distal motor function: 0=Normal Total: 8 Ancillary Data: Labs: Recent Results (from the past 24 hour(s)) ECG 12 lead if not done in the ED Collection Time: 02/12/24 12:12 AM Result Value Ref Range Heart Rate 78 bpm QRSD Interval 99 ms QT Interval 432 ms QTC Interval 493 ms P [place] 0 degrees QRS [place] 1 degrees T Wave [place] 35 degrees MN Interval 70 ms No results for input(s): PH, PO2, PCO2, HCO3, O2SAT in the last 72 hours. No lab exists for component: BE No results for input(s): INR in the last 72 hours. Radiology: CT head: 02/11/24 5423 There is no significant change when compared to imaging performed approximately 7 hours earlier. Noacute intracranial hemorrhage. Old LEFT occipital lobe infarct. CTA: Not completed CT perfusion: Not completed ASSESSMENT Ischemic stroke, post TNK PLAN/RECOMMENDATIONS: Admit to ICU T2 - Neurochecks q15 minutes x 1 hour, followed by q30 minutes x 6 hours and then q1h x 24 hours SBP <180 mmHg, DBP <110 mmHg, MAP >65 mmHg - Complete bedrest - No antiplatelets/antiothrombotics in first 24 hours after tPA - NPO until swallow evaluation - NO invasive lines, (camacho/NG/central line or arterial punctures at non- compressible sites for 24 hours) - repeat CT head in 24 hours after tPA or with any change in neurological examination unless MRI isdone instead. - MRI brain without contrast. (Add contrast if MRA neck is being done with contrast ) - MRA head without contrast (Do NOT ORDER IF CTA done in ED) - MRA neck with and without contrast (Do NOT ORDER IF CTA done in the ED) ( No contrast if allergy or CRF) - TTE (Do NOT ORDER IF PATIENT WITH KNOWN AF or IF one done in last 6 months) - Telemetry monitoring for 24 hrs - Fall precautions - Speech and Swallow evaluation, nutrition consultation - Physical and occupational therapy consultation - Rehab consultation - IPC for VTE prevention Reason for no use of thrombolytic if applicable: Received thrombolytic at outside hospital prior totransfer Reason if no thrombectomy if applicable: not identified vascular occlusion accesable for intervention Discussed with Dr. Syed Associated attestation - Charlie Syed MD - 02/12/2024 5:19 PM EDT Neurocritical Care Attending: Attestation of Stroke Team Date of Stroke Team 02/11/24 I personally spent total critical care time [x] 34, []50 , [] 70 minutes performing a face to face diagnostic evaluation of this patient in company of my : []BERTA [] resident [] Medical student and reviewing stat labs, stat imaging studies and the electronic medical record, performing a history/physical examination of patient; as well as counseling/coordinating care, discussion urgent management, diagnostic impressions and the plan of care with the toña ent/emergency department. I personally attended and ran the emergent stroke team intended for urgent evaluation and treatmentof acute progressive neurological changes. I have reviewed the note written as above by my: []BERTA [x] resident and agree with all documented the following additions: 83-year-old patient with hypertension, renal artery stenosis, CKD and previous ischemic stroke-[facility] of sudden onset of right hemiparesis and aphasia. Received the initial phone call from OSH ER physician-patient had been given IV tenecteplase within the window at [place] ED. patient was markedly hypertensive with a systolic blood pressure in the 200s requiring Cardene infusion before she was able to safely receive the IV tenecteplase dose. I reviewed the CTA head and neck and noncontrast CT head which was performed at OSH prior to her transfer. There was no acute LVO. Initial NIHSS of 14-patient was transported by ground ED to ED for stroke team evaluation. On arrival to our emergency room I examined the patient via telemetry robot with assistance of stroke team. NIHSS improved to 8-patient with right arm drift, expressive and receptive aphasia, and a visual field deficit. On further evaluation patient was noted to have left eye ptosis as well as a large left pupil that was 4 mm and nonreactive to light, compared to the right pupil which was 2 mm and briskly reactive to light. Although this would be concerning for intracranial compression, patient's mental status was alert and interactive and neurological exam is actually improved. Shewas aphasic and unable to tell us if this was a previous finding due to for example and eye surgery. Therefore we obtained a stat CT head to ensure there was no hemorrhagic transformation after tenecteplase. Stat CT head was reviewed by myself she has evidence of an old ischemic stroke with encephalomalacia in the left parietal occipital cortex. But there was no acute intracranial hemorrhage. Patient was taken to T2 ICU for continued post tenecteplase care-please see stroke order set Charlie Syed MD Neurocritical Care Attending Pager: [phone] documented in this [facility]04-11-2024 Note* Care Coordination - Suzie Redding RN - 02/14/2024 12:30 PM EDT Images from the original note were not included. Care Management Progress Note TCC spoke to the AL at [facility]- confirmed with dontae that patient is accepted at the TCU section /building- confirmed the address and attending to do kia for [address] and palliative care physician to send discharge orders . Anticipate discharge in am if BP stable . Per TAYLOR . Covid is not an issue - updated dtr an patient- dtr says family may transport will let tcc know in am . Discharge Milestones and Delays Expected Date/Time: 02/15/[address] discharge order Complete med reconciliation Case mgmt discharge readiness Clinical Stability Diagnsotic Workup Facility Choice Selection Expected Discharge History Expected Date/Time Set By Reviewed At 02/15/2024 Suzie Redding RN 02/14/2024 7:19 AM 02/18/2024 Cherise Fonseca RN 02/13/2024 7:32 AM 02/18/2024 Cherise Fonseca RN 02/12/2024 7:45 AM 02/18/2024 Jose C Rueda DO 02/11/2024 11:39 PM 02/18/2024 Jose C Rueda DO 02/11/2024 11:25 PM Length of Stay (Days): 3 [facility]OS[id number]* Care Coordination - Suzie Redding RN - 02/14/2024 12:30 PM EDT Images from the original note were not included. Care Management Progress Note TCC spoke to the AL at [facility]- confirmed with lulu the taylor that patient is accepted at the TCU section /building- confirmed the address and attending to [facility] [address] and [facility] to send discharge orders . Anticipate discharge in am if BP stable . Per TAYLOR . Covid is not an issue - updated dtr an patient- dtr says family may transport will let tcc know in am . Discharge Milestones and Delays Expected Date/Time: 02/15/[address] discharge order Complete med reconciliation Case mgmt discharge readiness Clinical Stability Diagnsotic Workup Facility Choice Selection Expected Discharge History Expected Date/Time Set By Reviewed At 02/15/2024 Suzie Redding RN 02/14/2024 7:19 AM 02/18/2024 Cherise Fonseca RN 02/13/2024 7:32 AM 02/18/2024 Cherise Fonseca RN 02/12/2024 7:45 AM 02/18/2024 Jose C Rueda DO 02/11/2024 11:39 PM 02/18/2024 Jose C Rueda DO 02/11/2024 11:25 PM Length of Stay (Days): 3 GMLOS[facility]9 [id number] NoteFaxed referral and updates to [facility] at [phone] TCC request. Await review and response regarding ability to accept. TCC notified. [facility]04-11-2024 NotePROGRESS NOTE. STROKE SERVICE Patient Name:Lucho Gillespie Patient : 1940 Acct: [id number] Date of Admission: 02/11/2024 [facility]: [facility] PCP: Avelino Deleon Patient location ICU Remains in the hospital due to persistent unresolved acute issues, Chief complaint: aphasia/R hemiparesis New Complain: No documented events overnight. Moved out of the ICU. SBP have been 130-170s. Afebrile. CUS and VL dup lower completed yesterday. Nursing documenting NIH of 6. Upon seeing her this morning, she was looking good awake in the bed after returning from US. Neurologically intact. Sedation:No Diet/TF:regular Camacho: No VTE prophylaxis: YES SCDs Antithrombotic therapy in first 24 hrs: YES aspirin n Statin therapy for stroke stroke patients: High intensity Anticoagulation on AF patients: N/A no history of AF Activity: PT/OT Disposition: TBD Current Hospital Medications: Current Facility-Administered Medications: acetaminophen (Tylenol) tablet 650 mg, 650 mg, Oral, q6h PRN OR acetaminophen (Tylenol) suppository 650 mg, 650 mg, Rectal, q6h PRN, Jose C Rueda DO amLODIPine (Norvasc) tablet 10 mg, 10 mg, Oral, Daily, Karthikeyan Rosenberg MD, 10 mg at 02/14/24821 aspirin EC tablet 81 mg, 81 mg, Oral, Daily, Charlie Syed MD, 81 mg at 02/14/24821 atorvastatin (Lipitor) tablet 40 mg, 40 mg, Oral, Nightly, Jose C Kiza, DO, 40 mg at 02/13/242133 bisacodyl (Dulcolax) suppository 10 mg, 10 mg, Rectal, Daily PRN, Jose C Kiza, DO busPIRone (Buspar) tablet 10 mg, 10 mg, Oral, BID, Charlie Syed MD, 10 mg at 02/14/24821 chlorthalidone (Hygroton) tablet 12.5 mg, 12.5 mg, Oral, Daily, Farnaz Downing DO, 12.5 mg at 02/14/24821 cloNIDine (Catapres) tablet 0.1 mg, 0.1 mg, Oral, BID, Charlie Syed MD, 0.1 mg at 02/14/24 0545 hydrALAZINE (Apresoline) injection 10 mg, 10 mg, IntraVENous, q4h PRN, Charlie Syed MD, 10 mg at 02/13/24 1812 labetalol (Normodyne,Trandate) injection 10 mg, 10 mg, IntraVENous, q1h PRN, Charlie Syed MD, 10 mg at 02/13/24 1737 ondansetron ODT (Zofran-ODT) disintegrating tablet 4 mg, 4 mg, Oral, q8h PRN OR ondansetron (Zofran) injection 4 mg, 4 mg, IntraVENous, q6h PRN, Jose C Kiza, DO polyethylene glycol (PEG) 3350 (Miralax) packet 17 g, 17 g, Oral, Daily PRN, Jose C Kiza, DO, 17 g at 02/13/24 2134 sodium chloride 0.9 % infusion, 5-250 mL/hr, IntraVENous, PRN, Jose C Kiza, DO sodium chloride 0.9% (NS) flush 5-40 mL, 5-40 mL, IntraVENous, q12h, Jose C Kiza, DO, 10 mL at 02/13/24 2335 sodium chloride 0.9% (NS) flush 5-40 mL, 5-40 mL, IntraVENous, PRN, Jose C Rueda DO spironolactone (Aldactone) tablet 25 mg, 25 mg, Oral, Daily, Rosario Allen DO [place], 25 mg at 02/14/24 0822 Continuous Infusions: Allergies: Patient has no allergy information on record. Review of Systems Unable to perform ROS: Acuity of condition Objective: Telemetry: Arrhythmia:No Physical Examination: Patient Vitals for the past 8 hrs: BP Temp Temp src Pulse Resp SpO2 02/14/24 0543 153/64 36.3 ?C (97.4 ?F) Temporal 74 18 96 % 02/14/24 0217 (!) 130/45 36.4 ?C (97.5 ?F) Temporal 75 18 92 % I/O last 3 completed shifts: In: 3017 [P.O.:1320; I.V.:1697] Out: 1350 [Urine:1350] General Physical Examination: General:morbidly obese elderly female HEENT:Normocephalic, atraumaticl L eye ptosis CV: S1+S2, RRR, no MRG. Pulm:CTA b/l, unlabored Abdomen: Soft NT/ND. BS + Skin: petechial hemorrhages on bilateral arms into palms of hands Extremities: bilateral lower leg edema Orthopedic limitation; N/A Pulses: Intact peripherally Carotid auscultation :No bruits Neurological Examination: Higher Functions: Mental Status Exam: Level of Alertness:Awake Orientation: Normal toself, time, place Memory: Abnormal Fund of Knowledge: Normal Language: Normal Dysarthria not present Cranial Nerves: -II Visual acuity: abnormal, limited due to patient unable to perform exam -II Visualfields: partial hemianopia R lower visual field of each eye -III Pupils (~ 3 mm OD, 6 mm OU) reactive R pupil, non reactive L pupil -III-IV- Extraocular Movements: intact -Nystagmus not present -Saccades and pursuits normal -V Facial sensation: intact Corneal's Intact bilateral -VII Facial strength:intact -VIII Hearing: intact -IX-X - Gag reflex present -X Palate: intact -XI Shoulder shrug: intact -XII Tongue movement: not participant MotorExamination: Tone after evaluation of 4 limbs, the following findings applied: Normal -Bulk: normal -Muscle Stretch afterevaluation of all limbs, and axial musculature the following findings applied: Drift: absent . -Reflexes: after evaluation of 4 limbs, the following findings applied ; normal all limbs -Plantar responce: Flexor bilaterally Sensory Intact to light touch, pain / temperature, proprioception, Coordination: Arms Normal finger to nose Legs limited reliability of ex (more content not included)...[facility] 02-14-2024 NoteAttempted renal artery duplex. Unable to visualize kidney or aorta due to bowel gas, body habitus and tenderness. 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 Hanna), CKD and previous ischemic stroke who presented to [facility] as an OSH transfer from [place] for presumed CVA (NIH of 14) s/p TNK. Pt was found to have initial L facial and RUE weakness w/aphasia at SNF and brought to the hospital. Pt was also noted to be hypertensive w/SBP in 200's, started on a cardene gtt prior to TNK. Upon arrival, pt's NIH was 8, with partial hemianopia on the right, L facial palsy, RUE weakness, and tactile extinction/inattention. Anisocoria was noted that night, prompting head CT to r/o hemorrhage, in which it was negative. 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 Later it was learned from family that anisocoria has been present since prior stroke in 2021. Interval Events: Re-evaluation of pt shows resolution of facial weakness, UE weakness. Remaining are aphasia, improved, and her baseline anisocoria. Pt's LUE also became erythemetous w/purple discoloration, sensation in tact and painless, but venous duplex US of LUE was negative. MRI revealed remote L CHIEF JAILER infarct w/small lacunar ichemia in cerebellum and L frontal lobe. No evidence of new stroke. Pt deemed to not have had a stroke, but HTN emergency with stroke recrudescence. EEG negative for seizure activity, confirmed voltage asymmetry on the left posterior quadrant aligning w/prior stroke. TTE showed no embolic source, EF of 77%. US of Carotid Artery BL ordered, but not completed. Pt's HTN improved in that SBP<180 off Cardene gtt. Resumed much of her home medication, added amlodipine 10mg, and today adding chlorthalidone but 12.5mg daily rather than 25mg every other day. Thrombocytopenia noted, per family, this was noted in nephrology labs a few weeks ago OP and hematology referral was placed. Neurology ordered peripheral smear and duplex US of BL LE to r/o consumptive coagulopathy. Currently not on prophylaxis for DVT as a result. Pt stable and is cleared for transfer to [facility] for further HTN regimen and thrombocytopenia workup. Hematology consulted and Checking B12/folate, ferritin, peripheral smear, hepatitis studies, and US abdomen to evaluate spleen/liver. Recommend follow up with hematology closer to her home (she has an appt scheduled). EEG showed findings supporting of a LEFT posterior-quadrant structural abnormality and are concordant with the patient's known remote left CHIEF JAILER stroke as seen on neuroimaging. 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 LUE US Duplex negative for DVT. US Carotid showed 60-69% stenosis in the right internal carotid artery and <50% stenosis in the left internal carotid artery. Unable to obtain Vascular renal artery ultrasound due to body habitus and bowel gas. Would not recommend CTA with runoffs with her underlying CKD. Abdominal US showed multiple abnormalities, obtaining Abd MRI with and without contrast that will also assess for renal artery stenosis. Also consulted Nephrology for further recs Past Medical History: No past medical history on file. Past Surgical History: No past surgical history on file. Social History: Social History Socioeconomic History Marital status: Spouse name: Not on file Number of children: Not on file Years of education: Not on file Highest education level: Not on file Occupational History Not on file Tobacco Use Smoking status: Not on file Smokeless tobacco: Not on file Substance and Sexual Activity Alcohol use: Not on file Drug use: Not on file Sexual activity: Not on file Other Topics Concern Not on file Social History Narrative Not on file Social Determinants of Health Financial Resource Strain: Not on file Food Insecurity: Not on file Transportation Needs: Not on file Physical Activity: Not on file Stress: Not on file Social Connections: Not on file Intimate Partner Violence: Not on file Housing Stability: Not on file Family History: No family history on file. Medications Prior to Admission: No current facility-administered medications on file prior to encounter. Current Outpatient Medications on File Prior to Encounter Medication Sig Dispense Refill acetaminophen (Tylenol) 650 MG suppository Insert 650 mg into the rectum every 4 hours as needed for mild pain (1-3). allopurinol (Zyloprim) 100 MG tablet Take 200 mg by mouth daily. aspirin 325 MG tablet Take 325 mg by mouth daily. busPIRone (Buspar) 10 MG tablet Take 10 (more content not included)...[facility]04-11-2024 Note* Care Coordination - Ayleen Gomez - 02/14/2024 8:50 AM EDT Faxed referral and updates to [facility] at [phone] TCC request. Await review and response regarding ability to accept. TCC notified. [id number]* Care Coordination - Ayleen Gomez - 02/14/2024 8:50 AM EDT Faxed referral and updates to [facility] at [phone] TCC request. Await review and response regarding ability to accept. TCC notified. [place] [id number] Procedure note* Munir Foy - 02/14/2024 8:17 AM EDT Attempted renal artery duplex. Unable to visualize kidney or aorta due to bowel gas, body habitus and tenderness. Informed patient's RN and will secure chat ordering doctor. [id number] Procedure note* Munir Law - 02/14/2024 8:17 AM EDT Attempted renal artery duplex. Unable to visualize kidney or aorta due to bowel gas, body habitus and tenderness. Informed patient's RN and will secure chat ordering doctor. * Kris Shahid MD - 02/13/2024 8:09 AM EDTAssociated Order(s): EEG Procedure(s): EEG Images from the original note were not included. [facility] [address] [place] [id number] ROUTINE EEG REPORT Patient Name: Lucho Gillespie : 1940 Date of Study: 02/13/24 Duration Recorded: 22 minutes EEG#: [id number] HEATING EQUIPMENT INSTALLER: Rufina Beltran PROVIDER REQUESTING STUDY: Charlie Syed MD REASON FOR EXAM: Evaluate for seizures DIAGNOSIS TAG: Stroke Remote (RS) HISTORY: Lucho Gillespie is a 83 y.o. female patient with hypertension, renal artery stenosis, CKD and previous ischemic stroke-[facility] of sudden onset of right hemiparesis and aphasia. Received the initial phone call from OSH ER physician-patient had been given IV tenecteplase within the window at [place] ED. patient was markedly hypertensive with a syst olic blood pressure in the 200s requiring Cardene infusion before she was able to safely receive the IV tenecteplase dose. CTA head and neck and noncontrast CT head revealed no acute LVO. Initial NIHSS of 14-patient was transported by ground ED to ED for stroke team evaluation. NIHSS improved to 8-patient with right arm drift, expressive and receptive aphasia, and a visual field deficit. On further evaluation patient was noted to have left eye ptosis as well as a large left pupil that was 4 mm and nonreactive to light, compared to the right pupil which was 2 mm and briskly reactive to light. Although this would be concerning for intracranial compression, patient's mental status was alert and interactive and neurological exam is actually improved. She was aphasic and unable to tell us if this was a previous finding due to for example and eye surgery. Therefore we obtained a stat CT head to ensure there was no hemorrhagic transformation after tenecteplase. Stat CT head revealed evidenceof an old ischemic stroke with encephalomalacia in the left parietal occipital cortex. But there was no acute intracranial hemorrhage. Patient was taken to T2 ICU for continued post tenecteplase care-please see stroke order set. MEDICATIONS: Current Facility-Administered Medications Medication Dose Route Frequency Provider Last Rate Last Admin acetaminophen (Tylenol) tablet 650 mg 650 mg Oral q6h PRN Jose C Claudeza, DO Or acetaminophen (Tylenol) suppository 650 mg 650 mg Rectal q6h PRN Jose C Claudeza, DO amLODIPine (Norvasc) tablet 5 mg 5 mg Oral Daily Rosario Pratt, DO 5 mg at 02/12/241857 aspirin EC tablet 81 mg 81 mg Oral Daily Charlie Syed MD 81 mg at 02/12/241857 atorvastatin (Lipitor) tablet 40 mg 40 mg Oral Nightly Jose C Kiza, DO bisacodyl (Dulcolax) suppository 10 mg 10 mg Rectal Daily PRN Jose Cmarcelina Arceza, DO busPIRone (Buspar) tablet 10 mg 10 mg Oral BID Charlie Syed MD 10 mg at 02/12/242009 cloNIDine (Catapres) tablet 0.1 mg 0.1 mg Oral BID Charlie Syed MD 0.1 mg at 02/13/24 06 hydrALAZINE (Apresoline) injection 10 mg 10 mg IntraVENous q4h PRN Charlie Syed MD 10 mg at 02/12/24 180 labetalol (Normodyne,Trandate) injection 10 mg 10 mg IntraVENous q1h PRN Charlie Syed MD 10 mg at 02/12/24 1725 ondansetron ODT (Zofran-ODT) disintegrating tablet 4 mg 4 mg Oral q8h PRN Jose C Rueda, Or ondansetron (Zofran) injection 4 mg 4 mg IntraVENous q6h PRN Jose C Kiza, DO polyethylene glycol (PEG) 3350 (Miralax) packet 17 g 17 g Oral Daily PRN Jose C Kiza, DO sodium chloride 0.9 % infusion 5-250 mL/hr IntraVENous PRN Jose C Kiza, DO sodium chloride 0.9 % infusion 50 mL/hr IntraVENous Continuous Charlie Syed MD 50 mL/hr at 02/12/24 1622 50 mL/hr at 02/12/24 1622 sodium chloride 0.9% (NS) flush 5-40 mL 5-40 mL IntraVENous q12h Jose C Kiza, DO 10 mL at 02/12/24 2333 sodium chloride 0.9% (NS) flush 5-40 mL 5-40 mL IntraVENous PRN Jose C Kiza, DO spironolactone (Aldactone) tablet 25 mg 25 mg Oral Daily Rosario Pratt, DO 25 mg at 02/12/242009 TECHNICAL ASPECTS: This routine scalp EEG study with video was carried out at [facility]. Scalp electrodes were positioned in person by an computer technologist, following patient education, according to the 10-20 International system of electrode placement and maintained for integrity and quality of the recording. EEG data was recorded continuously and digitally stored. The computer technologist reviewed all automated detections and manual events and prepared the data for archiving and provider review. Referential and bipolar montages were used for review. TECHNOLOGIST NOTES: No skull or scalp defects were observed. BACKGROUND ACTIVITY: Posterior background activity: A continuous organized and well-modulated 8.5-9.5 Hz, 20-40 uV rhythm was seen over the posterior head regions bilaterally with a right sided predominance. Beta range: Fronto-centrally predominant beta range activity (15-25 Hz, 10-20 uV) was seen. Sleep: Stage N2 sleep was reached as evidenced by the appearance of vertex waves and sleep spindlesseen symmetrically over the central head regions bilaterally. Normal Variants: No normal variants were identified. Voltage asymmetry was observed with decreased amplitudes over the left posterior quadrant (A3-H3-O6-P7-O1, voltage difference greater than 50 %). 07:56:09 -PDR + asymmetry, decreased amplitudes, left hemisphere (AP Bipolar) SLOWING: No abnormal slowing was seen. INTERICTAL EPILEPTIFORM ACTIVITY: No epileptiform activity was seen. ICTAL ACTIVITY: No ictal activity was seen. NON-EPILEPTIC EVENTS: None. ACTIVATION PROCEDURES: Photic stimulation was not performed. Hyperventilation was not performed. IMPRESSION AND ACTIONS TAKEN: This routine EEG with video is abnormal. Voltage asymmetry is observed with decreased amplitudes over the LEFT posterior quadrant. No interictal epileptiform activity nor seizures are observed. Sleep architecture is seen. Normal background rhythms are observed over the right hemisphere. 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 Maurice Morgan, PhD Clinical Neurophysiologist Kris Shahid MD, PHD Epilepsy Attending documented in this [facility]04-11-2024 History and physical note* Ge Garcia, DO - 02/14/2024 7:22 AM EDT Images from the original note were not included. 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 Hanna), CKD and previous ischemic stroke who presented to [facility] as an OSH transfer from [place] for presumed CVA (NIH of 14) s/p TNK. Pt was found tohave initial L facial and RUE weakness w/aphasia at SNF and brought to the hospital. Pt was also noted to be hypertensive w/SBP in 200's, started on a cardene gtt prior to TNK. Upon arrival, pt's NIHwas 8, with partial hemianopia on the right, L facial palsy, RUE weakness, and tactile extinction/inattention. Anisocoria was noted that night, prompting head CT to r/o hemorrhage, in which it was negative. 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 Later it was learned from family that anisocoria has been present since prior stroke [id number]. Interval Events: Re-evaluation of pt shows resolution of facial weakness, UE weakness. Remaining are aphasia, improved, and her baseline anisocoria. Pt's LUE also became erythemetous w/purple discoloration, sensationin tact and painless, but venous duplex US of LUE was negative. MRI revealed remote L CHIEF JAILER infarct w/small lacunar ichemia in cerebellum and L frontal lobe. No evidence of new stroke. Pt deemed to not have had a stroke, but HTN emergency with stroke recrudescence.EEG negative for seizure activity, confirmed voltage asymmetry on the left posterior quadrant aligning w/prior stroke. TTE showed no embolic source, EF of 77%. US of Carotid Artery BL ordered, but not completed. Pt's HTN improved in that SBP<180 off Cardene gtt. Resumed much of her home medication, added amlodipine 10mg, and today adding chlorthalidone but 12.5mg daily rather than 25mg every other day. Thrombocytopenia noted, per family, this was noted in nephrology labs a few weeks ago OP and hematology referral was placed. Neurology ordered peripheral smear and duplex US of BL LE to r/o consumptive coagulopathy. Currently not on prophylaxis for DVT as a result. Pt stable and is cleared for transfer to [facility] for further HTN regimen and thrombocytopenia workup. Hematology consulted and Checking B12/folate, ferritin, peripheral smear, hepatitis studies, and USabdomen to evaluate spleen/liver. Recommend follow up with hematology closer to her home (she has an appt scheduled). EEG showed findings supporting of a LEFT posterior-quadrant structural abnormality and are concordant with the patient's known remote left CHIEF JAILER stroke as seen on neuroimaging. 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 LUE US Duplex negative for DVT. US Carotid showed 60-69% stenosis in the right internal carotid artery and <50% stenosis in the left internal carotid artery. Unable to obtain Vascular renal artery ultrasound due to body habitus and bowel gas. Would not recommend CTA with runoffs with her underlying CKD. Abdominal US showed multiple abnormalities, obtaining Abd MRI with and without contrast that will also assess for renal artery stenosis. Also consulted Nephrology for further recs Past Medical History: No past medical history on file. Past Surgical History: No past surgical history on file. Social History: Social History Socioeconomic History Marital status: Spouse name: Not on file Number of children: Not on file Years of education: Not on file Highest education level: Not on file Occupational History Not on file Tobacco Use Smoking status: Not on file Smokeless tobacco: Not on file Substance and Sexual Activity Alcohol use: Not on file Drug use: Not on file Sexual activity: Not on file Other Topics Concern Not on file Social History Narrative Not on file Social Determinants of Health Financial Resource Strain: Not on file Food Insecurity: Not on file Transportation Needs: Not on file Physical Activity: Not on file Stress: Not on file Social Connections: Not on file Intimate Partner Violence: Not on file Housing Stability: Not on file Family History: No family history on file. Medications Prior to Admission: No current facility-administered medications on file prior to encounter. Current Outpatient Medications on File Prior to Encounter Medication Sig Dispense Refill acetaminophen (Tylenol) 650 MG suppository Insert 650 mg into the rectum every 4 hours as needed for mild pain (1-3). allopurinol (Zyloprim) 100 MG tablet Take 200 mg by mouth daily. aspirin 325 MG tablet Take 325 mg by mouth daily. busPIRone (Buspar) 10 MG tablet Take 10 mg by mouth 2 times daily. chlorthalidone (Hygroton) 25 MG tablet Take 25 mg by mouth every other day. cholecalciferol (Vitamin D-3) 25 MCG (1000 UT) capsule Take 1,000 Units by mouth daily. cloNIDine (Catapres) 0.1 MG tablet Take 0.1 mg by mouth 2 times daily. clopidogrel (Plavix) 75 MG tablet Take 75 mg by mouth daily. doxazosin (Cardura) 2 MG tablet Take 2 mg by mouth in the morning and 2 mg in the evening. epoetin herbert (Epogen,Procrit) 30115 UNIT/ML injection Inject 10,000 Units under the skin every 14 (fourteen) days. escitalopram (Lexapro) 20 MG tablet Take 20 mg by mouth daily. ferrous sulfate 325 (65 Fe) MG EC tablet Take 325 mg by mouth daily (with breakfast). Do not crush,chew, or split. folic acid (Folvite) 1 MG tablet Take 1 mg by mouth daily. rosuvastatin (Crestor) 10 MG tablet Take 10 mg by mouth daily. spironolactone (Aldactone) 25 MG tablet Take 25 mg by mouth daily. Allergies: Not on File REVIEW OF SYSTEMS: ROS negative except for what is mentioned in HPI CBC: Recent Labs 02/12/24 0044 02/13/2441302/14/24 013 WBC 7.2 6.5 6.3 RBC 3.43* 3.12* 3.19* HGB 10.2* 9.3* 9.5* HCT 31.4* 29.4* 29.6* MCV 91.5 94.2 92.8 RDW 14.3 14.5 14.3 PLT 74* 67* 69* BMP: Recent Labs 02/12/24 1128 02/13/24 0414 02/14/24 013 NA 137 139 140 K 4.4 4.5 4.7 CL 107 111* 109* CO2 22 21* 24 BUN 53* 50* 52* CREATININE 2.02* 1.75* 1.69* GLUCOSE 138* 131* 123* CALCIUM 8.5 8.4 8.6 ANIONGAP 8 7 8 LIVER PROFILE: Recent Labs 02/12/24 1128 02/13/2441302/14/24 013 AST 37 30 30 ALT 18 17 18 BILITOT 0.6 0.7 0.7 ALKPHOS 57 59 58 PROT 6.3 6.2* 6.1* PT/INR: No results for input(s): PROTIME, INR in the last 72 hours. CARDIAC ENZYMES: Recent Labs 02/12/24 0408 02/12/24 0705 02/12/241127 TROPONINI 0.245* 0.341* 0.318* Procalcitonin: No results found for: PROCAL Urine Culture: No results found for this or any previous visit. COVID-19 PCR: No results for input(s): COVID19 in the last 72 hours. I reviewed: [x] laboratory results [x] radiographic results At the time of today's encounter. Pt was advised of the results. Vitals: BP 153/64 (BP Location: Left arm, Patient Position: Lying) Pulse 74 Temp 36.3 C (97.4 F) (Temporal) Resp 18 SpO2 96% Pulse Ox: SpO2 Av.1 % Min: 90 % Max: 98 % Supplemental O2: O2 Flow Rate (L/min): 2 L/min PHYSICAL EXAM: GENERAL: appears comfortable and stated age CARDIOVASCULAR: regular RESPIRATORY: clear without rhonchi ABDOMEN: non distended, obese EXTREMITIES: moving appropriately, B/L arm redness CHRONIC ANATOMY/TUBES/LINES: Left eye pupil dilation (chronic) Assessment and Plan Lucho Gillespie is an 83yo female w/PMHx of hypertension, renal artery stenosis, CKD and previousischemic stroke who presented to [facility] as an OSH transfer from [place] for presumed CVA (NIH of 14) s/p TNK. Pt was found to have initial L facial and RUE weakness w/aphasia at SNF and brought to the ospital. Pt was also noted to be hypertensive w/SBP in 200's, started on a cardene gtt prior to TNK. Upon arrival, pt's NIH was 8, with partial hemianopia on the right, L facial palsy, RUE weakness, and tactile extinction/inattention. Anisocoria was noted that night, prompting head CT to r/o hemorrhage, in which it was negative. 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 Later it was learned from family that anisocoria has been present since prior stroke in 2021. Interval Events: Re-evaluation of pt shows resolution of facial weakness, UE weakness. Remaining are aphasia, improved, and her baseline anisocoria. Pt's LUE also became erythemetous w/purple discoloration, sensationin tact and painless, but venous duplex US of LUE was negative. MRI revealed remote L CHIEF JAILER infarct w/small lacunar ichemia in cerebellum and L frontal lobe. No evidence of new stroke. Pt deemed to not have had a stroke, but HTN emergency with stroke recrudescence.EEG negative for seizure activity, confirmed voltage asymmetry on the left posterior quadrant aligning w/prior stroke. TTE showed no embolic source, EF of 77%. US of Carotid Artery BL ordered, but not completed. Pt's HTN improved in that SBP<180 off Cardene gtt. Resumed much of her home medication, added amlodipine 10mg, and today adding chlorthalidone but 12.5mg daily rather than 25mg every other day. Thrombocytopenia noted, per family, this was noted in nephrology labs a few weeks ago OP and hematology referral was placed. Neurology ordered peripheral smear and duplex US of BL LE to r/o consumptive coagulopathy. Currently not on prophylaxis for DVT as a result. Pt stable and is cleared for transfer to [facility] for further HTN regimen and thrombocytopenia workup. Hematology consulted and Checking B12/folate, ferritin, peripheral smear, hepatitis studies, and USabdomen to evaluate spleen/liver. Recommend follow up with hematology closer to her home (she has an appt scheduled). EEG showed findings supporting of a LEFT posterior-quadrant structural abnormality and are concordant with the patient's known remote left CHIEF JAILER stroke as seen on neuroimaging. 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 LUE US Duplex negative for DVT. US Carotid showed 60-69% stenosis in the right internal carotid artery and <50% stenosis in the left internal carotid artery. Unable to obtain Vascular renal artery ultrasound due to body habitus and bowel gas. Would not recommend CTA with runoffs with her underlying CKD. Abdominal US showed multiple abnormalities, obtaining Abd MRA with and without contrast to assess for renal artery stenosis. Also consulted Nephrology for further recs Radiology recommends separate Abdominal MRI with and without contrast to assess several slightly echogenic splenic lesions, Complex cystic hepatic lesions, and Left renal cyst IF NEEDED INPATIENT. Splenic lesions possibly related to thrombocytopenia? 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 Hanna) As a result of the above findings & factors, the following mgmt was pursued: - Unsure of underlying cause to hypertensive event - Checking ESR, CRP, and TSH to rule out other causes - Renal MRA with and without contrast to assess for renal artery stenosis - Consider Abd MRI with and without contrast 24 hours after MRA per Radiology to further assess intraabdominal findings, IP vs. OP - Nephro consulted for further recs - From [place] area: - Had followed with Vascular Dr. Hanna - Had followed with Nephro Dr. Sneed - PCP to refer her to hematology appointment for thrombocytopenia - am labs, replace lytes prn - PT/OT/CM/SW as appropriate - delirium precautions: limit night-time awakening - DVT prophylaxis: SCDs Complexity: Acute illness or injury posing a threat to life or body function (HIGH). Ordered MRI, consulted Nephro, investigating precipitating event Risk: Admission to hospital-level care was considered or occurred (HIGH). Advance Directive: Full Anticipated Discharge - Date - next 24 hours - Location - PT recommending SNF - Pending the following - Abd MRA, Nephro recs, Possible MRA (IP vs. OP) Total time spent (which include face to face and non face to face encounters) in minutes: 85 Toxic drug monitoring/narrow therapeutic index drug monitoring : # Drug name : aspirin # Route administered : oral # Method of monitoring : platelets and exam for bleeding Extended Emergency Contact Information Primary Emergency Contact: Jose C Jorge Mobile Relation: Son Secondary Emergency Contact: Violetta Koroma Mobile Relation: Daughter Ge Garcia DO Division of Hospitalist Medicine Inpatient Medical Services/[address] [address] Physician Medicare Certification Post-Hospital SNF Care Patient Name: Lucho Gillespie Medicare Number: [id number] - (Medicare) Attending Provider: Ge Garcia DO Admitting Provider: Joy Page DO Admission Date: 02/11/2024 I certify that post-hospital SNF care is required at a skilled level on a daily basis on behalf of the above named patient that, as a practical matter, can only be provided in a SNF. The SNF care is needed for a condition for which the individual received inpatient care in a participating hospital. Additional justification (if applicable): hard to control hypertension, Chronic thrombocytopenia, morbid obesity, debility Name: Ge Garcia DO Date: 02/14/2024 2:13 PM [place] Phone: 1(321) 204-972804-11-2024 History and physical note* Ge Garcia DO - 02/14/2024 7:22 AM EDT Images from the original note were not included. 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 Hanna), CKD and previous ischemic stroke who presented to [facility] as an OSH transfer from [place] for presumed CVA (NIH of 14) s/p TNK. Pt was found tohave initial L facial and RUE weakness w/aphasia at SNF and brought to the hospital. Pt was also noted to be hypertensive w/SBP in 200's, started on a cardene gtt prior to TNK. Upon arrival, pt's NIHwas 8, with partial hemianopia on the right, L facial palsy, RUE weakness, and tactile extinction/inattention. Anisocoria was noted that night, prompting head CT to r/o hemorrhage, in which it was negative. 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 Later it was learned from family that anisocoria has been present since prior stroke [id number]. Interval Events: Re-evaluation of pt shows resolution of facial weakness, UE weakness. Remaining are aphasia, improved, and her baseline anisocoria. Pt's LUE also became erythemetous w/purple discoloration, sensationin tact and painless, but venous duplex US of LUE was negative. MRI revealed remote L CHIEF JAILER infarct w/small lacunar ichemia in cerebellum and L frontal lobe. No evidence of new stroke. Pt deemed to not have had a stroke, but HTN emergency with stroke recrudescence.EEG negative for seizure activity, confirmed voltage asymmetry on the left posterior quadrant aligning w/prior stroke. TTE showed no embolic source, EF of 77%. US of Carotid Artery BL ordered, but not completed. Pt's HTN improved in that SBP<180 off Cardene gtt. Resumed much of her home medication, added amlodipine 10mg, and today adding chlorthalidone but 12.5mg daily rather than 25mg every other day. Thrombocytopenia noted, per family, this was noted in nephrology labs a few weeks ago OP and hematology referral was placed. Neurology ordered peripheral smear and duplex US of BL LE to r/o consumptive coagulopathy. Currently not on prophylaxis for DVT as a result. Pt stable and is cleared for transfer to [facility] for further HTN regimen and thrombocytopenia workup. Hematology consulted and Checking B12/folate, ferritin, peripheral smear, hepatitis studies, and USabdomen to evaluate spleen/liver. Recommend follow up with hematology closer to her home (she has an appt scheduled). EEG showed findings supporting of a LEFT posterior-quadrant structural abnormality and are concordant with the patient's known remote left CHIEF JAILER stroke as seen on neuroimaging. 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 LUE US Duplex negative for DVT. US Carotid showed 60-69% stenosis in the right internal carotid artery and <50% stenosis in the left internal carotid artery. Unable to obtain Vascular renal artery ultrasound due to body habitus and bowel gas. Would not recommend CTA with runoffs with her underlying CKD. Abdominal US showed multiple abnormalities, obtaining Abd MRI with and without contrast that will also assess for renal artery stenosis. Also consulted Nephrology for further recs Past Medical History: No past medical history on file. Past Surgical History: No past surgical history on file. Social History: Social History Socioeconomic History Marital status: Spouse name: Not on file Number of children: Not on file Years of education: Not on file Highest education level: Not on file Occupational History Not on file Tobacco Use Smoking status: Not on file Smokeless tobacco: Not on file Substance and Sexual Activity Alcohol use: Not on file Drug use: Not on file Sexual activity: Not on file Other Topics Concern Not on file Social History Narrative Not on file Social Determinants of Health Financial Resource Strain: Not on file Food Insecurity: Not on file Transportation Needs: Not on file Physical Activity: Not on file Stress: Not on file Social Connections: Not on file Intimate Partner Violence: Not on file Housing Stability: Not on file Family History: No family history on file. Medications Prior to Admission: No current facility-administered medications on file prior to encounter. Current Outpatient Medications on File Prior to Encounter Medication Sig Dispense Refill acetaminophen (Tylenol) 650 MG suppository Insert 650 mg into the rectum every 4 hours as needed for mild pain (1-3). allopurinol (Zyloprim) 100 MG tablet Take 200 mg by mouth daily. aspirin 325 MG tablet Take 325 mg by mouth daily. busPIRone (Buspar) 10 MG tablet Take 10 mg by mouth 2 times daily. chlorthalidone (Hygroton) 25 MG tablet Take 25 mg by mouth every other day. cholecalciferol (Vitamin D-3) 25 MCG (1000 UT) capsule Take 1,000 Units by mouth daily. cloNIDine (Catapres) 0.1 MG tablet Take 0.1 mg by mouth 2 times daily. clopidogrel (Plavix) 75 MG tablet Take 75 mg by mouth daily. doxazosin (Cardura) 2 MG tablet Take 2 mg by mouth in the morning and 2 mg in the evening. epoetin herbert (Epogen,Procrit) 88473 UNIT/ML injection Inject 10,000 Units under the skin every 14 (fourteen) days. escitalopram (Lexapro) 20 MG tablet Take 20 mg by mouth daily. ferrous sulfate 325 (65 Fe) MG EC tablet Take 325 mg by mouth daily (with breakfast). Do not crush,chew, or split. folic acid (Folvite) 1 MG tablet Take 1 mg by mouth daily. rosuvastatin (Crestor) 10 MG tablet Take 10 mg by mouth daily. spironolactone (Aldactone) 25 MG tablet Take 25 mg by mouth daily. Allergies: Not on File REVIEW OF SYSTEMS: ROS negative except for what is mentioned in HPI CBC: Recent Labs 02/12/24 0044 02/13/24 0414 02/14/24 0130 WBC 7.2 6.5 6.3 RBC 3.43* 3.12* 3.19* HGB 10.2* 9.3* 9.5* HCT 31.4* 29.4* 29.6* MCV 91.5 94.2 92.8 RDW 14.3 14.5 14.3 PLT 74* 67* 69* BMP: Recent Labs 02/12/24 1128 02/13/24 0414 02/14/24 0130 NA 137 139 140 K 4.4 4.5 4.7 CL 107 111* 109* CO2 22 21* 24 BUN 53* 50* 52* CREATININE 2.02* 1.75* 1.69* GLUCOSE 138* 131* 123* CALCIUM 8.5 8.4 8.6 ANIONGAP 8 7 8 LIVER PROFILE: Recent Labs 02/12/24 1128 02/13/24 0414 02/14/24 0130 AST 37 30 30 ALT 18 17 18 BILITOT 0.6 0.7 0.7 ALKPHOS 57 59 58 PROT 6.3 6.2* 6.1* PT/INR: No results for input(s): PROTIME, INR in the last 72 hours. CARDIAC ENZYMES: Recent Labs 02/12/24 0408 02/12/24 0705 02/12/24 1128 TROPONINI 0.245* 0.341* 0.318* Procalcitonin: No results found for: PROCAL Urine Culture: No results found for this or any previous visit. COVID-19 PCR: No results for input(s): COVID19 in the last 72 hours. I reviewed: [x] laboratory results [x] radiographic results At the time of today's encounter. Pt was advised of the results. Vitals: BP 153/64 (BP Location: Left arm, Patient Position: Lying) Pulse 74 Temp 36.3 C (97.4 F) (Temporal) Resp 18 SpO2 96% Pulse Ox: SpO2 Av.1 % Min: 90 % Max: 98 % Supplemental O2: O2 Flow Rate (L/min): 2 L/min PHYSICAL EXAM: GENERAL: appears comfortable and stated age CARDIOVASCULAR: regular RESPIRATORY: clear without rhonchi ABDOMEN: non distended, obese EXTREMITIES: moving appropriately, B/L arm redness CHRONIC ANATOMY/TUBES/LINES: Left eye pupil dilation (chronic) Assessment and Plan Lucho Gillespie is an 83yo female w/PMHx of hypertension, renal artery stenosis, CKD and previousischemic stroke who presented to [facility] as an OSH transfer from [place] for presumed CVA (NIH of 14) s/p TNK. Pt was found to have initial L facial and RUE weakness w/aphasia at SNF and brought to the ospital. Pt was also noted to be hypertensive w/SBP in 200's, started on a cardene gtt prior to TNK. Upon arrival, pt's NIH was 8, with partial hemianopia on the right, L facial palsy, RUE weakness, and tactile extinction/inattention. Anisocoria was noted that night, prompting head CT to r/o hemorrhage, in which it was negative. 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 Later it was learned from family that anisocoria has been present since prior stroke in 2021. Interval Events: Re-evaluation of pt shows resolution of facial weakness, UE weakness. Remaining are aphasia, improved, and her baseline anisocoria. Pt's LUE also became erythemetous w/purple discoloration, sensationin tact and painless, but venous duplex US of LUE was negative. MRI revealed remote L CHIEF JAILER infarct w/small lacunar ichemia in cerebellum and L frontal lobe. No evidence of new stroke. Pt deemed to not have had a stroke, but HTN emergency with stroke recrudescence.EEG negative for seizure activity, confirmed voltage asymmetry on the left posterior quadrant aligning w/prior stroke. TTE showed no embolic source, EF of 77%. US of Carotid Artery BL ordered, but not completed. Pt's HTN improved in that SBP<180 off Cardene gtt. Resumed much of her home medication, added amlodipine 10mg, and today adding chlorthalidone but 12.5mg daily rather than 25mg every other day. Thrombocytopenia noted, per family, this was noted in nephrology labs a few weeks ago OP and hematology referral was placed. Neurology ordered peripheral smear and duplex US of BL LE to r/o consumptive coagulopathy. Currently not on prophylaxis for DVT as a result. Pt stable and is cleared for transfer to [facility] for further HTN regimen and thrombocytopenia workup. Hematology consulted and Checking B12/folate, ferritin, peripheral smear, hepatitis studies, and USabdomen to evaluate spleen/liver. Recommend follow up with hematology closer to her home (she has an appt scheduled). EEG showed findings supporting of a LEFT posterior-quadrant structural abnormality and are concordant with the patient's known remote left CHIEF JAILER stroke as seen on neuroimaging. 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 LUE US Duplex negative for DVT. US Carotid showed 60-69% stenosis in the right internal carotid artery and <50% stenosis in the left internal carotid artery. Unable to obtain Vascular renal artery ultrasound due to body habitus and bowel gas. Would not recommend CTA with runoffs with her underlying CKD. Abdominal US showed multiple abnormalities, obtaining Abd MRA with and without contrast to assess for renal artery stenosis. Also consulted Nephrology for further recs Radiology recommends separate Abdominal MRI with and without contrast to assess several slightly echogenic splenic lesions, Complex cystic hepatic lesions, and Left renal cyst IF NEEDED INPATIENT. Splenic lesions possibly related to thrombocytopenia? 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 Hanna) As a result of the above findings & factors, the following mgmt was pursued: - Unsure of underlying cause to hypertensive event - Checking ESR, CRP, and TSH to rule out other causes - Renal MRA with and without contrast to assess for renal artery stenosis - Consider Abd MRI with and without contrast 24 hours after MRA per Radiology to further assess intraabdominal findings, IP vs. OP - Nephro consulted for further recs - From [place] area: - Had followed with Vascular Dr. Hanna - Had followed with Nephro Dr. Sneed - PCP to refer her to hematology appointment for thrombocytopenia - am labs, replace lytes prn - PT/OT/CM/SW as appropriate - delirium precautions: limit night-time awakening - DVT prophylaxis: SCDs Complexity: Acute illness or injury posing a threat to life or body function (HIGH). Ordered MRI, consulted Nephro, investigating precipitating event Risk: Admission to hospital-level care was considered or occurred (HIGH). Advance Directive: Full Anticipated Discharge - Date - next 24 hours - Location - PT recommending SNF - Pending the following - Abd MRA, Nephro recs, Possible MRA (IP vs. OP) Total time spent (which include face to face and non face to face encounters) in minutes: 85 Toxic drug monitoring/narrow therapeutic index drug monitoring : # Drug name : aspirin # Route administered : oral # Method of monitoring : platelets and exam for bleeding Extended Emergency Contact Information Primary Emergency Contact: Jose C Jorge Mobile Relation: Son Secondary Emergency Contact: Violetta Koroma Mobile Relation: Daughter Ge Garcia Division of Hospitalist Medicine Inpatient Medical Services/[address] [id number] Physician Medicare Certification Post-Hospital SNF Care Patient Name: Lucho Gillespie Medicare Number: [id number] - (Medicare) Attending Provider: Ge Garcia DO Admitting Provider: Joy Page DO Admission Date: 02/11/2024 I certify that post-hospital SNF care is required at a skilled level on a daily basis on behalf of the above named patient that, as a practical matter, can only be provided in a SNF. The SNF care is needed for a condition for which the individual received inpatient care in a participating hospital. Additional justification (if applicable): hard to control hypertension, Chronic thrombocytopenia, morbid obesity, debility Name: Ge Garcia DO Date: 02/14/2024 2:13 PM * Katy Garcia MD - 02/12/2024 12:00 AM EDT Images from the original note were not included. Internal Medicine: MICU Initial History and Physical Name: Lucho Gillespie : 1940(83 y.o.) Date: 02/12/24 Attending: Dr. Page Subjective: Chief Complaint: Stroke, post TNK HPI: Patient was transferred from OSH after receiving TNK. At OSH she was noted to have expressive aphasia, and Right hemiplegia. Her NIH was 12 at OSH. She was transferred to [facility] for further workup and treatment. Of note, she was placed on a Cardene drip to support her BP when getting transferred. At arrival to the [facility] ED, vitals were significant for BP 112/46, Cardene drip discontinued. SPO2 93% on RA. NIH completed with a total of 8 for patient not knowing month, partial hemianopia of the Right, left facial palsy, right arm drift that did not hit the bed, mild to moderate loss of sensation, aphasia, and tactile extinction/inattention. On physical exam, it was noted that she had anisocoria with the left pupil at 4mm vs the right at 2mm. A repeat CT wo contrast was completed that did not show any significant changes when compared tothe CT completed approximately 7 hrs prior. No acute intracranial hemorrhage was noted. No past medical history on file. No past surgical history on file. No family history on file. Social History Socioeconomic History Marital status: Not on file Spouse name: Not on file Number of children: Not on file Years of education: Not on file Highest education level: Not on file Occupational History Not on file Tobacco Use Smoking status: Not on file Smokeless tobacco: Not on file Substance and Sexual Activity Alcohol use: Not on file Drug use: Not on file Sexual activity: Not on file Other Topics Concern Not on file Social History Narrative Not on file Social Determinants of Health Financial Resource Strain: Not on file Food Insecurity: Not on file Transportation Needs: Not on file Physical Activity: Not on file Stress: Not on file Social Connections: Not on file Intimate Partner Violence: Not on file Housing Stability: Not on file Not on File Prior to Admission medications Not on File Objective: Oxygen Delivery: O2 Flow Rate (L/min): 2 L/min VITALS: BP 142/91 Pulse 78 Temp 37.1 C (98.8 F) Resp 16 SpO2 98% CURRENT PULSE OXIMETRY: SpO2: 98 % Review of Systems Unable to perform ROS: Acuity of condition Constitutional: Negative for fever. Eyes: Left eyelid droop Respiratory: Positive for shortness of breath. Cardiovascular: Positive for leg swelling. Skin: Ecchymosis left dorsal hand Neurological: Positive for tremors, facial asymmetry, speech difficulty and numbness. Constitutional: General Appearance []WDWN [x]Obese []Cachectic []Thin []Ill Eyes: Inspection of Pupils/Irises Pupils round and react: [x]Yes-anisocoria, left pupil dilated to 4mm vs 2mm right []No Sclera: []Icteric [x]Non-Icteric Inspection of Conjunctiva/Lids Conjunctiva: []Injected [x]Non-Injected Lids: [x]Intact []Lesion Present ENT/Mouth: External Inspection of ears/nose [x] Normal [] Scar/Lesion/Mass Inspection of teeth/lips/gums Dentition: [x]Ione Teeth []Dentures Lips/Gums: [x]Intact []Lesion Present Mucosa: [x][place] [x]Moist []Dry Neck: External Appearance Overall Appearance: [x]Normal []Lesion/Mass/Crepitus Present Trachea midline: [x]Yes []No Thyroid [x]Normal []Enlarged []Tender []Mass []Absent Respiratory: Respiratory effort []Labored [x]Non-Labored [] Mechanically-Ventilated Auscultation [x]Clear []Crackles []Wheezes []Rhonchi Cardiovascular: Auscultation Rate: [x]Regular []Irregular []Tachycardia []Bradycardia Rhythm: [x]Regular []Irregular Murmur: []Present [x]Absent Extremities Peripheral Edema: [x]Present- +2 pitting edema []Absent Varicosities: [x]Present []Absent Gastrointestinal: Abdomen Palpation: [x]Soft []Firm []Tender []Non-Tender [x]Distended []Non-distended Mass: []Present [x]Absent Bowel Sounds: [x]Present []Absent Hernia: []Present [x]Absent Liver/Spleen: []Hepatosplenomegaly [x]Organomegaly Absent Musculoskeletal: Inspection of Digits and Nails Cyanosis: []Present [x]Absent Clubbing: []Present [x]Absent Ischemia: []Present [x]Absent Infection: []Present [x]Absent Extremities DE JESUS Equally: Except ([x]RUE []RLE []LUE []LLE) Strength/Tone: Intact and Normal ([x]RUE [x]RLE [x]LUE [x]LLE) Skin: Inspection []Normal [x]Ecchymosis present left dorsal right hand []Lesion []Ulcer Palpation [x]Warm []Cool []Dry []Clammy []Nodules []Induration []Skin-tightening Cap-Refill: [] <3 sec [] >3 seconds (delayed) Neurologic: GCS EYE: 4 - Opens spontaneously GCS MOTOR: 6 - Obeys commands for movement GCS VERBAL: 5 - Oriented to person, place, time... Only to person Total GCS: 14-15 [x] Sensation reduced Psych: Mental Status Alert: [x]Yes [] No Oriented: []x0 [x]X1 []X2 []x3 Mood/Affect [x]Normal []Flat []Agitated []Depressed []Anxious []Calm []Sedated []NAD [facility] Labs within last 24 hours- BMP: No results for input(s): NA, K, CL, CO2, BUN, CREATININE, CALCIUM, MG, PHOS in the last 72 hours. LFTs: No results for input(s): AST, ALT, PROT, ALBUMIN, BILITOT, BILIRUBINU, ALKPHOS,LIPASE in the last 72 hours. Glucose: No results for input(s): GLUCOSE, POCGLU, BHYDRXBUT in the last 72 hours. Procal: No results for input(s): PROCAL in the last 72 hours. CBC: No results for input(s): WBC, HGB, HCT, PLT, MCV, RDW in the last 72 hours. ABGs: No results for input(s): PHART, TSM3LTG, PO2ART, HXF1EKW, SO2ART, T1TKJHIL in thelast 72 hours. Lactic Acid: No results for input(s): LACTATE in the last 72 hours. INR: No results for input(s): INR in the last 72 hours. Cardiac Injury Profile: No results for input(s): CKTOTAL, CKMB, TROPONINI in the last 72 hours. Labs in Last 3 months: No results found for: TSH, VITD25, PSA, INR, GLUF Microbiology- Urine Cx: No results found for: URINECX Blood Cx: No results found for: BLOODCX Sputum Cx: No results found for: RESPCULT Gram Stain: No results found for: LABGRAM PNA PCR: No results found for: HUMANMETAPNE COVID19: No results found for: COVID19 Legionella Ag: No results found for: LEGIONELLAPN Strep Ag: No results for input(s): STREPPNEUMO in the last 72 hours. Imaging- CT head wo IV contrast Result Date: 02/11/2024 Patient Name: LUCHO GILLESPIE : 1940 Exam Date/Time: 02/11/2024 23:39 Procedure: CT HEAD WO IV CONTRAST Ordering Provider: SYED MADIHAH Reason For Exam: Neuro deficit, acute, stroke suspected CT HEAD: Clinical Indication: 83-year-old female; stroke protocol; left pupil is blown; patient has received TPA at another facility acouple hours ago Imaging Technique: Multiple axial 3mm CT images of the head were obtained from theskull base to the vertex. Coronal and sagittal reconstructs were rendered. Dose reduction was employed with automated exposure control. Comparison: CT head 02/11/2024 at 15:19 (outside facility) (report not available) Time: 23:25 on 02/11/2024 FINDINGS: There is no intracranial hemorrhage. There is mild global volume loss with mild spinal vessel ischemia. There is a remote old left occipital lobe infarct with encephalomalacia changes in commensurate dilatation of the adjacent lateral ventricle occipital horn. Vascular atherosclerotic calcifications are present. The sinuses are pneumatized. The globes appear symmetric. Prior lens surgery noted. The mastoid air cells are pneumatized. There is no significant change when compared to imaging performed approximately 7 hours earlier. Noacute intracranial hemorrhage. Old LEFT occipital lobe infarct. CRITICAL TEST COMMUNICATION: Dr. Syed was notified by telephone today at 11:36pm. ASPECTS: 10 Report Dictated on Electronically Signed By: Suzie Henriquez MD Electronically Signed Date/Time: 02/11/2024 11:40PM EDT CTA and CTP from other facility available in patient's physical chart Assessment and Plan: Principal Problem: Ischemic stroke (HCC) Assessment: Ischemic stroke: partial hemianopia of the Right, left facial palsy, right arm drift, loss of sensation, aphasia, and tactile extinction/inattention. Status post TNK. Debility Plan: Admit to ICU T2 - Neurochecks q15 minutes x 1 hour, followed by q30 minutes x 6 hours and then q1h x 24 hours SBP <180 mmHg, DBP <110 mmHg, MAP >65 mmHg -Cardene drip for SBP less than 180mmgHg and DBP less than 110 mmHg - Complete bedrest - No antiplatelets/antiothrombotics in first 24 hours after tPA - NPO until swallow evaluation - NO invasive lines, (camacho/NG/central line or arterial punctures at non- compressible sites for 24 hours) - repeat CT head in 24 hours after tPA or with any change in neurological examination unless MRI isdone instead. - MRI brain without contrast. (Add contrast if MRA neck is being done with contrast ) - MRA head without contrast (Do NOT ORDER IF CTA done in ED) - MRA neck with and without contrast (Do NOT ORDER IF CTA done in the ED) ( No contrast if allergy or CRF) - TTE (Do NOT ORDER IF PATIENT WITH KNOWN AF or IF one done in last 6 months) - Telemetry monitoring for 24 hrs - Fall precautions - Speech and Swallow evaluation, nutrition consultation - Physical and occupational therapy consultation - Rehab consultation - IPC for VTE prevention -Obtain records from other facility and complete med rec. GI Prophylaxis: Pantoprazole IV DVT Prophylaxis: No antiplatelets/antiothrombotics in first 24 hours after tPA. SCDs for now BMI Classification: There is no height or weight on file to calculate BMI. Disposition: Admit to ICU, T2 Associated attestation - Joy Page DO - 02/12/2024 1:30 AM EDT Admitted to T2 for post stroke care after suspected CVA with fibrinolytic administered prior to arrival. Initially patient with left sided weakness, and aphasia. Now patient aphasia is improved but still present per son, left arm weakness improving as well but still slightly weak Neuro/psych: - No acute pain/sedation infusion needs - MRI in daytime - CVA core measures Cardio/hemodynamic: - Hemodynamically stable without vasopressors/inotropes -BP at goal without medications Pulm/resp: No respiratory distress GI: - Diet pending swallow eval Renal/: - Camacho Not indicated, External urinary collection appropriate - Fluids per NCC - I/O Goal even - Cr 2.13 unsure baseline ID: - Source none - Abx none indicated - Cultures reportedly sent at OSH, - Afebrile but temp is elevated Endo: - Insulin ICS PRn - Steroids not indicated No results found for: POCGLU Heme: - ppx per protocol after 24 hours - Hgb/plt low - no evidence of hemodynamically significant bleeding Global: ICU Length of stay - 1h Dispo: MICU Barrier to transfer: 24 hours post fibrinolytics I reviewed the BERTA/Resident's note and agree with the documented findings and plan of care. The reason the patient is critically ill and the nature of the treatment and management provided by the teaching physician () to manage the critically ill patient is: Ischemic stroke (HCC) The patient was critically ill during the time that I saw the patient. The Critical Care Time excluding procedures was 35 minutes Joy Page DO documented in this [facility]04-10-2024 Plan of care note* Care Plan - Estephania Mann RN - 02/13/2024 10:28 PM EDT The patient is Moderately Stable - Low risk of patient condition declining or worsening The patient's goals for the shift include The clinical goals for the shift include safety Over the shift, the patient did not make progress toward the following goals. Barriers to progression include Problem: Knowledge Deficit Goal: Patient/family/caregiver demonstrates understanding of disease process, treatment plan, medications, and discharge instructions Outcome: Progressing Problem: Potential for Compromised Skin Integrity Goal: Skin Integrity is Maintained or Improved Outcome: Progressing Goal: Nutritional status is improving Outcome: Progressing Problem: Potential for Aspiration Goal: Non-ventilated patient's risk of aspiration is minimized Outcome: Progressing [id number] Nurse Note* Markie Fontaine RN - 02/13/2024 6:46 PM EDT Report called to [address] [place]. Will put patient in for transport. [id number] Nurse Note* Markie Fontaine RN - 02/13/2024 6:46 PM EDT Report called to [address] [place]. Will put patient in for transport. * Markie Fontaine RN - 02/13/2024 10:[address] Syed talking with patient and family. documented in this [facility]04-10-2024 NoteSpoke to patients daughter Violetta notified her that referral [facility] and [facility] will call either her or Jose C patients son to schedule follow up.[facility]04-10-2024 NoteOCCUPATIONAL THERAPY [facility] Initial Evaluation Name/MRN: Lucho Gillespie ([id number]) Evaluation Date: 02/13/2024 Date of : 1940 Admission Date: 02/11/2024 11:08 PM Age: 83 y.o. Room/Bed: T2-213/T2213 A Discharge Recommendation: Care Home Facility Assessment IMPRESSION: Pt presented with CVA s/p TNK. Pt previously required some assist with ADLs but IND with mobility. Pt currently requires mod assist for standing and transfers from recliner to bed, pt also required max assist for sit > supine and total assist for ADLs. OT recommending SNF Performance Deficits /Impairments: Decreased Functional Mobility, Decreased ADL status, Decreased Strength, Decreased Endurance, Decreased Balance, and Decreased High Level IADLs Prognosis: Good and Fair Decision Making: Medium Complexity Subjective Pt seated in recliner, needed back to bed for echo, agreeable to OT eval. Pain: Pt denies any current pain. Past Medical History: No past medical history on file. Past Surgical History: No past surgical history on file. Admission Diagnosis: Patient Active Problem List Diagnosis Date Noted Ischemic stroke (HCC) 02/11/2024 Medical Precautions: No active isolations Proper PPE donned/doffed in accordance with facility standards. Fall Risk: Stephen Fall Risk Score: 60 (High Risk) Precautions/Restrictions: Lines/Drains/Airways: tele, chair alarm Family/Caregiver Present: child(katelyn) Overall Cognitive Status: grossly functional, occasional cues for sequencing Overall Orientation Status: Oriented to Place and Oriented to Person Social/Functional History Patient admitted from [facility]. Assistive Equipment: rollator Prior Level of Function ADL Assistance: Needs Assist Ambulation Assistance: Independent Transfer Assistance: Independent Objective ADLs Anticipate max assist for ADLs Upper Extremity Assessment AROM: Not formally assessed this date but via observation at least WFL PROM: Not assessed this session Strength: WFL Vision: not assessed this session Hearing: normal Bed Mobility Sit to supine: Max Assist Transfers/Functional Mobility Sit to stand: Mod Assist Stand to sit: Mod Assist Stand step: Min Assist Device(s) used: front wheeled walker AM-PAC AM-PAC Inpatient Daily Activity Raw Score: 14 ADL Inpatient CMS G-Code Modifier: CK Plan Pt would benefit from skilled acute OT services to address Strengthening, Balance Training, Functional Mobility Training, Endurance Training, Safety Education and Training, Patient/Caregiver Training, Equipment Evaluation/Education, Self-Care/ADL Training, and Cognitive/Perceptual Training. Frequency: 4x/week for 4 weeks Barriers: Limited safety awareness, Limited insight into deficits, Decreased endurance, and Lower extremity weakness Prognosis: good Safety/Education Safety Safety Devices in place: All fall risk precautions in place, call light within reach, left in bed, and nurse notified Restraints: N/A Education Education Given To: patient Education Provided: OT Role, Plan of Care, and Discharge Recommendations Education Method: Verbal Barriers to Learning: Education Outcome: Continued Education Needed Goals Patient Stated Goal: home Encounter Problems Encounter Problems (Active) Balance Patient will maintain static standing balance for 3 minutes with CGA in order to demonstrate decreased risk of falling. Start: 02/13/24 Expected End: 03/12/24 Dressings Lower Extremities Patient will dress lower body with min assist Start: 02/13/24 Expected End: 03/12/24 Grooming Patient will complete daily grooming tasks with set up Start: 02/13/24 Expected End: 03/12/24 Mobility Patient will demonstrate functional ambulation with CGA and LRD Start: 02/13/24 Expected End: 03/12/24 Toileting Patient will complete toileting tasks at bedside commode with CGA. Start: 02/13/24 Expected End: 03/12/24 Transfers Patient will complete functional transfer with least restrictive device with CGA in order to prepare for ambulation. Start: 02/13/24 Expected End: 03/12/24 Patient will perform bed mobility with min assist in order to improve independence and prepare for out of bed mobility. Start: 02/13/24 Expected End: 03/12/24 Therapy Time Individual Co-treatment Time In 1100 Time Out 1108 Minutes 8 Hermelinda Haney OT Patient's Occupational Therapy Plan of Care supervision is transferred to a [facility] Therapy Services Occupational Therapist. Goals and/or treatment plan was established in collaboration with patient/family/other representatives.[facility]04-10-2024 NoteMet with patient and her daughter Violetta, they would like patient to follow up with [facility] [place] referral sent.[facility]04-10-2024 Note [facility] Hematology Oncology Inpatient Consultation [facility] Lucho Gillespie : 1940(83 y.o.) Date: February 13, 2024 Attending: Dr. Chirinos Reason for consult: thrombocytopenia Consulting - Robby Rosenberg MD Primary Care Physician - Avelino Deleon Date of Admission - 02/11/2024 11:08 PM Subjective: No chief complaint on file. HPI Lucho Gillespie is a 83 y.o. woman with a history of CKD, iron deficiency anemia on iron infusions, CVA, morbid obesity, renal artery stenosis, and folate deficiency who presented from [place] due to suspected stroke, S/P TNK. We are consulted for thrombocytopenia. 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 She was referred to her PCP and has an appointment with a intensive care nurse next week for further work up. She has a long-standing history of iron deficiency anemia for which she receives iron infusions outpatient. She has not had a recent EGD or colonoscopy. Last colonoscopy was 2013, last mammogram 2014. Current Hgb is above baseline at 9.3. PLT count is 67K. We discussed checking labs and US abd to evaluate the liver/spleen and she is agreeable. 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 Never smoker. Former rare social alcohol use. No illicit drugs. No past medical history on file. No past surgical history on file. No family history on file. Social History Socioeconomic History Marital status: Spouse name: Not on file Number of children: Not on file Years of education: Not on file Highest education level: Not on file Occupational History Not on file Tobacco Use Smoking status: Not on file Smokeless tobacco: Not on file Substance and Sexual Activity Alcohol use: Not on file Drug use: Not on file Sexual activity: Not on file Other Topics Concern Not on file Social History Narrative Not on file Social Determinants of Health Financial Resource Strain: Not on file Food Insecurity: Not on file Transportation Needs: Not on file Physical Activity: Not on file Stress: Not on file Social Connections: Not on file Intimate Partner Violence: Not on file Housing Stability: Not on file Not on File Prior to Admission medications Medication Sig Start Date End Date Taking? Authorizing Provider acetaminophen (Tylenol) 650 MG suppository Insert 650 mg into the rectum every 4 hours as needed for mild pain (1-3). Historical Provider, allopurinol (Zyloprim) 100 MG tablet Take 200 mg by mouth daily. Historical Provider, aspirin 325 MG tablet Take 325 mg by mouth daily. Historical Provider, busPIRone (Buspar) 10 MG tablet Take 10 mg by mouth 2 times daily. Historical Provider, chlorthalidone (Hygroton) 25 MG tablet Take 25 mg by mouth every other day. Historical Provider, cholecalciferol (Vitamin D-3) 25 MCG (1000 UT) capsule Take 1,000 Units by mouth daily. Historical Provider, cloNIDine (Catapres) 0.1 MG tablet Take 0.1 mg by mouth 2 times daily. Historical Provider, clopidogrel (Plavix) 75 MG tablet Take 75 mg by mouth daily. Historical Provider, doxazosin (Cardura) 2 MG tablet Take 2 mg by mouth in the morning and 2 mg in the evening. Historical Provider, epoetin herbert (Epogen,Procrit) 41652 UNIT/ML injection Inject 10,000 Units under the skin every 14 (fourteen) days. Historical Provider, escitalopram (Lexapro) 20 MG tablet Take 20 mg by mouth daily. Historical Provider, ferrous sulfate 325 (65 Fe) MG EC tablet Take 325 mg by mouth daily (with breakfast). Do not crush, chew, or split. Historical Provider, folic acid (Folvite) 1 MG tablet Take 1 mg by mouth daily. Historical Provider, rosuvastatin (Crestor) 10 MG tablet Take 10 mg by mouth daily. Historical Provider, spironolactone (Aldactone) 25 MG tablet Take 25 mg by mouth daily. Historical Provider, Review of Systems Constitutional: Negative for activity change, appetite change, chills, diaphoresis, fatigue, fever and unexpected weight change. HENT: Negative for dental problem, facial swelling, mouth sores, nosebleeds, trouble swallowing and voice change. No aphasia today Eyes: Negative for photophobia and visual disturbance. Respiratory: Negative for cough, shortness of breath and wheezing. Cardiovascular: Negative for chest pain and leg swelling. Gastrointestinal: Negative for abdominal distention, abdominal pain, blood in stool, constipation, diarrhea, nausea and vomiting. Endocrine: Negative for polydipsia, polyphagia and polyuria. Genitourinary: Negative for difficulty urinating and dysuria. Musculoskeletal: Negative for arthralgias, back pain and gait problem. Skin: Negative for color change, rash and wound. Neurological: Positive for weakness. Negative for dizziness, seizures, speech difficulty and headaches. Hematological: Negative for (more content not included)...[facility]04-10-2024 Note* Care Coordination - Rufina Cervantes RN - 02/13/2024 2:51 PM EDT Spoke to patients kenneth Shipley notified her that referral was sent to [facility] and [facility] will call either her or Jose C patients son to schedule follow up. [place] [id number] Note* Care Coordination - Rufina Cervantes RN - 02/13/2024 2:51 PM EDT Spoke to patients kenneth Shipley notified her that referral was sent to [facility] and [facility] will call either her or Jose C patients son to schedule follow up. [place] [id number] Note* Care Coordination - Rufina Cervantes RN - 02/13/2024 2:06 PM EDT Met with patient and her daughter Violetta, they would like patient to follow up with [facility] in [place] referral sent. [address] [id number] Note* Care Coordination - Rufina Cervantes RN - 02/13/2024 2:06 PM EDT Met with patient and her daughter Violetta, they would like patient to follow up with [facility] [place] referral sent. Billboard [id number] NotePeripheral smear slide prepared for evaluation.[employer] Phone: [phone]) 574-973004-10-2024 NotePeripheral smear slide prepared for evaluation.[employer] Phone: [phone] 554-435904-10-2024 Consult note* Wilbert Chirinos MD - 02/13/2024 1:55 PM EDT Images from the original note were not included. [facility] Hematology Oncology Inpatient Consultation [facility] Lucho Gillespie : 1940(83 y.o.) Date: February 13, 2024 Attending: Dr. Chirinos Reason for consult: thrombocytopenia Consulting - Robby Rosenberg MD Primary Care Physician - Avelino Deleon Date of Admission - 02/11/2024 11:08 PM Subjective: No chief complaint on file. HPI Lucho Gillespie is a 83 y.o. woman with a history of CKD, iron deficiency anemia on iron infusions, CVA, morbid obesity, renal artery stenosis, and folate deficiency who presented from [facility] suspected stroke, S/P TNK. We are consulted for thrombocytopenia. 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 She was referred to her PCP and has an appointment with a intensive care nurse next week for further work up. She has a long-standing history of iron deficiency anemia for which she receives iron infusions outpatient. She has not had a recent EGD or colonoscopy. Last colonoscopy was 2013, last mammogram 2014. Current Hgb is above baseline at 9.3. PLT count is 67K. We discussed checking labs and US abd to evaluate the liver/spleen and she is agreeable. 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 Never smoker. Former rare social alcohol use. No illicit drugs. No past medical history on file. No past surgical history on file. No family history on file. Social History Socioeconomic History Marital status: Spouse name: Not on file Number of children: Not on file Years of education: Not on file Highest education level: Not on file Occupational History Not on file Tobacco Use Smoking status: Not on file Smokeless tobacco: Not on file Substance and Sexual Activity Alcohol use: Not on file Drug use: Not on file Sexual activity: Not on file Other Topics Concern Not on file Social History Narrative Not on file Social Determinants of Health Financial Resource Strain: Not on file Food Insecurity: Not on file Transportation Needs: Not on file Physical Activity: Not on file Stress: Not on file Social Connections: Not on file Intimate Partner Violence: Not on file Housing Stability: Not on file Not on File Prior to Admission medications Medication Sig Start Date End Date Taking? Authorizing Provider acetaminophen (Tylenol) 650 MG suppository Insert 650 mg into the rectum every 4 hours as needed for mild pain (1-3). Historical Provider, allopurinol (Zyloprim) 100 MG tablet Take 200 mg by mouth daily. Historical Provider, aspirin 325 MG tablet Take 325 mg by mouth daily. Historical Provider, busPIRone (Buspar) 10 MG tablet Take 10 mg by mouth 2 times daily. Historical Provider, chlorthalidone (Hygroton) 25 MG tablet Take 25 mg by mouth every other day. Historical Provider, cholecalciferol (Vitamin D-3) 25 MCG (1000 UT) capsule Take 1,000 Units by mouth daily. Historical Provider, cloNIDine (Catapres) 0.1 MG tablet Take 0.1 mg by mouth 2 times daily. Historical Provider, clopidogrel (Plavix) 75 MG tablet Take 75 mg by mouth daily. Historical Provider, doxazosin (Cardura) 2 MG tablet Take 2 mg by mouth in the morning and 2 mg in the evening. Historical Provider, epoetin herbert (Epogen,Procrit) 10752 UNIT/ML injection Inject 10,000 Units under the skin every 14 (fourteen) days. Historical Provider, escitalopram (Lexapro) 20 MG tablet Take 20 mg by mouth daily. Historical Provider, ferrous sulfate 325 (65 Fe) MG EC tablet Take 325 mg by mouth daily (with breakfast). Do not crush,chew, or split. Historical Provider, folic acid (Folvite) 1 MG tablet Take 1 mg by mouth daily. Historical Provider, rosuvastatin (Crestor) 10 MG tablet Take 10 mg by mouth daily. Historical Provider, spironolactone (Aldactone) 25 MG tablet Take 25 mg by mouth daily. Historical Provider, Review of Systems Constitutional: Negative for activity change, appetite change, chills, diaphoresis, fatigue, fever and unexpected weight change. HENT: Negative for dental problem, facial swelling, mouth sores, nosebleeds, trouble swallowing andvoice change. No aphasia today Eyes: Negative for photophobia and visual disturbance. Respiratory: Negative for cough, shortness of breath and wheezing. Cardiovascular: Negative for chest pain and leg swelling. Gastrointestinal: Negative for abdominal distention, abdominal pain, blood in stool, constipation, diarrhea, nausea and vomiting. Endocrine: Negative for polydipsia, polyphagia and polyuria. Genitourinary: Negative for difficulty urinating and dysuria. Musculoskeletal: Negative for arthralgias, back pain and gait problem. Skin: Negative for color change, rash and wound. Neurological: Positive for weakness. Negative for dizziness, seizures, speech difficulty and headaches. Hematological: Negative for adenopathy. Bruises/bleeds easily (reports due to asa/plavix). Psychiatric/Behavioral: Negative for agitation and confusion. Objective: ECOG PS: 2 Vitals: 02/13/24 1000 02/13/24 1100 02/13/24 1200 02/13/24 1300 BP: (!) 170/58 (!) 172/54 (!) 181/62 (!) 196/116 BP Location: Left arm Patient Position: Sitting Pulse: 66 70 70 78 Resp: 17 14 20 23 Temp: TempSrc: Temporal SpO2: 98% 94% 97% 94% Wt Readings from Last 3 Encounters: No data found for Wt Physical Exam Constitutional: Appearance: Normal appearance. She is obese. She is not toxic-appearing or diaphoretic. HENT: Head: Normocephalic and atraumatic. Right Ear: External ear normal. There is no impacted cerumen. Left Ear: External ear normal. There is no impacted cerumen. Nose: Nose normal. No rhinorrhea. Mouth/Throat: Mouth: Mucous membranes are moist. Pharynx: No oropharyngeal exudate or posterior oropharyngeal erythema. Eyes: General: Right eye: No discharge. Left eye: No discharge. Conjunctiva/sclera: Conjunctivae normal. Pupils: Pupils are equal, round, and reactive to light. Cardiovascular: Rate and Rhythm: Normal rate and regular rhythm. Pulses: Normal pulses. Heart sounds: Normal heart sounds. No friction rub. No gallop. Pulmonary: Effort: Pulmonary effort is normal. No respiratory distress. Breath sounds: Normal breath sounds. No wheezing, rhonchi or rales. Chest: Chest wall: No tenderness. Abdominal: General: Bowel sounds are normal. There is no distension. Palpations: Abdomen is soft. There is no mass. Tenderness: There is no abdominal tenderness. There is no guarding. Musculoskeletal: General: No swelling, tenderness or signs of injury. Cervical back: Normal range of motion and neck supple. No rigidity. Right lower leg: Edema present. Left lower leg: Edema present. Lymphadenopathy: Cervical: No cervical adenopathy. Skin: General: Skin is warm and dry. Capillary Refill: Capillary refill takes less than 2 seconds. Coloration: Skin is not jaundiced or pale. Findings: Bruising (left hand) present. No erythema or rash. Neurological: General: No focal deficit present. Mental Status: She is alert and oriented to person, place, and time. Psychiatric: Mood and Affect: Mood normal. INTAKE/OUTPUT: Intake/Output Summary (Last 24 hours) at 02/13/2024 1355 Last data filed at 02/13/2024 1230 Gross per 24 hour Intake 2577 ml Output 800 ml Net 1777 ml Labs Lab Results Component Value Date NA 139 02/13/2024 K 4.5 02/13/2024 CL 111 (H) 02/13/2024 CO2 21 (L) 02/13/2024 BUN 50 (H) 02/13/2024 CREATININE 1.75 (H) 02/13/2024 GLUCOSE 131 (H) 02/13/2024 CALCIUM 8.4 02/13/2024 PROT 6.2 (L) 02/13/2024 BILITOT 0.7 02/13/2024 ALKPHOS 59 02/13/2024 AST 30 02/13/2024 ALT 17 02/13/2024 Lab Results Component Value Date WBC 6.5 02/13/2024 HGB 9.3 (L) 02/13/2024 HCT 29.4 (L) 02/13/2024 MCV 94.2 02/13/2024 PLT 67 (L) 02/13/2024 Imaging ECG 12 lead Result Date: 02/13/2024 Sinus rhythm Atrial premature complex LVH by voltage Nonspecific T abnormalities, lateral leads Electronically Signed On 02-13-2024 10:34:21 EDT by Sixto Limon MR brain wo contrast Result Date: 02/12/2024 Patient Name: [facility]PIE [facility] 1940 [id number] Exam Date/Time: 02/12/2024 16:28 Procedure: MR BRAIN WO CONTRAST Ordering Provider: ROSENBERG MICHAEL Reason For Exam: Stroke, follow up MRI BRAIN WITHOUT CONTRAST INDICATIONS: Stroke, follow up COMPARISON: None TECHNIQUE: Multiplanar, multisequence MRI of the brain was performed without contrast. FINDINGS: Acute Change: No evidence of acute infarction. No fluid collection or intracranial hemorrhage. Mass Lesion: None. Parenchyma: Encephalomalacia and gliosis in the left occipital lobe froma remote CHIEF JAILER territory infarct. Small remote lacunar infarcts in the cerebellar white matter bilaterally and left frontal subcortical white matter. Ventricles and sulci: Moderate generalized brain parenchymal volume loss with mild proportionate ventricular enlargement. Superimposed ex vacuo enlargement of the atrium of the left lateral ventricle. Skull base: Normal appearance of the pituitary gland. Normal position of the cerebellar tonsils. Vessels: The major intracranial flow voids are preserved. Extracranial structures: Bilateral lens replacements; otherwise, the orbits are unremarkable. No extracranial soft tissue abnormalities. Sinuses/mastoids: Clear Bones: No pathologic marrow infiltration. 1. No acute intracranial abnormalities. 2. Remote left CHIEF JAILER territory infarct and small remote lacunar infarcts in the cerebellum and left frontal lobe. Report Dictated on Electronically Signed By: River Irizarry MD Electronically Signed Date/Time: 02/12/2024 6:46 PM EDT Vascular US upper extremity venous duplex left Result Date: 02/12/2024 No evidence of deep vein or superficial vein thrombosis in the left upper extremity. Vessels demonstrate normal compressibility, color filling, and phasic and spontaneous flow. Contralateral imaging of the right subclavian vein was normal. Transthoracic echocardiogram (TTE) complete with contrast, bubble, strain, and 3D PRN Result Date: 02/12/2024 Left Ventricle: Left ventricle size is normal. Mildly increased wall thickness. Moderate septal thickening. Normal left ventricular systolic function. EF by 2D Simpsons Biplane is 77%. Normal wall motion. No thrombus or other source of embolic event is identified. Interatrial Septum: No interatrialshunt visualized on color Doppler. Right Ventricle: Right ventricle is mildly dilated. Normal systolic function. Aortic Valve: Trileaflet. No cusp thickening. Mildly calcified cusps. Mild annular calcification. Trace regurgitation. No stenosis. Left Atrium: Left atrium is mildly dilated. Aorta: Normal sized sinuses of Valsalva. Mildly dilated ascending aorta. Ao ascending diameter is 3.5 cm. XR abdomen 1 view Result Date: 02/12/2024 Patient Name: LUCHO GILLESPIE : 1940 Exam Date/Time: 02/12/2024 11:00 Procedure: XR ABDOMEN 1 VIEW Ordering Provider: ROSENBERG MICHAEL Reason For Exam: MRI clearance ABDOMEN: CLINICAL INDICATION: MRI clearance. TECHNIQUE: Supine APview of abdomen and pelvis. COMPARISON: None. FINDINGS: Eventration of right hemidiaphragm. The bowel gas pattern is unremarkable. There are scattered calculi in the distribution of the right and left kidney. Splenic artery and/or spleen calcifications are seen.. There is no organomegaly. Lumbar degenerative spondylosis. Urinary bladder is opacified with contrast. No radiopaque foreign body. No acute abdominal process. No radiopaque foreign body. Suspect tiny bilateral renal calculi ReportDictated on Electronically Signed By: Rico Hines DO ElectronicallySigned Date/Time: 02/12/2024 11:22 AM EDT XR chest 1 view Result Date: 02/12/2024 Patient Name: LUCHO GILLESPIE : 1940 Exam Date/Time: 02/12/2024 11:00 Procedure: XR CHEST 1 VIEW Ordering Provider: ROSENBERG MICHAEL Reason For Exam: MRI clearance PORTABLE CHEST CLINICAL INDICATION: MRI clearance. COMPARISON: None. TECHNIQUE: A single frontal view of thorax was obtained and reviewed. 1. Lines/ tubes/ devices: None. 2. Lungs and Pleura: No infiltrate or mass. No pneumothorax or pleural effusion. 3. Heart and mediastinum: Mild cardiomegaly. 4. Bones: Thoracic degenerative spondylosis. No radiopaque foreign body. Report Dictated on Electronically Signed By: Rico Hines DO Electronically Signed Date/Time: 02/12/2024 11:19 AM EDT ECG 12 lead if not done in the ED Sinus rhythm Short MN interval LVH with secondary repolarization abnormality Borderline prolonged QT interval no stemi no prior to compare Electronically Signed On 02-12-2024 11:14:10 EDT by Robby Figueredo CT head wo IV contrast Result Date: 02/11/2024 Patient Name: LUCHO [facility]ILLESPIE : 1940 [id number] Exam Date/Time: 02/11/2024 23:39 Procedure: CT HEAD WO IV CONTRAST Ordering Provider: SYED MADIHAH Reason For Exam: Neuro deficit, acute, stroke suspected CT HEAD: Clinical Indication: 83-year-old female; stroke protocol; left pupil is blown; patient has received TPA at another facility acouple hours ago Imaging Technique: Multiple axial 3mm CT images of the head were obtained from theskull base to the vertex. Coronal and sagittal reconstructs were rendered. Dose reduction was employed with automated exposure control. Comparison: CT head 02/11/2024 at 15:19 (outside facility) (report not available) Time: 23:25 on 02/11/2024 FINDINGS: There is no intracranial hemorrhage. There is mild global volume loss with mild spinal vessel ischemia. There is a remote old left occipital lobe infarct with encephalomalacia changes in commensurate dilatation of the adjacent lateral ventricle occipital horn. Vascular atherosclerotic calcifications are present. The sinuses are pneumatized. The globes appear symmetric. Prior lens surgery noted. The mastoid air cells are pneumatized. There is no significant change when compared to imaging performed approximately 7 hours earlier. Noacute intracranial hemorrhage. Old LEFT occipital lobe infarct. CRITICAL TEST COMMUNICATION: Dr. Syed was notified by telephone today at 11:36pm. ASPECTS: 10 Report Dictated on Electronically Signed By: Suzie Henriquez MD Electronically Signed Date/Time: 02/11/2024 11:40PM EDT Assessment and Plan: Thrombocytopenia. Check B12/folate, ferritin, peripheral smear, hepatitis studies, and US abdomen to evaluate spleen/liver. Recommend follow up with hematology closer to her home (she has an appt scheduled). Stroke recrudescence in the setting of HTN emergency. Iron deficiency anemia. Check ferritin. D/w Dr. Chirinos. The patient was given the opportunity to ask questions and all questions were answered to the best of my ability. The patient agrees with the above noted plan. Thank you for allowing us to participate in this patient's care. Please call with any questions. I have spent 17 minutes preparing to see the patient, reviewing previous notes and test results, completing clinical documentation as well as with [id number] patient care, performing a medically appropriate examination, counseling / educating the patient/family/caregiver, and ordering medications, tests, or procedures. Electronically signed by CARYN Madison CNP I have personally performed a face to face diagnostic evaluation on this patient on 02/13/24. I havereviewed and agree with the care plan. My assessment/plan are as follows: Patient is well-appearing. Unlikely to be thrombotic microangiopathy. She had thrombocytopenia 1 month ago as an outpatient. She has an appointment with hematology set up closer to home. Perform initial workup while in the hospital to evaluate reversible causes. Tests have been orderedthat include hepatitis B hepatitis C, B12, folate. I will follow-up results Patient verbalizes understanding and agrees with the plan I spent total time 55 minutes reviewing previous notes, test results, and face to face with the patient discussing the diagnosis and importance of compliance with the treatment plan as well as documenting on the day of the visit. [place] Phone: [phone] 294-485704-10-2024 NotePHYSICAL THERAPY [facility] Initial Evaluation Name/MRN: Lucho Gillespie ([id number]) Evaluation Date: 02/13/2024 Date of : 1940 Admission Date: 02/11/2024 11:08 PM Age: 83 y.o. Room/Bed: T2-213/T2-213 A Discharge Recommendation: Care Home Facility Equipment Needed: No Assessment IMPRESSION: 83 y.o. pt admitted to [facility] for ischemic stroke s/p TNK. They were Mod A for bed mobility, Mod A for transfers, and CGA - Min A for ambulation. She if from [place], will probably need more assist at discharge. Would recommend SNF at discharge. Diagnosis: ischemic stroke s/p TNK Prognosis: fair Performance Deficits /Impairments: Decreased Functional Mobility, Decreased Strength, Decreased Safety Awareness, Decreased Endurance, and Decreased Balance Decision Making: Medium Complexity Subjective Pt supine in bed. Agreeable to PT session. Cleared by nursing Pain: Pt denies any current pain. Past Medical History: No past medical history on file. Past Surgical History: No past surgical history on file. Admission Diagnosis: Patient Active Problem List Diagnosis Date Noted Ischemic stroke (HCC) 02/11/2024 Medical Precautions: No active isolations Proper PPE donned/doffed in accordance with facility standards. Fall Risk: Stephen Fall Risk Score: 60 (High Risk) Precautions/Restrictions: Lines/Drains/Airways: PIV, tele Family/Caregiver Present: child(katelyn) Overall Cognitive Status: Exceptions - Following commands: follows one step commands with increased time and follows one step commands with repetition - Safety judgement: decreased awareness of need for assistance and decreased awareness of need for safety - Insights: decreased awareness of deficits Overall Orientation Status: Oriented to Person (+hospital) Vision: R sided partial visual cut from previous stroke, pt denies increased difficulty with sight Hearing: normal Social/Functional History Patient admitted from [facility]. Assistive Equipment: rollator Prior Level of Function ADL Assistance: Needs Assist Ambulation Assistance: Independent Transfer Assistance: Independent Objective Lower Extremity Assessment AROM: WFL PROM: WFL Strength: WFL (grossly 3+/5 overall) Bed Mobility: Supine to sit: Mod Assist HOB elevated, BLE and trunk assist. Assist scooting to EOB prior to stand Transfers Sit to stand: Mod Assist Stand to sit: Mod Assist EOB x1, commode x1 both at FWW, cues for hand placement Ambulation Ambulation 1 Assistive device(s) used: front wheeled walker Assist level: Contact Guard, Min Assist Distance (ft): 10' + 10' Quality of gait: antalgic, shuffling, wide ASHLY, slow sultana Sensation: WFL Outcome Measures AM-PAC How much HELP from another person do you currently need Turning from your back to your side while in a flat bed without using bedrails?: None Moving from lying on your back to sitting on the side of a flat bed without using bedrails?: A Little Moving to and from a bed to a chair (including a wheelchair)?: A Little Standing up from a chair using your arms (wheelchair or bedside chair)?: A Lot Walking in a hospital room?: A Little Stair climbing assessed?: No AM-PAC Inpatient Mobility Raw Score (No Stairs) : 15 [facility] Score: Walked 10 steps or more (i.e. walked to restroom) Plan Pt would benefit from skilled acute PT services to address Strengthening, Balance Training, Functional Mobility Training, Endurance Training, Gait Training, Stair Training, Safety Education and Training, Patient/Caregiver Training, and Equipment Evaluation/Education. Frequency: 5x/week for 4 weeks Barriers: Upper extremity weakness and Lower extremity weakness Safety/Education Safety Safety Devices in place: call light within reach, left in chair, chair alarm in place, gait belt, and nurse notified Restraints: No Education Education Given To: patient Education Provided: PT Role, PT Goals, Plan of Care, Transfer Training, Equipment, Fall Prevention Education, and Benefits of Increasing Activity Education Method: Verbal Barriers to Learning: Cognition Education Outcome: Continued Education Needed Goals Patient Stated Goal: to go home Encounter Problems Encounter Problems (Active) Balance Patient will maintain dynamic standing balance for 8 minutes with supervision in order to demonstrate decreased risk of falling. Start: 02/13/24 Expected End: 03/12/24 Mobility Patient will ambulate 50 feet with supervision and least restrictive device in order to improve safety and independence with mobility. Start: 02/13/24 Expected End: 03/12/24 Transfers Patient will perform bed mobility with modified independence in order to improve independence and prepare for out of bed mobility. Start: 02/13/24 Expected End: 03/12/24 Patient will complete functional transfer with least restrictive device with supervision in order to prepare for ambulation. Start: 02/12 (more content not included)...[facility] [id number] Nurse Note* Markie Fontaine RN - 02/13/2024 10:[address] Syed talking with patient and family. [facility] [id number] [facility] EPILEPSY C[facility] & EEG LABORATORY [address] [place] [address] ROUTINE EEG REPORT Patient Name: Lucho Gillespie : 1940 Date of Study: 02/13/24 Duration Recorded: 22 minutes EEG#: [id number] HEATING EQUIPMENT INSTALLER: Rufina Beltran PROVIDER REQUESTING STUDY: Charlie Syed MD REASON FOR EXAM: Evaluate for seizures DIAGNOSIS TAG: Stroke Remote (RS) HISTORY: Lucho Gillespie is a 83 y.o. female patient with hypertension, renal artery stenosis, CKD and previous ischemic stroke-[facility] of sudden onset of right hemiparesis and aphasia. Received the initial phone call from OSH ER physician-patient had been given IV tenecteplase within the window at [place] ED. patient was markedly hypertensive with a systolic blood pressure in the 200s requiring Cardene infusion before she was able to safely receive the IV tenecteplase dose. CTA head and neck and noncontrast CT head revealed no acute LVO. Initial NIHSS of 14-patient was transported by ground ED to ED for stroke team evaluation. NIHSS improved to 8-patient with right arm drift, expressive and receptive aphasia, and a visual field deficit. On further evaluation patient was noted to have left eye ptosis as well as a large left pupil that was 4 mm and nonreactive to light, compared to the right pupil which was 2 mm and briskly reactive to light. Although this would be concerning for intracranial compression, patient's mental status was alert and interactive and neurological exam is actually improved. She was aphasic and unable to tell us if this was a previous finding due to for example and eye surgery. Therefore we obtained a stat CT head to ensure there was no hemorrhagic transformation after tenecteplase. Stat CT head revealed evidence of an old ischemic stroke with encephalomalacia in the left parietal occipital cortex. But there was no acute intracranial hemorrhage. Patient was taken to T2 ICU for continued post tenecteplase care-please see stroke order set. MEDICATIONS: Current Facility-Administered Medications Medication Dose Route Frequency Provider Last Rate Last Admin acetaminophen (Tylenol) tablet 650 mg 650 mg Oral q6h PRN Jose C Kiza, DO Or acetaminophen (Tylenol) suppository 650 mg 650 mg Rectal q6h PRN Jose C Kiza, DO amLODIPine (Norvasc) tablet 5 mg 5 mg Oral Daily Rosario Pratt, DO 5 mg at 02/12/24 185 aspirin EC tablet 81 mg 81 mg Oral Daily Charlie Syed MD 81 mg at 02/12/241857 atorvastatin (Lipitor) tablet 40 mg 40 mg Oral Nightly Jose C Kiza, DO bisacodyl (Dulcolax) suppository 10 mg 10 mg Rectal Daily PRN Jose C Kiza, DO busPIRone (Buspar) tablet 10 mg 10 mg Oral BID Charlie Syed MD 10 mg at 02/12/242009 cloNIDine (Catapres) tablet 0.1 mg 0.1 mg Oral BID Charlie Syed MD 0.1 mg at 02/13/24601 hydrALAZINE (Apresoline) injection 10 mg 10 mg IntraVENous q4h PRN Charlie Syed MD 10 mg at 02/12/24 1806 labetalol (Normodyne,Trandate) injection 10 mg 10 mg IntraVENous q1h PRN Charlie Syed MD 10 mg at 02/12/24 1725 ondansetron ODT (Zofran-ODT) disintegrating tablet 4 mg 4 mg Oral q8h PRN Jose C Kiza, DO Or ondansetron (Zofran) injection 4 mg 4 mg IntraVENous q6h PRN Jose C Kiza, DO polyethylene glycol (PEG) 3350 (Miralax) packet 17 g 17 g Oral Daily PRN Jose C Kiza, DO sodium chloride 0.9 % infusion 5-250 mL/hr IntraVENous PRN Jose C Kiza, DO sodium chloride 0.9 % infusion 50 mL/hr IntraVENous Continuous Charlie Syed MD 50 mL/hr at 02/12/24 1622 50 mL/hr at 02/12/24 1622 sodium chloride 0.9% (NS) flush 5-40 mL 5-40 mL IntraVENous q12h Jose C Kiza, DO 10 mL at 02/12/24 2333 sodium chloride 0.9% (NS) flush 5-40 mL 5-40 mL IntraVENous PRN Jose C Kiza, DO spironolactone (Aldactone) tablet 25 mg 25 mg Oral Daily Rosario Pratt DO 25 mg at 02/12/242009 TECHNICAL ASPECTS: This routine scalp EEG study with video was carried out at [facility]. Scalp electrodes were positioned in person by an computer technologist, following patient education, according to the 10-20 International system of electrode placement and maintained for integrity and quality of the recording. EEG data was recorded continuously and digitally stored. The computer technologist reviewed all automated detections and manual events and prepared the data for archiving and provider review. Referential and bipolar montages were used for review. TECHNOLOGIST NOTES: No skull or scalp defects were observed. BACKGROUND ACTIVITY: Posterior background activity: A continuous organized and well-modulated 8.5-9.5 Hz, 20-40 uV rhythm was seen over the posterior head regions bilaterally with a right sided predominance. Beta range: Fronto-centrally predominant beta range activity (15-25 Hz, 10-20 uV) was seen. Sleep: Stage N2 sleep was reached as evidenced by the appearance of vertex waves and sleep spindles seen symmetrically over the central hea (more content not included)...[facility] [id number] NotePROGRESS NOTE. STROKE SERVICE Patient Name:Lucho Gillespie Patient : 1940 Acct: [id number] Date of Admission: 02/11/2024 Room/Bed: T2213/T2213 A PCP: Avelino Deleon Patient location ICU Remains in the hospital due to persistent unresolved acute issues, Chief complaint: aphasia/R hemiparesis New Complain: No documented events overnight. SBP have been 140-180's. Afebrile. MRI completed yesterday. Nursing documenting NIH of 4. Upon seeing her this morning, she states that she is feeling good. Denies any new complaints. She was moving all extremities equally. She does have a R lower quadrant visual field cut and L pupil is 6mm and un reactive which she states is normal. Sedation:No Diet/TF:regular Camacho: No VTE prophylaxis: YES SCDs Antithrombotic therapy in first 24 hrs: YES aspirin n Statin therapy for stroke stroke patients: High intensity Anticoagulation on AF patients: N/A no history of AF Activity: PT/OT Disposition: TBD Current Hospital Medications: Current Facility-Administered Medications: acetaminophen (Tylenol) tablet 650 mg, 650 mg, Oral, q6h PRN OR acetaminophen (Tylenol) suppository 650 mg, 650 mg, Rectal, q6h PRN, Jose Cmarcelina Arceza, DO amLODIPine (Norvasc) tablet 5 mg, 5 mg, Oral, Daily, Rosario Pratt DO, 5 mg at 02/12/241857 aspirin EC tablet 81 mg, 81 mg, Oral, Daily, Charlie Syed MD, 81 mg at 02/12/241857 atorvastatin (Lipitor) tablet 40 mg, 40 mg, Oral, Nightly, Jose C Rueda DO bisacodyl (Dulcolax) suppository 10 mg, 10 mg, Rectal, Daily PRN, Jose C Rueda DO busPIRone (Buspar) tablet 10 mg, 10 mg, Oral, BID, Charlie Syed MD, 10 mg at 02/12/242009 cloNIDine (Catapres) tablet 0.1 mg, 0.1 mg, Oral, BID, Charlie Syed MD, 0.1 mg at 02/13/24601 hydrALAZINE (Apresoline) injection 10 mg, 10 mg, IntraVENous, q4h PRN, Charlie Syed MD, 10 mg at 02/12/24 1806 labetalol (Normodyne,Trandate) injection 10 mg, 10 mg, IntraVENous, q1h PRN, Charlie Syed MD, 10 mg at 02/12/24 1725 ondansetron ODT (Zofran-ODT) disintegrating tablet 4 mg, 4 mg, Oral, q8h PRN OR ondansetron (Zofran) injection 4 mg, 4 mg, IntraVENous, q6h PRN, Jose C Rueda DO polyethylene glycol (PEG) 3350 (Miralax) packet 17 g, 17 g, Oral, Daily PRN, Jose C Kiza, DO sodium chloride 0.9 % infusion, 5-250 mL/hr, IntraVENous, PRN, Jose C Claudeza, DO sodium chloride 0.9 % infusion, 50 mL/hr, IntraVENous, Continuous, Charlie Syed MD, Last Rate: 50 mL/hr at 02/12/24 1622, 50 mL/hr at 02/12/24 1622 sodium chloride 0.9% (NS) flush 5-40 mL, 5-40 mL, IntraVENous, q12h, Jose C Arceza, DO, 10 mL at 02/12/24 2333 sodium chloride 0.9% (NS) flush 5-40 mL, 5-40 mL, IntraVENous, PRN, Jose C Kiza, DO spironolactone (Aldactone) tablet 25 mg, 25 mg, Oral, Daily, Rosario Allen Pratt, DO, 25 mg at 02/12/242009 Continuous Infusions: sodium chloride, 50 mL/hr, Last Rate: 50 mL/hr (02/12/24 162) Allergies: Patient has no allergy information on record. Review of Systems Unable to perform ROS: Acuity of condition Objective: Telemetry: Arrhythmia:No Physical Examination: Patient Vitals for the past 8 hrs: BP Temp Temp src Pulse Resp SpO2 02/13/24 0700 (!) 184/36 -- -- 66 25 99 % 02/13/24 0600 (!) 188/58 -- -- 72 (!) 32 97 % 02/13/24 0500 (!) 164/5 -- -- 71 (!) 26 96 % 02/13/24 0400 160/51 36.5 ?C (97.7 ?F) Temporal 86 13 98 % 02/13/24 0300 (!) 146/46 -- -- 68 (!) 27 98 % 02/13/24 0230 (!) 159/47 -- -- 74 (!) 29 97 % 02/13/24 0200 (!) 153/49 -- -- 76 24 97 % 02/13/24 0100 (!) 146/42 -- -- 77 19 98 % I/O last 3 completed shifts: In: 3378.8 [P.O.:1400; I.V.:1978.8] Out: 1500 [Urine:1500] General Physical Examination: General:morbidly obese elderly female HEENT:Normocephalic, atraumaticl L eye ptosis CV: S1+S2, RRR, no MRG. Pulm:CTA b/l, unlabored Abdomen: Soft NT/ND. BS + Skin: petechial hemorrhages on bilateral arms into palms of hands Extremities: bilateral lower leg edema Orthopedic limitation; N/A Pulses: Intact peripherally Carotid auscultation :No bruits Neurological Examination: Higher Functions: Mental Status Exam: Level of Alertness:Awake Orientation: Normal toself, time, place Memory: Abnormal Fund of Knowledge: Normal Language: Normal Dysarthria not present Cranial Nerves: -II Visual acuity: abnormal, limited due to patient unable to perform exam -II Visualfields: partial hemianopia R lower visual field of each eye -III Pupils (~ 3 mm OD, 6 mm OU) reactive R pupil, non reactive L pupil -III-IV- Extraocular Movements: intact -Nystagmus not present -Saccades and pursuits normal -V Facial sensation: intact Corneal's Intact bilateral -VII Facial strength:intact -VIII Hearing: intact -IX-X - Gag reflex present -X Palate: intact -XI Shoulder shrug: intact -XII Tongue movement: not participant MotorExamination: Tone after evaluation of 4 limbs, the following findings applied: Normal -Bulk: n (more content not included)...[facility]04-10-2024 Procedure note * Kris Shahid MD - 02/13/2024 8:09 AM EDTAssociated Order(s): EEG Procedure(s): EEG Images from the original note were not included. [facility] EPILEPSY CENTER & EEG LABORATORY [address] [place] [id number] ROUTINE EEG REPORT Patient Name: Lucho Gillespie : 1940 Date of Study: 02/13/24 Duration Recorded: 22 minutes EEG#: [id number] HEATING EQUIPMENT INSTALLER: Rufina Beltran PROVIDER REQUESTING STUDY: Charlie Syed MD REASON FOR EXAM: Evaluate for seizures DIAGNOSIS TAG: Stroke Remote (RS) HISTORY: Lucho Gillespie is a 83 y.o. female patient with hypertension, renal artery stenosis, CKD and previous ischemic stroke-[facility] of sudden onset of right hemiparesis and aphasia. Received the initial phone call from [facility] ER physician-patient had been given IV tenecteplase within the window at [place] ED. patient was markedly hypertensive with a syst olic blood pressure in the 200s requiring Cardene infusion before she was able to safely receive the IV tenecteplase dose. CTA head and neck and noncontrast CT head revealed no acute LVO. Initial NIHSS of 14-patient was transported by ground ED to ED for stroke team evaluation. NIHSS improved to 8-patient with right arm drift, expressive and receptive aphasia, and a visual field deficit. On further evaluation patient was noted to have left eye ptosis as well as a large left pupil that was 4 mm and nonreactive to light, compared to the right pupil which was 2 mm and briskly reactive to light. Although this would be concerning for intracranial compression, patient's mental status was alert and interactive and neurological exam is actually improved. She was aphasic and unable to tell us if this was a previous finding due to for example and eye surgery. Therefore we obtained a stat CT head to ensure there was no hemorrhagic transformation after tenecteplase. Stat CT head revealed evidenceof an old ischemic stroke with encephalomalacia in the left parietal occipital cortex. But there was no acute intracranial hemorrhage. Patient was taken to T2 ICU for continued post tenecteplase care-please see stroke order set. MEDICATIONS: Current Facility-Administered Medications Medication Dose Route Frequency Provider Last Rate Last Admin acetaminophen (Tylenol) tablet 650 mg 650 mg Oral q6h PRN Jose C Kiza, DO Or acetaminophen (Tylenol) suppository 650 mg 650 mg Rectal q6h PRN Jose C Kiza, DO amLODIPine (Norvasc) tablet 5 mg 5 mg Oral Daily Rosario Pratt, DO 5 mg at 02/12/241857 aspirin EC tablet 81 mg 81 mg Oral Daily Charlie Syed MD 81 mg at 02/12/241857 atorvastatin (Lipitor) tablet 40 mg 40 mg Oral Nightly Jose C Kiza, DO bisacodyl (Dulcolax) suppository 10 mg 10 mg Rectal Daily PRN Jose C Claudeza, DO busPIRone (Buspar) tablet 10 mg 10 mg Oral BID Charlie Syed MD 10 mg at 02/12/242009 cloNIDine (Catapres) tablet 0.1 mg 0.1 mg Oral BID Charlie Syed MD 0.1 mg at 02/13/24601 hydrALAZINE (Apresoline) injection 10 mg 10 mg IntraVENous q4h PRN Charlie Syed MD 10 mg at 02/12/24 1806 labetalol (Normodyne,Trandate) injection 10 mg 10 mg IntraVENous q1h PRN Charlie Syed MD 10 mg at 02/12/24 1725 ondansetron ODT (Zofran-ODT) disintegrating tablet 4 mg 4 mg Oral q8h PRN Jose C Kiza, DO Or ondansetron (Zofran) injection 4 mg 4 mg IntraVENous q6h PRN Jose C Kiza, DO polyethylene glycol (PEG) 3350 (Miralax) packet 17 g 17 g Oral Daily PRN Jose C Kiza, DO sodium chloride 0.9 % infusion 5-250 mL/hr IntraVENous PRN Jose C Kiza, DO sodium chloride 0.9 % infusion 50 mL/hr IntraVENous Continuous Charlie Syed MD 50 mL/hr at 02/12/24 1622 50 mL/hr at 02/12/24 1622 sodium chloride 0.9% (NS) flush 5-40 mL 5-40 mL IntraVENous q12h Jose C Kiza, DO 10 mL at 02/12/24 2333 sodium chloride 0.9% (NS) flush 5-40 mL 5-40 mL IntraVENous PRN Jose C Kiza, DO spironolactone (Aldactone) tablet 25 mg 25 mg Oral Daily Rosario Pratt, DO 25 mg at 02/12/242009 TECHNICAL ASPECTS: This routine scalp EEG study with video was carried out at [facility]. Scalp electrodes were positioned in person by an computer technologist, following patient education, according to the 10-20 International system of electrode placement and maintained for integrity and quality of the recording. EEG data was recorded continuously and digitally stored. The computer technologist reviewed all automated detections and manual events and prepared the data for archiving and provider review. Referential and bipolar montages were used for review. TECHNOLOGIST NOTES: No skull or scalp defects were observed. BACKGROUND ACTIVITY: Posterior background activity: A continuous organized and well-modulated 8.5-9.5 Hz, 20-40 uV rhythm was seen over the posterior head regions bilaterally with a right sided predominance. Beta range: Fronto-centrally predominant beta range activity (15-25 Hz, 10-20 uV) was seen. Sleep: Stage N2 sleep was reached as evidenced by the appearance of vertex waves and sleep spindlesseen symmetrically over the central head regions bilaterally. Normal Variants: No normal variants were identified. Voltage asymmetry was observed with decreased amplitudes over the left posterior quadrant (Y9-V1-W7-P7-O1, voltage difference greater than 50 %). 07:56:09 -PDR + asymmetry, decreased amplitudes, left hemisphere (AP Bipolar) SLOWING: No abnormal slowing was seen. INTERICTAL EPILEPTIFORM ACTIVITY: No epileptiform activity was seen. ICTAL ACTIVITY: No ictal activity was seen. NON-EPILEPTIC EVENTS: None. ACTIVATION PROCEDURES: Photic stimulation was not performed. Hyperventilation was not performed. IMPRESSION AND ACTIONS TAKEN: This routine EEG with video is abnormal. Voltage asymmetry is observed with decreased amplitudes over the LEFT posterior quadrant. No interictal epileptiform activity nor seizures are observed. Sleep architecture is seen. Normal background rhythms are observed over the right hemisphere. 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 Maurice Morgan, PhD Clinical Neurophysiologist Kris Shahid MD, PHD Epilepsy Attending [employer] Work Phone: [phone] 606-147204-10-2024 Note* Care Coordination - Cherise Fonseca RN - 02/13/2024 7:59 AM EDT [facility] requested PT/OT/PELLETISING EXTRUDER OPERATOR for PT/OT to see today. [employer] [id number] Note* Care Coordination - Cherise Fonseca RN - 02/13/2024 7:59 AM EDT [facility] requested PT/OT/PELLETISING EXTRUDER OPERATOR for PT/OT to see today. [facility] [id number] NoteNeurocritical Care/Stroke Service PROGRESS NOTE: Patient Name:Lucho Gillespie Patient : 1940 Acct: [id number] Date of Admission: 02/11/2024 Room/Bed: T2213/[place] [facility] A PCP: Avelino Deleon Patient location ICU Interval History Aphasia improved overnight, able to be weaned off of Cardene this morning after reinitiation of her clonidine. Current Hospital Medications: Current Facility-Administered Medications: acetaminophen (Tylenol) tablet 650 mg, 650 mg, Oral, q6h PRN OR acetaminophen (Tylenol) suppository 650 mg, 650 mg, Rectal, q6h PRN, Jose C Rueda DO amLODIPine (Norvasc) tablet 5 mg, 5 mg, Oral, Daily, Rosario Pratt DO aspirin EC tablet 81 mg, 81 mg, Oral, Daily, Charlie Syed MD [START ON 02/13/2024] atorvastatin (Lipitor) tablet 40 mg, 40 mg, Oral, Nightly, Jose C Rueda DO bisacodyl (Dulcolax) suppository 10 mg, 10 mg, Rectal, Daily PRN, Jose C Rueda DO busPIRone (Buspar) tablet 10 mg, 10 mg, Oral, BID, Charlie Syed MD, 10 mg at 02/12/24 1033 cloNIDine (Catapres) tablet 0.1 mg, 0.1 mg, Oral, BID, Charlie Syed MD, 0.1 mg at 02/12/24 1033 hydrALAZINE (Apresoline) injection 10 mg, 10 mg, IntraVENous, q4h PRN, Charlie Syed MD labetalol (Normodyne,Trandate) injection 10 mg, 10 mg, IntraVENous, q1h PRN, Charlie Syed MD, 10 mg at 02/12/24 0810 ondansetron ODT (Zofran-ODT) disintegrating tablet 4 mg, 4 mg, Oral, q8h PRN OR ondansetron (Zofran) injection 4 mg, 4 mg, IntraVENous, q6h PRN, Jose C Kiza, DO polyethylene glycol (PEG) 3350 (Miralax) packet 17 g, 17 g, Oral, Daily PRN, Jose C Kiza, DO sodium chloride 0.9 % infusion, 5-250 mL/hr, IntraVENous, PRN, Jose C Kiza, DO sodium chloride 0.9 % infusion, 50 mL/hr, IntraVENous, Continuous, Charlie Syed MD, Last Rate: 75 mL/hr at 02/12/24 0004, 75 mL/hr at 02/12/24 0004 sodium chloride 0.9% (NS) flush 5-40 mL, 5-40 mL, IntraVENous, q12h, Jose C Kiza, DO, 10 mL at 02/12/24 1135 sodium chloride 0.9% (NS) flush 5-40 mL, 5-40 mL, IntraVENous, PRN, Jose C Kiza, DO spironolactone (Aldactone) tablet 25 mg, 25 mg, Oral, Daily, Rosario Pratt, Continuous Infusions: sodium chloride, 50 mL/hr, Last Rate: 75 mL/hr (02/12/24 0004) Allergies: Patient has no allergy information on record. ROS: Unable to obtain ROS due to patient intubated/comatose/clinical condition Objective: Telemetry: Arrhythmia:No Physical Examination: Patient Vitals for the past 8 hrs: BP Temp Temp src Pulse Resp SpO2 02/12/24 1700 (!) 183/53 -- -- 64 16 99 % 02/12/24 1645 (!) 185/61 -- -- 63 14 99 % 02/12/24 1530 (!) 176/46 -- -- 71 16 100 % 02/12/24 1523 (!) 177/52 -- -- 69 16 100 % 02/12/24 1515 (!) 160/145 -- -- 69 15 100 % 02/12/24 1500 157/78 -- -- 69 19 98 % 02/12/24 1445 (!) 153/141 -- -- 67 17 100 % 02/12/24 1430 (!) 178/48 -- -- 68 20 100 % 02/12/24 1415 (!) 163/46 -- -- 66 22 100 % 02/12/24 1400 160/65 -- -- 65 17 100 % 02/12/24 1345 (!) 144/30 -- -- 65 18 99 % 02/12/24 1330 (!) 157/39 -- -- 64 20 98 % 02/12/24 1315 (!) 156/37 -- -- 66 20 99 % 02/12/24 1300 (!) 157/48 -- -- 65 23 99 % 02/12/24 1230 (!) 156/37 -- -- 66 17 99 % 02/12/24 1215 (!) 163/48 -- -- 65 19 99 % 02/12/24 1200 160/58 37.3 ?C (99.2 ?F) Temporal 68 25 99 % 02/12/24 1145 (!) 162/49 -- -- 68 23 100 % 02/12/24 1130 (!) 137/112 -- -- 66 18 99 % 02/12/24 1115 (!) 157/39 -- -- 66 18 99 % 02/12/24 1100 (!) 171/55 -- -- 71 21 99 % 02/12/24 1045 (!) 157/40 -- -- 69 19 99 % 02/12/24 1030 (!) 167/51 -- -- 69 22 98 % 02/12/24 1015 (!) 153/45 -- -- 70 20 99 % 02/12/24 1000 (!) 160/46 -- -- 70 17 99 % 02/12/24 0945 (!) 150/109 -- -- 68 (!) 28 99 % 02/12/24 0930 157/81 -- -- 67 25 98 % I/O last 3 completed shifts: In: 1463.8 [P.O.:1000; I.V.:463.8] Out: 280 [Urine:280] General Physical Examination: General: Elderly female with head tremor HEENT: Left pupil-irregular and enlarged-has an appearance of previous cataract surgery-no reaction to light. Right pupil 3 mm round equal reactive light and brisk. She does have left eye [id number]-muryssb-[id number] patient also confirms is at baseline. CV: Regular rhythm Pulm: Nonlabored respirations Abdomen: Soft nontender Skin: Skin petechiae over arms in the area of the blood pressure cuff. Extremities: Bilateral pitting edema Neurological Examination: NIHSS 1a Level of consciousness: 0=alert; keenly responsive 1b. LOC questions: 0=Performs both tasks correctly 1c. LOC commands: 0=Performs both tasks correctly 2. Best Gaze: 0=normal 3. Visual: 1=Partial hemianopia (loss of vision in left eye- prior to admission) 4. Facial Palsy: 1=Minor paralysis (flattened nasolabial fold, asymmetric on smiling) 5a. Motor left arm: 0=No drift, limb holds 90 (or 45) degrees for full 10 seconds 5b. Motor right arm: 0=No drift, limb holds 90 (or 45) degrees for full 10 seconds 6a. motor left le=No drift, limb holds 90 (or 45) degrees for full 10 seconds 6b Mot (more content not included)...[facility]04-09-2024 Note Referral placed to [facility] via fax per TCC request. Await review and response regarding ability to accept. [facility] notified. [facility] NoteCare Management Progress Note TCC received HCPOA, Living Will and insurance information via email. TCC printed copies of each and placed in chart. TCC forwarded copies of insurance information to financial advocates via email. TCC updated EHR emergency contacts with HCPOA information per document. Discharge Milestones and Delays Expected Date/Time: 02/18/[address] discharge order Complete med reconciliation Case mgmt discharge readiness Clinical Stability Diagnsotic Workup Expected Discharge History Expected Date/Time Set By Reviewed At 02/18/2024 Cherise Fonseca RN 02/12/2024 7:45 AM 02/18/2024 Jose C Rueda DO 02/11/2024 11:39 PM 02/18/2024 Jose C Rueda DO 02/11/2024 11:25 PM Length of Stay (Days): 1 GMLOS: No GMLOS [facility]* Care Coordination - Loraine Vázquez - 02/12/2024 2:49 PM EDT Referral placed to [facility] via fax per TCC request. Await review and response regarding ability to accept. [facility]CC notified. [id number]* Care Coordination - Loraine Vázquez - 02/12/2024 2:49 PM EDT Referral placed to [facility] via fax per TCC request. Await review and response regarding ability to accept. TCC notified. [facility] [id number] Note* Care Coordination - Cherise Fonseca RN - 02/12/2024 2:29 PM EDT Images from the original note were not included. Care Management Progress Note [facility] received HCPOA, Living Will and insurance information via email. [facility] printed copies of each andplaced in chart. [facility] forwarded copies of insurance information to financial advocates via email. [facility] updated EHR emergency contacts with HCPOA information per document. Discharge Milestones and Delays Expected Date/Time: 02/18/[address] discharge order Complete med reconciliation Case mgmt discharge readiness Clinical Stability Diagnsotic Workup Expected Discharge History Expected Date/Time Set By Reviewed At 02/18/2024 Cherise Fonseca RN 02/12/2024 7:45 AM 02/18/2024 Jose C Rueda DO 02/11/2024 11:39 PM 02/18/2024 Jose C Rueda DO 02/11/2024 11:25 PM Length of Stay (Days): 1 GMLOS: No GMLOS Documented [facility] [id number] Note* Care Coordination - Cherise Fonseca RN - 02/12/2024 2:29 PM EDT Images from the original note were not included. Care Management Progress Note TCC received HCPOA, Living Will and insurance information via email. TCC printed copies of each andplaced in chart. TCC forwarded copies of insurance information to financial advocates via email. [facility] updated EHR emergency contacts with HCPOA information per document. Discharge Milestones and Delays Expected Date/Time: 02/18/[address] discharge order Complete med reconciliation Case mgmt discharge readiness Clinical Stability Diagnsotic Workup Expected Discharge History Expected Date/Time Set By Reviewed At 02/18/2024 Cherise Fonseca RN 02/12/2024 7:45 AM 02/18/2024 Jose C Rueda DO 02/11/2024 11:39 PM 02/18/2024 Jose C Rueda DO 02/11/2024 11:25 PM Length of Stay (Days): 1 GMLOS: No GMLOS Documented [place] [id number] Note* Care Coordination - Cherise Fonseca RN - 02/12/2024 1:24 PM EDT Care Managment Initial Assessment Date: 02/12/2024 Patient Name: Lucho Gillespie : 1940 Patient Information Source of Information: Patient Echo Vasc Tech Name/Contact Information: Jose C Bal [phone] Cognition/Language: Confused at baseline Permission given to speak with patient customer care representative/caregiver as indicated: Yes Confirmation of Payer with patient/family: Yes Payer Name: Medicare/[employer] [place]: No Confirmation of Primary Care Physician: Confirmed PCP Name: Silvana Deleon Seen in last 2 years?: Yes Primary Caregiver: Self If assistance needed, confirmed caregiver ready, willing and able to care for patient at discharge: Confirmed with: Living Arrangements Current Residence: Number of Floors Number of Entry Steps: Bed/Bath Levels: [facility] Facility Name: [facility] Plan to Return: Yes Lives with: Other (Comment) (facility) Support Systems: Comments (Other), Children (facility) Activities of Daily Living Ambulation: Assistance Bathing/Dressing: Assistance Elimination/Continence/Toileting: Assistance Feeding: Independent Who Assists with Activities of Daily Living: Instrumental Activities of Daily Living Prescription Coverage: Yes Pharmacy Used: facility Medication Management: Medication dispenser Who assists with medication securing and setup?: facility Transportation/Shopping: Assistance Provider Transportation/Shopping Assistance Provider Name: facility/family Transportation Mode: Payer provided transport service Needs Assistance with Transportation at Discharge: Yes Meal Preparation: Assistance Provider Meal Prep Assistance Provider Name: facility Laundry/Cleaning: Assistance Provider Laundry/Cleaning Assistance Provider Name: facility Finances/Bill Paying: Assistance Provider Finances/Bill Payer Assistance Provider Name: family Communication: Independent Types of Care Services/Equipment Utilized Care Services: Dialysis Type: NA Durable Medical Equipment: Walker Patient's Goal/Discharge Plan Patient expects to be discharged to: [facility] Discharge Planning Actions: Continue to follow Patient's Choice Rights and [employer] and Collaborative Relationships Disclosed as Indicated for Post-Acute Care: Interdisciplinary Team Engagement: PT/OT Social Work Referral for: Transportation Assistance Additional Information: Chart reviewed. Patient admitted to [facility] ICU for ischemic stroke s/p TNK 02/11/2024. Consults to IP CONSULT TO CASE MANAGEMENT IP CONSULT TO NEUROLOGY IP WOUND CARE NURSE CONSULT TO EVAL Initial Assessment: Spoke with patient and son Jose C at bedside. Introduced myself and role as TCC. IA complete. Patientpersonal information confirmed. TCC updated EC section of EHR. Jose C states that he has her insurance information and HCPOA; Jose C plans to email copies to [facility]. Patient currently from [facility]. TCC called facility to confirm services [phone] - [facility] tasked APRON MAN to send referral via careport. following for transportation and an AL assistance. Discharge Planning Barrier: NIH 4. 2LNC- none baseline. IVMF. PT/OT pending. Discharge Plan: [facility] vs Care Home. Awaiting PT/OT evals, clinical stability and medical clearance. Will continue to follow with SW. Cherise Fonseca RN [facility] [id number] Note* Care Coordination - Cherise Fonseca RN - 02/12/2024 1:24 PM EDT Care Managment Initial Assessment Date: 02/12/2024 Patient Name: Lucho Gillespie : 1940 Patient Information Source of Information: Patient Echo Vasc Tech Name/Contact Information: Jose C Bal [phone] Cognition/Language: Confused at baseline Permission given to speak with patient customer care representative/caregiver as indicated: Yes Confirmation of Payer with patient/family: Yes Payer Name: Medicare/[employer] : No Confirmation of Primary Care Physician: Confirmed PCP Name: Silvana Deleon Seen in last 2 years?: Yes Primary Caregiver: Self If assistance needed, confirmed caregiver ready, willing and able to care for patient at discharge: Confirmed with: Living Arrangements Current Residence: Number of Floors Number of Entry Steps: Bed/Bath Levels: Facility: [facility] Facility Name: [facility] Plan to Return: Yes Lives with: Other (Comment) (facility) Support Systems: Comments (Other), Children (facility) Activities of Daily Living Ambulation: Assistance Bathing/Dressing: Assistance Elimination/Continence/Toileting: Assistance Feeding: Independent Who Assists with Activities of Daily Living: Instrumental Activities of Daily Living Prescription Coverage: Yes Pharmacy Used: facility Medication Management: Medication dispenser Who assists with medication securing and setup?: facility Transportation/Shopping: Assistance Provider Transportation/Shopping Assistance Provider Name: facility/family Transportation Mode: Payer provided transport service Needs Assistance with Transportation at Discharge: Yes Meal Preparation: Assistance Provider Meal Prep Assistance Provider Name: facility Laundry/Cleaning: Assistance Provider Laundry/Cleaning Assistance Provider Name: facility Finances/Bill Paying: Assistance Provider Finances/Bill Payer Assistance Provider Name: family Communication: Independent Types of Care Services/Equipment Utilized Care Services: Dialysis Type: NA Durable Medical Equipment: Walker Patient's Goal/Discharge Plan Patient expects to be discharged to: [facility] Discharge Planning Actions: Continue to follow Patient's Choice Rights and [employer] and Collaborative Relationships Disclosed as Indicated for Post-Acute Care: Interdisciplinary Team Engagement: PT/OT Social Work Referral for: Transportation Assistance Additional Information: Chart reviewed. Patient admitted to [facility] ICU for ischemic stroke s/p TNK 02/11/2024. Consults to IP CONSULT TO CASE MANAGEMENT IP CONSULT TO NEUROLOGY IP WOUND CARE NURSE CONSULT TO EVAL Initial Assessment: Spoke with patient and son Jose C at bedside. Introduced myself and role as TCC. IA complete. Patientpersonal information confirmed. TCC updated EC section of EHR. Jose C states that he has her insurance information and HCPOA; Jose C plans to email copies to TCC. Patient currently from [facility]. TCC called facility to confirm services [phone] - TCC tasked APRON MAN to send referral via careport. SW following for transportation and an AL assistance. Discharge Planning Barrier: NIH 4. 2LNC- none baseline. IVMF. PT/OT pending. Discharge Plan: [facility] Living vs Care Home. Awaiting PT/OT evals, clinical stability and medical clearance. Will continue to follow with SW. Cherise Fonseca RN [facility]04-09-2024 Note Attestation signed by Joy Page DO at 02/12/2024 1:30 AM Admitted to for post stroke care after suspected CVA with fibrinolytic administered prior to arrival. Initially patient with left sided weakness, and aphasia. Now patient aphasia is improved but still present per son, left arm weakness improving as well but still slightly weak Neuro/psych: - No acute pain/sedation infusion needs - MRI in daytime - CVA core measures Cardio/hemodynamic: - Hemodynamically stable without vasopressors/inotropes -BP at goal without medications Pulm/resp: No respiratory distress GI: - Diet pending swallow eval Renal/: - Camacho Not indicated, External urinary collection appropriate - Fluids per NCC - I/O Goal even - Cr 2.13 unsure baseline ID: - Source none - Abx none indicated - Cultures reportedly sent at OSH, - Afebrile but temp is elevated Endo: - Insulin ICS PRn - Steroids not indicated No results found for: POCGLU Heme: - ppx per protocol after 24 hours - Hgb/plt low - no evidence of hemodynamically significant bleeding Global: ICU Length of stay - 1h Dispo: MICU Barrier to transfer: 24 hours post fibrinolytics I reviewed the BERTA/Resident's note and agree with the documented findings and plan of care. The reason the patient is critically ill and the nature of the treatment and management provided by the teaching physician (me) to manage the critically ill patient is: Ischemic stroke (HCC) The patient was critically ill during the time that I saw the patient. The Critical Care Time excluding procedures was 35 minutes Joy Page, DO Internal Medicine: MICU Initial History and Physical Name: Lucho Gillespie : 1940(83 y.o.) Date: 02/12/24 Attending: Dr. Page Subjective: Chief Complaint: Stroke, post TNK HPI: Patient was transferred from OSH after receiving TNK. At OSH she was noted to have expressive aphasia, and Right hemiplegia. Her NIH was 12 at OSH. She was transferred to [facility] for further workup and treatment. Of note, she was placed on a Cardene drip to support her BP when getting transferred. At arrival to the [facility] ED, vitals were significant for BP 112/46, Cardene drip discontinued. SPO2 93% on RA. NIH completed with a total of 8 for patient not knowing month, partial hemianopia of the Right, left facial palsy, right arm drift that did not hit the bed, mild to moderate loss of sensation, aphasia, and tactile extinction/inattention. On physical exam, it was noted that she had anisocoria with the left pupil at 4mm vs the right at 2mm. A repeat CT wo contrast was completed that did not show any significant changes when compared to the CT completed approximately 7 hrs prior. No acute intracranial hemorrhage was noted. No past medical history on file. No past surgical history on file. No family history on file. Social History Socioeconomic History Marital status: Not on file Spouse name: Not on file Number of children: Not on file Years of education: Not on file Highest education level: Not on file Occupational History Not on file Tobacco Use Smoking status: Not on file Smokeless tobacco: Not on file Substance and Sexual Activity Alcohol use: Not on file Drug use: Not on file Sexual activity: Not on file Other Topics Concern Not on file Social History Narrative Not on file Social Determinants of Health Financial Resource Strain: Not on file Food Insecurity: Not on file Transportation Needs: Not on file Physical Activity: Not on file Stress: Not on file Social Connections: Not on file Intimate Partner Violence: Not on file Housing Stability: Not on file Not on File Prior to Admission medications Not on File Objective: Oxygen Delivery: O2 Flow Rate (L/min): 2 L/min VITALS: BP 142/91 Pulse 78 Temp 37.1 ?C (98.8 ?F) Resp 16 SpO2 98% CURRENT PULSE OXIMETRY: SpO2: 98 % Review of Systems Unable to perform ROS: Acuity of condition Constitutional: Negative for fever. Eyes: Left eyelid droop Respiratory: Positive for shortness of breath. Cardiovascular: Positive for leg swelling. Skin: Ecchymosis left dorsal hand Neurological: Positive for tremors, facial asymmetry, speech difficulty and numbness. Constitutional: General Appearance []WDWN [x]Obese []Cachectic []Thin []Ill Eyes: Inspection of Pupils/Irises Pupils round and react: [x]Yes-anisocoria, left pupil dilated to 4mm vs 2mm right []No Sclera: []Icteric [x]Non-Icteric Inspection of Conjunctiva/Lids Conjunctiva: []Injected [x]Non-Injected Lids: [x]Intact []Lesion Present ENT/Mouth: External Inspection of ears/nose [x] Normal [] Scar/Lesion/Mass Inspection of teeth/lips/gums Dentition: [x]Ione Teeth []Den (more content not included)...[facility]04-09-2024 Hospital Discharge instructions* Discharge Instructions* Pat River RN - 02/12/2024 1:26 AM EDT Refer to the Understanding Stroke Booklet given to you, written material provided to patient/family, addressing all signs & symptoms of a stroke, which are: sudden numbness or weakness of the face, arm or leg, especially on one side of the body sudden confusion sudden difficulty speaking or understanding sudden trouble seeing in one or both eyes sudden trouble walking,dizziness, loss of balance or coordination sudden severe headache with no known cause syncope or temporary loss of consciousness seizure Explained the need to call EMS (911) immediately if signs & symptoms occur. Discussed medications that the patient is taking, will review medications again prior to discharge, risk factors, and the need for follow-up with a physician/CIGAR BANDER/PA after discharge. Barrington Delaney RN on 02/12/24 at 1:26 AM Discussed the patient s personal risk factors for Stroke /TIA with patient/family, and ways to reduce the risk for a recurrent stroke. Patient's personal risk factors which were identified are: [x] High blood pressure [x] High cholesterol [] Atrial fibrillation [] Diabetes [] Smoking/e-cigarettes/vaping [] Smokeless tobacco [x] Overweight [x] Lack of Exercise [x] Sleep apnea [] Prior heart disease or heart attack [] Excessive alcohol use [] Use of illicit drugs [x] Personal history of previous TIA or stroke [] Family history of stroke or heart disease [] Carotid stenosis [] Heart failure [] Patent Foramen Ovale [] Migraine [] Hormone replacement therapy [] Current (up to six weeks post ) [] Depression [] Sickle Cell [] Renal insufficiency - chronic [] None Refer to Understanding Stroke Booklet. Advised patient that risk for stroke/TIA can be reduced by modifying/controlling risk factors. Patient advised to take medications as prescribed, which will be detailed in the discharge instructions, and to not stop taking them without consulting a physician. In addition, pt. advised to maintain a healthy diet, exercise regularly and to not smoke. Barrington Delaney, RN on 02/12/24 at 1:26 AM * Discharge Instr - KIA* Rosario Rose RN - 02/14/2024 12:45 PM EDT Images from the original note were not included. Continuity of Care Form Patient Name: Lucho Gillespie : 1940 Admit date: 02/11/2024 Discharge date: February 16, 2024 Code Status Order: Full Code Advance Directives: N Admitting Physician: Joy Page DO PCP: Avelino Deleon Discharging Nurse: Mckayla Discharging [facility] Unit/Room#: W3-324/W3-324 B Discharging Unit Emergency Contact: Extended Emergency Contact Information Primary Emergency Contact: TomasaJose C grayson Mobile Relation: Son Secondary Emergency Contact: Violetta Koroma Sriram Mobile Relation: Daughter Past Surgical History: No past surgical history on file. Immunization History: There is no immunization history on file for this patient. Active Problems: Medical Problems Problem List * (Principal) Ischemic stroke (HCC) Isolation/Infection: No active isolations No active infections Nurse Assessment: Last Vital Signs: BP 150/50 Pulse 70 Temp 37.1 C (98.8 F) (Temporal) Resp 16 SpO2 94% Last documented pain score (0-10 scale): Last Weight: Wt Readings from Last 1 Encounters: No data found for Wt Mental Status: KIA Patient Mental Status: oriented and alert IV Access: KIA IV Access: None Nursing Mobility/ADLs: Walking Total assistance Transfer Total assistance Bathing Total assistance Dressing Total assistance Toileting Total assistance Feeding Minimal assistance Refinery Technician Minimal assistance Med Delivery yes Wound Care Documentation and Therapy Mepilex foam to old sacral wound L stomach fold tear open to air Elimination: Continence: Bowel: yes Bladder: yes Urinary Catheter: None Colostomy/Ileostomy/Ileal Conduit: None Date of Last BM: 02/16/24 Intake/Output Summary (Last 24 hours) at 02/14/2024 1235 Last data filed at 02/14/2024 0700 Gross per 24 hour Intake 440 ml Output 1300 ml Net -860 ml I/O last 3 completed shifts: In: 3017 [P.O.:1320; I.V.:1697] Out: 1350 [Urine:1350] Safety Concerns: history of falls (last 30 days) Impairments/Disabilities: none Nutrition Therapy: Current Nutrition Therapy: Oral diet: general Routes of Feeding: oral Liquids: thin liquids Daily Fluid Restriction: no Last Modified Barium Swallow with Video (Video Swallowing Test): not done Treatments at the Time of Hospital Discharge: Respiratory Treatments: none Oxygen Therapy: is not on home oxygen therapy. Ventilator: No ventilator support Rehab Therapies: physical therapy, occupational therapy, recreation therapy, nursing, and aide Weight Bearing Status/Restrictions: no restriction Other Medical Equipment (for information only, NOT a DME order): bedside commode, rolling walker, shower chair, and tub transfer bench Other Treatments: none Patient's personal belongings (please select all that are sent with patient): glasses and clothing RN SIGNATURE: MANAGEMENT/SOCIAL WORK SECTION Inpatient Status Date: 02/11/24 Readmission Risk Assessment Score: @[email or web address]@ Discharging to Facility/ Agency [facility] [address] [place] [address] [phone] ext [phone] CALL REPORT TO [phone] EXT [phone] Dialysis Facility (if applicable) Name: Address: Dialysis Schedule: Phone: Fax: [employer] Director/Set Key Driver signature: at12:37 PM PHYSICIAN SECTION Prognosis: excellent Condition at Discharge: stable Rehab Potential (if transferring to Rehab): excellent Recommended Labs or Other Treatments After Discharge: BMP/CBC within 3 days. Follow up with PCP within 1 week to review all medications and findings of this admission. Physician Certification: I certify the above information and transfer of Lucho Gillespie is necessary for the continuing treatment of the diagnosis listed and that she requires jail facility for less than 30 days. Update Admission H&P: No change in H&P PHYSICIAN SIGNATURE: documented in this [facility]04-09-2024 History and physical note* Katy Garcia MD - 02/12/2024 12:00 AM EDT Images from the original note were not included. Internal Medicine: MICU Initial History and Physical Name: Lucho Gillespie : 1940(83 y.o.) Date: 02/12/24 Attending: Dr. Page Subjective: Chief Complaint: Stroke, post TNK HPI: Patient was transferred from OSH after receiving TNK. At OSH she was noted to have expressive aphasia, and Right hemiplegia. Her NIH was 12 at OSH. She was transferred to [facility] for further workup and treatment. Of note, she was placed on a Cardene drip to support her BP when getting transferred. At arrival to the [facility] ED, vitals were significant for BP 112/46, Cardene drip discontinued. SPO2 93% on RA. NIH completed with a total of 8 for patient not knowing month, partial hemianopia of the Right, left facial palsy, right arm drift that did not hit the bed, mild to moderate loss of sensation, aphasia, and tactile extinction/inattention. On physical exam, it was noted that she had anisocoria with the left pupil at 4mm vs the right at 2mm. A repeat CT wo contrast was completed that did not show any significant changes when compared tothe CT completed approximately 7 hrs prior. No acute intracranial hemorrhage was noted. No past medical history on file. No past surgical history on file. No family history on file. Social History Socioeconomic History Marital status: Not on file Spouse name: Not on file Number of children: Not on file Years of education: Not on file Highest education level: Not on file Occupational History Not on file Tobacco Use Smoking status: Not on file Smokeless tobacco: Not on file Substance and Sexual Activity Alcohol use: Not on file Drug use: Not on file Sexual activity: Not on file Other Topics Concern Not on file Social History Narrative Not on file Social Determinants of Health Financial Resource Strain: Not on file Food Insecurity: Not on file Transportation Needs: Not on file Physical Activity: Not on file Stress: Not on file Social Connections: Not on file Intimate Partner Violence: Not on file Housing Stability: Not on file Not on File Prior to Admission medications Not on File Objective: Oxygen Delivery: O2 Flow Rate (L/min): 2 L/min VITALS: BP 142/91 Pulse 78 Temp 37.1 C (98.8 F) Resp 16 SpO2 98% CURRENT PULSE OXIMETRY: SpO2: 98 % Review of Systems Unable to perform ROS: Acuity of condition Constitutional: Negative for fever. Eyes: Left eyelid droop Respiratory: Positive for shortness of breath. Cardiovascular: Positive for leg swelling. Skin: Ecchymosis left dorsal hand Neurological: Positive for tremors, facial asymmetry, speech difficulty and numbness. Constitutional: General Appearance []WDWN [x]Obese []Cachectic []Thin []Ill Eyes: Inspection of Pupils/Irises Pupils round and react: [x]Yes-anisocoria, left pupil dilated to 4mm vs 2mm right []No Sclera: []Icteric [x]Non-Icteric Inspection of Conjunctiva/Lids Conjunctiva: []Injected [x]Non-Injected Lids: [x]Intact []Lesion Present ENT/Mouth: External Inspection of ears/nose [x] Normal [] Scar/Lesion/Mass Inspection of teeth/lips/gums Dentition: [x]Ione Teeth []Dentures Lips/Gums: [x]Intact []Lesion Present Mucosa: [x][place] [x]Moist []Dry Neck: External Appearance Overall Appearance: [x]Normal []Lesion/Mass/Crepitus Present Trachea midline: [x]Yes []No Thyroid [x]Normal []Enlarged []Tender []Mass []Absent Respiratory: Respiratory effort []Labored [x]Non-Labored [] Mechanically-Ventilated Auscultation [x]Clear []Crackles []Wheezes []Rhonchi Cardiovascular: Auscultation Rate: [x]Regular []Irregular []Tachycardia []Bradycardia Rhythm: [x]Regular []Irregular Murmur: []Present [x]Absent Extremities Peripheral Edema: [x]Present- +2 pitting edema []Absent Varicosities: [x]Present []Absent Gastrointestinal: Abdomen Palpation: [x]Soft []Firm []Tender []Non-Tender [x]Distended []Non-distended Mass: []Present [x]Absent Bowel Sounds: [x]Present []Absent Hernia: []Present [x]Absent Liver/Spleen: []Hepatosplenomegaly [x]Organomegaly Absent Musculoskeletal: Inspection of Digits and Nails Cyanosis: []Present [x]Absent Clubbing: []Present [x]Absent Ischemia: []Present [x]Absent Infection: []Present [x]Absent Extremities DE JESUS Equally: Except ([x]RUE []RLE []LUE []LLE) Strength/Tone: Intact and Normal ([x]RUE [x]RLE [x]LUE [x]LLE) Skin: Inspection []Normal [x]Ecchymosis present left dorsal right hand []Lesion []Ulcer Palpation [x]Warm []Cool []Dry []Clammy []Nodules []Induration []Skin-tightening Cap-Refill: [] <3 sec [] >3 seconds (delayed) Neurologic: GCS EYE: 4 - Opens spontaneously GCS MOTOR: 6 - Obeys commands for movement GCS VERBAL: 5 - Oriented to person, place, time... Only to person Total GCS: 14-15 [x] Sensation reduced Psych: Mental Status Alert: [x]Yes [] No Oriented: []x0 [x]X1 []X2 []x3 Mood/Affect [x]Normal []Flat []Agitated []Depressed []Anxious []Calm []Sedated []NAD Select Labs within last 24 hours- BMP: No results for input(s): NA, K, CL, CO2, BUN, CREATININE, CALCIUM, MG, PHOS in the last 72 hours. LFTs: No results for input(s): AST, ALT, PROT, ALBUMIN, BILITOT, BILIRUBINU, ALKPHOS,LIPASE in the last 72 hours. Glucose: No results for input(s): GLUCOSE, POCGLU, BHYDRXBUT in the last 72 hours. Procal: No results for input(s): PROCAL in the last 72 hours. CBC: No results for input(s): WBC, HGB, HCT, PLT, MCV, RDW in the last 72 hours. ABGs: No results for input(s): PHART, TBA6RHS, PO2ART, VWT6GKW, SO2ART, H9KJSUWM in thelast 72 hours. Lactic Acid: No results for input(s): LACTATE in the last 72 hours. INR: No results for input(s): INR in the last 72 hours. Cardiac Injury Profile: No results for input(s): CKTOTAL, CKMB, TROPONINI in the last 72 hours. Labs in Last 3 months: No results found for: TSH, VITD25, PSA, INR, GLUF Microbiology- Urine Cx: No results found for: URINECX Blood Cx: No results found for: BLOODCX Sputum Cx: No results found for: RESPCULT Gram Stain: No results found for: LABGRAM PNA PCR: No results found for: HUMANMETAPNE COVID19: No results found for: COVID19 Legionella Ag: No results found for: LEGIONELLAPN Strep Ag: No results for input(s): STREPPNEUMO in the last 72 hours. Imaging- CT head wo IV contrast Result Date: 02/11/2024 Patient Name: LUCHO GILLESPIE : 1940 [id number] Exam Date/Time: 02/11/2024 23:39 Procedure: CT HEAD WO IV CONTRAST Ordering Provider: SYED MADIHAH Reason For Exam: Neuro deficit, acute, stroke suspected CT HEAD: Clinical Indication: 83-year-old female; stroke protocol; left pupil is blown; patient has received TPA at another facility acouple hours ago Imaging Technique: Multiple axial 3mm CT images of the head were obtained from theskull base to the vertex. Coronal and sagittal reconstructs were rendered. Dose reduction was employed with automated exposure control. Comparison: CT head 02/11/2024 at 15:19 (outside facility) (report not available) Time: 23:25 on 02/11/2024 FINDINGS: There is no intracranial hemorrhage. There is mild global volume loss with mild spinal vessel ischemia. There is a remote old left occipital lobe infarct with encephalomalacia changes in commensurate dilatation of the adjacent lateral ventricle occipital horn. Vascular atherosclerotic calcifications are present. The sinuses are pneumatized. The globes appear symmetric. Prior lens surgery noted. The mastoid air cells are pneumatized. There is no significant change when compared to imaging performed approximately 7 hours earlier. Noacute intracranial hemorrhage. Old LEFT occipital lobe infarct. CRITICAL TEST COMMUNICATION: Dr. Syed was notified by telephone today at 11:36pm. ASPECTS: 10 Report Dictated on Electronically Signed By: Suzie Henriquez MD Electronically Signed Date/Time: 02/11/2024 11:40PM EDT CTA and CTP from other facility available in patient's physical chart Assessment and Plan: Principal Problem: Ischemic stroke (HCC) Assessment: Ischemic stroke: partial hemianopia of the Right, left facial palsy, right arm drift, loss of sensation, aphasia, and tactile extinction/inattention. Status post TNK. Debility Plan: Admit to ICU T2 - Neurochecks q15 minutes x 1 hour, followed by q30 minutes x 6 hours and then q1h x 24 hours SBP <180 mmHg, DBP <110 mmHg, MAP >65 mmHg -Cardene drip for SBP less than 180mmgHg and DBP less than 110 mmHg - Complete bedrest - No antiplatelets/antiothrombotics in first 24 hours after tPA - NPO until swallow evaluation - NO invasive lines, (camacho/NG/central line or arterial punctures at non- compressible sites for 24 hours) - repeat CT head in 24 hours after tPA or with any change in neurological examination unless MRI isdone instead. - MRI brain without contrast. (Add contrast if MRA neck is being done with contrast ) - MRA head without contrast (Do NOT ORDER IF CTA done in ED) - MRA neck with and without contrast (Do NOT ORDER IF CTA done in the ED) ( No contrast if allergy or CRF) - TTE (Do NOT ORDER IF PATIENT WITH KNOWN AF or IF one done in last 6 months) - Telemetry monitoring for 24 hrs - Fall precautions - Speech and Swallow evaluation, nutrition consultation - Physical and occupational therapy consultation - Rehab consultation - IPC for VTE prevention -Obtain records from other facility and complete med rec. GI Prophylaxis: Pantoprazole IV DVT Prophylaxis: No antiplatelets/antiothrombotics in first 24 hours after tPA. SCDs for now BMI Classification: There is no height or weight on file to calculate BMI. Disposition: Admit to ICU, T2 Associated attestation - Joy Page DO - 02/12/2024 1:30 AM EDT Admitted to T2 for post stroke care after suspected CVA with fibrinolytic administered prior to arrival. Initially patient with left sided weakness, and aphasia. Now patient aphasia is improved but still present per son, left arm weakness improving as well but still slightly weak Neuro/psych: - No acute pain/sedation infusion needs - MRI in daytime - CVA core measures Cardio/hemodynamic: - Hemodynamically stable without vasopressors/inotropes -BP at goal without medications Pulm/resp: No respiratory distress GI: - Diet pending swallow eval Renal/: - Camacho Not indicated, External urinary collection appropriate - Fluids per NCC - I/O Goal even - Cr 2.13 unsure baseline ID: - Source none - Abx none indicated - Cultures reportedly sent at OSH, - Afebrile but temp is elevated Endo: - Insulin ICS PRn - Steroids not indicated No results found for: POCGLU Heme: - ppx per protocol after 24 hours - Hgb/plt low - no evidence of hemodynamically significant bleeding Global: ICU Length of stay - 1h Dispo: MICU Barrier to transfer: 24 hours post fibrinolytics I reviewed the BERTA/Resident's note and agree with the documented findings and plan of care. The reason the patient is critically ill and the nature of the treatment and management provided by the teaching physician (me) to manage the critically ill patient is: Ischemic stroke (HCC) The patient was critically ill during the time that I saw the patient. The Critical Care Time excluding procedures was 35 minutes Joy Page DO [facility] [employer] Work Phone: [phone] 414-415804-08-2024 Consult note* Katy Garcia MD - 02/11/2024 11:47 PM EDTAssociated Order(s): IP CONSULT TO NEUROLOGY STROKE TEAM NOTE Patient Name: Lucho Gillespie Patient : 1940 Acct: [id number] Date of Admission: 02/11/2024 Room/Bed: T2-213/T2-213 A PCP: No primary care provider on file. Stroke team; ED Transferred from outside hospital History of Present Ilness: 83 y.o. is R handed female with the chief Complaint of: ischemic stroke,post TNK PMH unknown Patient was transferred from OSH after receiving TNK. At OSH she was noted to have expressive aphasia, and Right hemiplegia. Her NIH was 12 at OSH. She was transferred to [facility] for further workup and treatment. Of note, she was placed on a Cardene drip to support her BP when getting transferred. At arrival to the [facility] ED, vitals were significant for BP 112/46, Cardene drip discontinued. SPO2 93% on RA. NIH completed with a total of 8 for patient not knowing month, partial hemianopia of the Right, left facial palsy, right arm drift that did not hit the bed, mild to moderate loss of sensation, aphasia, and tactile extinction/inattention. On physical exam, it was noted that she had anisocoria with the left pupil at 4mm vs the right at 2mm. A repeat CT wo contrast was completed that did not show any significant changes when compared tothe CT completed approximately 7 hrs prior. No acute intracranial hemorrhage was noted. Onset time: last seen well;1300 ED arrival: 2320 Stroke teamactivation 2251 NIHSS upon arrival:8 Associated symptoms: right arm weakness, loss of sensation, left facial palsy, aphasia This occurred in the setting of: PMH unknown Current use of anticoagulants: none If on anticoagulants when was last dose:NA Preadmission secondary prevention antiplatelets and statins:unknown History of AF:Unknown Contraindications for thrombolytic treatment: Yes- received thrombolytics prior to admissions at [facility] earlier today Home Medications: Prior to Admission medications Not on File Current Hospital Medications: Current Facility-Administered Medications: acetaminophen (Tylenol) tablet 650 mg, 650 mg, Oral, q6h PRN OR acetaminophen (Tylenol) suppository 650 mg, 650 mg, Rectal, q6h PRN, Jose C Rueda, DO atorvastatin (Lipitor) tablet 40 mg, 40 mg, Oral, Daily, Jose C Claudeza, DO bisacodyl (Dulcolax) suppository 10 mg, 10 mg, Rectal, Daily PRN, Jose C Kiza, DO labetalol (Normodyne,Trandate) injection 10 mg, 10 mg, IntraVENous, q10 min PRN, Jose C Kiza, DO niCARdipine (Cardene) infusion 20mg in 0.9 % sodium chloride 200mL (premix), 2.5-15 mg/hr, IntraVENous, Continuous, Jose C Kiza, DO ondansetron ODT (Zofran-ODT) disintegrating tablet 4 mg, 4 mg, Oral, q8h PRN OR ondansetron (Zofran) injection 4 mg, 4 mg, IntraVENous, q6h PRN, Jose C Kiza, DO polyethylene glycol (PEG) 3350 (Miralax) packet 17 g, 17 g, Oral, Daily PRN, Jose C Kiza, DO sodium chloride 0.9 % infusion, 5-250 mL/hr, IntraVENous, PRN, Jose C Kiza, DO sodium chloride 0.9 % infusion, 75 mL/hr, IntraVENous, Continuous, Jose C Kiza, DO, Last Rate: 75 mL/hr at 02/12/24 0004, 75 mL/hr at 02/12/24 0004 sodium chloride 0.9% (NS) flush 5-40 mL, 5-40 mL, IntraVENous, q12h, Jose C Kiza, DO sodium chloride 0.9% (NS) flush 5-40 mL, 5-40 mL, IntraVENous, PRN, Jose C Kiza, DO Continuous Infusions: niCARdipine, 2.5-15 mg/hr sodium chloride, 75 mL/hr, Last Rate: 75 mL/hr (02/12/24 0004) Allergies: Patient has no allergy information on record. Social History: TOBACCO: has no history on file for tobacco use. ETOH: has no history on file for alcohol use. RECREATIONAL DRUG USE: Social History Substance and Sexual Activity Drug Use Not on file FamilyHistory: :. @[facility]@ [facility]; :A complete review of system was performed , pertinent positives noted and remainderare negative Review of Systems Respiratory: Positive for shortness of breath. Skin: Ecchymosis over dorsal left hand Neurological: Positive for tremors (bilateral upper extremities), facial asymmetry (slight left sided facial droop) and numbness. Physical Examination: Patient Vitals for the past 8 hrs: BP Temp Temp src Pulse Resp SpO2 02/12/24 0000 142/91 37.1 C (98.8 F) -- 78 16 -- 02/11/24 2326 (!) 129/113 -- -- 75 18 98 % 02/11/24 2311 (!) 112/46 37.4 C (99.4 F) Oral 78 18 93 % No intake/output data recorded. VITAL SIGNS : HR78 , BP 112/46 , RR 18. Pulse Ox 98% on 2L NC General Physical Examination: General: HEENT:Normocephalic, atraumaticl CV: S1+S2, RRR, no MRG. Pulm:CTA b/l, unlabored Abdomen: Soft NT/ND. BS + Skin: ecchymosis back of left hand Extremities: bilateral 2+ pitting edema Orthopedic limitation; N/A Pulses: Intact peripherally Carotid auscultation :No bruits Neurological Examination: Higher Functions: Mental Status Exam: Level of Alertness:Awake Orientation: Normal to self Memory: Normal Fund of Knowledge: Normal Language: Expresive aphasia Dysarthria present Cranial Nerves: -II Visual acuity: normal, wearing corrective glasses -II Visual rashid: Right Homonymous anopia -III Pupils (~ 2 mm OD, 4 mm OU) Right reactive to light -III-IV- Extraocular Movements: intact -Nystagmus not present -Saccades and pursuits normal -V Facial sensation: intact Corneal's Intact bilateral -VII Facial strength: abnormal left sided slight paralysis -VIII Hearing: intact -IX-X- Gag reflex present -X Palate:intact -XI Shoulder shrug: intactnormal -XII Tongue movement: normal Funduscopic Exam: normal, no edema or exudates both eyes Motor Examination: Tone after evaluation of 4 limbs, the following findings applied: limited testing by body habitus . all limbs -Bulk: normal -Muscle Stretchafter evaluation of all limbs, and axial musculature the following findings applied: Drift: present right arm normal other extremities -Reflexes: after evaluation of 4 limbs, the following findings applied ; normal all limbs -Plantar responce: Flexor bilaterally Sensory Decreased Coordination: Arms limited reliability of exam/ poorparticipation Legs Intact heel knee hill testing Tremors Present on both upper extremities Gait Patient unable to do gait test during evaluation NIHSS 1a Level of consciousness: 0=alert; keenly responsive 1b. LOC questions: 1=Performs one task correctly 1c. LOC commands: 0=Performs both tasks correctly 2. Best Gaze: 0=normal 3. Visual: 1=Partial hemianopia 4. Facial Palsy: 1=Minor paralysis (flattened nasolabial fold, asymmetric on smiling) 5a. Motor left arm: 0=No drift, limb holds 90 (or 45) degrees for full 10 seconds 5b. Motor right arm: 1=Drift, limb holds 90 (or 45) degrees but drifts down before full 10 seconds:does not hit bed 6a. motor left le=No drift, limb holds 90 (or 45) degrees for full 10 seconds 6b Motor right le=No drift, limb holds 90 (or 45) degrees for full 10 seconds 7. Limb Ataxia: 1=Present in one limb 8. Sensory: 1=Mild to moderate sensory loss; patient feels pinprick is less sharp or is dull on theaffected side; there is a loss of superficial pain with pinprick but patient is aware She is being touched 9. Best Language: 1=Mild to moderate aphasia; some obvious loss of fluency or facility of comprehension without significant limitation on ideas expressed or form of expression. 10. Dysarthria: 0=Normal 11. Extinction and Inattention: 1=Visual, tactile, auditory, spatial or personal inattention or extinction to bilateral simultaneous stimulation in one of the sensory modalities 12. Distal motor function: 0=Normal Total: 8 Ancillary Data: Labs: Recent Results (from the past 24 hour(s)) ECG 12 lead if not done in the ED Collection Time: 02/12/24 12:12 AM Result Value Ref Range Heart Rate 78 bpm QRSD Interval 99 ms QT Interval 432 ms QTC Interval 493 ms P [place] 0 degrees QRS [place] 1 degrees T Wave [place] 35 degrees MN Interval 70 ms No results for input(s): PH, PO2, PCO2, HCO3, O2SAT in the last 72 hours. No lab exists for component: BE No results for input(s): INR in the last 72 hours. Radiology: CT head: 02/11/24 9569 There is no significant change when compared to imaging performed approximately 7 hours earlier. Noacute intracranial hemorrhage. Old LEFT occipital lobe infarct. CTA: Not completed CT perfusion: Not completed ASSESSMENT Ischemic stroke, post TNK PLAN/RECOMMENDATIONS: Admit to ICU T2 - Neurochecks q15 minutes x 1 hour, followed by q30 minutes x 6 hours and then q1h x 24 hours SBP <180 mmHg, DBP <110 mmHg, MAP >65 mmHg - Complete bedrest - No antiplatelets/antiothrombotics in first 24 hours after tPA - NPO until swallow evaluation - NO invasive lines, (camacho/NG/central line or arterial punctures at non- compressible sites for 24 hours) - repeat CT head in 24 hours after tPA or with any change in neurological examination unless MRI isdone instead. - MRI brain without contrast. (Add contrast if MRA neck is being done with contrast ) - MRA head without contrast (Do NOT ORDER IF CTA done in ED) - MRA neck with and without contrast (Do NOT ORDER IF CTA done in the ED) ( No contrast if allergy or CRF) - TTE (Do NOT ORDER IF PATIENT WITH KNOWN AF or IF one done in last 6 months) - Telemetry monitoring for 24 hrs - Fall precautions - Speech and Swallow evaluation, nutrition consultation - Physical and occupational therapy consultation - Rehab consultation - IPC for VTE prevention Reason for no use of thrombolytic if applicable: Received thrombolytic at outside hospital prior totransfer Reason if no thrombectomy if applicable: not identified vascular occlusion accesable for intervention Discussed with Dr. Syed Associated attestation - Charlie Syed MD - 02/12/2024 5:19 PM EDT Neurocritical Care Attending: Attestation of Stroke Team Date of Stroke Team 02/11/24 I personally spent total critical care time [x] 34, []50 , [] 70 minutes performing a face to face diagnostic evaluation of this patient in company of my : []BERTA [] resident [] Medical student and reviewing stat labs, stat imaging studies and the electronic medical record, performing a history/physical examination of patient; as well as counseling/coordinating care, discussion urgent management, diagnostic impressions and the plan of care with the toña ent/emergency department. I personally attended and ran the emergent stroke team intended for urgent evaluation and treatmentof acute progressive neurological changes. I have reviewed the note written as above by my: []BERTA [x] resident and agree with all documented the following additions: 83-year-old patient with hypertension, renal artery stenosis, CKD and previous ischemic stroke-[facility] of sudden onset of right hemiparesis and aphasia. Received the initial phone call from OSH ER physician-patient had been given IV tenecteplase within the window at [place] ED. patient was markedly hypertensive with a systolic blood pressure in the 200s requiring Cardene infusion before she was able to safely receive the IV tenecteplase dose. I reviewed the CTA head and neck and noncontrast CT head which was performed at OSH prior to her transfer. There was no acute LVO. Initial NIHSS of 14-patient was transported by ground ED to ED for stroke team evaluation. On arrival to our emergency room I examined the patient via telemetry robot with assistance of stroke team. NIHSS improved to 8-patient with right arm drift, expressive and receptive aphasia, and a visual field deficit. On further evaluation patient was noted to have left eye ptosis as well as a large left pupil that was 4 mm and nonreactive to light, compared to the right pupil which was 2 mm and briskly reactive to light. Although this would be concerning for intracranial compression, patient's mental status was alert and interactive and neurological exam is actually improved. Shewas aphasic and unable to tell us if this was a previous finding due to for example and eye surgery. Therefore we obtained a stat CT head to ensure there was no hemorrhagic transformation after tenecteplase. Stat CT head was reviewed by myself she has evidence of an old ischemic stroke with encephalomalacia in the left parietal occipital cortex. But there was no acute intracranial hemorrhage. Patient was taken to T2 ICU for continued post tenecteplase care-please see stroke order set Charlie Syed MD Neurocritical Care Attending Pager: [phone] [phone] Emergency department Note* Barrington Otero MD - 02/11/2024 11:08 PM EDT Emergency Department Encounter [facility] EMERGENCY DEPT Patient: Lucho Gillespie : 1940 Date of Evaluation: 02/11/2024 ED Supervising Physician: Barrington Otero MD I personally saw Lucho Gillespie and made/approved the management plan and take responsibility for the patient management. This will serve as my Supervisory note and shared attestation. I did perform a substantive portion of the visit including all aspects of the Medical Decision Making. HPI: In brief, Lucho Gillespie is a 83 y.o. female presents from outside hospital with concern for stroke. Per report, patient today presented to outside hospital [facility] with concern for aphasia, was treated with TNK, transferred for further neurologic evaluation including admission. Physical Exam: General: no apparent distress, nontoxic-appearing Eyes: Left pupil 4 mm, right pupil 2 mm HEENT: airway patent, mucous membranes moist Cardiovascular: regular rhythm, normal rate Respiratory: non-labored breathing, breath sounds clear, no wheezing crackles or rhonchi Extremities: no obvious deformity, non edematous Neurologic: 1A. Level of consciousness (0-3) = 0 1B. LOC Questions (0-2) = 1 1C. LOC Commands (0-2) = 0 2. Horizontal gaze (0-2) = 0 3. Visual rashid (0-3) = 1 4. Facial palsy (0-3) = 1 5. Motor arm Right (0-4) = 1 Left (0-4) = 0 6. Motor leg Right (0-4) = 0 Left (0-4) = 0 7. Limb ataxia (0-2) = 1 8. Sensory (0-2) = 1 9. Best Language = (0-3) = 1 10. Dysarthria (0-2) = 0 11. Extinction and inattention (0-2) = 1 Total NIHSS = 8 Brief ED course/MDM: An 83-year-old female, presents as above, transfer from outside hospital having received thrombolytics for an ischemic stroke, accepted by the stroke neurology service, on arrival her neurologic examas above, stroke neurology service present at bedside including attending Dr. Syed via telemedicine, recommend that patient be taken for CT head en route to neuro/ICU admission. CT head per radiologist interpretation, no ICH, old left occipital lobe infarct All diagnostic, treatment, and disposition decisions were made by myself in conjunction with the resident. I also supervised mayen portions of any procedures performed by the Resident. For all further details of the patient's emergency department visit, please see their documentation. (Comment: Please note this report has been produced using speech recognition software and may contain errors related to that system including errors in grammar, punctuation, and spelling, as well as words and phrases that may be inappropriate. If there are any questions or concerns please feel freeto contact the dictating provider for clarification.) Barrington Otero MD [facility] Barrington Otero MD 02/12/24 0721 documented in this [facility]04-08-2024 Physician Emergency department Note* Barrington Otero MD - 02/11/2024 11:08 PM EDT Emergency Department Encounter [facility] EMERGENCY DEPT Patient: Lucho Gillespie : 1940 Date of Evaluation: 02/11/2024 ED Supervising Physician: Barrington Otero MD I personally saw Lucho Gillespie and made/approved the management plan and take responsibility for the patient management. This will serve as my Supervisory note and shared attestation. I did perform a substantive portion of the visit including all aspects of the Medical Decision Making. HPI: In brief, Lucho Gillespie is a 83 y.o. female presents from outside hospital with concern for stroke. Per report, patient today presented to outside [facility] with concern for aphasia, was treated with TNK, transferred for further neurologic evaluation including admission. Physical Exam: General: no apparent distress, nontoxic-appearing Eyes: Left pupil 4 mm, right pupil 2 mm HEENT: airway patent, mucous membranes moist Cardiovascular: regular rhythm, normal rate Respiratory: non-labored breathing, breath sounds clear, no wheezing crackles or rhonchi Extremities: no obvious deformity, non edematous Neurologic: 1A. Level of consciousness (0-3) = 0 1B. LOC Questions (0-2) = 1 1C. LOC Commands (0-2) = 0 2. Horizontal gaze (0-2) = 0 3. Visual rashid (0-3) = 1 4. Facial palsy (0-3) = 1 5. Motor arm Right (0-4) = 1 Left (0-4) = 0 6. Motor leg Right (0-4) = 0 Left (0-4) = 0 7. Limb ataxia (0-2) = 1 8. Sensory (0-2) = 1 9. Best Language = (0-3) = 1 10. Dysarthria (0-2) = 0 11. Extinction and inattention (0-2) = 1 Total NIHSS = 8 Brief ED course/MDM: An 83-year-old female, presents as above, transfer from outside hospital having received thrombolytics for an ischemic stroke, accepted by the stroke neurology service, on arrival her neurologic examas above, stroke neurology service present at bedside including attending Dr. Syed via telemedicine, recommend that patient be taken for CT head en route to neuro/ICU admission. CT head per radiologist interpretation, no ICH, old left occipital lobe infarct All diagnostic, treatment, and disposition decisions were made by myself in conjunction with the resident. I also supervised mayen portions of any procedures performed by the Resident. For all further details of the patient's emergency department visit, please see their documentation. (Comment: Please note this report has been produced using speech recognition software and may contain errors related to that system including errors in grammar, punctuation, and spelling, as well as words and phrases that may be inappropriate. If there are any questions or concerns please feel freeto contact the dictating provider for clarification.) Barrington Otero MD [employer] Barrington Otero MD 02/12/24 0721 [place] Phone: [phone] History of Present illness Narrative* Benjamin Rudd DO - 01/01/2023 12:59 PM EST Referring Provider: Susie Hope APRN.C* Date: January 01, 2023 Chief Complaint: Established Patient Follow-Up (3 month follow up for BLE Edema. ) HISTORY OF PRESENT ILLNESS: Lucho Browne is a 82 year old female who presents for Established Patient Follow-Up (3 month follow up for BLE Edema. ). ALLERGIES No Known Allergies PAST MEDICAL HISTORY: PAST MEDICAL HISTORY Diagnosis Date Acute renal failure superimposed on stage 3b chronic kidney disease (HCC) Diabetes (HCC) type 2 Edema History of echocardiogram 11/2021 EF 60%, severe LVH Hypertension Obstructive sleep apnea treated with bilevel positive airway pressure (BiPAP) PAST SURGICAL HISTORY Procedure Laterality Date HYSTERECTOMY N/A 1989 REMOVAL GALLBLADDER N/A 2011 History reviewed. No pertinent family history. SOCIAL HISTORY: Tobacco Use: Never Alcohol Use: Not Currently Drug Use: Not Currently Employer And Job Title: None on file Years Of Education Completed: Not specified Marital Status: MEDICATIONS: Current Outpatient Medications Medication Sig acetaminophen 650 mg CR tablet Take 650 mg by mouth every 4 hours as needed. doxazosin (CARDURA) 4 mg tablet Take 1 tablet by mouth twice daily. spironolactone (ALDACTONE) 25 mg tablet Take 1 tablet by mouth every 48 hours. (Patient taking differently: Take 25 mg by mouth once daily.) torsemide (DEMADEX) 20 mg tablet Take 1 tablet by mouth once daily. cloNIDine HCl (CATAPRES) 0.1 mg tablet Take 1 tablet by mouth every 8 hours as needed (For systolic> 180mmHG). VELTASSA 8.4 gram pwpk MIX 1 PACKET IN WATER. DRINK BY MOUTH ONCE DAILY aspirin 325 mg tablet Take 325 mg by mouth once daily. carvedilol (COREG) 12.5 mg tablet Take 12.5 mg by mouth twice daily with meals. clopidogrel (PLAVIX) 75 mg tablet Take 1 tablet by mouth once daily. Cholecalciferol, Vitamin D3, 25 mcg (1,000 unit) cap Take 1,000 Units by mouth once daily. losartan (COZAAR) 50 mg tablet Take 1 tablet by mouth twice daily. busPIRone (BUSPAR) 10 mg tablet Take 10 mg by mouth twice daily. escitalopram oxalate (LEXAPRO) 20 mg tablet Take 20 mg by mouth once daily. ferrous sulfate 325 mg (65 mg iron) tablet Take 325 mg by mouth daily with breakfast. rosuvastatin (CRESTOR) 10 mg tablet Take 10 mg by mouth once daily. chlorthalidone (HYGROTON) 25 mg tablet Take 25 mg by mouth every 48 hours. (Patient not taking: Reported on 07/12/2022) sodium bicarbonate 650 mg tablet (Patient not taking: Reported on 07/12/2022) No current facility-administered medications for this visit. I have personally reviewed the patients past medical history including social, family, surgical, diagnostics, and medications. REVIEW OF SYSTEMS: Review of Systems Constitutional: Positive for fatigue. Negative for chills. Respiratory: Negative for chest tightness and shortness of breath. Cardiovascular: Negative for chest pain, palpitations and leg swelling. Neurological: Negative for dizziness, syncope, weakness and light-headedness. Hematological: Does not bruise/bleed easily. Psychiatric/Behavioral: Negative for confusion and hallucinations. Vitals: BP 132/60 (BP Site: Left Arm, BP Position: Sitting, BP Cuff Size: Regular Adult) Pulse 64 Ht 162.6 cm (5' 4) Wt 101.2 kg (223 lb) SpO2 97% BMI 38.28 kg/m PHYSICAL EXAMINATION: BP 132/60 (BP Site: Left Arm, BP Position: Sitting, BP Cuff Size: Regular Adult) Pulse 64 Ht 162.6 cm (5' 4) Wt 101.2 kg (223 lb) SpO2 97% BMI 38.28 kg/m Last 3 Encounter BP Readings: Date: BP: 07/12/2022 142/56 05/05/2022 116/40 04/27/2022 162/74 Last 3 Encounter Pulse Readings: Date: Pulse: 07/12/2022 57 05/05/2022 88 04/27/2022 60 Last 3 Encounter Wt Readings: Date: Wt: 07/12/2022 93 kg (205 lb) 05/05/2022 104.6 kg (230 lb 11.2 oz) 04/27/2022 96.9 kg (213 lb 9.6 oz) Physical Exam Vitals reviewed. Constitutional: General: She is not in acute distress. Cardiovascular: Rate and Rhythm: Normal rate and regular rhythm. Pulses: Carotid pulses are 2+ on the right side and 2+ on the left side. Radial pulses are 2+ on the right side and 2+ on the left side. Femoral pulses are 2+ on the right side and 2+ on the left side. Popliteal pulses are 2+ on the right side and 2+ on the left side. Dorsalis pedis pulses are 2+ on the right side and 2+ on the left side. Posterior tibial pulses are 2+ on the right side and 2+ on the left side. Heart sounds: Murmur heard. Systolic murmur is present with a grade of 2/6. Comments: PMI not displaced. 2nd heart sound loud. Pulmonary: Effort: Pulmonary effort is normal. Breath sounds: Normal breath sounds. Abdominal: General: Abdomen is flat. Bowel sounds are normal. Palpations: Abdomen is soft. Tenderness: There is no abdominal tenderness. Musculoskeletal: Right lower leg: No edema. Left lower leg: No edema. Skin: General: Skin is warm. Findings: No rash or wound. Neurological: Mental Status: She is alert and oriented to person, place, and time. Coordination: Coordination is intact. LABS: Glucose (mg/dL) Date Value 05/12/2022 196 12/14/2021 115 Potassium (mmol/L) Date Value 05/12/2022 4.1 12/14/2021 4.0 Sodium (mmol/L) Date Value 05/12/2022 139 12/14/2021 142 Chloride (mmol/L) Date Value 05/12/2022 109 12/14/2021 104 CO2 (mmol/L) Date Value 05/12/2022 26 12/14/2021 27 Creatinine (mg/dL) Date Value 05/12/2022 1.23 12/14/2021 1.27 BUN (mg/dL) Date Value 05/12/2022 45 12/14/2021 45 Anion Gap (mmol/L) Date Value 05/12/2022 4 12/14/2021 11 Calcium (mg/dL) Date Value 12/14/2021 9.0 Calcium, Total (mg/dL) Date Value 05/12/2022 8.0 Albumin (g/dL) Date Value 12/14/2021 3.3 Hemoglobin (g/dL) Date Value 05/11/2022 7.3 12/14/2021 9.8 Hematocrit (%) Date Value 05/11/2022 22.0 12/14/2021 30.9 WBC (k/uL) Date Value 05/10/2022 5.45 12/14/2021 4.67 No results found for: CHOL, HDL, LDL, TG EKG: DIAGNOSTIC TEST RESULTS: No results found for this or any previous visit (from the past 24 hour(s)). ASSESSMENT/PLAN: 1. Localized edema - ICD9: 782.3, ICD10: R60.0 (primary diagnosis) Patient did not complain of any swelling or edema at this visit. 2. Essential hypertension, benign - ICD9: 401.1, ICD10: I10 Patient's blood pressure in the office today was recorded as 132/60. Target systolic BP 140 or lessand diastolic BP 90 or less. Continue current medications. 3. Chronic kidney disease, stage IV (severe) ([facility]) - ICD9: 585.4, ICD10: N18.4 In pictorial form we andrzej a graph of kidney function. The importance of this graph is to highlight how diuretic therapy can affect the kidney function. The higher the number of the creatinine level the closer they get to kidney failure and possible dialysis. Every time we have to change the diuretic therapy, the kidney function will be altered. Therefore, a close follow-up with serial renal profiles is required. The patient has been asked to maintain this graph with labeling the separate lab results so they can follow the kidney function. 4. Type 2 diabetes mellitus without complication, without long-term current use of insulin ([facility]) - ICD9: 250.00, ICD10: E11.9 Reviewed increased cardiovascular risk in patients with diabetes including stroke and heart attack,as well as blindness, kidney failure, and neuropathy. Recommend yearly eye exams, as well as routine labs to monitor kidney function. 5. Obstructive sleep apnea treated with bilevel positive airway pressure (BiPAP) - ICD9: 327.23, ICD10: G47.33 Chronic condition of patient. Patient uses CPAP every night. 6. History of echocardiogram - ICD9: V15.89, ICD10: Z92.89 Echo was done 11/2021 and showed EF 60%, severe LVH 8. Patient has a history of heart failure preserved ejection fraction. 7. Non-smoker - ICD9: V49.89, ICD10: Z78.9 Patient is a non-smoker. No signs of swelling noted at this time due to be stable. 8. PAD. -Carotid Bruits was found on examination. Fide Martini MA , scribing for Dr. Benjamin Rudd, was present in the room during the examination Follow up in: [address] Rudd Prior to entering the room, I reviewed the last progress note including the diagnosis and plan of action. When available, I then reviewed the last heart catheterization, stress test, echocardiogram and EKG. I proceeded to review the medial therapy and any side effects the patient may have had in the past. I was able to look at the last several EKGs. A new EKG was performed today and an interetation was performed. I reviewed its interpretation with the family and compared it to the previous EKGsthat we have in the medical records. Changes were described to the patient. In a pictorial format; I described the MN and QRS intervals. This was to show the effects of antiarrhythmic therapy on the e lectrical system. I was able to look at the past several EKG's. A new EKG was performed today and interpretation was noted. I reviewed this interpretation with the patient, and the family when available, and compared it to the previous EKG's that we have in the medical record. Since my office visit was carried out with a scribe, while in the exam room I was able to devote one hundred percent of my time in [id number] conversation with the patient. I answered all the questions and explained the diagnosis of stable hypertension and no evidence of congestive heart failure on today's visit. Greater that 51% of my time was spent with [id number] conversation with the patient. I have discussed the recommended treatment, alternative therapies and other options in detail. I've discussed the best benefit and side effects of these recommended treatments. I've attempted to answer all the questions to the patient's satisfaction and understanding. With approval, we would recommend an pursuethe current therapy such as no change. After leaving the exam room, I went back into the patient's chart and coordinated care with my nurse ordering the proper testing and medicinal changes. Letter was performed with voice recognition algorithms and sent to the referring team. The chart was completed. Including the pre-exam, exam and post- exam, the total time spent in the patient's management was greater than 15 minutes I, Dr. Benjamin Rudd, have reviewed and agree with the information in the medical record. Benjamin Rudd DO documented in this encounterOhio[facility] History of Present illness Narrative* Susie Hope APRN.ECONOMIC DEVELOPMENT DIRECTOR - 07/12/2022 2:17 PM EDT Referring Provider: Susie Hope APRN.C* Date: July 12, 2022 Chief Complaint: Hospital follow-up after pseudoaneurysm and UTI HISTORY OF PRESENT ILLNESS: Lucho Browne is a 81 year old, established female who presents for hospital follow-up after pseudoaneurysm and UTI. Patient was discharged from [facility]. 05/04/2022 patient had underwent a right arterial stenosis with stent placement by Dr.Suda Koehler. Thenext day the daughter patient into [facility] [place] after finding her mom to be endorsing increased fusion, weakness and on the floor at her home. CT of the head was negative. CT of abdomen showed patient had a large peritoneal hematoma extendingthe right groin. She was transferred sound guided thrombin injected of right femoral pseudoaneurysm ALLERGIES No Known Allergies PAST MEDICAL HISTORY: PAST MEDICAL HISTORY Diagnosis Date Acute renal failure superimposed on stage 3b chronic kidney disease (HCC) Diabetes (HCC) type 2 Edema History of echocardiogram 11/2021 ef60, severe lvh Hypertension Obstructive sleep apnea treated with bilevel positive airway pressure (BiPAP) PAST SURGICAL HISTORY Procedure Laterality Date HYSTERECTOMY N/A 1989 REMOVAL GALLBLADDER N/A 2011 History reviewed. No pertinent family history. SOCIAL HISTORY: Tobacco Use: Never Alcohol Use: Not Currently Drug Use: Not Currently Employer And Job Title: None on file Years Of Education Completed: Not specified Marital Status: MEDICATIONS: Current Outpatient Medications Medication Sig acetaminophen 650 mg CR tablet Take 650 mg by mouth every 4 hours as needed. doxazosin (CARDURA) 4 mg tablet Take 1 tablet by mouth twice daily. spironolactone (ALDACTONE) 25 mg tablet Take 1 tablet by mouth every 48 hours. (Patient taking differently: Take 25 mg by mouth once daily.) torsemide (DEMADEX) 20 mg tablet Take 1 tablet by mouth once daily. cloNIDine HCl (CATAPRES) 0.1 mg tablet Take 1 tablet by mouth every 8 hours as needed (For systolic> 180mmHG). VELTASSA 8.4 gram pwpk MIX 1 PACKET IN WATER. DRINK BY MOUTH ONCE DAILY aspirin 325 mg tablet Take 325 mg by mouth once daily. carvedilol (COREG) 12.5 mg tablet Take 12.5 mg by mouth twice daily with meals. clopidogrel (PLAVIX) 75 mg tablet Take 1 tablet by mouth once daily. Cholecalciferol, Vitamin D3, 25 mcg (1,000 unit) cap Take 1,000 Units by mouth once daily. losartan (COZAAR) 50 mg tablet Take 1 tablet by mouth twice daily. busPIRone (BUSPAR) 10 mg tablet Take 10 mg by mouth twice daily. escitalopram oxalate (LEXAPRO) 20 mg tablet Take 20 mg by mouth once daily. ferrous sulfate 325 mg (65 mg iron) tablet Take 325 mg by mouth daily with breakfast. rosuvastatin (CRESTOR) 10 mg tablet Take 10 mg by mouth once daily. chlorthalidone (HYGROTON) 25 mg tablet Take 25 mg by mouth every 48 hours. (Patient not taking: Reported on 07/12/2022) sodium bicarbonate 650 mg tablet (Patient not taking: Reported on 07/12/2022) No current facility-administered medications for this visit. I have personally reviewed the patients past medical history including social, family, surgical, diagnostics, and medications./AB REVIEW OF SYSTEMS: Review of Systems Constitutional: Negative for chills and fatigue. Respiratory: Negative for chest tightness and shortness of breath. Cardiovascular: Negative for chest pain, palpitations and leg swelling. Neurological: Negative for dizziness, syncope, weakness and light-headedness. Hematological: Bruises/bleeds easily. Psychiatric/Behavioral: Negative for confusion and hallucinations. Vitals: BP 142/56 (BP Site: Left Arm, BP Position: Sitting, BP Cuff Size: Large Adult) Pulse (!) 57 Ht 160 cm (5' 3) Wt 93 kg (205 lb) BMI 36.31 kg/m PHYSICAL EXAMINATION: BP 142/56 (BP Site: Left Arm, BP Position: Sitting, BP Cuff Size: Large Adult) Pulse (!) 57 Ht 160 cm (5' 3) Wt 93 kg (205 lb) BMI 36.31 kg/m Last 3 Encounter BP Readings: Date: BP: 05/05/2022 116/40 04/27/2022 162/74 03/06/2022 114/58 Last 3 Encounter Pulse Readings: Date: Pulse: 05/05/2022 88 04/27/2022 60 03/06/2022 44 Last 3 Encounter Wt Readings: Date: Wt: 05/05/2022 104.6 kg (230 lb 11.2 oz) 04/27/2022 96.9 kg (213 lb 9.6 oz) 03/06/2022 88.5 kg (195 lb) Physical Exam Vitals and nursing note reviewed. Constitutional: General: She is not in acute distress. Appearance: She is obese. She is not diaphoretic. HENT: Head: Normocephalic. Eyes: Extraocular Movements: Extraocular movements intact. Cardiovascular: Rate and Rhythm: Normal rate and regular rhythm. Heart sounds: Normal heart sounds. No murmur heard. Pulmonary: Breath sounds: Normal breath sounds. No wheezing or rhonchi. Abdominal: General: Bowel sounds are normal. There is distension. Palpations: Abdomen is soft. Tenderness: There is no abdominal tenderness. There is no guarding. Musculoskeletal: Cervical back: Neck supple. Right lower leg: Edema present. Left lower leg: Edema present. Skin: General: Skin is warm. Coloration: Skin is not pale. Findings: No bruising or rash. Neurological: General: No focal deficit present. Mental Status: She is alert and oriented to person, place, and time. Motor: No weakness. Gait: Gait normal. Psychiatric: Mood and Affect: Mood normal. Behavior: Behavior normal. Thought Content: Thought content normal. Judgment: Judgment normal. LABS: Glucose (mg/dL) Date Value 05/12/2022 196 12/14/2021 115 Potassium (mmol/L) Date Value 05/12/2022 4.1 12/14/2021 4.0 Sodium (mmol/L) Date Value 05/12/2022 139 12/14/2021 142 Chloride (mmol/L) Date Value 05/12/2022 109 12/14/2021 104 CO2 (mmol/L) Date Value 05/12/2022 26 12/14/2021 27 Creatinine (mg/dL) Date Value 05/12/2022 1.23 12/14/2021 1.27 BUN (mg/dL) Date Value 05/12/2022 45 12/14/2021 45 Anion Gap (mmol/L) Date Value 05/12/2022 4 12/14/2021 11 Calcium (mg/dL) Date Value 12/14/2021 9.0 Calcium, Total (mg/dL) Date Value 05/12/2022 8.0 Albumin (g/dL) Date Value 12/14/2021 3.3 Hemoglobin (g/dL) Date Value 05/11/2022 7.3 12/14/2021 9.8 Hematocrit (%) Date Value 05/11/2022 22.0 12/14/2021 30.9 WBC (k/uL) Date Value 05/10/2022 5.45 12/14/2021 4.67 No results found for: CHOL, HDL, LDL, TG EKG: Sinus bradycardia with sinus arrhythmia, nonspecific T abnormality, abnormal; HR 57 DIAGNOSTIC RESULTS: ASSESSMENT/PLAN: 1. Hospital discharge follow-up - ICD9: V67.59, ICD10: Z09 (primary diagnosis) -Patient was [facility] to [facility] -Patient had underwent a procedure of radial arterial stenosis without placement on 05/04/[address] Falcon. She developed locations with confusion, weakness and collapse. She was found to have a large pseudoaneurysm in her right artery. She was also treated for a UTI. 2. Pseudoaneurysm of femoral artery (HCC) - ICD9: 442.3, ICD10: I72.4 -Abdominal CT, from 05/05/2022, the CT of the abdomen showed a large peritoneal hematoma extending tothe right groin. -On 05/06/2022, patient underwent an Ultrasound-guided thrombin injection of right femoral pseudoaneurysm under Dr Falcon's care. -Patient reports she is doing well since coming home. She is still in rehab to help here get stronger. 3. Hypertension, unspecified type - ICD9: 401.9, ICD10: I10 -Today's blood pressure is 142/56 -Goal blood pressure < 140/90 -Continue current meds. Patient was educated on the need to exercise and following a low salt diet. 4. Bilateral lower extremity edema - ICD9: 782.3, ICD10: R60.0 -BLE edema is well controlled with trace to mild bilateral lower extremity edema -Continue torsemide 20 mg daily 5. History of echocardiogram - ICD9: V15.89, ICD10: Z92.89 -History of echocardiogram from 10/31/2021 -Echocardiogram demonstrates an EF of 60% with severe LVH 6. History of diabetes mellitus - ICD9: V12.29, ICD10: Z86.39 -Reviewed with patient there increased cardiovascular risk, often seen with diabetic patients including stroke and heart attacks. Also at risk for blindness, kidney failure and neuropathy. Recommend yearly eye exam as well as routine labs to monitor kidney function. -Per lab work, HA1C from 05/05/2022 is 5.0 7. Never smoked cigarettes - ICD9: V49.89, ICD10: Z78.9 Susie Hope APRN.CNP Follow up in: 3 months - BLE edema Greater than 50% of this > 15 minute visit was spent face to face discussing current diagnosis of hospital follow-up secondary to right femoral pseudoaneurysm and treatment plan consisting of continue current medicinal regimen and therapy. Follow-up as documented above. I have discussed the recommended treatment, alternative treatments and other treatment options in detail. I have discussed the risks, benefits and side effect of the recommended treatment. I have attempted to answer all their questions to their satisfaction and understanding of the explanation has been voiced. With approval we will pursue the recommended treatment. During this office visit I reviewed the patients previous Cardiac testing and procedures results and reviewed the results with the patient. I, Susie Hope CNP have reviewed and agree with the information in the medical record transcribed by Cayden Echols MA. Susie Hope APRN.DOMINIQUE This patient note was partially generated from using the [employer] voice recognition system. There maybe some incorrect words, spelling, and punctuation that were not noted in checking the note prior to saving documented in this encounterOhiohealth07-08-2022 NoteHNO ID: [id number] Author: DUDLEY Go Service: Care Management Author Type: Set Key Driver Type: Care Mgt Progress Note Filed: 05/12/2022 5:06 PM Note Text: CHIQUIS spoke to Dr. Medina, patient will discharge today to [facility]. CHIQUIS let Lulu at [facility] know this and they are able to accept. CHIQUIS spoke to patient's daughter Marixa and updated her on discharge today to [facility] and she is agreeable. She will transport patient herself. Covid test ordered. CHIQUIS let Lulu know that patient will probably leave hospital around 7pm. Fax cover sheet with N2N phone number on chart.[facility] 05-12-2022 NoteHNO ID: [id number] Author: Lucy Sneed MD Service: Nephrology Author Type: Physician Type: Progress Notes Filed: 05/12/2022 3:34 PM Note Text: CONSULT PROGRESS NOTE NEPHROLOGY SERVICE SERVICE DATE: 05/12/2022 SERVICE TIME: 3:30 PM Subjective INTERVAL HISTORY: Comfortable. She is laying in bed. Appears weak but not in distress. MEDICATIONS: Current Facility-Administered Medications Medication Dose Route Frequency - escitalopram oxalate 20 mg tab(s) (LEXAPRO) 20 mg ORAL DAILY - ferrous sulfate 325 mg tab(s) 325 mg ORAL DAILY WITH BREAKFAST - rosuvastatin 10 mg tab(s) (CRESTOR) 10 mg ORAL DAILY - busPIRone 10 mg tab(s) (BUSPAR) 10 mg ORAL BID - losartan 50 mg tab(s) (COZAAR) 50 mg ORAL BID - carvedilol 12.5 mg tab(s) (COREG) 12.5 mg ORAL BID w MEALS - hydrALAZINE 10 mg injection (APRESOLINE) 10 mg INTRAVENOUS q 6 H PRN - cefTRIAXone 1 g in D5W 100 mL Vial-Bag (ROCEPHIN) 1 g INTRAVENOUS q 24 H - NaCl 0.9% iv flush bag 20 mL INTRAVENOUS PRN - torsemide 20 mg tab(s) (DEMADEX) 20 mg ORAL DAILY - spironolactone 25 mg tab(s) (ALDACTONE) 25 mg ORAL q 48 HR - doxazosin 4 mg tab(s) (CARDURA) 4 mg ORAL BID - dextrose 5% in NaCl 0.9% iv infusion 75 mL/hr INTRAVENOUS CONTINUOUS - cloNIDine HCl 0.1 mg tab(s) (CATAPRES) 0.1 mg ORAL q 8 H PRN - cholecalciferol 1,000 Units tab(s) (VITAMIN D3) 1,000 Units ORAL DAILY Objective PHYSICAL EXAM: BP (!) 177/33 Pulse 88 Temp 37.8 ?C (100 ?F) (Oral) Resp 20 Ht 160 cm (5' 3) Wt 104.6 kg (230 lb 11.2 oz) SpO2 93% BMI 40.87 kg/m? Intake/Output Summary (Last 24 hours) at 05/12/2022 1530 Last data filed at 05/12/2022 1522 Gross per 24 hour Intake 1318 ml Output 3750 ml Net -2432 ml General: Comfortable. Does not appear to be in acute distress. Resting in bed. Neck: JVP not observed. Negative hepatojugular reflex. Cardiovascular: S1 and S2 heard. No friction rub. Lungs: Clear anteriorly bilaterally and at the bases Abdomen: Soft and nontender. Lymphatic: No peripheral edema Musculoskeletal: No obvious joint swelling or redness. Neurological: Alert and oriented x3. No focal deficits. DATA: Diagnostic tests reviewed for today's visit: Most recent labs and imaging results. Recent Labs 05/12/22 1157 05/10/22 0553 05/08/22 0542 05/06/22 0647 NA 139 144 139 139 K 4.1 3.9 4.3 4.7 CHLOR 109* 111* 107 110* CO2 26 27 27 24 BUN 45* 54* 64* 54* CREAT 1.23* 1.35* 1.83* 1.55* GLUC 196* 112* 114* 124* ANION 4* 6 5 5 CA 8.0* 8.1* 8.2* 8.3* Recent Labs 05/11/22 0610 05/10/22 0553 05/09/22 1119 05/08/22 0542 WBC -- 5.45 6.26 7.25 HB 7.3* 7.2* 6.6* 7.1* HCT 22.0* 21.4* 19.8* 21.1* PLT -- 80* 82* 74* Recent Labs 05/11/22 0610 05/04/22 0734 12/14/21 1536 DAGO -- -- 166.6 TRANSFERSAT -- -- 65* B12 -- -- 843 FOLATE -- -- 4.5* HB 7.3* < > 9.8* < > = values in this interval not displayed. Recent Labs 05/12/22 1157 05/04/22 0734 12/14/21 1536 PTH -- -- 63 CA 8.0* < > 9.0 P -- -- 2.8 ALB -- -- 3.3* < > = values in this interval not displayed. No results for input(s): BUNRAT, BUNPR, BUNPO in the last 168 hours. No results for input(s): HEPSABQ in the last 1440 hours. Invalid input(s): HEPSABG Assessment/Plan 81 year old female who is well-known to me on an outpatient basis. I am treating her for hypertensive nephropathy in the setting of stage IV kidney disease. She had a lot of trouble controlling blood pressure despite multiple medications on maximum doses including 2 diuretics. Renal artery Doppler showed right renal artery stenosis. She was referred to vascular surgery, Dr. Hanna. She received a right renal artery stenting which was complicated by right femoral pseudoaneurysm. She was admitted for management of the same. She received a thrombin injection and this has resolved. Kidney function remains at baseline if not better. She is hypertensive. Nephrology was consulted mainly to adjust blood pressure medications. She is also being treated for a polymicrobial UTI with IV ceftriaxone. ? 1. Uncontrolled hypertension 2. Renal artery stenosis status post stenting 3. Post procedure right femoral pseudoaneurysm formation status post thrombin injection 4. UTI on ceftriaxone 5. Frequent hyperkalemia as outpatient PLAN 1. Kidney function amply acceptable. 2. Continue bp medications as follows: ? Coreg 12.5 mg oral twice a day ? Cardura 4 mg oral twice a day ? Torsemide 20 mg oral daily ? Spironolactone 25 mg oral every other day. ?Clonidine 0.1 mg every 8 hours as needed for systolic more than 180 mmHg. 3.Allow time for medications to reach therapeutic level in her system 4.Biochemistries good - no hyperkalemia to be worried about yet 5.Weak and lethargic - PT/OT 6.Anemia being monitored. Will give prorit 10,000 units. Transfuse for HB< 7g/dl Thank you. SIGNATURE: Lucy Sneed MD PATIENT NAME: Lucho MILLAN (more content not included)...[facility]07-07-2022 NoteHNO ID: [id number] Author: Pascual Medina MD Service: General Internal Medicine Author Type: Physician Type: Progress Notes Filed: 05/12/2022 9:50 AM Note Text: INPATIENT PROGRESS NOTE SERVICE DATE: 05/11/2022 SERVICE TIME: 6:31 PM PRIMARY SERVICE: Hospitalist CHIEF COMPLAINT: No chief complaint on file. INTERVAL HPI: No complaint. No chest pain, dyspnea, nausea, or vomiting. BP 158/41 Pulse 56 Temp (Src) 99 (Oral) Resp 20 Ht 5' 3 (1.60m) Wt 230 lb 11.2 oz (104.6kg) SpO2 92% BMI 40.88 kg/(m2). O2 Therapy: Room Air PHYSICAL EXAM: General: Sitting up in bed, comfortable, nontoxic. Neurologic/psychiatric: Alert, normal affect, cranial nerves intact, mentating well HEENT: No trauma, extraocular movements are intact, moist mucous membranes, no scleral icterus Neck: Supple Respiratory: Normal breathing effort, no audible wheeze, no cough, no tachypnea Cardiovascular: Sinus on telemetry Gastrointestinal: No obvious significant distention, no vomiting, no hematemesis, no diarrhea Current Facility-Administered Medications Medication Dose Route Frequency - escitalopram oxalate 20 mg tab(s) (LEXAPRO) 20 mg ORAL DAILY - ferrous sulfate 325 mg tab(s) 325 mg ORAL DAILY WITH BREAKFAST - rosuvastatin 10 mg tab(s) (CRESTOR) 10 mg ORAL DAILY - busPIRone 10 mg tab(s) (BUSPAR) 10 mg ORAL BID - Cholecalciferol (Vitamin D3) 1,000 Units cap(s) 1,000 Units ORAL DAILY - losartan 50 mg tab(s) (COZAAR) 50 mg ORAL BID - carvedilol 12.5 mg tab(s) (COREG) 12.5 mg ORAL BID w MEALS - hydrALAZINE 10 mg injection (APRESOLINE) 10 mg INTRAVENOUS q 6 H PRN - cefTRIAXone 1 g in D5W 100 mL Vial-Bag (ROCEPHIN) 1 g INTRAVENOUS q 24 H - NaCl 0.9% iv flush bag 20 mL INTRAVENOUS PRN - torsemide 20 mg tab(s) (DEMADEX) 20 mg ORAL DAILY - spironolactone 25 mg tab(s) (ALDACTONE) 25 mg ORAL q 48 HR - doxazosin 4 mg tab(s) (CARDURA) 4 mg ORAL BID - dextrose 5% in NaCl 0.9% iv infusion 75 mL/hr INTRAVENOUS CONTINUOUS DATA: Diagnostic tests reviewed for today's visit: Most recent labs and imaging results. Recent Results (from the past 24 hour(s)) PHYSICIAN CONSULT (AK,AV,EU,FV,HL,HANH,MM,MR,SP) Collection Time: 05/10/22 7:45 PM Prabhu Sneed MD 05/11/2022 1:47 PM CONSULT: NEPHROLOGY SERVICE SERVICE DATE: 05/11/2022 SERVICE TIME: 1:32 PM REASON FOR CONSULT: I am asked to see this patient in consultation for my opinion regarding blood pressure management. My recommendations will be communicated by way of shared medical record. REQUESTING PHYSICIAN: PRIMARY CARE PHYSICIAN: Avelino Deleon MD Subjective CHIEF COMPLAINT: Hypertension HPI: Ms. Browne is a 81 year old female who is very well-known to me on an outpatient basis. I am seeing her mainly for management of chronic kidney disease in the setting of very difficult to control hypertensive nephropathy. She also has diastolic heart failure, severe LISA. Her creatinine has been fluctuating lately around 2 to 2.4 mg/dL. She has a GFR in stage IV kidney disease. Her blood pressure was getting 1 more difficult to control and eventually her renal artery Doppler did show right renal artery stenosis. She was referred to vascular surgery, Dr. Hanna, and after coordinated care and discussion we have decided to proceed cautiously with right renal artery stenosis in order to better control her blood pressure. This decision was made because she was maxed out on several medications including at least 2 diuretics such as torsemide and spironolactone. The patient eventually did receive right renal artery stenting but unfortunately developed right femoral pseudoaneurysm. She was then admitted to the hospital for management of the same. She has been seen by Dr. Hanna who has treated her with thrombin injection. Since then the hematoma has resolved. Her kidney function actually is better than her baseline. Creatinine is right now at 1.35 mg/dL with GFR 40. Her potassium level is 3.9 [she usually struggles with hyperkalemia secondary to needing spironolactone and ARB]. She takes Veltassa at home on a regular basis to control potassium. Nephrology was consulted to help manage hypertension and to watch her kidney function. Of note during the course of this hospitalization the patient was found to have a urinary tract infection which seems to be polymicrobial. She has been treated with IV ceftriaxone. She has been having waxing and waning mental status. Currently she is resting comfortably in bed. No acute complaints. PAST MEDICAL HISTORY Diagnosis Date - Acute renal failure superimposed on stage 3b chronic kidney disease (HCC) - Diabetes (HCC) type 2 - Edema - History of echocardiogram 11/2021 ef60, severe lvh - Hypertension - Obstructive sleep apnea treated with bilevel positive airway pressure (BiPAP) PAST SURGICAL HISTORY Procedure Laterality Date - HYSTERECTOMY N/A 1 (more content not included)...[facility] 05-11-2022 NoteHNO ID: [id number] Author: DUDLEY Go Service: Care Management Author Type: Set Key Driver Type: Care Mgt Progress Note Filed: 05/11/2022 8:05 AM Note Text: Pt's family would like her to go to [facility] [place]. sent referral on 05/09/22 and [facility] can accept pt at discharge. SW to continue to follow for dc planning needs.[facility]07-06-2022 NoteHNO ID: [id number] Author: Pascual Medina MD Service: General Internal Medicine Author Type: Physician Type: Progress Notes Filed: 05/10/2022 7:49 PM Note Text: INPATIENT PROGRESS NOTE SERVICE DATE: 05/10/2022 SERVICE TIME: 7:45 PM PRIMARY SERVICE: Hospitalist CHIEF COMPLAINT: No chief complaint on file. INTERVAL HPI: No complaint. No chest pain, dyspnea, nausea, or vomiting. Her son, Jose C, is at the bedside. BP 160/74 Pulse 53 Temp (Src) 100 (Oral) Resp 20 Ht 5' 3 (1.60m) Wt 227 lb (103.0kg) SpO2 94% BMI 40.22 kg/(m2). O2 Therapy: Room Air PHYSICAL EXAM: General: Sitting up in bed, comfortable, nontoxic. Neurologic/psychiatric: Alert, normal affect, cranial nerves intact, answering questions appropriately HEENT: No trauma, extraocular movements are intact, moist mucous membranes, no scleral icterus Neck: Supple Respiratory: Normal breathing effort, no audible wheeze, no cough, no tachypnea Cardiovascular: Sinus on telemetry Gastrointestinal: No obvious significant distention, no vomiting, no hematemesis, no diarrhea Current Facility-Administered Medications Medication Dose Route Frequency - escitalopram oxalate 20 mg tab(s) (LEXAPRO) 20 mg ORAL DAILY - ferrous sulfate 325 mg tab(s) 325 mg ORAL DAILY WITH BREAKFAST - rosuvastatin 10 mg tab(s) (CRESTOR) 10 mg ORAL DAILY - busPIRone 10 mg tab(s) (BUSPAR) 10 mg ORAL BID - Cholecalciferol (Vitamin D3) 1,000 Units cap(s) 1,000 Units ORAL DAILY - losartan 50 mg tab(s) (COZAAR) 50 mg ORAL BID - carvedilol 12.5 mg tab(s) (COREG) 12.5 mg ORAL BID w MEALS - sodium bicarbonate 650 mg tab(s) 650 mg ORAL DAILY - doxazosin 4 mg tab(s) (CARDURA) 4 mg ORAL AT BEDTIME - hydrALAZINE 10 mg injection (APRESOLINE) 10 mg INTRAVENOUS q 6 H PRN - hydrALAZINE 25 mg tab(s) (APRESOLINE) 25 mg ORAL q 8 H - NaCl 0.9% iv infusion 50 mL/hr INTRAVENOUS CONTINUOUS - cefTRIAXone 1 g in D5W 100 mL Vial-Bag (ROCEPHIN) 1 g INTRAVENOUS q 24 H - NaCl 0.9% iv flush bag 20 mL INTRAVENOUS PRN DATA: Diagnostic tests reviewed for today's visit: Most recent labs and imaging results. Recent Results (from the past 24 hour(s)) CBC Collection Time: 05/10/22 5:53 AM Result Value Ref Range WBC 5.45 3.70 - 11.00 k/uL RBC 2.36 (L) 3.90 - 5.20 m/uL Hemoglobin 7.2 (L) 11.5 - 15.5 g/dL Hematocrit 21.4 (L) 36.0 - 46.0 % MCV 90.7 80.0 - 100.0 fL MCH 30.5 26.0 - 34.0 pg MCHC 33.6 30.5 - 36.0 g/dL RDW-CV 13.3 11.5 - 15.0 % Platelet Count 80 (L) 150 - 400 k/uL MPV 12.8 (H) 9.0 - 12.7 fL Absolute nRBC <0.01 <0.01 k/uL BASIC METABOLIC PNL Collection Time: 05/10/22 5:53 AM Result Value Ref Range Glucose 112 (H) 70 - 100 mg/dL BUN 54 (H) 7 - 26 mg/dL Creatinine 1.35 (H) 0.51 - 0.95 mg/dL Sodium 144 136 - 145 mmol/L Potassium 3.9 3.5 - 5.1 mmol/L Chloride 111 (H) 98 - 107 mmol/L CO2 27 21 - 32 mmol/L Anion Gap 6 5 - 16 mmol/L Calcium, Total 8.1 (L) 8.5 - 10.5 mg/dL Estimated Glomerular Filtration Rate 40 (L) >=60 mL/min/1.73m? ASSESSMENT AND PLAN: Principal Problem: Pseudoaneurysm of femoral artery (HCC) POA: Yes Assessment AND Plan: Patient with pseudoaneurysm status post thrombin injection. Patient also with hypertension continue aggressive blood pressure management with home medications addition of oral hydralazine and as needed hydralazine intravenous . ? Metabolic encephalopathy: Patient found to have urinary tract infection currently initiated on Rocephin will await urine culture 81-year-old female history of CKD stage III, diabetes, edema, hypertension, obstructive sleep apnea. Patient presents to the hospital with right groin pseudoaneurysm. Patient recently had procedure and was recently discharged 05/04 for right-sided renal artery stenosis status post stenting. Patient underwent ultrasound confirming pseudoaneurysm status post thrombin injection yesterday unfortunately still area and patient had sandbags placed yesterday. Patient will be going for repeat thrombin injection today. Patient's blood pressure has been difficult to control patient did make some improvement yesterday with IV hydralazine. Patient will be started on oral hydralazine with IV hydralazine as needed for breakthrough hypertension. We will need to maintain tight blood pressure control in setting of pseudoaneurysm formation. Patient will have close monitoring of hemoglobin we will transfuse if hemoglobin goes below 7. Patient will have a.m. labs performed on 05/08 05/08 patient today is more confused than yesterday. Yesterday when I spoke with patient she was alert and oriented x3. Patient today is alert x1. Patient is at risk for infection developing. We will obtain blood culture arterial blood gas ammonia urinalysis procalcitonin. I have very low suspicion of stroke given no focal deficits this appears to be more delirium present. Patient is going for repeat vascular ultrasound to evaluate pseudoaneurysm. Patient's he (more content not included)...[facility]07-05-2022 NoteHNO ID: [id number] Author: Trinh Roth RN Service: Care Management Author Type: Registered Nurse Type: Nicolasa Mgt Initial Assessment Filed: 05/09/2022 3:27 PM Note Text: CARE MANAGEMENT: ASSESSMENT AND DISCHARGE PLAN SERVICE DATE: May 09, 2022 SERVICE TIME: 1525 PRIMARY CARE PHYSICIAN: Avelino Deleon MD Primary Contact: Extended Emergency Contact Information Primary Emergency Contact: Marixa Koroma Mobile Relation: Daughter ADMISSION STATUS: Inpatient Insurance Provider: MEDICARE A AND B NEEDS PRIOR TO DISCHARGE Needs Prior to Discharge: None POTENTIAL TRANSITION PLANS To Be Determined Based on clinical judgement, Care Management will address the following needs: Functional Patient's perception of need for this admission: None ADVANCE DIRECTIVES Current Advance Directive: None MS/BEHAVIOR Baseline Mental Status Prior to this Illness what was the patient's Baseline Mental Status?: Alert AND Oriented Prior to this illness, has anyone described the patient having any of the following behaviors?: Not Applicable Relationship of the informant to the patient:: Other: See Comment Name of Informant: : Sister Elba READMISSION Last Discharge Date: 05/04/22 Is this Within the Past 30 days? From what level of care did patient present?: Home Last discharge within 30 days: Yes PATIENT SCREEN Under the care of a PCP?: Yes, External Provider Provider Name: Dr. Avelino Deleon Does the patient have transportation upon discharge?: Yes Use of any community resources?: No Does the patient have a stable and supportive living arrangement and home setting?: Yes Are there any potential risks or gaps identified by risk/functional/fall,etc. scores in the EMR?: Yes Any potential risks related to substance abuse and/or behavioral health?: No Based on clinical judgement, Care Management will address the following needs: Functional CAREGIVER ASSESSMENT Caregiver is ready, willing and able to meet the patient's needs as recommended by the inter-professional team:: Other: See Comment Patient's transition needs and plan for meeting these needs: Pt lives alone, no caregiver available. FUNCTIONAL How do you manage to accomplish the following: Independent: Ambulation;Bathe/Shower;Dress;Meals/Meal Prep;Going to the bathroom;Medication Management Needs Assistance: Transportation to appointments/community Services/Needs//Equipment Does Patient Currently Receive Any Community Services or Home Care?: None Equipment Prior to Admission: Cane;Walker Has the Patient Been in a Care Home Facility in the Past 30 days?: No No medical discharge barriers identified at this time. No social discharge barriers identified at this time. No behavioral/cognitive discharge barriers identified at this time. FREEDOM OF CHOICE EXPLAINED: Are you interested in bedside delivery of your medications? No ASSESSMENT AND PLAN: Discharge plan TBD at this time. Pt has history of falls. Pt uses [facility] for pharmacy. SIGNATURE: Trinh Roth RN PATIENT NAME: Lucho Browne DATE: May 09, 2022 TIME: 3:25 PM CONTACT #: [phone] NoteHNO ID: [id number] Author: Mariah Echols RN Service: Nursing Author Type: Registered Nurse Type: Nursing Progress Note Filed: 05/09/2022 2:04 PM Note Text: hgb-6.6. dr. Tejeda notified and 1 unit lp prbc's ordered to be transfused today.[facility]07-05-2022 NoteHNO ID: [id number] Author: Jordan Tejeda MD Service: Hospital Medicine Author Type: Physician Type: Progress Notes Filed: 05/09/2022 11:21 AM Note Text: INPATIENT PROGRESS NOTE SERVICE DATE: 05/09/2022 SERVICE TIME: 11:19 AM PRIMARY SERVICE: Hospitalist Subjective CHIEF COMPLAINT: Right groin pain INTERVAL HPI: 81-year-old female history of CKD stage III, diabetes, edema, hypertension, obstructive sleep apnea. Patient presents to the hospital with right groin pseudoaneurysm. Patient recently had procedure and was recently discharged 05/04 for right-sided renal artery stenosis status post stenting. Patient underwent ultrasound confirming pseudoaneurysm status post thrombin injection yesterday unfortunately still area and patient had sandbags placed yesterday. Patient will be going for repeat thrombin injection today. Patient's blood pressure has been difficult to control patient did make some improvement yesterday with IV hydralazine. Patient will be started on oral hydralazine with IV hydralazine as needed for breakthrough hypertension. We will need to maintain tight blood pressure control in setting of pseudoaneurysm formation. Patient will have close monitoring of hemoglobin we will transfuse if hemoglobin goes below 7. Patient will have a.m. labs performed on 05/08 05/08 patient today is more confused than yesterday. Yesterday when I spoke with patient she was alert and oriented x3. Patient today is alert x1. Patient is at risk for infection developing. We will obtain blood culture arterial blood gas ammonia urinalysis procalcitonin. I have very low suspicion of stroke given no focal deficits this appears to be more delirium present. Patient is going for repeat vascular ultrasound to evaluate pseudoaneurysm. Patient's hemoglobin remained stable patient does not need transfusion at this time. 05/09 patient today still confused. Patient on IV antibiotics. I expect mental status to improve likely tomorrow. In regards to patient's pseudoaneurysm patient's arterial duplex today preliminarily showed resolution of pseudoaneurysm. But will wait for final result after read from vascular surgery. Patient hemoglobin has remained stable we will recheck again this morning and tomorrow. Objective PHYSICAL EXAM: BP 155/48 Pulse 66 Temp (Src) 98.7 (Oral) Resp 18 Ht 5' 3 (1.60m) Wt 226 lb (102.5kg) SpO2 97% BMI 40.04 kg/(m2). Physical Exam Performed Physical Exam Constitutional: Appearance: Normal appearance. She is normal weight. HENT: Head: Normocephalic and atraumatic. Nose: Nose normal. Mouth/Throat: Mouth: Mucous membranes are moist. Eyes: Extraocular Movements: Extraocular movements intact. Pupils: Pupils are equal, round, and reactive to light. Cardiovascular: Rate and Rhythm: Normal rate. Pulses: Normal pulses. Pulmonary: Effort: Pulmonary effort is normal. Breath sounds: Normal breath sounds. Abdominal: Palpations: Abdomen is soft. Tenderness: There is no guarding or rebound. Musculoskeletal: General: Normal range of motion. Cervical back: Normal range of motion and neck supple. Skin: General: Skin is warm and dry. Capillary Refill: Capillary refill takes less than 2 seconds. Neurological: General: No focal deficit present. Mental Status: She is alert. She is disoriented. Motor: Tremor present. Psychiatric: Mood and Affect: Mood normal. DATA: Intake/Output Summary (Last 24 hours) at 05/09/2022 1119 Last data filed at 05/08/2022 2200 Gross per 24 hour Intake 660 ml Output 1100 ml Net -440 ml Current Facility-Administered Medications Medication Dose Route Frequency Provider Last Rate Last Admin - NaCl 0.9% iv infusion 50 mL/hr INTRAVENOUS CONTINUOUS Jordan Tejeda MD 50 mL/hr at 05/08/22 2215 50 mL/hr at 05/08/222214 - cefTRIAXone 1 g in D5W 100 mL Vial-Bag (ROCEPHIN) 1 g INTRAVENOUS q 24 H Jordan Tejeda MD 200 mL/hr at 05/09/22 0850 1 g at 05/09/22 0850 - NaCl 0.9% iv flush bag 20 mL INTRAVENOUS PRN Jordan Tejeda MD - hydrALAZINE 25 mg tab(s) (APRESOLINE) 25 mg ORAL q 8 H Jordan Tejeda MD 25 mg at 05/09/22 0558 - escitalopram oxalate 20 mg tab(s) (LEXAPRO) 20 mg ORAL DAILY Jordan Tejeda MD 20 mg at 05/09/22 0851 - ferrous sulfate 325 mg tab(s) 325 mg ORAL DAILY WITH BREAKFAST Jordan Tejeda MD 325 mg at 05/09/22 0851 - rosuvastatin 10 mg tab(s) (CRESTOR) 10 mg ORAL DAILY Jordan Tejeda MD 10 mg at 05/09/22 0851 - busPIRone 10 mg tab(s) (BUSPAR) 10 mg ORAL BID Jordan Tejeda MD 10 mg at 05/09/22 0851 - Cholecalciferol (Vitamin D3) 1,000 Units cap(s) 1,000 Units ORAL DAILY Jordan Tejeda MD 1,000 Units at 05/09/22 0852 - losartan 50 mg tab(s) (COZAAR) 50 mg ORAL BID Jordan Tejeda MD 50 mg at 05/09/22 0851 - carvedilol 12.5 mg tab(s) (COREG) 12.5 mg ORAL BID w MEALS Jordan Tejeda MD 12.5 mg at 05/09/22 0851 - sodium bicarbonate 650 mg tab(s) 650 mg ORAL DAILY Jordan Carter (more content not included)...[facility]07-04-2022 NoteHNO ID: [id number] Author: Jerome Hanna MD Service: Vascular Surgery Author Type: Physician Type: Progress Notes Filed: 05/08/2022 6:01 PM Note Text: SIGNATURE: Jerome Hanna MD PATIENT NAME: Lucho Browne DATE: May 08, 2022 TIME: 5:59 PM VASCULAR SURGERY PROGRESS NOTE SERVICE DATE: 05/08/2022 SERVICE TIME: 5:59 PM SUBJECTIVE: No overnight issues. Patient denies any significant right groin pain at this time. OBJECTIVE: Temp (24hrs), Av.8 ?C (98.3 ?F), Min:36 ?C (96.8 ?F), Max:37.1 ?C (98.8 ?F) General: Patient is alert and oriented x3 and is in no acute respiratory distress Neck: Negative hepatojugular reflux or jugular venous distention, negative carotid bruit. Lungs: Clear to auscultation, no wheezing, rales, or rhonchi. Cardiac: Regular rhythm and rate, S1-S2 within normal limits, no murmurs, gallops were appreciated, no rubs. Abdomen: Soft, nontender, nondistended, bowel sounds are positive. Extremities: Right groin with no significant hematoma Skin: No rashes or breakdown. Lymphatic: Negative cervical, supra-clavicular lymphadenopathy. Neurologic: Cranial nerves from II-XII intact grossly. Psychiatry: Normal affect. ASSESSMENT: 81-year-old female status post right renal stenting now admitted with right femoral pseudoaneurysm PLAN: -Will remove sandbag and increase activity -Plan for repeat right groin arterial duplex tomorrow morning -Dispo planning SIGNATURE: Jerome Hanna MD PATIENT NAME: Lucho Browne DATE: May 08, 2022 TIME: 5:[facility] History of Past illness Narrative* Problem Noted Date Resolved Date Metabolic encephalopathy 05/08/2022 022 Pseudoaneurysm of femoral artery 05/06/2022 05/12/2022 Acute renal failure superimp osed on stage 3b chronic kidney disease 11/24/2021 05/12/2022 documented as of this encounter (statuses as of 07/07/2022) [facility]07-04-2022 History of Past illness Narrative* Problem Noted Date Resolved Date Metabolic encephalopathy 05/08/2022 022 Pseudoaneurysm of femoral artery 05/06/2022 05/12/2022 Acute renal failure superimp osed on stage 3b chronic kidney disease 11/24/2021 05/12/2022 documented as of this encounter (statuses as of 07/17/2022) [facility]07-04-2022 History of Past illness Narrative* Problem Noted Date Resolved Date Metabolic encephalopathy 05/08/2022 022 Pseudoaneurysm of femoral artery 05/06/2022 05/12/2022 Acute renal failure superimp osed on stage 3b chronic kidney disease 11/24/2021 05/12/2022 documented as of this encounter (statuses as of 01/02/2023) [facility]07-04-2022 NoteHNO ID: [id number] Author: Jordan Tejeda MD Service: Hospital Medicine Author Type: Physician Type: Progress Notes Filed: 05/08/2022 8:51 AM Note Text: INPATIENT PROGRESS NOTE SERVICE DATE: 05/08/2022 SERVICE TIME: 8:48 AM PRIMARY SERVICE: Hospitalist Subjective CHIEF COMPLAINT: Right groin pain INTERVAL HPI: 81-year-old female history of CKD stage III, diabetes, edema, hypertension, obstructive sleep apnea. Patient presents to the hospital with right groin pseudoaneurysm. Patient recently had procedure and was recently discharged 05/04 for right-sided renal artery stenosis status post stenting. Patient underwent ultrasound confirming pseudoaneurysm status post thrombin injection yesterday unfortunately still area and patient had sandbags placed yesterday. Patient will be going for repeat thrombin injection today. Patient's blood pressure has been difficult to control patient did make some improvement yesterday with IV hydralazine. Patient will be started on oral hydralazine with IV hydralazine as needed for breakthrough hypertension. We will need to maintain tight blood pressure control in setting of pseudoaneurysm formation. Patient will have close monitoring of hemoglobin we will transfuse if hemoglobin goes below 7. Patient will have a.m. labs performed on 05/08 05/08 patient today is more confused than yesterday. Yesterday when I spoke with patient she was alert and oriented x3. Patient today is alert x1. Patient is at risk for infection developing. We will obtain blood culture arterial blood gas ammonia urinalysis procalcitonin. I have very low suspicion of stroke given no focal deficits this appears to be more delirium present. Patient is going for repeat vascular ultrasound to evaluate pseudoaneurysm. Patient's hemoglobin remained stable patient does not need transfusion at this time. Objective PHYSICAL EXAM: BP 134/30 Pulse 62 Temp (Src) 98.7 (Oral) Resp 18 Ht 5' 3 (1.60m) Wt 228 lb (103.4kg) SpO2 97% BMI 40.40 kg/(m2). O2 Therapy: Room Air Physical Exam Performed Physical Exam Constitutional: Appearance: Normal appearance. She is normal weight. HENT: Head: Normocephalic and atraumatic. Nose: Nose normal. Mouth/Throat: Mouth: Mucous membranes are moist. Eyes: Extraocular Movements: Extraocular movements intact. Pupils: Pupils are equal, round, and reactive to light. Cardiovascular: Rate and Rhythm: Normal rate. Pulses: Normal pulses. Pulmonary: Effort: Pulmonary effort is normal. Breath sounds: Normal breath sounds. Abdominal: Palpations: Abdomen is soft. Tenderness: There is no guarding or rebound. Musculoskeletal: General: Normal range of motion. Cervical back: Normal range of motion and neck supple. Skin: General: Skin is warm and dry. Capillary Refill: Capillary refill takes less than 2 seconds. Neurological: General: No focal deficit present. Mental Status: She is alert. She is disoriented. Motor: Tremor present. Psychiatric: Mood and Affect: Mood normal. DATA: Intake/Output Summary (Last 24 hours) at 05/08/2022 0848 Last data filed at 05/07/20222001 Gross per 24 hour Intake 400 ml Output 700 ml Net -300 ml Current Facility-Administered Medications Medication Dose Route Frequency Provider Last Rate Last Admin - NaCl 0.9% iv infusion 50 mL/hr INTRAVENOUS CONTINUOUS Jordan Tejeda MD - hydrALAZINE 25 mg tab(s) (APRESOLINE) 25 mg ORAL q 8 H Jordan Tejeda MD 25 mg at 05/08/22 0540 - escitalopram oxalate 20 mg tab(s) (LEXAPRO) 20 mg ORAL DAILY Jordan Tejeda MD 20 mg at 05/07/22 0830 - ferrous sulfate 325 mg tab(s) 325 mg ORAL DAILY WITH BREAKFAST Jordan Tejeda MD 325 mg at 05/07/22827 - rosuvastatin 10 mg tab(s) (CRESTOR) 10 mg ORAL DAILY Jordan Tejeda MD 10 mg at 05/07/22 0830 - busPIRone 10 mg tab(s) (BUSPAR) 10 mg ORAL BID Jordan Tejeda MD 10 mg at 05/07/222200 - Cholecalciferol (Vitamin D3) 1,000 Units cap(s) 1,000 Units ORAL DAILY Jordan Tejeda MD 1,000 Units at 05/07/22 0831 - losartan 50 mg tab(s) (COZAAR) 50 mg ORAL BID Jordan Tejeda MD 50 mg at 05/07/22827 - carvedilol 12.5 mg tab(s) (COREG) 12.5 mg ORAL BID w MEALS Jordan Tejeda MD 12.5 mg at 05/07/22 180 - sodium bicarbonate 650 mg tab(s) 650 mg ORAL DAILY Jordan Tejeda MD 650 mg at 05/07/22827 - doxazosin 4 mg tab(s) (CARDURA) 4 mg ORAL AT BEDTIME Jordan Tejeda MD 4 mg at 05/07/222200 - hydrALAZINE 10 mg injection (APRESOLINE) 10 mg INTRAVENOUS q 6 H PRN Jordan Tejeda MD 10 mg at 05/07/22 0835 Assessment/Plan Principal Problem: Pseudoaneurysm of femoral artery (HCC) POA: Yes Assessment AND Plan: Patient with pseudoaneurysm status post thrombin injection. Patient also with hypertension continue aggressive blood pressure management with home medications addition of oral hydralazine and as needed hydralazine intravenous . patient continues to have issues may need ano (more content not included)...[facility]07-03-2022 NoteHNO ID: [id number] Author: Natalee Vazquez RN Service: Care Management Author Type: Registered Nurse Type: Care Mgt Progress Note Filed: 05/07/2022 11:38 AM Note Text: Summary: Placement Received phone call from TRUONG Myrick that daughter (Marixa) inquiring about placement. Ramez asked this CM to talk with daughter. CM arrived at bedside, spoke with Marixa. Marixa states that patient is permanent resident at [facility] and would like the patient to d/c here if she is in need of therapy/rehab. Per Marixa, she would like called when d/c plans are made so she can facility the patients belongings being sent to facility while she would be getting treatment. Also, Marixa states that she has been in communication with facility and they state that there is a bedhold for Lucho when she is ready to be transferred. Sent [facility] a referral/task via [employer]. Also informed CHIQUIS yMrick, for the weekend of this. Will continue to follow case as needs arise.[facility]07-03-2022 NoteHNO ID: [id number] Author: Jordan Tejeda MD Service: Hospital Medicine Author Type: Physician Type: Progress Notes Filed: 05/07/2022 10:51 AM Note Text: INPATIENT PROGRESS NOTE SERVICE DATE: 05/07/2022 SERVICE TIME: 10:44 AM PRIMARY SERVICE: Hospitalist Subjective CHIEF COMPLAINT: Right groin pain INTERVAL HPI: 81-year-old female history of CKD stage III, diabetes, edema, hypertension, obstructive sleep apnea. Patient presents to the hospital with right groin pseudoaneurysm. Patient recently had procedure and was recently discharged 05/04 for right-sided renal artery stenosis status post stenting. Patient underwent ultrasound confirming pseudoaneurysm status post thrombin injection yesterday unfortunately still area and patient had sandbags placed yesterday. Patient will be going for repeat thrombin injection today. Patient's blood pressure has been difficult to control patient did make some improvement yesterday with IV hydralazine. Patient will be started on oral hydralazine with IV hydralazine as needed for breakthrough hypertension. We will need to maintain tight blood pressure control in setting of pseudoaneurysm formation. Patient will have close monitoring of hemoglobin we will transfuse if hemoglobin goes below 7. Patient will have a.m. labs performed on 05/08 Objective PHYSICAL EXAM: BP 150/44 Pulse 54 Temp (Src) 98.5 (Oral) Resp 16 Ht 5' 3 (1.60m) Wt 228 lb (103.4kg) SpO2 94% BMI 40.40 kg/(m2). O2 Therapy: Room Air Physical Exam Performed Physical Exam Constitutional: Appearance: Normal appearance. She is normal weight. HENT: Head: Normocephalic and atraumatic. Nose: Nose normal. Mouth/Throat: Mouth: Mucous membranes are moist. Eyes: Extraocular Movements: Extraocular movements intact. Pupils: Pupils are equal, round, and reactive to light. Cardiovascular: Rate and Rhythm: Normal rate. Pulses: Normal pulses. Pulmonary: Effort: Pulmonary effort is normal. Breath sounds: Normal breath sounds. Abdominal: Palpations: Abdomen is soft. Tenderness: There is no guarding or rebound. Musculoskeletal: General: Normal range of motion. Cervical back: Normal range of motion and neck supple. Skin: General: Skin is warm and dry. Capillary Refill: Capillary refill takes less than 2 seconds. Neurological: General: No focal deficit present. Mental Status: She is alert and oriented to person, place, and time. Psychiatric: Mood and Affect: Mood normal. DATA: Intake/Output Summary (Last 24 hours) at 05/07/2022 1044 Last data filed at 05/06/2022 2208 Gross per 24 hour Intake 300 ml Output 1150 ml Net -850 ml Current Facility-Administered Medications Medication Dose Route Frequency Provider Last Rate Last Admin - lidocaine 10 mg/mL (1 %) 100 mg injection (XYLOCAINE) 10 mL INTRADERMAL ONCE Jerome Hanna MD - thrombin 5,000 Units topical liquid 5,000 Units TOPICAL ONCE Jerome Hanna MD - hydrALAZINE 25 mg tab(s) (APRESOLINE) 25 mg ORAL q 8 H Jordan Tejeda MD - escitalopram oxalate 20 mg tab(s) (LEXAPRO) 20 mg ORAL DAILY Jordan Tejeda MD 20 mg at 05/07/22 0830 - ferrous sulfate 325 mg tab(s) 325 mg ORAL DAILY WITH BREAKFAST Jordan Tejeda MD 325 mg at 05/07/22827 - rosuvastatin 10 mg tab(s) (CRESTOR) 10 mg ORAL DAILY Jordan Tejeda MD 10 mg at 05/07/22 0830 - busPIRone 10 mg tab(s) (BUSPAR) 10 mg ORAL BID Jordan Tejeda MD 10 mg at 05/07/22 0831 - Cholecalciferol (Vitamin D3) 1,000 Units cap(s) 1,000 Units ORAL DAILY Jordan Tejeda MD 1,000 Units at 05/07/22 08 - losartan 50 mg tab(s) (COZAAR) 50 mg ORAL BID Jordan Tejeda MD 50 mg at 05/07/22 08 - torsemide 40 mg tab(s) (DEMADEX) 40 mg ORAL DAILY Jordan Tejeda MD 40 mg at 05/07/22 0828 - spironolactone 50 mg tab(s) (ALDACTONE) 50 mg ORAL q 48 HR Jordan Tejeda MD 50 mg at 05/06/22 1413 - carvedilol 12.5 mg tab(s) (COREG) 12.5 mg ORAL BID w MEALS Jordan Tejeda MD 12.5 mg at 05/07/22 0829 - sodium bicarbonate 650 mg tab(s) 650 mg ORAL DAILY Jordan Tejeda MD 650 mg at 05/07/22 0828 - doxazosin 4 mg tab(s) (CARDURA) 4 mg ORAL AT BEDTIME Jordan Tejeda MD - hydrALAZINE 10 mg injection (APRESOLINE) 10 mg INTRAVENOUS q 6 H PRN Jordan Tejeda MD 10 mg at 05/07/22 0835 Assessment/Plan Principal Problem: Pseudoaneurysm of femoral artery (HCC) POA: Yes Assessment AND Plan: Patient with pseudoaneurysm status post thrombin injection. Patient also with hypertension continue aggressive blood pressure management with home medications addition of oral hydralazine and as needed hydralazine intravenous . patient continues to have issues may need another agent may consider for calcium channel guevara or nitrate. Resolved Problems: * No resolved hospital problems. * DVT prophylaxis: SCDs Diet: ADA 1800 IV fluids: Hep-Lock Medication and Non-Pharmacologic VTE Prophylaxis/Anticoagulants 05/07/22 1045 [employer] (more content not included)...[facility] 05-04-2022 NoteHNO ID: [id number] Author: Carmen Woods RN Service: ? Author Type: Registered Nurse Type: Nursing Progress Note Filed: 05/04/2022 2:02 PM Note Text: Daughter at bedside and reports she spoke to MD at time surgery ended[facility] Diagnosis Hypertension, unspecified type- Primary documented in this encounter 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 note* Diagnosis Localized edema- Primary Edema Essential hypertension, benign Chronic kidney disease, stage IV (severe) ([facility]) Chronic kidney disease, Stage IV (severe) Type 2 diabetes mellitus without complication, without long-term current use of insulin (HCC) Obstructive sleep apnea treated with bilevel positive airway pressure (BiPAP) History of echocardiogram Other specified personal history presenting hazards to health Non-smoker Other specified conditions influencing health status documented in this encounter 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 Renal artery stenosis Atherosclerosis of renal artery Primary hypertension Unspecified essential hypertension Class 3 severe obesity due to excess calories with serious comorbidity and body mass index (BMI) of 40.0 to 44.9 in adult (HCC) History of echocardiogram Other specified personal history presenting hazards to health documented in this encounter [facility] for referral (narrative)* Outpatient Procedure (Routine) - Authorized Specialty Diagnoses / Procedures Referred By Aureliano t Ref[facility] To [facility] Diagnoses Hypertension, unspecified type Procedures ECG COMPLETE ECG ROUTINE ECG W/LEAST 12 LDS W/I&R Susie Hope APRN.CNP [address] [place] [address] [facility] [address] [place] [address] Referral ID Status Reason Start Date Expiration Date Visits Requested Visits Authorized [id number] Authorized Auto-Generat ed Referral 07/07/2022 07/07/2023 1 1 [facility]No reason for referral information availableWCleveland Clinic Foundation Work Phone: Summary Purpose Family History No Family History Records FoundNo Family History Records FoundNo Family History Records FoundNo Family History Records FoundNo Family History Records FoundNo Family History Records FoundNo Family History Records FoundNo Family History Records FoundNo Family History Records FoundNo Family History Records FoundNo Family History Records FoundNo Family History Records Found Advance Directives No Advanced Directives Records FoundLatest Code Status on File Code Status Date Activated Date Inactivated Comments Full Code 02/11/2024 11:31 PM 02/16/2024 5:24 PM Healthcare Agents on File Name Relationship Healthcare Agent Relationship Communication Jose C Jorge Son Health Care Agent Violetta Koroma Daughter First Alternate Health Care Agent Chief Complaint and Reason for Visit Chief Complaint Admit Date Discuss AVF Creation February 24, 2025 2: 27pm PRE-OP Chronic kidney disease, stage 4 A pril 2024 1:03pm Reason for Visit Admit Date CKD (chronic kidney disease), stage IV A pril 2024 2:27pm Additional Source Comments INFORMATION SOURCE (unrecogn ized section and content) DATE CREATED AUTHOR 2021 [facility] DATE CREATED AUTHOR AUTHOR'S ORGANIZ ATION 12/22/2021 [facility] DATE CREATED AUTHOR AUTHOR'S ORGANIZ ATION 04/10/2022 [facility] Deanne Reynaga DATE CREATED AUTHOR AUTHOR'S ORGANIZ ATION 05/13/2022 [facility] DATE CREATED AUTHOR AUTHOR'S ORGANIZ ATION 11/03/2023 [facility] EPIC DATE CREATED AUTHOR AUTHOR'S ORGANIZ ATION 02/17/2024 [facility] ([place]) DATE CREATED AUTHOR AUTHOR'S ORGANIZ ATION 02/18/2024 [facility] DATE CREATED AUTHOR AUTHOR'S ORGANIZ ATION 08/16/2024 [facility] DATE CREATED AUTHOR AUTHOR'S ORGANIZ ATION 04/21/2025 [facility] DATE CREATED AUTHOR AUTHOR'S ORGANIZ ATION 04/25/2025 [facility] DATE CREATED AUTHOR AUTHOR'S ORGANIZ ATION 04/26/2025 [facility] DATE CREATED AUTHOR AUTHOR'S ORGANIZ ATION 04/26/2025 [facility] Source Comments (unrecognize d section and content) In the event this informatio n is protected by the Federal Confidentiality of Alcohol and Drug Abuse Patient Records regulations: The Federal rules restrict any use of the information to criminally investigate or prosecute any alcohol or drug abuse patient.[facility]healthIn the event this information is protected by the Federal Confidentiality of Alcohol and Drug Abuse Patient Records regulations: The Federal rules restrict any use of the information to criminally investigate or prosecute any alcohol or drug abuse patient.[facility]healthIn the event this information is protected by the Federal Confidentiality of Alcohol and Drug Abuse Patient Records regulations: The Federal rules restrict any use of the information to criminally investigate or prosecute any alcohol or drug abuse patient.[facility]healthIn the event this information is protected by the Federal Confidentiality of Alcohol and Drug Abuse Patient Records regulations: The Federal rules restrict any use of the information to criminally investigate or prosecute any alcohol or drug abuse patient.[facility]healthIn the event this information is protected by the Federal Confidentiality of Alcohol and Drug Abuse Patient Records regulations: The Federal rules restrict any use of the information to criminally investigate or prosecute any alcohol or drug abuse patient.[facility]healthIn the event this information is protected by the Federal Confidentiality of Alcohol and Drug Abuse Patient Records regulations: The Federal rules restrict any use of the information to criminally investigate or prosecute any alcohol or drug abuse patient.[facility]healthIn the event this information is protected by the Federal Confidentiality of Alcohol and Drug Abuse Patient Records regulations: The Federal rules restrict any use of the information to criminally investigate or prosecute any alcohol or drug abuse patient.[facility]healthIn the event this information is protected by the Federal Confidentiality of Alcohol and Drug Abuse Patient Records regulations: The Federal rules restrict any use of the information to criminally investigate or prosecute any alcohol or drug abuse patient.[facility] Care Teams (unrecognized sec tion and content) Dental Practice Manager Relationship Specialty Start Date End Date Avelino Deleon MD [address] [phone] PCP - General Internal Medicine 03/06/22 Dental Practice Manager Relationship Specialty Start Date End Date Avelino Deleon MD [address] [phone] PCP - General Internal Medicine 03/06/22 Dental Practice Manager Relationship Specialty Start Date End Date Avelino Deleon MD [address] [phone] PCP - General Internal Medicine 03/06/22 Dental Practice Manager Relationship Specialty Start Date End Date Avelino Deleon MD [address] [phone] PCP - General Internal Medicine 03/06/22 Dental Practice Manager Relationship Specialty Start Date End Date Avelino Deleon [address] [place] [address] [place] [id number] PCP - General Geriatric Medicine 02/12/24 Rosario Mace, PROCUREMENT SPECIALIST - ECONOMIC DEVELOPMENT DIRECTOR [address] [facility] [address] [place] [address] Nurse Practitioner Gerontology 02/13/24 Dental Practice Manager Relationship Specialty Start Date End Date Avelino Deleon MD [address] [facility] [address] [place], [place] [id number] PCP - General Internal Medicine 03/06/22 Team Status: Active Member Role Status Dates Dr. Avelino Deleon MD Primary Care Provider Active Team Status: Inactive Member Role Status Dates Dr. Avelino Deleon MD Primary Care Provider Active Start: February 24, 2025 End: February 24, 2025 Dr. Avelino Deleon MD Referring Provider Active Start: February 24, 2025 End: February 24, 2025 E[facility] Trevino Attending Provider Active Star t: February 24, 2025 End: February 24, 2025 Team Status: Inactive Member Role Status Dates Dr. Avelino Deleon MD Primary Care Provider Active Start: March 04, 2025 End: March 04, 2025 E[facility] Trevino Attending Provider Active Star t: March 04, 2025 End: March 04, 2025 E[facility] Trevino Referring Provider Active Star t: March 04, 2025 End: March 04, 2025 Team Status: Active Member Role Status Dates Dr. Avelino Deleon MD Primary Care Provider Active Start: March 04, 2025 Dr. Jose C Ashraf MD Attending Provider Active S tart: March 04, 2025 Dental Practice Manager Relationship Specialty Start Date End Date Avelino Deleon MD [address] [facility] [address] [place] [phone] PCP - General Internal Medicine 03/06/22 Dental Practice Manager Relationship Specialty Start Date End Date Avelino Deleon MD [address] [facility] [address] [place] [phone] PCP - General Internal Medicine 03/06/22 Reason for Visit (unrecogniz ed section and content) Reason Comments Follow Up Reason Comments Established Patient Follow-Up 3 month fo llow up for BLE Edema. Specialty Diagnoses / Procedures Referred By Contgretchen t Referred To Contact Diagnoses Ischemic stroke (HCC) Stroke Team Procedures - Joy Page, DO [address] [place] [address] Referral ID Status Reason Start Date Expiration Date Visits Re quested Visits Authorized [id number] 1 1 Reason Comments Appointment Reason Comments Cardiology Follow Up Patient currently r esides at [facility] in [place], [facility]. Scheduled Active and Recently Administ ered Medications (unrecognized section and content) Medication Order 02/14/2024 02/15/2024 02/16/2024 amLODIPine (Norvasc) tablet 10 mg 10 mg, Oral, Daily, First dose (after last modification) on Sun02/13/24 at 0900, Hold for SBP < 105 0822 (Given - Provider: Pat River RN) 0827 (Given - Provider: Laura Scott, RN) 0826 (Given - Provider: Rosario Rose, RN) aspirin EC tablet 81 mg 81 mg, Oral, Daily, First dose on Sun02/12/24 at 1730, Do not crush, chew, or split. 0822 (Given - Provider: Pat River RN) 0827 (Given - Provider: Laura Scott, RN) 0826 (Given - Provider: Rosario Rose, RN) atorvastatin (Lipitor) tablet 40 mg 40 mg, Oral, Nightly, First dose (after last modification) on Sun02/13/24 at 2100, If NO ALLERGIES or INTOLERANCE TO STATINS REPORTED BY PATIENT OR DOCUMENTED HOLD IF NPO 2019 (Given - Provider: Abelino Ellis, RN) 2134 (Given - Provider: Abelino Ellis, RN) busPIRone (Buspar) tablet 10 mg 10 mg, Oral, 2 times daily, First dose on Sun02/12/24 at 1030 0822 (Given - Provider: Pat River RN)2019 (Given - Provider: Abelino Ellis RN) 08 (Given - Provider: Laura Scott, RN)2134 (Given - Provider: Abelino Ellis RN) 08 (Given - Provider: Rosario Rose, RN) chlorthalidone (Hygroton) tablet 12.5 mg 12.5 mg, Oral, Daily, First dose on Sun02/13/24 at 1130, Hold for SBP < 100 0822 (Given - Provider: Pat River RN) 08 (Given - Provider: Laura Scott, RN) 08 (Given - Provider: Rosario Rose, RN) cloNIDine (Catapres) tablet 0.1 mg 0.1 mg, Oral, 2 times daily, First dose on Sun02/12/24 at 1030, Hold for SBP < 105 0545 (Given - Provider: Estephania Mann RN)1633 (Given - Provider: Pat River RN) 0552 (Given - Provider: Abelino Ellis, TRUONG)1533 (Given - Provider: Laura Scott, RN) 0551 (Given - Provider: Abelino Ellis, TRUONG)1500 (Canceled Entry - Provider: Automatic Discharge Provider - Comment: Automatically canceled at discontinue of medication order) doxazosin (Cardura) tablet 2 mg 2 mg, Oral, 2 times daily, First dose (after last modification) on Sun02/14/24 at 1030, Hold for SBP < 120 1132 (Given - Provider: Pat River RN)2019 (Given - Provider: Abelino Ellis RN) 08 (Given - Provider: Laura Scott, RN)2134 (Given - Provider: Abelino Ellis, TRUONG) 826 (Given - Provider: Rosario Rose, TRUONG) senna-docusate sodium (Senokot-S) 8.6-50 MG tablet 2 tablet 2 tablet, Oral, 2 times daily, First dose on Sun02/14/24 at 1200, Hold for diarrhea or multiple BMs 1235 (Given - Provider: Pat M. River, RN)2020 (Given - Provider: Abelino Ellis RN) 0900 (Not Given - Provider: Laura Scott RN - Reason: Patient/family refused)2135 (Given - Provider: Abelino Ellis RN) 0827 (Given - Provider: Rosario Rose, TRUONG) sodium chloride 0.9% (NS) flush 5-40 mL 5-40 mL, IntraVENous, Every 12 hours, First dose on Sun02/11/24 at 2335, For Line Patency: Peripheral IV = 5 mL; Midline or Central Line = 10 mL/lumen. If following IV push medication, administer flush at same rate as the IV push. Flush volume is determined by type of infusion therapy being given. For non-viscous solutions use: Peripheral IV = 5 mL Midline or Central Line = 10 mL/lumen For viscous solutions (i.e. blood components, parenteral nutrition, contrast media, or after obtaining blood sample) use: Peripheral IV = 10 mL Midline or Central Line = 20 mL/lumen 1236 (Given - Provider: Pat River RN)2335 (Given - Provider: Abelino Ellis RN) 1135 (Not Given - Provider: Laura Scott RN - Reason: Patient not available)2335 (Given - Provider: Abelino Ellis RN) 1135 (Not Given - Provider: Rosario Rose RN - Reason: Contraindicated) spironolactone (Aldactone) tablet 25 mg (CANCELED) 25 mg, Oral, Daily, First dose on Sun02/12/24 at 1730, Hold for SBP < 105 0822 (Given - Provider: Pat River RN) 0827 (Given - Provider: Laura Scott, TRUONG) spironolactone (Aldactone) tablet 50 mg 50 mg, Oral, Daily, First dose (after last modification) on Sun02/16/24 at 0900, Hold for SBP < 105 0827 (Given - Provid er: Rosario Rose RN) PRN Medication Order 02/14/2024 02/15/2024 02/16/2024 acetaminophen (Tylenol) suppository 650 mg(Linked Group 1) 650 mg, Rectal, Every 6 hours PRN, mild pain (1-3), fever, For temp greater than 100.4 F (38 C), Starting on Sun02/11/24 at 2328, Administer if oral route cannot be used. Maximum dose of acetaminophen is 4000 mg from all sources in 24 hours. acetaminophen (Tylenol) tablet 650 mg(Linked Group 1) 650 mg, Oral, Every 6 hours PRN, mild pain (1-3), fever, For temp greater than 100.4 F (38 C), Starting on Sun02/11/24 at 2328, Maximum dose of acetaminophen is 4000 mg from all sources in 24 hours. bisacodyl (Dulcolax) suppository 10 mg 10 mg, Rectal, Daily PRN, constipation, Starting on Sun02/11/24 at 2328, 2nd line for treatment of constipation - give scheduled (in addition to 1st line agent) if no bowel movement in past 48 hours gadobutrol (Gadavist) injection 12 mL (COMPLETED) 12 mL, IntraVENous, IMG once PRN, contrast, Starting on Sun02/15/24 at 1039, For 1 dose 1125 (Given - Provider: Davida Garner, RT (R)(MR)) hydrALAZINE (Apresoline) injection 10 mg (CANCELED) 10 mg, IntraVENous, Every 4 hours PRN, high blood pressure, for SBP > 160, use second line if SBP > 180 and HR < 60, Starting on Sun02/15/24 at 1156 1249 (Given - Provider: Laura Scott RN) hydrALAZINE (Apresoline) tablet 25 mg 25 mg, Oral, 2 times daily PRN, SBP > 170, Starting on Sun02/15/24 at 1404 0015 (Given - Provid er: Abelino Ellis RN) labetalol (Normodyne,Trandate) injection 10 mg 10 mg, IntraVENous, Every 1 hour PRN, high blood pressure, Starting on Sun02/12/24 at 0645, During or Post thrombolytic agent administration: For SBP greater than 180 or DBP greater than 105 Give over 1-2 minutes. IF HR < 65 use second option, hydralazine order 2306 (Given - Provider: Abelino Ellis, TRUONG) ondansetron (Zofran) injection 4 mg(Linked Group 2) 4 mg, IntraVENous, Every 6 hours PRN, nausea, vomiting, Starting on Sun02/11/24 at 2328, 1st Line. Give IV if patient is unable to take orally. If inadequate response within 60 minutes, proceed to next-line agent or contact provider if no further options ordered. ondansetron ODT (Zofran-ODT) disintegrating tablet 4 mg(Linked Group 2) 4 mg, Oral, Every 8 hours PRN, nausea, vomiting, Starting on Sun02/11/24 at 2328, 1st Line. If inadequate response within 60 minutes, proceed to next-line agent or contact provider if no further options ordered. Patient should allow tablet to dissolve on tongue. Do not remove from blister pack until just before administering. polyethylene glycol (PEG) 3350 (Miralax) packet 17 g 17 g, Oral, Daily PRN, constipation, Starting on Sun02/11/24 at 2328, 1st line for treatment of constipation - give scheduled if no bowel movement in past 24 hours. sodium chloride 0.9 % infusion 5-250 mL/hr, IntraVENous, PRN, if patient receiving piggyback infusions and maintenance fluids are not ordered OR KVO fluids to protect IV site / prevent frequent line interruptions / long duration, Starting on Sun02/11/24 at 2328, For piggyback infusion, administer at same rate as piggyback for a total of 25 mL. Enter 25 mL into dose field and piggyback rate into rate field of order. If piggyback is infusing at a rate less than 100 mL/hr, enter 25 mL into dose field and 100 mL/hr into rate field of order. For KVO fluids, enter rate of 20 mL/hr or less into rate field of order. sodium chloride 0.9% (NS) flush 5-40 mL 5-40 mL, IntraVENous, PRN, line care, After every IV line use, Starting on Sun02/11/24 at 2328, For Line Patency: Peripheral IV = 5 mL; Midline or Central Line = 10 mL/lumen. If following IV push medication, administer flush at same rate as the IV push. Flush volume is determined by type of infusion therapy being given. For non-viscous solutions use: Peripheral IV = 5 mL Midline or Central Line = 10 mL/lumen For viscous solutions (i.e. blood components, parenteral nutrition, contrast media, or after obtaining blood sample) use: Peripheral IV = 10 mL Midline or Central Line = 20 mL/lumen Linked Groups Order Group 1: acetaminophen (Tylenol) tablet 650 mgJump to med 650 mg, Oral, Every 6 hours PRN, mild pain (1-3), fever, For temp greater than 100.4 F (38 C), Starting on 02/11/24 at 2328, Maximum dose of acetaminophen is 4000 mg from all sources in 24 hours. Or acetaminophen (Tylenol) suppository 650 mgJump to med 650 mg, Rectal, Every 6 hours PRN, mild pain (1-3), fever, For temp greater than 100.4 F (38 C), Starting on Sun02/11/24 at 2328, Administer if oral route cannot be used. Maximum dose of acetaminophen is 4000 mg from all sources in 24 hours. Group 2: ondansetron ODT (Zofran-ODT) disintegrating tablet 4 mgJump to med 4 mg, Oral, Every 8 hours PRN, nausea, vomiting, Starting on Sun02/11/24 at 2328, 1st Line. If inadequate response within 60 minutes, proceed to next-line agent or contact provider if no further options ordered. Patient should allow tablet to dissolve on tongue. Do not remove from blister pack until just before administering. Or ondansetron (Zofran) injection 4 mgJump to med 4 mg, IntraVENous, Every 6 hours PRN, nausea, vomiting, Starting on 02/11/24 at 2328, 1st Line. Give IV if patient is unable to take orally. If inadequate response within 60 minutes, proceed to next-line agent or contact provider if no further options ordered. Goals (unrecognized section and content) Goals may be documented in a n alternate section FOR RECORDS PERTAINING TO PATIENTS WHO ARE OR HAVE BEEN ENROLLED IN A CHEMICAL DEPENDENCY/SUBSTANCEABUSE PROGRAM, SOME INFORMATION MAY BE OMITTED. This clinical summary was aggregated from multiple sources. Caution should be exercised in using it in the provision of clinical care. This summary normalizes information from multiple sources, and as a consequence, information in this document may materially change the coding, format and clinical context of patient data. In addition, data may be omitted in some cases. CLINICAL DECISIONS SHOULD BE BASED ON THE PRIMARY CLINICAL RECORDS. [employer] [facility]. provides no warranty or guarantee of the accuracy or completeness of information in this document.
[2025-04-27] MEDS: 0.9% Normal Saline (1000mL) 1,000 ML 15 ML IV (06:39)
[2025-04-27 06:59] LABS: Bedside Glucose 164 mg/dL (74-106)
--- NOTE | 2025-04-27 07:08 | PCM.PRE.AN2 ---
ASA Classification* ASA Classification ASA Classification: 3 Assessment & Plan Anesthesia* Anesthesia Assessment Anesthesia Assessment: Discussed sedation and/or anesthesia options, risks, benefits, and alternatives with patient/parents/legal guardian/POA. Questions invited. The patient/parents/legal guardian/POA seems to understand and agrees to proceed with anesthesia plan. Reviewed the physical assessment, medical history, allergy history and patient home medications list prior to surgery/procedure/anesthetic and documented any changes. Performed airway and anesthesia risk assessments. Anesthesia Type Anesthesia Type: General History Source History Obtained from:: Patient and Chart Anesthesia Focused Assessment* Temperature: 97.8 F Pulse Rate: 67 Blood Pressure: 165/46 Respiratory Rate: 18 Pulse Ox: 97 Oxygen Delivery Method: Room Air Airway Assessment Mouth opens: >3 cm Mallampati Score: II Teeth Condition: Dentures and Full Labs Anesthesia Preop lab: CBC WBC 9.0 K/mm3 (4.4-11.0) 09/12/19 11:12 09/12/19 RBC 3.72 M/mm3 (4.2-5.4) L 09/12/19 11:12 09/12/19 Hgb 10.7 g/dL (12.0-15.0) L 09/12/19 11:12 09/12/19 Hct 33.5 % (37-47) L 09/12/19 11:12 09/12/19 Plt Count 112 K/mm3 (150-450) L 09/12/19 11:12 09/12/19 CHEMISTRY Potassium 3.7 mmol/L (3.5-5.1) 09/12/19 11:12 09/12/19 Sodium 142 mmol/L (136-145) 09/12/19 11:12 09/12/19 BUN 68 mg/dL (7-18) H 09/12/19 11:12 09/12/19 Creatinine 1.68 mg/dL (0.55-1.02) H 09/12/19 11:12 09/12/19 Glucose 97 mg/dL (74-106) 09/12/19 11:12 09/12/19 POC Glucose 164 mg/dL (74-106) H 04/27/25 06:12 04/27/25 TSH 3.13 uIU/mL (0.358-3.74) 07/02/19 10:51 07/02/19 COAG Pre-Assessment Diagnosis/Proposed Procedure Planned Operative Procedure(s): (R) Right Arm Arteriovenous Fistula,Creation Anesthesia History Anesthesia History - grand scribe: Anesthesia History - grand scribe Hx Hospitalization No 04/03/25 15:27 Any Problems With Anesthesia No 04/03/25 15:27 Cholinesterase deficiency No 04/03/25 15:27 You/Your Family Experience No 04/03/25 15:27 fever (hyperthermia) with Relationship Recent Exposure to Contagious No 04/27/25 06:17 Disease Does patient have nerve No 04/03/25 15:27 stimulator Patient instructed to have device shut off --Does patient have Pacemaker No 04/27/25 06:17 or ICD? When Was Last Pacemaker Check QUESTION #4 FULL TEXT: You/Your Family Experience fever (hyperthermia) with Anesthesia Last Oral Intake Last Oral intake: Last Oral Intake NPO since 00:00 04/27/25 06:17 Meds taken in AM with sips of Yes 04/27/25 06:17 water? Meds patient instructed to take am of surgery PONV PONV - grand scribe: PONV - grand scribe Female Yes 04/03/25 15:27 HX of Motion Sickness No 04/03/25 15:27 HX of N/V After Surgery No 04/03/25 15:27 Non-Smoker Yes 04/03/25 15:27 Duration of Surgery greater No 04/03/25 15:27 than 60 minutes Number of Risk Factors 2 04/03/25 15:27 PONV Score Moderate Risk 04/03/25 15:27 Height & Weight Height & Weight: Anesthesia: Height & Weight Height 5 ft 3 in 04/27/25 06:17 Weight: 67 kg 04/27/25 06:17 Body Mass Index (BMI) 26.2 04/27/25 06:17 Respiratory Assessment Respiratory Assessment - grand scribe: Respiratory Tract Infection Hx - grand scribe Hx Respiratory Tract Infection No 04/03/25 15:27 STOP Sleep Apnea STOP Sleep Apnea - grand scribe: STOP Sleep Apnea - grand scribe Hx Hypertension Yes: CONTROLLED ON MED 04/03/25 15:27 Hx Sleep Apnea No 04/03/25 15:27 CPAP BIPAP Do you snore loudly (louder No 04/03/25 15:27 than talking or can be heard Do you often feel tired/ No 04/03/25 15:27 fatigued/ sleepy during daytime? Has anyone observed you stop No 04/03/25 15:27 breathing during sleep? STOP Results Negative 04/03/25 15:27 QUESTION #5 FULL TEXT : Do you snore loudly (louder than talking or can be heard through closed doors)? Tobacco Use History Tobacco Use History - grand scribe: Tobacco Use History - grand scribe Tobacco Use Smoking Status Never smoker 04/03/25 15:27 Hx Tobacco Use No 04/03/25 15:27 Years Smoking Packs Smoked per Day Smoking Cessation Date was within the last 15 years Hx Smoking Cessation Date Hx Smoking Cessation Counseling Hematologic Medial History Hematologic Hx - grand scribe: Hematologic Medical Hx - skein spooler Hx of Blood Transfusion No 04/03/25 15:27 Hx of Transfusion in last 3 No 04/03/25 15:27 Months Date of Last Transfusion (if within last 3 months) Ever experience any problems No 04/03/25 15:27 with transfusion(s)? Specify any problems Hx of Preganancy in last 3 No 04/03/25 15:27 Months Nurse Filling Out Transfusion VCHRISTIN 04/03/25 15:27 & Questions: Date: 04/03/25 04/03/25 15:27 Time: 15:28 04/03/25 15:27 Patient unable to answer at this time (ie. confused, unrespo /Reproduction History /Reproductive History - grand scribe: /Reproductive Hx- grand scribe Hx Now No 04/03/25 15:27 Gestational Age (in weeks): EDC: Hx Hx Para Hx Section SAB No 04/03/25 15:27 Active Medications Active Medications: Current Medications Generic Name Dose Route Start Last Admin Trade Name Freq PRN Reason Stop Dose Admin Cefazolin Sodium 2 gm/ Sodium 110 mls @ 200 mls/hr 04/27/25 13:20 Chloride IV 04/27/25 13:52 INTRAOP ONE Sodium Chloride 1,000 mls @ 15 mls/hr 04/27/25 05:55 04/27/25 06:39 IV 15 mls/hr .Q48H RICK Administration PFSH Medical History Wears dentures Wears glasses Post-menopausal Depression Diabetes Walker as ambulation aid Arthritis History of renal disease Tremor Stroke/cerebrovascular accident Non-smoker BiPAP (biphasic positive airway pressure) dependence Sleep apnea Shortness of breath on exertion History of pain when walking History of edema History of echocardiogram Cardiology follow-up encounter Anemia in chronic kidney disease Secondary hyperparathyroidism Essential hypertension CKD (chronic kidney disease), stage IV Home Medications ?Medication ?Instructions ?Recorded ?Last Taken ?Type acetaminophen 325 mg capsule 325 mg PO PRN pain 02/23/25 Unknown History allopurinol 100 mg tablet 50 mg PO DAILY 02/23/25 04/26/25 History amlodipine 10 mg tablet 10 mg PO QDAY 02/23/25 04/27/25 History aspirin 81 mg tablet,delayed 81 mg PO QDAY 02/23/25 04/26/25 History release atorvastatin 40 mg tablet 40 mg PO QDAY 02/23/25 04/26/25 History buspirone 10 mg tablet 10 mg PO BID 02/23/25 04/26/25 History calcitriol 0.5 mcg capsule 0.5 mcg PO QDAY 02/23/25 04/26/25 History cholecalciferol (vitamin D3) 25 25 mcg PO QDAY 02/23/25 04/26/25 History mcg (1,000 unit) capsule clonidine HCl 0.2 mg tablet 0.2 mg PO TID 02/23/25 04/27/25 History furosemide 40 mg tablet (Lasix) 40 mg PO BID 02/23/25 04/26/25 History hydralazine 25 mg tablet 25 mg PO TID 02/23/25 04/27/25 History magnesium oxide 400 mg (241.3 mg 400 mg PO BID 02/23/25 04/26/25 History magnesium) tablet melatonin 3 mg capsule 3 mg PO HS 02/23/25 04/26/25 History ropinirole 0.25 mg tablet 0.5 mg PO QHS 02/23/25 04/26/25 History spironolactone 100 mg tablet 100 mg PO QDAY 02/23/25 04/26/25 History epoetin herbert-epbx 10,000 unit/mL 10,000 unit subcut .[id number] 04/06/25 Unknown History injection solution (Retacrit) Allergy/AdvReac Type Severity Reaction Status Date / Time No Known Allergies Allergy Verified 04/27/25 06:13 Surgical History Hx of bilateral cataract extraction Hx of eye surgery Hx of hernia repair Hx laparoscopic cholecystectomy Hx of hysterectomy History of renal stent Social History adopted: No current occupational exposures/hazards: No pets and animals: No history of recent travel: No Smoking Status: Never smoker Electronic Cigarette Use: not used second hand exposure: No alcohol intake: never substance use type: does not use diet: diabetic Review of Systems (Anesthesia) ROS Narrative System reviewed and no additional complaints, except as documented. Physical Exam Const alert and oriented x3 Orientation / Consciousness: awake Nutritional Appearance: obese
--- NOTE | 2025-04-27 07:23 | PCM.HP.STD ---
HPI - General HPI Narrative LUCHO BROWNE, is a 84 F who presents with CKD, not yet on dialysis. Mapping reveals adequate right basilic vein. [facility] Medical History Wears dentures Wears glasses Post-menopausal Depression Diabetes Walker as ambulation aid Arthritis History of renal disease Tremor Stroke/cerebrovascular accident Non-smoker BiPAP (biphasic positive airway pressure) dependence Sleep apnea Shortness of breath on exertion History of pain when walking History of edema History of echocardiogram Cardiology follow-up encounter Anemia in chronic kidney disease Secondary hyperparathyroidism Essential hypertension CKD (chronic kidney disease), stage IV Home Medications ?Medication ?Instructions ?Recorded ?Last Taken ?Type acetaminophen 325 mg capsule 325 mg PO PRN pain 02/23/25 Unknown History allopurinol 100 mg tablet 50 mg PO DAILY 02/23/25 04/26/25 History amlodipine 10 mg tablet 10 mg PO QDAY 02/23/25 04/27/25 History aspirin 81 mg tablet,delayed 81 mg PO QDAY 02/23/25 04/26/25 History release atorvastatin 40 mg tablet 40 mg PO QDAY 02/23/25 04/26/25 History buspirone 10 mg tablet 10 mg PO BID 02/23/25 04/26/25 History calcitriol 0.5 mcg capsule 0.5 mcg PO QDAY 02/23/25 04/26/25 History cholecalciferol (vitamin D3) 25 25 mcg PO QDAY 02/23/25 04/26/25 History mcg (1,000 unit) capsule clonidine HCl 0.2 mg tablet 0.2 mg PO TID 02/23/25 04/27/25 History furosemide 40 mg tablet (Lasix) 40 mg PO BID 02/23/25 04/26/25 History hydralazine 25 mg tablet 25 mg PO TID 02/23/25 04/27/25 History magnesium oxide 400 mg (241.3 mg 400 mg PO BID 02/23/25 04/26/25 History magnesium) tablet melatonin 3 mg capsule 3 mg PO HS 02/23/25 04/26/25 History ropinirole 0.25 mg tablet 0.5 mg PO QHS 02/23/25 04/26/25 History spironolactone 100 mg tablet 100 mg PO QDAY 02/23/25 04/26/25 History epoetin herbert-epbx 10,000 unit/mL 10,000 unit subcut .[id number] 04/06/25 Unknown History injection solution (Retacrit) Allergy/AdvReac Type Severity Reaction Status Date / Time No Known Allergies Allergy Verified 04/27/25 06:13 Surgical History Hx of bilateral cataract extraction Hx of eye surgery Hx of hernia repair Hx laparoscopic cholecystectomy Hx of hysterectomy History of renal stent Social History adopted: No current occupational exposures/hazards: No pets and animals: No history of recent travel: No Smoking Status: Never smoker Electronic Cigarette Use: not used second hand exposure: No alcohol intake: never substance use type: does not use diet: diabetic ROS Constitutional Constitutional: Denies chills, fever(s), frequent falls, lethargy or weakness Eyes Eyes: Denies blind spots, change in vision or loss of vision ENT HEENT: Denies bleeding gums, hoarseness or sore throat Cardiovascular Cardiovascular: Denies abdominal pain, bluish discoloration of hand/feet, chest pain with activity, claudication, cold extremities, cyanosis, dyspnea on exertion, erythema on extremities, irregular heart rhythm, leg edema, leg ulcers, numbness in extremities or weakness in extremities Respiratory/Chest Respiratory/Chest: Denies cough, excessive phlegm production, shortness of breath at rest, shortness of breath with exertion or wheezing Gastrointestinal Gastrointestinal: Denies anorexia, change in stool character, constipation, diarrhea, melena or rectal bleeding Genitourinary Genitourinary: Denies dysuria or hematuria Musculoskeletal Musculoskeletal: Denies abnormal gait Integumentary Integumentary: Reports other Details: ; Denies erythema, non-healing lesions or wounds Neurologic Neurologic: Denies abnormal speech, focal weakness, headache(s), loss of vision, numbness, paresthesias or sensory deficit Hematologic/Lymphatic Hematologic/Lymphatic: Denies easy bleeding, easy bruising or lymphadenopathy Vital Signs Vital Signs Vital Signs: 04/27/25 06:17 04/27/25 06:17 04/27/25 07:13 Temperature 97.8 F 97.8 F Temperature Source Temporal Pulse Rate 67 67 Respiratory Rate 18 18 Respiratory Pattern Normal Blood Pressure 165/46 H 165/46 H Blood Pressure Mean 85 Blood Pressure Source Monitor Blood Pressure Position Semi-Fowlers Blood Pressure Location Right Arm Pulse Ox 97 97 Oxygen Delivery Method Room Air Room Air Weight Weight: 147 lb 11.355 oz Body Mass Index (BMI) 26.2 Physical Exam Const alert, oriented x3, no apparent distress and healthy appearing General Appearance: cooperative; Negative for combative or lethargic Orientation / Consciousness: awake Exam Limitations: no limitations HEENT Head and Scalp: normocephalic and atraumatic Eyes EOMs intact bilaterally General Eye: normal appearance of both eyes Neck full ROM General: trachea midline Resp normal respiratory effort and no use of accessory muscles Effort and Inspection: Negative for labored, stridor or audible wheezes Cardio regular rate and regular rhythm Peripheral Pulses: radial pulses present Back/Spine Cervical Spine: cervical ROM normal Extremity full ROM, normal capillary refill and no clubbing, cyanosis or edema Skin no rashes or lesions noted and no wounds Neuro oriented x3, CN's II-XII intact bilaterally, no focal motor deficits and no sensory deficits noted Psych thought process normal, cooperative, affect normal, speech normal and activity/motor behavior normal Results Lab / Micro Data Labs: Laboratory Results - last 24 hr 04/27/25 06:12: POC Glucose 164 H Assessment & Plan Assessment/Plan (1) CKD (chronic kidney disease), stage IV: PLAN: -right stage I basilic fistula
[2025-04-27] MEDS: Cefazolin 2 GM in 0.9% Normal Saline (100mL Bag) 100 ML IV (07:29)
[2025-04-27] MEDS: Lidocaine 1% (20 ml mdv) 20 ML Vial (09:04)
[2025-04-27] MEDS: Bupivacaine 0.25% 30 ML Vial (09:04)
--- NOTE | 2025-04-27 09:05 | DCINST_ITS ---
Discharge Instructions Diet Discharge Diet: No restrictions Activity May shower in (days): 2 Lifting Restrictions: do not lift > 20 lbs with right arm for 3 weeks Additional Activity Instructions:: do not submerge incision for 3 weeks Dressing / Incision Call your doctor if your incision/area has: Sudden Increased Bleeding, Increased Pain/ Swelling, Increased Redness and Foul Smelling Discharge Call your doctor if you observe: Coldness, Increased Pain and Numbness or Tingling Remove Dressing in: 2 days Cleanse incision/area with: Soap & Water Follow Up Care Test Results: Test results from this visit will be discussed in further detail at your follow- up appointment, if applicable. Discharge Plan Admission Attending Provider: Jose C Ashraf Primary Care Provider: Gigi Deleon Instructions Print Language: Mongolian Discharge Orders/Prescriptions Prescriptions: New oxycodone 5 mg tablet 5 mg PO Q8H PRN (Reason: pain) 1 Days Qty: 3 0RF Continued allopurinol 100 mg tablet 50 mg PO DAILY acetaminophen 325 mg capsule 325 mg PO PRN amlodipine 10 mg tablet 10 mg PO QDAY atorvastatin 40 mg tablet 40 mg PO QDAY aspirin 81 mg tablet,delayed release (DR/EC) 81 mg PO QDAY buspirone 10 mg tablet 10 mg PO BID calcitriol 0.5 mcg capsule 0.5 mcg PO QDAY clonidine HCl 0.2 mg tablet 0.2 mg PO TID hydralazine 25 mg tablet 25 mg PO TID furosemide [Lasix] 40 mg tablet 40 mg PO BID magnesium oxide 400 mg (241.3 mg magnesium) tablet 400 mg PO BID melatonin 3 mg capsule 3 mg PO HS ropinirole 0.25 mg tablet 0.5 mg PO QHS Rx Instructions: administer 1-3 hours before bedtime spironolactone 100 mg tablet 100 mg PO QDAY cholecalciferol (vitamin D3) 25 mcg (1,000 unit) capsule 25 mcg PO QDAY Retacrit 10,000 unit/mL solution 10,000 unit subcut .[id number] Referrals / Follow Up: Gigi Deleon MD [Primary Care Provider] - Disposition Disposition (needs filled in before D/C Order can be placed): Home, Self Care
--- NOTE | 2025-04-27 09:30 | PCM.POST.ANE ---
Anesthesia: Postop Eval I Current Vital Signs Temperature: 97.5 F Pulse Rate: 79 Blood Pressure: 195/45 Respiratory Rate: 16 Pulse Ox: 95 Oxygen Delivery Method: Room Air Assessment Airway patent: Yes Spontaneous unlabored respirations: Yes Mental status: Awake and Calm nausea: No Vomiting: No Anesthesia Complication: No Fluid Hydration Crystalloid volume administer (ml): 800 Total IV fluid infused: 800 Progress Note Anesthesia document: Postop Eval 1 completed: Yes
[2025-04-27] MEDS: oxyCODONE 5 MG Tablet PO (10:11)
--- NOTE | 2025-04-27 11:33 | POSTOPAN2_ITS ---
Anesthesia Postop Eval I Sum Postop Eval Completion status Anesthesia document: Postop Eval 1 completed: Yes Anesthesia Postop Eval I Summary Anesthesia Postop Eval I Summary: Anesthesia Postop Eval I: Assessment Summary Airway patent Yes 04/27/25 09:31 CUSTOMER SALES SERVICE [email or web address] Spontaneous unlabored Yes 04/27/25 09:31 CUSTOMER SALES SERVICE MANAGER.[email or web address] respirations Mental status Awake,Calm 04/27/25 09:31 CUSTOMER SALES SERVICE [email or web address] nausea No 04/27/25 09:31 CUSTOMER SALES SERVICE [email or web address] Vomiting No 04/27/25 09:31 CUSTOMER SALES SERVICE [email or web address] Anesthesia Postop Eval I: Fluid Summary Crystalloid volume administer 800 04/27/25 09:31 CUSTOMER SALES SERVICE MANAGER.JBOR (ml) Colloids volume administered ( ml) Blood Product volume administered (ml) Total IV fluid infused 800 04/27/25 09:31 CUSTOMER SALES SERVICE MANAGER.JBOR Anesthesia Postop Eval I: Summary Notes Anesthesia Complication No 04/27/25 09:31 CUSTOMER SALES SERVICE MANAGER.[email or web address] Anesthesia Complication Comment: Post-operative progress note Anesthesia: Postop Eval II Evaluation Mental status: Awake Pain Level: 1 nausea: No Vomiting: No Complications Anesthesia Complication: No
--- NOTE | 2025-04-27 11:33 | PCM.POSTANE2 ---
Anesthesia Postop Eval I Sum Postop Eval Completion status Anesthesia document: Postop Eval 1 completed: Yes Anesthesia Postop Eval I Summary Anesthesia Postop Eval I Summary: Anesthesia Postop Eval I: Assessment Summary Airway patent Yes 04/27/25 09:31 COMPLAINT [email or web address] Spontaneous unlabored Yes 04/27/25 09:31 COMPLAINT [email or web address].[email or web address] respirations Mental status Awake,Calm 04/27/25 09:31 COMPLAINT INVESTIGATOR.[email or web address] nausea No 04/27/25 09:31 COMPLAINT [email or web address].[email or web address] Vomiting No 04/27/25 09:31 COMPLAINT [email or web address].[email or web address] Anesthesia Postop Eval I: Fluid Summary Crystalloid volume administer 800 04/27/25 09:31 COMPLAINT [email or web address].[email or web address] (ml) Colloids volume administered ( ml) Blood Product volume administered (ml) Total IV fluid infused 800 04/27/25 09:31 COMPLAINT [email or web address].JBOR Anesthesia Postop Eval I: Summary Notes Anesthesia Complication No 04/27/25 09:31 COMPLAINT [email or web address].[email or web address] Anesthesia Complication Comment: Post-operative progress note Anesthesia: Postop Eval II Evaluation Mental status: Awake Pain Level: 1 nausea: No Vomiting: No Complications Anesthesia Complication: No
--- NOTE | 2025-04-27 16:01 | PCM.OPRPT ---
Operative Report (Standard) Operative Information Date of Procedure: 04/27/25 Pre-Operative Diagnosis: Chronic kidney disease Post-Operative Diagnosis: Same Surgery/Procedure Performed: Right proximal radial to cephalic fistula creation rn embedded: Yes Plugger Worker: Nate Price Tasks completed by social work assistant: Opening, Closing, Opening & closing, Hemostasis: Tie and Retracting Type of Anesthesia: Local MAC, Local and MAC RN Documented Start/Stop Times: Operation Date: 04/27/25 07:30 Case Time Into Pre-Op 04/27/25 05:51 Out of Pre-Op 04/27/25 07:22 Anesthesia Start 04/27/25 07:27 Into Room 04/27/25 07:27 Procedure Start 04/27/25 07:56 Procedure End 04/27/25 09:14 Anesthesia End 04/27/25 09:21 Out of Room 04/27/25 09:21 Into Recovery 04/27/25 09:25 Out of Recovery 04/27/25 09:40 Into Phase II Recovery 04/27/25 09:42 Out of Phase II 04/27/25 10:50 Procedure Start Time: 07:55 Procedure Stop Time: 09:15 Select all DRAINS/GRAFTS/IMPLANTS that apply: None Estimated Blood Loss: 9 Specimen collected: No Description of surgery: HPI: Patient is an 84-year-old female with chronic kidney disease not yet on dialysis. She had preoperative vein mapping which revealed an adequate right basilic vein and a marginal right cephalic vein. She presents now for fistula creation. Description of procedure: Upon obtaining informed consent and verification correct patient procedure site the patient was taken to the operating where she was positioned prepped and draped in usual sterile fashion. Timeout was performed and moderate sedation ministered by anesthesia. Ultrasound was used to evaluate to the veins of the right upper extremity and the cephalic vein was found to be of adequate caliber and in close proximity to the brachial artery just distal to the antecubital crease. Skin overlying the vessels at this location were anesthetized 1% lidocaine and quarter percent Marcaine and transverse incision made 1 fingerbreadth distal to the antecubital crease. Bovie was then used to dissect down through the subcutaneous tissue until the vein was visualized. At this point sharp resection was used to dissect free with sidebranches ligated with silk ties and divided. The deep vein fish hatchery assistant was large caliber healthy vessel and had adequate length to reach the artery for any intended fistula creation so this was dissected free down to its insertion into the deep system. Next Bovie was used to dissect down to the fascia which was then incised exposing the neurovascular bundle. Sharp dissection was used to dissect free the brachial artery and its bifurcation with right angle used to place vessel loop around each vessel individually. The patient was then heparinized allowed to circulate for 3 minutes. The remaining branches of the vein fish hatchery assistant were then ligated with silk ties and the vessel divided. It was then dilated serially up to 3 and half millimeters and flushed with heparinized saline. The brachial arteries bifurcation were then occluded with Vesseloops and longitudinal arteriotomy created with 11 blade on the proximal radial artery extended with Andrade scissors. The vein was then beveled to match the arteriotomy and anastomosis performed using a 6-0 Prolene in a running fashion. Prior to completing suture line vessels are backbled after cleaning a suture line clamps were removed and satisfactory stasis was observed. There is a palpable thrill in the fistula and a palpable radial pulse of the wrist. Heparin was then reversed with protamine and the incision inspected for hemostasis. The incision was then closed with 3-0 Vicryl followed by 4 Monocryl and Dermabond for the skin. The patient was then taken to the recovery room with plan discharged to home Surgical Findings: +radial pulse, +thrill Complications Complications: No
== END 2025-04-27 10:50 | disposition home or self-care (01) ==
LOC: SDC 05:40 → AC 05:53
PROVIDERS: PCP Internal Medicine; Referring Provider Surgery Trauma Surgery; Visit Provider Surgery Trauma Surgery
PROC: (CPT 36818; principal; 2025-04-27 07:15)
DX: Z49.01 Encounter for fitting and adjustment of extracorporeal dialysis catheter (principal); N18.4 Chronic kidney disease, stage 4 (severe); E11.22 Type 2 diabetes mellitus with diabetic chronic kidney disease; Z79.82 Long term (current) use of aspirin; I12.9 Hypertensive chronic kidney disease with stage 1 through stage 4 chronic kidney disease, or unspecified chronic kidney disease; Z79.899 Other long term (current) drug therapy
CPT/HCPCS: 36818; 82962; A4648; J2405

== ENCOUNTER → 2025-05-12 | Outpatient (CLI) | payer MEDICARE, OTHER, SELFPAY ==
[2025-05-12 15:18] LABS: Hematocrit 31.2 % (37-47); Hemoglobin 10.4 g/dL (12.0-15.0); Mean Corp Hgb Conc 33.3 g/dL (32-36); Mean Corpuscular Volume 91.5 fL (81-99); Mean Platelet Vol. 11.2 fl (6.2-12.0); Platelet Count 160 K/mm3 (150-450); RBC Distribution Width CV 14.8 % (11.6-14.6); RBC Distribution Width SD 48.6 fl (35.1-43.9); Red Blood Count 3.41 M/mm3 (4.2-5.4); White Blood Count 7.6 K/mm3 (4.4-11.0)
[2025-05-12 16:43] LABS: Anion Gap 13 (5-15); BUN 55 mg/dL (4-19); BUN/Creat Ratio 18.2 RATIO (10-20); Calcium,Total 12.5 mg/dL (7.6-11.0); Carbon Dioxide 23.9 mmol/L (21.0-32.0); Chloride 98 mmol/L (98-108); Glucose 157 mg/dL (70-99); Potassium 4.8 mmol/L (3.3-5.1)
== END | disposition home or self-care (01) ==
LOC: LAB 14:42
PROVIDERS: PCP Internal Medicine; Referring Provider Physician Assistant; Visit Provider Physician Assistant
DX: N18.4 Chronic kidney disease, stage 4 (severe) (principal); D63.1 Anemia in chronic kidney disease
CPT/HCPCS: 36415; 80048; 85027

== ENCOUNTER → 2025-09-15 | Outpatient (CLI) | payer MEDICARE, OTHER, SELFPAY ==
--- NOTE | 2025-09-15 09:39 | AVDS_ITS ---
Reason For Study Reason For Study: Access difficulties RIGHT Inflow, 272.3/110.4 cm/sec. Inflow, 887.8 ml/min. Prox anastamosis, 596.8/230.7 cm/sec. Prox anastamosis, 1157 ml/min. Cephalic Vein Prox graft, 53.5/5.6 cm/sec. Prox graft, 310.7 ml/min. Mid graft, 31.4/6.9 cm/sec. Mid graft, 227.7 ml/min. Distal graft, 38/8.4 cm/sec. Distal graft, 312.2 ml/min. Outflow, 42.4/8.4 cm/sec. Outflow, 216.7 ml/min. Basilic Vein Prox graft, 110.7/32.1 cm/sec. Prox graft, 342.2 ml/min. Mid graft, 99.7/46.8 cm/sec. Mid graft, 422.7/ml/min. Distal graft, 88.7/59.5 cm/sec. Distal graft, 380.1 ml/min. Outflow, 81.4/41.3 cm/sec. Outflow, 546.6 ml/min. VL/AV Fistula/Dialysis Graft Scan Interpretation Summary Patent right upper extremity fistula with dual outflow via cephalic and basilic veins. Small caliber and suboptimal flow volumes in both vessels. Ordering Physician: Lindsey Simon Referring Physician: Gigi Deleon Performed By: Janie Ramirez RVT
== END | disposition home or self-care (01) ==
PROVIDERS: PCP Student in an Organized Health Care Education/Training Program; Referring Provider Physician Assistant; Visit Provider Physician Assistant
DX: T82.590A Other mechanical complication of surgically created arteriovenous fistula, initial encounter (principal); I77.0 Arteriovenous fistula, acquired; Y71.8 Miscellaneous cardiovascular devices associated with adverse incidents, not elsewhere classified
CPT/HCPCS: 93990

== ENCOUNTER 2025-10-13 11:27 | Day surgery (SDC) | payer MEDICARE, OTHER, SELFPAY ==
--- NOTE | 2025-10-05 14:43 | PAT.ANESEVAL ---
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 When Was Last Pacemaker Check QUESTION #4 FULL TEXT: You/Your Family Experience fever (hyperthermia) with Anesthesia Last Oral Intake Last Oral intake: Last Oral Intake NPO since Meds taken in AM with sips of water? Meds patient instructed to take am of surgery PONV PONV - sales project manager: PONV - sales project manager Female Yes 09/24/25 10:51 HX of Motion Sickness No 09/24/25 10:51 HX of N/V After Surgery No 09/24/25 10:51 Non-Smoker Yes 09/24/25 10:51 Duration of Surgery greater Yes 09/24/25 10:51 than 60 minutes Number of Risk Factors 3 09/24/25 10:51 PONV Score Moderate Risk 09/24/25 10:51 Height & Weight Height & Weight: Anesthesia: Height & Weight Height 5 ft 3 in 04/27/25 06:17 Respiratory Assessment Respiratory Assessment - sales project manager: Respiratory Tract Infection Hx - sales project manager Hx Respiratory Tract Infection No 09/24/25 10:51 STOP Sleep Apnea STOP Sleep Apnea - sales project manager: STOP Sleep Apnea - sales project manager Hx Hypertension Yes: CONTROLLED ON MED 09/24/25 10:51 Hx Sleep Apnea No 09/24/25 10:51 CPAP BIPAP Do you snore loudly (louder No 09/24/25 10:51 than talking or can be heard Do you often feel tired/ Yes 09/24/25 10:51 fatigued/ sleepy during daytime? Has anyone observed you stop No 09/24/25 10:51 breathing during sleep? STOP Results Positive 09/24/25 10:51 QUESTION #5 FULL TEXT : Do you snore loudly (louder than talking or can be heard through closed doors)? 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 Specify any problems Hx of Preganancy in last 3 No 09/24/25 10:51 Months Nurse Filling Out Transfusion DSCHRIBER 09/24/25 10:51 & Questions: Date: 09/24/25 09/24/25 10:51 Time: 10:53 09/24/25 10:51 Patient unable to answer at this time (ie. confused, unrespo /Reproduction History /Reproductive History - sales project manager: /Reproductive Hx- sales project manager Hx Now No 09/24/25 10:51 Gestational Age (in weeks): EDC: Hx Hx Para Hx Section SAB No 09/24/25 10:51 Does the father of the baby or his family experience fever w Father of the baby Malignant Hypertension history comment [facility] Medical History (Updated 10/05/25 @ 11:53 by Smiley Villarreal) Lives in assisted living facility Wears dentures Wears glasses Post-menopausal Depression Diabetes Walker as ambulation aid Arthritis History of renal disease Tremor Stroke/cerebrovascular accident Non-smoker BiPAP (biphasic positive airway pressure) dependence Shortness of breath on exertion History of pain when walking History of edema History of echocardiogram Cardiology follow-up encounter Anemia in chronic kidney disease Secondary hyperparathyroidism Essential hypertension CKD (chronic kidney disease), stage IV Home Medications ?Medication ?Instructions ?Recorded ?Last Taken ?Type allopurinol 100 mg tablet 50 mg PO DAILY 02/23/25 04/26/25 History aspirin 81 mg tablet,delayed 81 mg PO QDAY 02/23/25 04/26/25 History release atorvastatin 40 mg tablet 40 mg PO QHS 02/23/25 04/26/25 History buspirone 10 mg tablet 10 mg PO BID 02/23/25 04/26/25 History clonidine HCl 0.2 mg tablet 0.2 mg PO TID 02/23/25 04/27/25 History furosemide 40 mg tablet (Lasix) 40 mg PO BID 02/23/25 04/26/25 History hydralazine 25 mg tablet 25 mg PO TID 02/23/25 04/27/25 History magnesium oxide 400 mg (241.3 mg 400 mg PO BID 02/23/25 04/26/25 History magnesium) tablet ropinirole 0.25 mg tablet 0.5 mg PO QHS 02/23/25 04/26/25 History metolazone 5 mg tablet 5 mg PO BID 07/15/25 Unknown History acetaminophen 325 mg capsule 650 mg PO HS pain 09/08/25 Unknown History spironolactone 100 mg tablet 100 mg PO QAM 09/08/25 Unknown History (Aldactone) lidocaine-prilocaine 2.5 %-2.5 % 1 applic topical MOWEFR 10/05/25 Unknown History topical cream Allergy/AdvReac Type Severity Reaction Status Date / Time No Known Allergies Allergy Verified 09/24/25 10:49 Surgical History (Updated 09/24/25 @ 11:04 by Smiley Villarreal) Hx of arteriovenostomy for renal dialysis Hx of bilateral cataract extraction Hx of eye surgery Hx of hernia repair Hx laparoscopic cholecystectomy Hx of hysterectomy History of renal stent Social History adopted: No current occupational exposures/hazards: No pets and animals: No history of recent travel: No Smoking Status: Never smoker Electronic Cigarette Use: not used second hand exposure: No alcohol intake: never substance use type: does not use diet: diabetic Audit: Pertinent Findings Pertinent Findings Additional pertinent findings: Based on preprocedure evaluations from April or patient was cleared for surgery, she has had few anesthetics done since then and no other preanesthetic evaluations Recommendation Anesthesia Recommendation Anesthesia recommendation: OPTIMIZED for anesthesia (Based on preprocedure evaluations from April or patient was cleared for surgery, she has had few anesthetics done since then and no other preanesthetic evaluations)
--- NOTE | 2025-10-09 12:55 | PAT.ANE_ITS ---
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 When Was Last Pacemaker Check QUESTION #4 FULL TEXT: You/Your Family Experience fever (hyperthermia) with Anesthesia Last Oral Intake Last Oral intake: Last Oral Intake NPO since Meds taken in AM with sips of water? Meds patient instructed to take am of surgery PONV PONV - livestock sales representative: PONV - livestock sales representative Female Yes 10/05/25 15:03 HX of Motion Sickness No 10/05/25 15:03 HX of N/V After Surgery No 10/05/25 15:03 Non-Smoker Yes 10/05/25 15:03 Duration of Surgery greater Yes 10/05/25 15:03 than 60 minutes Number of Risk Factors 3 10/05/25 15:03 PONV Score Moderate Risk 10/05/25 15:03 Height & Weight Height & Weight: Anesthesia: Height & Weight Height 5 ft 3 in 04/27/25 06:17 Respiratory Assessment Respiratory Assessment - livestock sales representative: Respiratory Tract Infection Hx - livestock sales representative Hx Respiratory Tract Infection No 10/05/25 15:03 STOP Sleep Apnea STOP Sleep Apnea - livestock sales representative: STOP Sleep Apnea - livestock sales representative Hx Hypertension Yes: CONTROLLED ON MED 10/05/25 15:03 Hx Sleep Apnea Yes 10/05/25 15:03 CPAP No 10/05/25 15:03 BIPAP Yes 10/05/25 15:03 Do you snore loudly (louder No 10/05/25 15:03 than talking or can be heard Do you often feel tired/ Yes 10/05/25 15:03 fatigued/ sleepy during daytime? Has anyone observed you stop No 10/05/25 15:03 breathing during sleep? STOP Results Positive 10/05/25 15:03 QUESTION #5 FULL TEXT : Do you snore loudly (louder than talking or can be heard through closed doors)? 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 Specify any problems Hx of Preganancy in last 3 No 10/05/25 15:03 Months Nurse Filling Out Transfusion DSCHRIBER 10/05/25 15:03 & Questions: Date: 10/05/25 10/05/25 15:03 Time: 15:03 10/05/25 15:03 Patient unable to answer at this time (ie. confused, unrespo /Reproduction History /Reproductive History - livestock sales representative: /Reproductive Hx- livestock sales representative Hx Now No 10/05/25 15:03 Gestational Age (in weeks): EDC: Hx Hx Para Hx Section SAB No 10/05/25 15:03 Does the father of the baby or his family experience fever w Father of the baby Malignant Hypertension history comment [facility] Medical History (Updated 10/05/25 @ 11:53 by Smiley Villarreal) Lives in assisted living facility Wears dentures Wears glasses Post-menopausal Depression Diabetes Walker as ambulation aid Arthritis History of renal disease Tremor Stroke/cerebrovascular accident Non-smoker BiPAP (biphasic positive airway pressure) dependence Shortness of breath on exertion History of pain when walking History of edema History of echocardiogram Cardiology follow-up encounter Anemia in chronic kidney disease Secondary hyperparathyroidism Essential hypertension CKD (chronic kidney disease), stage IV Home Medications ?Medication ?Instructions ?Recorded ?Last Taken ?Type allopurinol 100 mg tablet 50 mg PO DAILY 02/23/25 06/12/30 History aspirin 81 mg tablet,delayed 81 mg PO QDAY 02/23/25 History release atorvastatin 40 mg tablet 40 mg PO QHS 02/23/25 History buspirone 10 mg tablet 10 mg PO BID 02/23/25 History clonidine HCl 0.2 mg tablet 0.2 mg PO TID 02/23/25 History furosemide 40 mg tablet (Lasix) 40 mg PO BID 02/23/25 04/26/25 History hydralazine 25 mg tablet 25 mg PO TID 02/23/25 History magnesium oxide 400 mg (241.3 mg 400 mg PO BID 5 04/26/25 History magnesium) tablet ropinirole 0.25 mg tablet 0.5 mg PO QHS 02/23/2504/26 History metolazone 5 mg tablet 5 mg PO BID 07/15/25 Unknown History acetaminophen 325 mg capsule 650 mg PO HS pain 5 Unknown History spironolactone 100 mg tablet 100 mg PO QAM 09/08/25 Un known History (Aldactone) lidocaine-prilocaine 2.5 %-2.5 % 1 applic topical MOWE FR 10/05/25 Unknown History topical cream Allergy/AdvReac Type Severity Reaction Status Date / Time No Known Allergies Allergy Verified 09/24/25 10:49 Surgical History (Updated 09/24/25 @ 11:04 by Smiley Villarreal) Hx of arteriovenostomy for renal dialysis Hx of bilateral cataract extraction Hx of eye surgery Hx of hernia repair Hx laparoscopic cholecystectomy Hx of hysterectomy History of renal stent Social History adopted: No current occupational exposures/hazards: No pets and animals: No history of recent travel: No Smoking Status: Never smoker Electronic Cigarette Use: not used second hand exposure: No alcohol intake: never substance use type: does not use diet: diabetic Audit: Pertinent Findings HISTORY of Pertinent Findings History of Pertinent Findings: Additional Pertinent Findings Additional pertinent findings Based on preprocedure 10/05/25 15:04 evaluations from April or patient was cleared for surgery, she has had few anesthetics done since then and no other preanesthetic evaluations Pertinent Findings Additional pertinent findings: Creatinine over 2. To be expected due to patient's end-stage renal disease requiring dialysis. Recommendation Anesthesia Recommendation Anesthesia recommendation: OPTIMIZED for anesthesia
[2025-10-13] VITALS (9 sets, daily range): BP systolic 147–163; BP diastolic 33–89; PULSE 62–73; RESP 16; TEMP 36.6–36.9; O2SAT 97–100; BMI 37.2
[2025-10-13] MEDS: 0.9% Normal Saline (500mL Bag) 500 ML 15 ML IV (12:37)
--- NOTE | 2025-10-13 12:47 | PRE.ANES_ITS ---
ASA Classification* ASA Classification ASA Classification: 3 Assessment & Plan Anesthesia* Anesthesia Assessment Anesthesia Assessment: Discussed sedation and/or anesthesia options, risks, benefits, and alternatives with patient/parents/legal guardian/POA. Questions invited. The patient/parents/legal guardian/POA seems to understand and agrees to proceed with anesthesia plan. Reviewed the physical assessment, medical history, allergy history and patient home medications list prior to surgery/procedure/anesthetic and documented any changes. Performed airway and anesthesia risk assessments. Anesthesia Type Anesthesia Type: General, MAC and Block History Source History Obtained from:: Patient, Chart and Significant Other (Daughter in the room) Anesthesia Focused Assessment* Temperature: 98.5 F Pulse Rate: 62 Blood Pressure: 160/36 Respiratory Rate: 16 Pulse Ox: 100 Oxygen Delivery Method: Room Air Airway Assessment Mouth opens: >3 cm Mallampati Score: II Teeth Condition: Dentures Neck Range of motion (ROM): Limited ROM Labs Anesthesia Preop lab: CBC WBC, (4.4-11.0) 7.6 K/mm3 05/12/25, 14:46 RBC, (4.2-5.4) 3.41 M/mm3 L 05/12/25, 14:46 Hgb, (12.0-15.0) 10.4 g/dL L 05/12/25, 14:46 Hct, (37-47) 31.2 % L 05/12/25, 14:46 Plt Count, (150-450) 160 K/mm3 05/12/25, 14:46 CHEMISTRY Potassium, (3.3-5.1) 4.8 mmol/L 05/12/25, 14:46 Sodium, (133-145) 135 mmol/L 05/12/25, 14:46 BUN, (4-19) 55 mg/dL H 05/12/25, 14:46 Creatinine, (0.70-1.20) 3.02 mg/dL H 05/12/25, 14:46 Glucose, (70-99) 157 mg/dL H 05/12/25, 14:46 POC Glucose, (74-106) 164 mg/dL H 04/27/25, 06:12 TSH, (0.358-3.74) 3.13 uIU/mL 07/02/19, 10:51 COAG Pre-Assessment Diagnosis/Proposed Procedure Planned Operative Procedure(s): AV fistula revision Anesthesia History 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 When Was Last Pacemaker Check QUESTION #4 FULL TEXT: You/Your Family Experience fever (hyperthermia) with Anesthesia Last Oral Intake Last Oral intake: Last Oral Intake NPO since 07:00 10/13/25 12:13 Meds taken in AM with sips of Yes 10/13/25 12:13 water? Meds patient instructed to take am of surgery PONV PONV - electronic news gathering editor: PONV - electronic news gathering editor Female Yes 10/05/25 15:03 HX of Motion Sickness No 10/05/25 15:03 HX of N/V After Surgery No 10/05/25 15:03 Non-Smoker Yes 10/05/25 15:03 Duration of Surgery greater Yes 10/05/25 15:03 than 60 minutes Number of Risk Factors 3 10/05/25 15:03 PONV Score Moderate Risk 10/05/25 15:03 Height & Weight Height & Weight: Anesthesia: Height & Weight Height 5 ft 3 in 10/13/25 12:13 Weight: 95.3 kg 10/13/25 12:13 Body Mass Index (BMI) 37.2 10/13/25 12:13 Respiratory Assessment Respiratory Assessment - electronic news gathering editor: Respiratory Tract Infection Hx - electronic news gathering editor Hx Respiratory Tract Infection No 10/05/25 15:03 STOP Sleep Apnea STOP Sleep Apnea - electronic news gathering editor: STOP Sleep Apnea - electronic news gathering editor Hx Hypertension Yes: CONTROLLED ON MED 10/05/25 15:03 Hx Sleep Apnea Yes 10/05/25 15:03 CPAP No 10/05/25 15:03 BIPAP Yes 10/05/25 15:03 Do you snore loudly (louder No 10/05/25 15:03 than talking or can be heard Do you often feel tired/ Yes 10/05/25 15:03 fatigued/ sleepy during daytime? Has anyone observed you stop No 10/05/25 15:03 breathing during sleep? STOP Results Positive 10/05/25 15:03 QUESTION #5 FULL TEXT : Do you snore loudly (louder than talking or can be heard through closed doors)? 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 Specify any problems Hx of Preganancy in last 3 No 10/05/25 15:03 Months Nurse Filling Out Transfusion DSCHRIBER 10/05/25 15:03 & Questions: Date: 10/05/25 10/05/25 15:03 Time: 15:03 10/05/25 15:03 Patient unable to answer at this time (ie. confused, unrespo /Reproduction History /Reproductive History - electronic news gathering editor: /Reproductive Hx- electronic news gathering editor Hx Now No 10/05/25 15:03 Gestational Age (in weeks): EDC: Hx Hx Para Hx Section SAB No 10/05/25 15:03 Does the father of the baby or his family experience fever w Father of the baby Malignant Hypertension history comment Active Medications Active Medications: Current Medications Generic Name Dose Route Start Last Admin Trade Name Freq PRN Reason Stop Dose Admin Cefazolin Sodium 2 gm/ Sodium 110 mls @ 200 mls/hr 10/13/25 13:30 Chloride IV 10/13/25 14:02 INTRAOP ONE Sodium Chloride 500 mls @ 0 mls/hr 10/13/25 11:45 10/13/25 12:37 IV 15 mls/hr .Q0M RICK Administration KVO PFSH Medical History (Updated 10/05/25 @ 11:53 by Smiley Villarreal) Lives in assisted living facility Wears dentures Wears glasses Post-menopausal Depression Diabetes Walker as ambulation aid Arthritis History of renal disease Tremor Stroke/cerebrovascular accident Non-smoker BiPAP (biphasic positive airway pressure) dependence Shortness of breath on exertion History of pain when walking History of edema History of echocardiogram Cardiology follow-up encounter Anemia in chronic kidney disease Secondary hyperparathyroidism Essential hypertension CKD (chronic kidney disease), stage IV Home Medications ?Medication ?Instructions ?Recorded ?Last Taken ?Type allopurinol 100 mg tablet 50 mg PO DAILY 02/23/2504/06 History aspirin 81 mg tablet,delayed 81 mg PO QDAY 02/23/25 History release atorvastatin 40 mg tablet 40 mg PO QHS 02/23/25 History buspirone 10 mg tablet 10 mg PO BID 02/23/25 07:30 History clonidine HCl 0.2 mg tablet 0.2 mg PO TID 02/23/2507/30 07:30 History furosemide 40 mg tablet (Lasix) 40 mg PO BID 02/23/25 04/26/25 History hydralazine 25 mg tablet 25 mg PO TID 02/23/25 07:30 History magnesium oxide 400 mg (241.3 mg 400 mg PO BID 5 04/26/25 History magnesium) tablet ropinirole 0.25 mg tablet 0.5 mg PO QHS 02/23/2504/26 History metolazone 5 mg tablet 5 mg PO BID 07/15/25 Unknown History acetaminophen 325 mg capsule 650 mg PO HS pain 5 Unknown History spironolactone 100 mg tablet 100 mg PO QAM 09/08/25 Un known History (Aldactone) lidocaine-prilocaine 2.5 %-2.5 % 1 applic topical MOWE FR 10/05/25 Unknown History topical cream Allergy/AdvReac Type Severity Reaction Status Date / Time No Known Allergies Allergy Verified 10/13/25 12:04 Surgical History (Updated 09/24/25 @ 11:04 by mSiley Villarreal) Hx of arteriovenostomy for renal dialysis Hx of bilateral cataract extraction Hx of eye surgery Hx of hernia repair Hx laparoscopic cholecystectomy Hx of hysterectomy History of renal stent Social History adopted: No current occupational exposures/hazards: No pets and animals: No history of recent travel: No Smoking Status: Never smoker Electronic Cigarette Use: not used second hand exposure: No alcohol intake: never substance use type: does not use diet: diabetic Review of Systems (Anesthesia) ROS Narrative System reviewed and no additional complaints, except as documented.
--- NOTE | 2025-10-13 13:33 | PCM.HP.STD ---
HPI - General HPI Narrative LUCHO BROWNE, is a 84 F who presents with a right upper arm fistula difficult to access due to depth. Also has several large branches. [facility] Medical History Lives in assisted living facility Wears dentures Wears glasses Post-menopausal Depression Diabetes Walker as ambulation aid Arthritis History of renal disease Tremor Stroke/cerebrovascular accident Non-smoker BiPAP (biphasic positive airway pressure) dependence Shortness of breath on exertion History of pain when walking History of edema History of echocardiogram Cardiology follow-up encounter Anemia in chronic kidney disease Secondary hyperparathyroidism Essential hypertension CKD (chronic kidney disease), stage IV Home Medications ?Medication ?Instructions ?Recorded ?Last Taken ?Type allopurinol 100 mg tablet 50 mg PO DAILY 02/23/25 04/26/25 History aspirin 81 mg tablet,delayed 81 mg PO QDAY 02/23/25 04/26/25 History release atorvastatin 40 mg tablet 40 mg PO QHS 02/23/25 04/26/25 History buspirone 10 mg tablet 10 mg PO BID 02/23/25 10/13/25 07:30 History clonidine HCl 0.2 mg tablet 0.2 mg PO TID 02/23/25 10/13/25 07:30 History furosemide 40 mg tablet (Lasix) 40 mg PO BID 02/23/25 04/26/25 History hydralazine 25 mg tablet 25 mg PO TID 02/23/25 10/13/25 07:30 History magnesium oxide 400 mg (241.3 mg 400 mg PO BID 02/23/25 04/26/25 History magnesium) tablet ropinirole 0.25 mg tablet 0.5 mg PO QHS 02/23/25 04/26/25 History metolazone 5 mg tablet 5 mg PO BID 07/15/25 Unknown History acetaminophen 325 mg capsule 650 mg PO HS pain 09/08/25 Unknown History spironolactone 100 mg tablet 100 mg PO QAM 09/08/25 Unknown History (Aldactone) lidocaine-prilocaine 2.5 %-2.5 % 1 applic topical MOWEFR 10/05/25 Unknown History topical cream Allergy/AdvReac Type Severity Reaction Status Date / Time No Known Allergies Allergy Verified 10/13/25 12:04 Surgical History Hx of arteriovenostomy for renal dialysis Hx of bilateral cataract extraction Hx of eye surgery Hx of hernia repair Hx laparoscopic cholecystectomy Hx of hysterectomy History of renal stent Social History adopted: No current occupational exposures/hazards: No pets and animals: No history of recent travel: No Smoking Status: Never smoker Electronic Cigarette Use: not used second hand exposure: No alcohol intake: never substance use type: does not use diet: diabetic ROS Constitutional Constitutional: Denies chills, fever(s), frequent falls, lethargy or weakness Eyes Eyes: Denies blind spots, change in vision or loss of vision ENT HEENT: Denies bleeding gums, hoarseness or sore throat Cardiovascular Cardiovascular: Denies abdominal pain, bluish discoloration of hand/feet, chest pain with activity, claudication, cold extremities, cyanosis, dyspnea on exertion, erythema on extremities, irregular heart rhythm, leg edema, leg ulcers, numbness in extremities or weakness in extremities Respiratory/Chest Respiratory/Chest: Denies cough, excessive phlegm production, shortness of breath at rest, shortness of breath with exertion or wheezing Gastrointestinal Gastrointestinal: Denies anorexia, change in stool character, constipation, diarrhea, melena or rectal bleeding Genitourinary Genitourinary: Denies dysuria or hematuria Musculoskeletal Musculoskeletal: Denies abnormal gait Integumentary Integumentary: Reports other Details: ; Denies erythema, non-healing lesions or wounds Neurologic Neurologic: Denies abnormal speech, focal weakness, headache(s), loss of vision, numbness, paresthesias or sensory deficit Hematologic/Lymphatic Hematologic/Lymphatic: Denies easy bleeding, easy bruising or lymphadenopathy Vital Signs Vital Signs Vital Signs: 10/13/25 12:13 10/13/25 12:13 10/13/25 12:13 Temperature 98.5 F Temperature Source Temporal Pulse Rate 62 Respiratory Rate 16 Respiratory Pattern Normal Blood Pressure 160/36 H Blood Pressure Mean 77 Blood Pressure Source Monitor Blood Pressure Position Semi-Fowlers Blood Pressure Location Left Forearm Baseline BP 160/36 Pulse Ox 100 Oxygen Delivery Method Room Air 10/13/25 12:49 Temperature 98.5 F Temperature Source Pulse Rate 62 Respiratory Rate 16 Respiratory Pattern Blood Pressure 160/36 H Blood Pressure Mean Blood Pressure Source Blood Pressure Position Blood Pressure Location Baseline BP Pulse Ox 100 Oxygen Delivery Method Room Air Weight Weight: 210 lb 1.608 oz Body Mass Index (BMI) 37.2 Physical Exam Const alert, oriented x3, no apparent distress and healthy appearing General Appearance: cooperative; Negative for combative or lethargic Orientation / Consciousness: awake Exam Limitations: no limitations HEENT Head and Scalp: normocephalic and atraumatic Eyes EOMs intact bilaterally General Eye: normal appearance of both eyes Neck full ROM General: trachea midline Resp normal respiratory effort and no use of accessory muscles Effort and Inspection: Negative for labored, stridor or audible wheezes Cardio regular rate and regular rhythm Peripheral Pulses: brachial pulses present and radial pulses present Back/Spine Cervical Spine: cervical ROM normal Extremity full ROM, normal capillary refill and no clubbing, cyanosis or edema Skin no rashes or lesions noted and no wounds Neuro oriented x3, CN's II-XII intact bilaterally, no focal motor deficits and no sensory deficits noted Psych thought process normal, cooperative, affect normal, speech normal and activity/motor behavior normal Results Lab / Micro Data Labs: Laboratory Results - last 24 hr 10/13/25 12:45: POC Glucose 127 H Assessment & Plan Assessment/Plan (1) Dialysis AV fistula malfunction: QUALIFIERS: Encounter type: subsequent encounter Qualified Code(s): T82.590D - Other mechanical complication of surgically created arteriovenous fistula, subsequent encounter PLAN: -elevation/transposition
[2025-10-13] MEDS: Cefazolin 1 GM/5 ML Vial 2 GM IV (13:40)
[2025-10-13] MEDS: Midazolam 2 MG/2 ML Syringe 0.5 MG IV (13:45)
[2025-10-13] MEDS: fentaNYL 100 MCG/2 ML Ampul 25 MCG IV (13:59)
[2025-10-13] MEDS: Lidocaine 1% (20 ml mdv) 20 ML Vial 10 ML INFILT (14:07)
[2025-10-13] MEDS: 0.9% Normal Saline (1000mL) 400 ML IV (14:08)
--- NOTE | 2025-10-13 15:17 | EX.PCM.DISCH ---
Discharge Instructions Diet Discharge Diet: Renal Diet Activity Lifting Restrictions: do not lift > 20 lbs with right arm for 3 weeks Additional Activity Instructions:: do not submerge incision for 3 weeks Dressing / Incision Call your doctor if your incision/area has: Sudden Increased Bleeding, Increased Pain/ Swelling, Increased Redness and Foul Smelling Discharge Remove Dressing in: 2 days Cleanse incision/area with: Soap & Water Follow Up Care Test Results: Test results from this visit will be discussed in further detail at your follow-up appointment, if applicable. Discharge Plan Admission Attending Provider: Jose C Ashraf Primary Care Provider: Mari Ragland Consulting Providers: Tamiko Sneed Instructions Print Language: Kinyarwanda Discharge Orders/Prescriptions Prescriptions: New oxycodone 5 mg tablet 5 mg PO Q8H PRN (Reason: pain) 2 Days Qty: 6 0RF Continued allopurinol 100 mg tablet 50 mg PO DAILY atorvastatin 40 mg tablet 40 mg PO QHS aspirin 81 mg tablet,delayed release (DR/EC) 81 mg PO QDAY buspirone 10 mg tablet 10 mg PO BID clonidine HCl 0.2 mg tablet 0.2 mg PO TID hydralazine 25 mg tablet 25 mg PO TID furosemide [Lasix] 40 mg tablet 40 mg PO BID magnesium oxide 400 mg (241.3 mg magnesium) tablet 400 mg PO BID ropinirole 0.25 mg tablet 0.5 mg PO QHS Rx Instructions: administer 1-3 hours before bedtime acetaminophen 325 mg capsule 650 mg PO HS metolazone 5 mg tablet 5 mg PO BID spironolactone [Aldactone] 100 mg tablet 100 mg PO QAM lidocaine-prilocaine 2.5-2.5 % cream 1 applic topical MOWEFR Patient Comments: RIGHT ARM FISTULA PRIOR TO DIALYSIS Referrals / Follow Up: Mari Ragland MD [Primary Care Provider, Internal Medicine] Disposition Disposition (needs filled in before D/C Order can be placed): Home, Self Care
--- NOTE | 2025-10-13 15:51 | OP.PCM_ITS ---
Operative Report (Standard) Operative Information Date of Procedure: 10/13/25 Pre-Operative Diagnosis: Difficulty cannulating right upper arm cephalic fistula due to excessive depth Post-Operative Diagnosis: Same Surgery/Procedure Performed: Transposition of right upper arm cephalic vein fistula vocal music instructor: Yes Plastic Dolls Mold Filler: Heidi Vale Tasks completed by first line supervisor: Opening, Closing, Opening & closing, Hemostasis: Tie, Hemostasis: Electrocautery and Retracting Type of Anesthesia: Block,Regional, Local MAC, Local and MAC RN Documented Start/Stop Times: Operation Date: 10/13/25 13:30 Case Time Into Pre-Op 10/13/25 11:41 Out of Pre-Op 10/13/25 13:32 Anesthesia Start 10/13/25 13:35 Into Room 10/13/25 13:35 Procedure Start 10/13/25 14:06 Procedure End 10/13/25 15:45 Anesthesia End 10/13/25 15:47 Out of Room 10/13/25 15:47 Into Recovery 10/13/25 15:50 Procedure Start Time: 14:05 Procedure Stop Time: 15:45 Select all DRAINS/GRAFTS/IMPLANTS that apply: None Estimated Blood Loss: 10 Specimen collected: No Description of surgery: HPI: Patient is an 84-year-old female with a previous right upper arm cephalic v ein fistula creation. This has matured in a satisfactory manner however they have been unable to access due to excessive vessel depth beneath extensive adipose tissue. She is taken now for transposition to aid in access. Description of procedure: Upon obtaining informed consent and verification correct patient procedure site the patient was taken the operating room where she had a regional block administered by anesthesia. She was then positioned prepped and draped in usual sterile fashion and timeout performed. Skin was tested for block efficacy and the patient some residual sensation so additional 1% lidocaine was injected along the intended incision site. There was 1 large branch inferior to the antecubital crease that needed ligation so a transverse incision was made at this location and Bovie used to dissect down through the subcutaneous tissue until the fistula and branch were visualized. At this point sharp dissection was used to dissect free the branch circumferentially and a right angle used to place a vessel loop. The vessel loop was then used to occlude the branch to confirm that there was continued flow through the outflow of the fistula. Next longitudinal incision was made superior to the antecubital crease overlying the fistula extending from just above the antecubital crease to over the deltoid muscle. Bovie was used to dissect through the subcutaneous tissue and self-retaining retractors put in position. Further dissection was carried down with Bovie until the fistula was visualized at which point sharp dissection was dissected free circumferentially the vessel throughout the entirety of the surgical field. Additional sidebranches were ligated with silk ties and divided. Finally the branch inferior to the antecubital crease was ligated with silk ties and the incision inspected for hemostasis. The fascial layer and superficial adipose tissue were then closed with a running 3-0 Vicryl elevating the fistula above the layers. A subcutaneous flap was then created to allow the fistula to lay in position not directly below the incision and to obtain adequate tissue laxity to close without compressing the fistula. The skin incision was then closed with interrupted 3-0 Vicryl followed by 4-0 Monocryl and Prineo for the skin. Dry sterile dressing was then applied and the patient taken the recovery room with anticipated discharge to home. Surgical Findings: See above Complications Complications: No
--- NOTE | 2025-10-13 15:53 | PCM.POST.ANE ---
Anesthesia: Postop Eval I Current Vital Signs Temperature: 97.9 F Pulse Rate: 73 Blood Pressure: 152/48 Respiratory Rate: 16 Pulse Ox: 97 Assessment Airway patent: Yes Spontaneous unlabored respirations: Yes nausea: No Vomiting: No Anesthesia Complication: No Fluid Hydration Crystalloid volume administer (ml): 400 Total IV fluid infused: 400 Progress Note Anesthesia document: Postop Eval 1 completed: Yes
--- NOTE | 2025-10-13 17:06 | POSTOPAN2_ITS ---
Anesthesia Postop Eval I Sum Postop Eval Completion status Anesthesia document: Postop Eval 1 completed: Yes Anesthesia Postop Eval I Summary Anesthesia Postop Eval I Summary: Anesthesia Postop Eval I: Assessment Summary Airway patent Yes 10/13/25 15:53 ELASTIC ATTACHER [email or web address] Spontaneous unlabored Yes 10/13/25 15:53 ELASTIC ATTACHER [email or web address] respirations Mental status nausea No 10/13/25 15:53 ELASTIC ATTACHER [email or web address] Vomiting No 10/13/25 15:53 ELASTIC ATTACHER [email or web address] Anesthesia Postop Eval I: Fluid Summary Crystalloid volume administer 400 10/13/25 15:53 ELASTIC ATTACHER [email or web address] (ml) Colloids volume administered ( ml) Blood Product volume administered (ml) Total IV fluid infused 400 10/13/25 15:53 ELASTIC ATTACHER [email or web address] Anesthesia Postop Eval I: Summary Notes Anesthesia Complication No 10/13/25 15:53 ELASTIC ATTACHER [email or web address] Anesthesia Complication Comment: Post-operative progress note Anesthesia: Postop Eval II Evaluation Mental status: Awake and Calm Pain Level: 1 nausea: No Vomiting: No
--- NOTE | 2025-10-13 17:06 | PCM.POSTANE2 ---
Anesthesia Postop Eval I Sum Postop Eval Completion status Anesthesia document: Postop Eval 1 completed: Yes Anesthesia Postop Eval I Summary Anesthesia Postop Eval I Summary: Anesthesia Postop Eval I: Assessment Summary Airway patent Yes 10/13/25 15:53 [email or web address] Spontaneous unlabored Yes 10/13/25 15:53 [email or web address] respirations Mental status nausea No 10/13/25 15:53 AIR [email or web address] Vomiting No 10/13/25 15:53 [email or web address] Anesthesia Postop Eval I: Fluid Summary Crystalloid volume administer 400 10/13/25 15:53 [email or web address] (ml) Colloids volume administered ( ml) Blood Product volume administered (ml) Total IV fluid infused 400 10/13/25 15:53 [email or web address] Anesthesia Postop Eval I: Summary Notes Anesthesia Complication No 10/13/25 15:53 [email or web address] Anesthesia Complication Comment: Post-operative progress note Anesthesia: Postop Eval II Evaluation Mental status: Awake and Calm Pain Level: 1 nausea: No Vomiting: No
== END 2025-10-13 17:21 | disposition home or self-care (01) ==
LOC: SDC 11:34 → AC 11:35
PROVIDERS: PCP Student in an Organized Health Care Education/Training Program; Referring Provider Surgery Trauma Surgery; Visit Provider Surgery Trauma Surgery
PROC: (CPT 36832; principal; 2025-10-13 13:15)
DX: T82.590A Other mechanical complication of surgically created arteriovenous fistula, initial encounter (principal); N18.4 Chronic kidney disease, stage 4 (severe); E11.22 Type 2 diabetes mellitus with diabetic chronic kidney disease; Z79.82 Long term (current) use of aspirin; I12.9 Hypertensive chronic kidney disease with stage 1 through stage 4 chronic kidney disease, or unspecified chronic kidney disease; Z79.899 Other long term (current) drug therapy; Y71.8 Miscellaneous cardiovascular devices associated with adverse incidents, not elsewhere classified
CPT/HCPCS: 36832; 01844; 82962; A4648; A4216; J2405